=== PATIENT | female | born 1945 | race Caucasian/White ===

== ENCOUNTER → 2017-06-12 | Day surgery (SDC) | payer OTHER, MEDICARE ==
[2017-06-06 11:08] VITALS: Ht 160 cm; Wt 70.5 kg
[~2017-06-12] VITALS: Ht 160 cm; Wt 70.5 kg
[~2017-06-12] MED LIST: AMLO-114 PO; APR25 PO; CARV12.52 PO; CRAN1CAP14 PO; DICY10CA12 PO; HYDR-4079 PO; LIDOCAINE HCL 2% 2 ML VIAL (20MG/ML) ONE; LOSA100T65 PO; MIDAZOLAM HCL 1 MG/ML 2ML VIAL ONE; ONDANSETRON INJ 2 MG/ML 2 ML VIAL ONE; PROPOFOL IV EMULSION 10 MG/ML 20 ML VIAL IV ONE; PRVC/40 PO; RANI150T2 PO; SENNTAB23 PO; SODIUM CHLORIDE 0.9% 500ML 500 ML IV ONE; SPIR25TA PO
[2017-06-12 10:19] VITALS: TEMP 36.2
--- NOTE | 2017-06-12 11:00 | Endo History and Physical ---
History & Physical Date of Service: Jun 12, 2017. Chief Complaint: Chawla's Referring Physician: Dr. León History of Present Illness patient with Chawla's esophagus. Past Medical History Osteoporosis, Arthritis, Gastrointestinal Disorder, Anxiety, Reflux, Heart Disease, Hypertension, Kidney Disease, Depression Past Surgical History Hx Cardiac Surgery: Yes (HEART CATH X 3/NO STENTS) Hx Internal Defibrillator: No Hx Pacemaker: No Hx Abdominal Surgery: Yes (APPY, LORRI, EBONY, BILAT OOPHERECTOMY) Hx Post-Op Nausea and Vomiting: No Hx Cancer Surgery: No Hx Thoracic Surgery: No Hx Orthopedic: Yes (LEFT TKA, LUMBAR FUSION X 2, LEFT/RT CTR) Hx Urinary Tract Surgery: No Family History None Social History Smoking Status: Former Smoker Hx Substance Use: Yes (SEE MED REC) Hx Alcohol Use: No Allergies Coded Allergies: Gabapentin (Verified Adverse Reaction, Unknown, cough, 06/06/17) Ramipril (Verified Adverse Reaction, Unknown, cough, 06/06/17) Current Medications Reported Home Medications Medications Dose Route/Sig Max Daily Dose Days Date Category Apresoline (Hydralazine Hcl) 25 Mg Tab 25 Mg PO BID 06/06/17 Reported Dicyclomine Hcl 10 Mg Cap 1 Cap PO TID PRN 06/06/17 Reported [place] 10MG/325MG (Acetaminophen/Hydrocodone Bitart) Tab 1 Tab PO Q8 PRN 5 04/19/16 Rx Aldactone (Spironolactone) 25 Mg Tab 25 Mg PO QAM 04/18/16 Reported Cozaar (Losartan Potassium) 100 Mg Tab 100 Mg PO QAM 03/20/16 Reported Ranitidine HCl 150 Mg Tab 150 Mg PO BID 01/31/16 Reported Coreg (Carvedilol) 12.5 Mg Tab 12.5 Mg PO BID 03/01/15 Reported Norvasc (Amlodipine Besylate) 10 Mg Tab 10 Mg PO QAM 03/01/15 Reported Cranberry Plus Vitamin C (Cranberry-Vitamin C-Vitamin E) 1 Cap Cap 2 Cap PO QAM 01/28/15 Reported Pravastatin Sodium (Pravastatin Sod) 40 Mg Tab 40 Mg PO QAM 11/24/13 Reported Stool Softener (Sennosides-Docusate Sodium) 1 Tab Tab 2-3 Tablet PO HS 09/02/13 Reported Vital Signs Weight (Kilograms): 70.45 Height (Feet): 5 Height (Inches): 3 Date Time Temp Pulse Resp B/P (MAP) Pulse Ox O2 Delivery O2 Flow Rate FiO2 06/12/17 10:19 36.2 59 20 164/64 (97) 99 Room Air Physical Exam General Appearance: no apparent distress Respiratory/Chest: Auscultation: breath sounds normal Cardiovascular: Heart Auscultation: RRR Abdomen: Inspection & Palpation: soft Liver: non-tender Assessment and Plan stable for EGD
--- NOTE | 2017-06-12 11:29 | Discharge Instructions ---
Endoscopy Patient Instructions Date / Procedure(s) Performed Jun 12, 2017. EGD Allergy Information Coded Allergies: Gabapentin (Verified Adverse Reaction, Unknown, cough, 06/06/17) Ramipril (Verified Adverse Reaction, Unknown, cough, 06/06/17) Discharge Date / Findings Jun 12, 2017. Very short segment of Chawla's-- Biopsied. Provider Instructions Activity Restrictions - No exercising or heavy lifting for 24 hours. - Do not drink alcohol the day of the procedure. - Do not drive a car or operate machinery until the day after the procedure. - Do not make any important decisions or sign important papers in 24 hours after the procedure. Following Day: - Return to full activity which may include returning to work/school. Diet Start your diet with liquids and light foods (jello, soup, juice, toast). Then eat your usual diet if not nauseated. Treatment For Common After Affects For mild abdominal pain, bloating, or excessive gas: - Rest - Eat lightly - Lie on right side Follow-Up Information Follow-up with Dr. León as scheduled Anesthesia Information What You Should Know You have had a procedure that required some medicine to reduce anxiety and discomfort. This treatment is called moderate sedation. After receiving the treatment, you may be sleepy, but you will be able to breathe on your own. The effects of the treatment may last for several hours. Follow these instructions along with Activity/Diet recommendations noted above: * Do NOT do anything where dizziness or clumsiness would be dangerous. * Rest quietly at home today, then you can be up and about tomorrow. * Have a responsible person stay with you the rest of today. * You may have had an I.V. today. If so, you may take the dressing off later today. Recommendations Call your doctor if: * Trouble breathing * Continuous vomiting for more than 24 hours * Temperature above 101 degrees * Severe abdominal pain or bloating * Pain not relieved by pain medicine ordered * There is increased drainage or redness from any incision * A large amount of rectal bleeding greater than 2-3 tablespoons. (If you had a polyp/s removed or have hemorrhoids, a small amount of blood - from the rectum is to be expected.) * You have any unanswered questions or concerns. IN THE EVENT OF A SERIOUS EMERGENCY, GO TO THE NEAREST EMERGENCY ROOM Your discharge instructions were prepared by provider Jesus Angel. Patient Instructions Signature Page Georgina Lexy Patient (or Guardian) Signature/Date: I have read and understand the instructions given to me by my caregivers. Caregiver/RN/Doctor Signature/Date: The above-named patient and/or guardian has received patient instructions on this date. + Original Patient Signature Page (only) stays with chart. Please make copy for patient.
--- NOTE | 2017-06-12 11:40 | GI REPORT ---
Procedure Date: 06/12/2017 10:25 AM Procedure: Upper GI endoscopy Indications: Chawla's esophagus Medicines: See the Anesthesia note for documentation of the administered medications Complications: No immediate complications. Estimated Blood Loss: Estimated blood loss was minimal. Procedure: Pre-Anesthesia Assessment: - Prior to the procedure, a History and Physical was performed, and patient medications, allergies and sensitivities were reviewed. The patient's tolerance of previous anesthesia was reviewed. - The risks and benefits of the procedure and the sedation options and risks were discussed with the patient. All questions were answered and informed consent was obtained. - Patient identification and proposed procedure were verified prior to the procedure by the physician and the nurse. The procedure was verified in the pre-procedure area. - Pre-procedure physical examination revealed no contraindications to sedation. - After reviewing the risks and benefits, the patient was deemed in satisfactory condition to undergo the procedure. After obtaining informed consent, the endoscope was passed under direct vision. Throughout the procedure, the patient's blood pressure, pulse, and oxygen saturations were monitored continuously. The scope was introduced through the mouth, and advanced to the third part of duodenum. The upper GI endoscopy was accomplished without difficulty. The patient tolerated the procedure well. Findings: The Z-line was irregular. Biopsies were taken with a cold forceps for histology. Verification of patient identification for the specimen was done by the physician and nurse using the patient's name and medical record number. Estimated blood loss was minimal. A small hiatus hernia was present. The examined duodenum was normal. The cardia and gastric fundus were normal on retroflexion. Impression: - Z-line irregular c/w very short segment Chawla's. Biopsied. - Small hiatus hernia. - Normal examined duodenum. Recommendation: - Await pathology results. - Continue present medications. - Discharge patient to home. Jesus Angel M.D. Jseus Angel MD 06/12/2017 11:39:28 AM This report has been signed electronically. Note Initiated On: 06/12/2017 10:25 AM I attest to the content of the Intraoperative Record and orders documented therein, exceptions below
[2017-06-12 12:02] VITALS: BP 130/53; PULSE 49; O2SAT 95
--- NOTE | 2017-06-12 12:08 | Anesthesiology Progress Note ---
Anesthesia Post Op Note Date & Time Jun 12, 2017 at 12:08 Vital Signs Pain Intensity: 0 Vital Signs Past 12 Hours Date Time Temp Pulse Resp B/P (MAP) Pulse Ox O2 Delivery O2 Flow Rate FiO2 06/12/17 12:02 49 18 130/53 (78) 95 Room Air 06/12/17 11:44 48 18 124/49 (74) 95 Room Air 06/12/17 11:28 56 16 106/87 (93) 95 Room Air 06/12/17 10:19 36.2 59 20 164/64 (97) 99 Room Air Notes Mental Status: alert / awake / arousable, participated in evaluation Pt Amnestic to Procedure: Yes Nausea / Vomiting: adequately controlled Pain: adequately controlled Airway Patency, RR, SpO2: stable & adequate BP & HR: stable & adequate Hydration State: stable & adequate Anesthetic Complications: no major complications apparent
== END | disposition home or self-care (01) ==
LOC: C.GI 09:54
PROVIDERS: ATTEND Internal Medicine Gastroenterology
DX: K22.70 Barrett's esophagus without dysplasia (principal); K22.8 Other specified diseases of esophagus; K44.9 Diaphragmatic hernia without obstruction or gangrene; I12.9 Hypertensive chronic kidney disease with stage 1 through stage 4 chronic kidney disease, or unspecified chronic kidney disease; M81.0 Age-related osteoporosis without current pathological fracture; F41.9 Anxiety disorder, unspecified; K21.9 Gastro-esophageal reflux disease without esophagitis; N18.9 Chronic kidney disease, unspecified; F32.9 Major depressive disorder, single episode, unspecified; Z96.652 Presence of left artificial knee joint; Z87.891 Personal history of nicotine dependence; Z98.890 Other specified postprocedural states; Z90.89 Acquired absence of other organs; Z90.722 Acquired absence of ovaries, bilateral; Z90.49 Acquired absence of other specified parts of digestive tract

== ENCOUNTER 2020-09-30 21:21 | Inpatient (IN) ==
[2020-09-30] MEDS ORDERED: ACETAMINOPHEN 1,000 MG/100 ML VIAL IV STA (21:55)
[2020-09-30 22:44] LABS: Basophils # (auto) 0.03 K/uL (0-0.2); Basophils % (auto) 0.3 %; Eosinophils # (auto) 0.13 K/uL (0-0.5); Eosinophils % (auto) 1.4 %; Hematocrit (blood only) 33.3 % (37-47); Immature Granulocytes # (auto) 0.03 K/uL (0.00-0.02); Immature Granulocytes % (auto) 0.3 %; Lymphocytes # (auto) 1.34 K/uL (1.2-3.4); Lymphocytes % (auto) 14.2 %; Mean Corpuscular Hemoglobin 29.3 pg (25-34); Mean Corpuscular Volume 88.8 fL (80-100); Mean Platelet Volume 10.5 fL (7.4-10.4); Monocytes # (auto) 1.36 K/uL (0.11-0.59); Monocytes % (auto) 14.4 %; Neutrophils # (auto) 6.55 K/uL (1.4-6.5); Neutrophils % (auto) 69.4 %; Platelet Count 224 K/uL (130-400); RDW Coefficient of Variation 13.9 % (11.5-14.5); RDW Standard Deviation 45.5 fL (36.4-46.3); Red Blood Count 3.75 M/uL (4.2-5.4); White Blood Count 9.44 K/uL (4.8-10.8)
[2020-09-30 22:56] LABS: INR 1.1 (0.9-1.1); Partial Thromboplastin Time 25.9 Seconds (21.0-31.0); Prothrombin Time 10.8 Seconds (9.0-12.0)
[2020-09-30 23:00] LABS: BUN Creatinine Ratio 17.1 (10-20); Calcium 9.3 mg/dl (8.5-10.1); Creatinine Clr Calc Pharmacy 39.5 ml/min; Est GFR (African American) 52.6; Est GFR (Non-African American) 45.4; Magnesium 1.7 mg/dl (1.8-2.4); Potassium 3.4 mmol/L (3.5-5.1)
[2020-09-30 23:05] LABS: Albumin Globulin Ratio 0.7 (0.9-2); Bilirubin,Total 0.8 mg/dl (0.2-1); Globulin 4.1 gm/dl (2.5-4.0); Total Protein 7.1 gm/dl (6.4-8.2); Troponin I 0.034 ng/ml (0-0.045)
[2020-09-30] MEDS ORDERED: MAGNESIUM SULFATE / D5W 1 GM/100 ML BAG IV STA (23:05)
[2020-09-30] MEDS ORDERED: FUROSEMIDE 40 MG/4 ML VIAL IV STA (23:46)
--- NOTE | 2020-09-30 23:46 | Emergency Department Note ---
History of Present Illness General Chief complaint: Swelling/Edema to Extremity Stated complaint: CALF PAIN & EDEMA Time Seen by Provider: 09/30/20 21:47 History of Present Illness Maximum Pain Intensity: 10 This 75-year-old presents to the ER complaining of increasing leg pain and swell ing for the past few days Location: Legs Quality: Painful Severity: Moderate Duration: Past few days Timing: Started a few days ago Context: Pain got worse and patient came in Modifying factors: better with rest; worse with palpation Patient denies history of heart failure. Patient denies chest pain, abdominal pain, fever, chills, flulike illness. She states her temperature normally is 99. 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 Home Medications Medication Instructions Recorded Confirmed Type Cranberry Plus Vitamin C 1 cap PO QPM 07/01/19 09/30/20 History Gaviscon 1 tab PO UD PRN 07/01/19 09/30/20 History Premarin 0.625 mg VAGINAL 2XWK 07/01/19 09/30/20 History amlodipine 10 mg PO QAM 07/01/19 09/30/20 History carvedilol 12.5 mg PO BID 07/01/19 09/30/20 History cyanocobalamin (vitamin B-12) 2,500 mcg PO QPM 07/01/19 09/30/20 History docusate sodium [Stool Softener] 300 mg PO QPM 07/01/19 09/30/20 History hydralazine 25 mg PO TID 07/01/19 09/30/20 History hydrocodone-acetaminophen 1 tab PO BID 07/01/19 09/30/20 History losartan 50 mg PO BID 07/01/19 09/30/20 History nitroglycerin 0.4 mg SUBLINGUAL UD PRN 07/01/19 09/30/20 History omeprazole 20 mg PO QAM 07/01/19 09/30/20 History pravastatin 40 mg PO QAM 07/01/19 09/30/20 History spironolactone 25 mg PO QAM 07/01/19 09/30/20 History aspirin 81 mg chewable tablet 81 mg PO DAILY 09/01/20 09/30/20 History Allergies Allergy/AdvReac Type Severity Reaction Status Date / Time oxycodone Allergy Intermediate "makes me Verified 09/30/20 22:31 go crazy" gabapentin Allergy Mild cough Verified 09/30/20 22:31 ramipril Allergy Mild cough Verified 09/30/20 22:31 Past Med/Surg History Medical History Aortic stenosis "moderately severe by echo September 2013" Chawla's esophagus Cardiac murmur Chronic back pain Chronic sialoadenitis CKD (chronic kidney disease) stage 3, GFR 30-59 ml/min Coronary artery disease "nonocclusive disease by cath [facility] [place]" Esophageal motility disorder "noted on barium swallow 10/2014" GERD (gastroesophageal reflux disease) History of esophageal dilatation Hyperlipidemia Hypertension Leaky heart valve per pt aorta--follows with Dr. Nivia Wang historian Surgical History History of appendectomy History of bilateral tubal ligation History of cardiac cath x3--last 12/2018 no stents History of carpal tunnel release of both wrists History of cholecystectomy History of colonoscopy History of esophagogastroduodenoscopy (EGD) History of hysterectomy History of lumbar spinal fusion History of lumpectomy cant remember which breast---benign fatty tissue History of sinus surgery History of tonsillectomy History of tooth extraction History of total left knee replacement (TKR) History of umbilical hernia repair Family History Other No family history of adverse response to anesthesia No family history of bleeding disorder Social History Smoking Status: Former smoker Second Hand Exposure: Yes (husand smoked); Hx Alcohol Use: No Hx Substance Use: No Preferred Language: Pashto Communication Ability: Effective Mold Clamper Required: No Beliefs That Will Affect Care: None Current Living Situation: Spouse Feels Safe at Home: Yes Assistive Devices: Cane, Glasses and Walker Review of Systems A total of 10 systems reviewed and were otherwise negative Physical Exam Vital Signs Vital Signs - 24 hr 09/30/20 21:28 09/30/20 22:00 09/30/20 22:28 Temperature 37.8 C H Temperature Source Oral Pulse Rate 64 66 65 Pulse Rate from SpO2 Sensor Pulse Rhythm Regular Pulse Strength Normal Respiratory Rate 16 19 20 Respiratory Effort / Characteristics Non-Labored Respiratory Depth Normal Respiratory Pattern Regular Blood Pressure 174/59 H 177/72 H Blood Pressure Mean 97 107 Blood Pressure Position Sitting Pulse Oximetry 94 Oxygen Delivery Method Room Air Sepsis Recent Fever Within 48 Hours No Sepsis New/Unexplained Change in Mental Status N/A Sepsis Action Taken by Nursing No Action Required 09/30/20 22:30 09/30/20 22:40 09/30/20 23:32 Temperature Temperature Source Pulse Rate 64 66 66 Pulse Rate from SpO2 Sensor Pulse Rhythm Pulse Strength Respiratory Rate 16 17 19 Respiratory Effort / Characteristics Respiratory Depth Respiratory Pattern Blood Pressure 183/73 H 146/69 H Blood Pressure Mean 109 94 Blood Pressure Position Pulse Oximetry 96 93 Oxygen Delivery Method Room Air Room Air Sepsis Recent Fever Within 48 Hours Sepsis New/Unexplained Change in Mental Status Sepsis Action Taken by Nursing 09/30/20 23:34 10/01/20 00:00 10/01/20 00:30 Temperature Temperature Source Pulse Rate 65 65 60 Pulse Rate from SpO2 Sensor 65 Pulse Rhythm Pulse Strength Respiratory Rate 20 17 18 Respiratory Effort / Characteristics Respiratory Depth Respiratory Pattern Blood Pressure 147/66 H 147/49 H Blood Pressure Mean 93 81 Blood Pressure Position Pulse Oximetry 92 93 Oxygen Delivery Method Room Air Room Air Sepsis Recent Fever Within 48 Hours Sepsis New/Unexplained Change in Mental Status Sepsis Action Taken by Nursing VITALS: Vitals are noted on the nurse's note and reviewed by myself. Vital sig ns stable. GENERAL: Pleasant female, in no acute distress, nondiaphoretic, well-developed well-nourished. SKIN: Capillary reflex less than 2 seconds. HEENT: Normocephalic. PERRLA. EOMI. Nares patent. Mucous membranes moist. Neck is supple without nuchal rigidity. HEART: Regular rate and rhythm LUNGS: Clear to auscultation bilaterally without wheezes, rales or rhonchi. No retractions or accessory muscle use. ABDOMEN: Positive bowel sounds x 4. Normal tympanic percussion. Soft, nontender, without masses or organomegaly. Claudio sign negative. No guarding or rebound tenderness. MUSCULOSKELETAL: No gross musculoskeletal defects. +1 pitting edema up to the mid tib-fib bilaterally. NEURO: Patient was alert and oriented to person place and time. Normal sensation to light and sharp touch. No focal neurological deficits. Course Administered Medications Discontinued Medications Fentanyl Citrate (Fentanyl Citrate 100 Mcg/2 Ml Vial) 50 mcg IV NOW STA Stop: 09/30/20 23:50 Last Admin: 10/01/20 00:11 Dose: 50 mcg Documented by: [id number] Furosemide (Furosemide 40 Mg/4 Ml Vial) 40 mg IV NOW STA Stop: 09/30/20 23:47 Last Admin: 10/01/20 00:16 Dose: 40 mg Documented by: [id number] Acetaminophen (Ofirmev) 1,000 mg in 100 mls @ 400 mls/hr IV NOW STA Stop: 09/30/20 22:09 Last Infusion: 09/30/20 22:56 Dose: 0 mls/hr Documented by: [id number] Admin: 09/30/20 22:40 Dose: 400 mls/hr Documented by: [id number] Magnesium Sulfate/Dextrose (Magnesium Sulfate / D5w) 1 gm in 100 mls @ 100 mls/hr IV NOW STA Stop: 10/01/20 00:04 Last Infusion: 10/01/20 00:50 Dose: 0 mls/hr Documented by: [id number] Admin: 09/30/20 23:32 Dose: 100 mls/hr Documented by: [id number] Medical Decision Making Medical Records Attestation: I reviewed the patient's medical records. Home Medications Current Medication List: was personally reviewed by me Laboratory Data Attestation: I reviewed the patient's lab results. Result diagrams: 09/30/20 22:32 09/30/20 22:32 Lab Results 09/30/20 09/30/20 09/30/20 Range/Units 22:32 22:32 22:32 WBC 9.44 (4.8-10.8) K/uL RBC 3.75 L (4.2-5.4) M/uL Hgb 11.0 L (12.0-16.0) g/dL Hct 33.3 L (37-47) % MCV 88.8 (80-100) fL MCH 29.3 (25-34) pg MCHC 33.0 (32-36) g/dL RDW Std Deviation 45.5 (36.4-46.3) fL RDW Coeff of Breanne 13.9 (11.5-14.5) % Plt Count 224 (130-400) K/uL MPV 10.5 H (7.4-10.4) fL Immature Gran % (Auto) 0.3 % Neut % (Auto) 69.4 % Lymph % (Auto) 14.2 % [facility] % (Auto) 14.4 % Eos % (Auto) 1.4 % Baso % (Auto) 0.3 % Neut # (Auto) 6.55 H (1.4-6.5) K/uL Lymph # (Auto) 1.34 (1.2-3.4) K/uL [facility] # (Auto) 1.36 H (0.11-0.59) K/uL Eos # (Auto) 0.13 (0-0.5) K/uL Baso # (Auto) 0.03 (0-0.2) K/uL Immature Gran # (Auto) 0.03 H (0.00-0.02) K/uL PT 10.8 (9.0-12.0) Seconds INR 1.1 (0.9-1.1) APTT 25.9 (21.0-31.0) Seconds PTT Ratio 1.0 Sodium 142 (136-145) mmol/L Potassium 3.4 L (3.5-5.1) mmol/L Chloride 109 H (98-107) mmol/L Carbon Dioxide 27 (21-32) mmol/L Anion Gap 6.0 (3-11) BUN 20 H (7-18) mg/dl Creatinine 1.16 (0.6-1.2) mg/dl Est Cr Clr Drug Dosing 39.5 ml/min Est GFR ( Amer) 52.6 Est GFR (Non-Af Amer) 45.4 BUN/Creatinine Ratio 17.1 (10-20) Glucose 110 H (70-99) mg/dl Calcium 9.3 (8.5-10.1) mg/dl Magnesium 1.7 L (1.8-2.4) mg/dl Total Bilirubin 0.8 (0.2-1) mg/dl AST 15 (15-37) U/L ALT 10 L (12-78) U/L Alkaline Phosphatase 87 (45-117) U/L Total Creatine Kinase 67 (26-192) U/L Troponin I 0.034 (0-0.045) ng/ml NT-Pro-B Natriuret Pep 4419 H (0-1800) pg/ml Total Protein 7.1 (6.4-8.2) gm/dl Albumin 3.0 L (3.4-5.0) gm/dl Globulin 4.1 H (2.5-4.0) gm/dl Albumin/Globulin Ratio 0.7 L (0.9-2) 10/01/20 Range/Units 00:42 WBC (4.8-10.8) K/uL RBC (4.2-5.4) M/uL Hgb (12.0-16.0) g/dL Hct (37-47) % MCV (80-100) fL MCH (25-34) pg MCHC (32-36) g/dL RDW Std Deviation (36.4-46.3) fL RDW Coeff of Breanne (11.5-14.5) % Plt Count (130-400) K/uL MPV (7.4-10.4) fL Immature Gran % (Auto) % Neut % (Auto) % Lymph % (Auto) % [facility] % (Auto) % Eos % (Auto) % Baso % (Auto) % Neut # (Auto) (1.4-6.5) K/uL Lymph # (Auto) (1.2-3.4) K/uL [facility] # (Auto) (0.11-0.59) K/uL Eos # (Auto) (0-0.5) K/uL Baso # (Auto) (0-0.2) K/uL Immature Gran # (Auto) (0.00-0.02) K/uL PT (9.0-12.0) Seconds INR (0.9-1.1) APTT (21.0-31.0) Seconds PTT Ratio Sodium (136-145) mmol/L Potassium (3.5-5.1) mmol/L Chloride (98-107) mmol/L Carbon Dioxide (21-32) mmol/L Anion Gap (3-11) BUN (7-18) mg/dl Creatinine (0.6-1.2) mg/dl Est Cr Clr Drug Dosing ml/min Est GFR ( Amer) Est GFR (Non-Af Amer) BUN/Creatinine Ratio (10-20) Glucose (70-99) mg/dl Calcium (8.5-10.1) mg/dl Magnesium (1.8-2.4) mg/dl Total Bilirubin (0.2-1) mg/dl AST (15-37) U/L ALT (12-78) U/L Alkaline Phosphatase (45-117) U/L Total Creatine Kinase (26-192) U/L Troponin I 0.045 (0-0.045) ng/ml NT-Pro-B Natriuret Pep (0-1800) pg/ml Total Protein (6.4-8.2) gm/dl Albumin (3.4-5.0) gm/dl Globulin (2.5-4.0) gm/dl Albumin/Globulin Ratio (0.9-2) Imaging Data Attestation: I personally reviewed and interpreted this imaging study as follows: MDM Narrative Prior records/ancillary studies reviewed and summarized above. Nursing notes reviewed. Additional history obtained from family. The patient's history was concerning for leg pain and swelling. Differential diagnosis: Etiologies such as CHF, DVT, metabolic, infection, hypo/hyperglycemia, electrolyte abnormalities, cardiac sources, intracerebral event, toxicologic, neurologic, as well as others were entertained. Physical examination: As above. ER treatment provided: IV Lock An order was placed for continuous cardiac monitoring. The monitor shows a rate of 60-1 10 with a sinus rhythm. Tylenol, Lasix, fentanyl, magnesium On reassessment the patient felt better. Diagnostics interpretation by me: ECG: Ordered for weakness EKG: Normal sinus, normal intervals, left ventricular hypertrophy, no acute ST-T wave changes. Rate of 63. Impression normal sinus rhythm with left ventricular perjury interpreted by myself I think arrhythmia is unlikely. EKG shows normal sinus rhythm with no interval abnormalities such as QT prolongation or WPW. There are no findings to suggest Brugada syndrome. Cardiac monitoring in the emergency department reveals no tachycardic or bradycardic dysrhythmia. Hypertrophic cardiomyopathy was considered but there are no clear historical elements pointing toward this. EKG is not suggestive. The QRS voltage is not extremely large and there are no suggestive Q waves. The labs revealed elevated BNP Negative troponin x2 Low magnesium Imaging studies: Chest x-ray with no acute consolidation, pneumothorax or free air per my interpretation US VENOUS BILATERAL LOWER EXTREMITIES: No evidence of DVT within the lower extremities. Radiologist: Ej Love MD Consultation: A consultation was placed with the hospitalist, Dr Mauro. The case was discussed and diagnostics were reviewed. The patient was evaluated in the ER for further treatment. Exam and history seem consistent with worsening leg pain who cannot tolerate walking. Patient will be evaluated for possible admission. She was given Lasix for the swelling. No heart failure on x-ray. Patient was given a few rounds of pain meds. She felt uncomfortable walking. She is agreeable to treatment plan of possible admission. By the evaluation outlined above emergent etiologies such as infection, electrolyte abnormalities, intracerebral event, toxologic, neurologic, abnormalities blood glucose, metabolic, as well as others were deemed relatively unlikely. The pt informed about the findings as listed above. All questions were answered and pleased with the treatment. Case reviewed with my attending. The chart was completed utilizing [employer] Speech voice recognition software. Grammatical errors, random word insertions, pronoun errors, and incomplete sentences are an occassional consequence of this system due to software limitations, ambient noise, and hardware issues. Any formal questions or concerns about the content, text, or information contained within the body of this dictation should be directly addressed to the physician phys assistant for clarification. Impression & Plan Bilateral leg pain, Hypomagnesemia Discharge Plan Visit Data Chief Complaint: Swelling/Edema to Extremity Stated Complaint: CALF PAIN & EDEMA ED Provider: P[facility] ED Midlevel Provider: Asiya Galvan Discharge Problem: Bilateral leg pain, Hypomagnesemia Patient Disposition: Being Evaluated by Hospitalist Condition: Good Forms Stand Alone Forms: My [facility] Prescriptions Prescriptions: No Action aspirin 81 mg tablet,chewable 81 mg PO DAILY RF: 0 losartan 50 mg Tablet 50 mg PO BID RF: 0 carvedilol 12.5 mg Tablet 12.5 mg PO BID RF: 0 pravastatin 40 mg Tablet 40 mg PO QAM RF: 0 hydralazine 25 mg Tablet 25 mg PO TID RF: 0 Cranberry Plus Vitamin C 140-100 mg Capsule 1 cap PO QPM RF: 0 hydrocodone-acetaminophen 10-325 mg Tablet 1 tab PO BID RF: 0 spironolactone 25 mg Tablet 25 mg PO QAM RF: 0 amlodipine 10 mg Tablet 10 mg PO QAM RF: 0 Premarin 0.625 mg/gram Cream 0.625 mg VAGINAL 2XWK RF: 0 nitroglycerin 0.4 mg Tablet, Sublingual 0.4 mg sublingual UD PRN (Reason: Angina) RF: 0 omeprazole 20 mg Capsule,Delayed Release(Dr/Ec) 20 mg PO QAM RF: 0 docusate sodium [Stool Softener] 100 mg Tablet 300 mg PO QPM RF: 0 Gaviscon 80-14.2 mg Tablet,Chewable 1 tab PO UD PRN (Reason: Abdominal Discomfort) RF: 0 cyanocobalamin (vitamin B-12) 2,500 mcg Tablet 2,500 mcg PO QPM RF: 0 Referrals Referrals: Jazzy Appiah DO [Primary Care Provider] -
[2020-09-30] MEDS ORDERED: fentaNYL citrate 100 MCG/2 ML VIAL IV STA (23:49)
[2020-10-01] MEDS ORDERED: POTASSIUM CHLORIDE CRTAB 20 MEQ TABCR PO STA ×2 (01:09→04:28)
[2020-10-01 01:13] LABS: Troponin I 0.045 ng/ml (0-0.045)
--- NOTE | 2020-10-01 01:27 | Emergency Department Note ---
ED Visit Note The patient was seen and examined with Crystal Galvan PA-C. I agree with the history, physical and findings. Please see the note for disposition and details. New onset CHF. Patient was diuresed. She also noted moderate pain in her legs. No DVTs were noted. She was having significant difficulty walking. Consultation was made with internal medicine for admission. .
[2020-10-01] MEDS ORDERED: DOXYCYCLINE HYCLATE 100 MG in DEXTROSE 5% 100 ML IV STA (01:42)
--- NOTE | 2020-10-01 01:43 | History & Physical Report ---
Date of Service October 01, 2020 Assessment & Plan (1) CHF (congestive heart failure): ? Right-sided CHF, mild fluid retention symptoms presenting as bilateral leg swelling hx COPD, pulmonary hypertension as per records History dietary indiscretion Uncontrolled hypertension possibly contributory Secondary RLE cellulitis rule out bony foot injury, no overt sepsis for now rheumatic heart disease/VHD (severe , moderate AR, mild MR, mild TR on TTE 2018) PVD, stable carotid artery disease and stable PAD without classic claudication symptoms as per recent outpatient [facility] vascular surgery follow-up visit (08/2020) chronic anemia, hemoglobin at baseline chronic sialoadenitis as per records, periodic antibiotic Rx prescribed by [facility] [place] Hyperglycemia rule out DM Hypokalemia past tobacco abuse PCU Diuretic Rx Strict I/Os, daily weights, CHF education Update TTE, Cardiology consult RE CHF Titrate home BP meds Doxycycline for RLE cellulitis Plain x-rays of right foot Re: Pain rule out bony injury Check hemoglobin A1c Replace electrolytes PT OT eval DVT prophylaxis. Lovenox subcu Full code Text document was generated using [employer] voice recognition software. It may contain grammatical or spelling errors. Kindly contact undersigned for clarification of any documentation item in question. History of Present Illness Chief Complaint: Leg swelling, R foot pain Primary Care Provider: Jazzy Appiah, History obtained from patient, family, and records. Medical history significant for Medical history significant for hypertension, nonocclusive CAD, PVD, rheumatic heart disease as per records, VHD (severe , moderate AR, mild MR, mild TR on TTE 2018), COPD, pulmonary hypertension as per records, chronic anemia (baseline hemoglobin 11), chronic pain as per records, chronic sialoadenitis as per records, past tobacco abuse. Last confinement March 2016 for intractable neck pain secondary to muscle spasm. 2 days ago, patient noted bilateral leg swelling right greater than the left with some abdominal distention without unusual chest pain or S OB symptoms. Everything feels tight as per patient. Admits to salty food intake. Denies OTC NSAID intake. Patient later on noted bilateral leg pain with achy right foot pain worse on attempted ambulation. No unusual back pain, no recollection of recent trauma. Patient does not regularly check weight and BP at home. At the ER, patient given Lasix for possible CHF. Temperature elevation noted at the ER which according to patient is normal for her. MEDICAL HISTORY: As above. 08/11/2020 ABIs : RLE mild arterial occlusive disease, LLE moderate arterial occlusive disease SURGERIES: Carpal tunnel, hernia repair, cholecystectomy, back surgery, knee replacement, appendectomy, hysterectomy. FAMILY HISTORY: Hypertension, dementia, diabetes, heart disease and hypertension. PERSONAL AND SOCIAL HISTORY: Past tobacco abuse. No chronic intake of alcoholic beverages. Retired [employer] employee Allergies Allergy/AdvReac Type Severity Reaction Status Date / Time oxycodone AdvReac Intermediate "makes me Verified 10/01/20 01:44 go crazy" gabapentin AdvReac Mild cough Verified 10/01/20 01:44 ramipril AdvReac Mild cough Verified 10/01/20 01:44 Home Medications Medication Instructions Recorded Confirmed Type Cranberry Plus Vitamin C 1 cap PO QPM 07/01/19 09/30/20 History Gaviscon 1 tab PO UD PRN 07/01/19 09/30/20 History Premarin 0.625 mg VAGINAL 2XWK 07/01/19 09/30/20 History amlodipine 10 mg PO QAM 07/01/19 09/30/20 History carvedilol 12.5 mg PO BID 07/01/19 09/30/20 History cyanocobalamin (vitamin B-12) 2,500 mcg PO QPM 07/01/19 09/30/20 History docusate sodium [Stool Softener] 300 mg PO QPM 07/01/19 09/30/20 History hydralazine 25 mg PO TID 07/01/19 09/30/20 History hydrocodone-acetaminophen 1 tab PO BID 07/01/19 09/30/20 History losartan 50 mg PO BID 07/01/19 09/30/20 History nitroglycerin 0.4 mg SUBLINGUAL UD PRN 07/01/19 09/30/20 History omeprazole 20 mg PO QAM 07/01/19 09/30/20 History pravastatin 40 mg PO QAM 07/01/19 09/30/20 History spironolactone 25 mg PO QAM 07/01/19 09/30/20 History aspirin 81 mg chewable tablet 81 mg PO DAILY 09/01/20 09/30/20 History Past Med/Surg History Medical History Aortic stenosis "moderately severe by echo September 2013" Chawla's esophagus Cardiac murmur Chronic back pain Chronic sialoadenitis CKD (chronic kidney disease) stage 3, GFR 30-59 ml/min Coronary artery disease "nonocclusive disease by cath [facility] September 2013" Esophageal motility disorder "noted on barium swallow 10/2014" GERD (gastroesophageal reflux disease) History of esophageal dilatation Hyperlipidemia Hypertension Leaky heart valve per pt aorta--follows with Dr. Nivia Wang historian Surgical History History of appendectomy History of bilateral tubal ligation History of cardiac cath x3--last 12/2018 no stents History of carpal tunnel release of both wrists History of cholecystectomy History of colonoscopy History of esophagogastroduodenoscopy (EGD) History of hysterectomy History of lumbar spinal fusion History of lumpectomy cant remember which breast---benign fatty tissue History of sinus surgery History of tonsillectomy History of tooth extraction History of total left knee replacement (TKR) History of umbilical hernia repair Family History Other No family history of adverse response to anesthesia No family history of bleeding disorder Social History Smoking Status: Former smoker Second Hand Exposure: Yes (husand smoked); Hx Alcohol Use: No Hx Substance Use: No Preferred Language: Occitan Communication Ability: Effective 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 Beliefs That Will Affect Care: None Current Living Situation: Spouse Other Information That Helps Us Care for You: No Feels Safe at Home: Yes Safety Concerns: Feels Safe At This Time Assistive Devices: Cane, Glasses and Walker Review of Systems Review of Systems: As per HPI, all 10 systems reviewed, all other ROS negative Physical Exam Physical Exam: GENERAL: uncomfortable, anxious, no respiratory distress SKIN: Pallor , warm HEENT: Pale palpebral conjunctivae, no ptosis, dry buccal mucosa NECK : Supple, no tenderness CHEST : Decreased breath sounds, no tenderness HEART : RRR, systolic murmur loudest on the left sternal border, obliterated S1- S2 ABDOMEN: Some distention, nontender EXTREMITIES : Bilateral LE swelling R>L, warm RLE compared to LLE, minimal RLE, right foot tenderness NEUROLOGIC : Coherent, no facial asymmetry, no other gross focality Results & Data Results & Data ([facility]) Vital Signs (Past 12 Hours) Vital Signs Temp Pulse Resp BP Pulse Ox 10/01/20 00:30 60 18 147/49 H 10/01/20 00:00 65 17 147/66 H 93 09/30/20 23:34 65 20 92 09/30/20 23:32 66 19 146/69 H 93 09/30/20 22:40 66 17 183/73 H 96 09/30/20 22:30 64 16 09/30/20 22:28 65 20 09/30/20 22:00 66 19 177/72 H 09/30/20 21:28 37.8 C H 64 16 174/59 H 94 Laboratory Results Laboratory Results WBC 9.44 K/uL (4.8-10.8) 09/30/20 22:32 RBC 3.75 M/uL (4.2-5.4) L 09/30/20 22:32 Hgb 11.0 g/dL (12.0-16.0) L 09/30/20 22:32 Hct 33.3 % (37-47) L 09/30/20 22:32 MCV 88.8 fL (80-100) 09/30/20 22:32 MCH 29.3 pg (25-34) 09/30/20 22:32 MCHC 33.0 g/dL (32-36) 09/30/20 22:32 RDW Std Deviation 45.5 fL (36.4-46.3) 09/30/20 22:32 RDW Coeff of Breanne 13.9 % (11.5-14.5) 09/30/20 22:32 Plt Count 224 K/uL (130-400) 09/30/20 22:32 MPV 10.5 fL (7.4-10.4) H 09/30/20 22:32 Immature Gran % (Auto) 0.3 % 09/30/20 22:32 Neut % (Auto) 69.4 % 09/30/20 22:32 Lymph % (Auto) 14.2 % 09/30/20 22:32 [place] % (Auto) 14.4 % 09/30/20 22:32 Eos % (Auto) 1.4 % 09/30/20 22:32 Baso % (Auto) 0.3 % 09/30/20 22:32 Neut # (Auto) 6.55 K/uL (1.4-6.5) H 09/30/20 22:32 Lymph # (Auto) 1.34 K/uL (1.2-3.4) 09/30/20 22:32 [place] # (Auto) 1.36 K/uL (0.11-0.59) H 09/30/20 22:32 Eos # (Auto) 0.13 K/uL (0-0.5) 09/30/20: Baso # (Auto) 0.03 K/uL (0-0.2) 09/30/20: Immature Gran # (Auto) 0.03 K/uL (0.00-0.02) H 09/30/20 22:32 PT 10.8 Seconds (9.0-12.0) 09/30/20 22:32 INR 1.1 (0.9-1.1) 09/30/20 22:32 APTT 25.9 Seconds (21.0-31.0) 09/30/20: PTT Ratio 1.0 09/30/20 22:32 Sodium 142 mmol/L (136-145) 09/30/20 22:32 Potassium 3.4 mmol/L (3.5-5.1) L 09/30/20 22:32 Chloride 109 mmol/L (98-107) H 09/30/20 22:32 Carbon Dioxide 27 mmol/L (21-32) 09/30/20 22:32 Anion Gap 6.0 (3-11) 09/30/20 22:32 BUN 20 mg/dl (7-18) H 09/30/20 22:32 Creatinine 1.16 mg/dl (0.6-1.2) 09/30/20 22:32 Est Cr Clr Drug Dosing 39.5 ml/min 09/30/20 22:32 Est GFR ( Amer) 52.6 09/30/20 22:32 Est GFR (Non-Af Amer) 45.4 09/30/20 22:32 BUN/Creatinine Ratio 17.1 (10-20) 09/30/20 22:32 Glucose 110 mg/dl (70-99) H 09/30/20 22:32 Calcium 9.3 mg/dl (8.5-10.1) 09/30/20 22:32 Magnesium 1.7 mg/dl (1.8-2.4) L 09/30/20 22:32 Total Bilirubin 0.8 mg/dl (0.2-1) 09/30/20 22:32 AST 15 U/L (15-37) 09/30/20 22:32 ALT 10 U/L (12-78) L 09/30/20 22:32 Alkaline Phosphatase 87 U/L (45-117) 09/30/20 22:32 Total Creatine Kinase 49 U/L (26-192) 10/01/20 00:42 Troponin I 0.045 ng/ml (0-0.045) 10/01/20 00:42 NT-Pro-B Natriuret Pep 4419 pg/ml (0-1800) H 09/30/20 22:32 Total Protein 7.1 gm/dl (6.4-8.2) 09/30/20 22:32 Albumin 3.0 gm/dl (3.4-5.0) L 09/30/20 22:32 Globulin 4.1 gm/dl (2.5-4.0) H 09/30/20 22:32 Albumin/Globulin Ratio 0.7 (0.9-2) L 09/30/20 22:32 Diagnostic Findings Chest x-ray as per my interpretation cardiomegaly Abdominal ultrasound initial read: No ascites LE venous Dopplers initial read: No evidence of DVT within lower extremities. EKG as per my interpretation : Rate 65, NSR, normal axis, ST depression lateral leads, LVH
[2020-10-01 02:15] LABS: Appearance Urine Clear (Clear); Bacteria Urine Automated 4+ (Negative); Bilirubin Urine Negative (Negative); Blood Urine Negative (Negative); Color Urine Yellow; Epithelial Cell Urine Auto >30 /lpf (0-5); Glucose Urine UA Negative (Negative); Ketones Urine Negative (Negative); Leukocyte Esterase Urine Trace (Negative); Nitrite Urine Negative (Negative); Protein Urine 3+ (Negative); Specific Gravity Urine 1.017 (1.000-1.030); Urobilinogen Urine Negative (Negative)
[2020-10-01] MEDS ORDERED: LOSARTAN POTASSIUM 50 MG TAB PO STA (02:25)
[2020-10-01 02:51] LABS: Influenza A virus by PCR Negative (Neg); Influenza B virus by PCR Negative (Neg); RSV by PCR Negative (Neg); SARS CoV2 RNA(COVID-19) InHosp NEGATIVE (Negative)
[2020-10-01] MEDS ORDERED: NITROGLYCERIN SL 0.4 MG/TAB TAB SL PRN (04:28)
[2020-10-01] MEDS ORDERED: ACETAMINOPHEN 325 MG TAB PO PRN (04:28)
[2020-10-01] MEDS ORDERED: PROMETHAZINE HCL 12.5 MG in SODIUM CHLORIDE 0.9% 50 ML IV PRN (04:28)
[2020-10-01] MEDS ORDERED: MoRPHine SULFATE 4 MG/ML 1 ML CARP\\VIAL IV PRN (04:28)
[2020-10-01] MEDS ORDERED: carvediloL 12.5 MG TAB PO SCH ×2 (05:25→09:00)
[2020-10-01 06:32] LABS: Basophils # (auto) 0.03 K/uL (0-0.2); Basophils % (auto) 0.4 %; Eosinophils # (auto) 0.14 K/uL (0-0.5); Eosinophils % (auto) 1.7 %; Hematocrit (blood only) 31.7 % (37-47); Hemoglobin 10.4 g/dL (12.0-16.0); Immature Granulocytes # (auto) 0.01 K/uL (0.00-0.02); Immature Granulocytes % (auto) 0.1 %; Lymphocytes # (auto) 1.67 K/uL (1.2-3.4); Lymphocytes % (auto) 20.8 %; Mean Corpuscular Hemoglobin 29.2 pg (25-34); Mean Corpuscular Hgb Conc 32.8 g/dL (32-36); Mean Platelet Volume 10.5 fL (7.4-10.4); Monocytes # (auto) 1.25 K/uL (0.11-0.59); Monocytes % (auto) 15.5 %; Neutrophils # (auto) 4.94 K/uL (1.4-6.5); Neutrophils % (auto) 61.5 %; Platelet Count 215 K/uL (130-400); RDW Coefficient of Variation 13.7 % (11.5-14.5); RDW Standard Deviation 45.5 fL (36.4-46.3); Red Blood Count 3.56 M/uL (4.2-5.4); White Blood Count 8.04 K/uL (4.8-10.8)
[2020-10-01 07:01] LABS: BUN Creatinine Ratio 15.7 (10-20); Calcium 8.5 mg/dl (8.5-10.1); Creatinine Clr Calc Pharmacy 39.2 ml/min; Est GFR (African American) 52.1; Est GFR (Non-African American) 44.9; Magnesium 1.8 mg/dl (1.8-2.4); Potassium 3.6 mmol/L (3.5-5.1)
--- NOTE | 2020-10-01 07:23 | Ultrasound Report ---
BILATERAL LOWER EXTREMITY VENOUS DOPPLER HISTORY: Bilateral lower extremity swelling COMPARISON STUDY: None. FINDINGS: There is normal compressibility, flow, and augmentation within the bilateral lower extremit y deep venous systems. IMPRESSION: No DVT within the right or left lower extremity. ACT 112: Negative or not required by law. Electronically signed by: Fernando Vargas M.D. 10/01/2020 7:21 AM
--- NOTE | 2020-10-01 07:24 | Ultrasound Report ---
US abdomen ltd ascites CLINICAL HISTORY: Abdominal distention. Assess for ascites. COMPARISON STUDY: None. FINDINGS: Transabdominal scanning of the abdomen was performed with medical service representative images submitted. No fluid identified within the abdomen. IMPRESSION: No ascites. ACT 112: Negative or not required by law. Electronically signed by: Fernando Vargas M.D. 10/01/2020 7:22 AM
--- NOTE | 2020-10-01 07:54 | XRay Report ---
XR chest 1V portable HISTORY: Dyspnea COMPARISON: Chest 03/01/2015. FINDINGS: No pneumothorax. No pleural effusions. The heart remains mildly enlarged. There are dense c alcifications at the mitral annulus. No focal lung consolidations to suggest pneumonia. No evidence f or pulmonary edema. Retrocardiac density favors a small hiatus hernia. IMPRESSION: No significant change compared to the prior study. No acute process. ACT 112: Negative or not required by law. Electronically signed by: Fernando Vargas M.D. 10/01/2020 7:53 AM
[2020-10-01] MEDS ORDERED: FUROSEMIDE 40 MG/4 ML VIAL IV SCH (08:00)
--- NOTE | 2020-10-01 08:27 | XRay Report ---
RIGHT FOOT 3 VIEWS HISTORY: r foot pain COMPARISON: None. FINDINGS: There is no fracture or dislocation. The bones are osteopenic. Diffuse soft tissue swelling . Small plantar heel spur. Mild degenerative changes throughout the right foot. No destructive change s to suggest osteomyelitis. No radiopaque foreign bodies. IMPRESSION: Diffuse soft tissue swelling within the right foot. No fractures or osteomyelitis. ACT 112: Negative or not required by law. Electronically signed by: Fernando Vargas M.D. 10/01/2020 8:26 AM
[2020-10-01] MEDS: amLODIPine BESYLATE 5 MG TAB PO SCH (08:45)
[2020-10-01] MEDS: SPIRONOLACTONE 25 MG TAB PO SCH (08:46)
[2020-10-01] MEDS: ENOXAPARIN INJ 30 MG/0.3 ML SYR SQ SCH (08:46)
[2020-10-01] MEDS: PANTOprazole 40 MG TAB PO SCH (08:46)
[2020-10-01] MEDS: PRAVASTATIN SOD 40 MG TAB PO SCH (08:46)
[2020-10-01] MEDS: ASPIRIN 81 MG ECTAB PO SCH (08:46)
[2020-10-01] MEDS: hydrALAZINE TAB 50 MG TAB PO SCH ×3 (08:51→21:07)
[2020-10-01] MEDS ORDERED: hydrALAZINE HCL 25 MG TAB PO SCH (09:00)
--- NOTE | 2020-10-01 12:39 | Cardiology Consultation ---
Date of Consultation October 01, 2020 Assessment & Plan (1) Right foot pain: Patient's predominant complaint this morning is right foot pain and notes this is her presenting issue. Has had some increase in peripheral edema recently no worsening shortness of breath or specific cardiac complaint. Echocardiogram today on preliminary review reveals no significant change with normal LV systolic function moderate mitral insufficiency and moderate to severe aortic stenosis. Patient has responded to diuretics but still with right foot pain Recommendations: We will reduce carvedilol given resting bradycardia to 6.25 mg twice per day. Check uric acid question gout Agree with titration of hydralazine higher for blood pressure control. Will initiate low-dose diuretic with furosemide 20 mg/day following renal function Given history of peripheral vascular disease, probably left-sided with new right-sided complaints will check arterial duplex We will continue to follow with during hospitalization (2) Edema: (3) Hypertension: (4) Aortic stenosis: History of Present Illness Reason for Consultation: ? Congestive heart failure, edema Requesting Physician: Ander Lama MD Attending Physician: Ander Lama MD History of Present Illness Patient is a 75-year-old female whose ongoing issues include 1. 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 Normal to hyperdynamic LV function with left hypertrophy 3. Mild to moderate nonobstructive coronary artery disease, cardiac catheterization 01/09/2019, 09/26/2013 4. Moderate bilateral carotid artery disease 5. Peripheral vascular disease left leg greater than right 6. Hypertension 7. Dyslipidemia 8. CKD stage IIIa 9. Chronic pain 10. History of Chawla's esophagus Patient presents this admission noting recent gradual increase in both lower extremity edema with combination worsening pain both lower extremities right greater than left with marked tenderness of the right foot. She noted no chest pains, worsening shortness of breath, overt orthopnea. Noted no fevers chills unexplained infections. Notes no cough or shortness of breath. Appetite and weight have been generally stable. No changes in medications recently. Patient has chronic issues with neck and back pain but current lower extremity pain right foot new per patient No bleeding issues melena medication dysuria hematuria. Laboratories notable for elevated BNP however chest x-ray clear Patient since admission treated with IV furosemide 40 mg x 2 doses and begun on oral doxycycline for possible cellulitis. Hydralazine increased for hypertension control Patient currently noting only complaint marked tenderness and pain right foot Allergies Allergy/AdvReac Type Severity Reaction Status Date / Time oxycodone AdvReac Intermediate "makes me Verified 10/01/20 01:44 go crazy" gabapentin AdvReac Mild cough Verified 10/01/20 01:44 ramipril AdvReac Mild cough Verified 10/01/20 01:44 Home Medications Medication Instructions Recorded Confirmed Type Cranberry Plus Vitamin C 1 cap PO QPM 07/01/19 09/30/20 History Gaviscon 1 tab PO UD PRN 07/01/19 09/30/20 History Premarin 0.625 mg VAGINAL 2XWK 07/01/19 09/30/20 History amlodipine 10 mg PO QAM 07/01/19 09/30/20 History carvedilol 12.5 mg PO BID 07/01/19 09/30/20 History cyanocobalamin (vitamin B-12) 2,500 mcg PO QPM 07/01/19 09/30/20 History docusate sodium [Stool Softener] 300 mg PO QPM 07/01/19 09/30/20 History hydralazine 25 mg PO TID 07/01/19 09/30/20 History hydrocodone-acetaminophen 1 tab PO BID 07/01/19 09/30/20 History losartan 50 mg PO BID 07/01/19 09/30/20 History nitroglycerin 0.4 mg SUBLINGUAL UD PRN 07/01/19 09/30/20 History omeprazole 20 mg PO QAM 07/01/19 09/30/20 History pravastatin 40 mg PO QAM 07/01/19 09/30/20 History spironolactone 25 mg PO QAM 07/01/19 09/30/20 History aspirin 81 mg chewable tablet 81 mg PO DAILY 09/01/20 09/30/20 History Patient History Medical History Aortic stenosis "moderately severe by echo September 2013" Chawla's esophagus Cardiac murmur Chronic back pain Chronic sialoadenitis CKD (chronic kidney disease) stage 3, GFR 30-59 ml/min Coronary artery disease "nonocclusive disease by cath [facility] [place]" Esophageal motility disorder "noted on barium swallow 10/2014" GERD (gastroesophageal reflux disease) History of esophageal dilatation Hyperlipidemia Hypertension Leaky heart valve per pt aorta--follows with Dr. Nivia Dickson Poor historian Surgical History History of appendectomy History of bilateral tubal ligation History of cardiac cath x3--last 12/2018 no stents History of carpal tunnel release of both wrists History of cholecystectomy History of colonoscopy History of esophagogastroduodenoscopy (EGD) History of hysterectomy History of lumbar spinal fusion History of lumpectomy cant remember which breast---benign fatty tissue History of sinus surgery History of tonsillectomy History of tooth extraction History of total left knee replacement (TKR) History of umbilical hernia repair Family History Other No family history of adverse response to anesthesia No family history of bleeding disorder Social History Smoking Status: Former smoker Second Hand Exposure: Yes (husand smoked); Hx Alcohol Use: No Hx Substance Use: No Preferred Language: Moldovan Communication Ability: Effective 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 Beliefs That Will Affect Care: None Current Living Situation: Spouse Other Information That Helps Us Care for You: No Feels Safe at Home: Yes Safety Concerns: Feels Safe At This Time Assistive Devices: Cane, Glasses and Walker Review of Systems Review of Systems: All systems reviewed & are unremarkable except as noted in HPI & below Physical Exam Constitutional: well developed and well nourished Mildly uncomfortable complaining of right foot pain Eyes: PERRL, conjunctivae normal, anicteric sclerae ENMT: external ear and nose normal, oropharynx normal Neck: trachea midline, no thyromegaly Respiratory: normal respiratory effort, lungs clear to auscultation Cardiovascular: Rate/Rhythm: regular rate, regular rhythm and + bradycardic Heart Sounds: + murmur (Harsh grade 3/6 systolic murmur, no diastolic murmur); + abnormal S2 (S2 diminished) Palpation: normal PMI Vessels: normal per ipheral pulses (Diminished pulses left foot); no JVD Extremities: + edema (12+ edema bilaterally) Gastrointestinal (Abdomen): normal bowel sounds, soft, nontender, no hepatosplenomegaly Musculoskeletal: Head/Neck/Chest: normocephalic and head atraumatic Extremities: + chronic stasis changes Entire right breading machine tender to touch Skin: no erythema Neurologic: PERRL, EOMI, accommodation nl, no face palsy, no dysarthria Results & Data ([facility]) Vital Signs (Past 12 Hours) Vital Signs Temp Pulse Pulse Resp BP BP BP 10/01/20 10:58 37.0 C 56 L 19 147/54 H 10/01/20 08:30 36.8 C 74 18 173/66 H 10/01/20 04:29 37.1 C 63 16 186/65 H 10/01/20 03:30 60 18 173/61 H 10/01/20 03:00 62 20 170/57 H 10/01/20 02:31 62 21 10/01/20 02:30 62 19 175/59 H 10/01/20 02:00 64 17 159/79 H 10/01/20 01:31 63 17 163/44 H 10/01/20 01:01 64 20 129/43 L Pulse Ox 10/01/20 10:58 95 10/01/20 08:30 95 10/01/20 04:29 96 10/01/20 03:30 92 10/01/20 03:00 93 10/01/20 02:31 10/01/20 02:30 10/01/20 02:00 93 10/01/20 01:31 93 10/01/20 01:01 93 Laboratory Results Laboratory Results - last 24 hr 09/30/20 09/30/20 09/30/20 22:32 22:32 22:32 WBC 9.44 RBC 3.75 L Hgb 11.0 L Hct 33.3 L MCV 88.8 MCH 29.3 MCHC 33.0 RDW Std Deviation 45.5 RDW Coeff of Breanne 13.9 Plt Count 224 MPV 10.5 H Immature Gran % (Auto) 0.3 Neut % (Auto) 69.4 Lymph % (Auto) 14.2 [place] % (Auto) 14.4 Eos % (Auto) 1.4 Baso % (Auto) 0.3 Neut # (Auto) 6.55 H Lymph # (Auto) 1.34 [place] # (Auto) 1.36 H Eos # (Auto) 0.13 Baso # (Auto) 0.03 Immature Gran # (Auto) 0.03 H PT 10.8 INR 1.1 APTT 25.9 PTT Ratio 1.0 Sodium 142 Potassium 3.4 L Chloride 109 H Carbon Dioxide 27 Anion Gap 6.0 BUN 20 H Creatinine 1.16 Est Cr Clr Drug Dosing 39.5 Est GFR ( Amer) 52.6 Est GFR (Non-Af Amer) 45.4 BUN/Creatinine Ratio 17.1 Glucose 110 H Lactate Calcium 9.3 Magnesium 1.7 L Total Bilirubin 0.8 AST 15 ALT 10 L Alkaline Phosphatase 87 Total Creatine Kinase 67 Troponin I 0.034 NT-Pro-B Natriuret Pep 4419 H Total Protein 7.1 Albumin 3.0 L Globulin 4.1 H Albumin/Globulin Ratio 0.7 L Procalcitonin Urine Color Urine Appearance Urine pH Ur Specific [place] Urine Protein Urine Glucose (UA) Urine Ketones Urine Blood Urine Nitrite Urine Bilirubin Urine Urobilinogen Ur Leukocyte Esterase Urine WBC (Auto) Urine RBC (Auto) U Hyaline Cast (Auto) U Epithel Cells (Auto) Urine Bacteria (Auto) COVID-19 Eval Order SARS-CoV-2 (PCR) Influenza Type A (PCR) Influenza Type B (PCR) RSV (RT-PCR) 09/30/20 10/01/20 10/01/20 22:32 00:42 01:05 WBC RBC Hgb Hct MCV MCH MCHC RDW Std Deviation RDW Coeff of Breanne Plt Count MPV Immature Gran % (Auto) Neut % (Auto) Lymph % (Auto) [place] % (Auto) Eos % (Auto) Baso % (Auto) Neut # (Auto) Lymph # (Auto) [place] # (Auto) Eos # (Auto) Baso # (Auto) Immature Gran # (Auto) PT INR APTT PTT Ratio Sodium Potassium Chloride Carbon Dioxide Anion Gap BUN Creatinine Est Cr Clr Drug Dosing Est GFR ( Amer) Est GFR (Non-Af Amer) BUN/Creatinine Ratio Glucose Lactate Calcium Magnesium Total Bilirubin AST ALT Alkaline Phosphatase Total Creatine Kinase 49 Troponin I 0.045 NT-Pro-B Natriuret Pep Total Protein Albumin Globulin Albumin/Globulin Ratio Procalcitonin < 0.05 Urine Color Yellow Urine Appearance Clear Urine pH 5.0 Ur Specific [place] 1.017 Urine Protein 3+ H Urine Glucose (UA) Negative Urine Ketones Negative Urine Blood Negative Urine Nitrite Negative Urine Bilirubin Negative Urine Urobilinogen Negative Ur Leukocyte Esterase Trace H Urine WBC (Auto) 10-30 H Urine RBC (Auto) 5-10 H U Hyaline Cast (Auto) 1-5 U Epithel Cells (Auto) >30 H Urine Bacteria (Auto) 4+ H COVID-19 Eval Order SARS-CoV-2 (PCR) Influenza Type A (PCR) Influenza Type B (PCR) RSV (RT-PCR) 10/01/20 10/01/20 10/01/20 01:55 01:55 02:06 WBC RBC Hgb Hct MCV MCH MCHC RDW Std Deviation RDW Coeff of Breanne Plt Count MPV Immature Gran % (Auto) Neut % (Auto) Lymph % (Auto) [place] % (Auto) Eos % (Auto) Baso % (Auto) Neut # (Auto) Lymph # (Auto) [place] # (Auto) Eos # (Auto) Baso # (Auto) Immature Gran # (Auto) PT INR APTT PTT Ratio Sodium Potassium Chloride Carbon Dioxide Anion Gap BUN Creatinine Est Cr Clr Drug Dosing Est GFR ( Amer) Est GFR (Non-Af Amer) BUN/Creatinine Ratio Glucose Lactate 0.7 Calcium Magnesium Total Bilirubin AST ALT Alkaline Phosphatase Total Creatine Kinase Troponin I NT-Pro-B Natriuret Pep Total Protein Albumin Globulin Albumin/Globulin Ratio Procalcitonin Urine Color Urine Appearance Urine pH Ur Specific [place] Urine Protein Urine Glucose (UA) Urine Ketones Urine Blood Urine Nitrite Urine Bilirubin Urine Urobilinogen Ur Leukocyte Esterase Urine WBC (Auto) Urine RBC (Auto) U Hyaline Cast (Auto) U Epithel Cells (Auto) Urine Bacteria (Auto) COVID-19 Eval Order CovFluRsv at [facility] SARS-CoV-2 (PCR) NEGATIVE Influenza Type A (PCR) Negative Influenza Type B (PCR) Negative RSV (RT-PCR) Negative 10/01/20 10/01/20 05:50 05:50 WBC 8.04 RBC 3.56 L Hgb 10.4 L Hct 31.7 L MCV 89.0 MCH 29.2 MCHC 32.8 RDW Std Deviation 45.5 RDW Coeff of Breanne 13.7 Plt Count 215 MPV 10.5 H Immature Gran % (Auto) 0.1 Neut % (Auto) 61.5 Lymph % (Auto) 20.8 [place] % (Auto) 15.5 Eos % (Auto) 1.7 Baso % (Auto) 0.4 Neut # (Auto) 4.94 Lymph # (Auto) 1.67 [place] # (Auto) 1.25 H Eos # (Auto) 0.14 Baso # (Auto) 0.03 Immature Gran # (Auto) 0.01 PT INR APTT PTT Ratio Sodium 142 Potassium 3.6 Chloride 108 H Carbon Dioxide 29 Anion Gap 5.0 BUN 18 Creatinine 1.17 Est Cr Clr Drug Dosing 39.2 Est GFR ( Amer) 52.1 Est GFR (Non-Af Amer) 44.9 BUN/Creatinine Ratio 15.7 Glucose 98 Lactate Calcium 8.5 Magnesium 1.8 Total Bilirubin AST ALT Alkaline Phosphatase Total Creatine Kinase Troponin I NT-Pro-B Natriuret Pep Total Protein Albumin Globulin Albumin/Globulin Ratio Procalcitonin Urine Color Urine Appearance Urine pH Ur Specific [place] Urine Protein Urine Glucose (UA) Urine Ketones Urine Blood Urine Nitrite Urine Bilirubin Urine Urobilinogen Ur Leukocyte Esterase Urine WBC (Auto) Urine RBC (Auto) U Hyaline Cast (Auto) U Epithel Cells (Auto) Urine Bacteria (Auto) COVID-19 Eval Order SARS-CoV-2 (PCR) Influenza Type A (PCR) Influenza Type B (PCR) RSV (RT-PCR)
--- NOTE | 2020-10-01 14:10 | Electrocardiogram Report ---
Test Reason : Blood Pressure : / mmHG Vent. Rate : 063 BPM Atrial Rate : 063 BPM P-R Int : 176 ms QRS Dur : 100 ms QT Int : 416 ms P-R-T Axes : 090 -16 048 degrees QTc Int : 425 ms Normal sinus rhythm Left ventricular hypertrophy with repolarization abnormality Cannot rule out Septal infarct , age undetermined Abnormal ECG When compared with ECG of 03-FEB-2016 21:47, Minimal criteria for Septal infarct are now Present Confirmed by Domingo Sam ([id number]) on 10/01/2020 2:10:07 PM Referred By: REFERRED SELF Confirmed By:Domingo Sam
--- NOTE | 2020-10-01 15:10 | Ultrasound Report ---
US arterial duplex LE BI CLINICAL HISTORY: Left foot pain. Peripheral vascular disease. COMPARISON STUDY: 2014 FINDINGS: Brachial arm systolic arterial pressures measured 178 On the right, there was biphasic flow throughout the lower extremity arteries without evidence of a m mHg on the right, and 186 mmHg on the left. Dorsalis pedis systolic pressures measured 133 mmHg in the right, and 66 mmHg on the left. Posterior tibial systolic arterial pressures measured 143 mmHg on the right, 92 mmHg on the left. Ankle brachial indices are 0.77 of the right and 0.49 of the left On the right there was biphasic flow within the common femoral superficial femoral popliteal anterior tibial posterior tibial and peroneal arteries. There is mild elevation velocity of the proximal righ t superficial femoral artery with a peak systolic velocity of 254 cm/s. This is felt to represent a m ild to moderate stenosis. There is moderate plaque. On the left, there is monophasic flow throughout the left lower extremity without evidence of a high velocity jet. The monophasic flow raises the possibility of a more proximal iliac artery stenosis. IMPRESSION: 1. Persistent diminished ankle-brachial indices currently measuring 0.77 of the right and 0.49 the le ft 2. Monophasic flow throughout the left lower extremity. The findings are highly suggestive of a more proximal iliac artery stenosis. CT angiography of the abdomen and pelvis could be obtained in follow- up as deemed clinically appropriate. 3. Mildly elevated velocity within the proximal right superficial femoral artery suggesting a mild to moderate stenosis. ACT 112: Negative or not required by law. Electronically signed by: Dean Huff M.D. 10/01/2020 3:09 PM
--- NOTE | 2020-10-01 15:30 | Hospitalist Progress Note ---
Date of Service October 01, 2020 Assessment & Plan (1) CHF (congestive heart failure): ? Right-sided CHF, mild fluid retention symptoms presenting as bilateral leg swelling -- Lasix 20mg po daily started Echo noted Right Foot Pain -- possible Cellulitis vs Gout -- foot xray: diffuse soft tissue edema -- procalcitonin negative uric acid: normal -- on Doxycycline PO trial of Prednisone 40mg po -- monitor closely hx COPD, pulmonary hypertension as per records -- not in exacerbation Uncontrolled hypertension possibly contributory rheumatic heart disease/VHD (severe , moderate AR, mild MR, mild TR on TTE 2018) PVD, stable carotid artery disease and stable PAD without classic claudication symptoms as per recent outpatient [facility] [place] follow-up visit (08/2020) chronic anemia, hemoglobin at baseline chronic sialoadenitis as per records, periodic antibiotic Rx [place] [facility] [facility] [place] Hyperglycemia rule out DM check a1c PT OT eval DVT prophylaxis. Lovenox subcu Full code Admission and Anticipated Discharge Date Admission Date: October 01, 2020 Subjective ff up for CHF, r foot pain seen resting in bed, not in distress reports severe right foot pain, worse with movement no fever/chills no chest pain, dyspnea, palpitations, abdominal pain, nausea/vomiting, no urinary or BM problems no other symptoms Review of Systems Review of Systems: All systems reviewed & are unremarkable except as noted in Subjective Physical Exam Physical Exam: General- oriented x 3, not in distress, speaks in sentences with no effort or accessory muscle use Head- atraumatic Eyes- PERRL, EOMI, anicteric ENT- oropharynx clear Neck- supple, no JVD, no adenopathy, no thyromegaly; carotids +2/2, no bruits appreciated Lungs- clear to auscultation bilaterally, no rales/wheezes Heart- normal rate, regular rhythm; no murmur, no gallop, no rub appreciated Abdomen- normal bowel sounds, nondistended, soft, nontender, no masses or hepatosplenomegaly Extremities- (+) mild lower leg edema R> L, right foot: significant tenderness, moderate warmth, no erythema no calf tenderness; peripheral pulses intact Neuro- alert, oriented x 3; CN 2-12 grossly intact; motor 5/5 bilaterally;sensation 100% on all extremities; no other gross focal neurologic deficits Skin- warm & dry Results & Data Results & Data ([facility]) Vital Signs (Past 12 Hours) Vital Signs Temp Pulse Resp BP BP Pulse Ox 10/01/20 10:58 37.0 C 56 L 19 147/54 H 95 10/01/20 08:30 36.8 C 74 18 173/66 H 95 10/01/20 04:29 37.1 C 63 16 186/65 H 96 Laboratory Results Laboratory Results - last 24 hr 09/30/20 09/30/20 09/30/20 22:32 22:32 22:32 WBC 9.44 RBC 3.75 L Hgb 11.0 L Hct 33.3 L MCV 88.8 MCH 29.3 MCHC 33.0 RDW Std Deviation 45.5 RDW Coeff of Breanne 13.9 Plt Count 224 MPV 10.5 H Immature Gran % (Auto) 0.3 Neut % (Auto) 69.4 Lymph % (Auto) 14.2 [place] % (Auto) 14.4 Eos % (Auto) 1.4 Baso % (Auto) 0.3 Neut # (Auto) 6.55 H Lymph # (Auto) 1.34 [place] # (Auto) 1.36 H Eos # (Auto) 0.13 Baso # (Auto) 0.03 Immature Gran # (Auto) 0.03 H PT 10.8 INR 1.1 APTT 25.9 PTT Ratio 1.0 Sodium 142 Potassium 3.4 L Chloride 109 H Carbon Dioxide 27 Anion Gap 6.0 BUN 20 H Creatinine 1.16 Est Cr Clr Drug Dosing 39.5 Est GFR ( Amer) 52.6 Est GFR (Non-Af Amer) 45.4 BUN/Creatinine Ratio 17.1 Glucose 110 H Lactate Uric Acid Calcium 9.3 Magnesium 1.7 L Total Bilirubin 0.8 AST 15 ALT 10 L Alkaline Phosphatase 87 Total Creatine Kinase 67 Troponin I 0.034 NT-Pro-B Natriuret Pep 4419 H Total Protein 7.1 Albumin 3.0 L Globulin 4.1 H Albumin/Globulin Ratio 0.7 L Procalcitonin Urine Color Urine Appearance Urine pH Ur Specific [place] Urine Protein Urine Glucose (UA) Urine Ketones Urine Blood Urine Nitrite Urine Bilirubin Urine Urobilinogen Ur Leukocyte Esterase Urine WBC (Auto) Urine RBC (Auto) U Hyaline Cast (Auto) U Epithel Cells (Auto) Urine Bacteria (Auto) COVID-19 Eval Order SARS-CoV-2 (PCR) Influenza Type A (PCR) Influenza Type B (PCR) RSV (RT-PCR) 09/30/20 10/01/20 10/01/20 22:32 00:42 01:05 WBC RBC Hgb Hct MCV MCH MCHC RDW Std Deviation RDW Coeff of Breanne Plt Count MPV Immature Gran % (Auto) Neut % (Auto) Lymph % (Auto) [place] % (Auto) Eos % (Auto) Baso % (Auto) Neut # (Auto) Lymph # (Auto) [place] # (Auto) Eos # (Auto) Baso # (Auto) Immature Gran # (Auto) PT INR APTT PTT Ratio Sodium Potassium Chloride Carbon Dioxide Anion Gap BUN Creatinine Est Cr Clr Drug Dosing Est GFR ( Amer) Est GFR (Non-Af Amer) BUN/Creatinine Ratio Glucose Lactate Uric Acid Calcium Magnesium Total Bilirubin AST ALT Alkaline Phosphatase Total Creatine Kinase 49 Troponin I 0.045 NT-Pro-B Natriuret Pep Total Protein Albumin Globulin Albumin/Globulin Ratio Procalcitonin < 0.05 Urine Color Yellow Urine Appearance Clear Urine pH 5.0 Ur Specific [place] 1.017 Urine Protein 3+ H Urine Glucose (UA) Negative Urine Ketones Negative Urine Blood Negative Urine Nitrite Negative Urine Bilirubin Negative Urine Urobilinogen Negative Ur Leukocyte Esterase Trace H Urine WBC (Auto) 10-30 H Urine RBC (Auto) 5-10 H U Hyaline Cast (Auto) 1-5 U Epithel Cells (Auto) >30 H Urine Bacteria (Auto) 4+ H COVID-19 Eval Order SARS-CoV-2 (PCR) Influenza Type A (PCR) Influenza Type B (PCR) RSV (RT-PCR) 10/01/20 10/01/20 10/01/20 01:55 01:55 02:06 WBC RBC Hgb Hct MCV MCH MCHC RDW Std Deviation RDW Coeff of Breanne Plt Count MPV Immature Gran % (Auto) Neut % (Auto) Lymph % (Auto) [place] % (Auto) Eos % (Auto) Baso % (Auto) Neut # (Auto) Lymph # (Auto) [place] # (Auto) Eos # (Auto) Baso # (Auto) Immature Gran # (Auto) PT INR APTT PTT Ratio Sodium Potassium Chloride Carbon Dioxide Anion Gap BUN Creatinine Est Cr Clr Drug Dosing Est GFR ( Amer) Est GFR (Non-Af Amer) BUN/Creatinine Ratio Glucose Lactate 0.7 Uric Acid Calcium Magnesium Total Bilirubin AST ALT Alkaline Phosphatase Total Creatine Kinase Troponin I NT-Pro-B Natriuret Pep Total Protein Albumin Globulin Albumin/Globulin Ratio Procalcitonin Urine Color Urine Appearance Urine pH Ur Specific [place] Urine Protein Urine Glucose (UA) Urine Ketones Urine Blood Urine Nitrite Urine Bilirubin Urine Urobilinogen Ur Leukocyte Esterase Urine WBC (Auto) Urine RBC (Auto) U Hyaline Cast (Auto) U Epithel Cells (Auto) Urine Bacteria (Auto) COVID-19 Eval Order CovFluRsv at [facility] SARS-CoV-2 (PCR) NEGATIVE Influenza Type A (PCR) Negative Influenza Type B (PCR) Negative RSV (RT-PCR) Negative 10/01/20 10/01/20 10/01/20 05:50 05:50 05:50 WBC 8.04 RBC 3.56 L Hgb 10.4 L Hct 31.7 L MCV 89.0 MCH 29.2 MCHC 32.8 RDW Std Deviation 45.5 RDW Coeff of Breanne 13.7 Plt Count 215 MPV 10.5 H Immature Gran % (Auto) 0.1 Neut % (Auto) 61.5 Lymph % (Auto) 20.8 [place] % (Auto) 15.5 Eos % (Auto) 1.7 Baso % (Auto) 0.4 Neut # (Auto) 4.94 Lymph # (Auto) 1.67 [place] # (Auto) 1.25 H Eos # (Auto) 0.14 Baso # (Auto) 0.03 Immature Gran # (Auto) 0.01 PT INR APTT PTT Ratio Sodium 142 Potassium 3.6 Chloride 108 H Carbon Dioxide 29 Anion Gap 5.0 BUN 18 Creatinine 1.17 Est Cr Clr Drug Dosing 39.2 Est GFR ( Amer) 52.1 Est GFR (Non-Af Amer) 44.9 BUN/Creatinine Ratio 15.7 Glucose 98 Lactate Uric Acid 7.0 Calcium 8.5 Magnesium 1.8 Total Bilirubin AST ALT Alkaline Phosphatase Total Creatine Kinase Troponin I NT-Pro-B Natriuret Pep Total Protein Albumin Globulin Albumin/Globulin Ratio Procalcitonin Urine Color Urine Appearance Urine pH Ur Specific [place] Urine Protein Urine Glucose (UA) Urine Ketones Urine Blood Urine Nitrite Urine Bilirubin Urine Urobilinogen Ur Leukocyte Esterase Urine WBC (Auto) Urine RBC (Auto) U Hyaline Cast (Auto) U Epithel Cells (Auto) Urine Bacteria (Auto) COVID-19 Eval Order SARS-CoV-2 (PCR) Influenza Type A (PCR) Influenza Type B (PCR) RSV (RT-PCR)
[2020-10-01] MEDS ORDERED: predniSONE 20 MG TAB PO STA (15:31)
[2020-10-01] MEDS: DOCUSATE SODIUM 100 MG CAP PO SCH (21:06)
[2020-10-01] MEDS: DOXYCYCLINE HYCLATE 100 MG CAP PO SCH (21:06)
[2020-10-01] MEDS: LOSARTAN POTASSIUM 50 MG TAB PO SCH (21:07)
[2020-10-01] MEDS: carvediloL 6.25 MG TAB PO SCH (21:07)
[2020-10-01] MEDS: HYDROcodone/ACETAMINOPHEN 10/325 TAB PO PRN (21:07)
[2020-10-02] MEDS: LOSARTAN POTASSIUM 50 MG TAB PO SCH ×2 (07:43→20:41)
[2020-10-02] MEDS: ASPIRIN 81 MG ECTAB PO SCH (07:44)
[2020-10-02] MEDS: DOXYCYCLINE HYCLATE 100 MG CAP PO SCH ×2 (07:44→20:41)
[2020-10-02] MEDS: carvediloL 6.25 MG TAB PO SCH ×2 (07:44→20:41)
[2020-10-02] MEDS: SPIRONOLACTONE 25 MG TAB PO SCH (07:44)
[2020-10-02] MEDS: PRAVASTATIN SOD 40 MG TAB PO SCH (07:44)
[2020-10-02] MEDS: PANTOprazole 40 MG TAB PO SCH (07:44)
[2020-10-02] MEDS: amLODIPine BESYLATE 5 MG TAB PO SCH (07:44)
[2020-10-02] MEDS: hydrALAZINE TAB 50 MG TAB PO SCH ×3 (07:45→20:41)
[2020-10-02] MEDS: ENOXAPARIN INJ 30 MG/0.3 ML SYR SQ SCH (07:45)
[2020-10-02] MEDS ORDERED: predniSONE 20 MG TAB PO STA (10:58)
--- NOTE | 2020-10-02 11:02 | Cardiology Progress Note ---
Date of Service October 02, 2020 Assessment & Plan (1) Right foot pain: Foot pain substantially improved with prednisone. 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 Continue increased dose of hydralazine, reduced dose carvedilol (2) Edema: (3) Hypertension: (4) Aortic stenosis: Admission and Anticipated Discharge Date Admission Date: October 01, 2020 Subjective Patient seen and examined, chart, medications, telemetry reviewed. Right foot pain improved substantially after single dose of prednisone. No chest pains, shortness of breath, tachypalpitations. Physical Exam Constitutional: well developed and well nourished Eyes: PERRL, conjunctivae normal, anicteric sclerae ENMT: external ear and nose normal, oropharynx normal Neck: trachea midline, no thyromegaly Respiratory: normal respiratory effort, lungs clear to auscultation Cardiovascular: Rate/Rhythm: regular rate, regular rhythm and + bradycardic Heart Sounds: + murmur (Harsh grade 3/6 systolic murmur, no diastolic murmur); + abnormal S2 (S2 diminished) Palpation: normal PMI Vessels: no JVD Extremities: + edema (1+ edema, improved) Gastrointestinal (Abdomen): normal bowel sounds, soft, nontender, no hepatos plenomegaly Musculoskeletal: Head/Neck/Chest: normocephalic and head atraumatic Extremities: + chronic stasis changes Skin: no erythema Neurologic: PERRL, EOMI, accommodation nl, no face palsy, no dysarthria Results & Data ([facility]) Vital Signs (Past 12 Hours) Vital Signs Temp Pulse Pulse Resp BP Pulse Ox 10/02/20 08:16 57 L 10/02/20 07:40 36.6 C 69 18 156/54 H 94 10/02/20 03:40 36.8 C 58 L 18 152/56 H 90 10/01/20 23:50 36.7 C 64 18 157/65 H 91
--- NOTE | 2020-10-02 18:27 | Hospitalist Progress Note ---
Date of Service October 02, 2020 Assessment & Plan (1) CHF (congestive heart failure): ? Right-sided CHF, mild fluid retention symptoms presenting as bilateral leg swelling -- Lasix 20mg po daily started Echo noted -- lower leg edema much better on Lasix 20mg po 3x week Right Foot Pain -- possible Cellulitis vs Gout -- foot xray: diffuse soft tissue edema -- procalcitonin negative uric acid: normal -- improving -- on Doxycycline PO Day 2 Prednisone 40mg po Day 2 then taper x 7 days -- monitor closely -- PT/OT eval hx COPD, pulmonary hypertension as per records -- not in exacerbation Uncontrolled hypertension possibly contributory -- continue Amlodipine, Hydralazine Carvedilol rheumatic heart disease/VHD (severe , moderate AR, mild MR, mild TR on TTE 2018) PVD, stable carotid artery disease and stable PAD without classic claudication symptoms as per recent outpatient [facility] vascular surgery follow-up visit (08/2020) chronic anemia, hemoglobin at baseline chronic sialoadenitis as per records, periodic antibiotic Rx prescribed by [facility] [place] [facility] specialist Hyperglycemia rule out DM check a1c PT OT eval DVT prophylaxis. Lovenox subcu Full code Disposition pending Admission and Anticipated Discharge Date Admission Date: October 01, 2020 Subjective ff up for right foot pain likely gout, chf seen resting in bedside chair, comfortable states she feels better today foot pain better, 5/10 today able to move feet/legs better no dyspnea, chest pain, palpitations no fever/chills no other symptoms Review of Systems Review of Systems: All systems reviewed & are unremarkable except as noted in Subjective Physical Exam Physical Exam: General- oriented x 2, not in distress, speaks in sentences with no effort or accessory muscle use Eyes- anicteric Neck- no JVD Lungs- clear breath sounds bilaterally Heart- normal rate, regular rhythm; no murmurs Abdomen- normal bowel sounds, nondistended, soft, nontender Extremities- no pretibial edema, no calf tenderness right foot: less edema, less tenderness, better ROM, no erythema, less warmth right lower leg: minimal edema LLE: essentially normal Neuro- alert, oriented x 3; no gross focal neurologic deficits Skin- warm & dry Results & Data Results & Data ([facility]) Vital Signs (Past 12 Hours) Vital Signs Temp Pulse Pulse Resp BP BP Pulse Ox 10/02/20 15:15 37.3 C 66 18 159/59 H 94 10/02/20 11:47 36.6 C 58 L 17 136/48 L 97 10/02/20 08:16 57 L 10/02/20 07:40 36.6 C 69 18 156/54 H 94 all noted and reviewed including below
[2020-10-02] MEDS: DOCUSATE SODIUM 100 MG CAP PO SCH (20:41)
[2020-10-03] MEDS: HYDROcodone/ACETAMINOPHEN 10/325 TAB PO PRN (00:59)
[2020-10-03 08:49] LABS: BUN Creatinine Ratio 25.9 (10-20); Creatinine Clr Calc Pharmacy 26.4 ml/min; Est GFR (Non-African American) 27.6; Magnesium 1.7 mg/dl (1.8-2.4); Potassium 3.9 mmol/L (3.5-5.1)
[2020-10-03] MEDS: ASPIRIN 81 MG ECTAB PO SCH (09:29)
[2020-10-03] MEDS: SPIRONOLACTONE 25 MG TAB PO SCH (09:29)
[2020-10-03] MEDS: hydrALAZINE TAB 50 MG TAB PO SCH ×3 (09:29→20:29)
[2020-10-03] MEDS: carvediloL 6.25 MG TAB PO SCH ×2 (09:29→20:29)
[2020-10-03] MEDS: amLODIPine BESYLATE 5 MG TAB PO SCH (09:29)
[2020-10-03] MEDS: PANTOprazole 40 MG TAB PO SCH (09:29)
[2020-10-03] MEDS: PRAVASTATIN SOD 40 MG TAB PO SCH (09:29)
[2020-10-03] MEDS: DOXYCYCLINE HYCLATE 100 MG CAP PO SCH ×2 (09:29→20:29)
[2020-10-03] MEDS: LOSARTAN POTASSIUM 50 MG TAB PO SCH (09:29)
[2020-10-03] MEDS: ENOXAPARIN INJ 30 MG/0.3 ML SYR SQ SCH (09:33)
[2020-10-03] MEDS ORDERED: predniSONE 10 MG TABLET PO STA (10:27)
--- NOTE | 2020-10-03 12:45 | Cardiology Progress Note ---
Date of Service October 03, 2020 Assessment & Plan (1) Right foot pain: Foot pain substantially improved with prednisone. Edema improved findings all suspicious for gout exacerbation Valvular disease and chronic peripheral vascular disease stable Would continue medications changes made this admission including increased hydralazine, decreased carvedilol Patient has scheduled appointment with cardiology routinely on 10/28/2020 (2) Edema: (3) Hypertension: (4) Aortic stenosis: Admission and Anticipated Discharge Date Admission Date: October 01, 2020 Subjective Patient seen and examined, chart, medications, telemetry reviewed. Right foot pain improved substantially, nearly resolved. Edema improved. Patient now able to ambulate No chest pains, shortness of breath, tachypalpitations. Physical Exam Constitutional: well developed and well nourished Eyes: PERRL, conjunctivae normal, anicteric sclerae ENMT: external ear and nose normal, oropharynx normal Neck: trachea midline, no thyromegaly Respiratory: normal respiratory effort, lungs clear to auscultation Cardiovascular: Rate/Rhythm: regular rate, regular rhythm and + bradycardic Heart Sounds: + murmur (Harsh grade 3/6 systolic murmur, no diastolic murmur); + abnormal S2 (S2 diminished) Palpation: normal PMI Vessels: no JVD Extremities: + edema (1+ edema, improved) Gastrointestinal (Abdomen): normal bowel sounds, soft, nontender, no hepatosplenomegaly Musculoskeletal: Head/Neck/Chest: normocephalic and head atraumatic Extremities: + chronic stasis changes Skin: no erythema Neurologic: PERRL, EOMI, accommodation nl, no face palsy, no dysarthria Results & Data ([facility]) Vital Signs (Past 12 Hours) Vital Signs Temp Pulse Pulse Resp BP BP Pulse Ox 10/03/20 12:32 36.7 C 56 L 18 154/57 H 96 10/03/20 10:15 58 L 10/03/20 07:44 36.8 C 65 18 166/58 H 97 10/03/20 03:45 37.1 C 61 16 148/60 H 94
--- NOTE | 2020-10-03 12:50 | Hospitalist Progress Note ---
Date of Service October 03, 2020 Assessment & Plan (1) CHF (congestive heart failure): Right-sided CHF, mild fluid retention symptoms presenting as bilateral leg swelling -- Lasix 20mg po daily started Echo noted -- lower leg edema much better on Lasix 20mg po 3x week Crea increased from 1.1 to 1.7 HOLD Lasix, Losartan monitor volume status, repeat BMP tomorrow Right Foot Pain -- possible Cellulitis vs Gout -- foot xray: diffuse soft tissue edema -- procalcitonin negative uric acid: normal -- improved markedly -- given Doxycycline PO Day 3--> continue for 4 more days Prednisone 40, 40,30mg daily given, continue taper 20, 20, 10, 10, then stop hx COPD, pulmonary hypertension as per records -- not in exacerbation Uncontrolled hypertension possibly contributory -- Hydralazine increased to 50mg TID Carvedilol decreased to 6.25mg BID due to bradycardia continue Amlodipine -- monitor as outpatient Rheumatic heart disease/VHD (severe , moderate AR, mild MR, mild TR on TTE 2018) PVD, stable carotid artery disease and stable PAD without classic claudication symptoms as per recent [place] [facility] [place] (08/2020) chronic anemia, hemoglobin at baseline chronic sialoadenitis as per records, periodic antibiotic Rx prescribed by [facility] ENT specialist Hyperglycemia rule out DM check a1c PT /OT eval: pending DVT prophylaxis. Lovenox subcu Full code Disposition pending anticipate d/c home tomorrow when crea improves Admission and Anticipated Discharge Date Admission Date: October 01, 2020 Subjective ff up for CHF, LE pain/swelling seen resting in chair, comfortable in good spirits states lower ext feels "great" denies chest pain, dyspnea, dizziness no fever/chills LE pain is much better, can ambulate better states she is ready and would like to be discharged today no other symptoms Review of Systems Review of Systems: All systems reviewed & are unremarkable except as noted in Subjective Physical Exam Physical Exam: General- oriented x 2, not in distress, speaks in sentences with no effort or accessory muscle use Eyes- anicteric Neck- no JVD Lungs- clear BS BL no rales/wheezes Heart- normal rate, regular rhythm; no murmurs Abdomen- normal bowel sounds, nondistended, soft, nontender Extremities- no pretibial edema, no calf tenderness R lower leg: no edema foot: minimal edema, warmth, tenderness, good ROM L lower leg: essentially Neuro- alert, oriented x 2; no gross focal neurologic deficits Skin- warm & dry Results & Data Results & Data ([facility]) Vital Signs (Past 12 Hours) Vital Signs Temp Pulse Pulse Resp BP BP Pulse Ox 10/03/20 12:32 36.7 C 56 L 18 154/57 H 96 10/03/20 10:15 58 L 10/03/20 07:44 36.8 C 65 18 166/58 H 97 10/03/20 03:45 37.1 C 61 16 148/60 H 94 all noted and reviewed including below Laboratory Results Laboratory Results - last 24 hr 10/03/20 08:20 Sodium 139 Potassium 3.9 Chloride 106 Carbon Dioxide 26 Anion Gap 7.0 BUN 45 H Creatinine 1.75 H Est Cr Clr Drug Dosing 26.4 Est GFR ( Amer) 32.0 Est GFR (Non-Af Amer) 27.6 BUN/Creatinine Ratio 25.9 H Glucose 133 H Calcium 9.0 Magnesium 1.7 L
[2020-10-03] MEDS: DOCUSATE SODIUM 100 MG CAP PO SCH (20:29)
[2020-10-04] MEDS: HYDROcodone/ACETAMINOPHEN 10/325 TAB PO PRN (02:37)
[2020-10-04] MEDS ORDERED: amLODIPine BESYLATE 5 MG TAB PO SCH (03:15)
[2020-10-04] MEDS: hydrALAZINE HCL 25 MG TAB PO SCH ×3 (03:28→13:58)
[2020-10-04 06:56] LABS: Estimated Average Glucose 108 mg/dl; Hemoglobin A1C 5.4 % (4.5-5.6)
[2020-10-04] MEDS: PRAVASTATIN SOD 40 MG TAB PO SCH (08:49)
[2020-10-04] MEDS: PANTOprazole 40 MG TAB PO SCH (08:49)
[2020-10-04] MEDS: ASPIRIN 81 MG ECTAB PO SCH (08:49)
[2020-10-04] MEDS: carvediloL 6.25 MG TAB PO SCH (08:49)
[2020-10-04] MEDS: DOXYCYCLINE HYCLATE 100 MG CAP PO SCH (08:49)
[2020-10-04] MEDS: ENOXAPARIN INJ 30 MG/0.3 ML SYR SQ SCH (08:50)
[2020-10-04 08:57] LABS: BUN Creatinine Ratio 28.4 (10-20); Calcium 8.7 mg/dl (8.5-10.1); Creatinine Clr Calc Pharmacy 32.3 ml/min; Est GFR (African American) 40.8; Est GFR (Non-African American) 35.2; Potassium 3.7 mmol/L (3.5-5.1)
[2020-10-04] MEDS ORDERED: FUROSEMIDE 20 MG TAB PO SCH (09:00)
[2020-10-04] MEDS ORDERED: predniSONE 20 MG TAB PO SCH (09:00)
[2020-10-04] MEDS ORDERED: LOSARTAN POTASSIUM 50 MG TAB PO SCH ×2 (12:00→21:00)
[2020-10-04] MEDS ORDERED: SPIRONOLACTONE 25 MG TAB PO ONE (15:12)
[2020-10-04] MEDS ORDERED: hydrALAZINE HCL 20 MG/ML VIAL IV STA (15:13)
--- NOTE | 2020-10-04 17:02 | Hospitalist Progress Note ---
Date of Service October 04, 2020 Assessment & Plan (1) CHF (congestive heart failure): Right-sided CHF, mild fluid retention symptoms presenting as bilateral leg swelling -- [facility]. Schwartz consulted -- Lasix 20mg po daily started Echo noted -- lower leg edema much better recommend: Lasix 20mg po 3x week Crea increased from 1.1 to 1.7 HELD Lasix, Losartan crea improved to 1.4 (baseline 1.2-1.3) -- discharge on: usual Spironolactone daily add Lasix 20mg repeat Crea on ff up with PCP 10/06/20, then monitor closely while on lasix + aldactone Right Foot Pain -- possible Cellulitis vs Gout -- foot xray: diffuse soft tissue edema -- procalcitonin negative uric acid: normal -- improved markedly -- given Doxycycline PO Day 4--> continue for 3 more days Prednisone 40, 40,30, 20, mg daily given, pain completely resolved discharge on Prednisone 10mg po one dose then stop hx COPD, pulmonary hypertension as per records -- not in exacerbation Uncontrolled hypertension possibly contributory -- Hydralazine increased to 75mg TID Carvedilol decreased to 6.25mg BID due to bradycardia continue Amlodipine -- monitor as outpatient Rheumatic heart disease/VHD (severe , moderate AR, mild MR, mild TR on TTE 2018) PVD, stable carotid artery disease and stable PAD without classic claudication symptoms as per recent [place] [facility] [place] (08/2020) chronic anemia, hemoglobin at baseline chronic sialoadenitis as per records, periodic antibiotic Rx prescribed by [facility] Disposition d/c home ff up with PCP 10/06 ff up with [facility] as scheduled Admission and Anticipated Discharge Date Admission Date: October 01, 2020 Subjective ff up for CHF, gout seen resting in chair, comfortable not in distress states leg, and foot pain has resolved no chest pain, dyspnea, headache, dizziness, palpitations, abdominal pain, nausea/vomiting BP systolic 180, asymptomatic given Spironolactone, Hydralazine IV BP re-checked around 430 160/53 no symptoms states she is ready and would like to be discharged today Review of Systems Review of Systems: All systems reviewed & are unremarkable except as noted in Subjective Physical Exam Physical Exam: General- oriented x 3, not in distress, speaks in sentences with no effort or accessory muscle use Eyes- anicteric Neck- no JVD Lungs- clear breath sounds bilaterally, no rales/wheezes Heart- normal rate, regular rhythm; no murmurs Abdomen- normal bowel sounds, nondistended, soft, nontender Extremities- minimal lower leg edema, no erythema/warmth/tenderness, full ROM, no calf tenderness Neuro- alert, oriented x 3; no gross focal neurologic deficits Skin- warm & dry Results & Data Results & Data ([facility]) Vital Signs (Past 12 Hours) Vital Signs Temp Pulse Resp BP Pulse Ox 10/04/20 15:33 36.5 C 69 19 181/59 H 97 10/04/20 11:40 36.9 C 86 19 171/65 H 96 10/04/20 07:56 36.8 C 59 L 19 167/69 H 93 all noted and reviewed including below Laboratory Results Laboratory Results - last 24 hr 10/03/20 10/04/20 08:21 07:28 Sodium 138 Potassium 3.7 Chloride 105 Carbon Dioxide 22 Anion Gap 11.0 BUN 41 H Creatinine 1.43 H D Est Cr Clr Drug Dosing 32.3 Est GFR ( Amer) 40.8 Est GFR (Non-Af Amer) 35.2 BUN/Creatinine Ratio 28.4 H Glucose 89 Estimat Average Glucose 108 Hemoglobin A1c 5.4 Calcium 8.7
--- NOTE | 2020-10-04 17:25 | Discharge Summary ---
Date of Service October 04, 2020 Admission HPI Per Admitting Provider History obtained from patient, family, and records. Medical history significant for Medical history significant for hypertension, nonocclusive CAD, PVD, rheumatic heart disease as per records, VHD (severe , moderate AR, mild MR, mild TR on TTE 2018), COPD, pulmonary hypertension as per records, chronic anemia (baseline hemoglobin 11), chronic pain as per records, chronic sialoadenitis as per records, past tobacco abuse. Last confinement March 2016 for intractable neck pain secondary to muscle spasm. 2 days ago, patient noted bilateral leg swelling right greater than the left with some abdominal distention without unusual chest pain or S OB symptoms. Everything feels tight as per patient. Admits to salty food intake. Denies OTC NSAID intake. Patient later on noted bilateral leg pain with achy right foot pain worse on attempted ambulation. No unusual back pain, no recollection of recent trauma. Patient does not regularly check weight and BP at home. At the ER, patient given Lasix for possible CHF. Temperature elevation noted at the ER which according to patient is normal for her. MEDICAL HISTORY: As above. 08/11/2020 ABIs : RLE mild arterial occlusive disease, LLE moderate arterial occlusive disease SURGERIES: Carpal tunnel, hernia repair, cholecystectomy, back surgery, knee replacement, appendectomy, hysterectomy. FAMILY HISTORY: Hypertension, dementia, diabetes, heart disease and hypertension. PERSONAL AND SOCIAL HISTORY: Past tobacco abuse. No chronic intake of alcoholic beverages. Retired [employer] employee Admission Exam Per Admitting Provider GENERAL: uncomfortable, anxious, no respiratory distress SKIN: Pallor , warm HEENT: Pale palpebral conjunctivae, no ptosis, dry buccal mucosa NECK : Supple, no tenderness CHEST : Decreased breath sounds, no tenderness HEART : RRR, systolic murmur loudest on the left sternal border, obliterated S1- S2 ABDOMEN: Some distention, nontender EXTREMITIES : Bilateral LE swelling R>L, warm RLE compared to LLE, minimal RLE, right foot tenderness NEUROLOGIC : Coherent, no facial asymmetry, no other gross focality Principal Diagnosis ACUTE CONGESTIVE HEART FAILURE EXACERBATION GOUT - RIGHT FOOT Discharge Exam General- oriented x 3, not in distress, speaks in sentences with no effort or accessory muscle use Eyes- anicteric Neck- no JVD Lungs- clear breath sounds bilaterally, no rales/wheezes Heart- normal rate, regular rhythm; no murmurs Abdomen- normal bowel sounds, nondistended, soft, nontender Extremities- minimal lower leg edema, no erythema/warmth/tenderness, full ROM, no calf tenderness Neuro- alert, oriented x 3; no gross focal neurologic deficits Skin- warm & dry Discharge Data Allergies Allergy/AdvReac Type Severity Reaction Status Date / Time oxycodone AdvReac Intermediate "makes me Verified 10/01/20 01:44 go crazy" gabapentin AdvReac Mild cough Verified 10/01/20 01:44 ramipril AdvReac Mild cough Verified 10/01/20 01:44 Consultations 10/01/20 01:05 ED Decision to Admit Stat 10/01/20 04:28 Consult Cardiology Routine Consult Case Management - Discharge Planning Routine Ordered Studies 09/30/20 21:55 US venous doppler LE Urgent No DVT within the right or left lower extremity. 10/01/20 02:25 US abdomen ltd ascites Urgent No ascites. 10/01/20 14:00 US arterial duplex LE Routine IMPRESSION: 1. Persistent diminished ankle-brachial indices currently measuring 0.77 of the right and 0.49 the left 2. Monophasic flow throughout the left lower extremity. The findings are highly suggestive of a more proximal iliac artery stenosis. CT angiography of the abdomen and pelvis could be obtained in follow-up as deemed clinically appropriate. 3. Mildly elevated velocity within the proximal right superficial femoral artery suggesting a mild to moderate stenosis. Hospital Course (1) CHF (congestive heart failure): Right-sided CHF, mild fluid retention symptoms presenting as bilateral leg swelling Rheumatic heart disease/VHD (severe , moderate AR, mild MR, mild TR on TTE 2018) -- Clinic Lead Dr. Schwartz consulted -- Lasix 20mg po daily started Echo noted -- lower leg edema much better recommend: Lasix 20mg po 3x week Crea increased from 1.1 to 1.7 HELD Lasix, Losartan crea improved to 1.4 (baseline 1.2-1.3) -- discharge on: usual Spironolactone daily add Lasix 20mg repeat Crea on ff up with PCP 10/06/20, then monitor closely while on lasix + aldactone Right Foot Pain -- possible Cellulitis vs Gout -- foot xray: diffuse soft tissue edema, no fractures -- procalcitonin negative uric acid: normal -- improved markedly with Prednisone -- Prednisone 40, 40,30, 20, mg daily given, pain completely resolved discharge on Prednisone 10mg po one dose then stop -- given Doxycycline PO Day 4 for possible component of cellulitis--> continue for 3 more days Uncontrolled hypertension -- Hydralazine increased to 75mg TID Carvedilol decreased to 6.25mg BID due to bradycardia continue Amlodipine -- monitor as outpatient PVD, stable carotid artery disease and stable PAD without classic claudication symptoms as per recent outpatient [facility] [place] vascular surgery follow-up visit (08/2020) Abnormal Arterial Doppler Studies of Lower extremities -- ordered for leg edema and pain -- 1. Persistent diminished ankle-brachial indices currently measuring 0.77 of the right and 0.49 the left 2. Monophasic flow throughout the left lower extremity. The findings are highly suggestive of a more proximal iliac artery stenosis. CT angiography of the abdomen and pelvis could be obtained in follow-up as deemed clinically appropriate. 3. Mildly elevated velocity within the proximal right superficial femoral artery suggesting a mild to moderate stenosis. Further work up, management, and ff up as outpatient COPD, pulmonary hypertension as per records -- not in exacerbation Chronic anemia, hemoglobin at baseline Chronic sialoadenitis as per records, periodic antibiotic Rx prescribed by [facility] ENT specialist Disposition d/c home ff up with PCP 10/06 ff up with Clinic Lead as scheduled plan of care discussed with patient in detail and at length all questions answered she is understanding, agreeable, comfortable with the plan of care Total Time Total Time Spent Total Time Spent (In Minutes): 60 minutes Discharge Plan Discharge Items Patient Disposition: Home - Self-Care Reason For Visit: CHF Discharge Diagnosis: LOWER LEG AND FEET SWELLING SECONDARY TO ACUTE CONGESTIVE HEART FAILURE, AND ACUTE GOUT- RIGHT FOOT Condition on Discharge: Good Activity: As commented below Activity Comment: INCREASE ACTIVITY GRADUALLY TOLERATED Lifting: Wait until after follow-up appointment Exercise/Sports: Wait until after follow-up appointment Driving/Machine Use: NO DRIVING UNTIL RE-EVALUATED AND ALLOWED BY PRIMARY CARE PHYSICIAN Non-emergency contact: Primary Care Provider Call non-emergency contact if: you have any medication questions, your symptoms worsen, your pain is not controlled, your pain is worsening, your pain is unusual for you, your pain is concerning for you, you have a fever and your rectal temperature is above 100.4 Follow-up/Referrals: Chris Schwartz MD [Physician] - Jazzy Appiah DO [Primary Care Provider] - (Date & Time 10/06/2020 3:00 PM Provider Cosmo Morrow MD Department Internal [facility] ) Diet: Heart Healthy Diet Comment: REFER TO BELOW Addtl Attending Provider Instructions: PLEASE REVIEW YOUR NEW MEDICATION LIST AND FOLLOW INSTRUCTIONS CAREFULLY. YOUR NEW MEDICATIONS ARE: PREDNISONE- steroid for gout DOXYCYCLINE- antibiotic for possible foot infection LASIX- water pill for leg swelling from Congestive Heart Failure increase HYDRALAZINE to 75 mg 3x a day DO NOT USE MEDICATIONS UNDER THE CLASS OF NSAIDS: IBUPROFEN, NAPROXEN, ETC. THESE CAN HARM YOUR KIDNEYS. ALWAYS TALK TO YOUR DOCTOR FIRST PRIOR TO STARTING ANY NEW MEDICATION. CALL YOUR DOCTOR IMMEDIATELY IF YOU ARE HAVING VOMITING, DIARRHEA. FOLLOW UP WITH YOUR PRIMARY CARE PHYSICIAN 2 DAYS FROM NOW OUTLINED ABOVE. FOLLOW UP WITH YOUR SPEED BELT SANDER TENDER SCHEDULED. CALL YOUR PRIMARY CARE PHYSICIAN OR RETURN TO THE ER IMMEDIATELY IF WITH WORSENING OF SYMPTOMS. Call your Primary Care doctor if any of the following symptoms or problems start or get worse: Shortness of breath or difficulty breathing Wake up at night short of breath Chest pain Cough Swelling of your hands, feet, or legs More fatigued or tired with your normal activity Palpitations - sudden fast heart beats WEIGHT Weigh yourself every morning after using the bathroom. Use the same scale. Wear the same amount of clothing. Write your weight down on a chart. Call your Primary Care doctor if you gain more than 2-3 pounds in 1-2 days. MEDICATIONS Use this discharge instruction sheet for medication instructions. Take your medications at the time your doctor ordered. Do not skip a dose of your medicines. If you miss a dose of medicine, take it as soon as possible, but DO NOT DOUBLE A DOSE. Read your medicine information when you get home. Know all of the side effects of your medicine. If in doubt, ask your pharmacist Call your Primary Care doctor's office if you have any side effects. Be sure all of your doctors know what medicine and herbs you take (including cold, flu, and herbal medicine). Take the following with you to your follow-up doctor appointments: Weight Chart Medication List List of questions Do not drink excessive alcohol, beer or wine. Who to Call and When: Call 911 or go to the Emergency Room if: If at any time you feel your situation is an emergency You have tightness or pain in your chest that does not go away with rest or Nitroglycerin You are very short of breath even with rest Diet details The general principles of a gout diet follow typical healthy-diet recommendations: Weight loss. Being overweight increases the risk of developing gout, and losing weight lowers the risk of gout. Research suggests that reducing the number of calories and losing weight even without a purine-restricted diet lower uric acid levels and reduce the number of gout attacks. Losing weight also lessens the overall stress on joints. Complex carbs. Eat more fruits, vegetables and whole grains, which provide complex carbohydrates. Avoid foods and beverages with high-fructose corn syrup, and limit consumption of naturally sweet fruit juices. Water. Stay well-hydrated by drinking water. Fats. Cut back on saturated fats from red meat, fatty poultry and high-fat dairy products. Proteins. Focus on lean meat and poultry, low-fat dairy and lentils as sources of protein. Recommendations for specific foods or supplements include: Organ and glandular meats. Avoid meats such as liver, kidney and sweetbreads, which have high purine levels and contribute to high blood levels of uric acid. Red meat. Limit serving sizes of beef, corona and pork. Seafood. Some types of seafood such as anchovies, shellfish, sardines and tuna are higher in purines than are other types. But the overall health benefits of eating fish may outweigh the risks for people with gout. Moderate portions of fish can be part of a gout diet. High-purine vegetables. Studies have shown that vegetables high in purines, such as asparagus and spinach, don't increase the risk of gout or recurring gout attacks. Alcohol. Beer and distilled liquors are associated with an increased risk of gout and recurring attacks. Moderate consumption of wine doesn't appear to increase the risk of gout attacks. Avoid alcohol during gout attacks, and limit alcohol, especially beer, between attacks. Sugary foods and beverages. Limit or avoid sugar-sweetened foods such as sweetened cereals, bakery goods and candies. Limit consumption of naturally sweet fruit juices. Vitamin C. Vitamin C may help lower uric acid levels. Talk to your doctor about whether a 500-milligram vitamin C supplement fits into your diet and medication plan. Coffee. Some research suggests that drinking coffee in moderation, especially regular caffeinated coffee, may be associated with a reduced risk of gout. Drinking coffee may not be appropriate if you have other medical conditions. Talk to your doctor about how much coffee is right for you. Cherries. There is some evidence that eating cherries is associated with a re duced risk of gout attacks. Pending Studies at Discharge: Yes Studies:: REPEAT BASIC METABOLIC PROFILE ON FOLLOW UP VISIT WITH YOUR DOCTOR ON Sunday10/06/20 Stand-Alone Forms: [facility], Sm[facility] Cess[facility] Medications and DC Order Prescriptions: New doxycycline hyclate 100 mg Capsule 100 mg PO BID Qty: 6 RF: 0 carvedilol 6.25 mg Tablet 6.25 mg PO BID Qty: 60 RF: 2 hydralazine 25 mg Tablet 75 mg PO TID Qty: 270 RF: 1 prednisone 10 mg tablet 10 mg PO DAILY Qty: 1 RF: 0 Continued aspirin 81 mg tablet,chewable 81 mg PO DAILY RF: 0 losartan 50 mg Tablet 50 mg PO BID RF: 0 pravastatin 40 mg Tablet 40 mg PO QAM RF: 0 Cranberry Plus Vitamin C 140-100 mg Capsule 1 cap PO QPM RF: 0 hydrocodone-acetaminophen 10-325 mg Tablet 1 tab PO BID RF: 0 spironolactone 25 mg Tablet 25 mg PO QAM RF: 0 amlodipine 10 mg Tablet 10 mg PO QAM RF: 0 Premarin 0.625 mg/gram Cream 0.625 mg VAGINAL 2XWK RF: 0 nitroglycerin 0.4 mg Tablet, Sublingual 0.4 mg sublingual UD PRN (Reason: Angina) RF: 0 omeprazole 20 mg Capsule,Delayed Release(Dr/Ec) 20 mg PO QAM RF: 0 docusate sodium [Stool Softener] 100 mg Tablet 300 mg PO QPM RF: 0 Gaviscon 80-14.2 mg Tablet,Chewable 1 tab PO UD PRN (Reason: Abdominal Discomfort) RF: 0 cyanocobalamin (vitamin B-12) 2,500 mcg Tablet 2,500 mcg PO QPM RF: 0 Discontinued carvedilol 12.5 mg Tablet 12.5 mg PO BID RF: 0 hydralazine 25 mg Tablet 25 mg PO TID RF: 0 Discharge Orders: Discharge Order (Routine); Ordered 10/04/20 Ordered By: Ander Lama Admission Data Admit Date/Time: 10/01/20 03:02 Attending Provider: Ander Lama Admit Provider: Gilmar Mauro Primary Care Provider: Jazzy Appiah Other Providers: Gilmar Mauro ; Gilmar Hathaway ; Cameron Sanabria ; Chris Schwartz ; Steven Morales ; NiviaOlu aquino ; Francesco Kirkpatrick ; Donna Silverio ; Gaby Gifford ; Aleks Bowers
== END 2020-10-04 17:40 | disposition home or self-care (01) | DRG 292 ==
LOC: ED 21:21 → 2S 10-01 03:02

== ENCOUNTER 2022-03-22 16:59 | Inpatient (IN) ==
[2022-03-22] MEDS ORDERED: ACETAMINOPHEN 1,000 MG/100 ML VIAL IV STA (18:10)
--- NOTE | 2022-03-22 18:14 | Emergency Department Note ---
History of Present Illness General Chief complaint: Headache Stated complaint: MUSCLE ACHES, TROUBLE SWALLOWING, HEADACHE Time Seen by Provider: 03/22/22 18:02 Source: patient Mode of arrival: wheelchair Limitations: no limitations History of Present Illness Provider complaint: Ache, body aches, chest pain Onset (ago): hour(s) Maximum Pain Intensity: 10 This is a 77-year-old female presents emergency department with multiple complaints. Patient states middle the night she woke with a headache and generalized body aches. She states she took cough and cold medication. Did not try Tylenol or NSAIDs. She denies any trauma or recent change in activity. Son at bedside states he was recently ill last week with similar symptoms. She states she developed a sore throat and rhinorrhea and took Coricidin OTC cold medication additionally. She states she has chest pain but no cough or shortness of breath. She denies any leg swelling. She states she does get li ghtheaded with standing up. She has had decreased oral intake today. She denies any change in vision or hearing, no photophobia. Patient complains of chills at this time. Pt seen during a time of high acuity and national emergency pandemic while wearing PPE. Home Medications Medication Instructions Recorded Confirmed Type Al hyd-Mg tr-alg ac-sod bicarb 80 1 tab PO UD PRN Abdominal 07/01/19 03/23/22 History mg-14.2 mg chewable tablet Discomfort (Gaviscon) amlodipine 10 mg tablet 10 mg PO QAM 07/01/19 03/23/22 History cranberry concentrate-ascorbic 1 cap PO QPM 07/01/19 03/23/22 History acid 140 mg-100 mg capsule (Cranberry Plus Vitamin C) cyanocobalamin (vitamin B-12) 2,500 mcg PO QPM 07/01/19 03/23/22 History 2,500 mcg tablet docusate sodium 100 mg tablet 300 mg PO QPM 07/01/19 03/23/22 History (Stool Softener) hydrocodone 10 mg-acetaminophen 1 tab PO BID 07/01/19 03/23/22 History 325 mg tablet losartan 50 mg tablet 50 mg PO BID 07/01/19 03/23/22 History nitroglycerin 0.4 mg sublingual 0.4 mg sublingual UD PRN Angina 07/01/19 03/23/22 History tablet omeprazole 20 mg capsule,delayed 20 mg PO QAM 07/01/19 03/23/22 History release pravastatin 40 mg tablet 40 mg PO QAM 07/01/19 03/23/22 History aspirin 81 mg chewable tablet 81 mg PO DAILY 09/01/20 03/23/22 History carvedilol 6.25 mg tablet 6.25 mg PO BID #60 tabs 10/04/20 03/23/22 Rx hydralazine 25 mg tablet 75 mg PO TID #270 tabs 10/04/20 03/23/22 Rx torsemide 10 mg tablet 10 mg PO DAILY 03/23/22 03/23/22 History Allergies Allergy/AdvReac Type Severity Reaction Status Date / Time oxycodone AdvReac Intermediate "makes me Verified 10/01/20 01:44 go crazy" gabapentin AdvReac Mild cough Verified 10/01/20 01:44 ramipril AdvReac Mild cough Verified 10/01/20 01:44 Past Med/Surg History Medical History Aortic stenosis "moderately severe by echo September 2013" Chawla's esophagus Cardiac murmur Chronic back pain Chronic sialoadenitis CKD (chronic kidney disease) stage 3, GFR 30-59 ml/min Coronary artery disease "nonocclusive disease by cath [facility] [place] September 2013" Esophageal motility disorder "noted on barium swallow 10/2014" GERD (gastroesophageal reflux disease) History of esophageal dilatation Hyperlipidemia Hypertension Leaky heart valve per pt aorta--follows with Dr. Gonzáles Osteoarthritis Poor historian Surgical History History of appendectomy History of bilateral tubal ligation History of cardiac cath x3--last 12/2018 no stents History of carpal tunnel release of both wrists History of cholecystectomy History of colonoscopy History of esophagogastroduodenoscopy (EGD) History of hysterectomy History of lumbar spinal fusion History of lumpectomy cant remember which breast---benign fatty tissue History of sinus surgery History of tonsillectomy History of tooth extraction History of total left knee replacement (TKR) History of umbilical hernia repair Family History Other No family history of adverse response to anesthesia No family history of bleeding disorder Social History Smoking Status: Former smoker Second Hand Exposure: No; Do You Dip or Chew Tobacco: No; Tobacco Cessation Education Requested by Patient: No Hx Alcohol Use: No Hx Substance Use: No Preferred Language: Burmese Communication Ability: Effective Cocktail Server Required: No Beliefs That Will Affect Care: Hoahaoism Hoahaoism Beliefs: Patient is adventism marital status: / Current Living Situation: Alone Current Living Situation Comment: Son lives across street Other Information That Helps Us Care for You: No Feels Safe at Home: No Is there a partner from a previous relationship who is making you feel unsafe now?: No Safety Concerns: Feels Safe At This Time Assistive Devices: Glasses, Walker and Wheelchair Review of Systems A total of 10 systems reviewed and were otherwise negative All systems reviewed & are unremarkable except as noted in HPI & below Physical Exam Vital Signs Vital Signs - 24 hr 03/23/22 04:01 03/23/22 04:30 03/23/22 05:00 Pulse Rate 78 64 66 Pulse Rate from SpO2 Sensor Respiratory Rate 22 22 22 Blood Pressure 182/81 H 165/65 H 176/74 H Blood Pressure Mean 114 98 108 Pulse Oximetry 95 95 96 Oxygen Flow Rate 3 3 3 03/23/22 05:30 03/23/22 06:00 03/23/22 06:30 Pulse Rate 65 67 Pulse Rate from SpO2 Sensor Respiratory Rate 22 22 Blood Pressure 182/74 H 172/56 H 170/78 H Blood Pressure Mean 110 94 108 Pulse Oximetry 96 97 Oxygen Flow Rate 3 3 03/23/22 06:30 03/23/22 06:45 03/23/22 06:50 Pulse Rate 68 75 71 Pulse Rate from SpO2 Sensor 68 76 73 Respiratory Rate 21 14 24 Blood Pressure Blood Pressure Mean Pulse Oximetry 97 95 96 Oxygen Flow Rate GENERAL: alert, unwell appearing, well nourished, no distress, non-toxic EYE EXAM: normal conjunctiva, PERRL and EOM's grossly intact OROPHARYNX: no exudate, no erythema, lips, buccal mucosa, and tongue normal and mucous membranes are dry NECK: supple, no nuchal rigidity, no adenopathy, non-tender LUNGS: Clear to auscultation. Normal chest wall mechanics, no w/r/r HEART: no murmurs, S1 normal and S2 normal ABDOMEN: abdomen soft, non-tender, normo-active bowel sounds, no masses, no rebound or guarding. BACK: Back is symmetrical on inspection and there is no deformity, no midline tenderness, no CVA tenderness. SKIN: no rashes and no bruising UPPER EXTREMITIES: upper extremities are grossly normal. FROM, nml pulses b/l. LOWER EXTREMITIES: No pitting edema. FROM, nml pulses b/l. NEURO EXAM: Normal sensorium, cranial nerves II-XII grossly intact, normal speech, no gross weakness of arms, no gross weakness of legs. Gross sensation intact. Course Course 2039: Pt updated on results. States she still having headache despite addition of Tylenol and IV fluids. She is concerned about how she feels that she lives alone does not feel she is safe to go home. Administered Medications Acetaminophen (Acetaminophen 325 Mg Tab) 650 mg PO Q4H PRN PRN Reason: Pain or Fever Stop: 04/22/22 02:10 Last Admin: 03/23/22 15:23 Dose: 650 mg Documented By: RENAY Amlodipine Besylate (Amlodipine Besylate 5 Mg Tab) 10 mg PO QAM [facility] Stop: 04/22/22 02:59 Last Admin: 03/23/22 08:26 Dose: 10 mg Documented By: Admin: 03/23/22 03:24 Dose: 10 mg Documented By: KAT Aspirin (Aspirin 81 Mg Chew) 81 mg PO DAILY [facility] Stop: 04/22/22 08:59 Last Admin: 03/23/22 08:26 Dose: 81 mg Documented By: JULIA Benzonatate (Benzonatate 100 Mg Capsule) 100 mg PO Q8 PRN PRN Reason: Cough Stop: 04/23/22 01:30 Last Admin: 03/24/22 02:01 Dose: 100 mg Documented By: TSERING Carvedilol (Carvedilol 6.25 Mg Tab) 6.25 mg PO BID [facility] Stop: 04/22/22 06:04 Last Admin: 03/23/22 20:53 Dose: 6.25 mg Documented By: Admin: 03/23/22 08:26 Dose: 6.25 mg Documented By: JULIA Docusate Sodium (Docusate Sodium 100 Mg Cap) 100 mg PO QPM [facility] Stop: 04/22/22 20:59 Last Admin: 03/23/22 20:54 Dose: Not Given Documented By: BS Guaifenesin (Guaifenesin 600 Mg Tabcr) 600 mg PO Q12 [facility] Stop: 04/22/22 08:59 Last Admin: 03/23/22 20:54 Dose: 600 mg Documented By: Admin: 03/23/22 08:30 Dose: 600 mg Documented By: NH Heparin Sodium (Porcine) (Heparin Sod 5,000 Unit/0.5 Ml Vial) 5,000 units SQ Q8 MELLISA Stop: 04/22/22 05:59 Last Admin: 03/23/22 20:56 Dose: 5,000 units Documented By: Admin: 03/23/22 18:04 Dose: Not Given Documented By: Admin: 03/23/22 06:27 Dose: 5,000 units Documented By: KAT Hydralazine HCl (Hydralazine Hcl 25 Mg Tab) 75 mg PO TID MELLISA Stop: 04/22/22 08:59 Last Admin: 03/23/22 20:54 Dose: 75 mg Documented By: Admin: 03/23/22 18:04 Dose: Not Given Documented By: Admin: 03/23/22 08:25 Dose: 75 mg Documented By: NH Losartan Potassium (Losartan Potassium 50 Mg Tab) 50 mg PO BID ME[facility] Stop: 04/22/22 08:59 Last Admin: 03/23/22 20:55 Dose: 50 mg Documented By: Admin: 03/23/22 08:25 Dose: 50 mg Documented By: NH Melatonin (Melatonin 3 Mg Tab) 3 mg PO HS PRN PRN Reason: Sleep Stop: 04/22/22 21:04 Last Admin: 03/23/22 22:39 Dose: 3 mg Documented By: BS Pantoprazole Sodium (Pantoprazole 40 Mg Tab) 40 mg PO QAM MELLISA Stop: 04/22/22 08:59 Last Admin: 03/23/22 08:24 Dose: 40 mg Documented By: NH Pravastatin Sodium (Pravastatin Sod 40 Mg Tab) 40 mg PO QAM [facility] Stop: 04/22/22 08:59 Last Admin: 03/23/22 08:27 Dose: 40 mg Documented By: NH Discontinued Medications Albuterol (Albut/Ipratrop 3mg/0.5mg Neb 3 Ml Vial) 3 ml NEB NOW STA; Protocol Stop: 03/23/22 02:25 Last Admin: 03/23/22 03:06 Dose: 3 ml Documented By: ALS Carvedilol (Carvedilol 6.25 Mg Tab) 6.25 mg PO NOW STA Stop: 03/22/22 23:02 Last Admin: 03/23/22 00:16 Dose: 6.25 mg Documented By: KAT Furosemide (Furosemide 40 Mg/4 Ml Vial) 60 mg IV NOW STA Stop: 03/23/22 03:01 Last Admin: 03/23/22 03:17 Dose: 60 mg Documented By: KAT Furosemide (Furosemide Inj 20 Mg/2 Ml Vial) 20 mg IV 1443 MELLISA Stop: 03/23/22 18:30 Last Admin: 03/23/22 18:21 Dose: 20 mg Documented By: CAITLIN Guaifenesin (Guaifenesin 600 Mg Tabcr) 600 mg PO NOW STA Stop: 03/22/22 23:04 Last Admin: 03/23/22 00:16 Dose: 600 mg Documented By: KAT Hydralazine HCl (Hydralazine Hcl 25 Mg Tab) 75 mg PO NOW STA Stop: 03/22/22 21:19 Last Admin: 03/22/22 21:53 Dose: 75 mg Documented By: IBRAHIMA Hydralazine HCl (Hydralazine Hcl 20 Mg/Ml Vial) 10 mg IV NOW STA Stop: 03/23/22 01:57 Last Admin: 03/23/22 02:08 Dose: 10 mg Documented By: KAT Hydromorphone HCl (Hydromorphone Inj 0.5 Mg/0.5 Ml Syr) 0.25 mg IV NOW STA Stop: 03/22/22 22:58 Last Admin: 03/22/22 23:17 Dose: 0.25 mg Documented By: KAT Sodium Chloride (Nss 1000ml) 1,000 mls @ 125 mls/hr IV .Q8H MELLISA Stop: 04/21/22 18:14 Last Infusion: 03/22/22 23:00 Dose: 0 mls/hr Documented By: Admin: 03/22/22 18:58 Dose: 125 mls/hr Documented By: IBRAHIMA Acetaminophen (Ofirmev) 1,000 mg in 100 mls @ 400 mls/hr IV NOW STA Stop: 03/22/22 18:24 Last Infusion: 03/22/22 19:19 Dose: 0 mls/hr Documented By: Admin: 03/22/22 18:58 Dose: 400 mls/hr Documented By: IBRAHIMA Sodium Chloride (Nss 1000ml) 1,000 mls @ 50 mls/hr IV .Q20H ONE Stop: 03/23/22 17:15 Last Infusion: 03/23/22 02:08 Dose: 0 mls/hr Documented By: Infusion: 03/23/22 02:08 Dose: 0 mls/hr Documented By: Admin: 03/22/22 23:19 Dose: 50 mls/hr Documented By: ALS Magnesium Sulfate/Dextrose (Magnesium Sulfate / D5w) 1 gm in 100 mls @ 50 mls/hr IV ONE ONE Stop: 03/23/22 05:00 Last Infusion: 03/23/22 05:22 Dose: 0 mls/hr Documented By: Admin: 03/23/22 03:22 Dose: 50 mls/hr Documented By: ALS Nitroglycerin (Nitroglycerin Sl 0.4 Mg/Tab Tab) 0.4 mg SL NOW STA Stop: 03/23/22 01:56 Last Admin: 03/23/22 02:07 Dose: 0.4 mg Documented By: KAT Torsemide (Torsemide 10 Mg Tab) 10 mg PO QAM MELL[facility] Stop: 04/22/22 08:59 Last Admin: 03/23/22 08:27 Dose: 10 mg Documented By: OK Medical Decision Making Differential Diagnosis Differential Diagnosis includes but is not limited to headache, tension headache, cluster headache, migraine, subarachnoid hemorrhage, meningitis, mass, central venous thrombus, concussion, trauma and epidural/subdural hemorrhage. Medical Records Attestation: I reviewed the patient's medical records. Home Medications Current Medication List: was personally reviewed by me Laboratory Data Attestation: I reviewed the patient's lab results. Result diagrams: 03/23/22 05:40 03/23/22 05:40 Lab Results 03/22/22 03/22/22 03/22/22 Range/Units 18:35 18:35 18:35 WBC 3.57 L (4.8-10.8) K/ul RBC 3.78 L (3.93-5.22) M/uL Hgb 10.7 L (12.0-16.0) g/dl Hct 33.4 L (34.1-44.9) % MCV 88.4 (80.0-100.0) fL MCH 28.3 (25.0-34.0) pg MCHC 32.0 (32.0-36.0) g/dL RDW Std Deviation 40.8 (36.4-46.3) fL RDW Coeff of Breanne 12.7 (11.5-14.5) % Plt Count 235 (130-400) K/uL MPV 10.4 (9.4-12.3) fL Immature Gran % (Auto) 0.3 % Neut % (Auto) 64.9 % Lymph % (Auto) 10.4 % Brooke % (Auto) 21.0 % Eos % (Auto) 2.0 % Baso % (Auto) 1.4 % Neut # (Auto) 2.32 (1.4-6.5) K/uL Lymph # (Auto) 0.37 L (1.2-3.4) K/uL Brooke # (Auto) 0.75 (0.24-0.82) K/uL Eos # (Auto) 0.07 (0-0.50) K/uL Baso # (Auto) 0.05 (0-0.2) K/uL Immature Gran # (Auto) 0.01 (0.00-0.02) K/uL APTT (21.0-31.0) Seconds PTT Ratio Sodium 139 (136-145) mmol/L Potassium 4.7 (3.5-5.1) mmol/L Chloride 102 (98-107) mmol/L Carbon Dioxide 27 (21-32) mmol/L Anion Gap 10 (3-11) BUN 41 H (6-23) mg/dl Creatinine 1.30 H (0.6-1.2) mg/dl Est Cr Clr Drug Dosing Not Reportable Est GFR ( Amer) 45.2 ml/min Est GFR (Non-Af Amer) 39.0 ml/min BUN/Creatinine Ratio 31.5 H (10-20) Glucose 110 H (70-99(Fasting)) mg/dl Calcium 9.7 (8.5-10.1) mg/dl Magnesium 1.9 (1.7-2.4) mg/dl Total Bilirubin 0.5 (0.2-1.0) mg/dl AST 23 (13-39) U/L ALT 8 (7-52) U/L Alkaline Phosphatase 70 (34-104) U/L Troponin I High Sens 68.2 H* (0-14) pg/ml Total Protein 7.9 (6.0-8.3) gm/dl Albumin 4.1 (3.4-5.0) gm/dl Globulin 3.8 (2.5-4.0) gm/dl Albumin/Globulin Ratio 1.1 (0.9-2) Lipase 27 (11-82) U/L TSH 0.976 (0.300-4.500) uIu/ml Urine Color Urine Appearance (Clear) Urine pH (4.5-7.5) Ur Specific [place] (1.000-1.030) Urine Protein (Negative) Urine Glucose (UA) (Negative) Urine Ketones (Negative) Urine Blood (Negative) Urine Nitrite (Negative) Urine Bilirubin (Negative) Urine Urobilinogen (Negative) Ur Leukocyte Esterase (Negative) Urine WBC (Auto) (0-5) /hpf Urine RBC (Auto) (0-4) /hpf U Hyaline Cast (Auto) (0-5) /lpf U Epithel Cells (Auto) (0-5) /lpf Urine Bacteria (Auto) (Negative) Lyme Disease IgG Ab (Negative) Lyme Disease IgM Ab (Negative) SARS-CoV-2 (PCR) (Negative) Influenza Type A (PCR) (Neg) Influenza Type B (PCR) (Neg) RSV (RT-PCR) (Neg) 03/22/22 03/22/22 03/22/22 Range/Units 18:35 19:33 21:43 WBC (4.8-10.8) K/ul RBC (3.93-5.22) M/uL Hgb (12.0-16.0) g/dl Hct (34.1-44.9) % MCV (80.0-100.0) fL MCH (25.0-34.0) pg MCHC (32.0-36.0) g/dL RDW Std Deviation (36.4-46.3) fL RDW Coeff of Breanne (11.5-14.5) % Plt Count (130-400) K/uL MPV (9.4-12.3) fL Immature Gran % (Auto) % Neut % (Auto) % Lymph % (Auto) % Brooke % (Auto) % Eos % (Auto) % Baso % (Auto) % Neut # (Auto) (1.4-6.5) K/uL Lymph # (Auto) (1.2-3.4) K/uL Brooke # (Auto) (0.24-0.82) K/uL Eos # (Auto) (0-0.50) K/uL Baso # (Auto) (0-0.2) K/uL Immature Gran # (Auto) (0.00-0.02) K/uL APTT 29.3 (21.0-31.0) Seconds PTT Ratio 1.1 Sodium (136-145) mmol/L Potassium (3.5-5.1) mmol/L Chloride (98-107) mmol/L Carbon Dioxide (21-32) mmol/L Anion Gap (3-11) BUN (6-23) mg/dl Creatinine (0.6-1.2) mg/dl Est Cr Clr Drug Dosing Est GFR ( Amer) ml/min Est GFR (Non-Af Amer) ml/min BUN/Creatinine Ratio (10-20) Glucose (70-99(Fasting)) mg/dl Calcium (8.5-10.1) mg/dl Magnesium (1.7-2.4) mg/dl Total Bilirubin (0.2-1.0) mg/dl AST (13-39) U/L ALT (7-52) U/L Alkaline Phosphatase (34-104) U/L Troponin I High Sens (0-14) pg/ml Total Protein (6.0-8.3) gm/dl Albumin (3.4-5.0) gm/dl Globulin (2.5-4.0) gm/dl Albumin/Globulin Ratio (0.9-2) Lipase (11-82) U/L TSH (0.300-4.500) uIu/ml Urine Color Urine Appearance (Clear) Urine pH (4.5-7.5) Ur Specific [place] (1.000-1.030) Urine Protein (Negative) Urine Glucose (UA) (Negative) Urine Ketones (Negative) Urine Blood (Negative) Urine Nitrite (Negative) Urine Bilirubin (Negative) Urine Urobilinogen (Negative) Ur Leukocyte Esterase (Negative) Urine WBC (Auto) (0-5) /hpf Urine RBC (Auto) (0-4) /hpf U Hyaline Cast (Auto) (0-5) /lpf U Epithel Cells (Auto) (0-5) /lpf Urine Bacteria (Auto) (Negative) Lyme Disease IgG Ab Negative (Negative) Lyme Disease IgM Ab Negative (Negative) SARS-CoV-2 (PCR) POSITIVE A* (Negative) Influenza Type A (PCR) Negative (Neg) Influenza Type B (PCR) Negative (Neg) RSV (RT-PCR) Negative (Neg) 03/22/22 03/22/22 03/23/22 Range/Units 21:43 23:25 01:39 WBC (4.8-10.8) K/ul RBC (3.93-5.22) M/uL Hgb (12.0-16.0) g/dl Hct (34.1-44.9) % MCV (80.0-100.0) fL MCH (25.0-34.0) pg MCHC (32.0-36.0) g/dL RDW Std Deviation (36.4-46.3) fL RDW Coeff of Breanne (11.5-14.5) % Plt Count (130-400) K/uL MPV (9.4-12.3) fL Immature Gran % (Auto) % Neut % (Auto) % Lymph % (Auto) % Brooke % (Auto) % Eos % (Auto) % Baso % (Auto) % Neut # (Auto) (1.4-6.5) K/uL Lymph # (Auto) (1.2-3.4) K/uL Brooke # (Auto) (0.24-0.82) K/uL Eos # (Auto) (0-0.50) K/uL Baso # (Auto) (0-0.2) K/uL Immature Gran # (Auto) (0.00-0.02) K/uL APTT (21.0-31.0) Seconds PTT Ratio Sodium (136-145) mmol/L Potassium (3.5-5.1) mmol/L Chloride (98-107) mmol/L Carbon Dioxide (21-32) mmol/L Anion Gap (3-11) BUN (6-23) mg/dl Creatinine (0.6-1.2) mg/dl Est Cr Clr Drug Dosing Est GFR ( Amer) ml/min Est GFR (Non-Af Amer) ml/min BUN/Creatinine Ratio (10-20) Glucose (70-99(Fasting)) mg/dl Calcium (8.5-10.1) mg/dl Magnesium (1.7-2.4) mg/dl Total Bilirubin (0.2-1.0) mg/dl AST (13-39) U/L ALT (7-52) U/L Alkaline Phosphatase (34-104) U/L Troponin I High Sens 93.5 H* D 114.2 H* D (0-14) pg/ml Total Protein (6.0-8.3) gm/dl Albumin (3.4-5.0) gm/dl Globulin (2.5-4.0) gm/dl Albumin/Globulin Ratio (0.9-2) Lipase (11-82) U/L TSH (0.300-4.500) uIu/ml Urine Color Yellow Urine Appearance Cloudy A (Clear) Urine pH 5.5 (4.5-7.5) Ur Specific [place] 1.016 (1.000-1.030) Urine Protein 3+ H (Negative) Urine Glucose (UA) Negative (Negative) Urine Ketones Negative (Negative) Urine Blood Trace H (Negative) Urine Nitrite Negative (Negative) Urine Bilirubin Negative (Negative) Urine Urobilinogen Negative (Negative) Ur Leukocyte Esterase 2+ H (Negative) Urine WBC (Auto) >30 H (0-5) /hpf Urine RBC (Auto) 0-4 (0-4) /hpf U Hyaline Cast (Auto) 1-5 (0-5) /lpf U Epithel Cells (Auto) 0-5 (0-5) /lpf Urine Bacteria (Auto) 4+ H (Negative) Lyme Disease IgG Ab (Negative) Lyme Disease IgM Ab (Negative) SARS-CoV-2 (PCR) (Negative) Influenza Type A (PCR) (Neg) Influenza Type B (PCR) (Neg) RSV (RT-PCR) (Neg) 03/23/22 03/23/22 03/23/22 Range/Units 05:40 05:40 05:40 WBC 3.69 L (4.8-10.8) K/ul RBC 3.65 L (3.93-5.22) M/uL Hgb 10.5 L (12.0-16.0) g/dl Hct 32.6 L (34.1-44.9) % MCV 89.3 (80.0-100.0) fL MCH 28.8 (25.0-34.0) pg MCHC 32.2 (32.0-36.0) g/dL RDW Std Deviation 41.5 (36.4-46.3) fL RDW Coeff of Breanne 12.7 (11.5-14.5) % Plt Count 191 (130-400) K/uL MPV 10.7 (9.4-12.3) fL Immature Gran % (Auto) 0.5 % Neut % (Auto) 66.2 % Lymph % (Auto) 15.4 % Brooke % (Auto) 17.3 % Eos % (Auto) 0.3 % Baso % (Auto) 0.3 % Neut # (Auto) 2.44 (1.4-6.5) K/uL Lymph # (Auto) 0.57 L (1.2-3.4) K/uL Brooke # (Auto) 0.64 (0.24-0.82) K/uL Eos # (Auto) 0.01 (0-0.50) K/uL Baso # (Auto) 0.01 (0-0.2) K/uL Immature Gran # (Auto) 0.02 (0.00-0.02) K/uL APTT (21.0-31.0) Seconds PTT Ratio Sodium 139 (136-145) mmol/L Potassium 3.8 (3.5-5.1) mmol/L Chloride 106 (98-107) mmol/L Carbon Dioxide 23 (21-32) mmol/L Anion Gap 10 (3-11) BUN 40 H (6-23) mg/dl Creatinine 1.21 H (0.6-1.2) mg/dl Est Cr Clr Drug Dosing 37.3 Est GFR ( Amer) 49.3 ml/min Est GFR (Non-Af Amer) 42.5 ml/min BUN/Creatinine Ratio 33.1 H (10-20) Glucose 99 (70-99(Fasting)) mg/dl Calcium 8.6 (8.5-10.1) mg/dl Magnesium (1.7-2.4) mg/dl Total Bilirubin (0.2-1.0) mg/dl AST (13-39) U/L ALT (7-52) U/L Alkaline Phosphatase (34-104) U/L Troponin I High Sens 139.5 H* D (0-14) pg/ml Total Protein (6.0-8.3) gm/dl Albumin (3.4-5.0) gm/dl Globulin (2.5-4.0) gm/dl Albumin/Globulin Ratio (0.9-2) Lipase (11-82) U/L TSH (0.300-4.500) uIu/ml Urine Color Urine Appearance (Clear) Urine pH (4.5-7.5) Ur Specific [place] (1.000-1.030) Urine Protein (Negative) Urine Glucose (UA) (Negative) Urine Ketones (Negative) Urine Blood (Negative) Urine Nitrite (Negative) Urine Bilirubin (Negative) Urine Urobilinogen (Negative) Ur Leukocyte Esterase (Negative) Urine WBC (Auto) (0-5) /hpf Urine RBC (Auto) (0-4) /hpf U Hyaline Cast (Auto) (0-5) /lpf U Epithel Cells (Auto) (0-5) /lpf Urine Bacteria (Auto) (Negative) Lyme Disease IgG Ab (Negative) Lyme Disease IgM Ab (Negative) SARS-CoV-2 (PCR) (Negative) Influenza Type A (PCR) (Neg) Influenza Type B (PCR) (Neg) RSV (RT-PCR) (Neg) Imaging Data Radiologist's Impression: Chest X-Ray 03/22/22 18:10 XR chest 1V portable CLINICAL HISTORY: Atypical chest pain. COMPARISON STUDY: Chest radiograph September 30, 2020. FINDINGS: No pneumothorax or pleural effusion is present. There is no consolidation. Moderate cardiomegaly is noted with extensive mitral annular calcification. No evidence for pulmonary edema. IMPRESSION: No acute cardiopulmonary findings. Cardiomegaly. ACT 112: Negative or not required by law. Electronically signed by: Roberto Herrera M.D. 03/22/2022 7:[address] 03/22/22 18:10 CT OF THE HEAD WITHOUT CONTRAST CLINICAL HISTORY: headache COMPARISON STUDY: Head CT February 04, 2016. CT DOSE: 537.48 mGy.cm TECHNIQUE: Helical axial images of the head were obtained without IV contrast. Automated exposure control was utilized for the study. A dose lowering technique was utilized adhering to the principles of ALARA. FINDINGS: No acute intracranial hemorrhage, midline shift or mass effect is present. White matter hypodensity suggests small vessel disease. The ventricular system is unremarkable. The basal cisterns are patent. No extra-axial collections are present. There are no findings to suggest acute dural sinus thrombosis or acute territorial infarct. No significant calvarial abnormalities are present. Visualized portions of the sinuses and mastoid air cells are clear. IMPRESSION: No acute intracranial findings. ACT 112: Negative or not required by law. Electronically signed by: Roberto Herrera M.D. 03/22/2022 8:13 PM ECG Data Attestation: I personally reviewed and interpreted this ECG as follows: Indication: + weakness Rate (beats per minute): 75 Rhythm: + normal sinus ECG Intervals/blocks: + Normal QRS and + Normal QT ECG [place]: + Normal ECG ST segments: + Nonspecific ST abnormalities MDM Narrative An order was placed for continuous cardiac monitoring. The monitor shows a rate of _78__ with _normal sinus__ rhythm. This is an ill-appearing 77-year-old female presents emergency department with complaints of weakness, headache, body aches, cough. Patient did have recent sick contact. Patient initially seen in a waiting room area as she presented on day of high volume and acuity. Patient's vital signs were stable. She was ultimately moved to a patient room. Labs were drawn and sent from the waiting room area and chest x-ray performed. Patient started on IV fluids and given Tylenol for her body aches and headache. Patient found to be COVID-positive. She did have anemia which appears likely chronic. Leukopenia likely secondary to acute viral process. Patient was found to have an elevated troponin. Given her advanced age and past cardiac history, this was more concerning patient moderate risk for cardiac decompensation. No acute EKG changes and patient denied any focal chest pain. Patient's chest x-ray without other acutely concerning findings. CT of the head also reassuring. She was given cautious and careful IV fluids due to her cardiac status. Case discussed with hospitalist for additional evaluation and management. Urine pending at that time. Impression & Plan Generalized weakness, Hypomagnesemia, COVID-19, Anemia, Myalgia Discharge Plan Visit Data Chief Complaint: Headache Stated Complaint: MUSCLE ACHES, TROUBLE SWALLOWING, HEADACHE ED Provider: Anel Danielle Discharge Problem: Generalized weakness, Hypomagnesemia, COVID-19, Anemia, Myalgia Patient Disposition: Admitted As Inpatient Discharge Instructions Interventions: ED Discharge Assessment Last Done: 03/23/22 15:19
[2022-03-22] MEDS ORDERED: SODIUM CHLORIDE 0.9% 1000ML 1,000 ML IV SCH (18:15)
[2022-03-22 18:47] LABS: Basophils # (auto) 0.05 K/uL (0-0.2); Basophils % (auto) 1.4 %; Eosinophils # (auto) 0.07 K/uL (0-0.50); Hematocrit (blood only) 33.4 % (34.1-44.9); Hemoglobin 10.7 g/dl (12.0-16.0); Immature Granulocytes # (auto) 0.01 K/uL (0.00-0.02); Immature Granulocytes % (auto) 0.3 %; Lymphocytes # (auto) 0.37 K/uL (1.2-3.4); Lymphocytes % (auto) 10.4 %; Mean Corpuscular Hemoglobin 28.3 pg (25.0-34.0); Mean Corpuscular Volume 88.4 fL (80.0-100.0); Mean Platelet Volume 10.4 fL (9.4-12.3); Monocytes # (auto) 0.75 K/uL (0.24-0.82); Neutrophils # (auto) 2.32 K/uL (1.4-6.5); Neutrophils % (auto) 64.9 %; Platelet Count 235 K/uL (130-400); RDW Coefficient of Variation 12.7 % (11.5-14.5); RDW Standard Deviation 40.8 fL (36.4-46.3); Red Blood Count 3.78 M/uL (3.93-5.22); White Blood Count 3.57 K/ul (4.8-10.8)
[2022-03-22 19:14] LABS: Alanine Aminotransferase 8 U/L (7-52); Albumin Globulin Ratio 1.1 (0.9-2); Albumin Level 4.1 gm/dl (3.4-5.0); Alkaline Phosphatase 70 U/L (34-104); Anion Gap 10 (3-11); Aspartate Aminotransferase 23 U/L (13-39); BUN Creatinine Ratio 31.5 (10-20); Bilirubin,Total 0.5 mg/dl (0.2-1.0); Blood Urea Nitrogen 41 mg/dl (6-23); Calcium 9.7 mg/dl (8.5-10.1); Carbon Dioxide 27 mmol/L (21-32); Chloride 102 mmol/L (98-107); Est GFR (African American) 45.2 ml/min; Globulin 3.8 gm/dl (2.5-4.0); Glucose 110 mg/dl (70-99(Fasting)); Lipase 27 U/L (11-82); Magnesium 1.9 mg/dl (1.7-2.4); Potassium 4.7 mmol/L (3.5-5.1); Sodium 139 mmol/L (136-145); Total Protein 7.9 gm/dl (6.0-8.3)
[2022-03-22 19:16] LABS: Troponin I High Sensitivity 68.2 pg/ml (0-14)
[2022-03-22 19:31] LABS: Lyme Ab IgG w/WB Rflx Negative (Negative); Lyme Ab IgM w/WB Rflx Negative (Negative)
--- NOTE | 2022-03-22 19:45 | XRay Report ---
XR chest 1V portable CLINICAL HISTORY: Atypical chest pain. COMPARISON STUDY: Chest radiograph September 30, 2020. FINDINGS: No pneumothorax or pleural effusion is present. There is no consolidation. Moderate cardiom egaly is noted with extensive mitral annular calcification. No evidence for pulmonary edema. IMPRESSION: No acute cardiopulmonary findings. Cardiomegaly. ACT 112: Negative or not required by law. Electronically signed by: Roberto Herrera M.D. 03/22/2022 7:44 PM
--- NOTE | 2022-03-22 20:15 | CT Scan Report ---
CT OF THE HEAD WITHOUT CONTRAST CLINICAL HISTORY: headache COMPARISON STUDY: Head CT February 04, 2016. CT DOSE: 537.48 mGy.cm TECHNIQUE: Helical axial images of the head were obtained without IV contrast. Automated exposure con trol was utilized for the study. A dose lowering technique was utilized adhering to the principles o f ALARA. FINDINGS: No acute intracranial hemorrhage, midline shift or mass effect is present. White matter hyp odensity suggests small vessel disease. The ventricular system is unremarkable. The basal cisterns ar e patent. No extra-axial collections are present. There are no findings to suggest acute dural sinus thrombosis or acute territorial infarct. No significant calvarial abnormalities are present. Visualiz ed portions of the sinuses and mastoid air cells are clear. IMPRESSION: No acute intracranial findings. ACT 112: Negative or not required by law. Electronically signed by: Roberto Herrera M.D. 03/22/2022 8:13 PM
[2022-03-22 20:21] LABS: Influenza A virus by PCR Negative (Neg); Influenza B virus by PCR Negative (Neg); RSV by PCR Negative (Neg)
[2022-03-22 20:40] LABS: SARS CoV2 RNA(COVID-19) InHosp POSITIVE (Negative)
[2022-03-22] MEDS ORDERED: SODIUM CHLORIDE 0.9% 1000ML 1,000 ML IV ONE (21:16)
[2022-03-22] MEDS ORDERED: hydrALAZINE HCL 25 MG TAB PO STA (21:18)
[2022-03-22 22:08] LABS: Partial Thromboplastin Ratio 1.1; Partial Thromboplastin Time 29.3 Seconds (21.0-31.0)
[2022-03-22] MEDS ORDERED: HYDROmorphone INJ 0.5 MG/0.5 ML SYR IV STA (22:57)
[2022-03-22] MEDS ORDERED: PROMETHAZINE HCL 6.25 MG in SODIUM CHLORIDE 0.9% 50 ML IV PRN (22:58)
--- NOTE | 2022-03-22 22:58 | History & Physical Report ---
Date of Service March 22, 2022 Assessment & Plan (1) Hypertensive crisis: Plan: Presenting as chest pain and headache symptoms in the setting of COVID-19 illness Patient nontoxic. 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 COPD, pulmonary hypertension as per records, patient currently oxygenating well CRI, creatinine better than recent outpatient baseline chronic anemia, hemoglobin at baseline chronic pain past tobacco abuse OBS Medical telemetry Analgesia Facilitate home BP meds and titrate as needed Follow troponin Supportive management for COVID-19 illness No indication for antibiotics or antiviral Rx for now PT OT eval DVT prophylaxis. Heparin subcu DNR Patient requesting son to be updated of progress. Mr. Olu Pugh, contact #[phone]. Text document was generated using [employer] voice recognition software. It may contain grammatical or spelling errors. Kindly contact undersigned for clarification of any documentation item in question. History of Present Illness Chief Complaint: Chest pain, headache, shortness of breath Primary Care Provider: Jazzy Appiah, History obtained from patient and records. Medical history significant for chronic diastolic heart failure (EF 60 to 65%, TTE 2021), hypertension, nonocclusive CAD, PVD, rheumatic heart disease as per records, VHD (severe , mild AR/TR), COPD, pulmonary hypertension as per records, CRI (baseline creatinine 1.9-2), chronic anemia (baseline hemoglobin 10-11), chronic pain as per records, past tobacco abuse. Last confinement September 2020 for decompensated heart failure. Patient not feeling well the last few days. Achy headache, body aches, chest pain with dry cough and shortness of breath symptoms. No unusual fluid retention. Poor appetite. Denies abdominal pain. Sick COVID-19 contacts. Patient completed COVID-19 vaccination. SBP 180s upon arrival at the ER. Patient compliant with home medications. MEDICAL HISTORY: As above. SURGERIES: Carpal tunnel, hernia repair, cholecystectomy, back surgery, knee replacement, appendectomy, hysterectomy. FAMILY HISTORY: Hypertension, dementia, diabetes, heart disease and hypertension. PERSONAL AND SOCIAL HISTORY: Past tobacco abuse. No chronic intake of alcoholic beverages. Retired [employer] employee Allergies Allergy/AdvReac Type Severity Reaction Status Date / Time oxycodone AdvReac Intermediate "makes me Verified 10/01/20 01:44 go crazy" gabapentin AdvReac Mild cough Verified 10/01/20 01:44 ramipril AdvReac Mild cough Verified 10/01/20 01:44 Home Medications Medication Instructions Recorded Confirmed Type Al hyd-Mg tr-alg ac-sod bicarb 80 1 tab PO UD PRN Abdominal 07/01/19 03/23/22 History mg-14.2 mg chewable tablet Discomfort (Gaviscon) amlodipine 10 mg tablet 10 mg PO QAM 07/01/19 03/23/22 History cranberry concentrate-ascorbic 1 cap PO QPM 07/01/19 03/23/22 History acid 140 mg-100 mg capsule (Cranberry Plus Vitamin C) cyanocobalamin (vitamin B-12) 2,500 mcg PO QPM 07/01/19 03/23/22 History 2,500 mcg tablet docusate sodium 100 mg tablet 300 mg PO QPM 07/01/19 03/23/22 History (Stool Softener) hydrocodone 10 mg-acetaminophen 1 tab PO BID 07/01/19 03/23/22 History 325 mg tablet losartan 50 mg tablet 50 mg PO BID 07/01/19 03/23/22 History nitroglycerin 0.4 mg sublingual 0.4 mg sublingual UD PRN Angina 07/01/19 03/23/22 History tablet omeprazole 20 mg capsule,delayed 20 mg PO QAM 07/01/19 03/23/22 History release pravastatin 40 mg tablet 40 mg PO QAM 07/01/19 03/23/22 History aspirin 81 mg chewable tablet 81 mg PO DAILY 09/01/20 03/23/22 History carvedilol 6.25 mg tablet 6.25 mg PO BID #60 tabs 10/04/20 03/23/22 Rx hydralazine 25 mg tablet 75 mg PO TID #270 tabs 10/04/20 03/23/22 Rx torsemide 10 mg tablet 10 mg PO DAILY 03/23/22 03/23/22 History Past Med/Surg History Medical History Aortic stenosis "moderately severe by echo September 2013" Chawla's esophagus Cardiac murmur Chronic back pain Chronic sialoadenitis CKD (chronic kidney disease) stage 3, GFR 30-59 ml/min Coronary artery disease "nonocclusive disease by cath [facility] [place] September 2013" Esophageal motility disorder "noted on barium swallow 10/2014" GERD (gastroesophageal reflux disease) History of esophageal dilatation Hyperlipidemia Hypertension Leaky heart valve per pt aorta--follows with Dr. Nivia Dickson Poor historian Surgical History History of appendectomy History of bilateral tubal ligation History of cardiac cath x3--last 12/2018 no stents History of carpal tunnel release of both wrists History of cholecystectomy History of colonoscopy History of esophagogastroduodenoscopy (EGD) History of hysterectomy History of lumbar spinal fusion History of lumpectomy cant remember which breast---benign fatty tissue History of sinus surgery History of tonsillectomy History of tooth extraction History of total left knee replacement (TKR) History of umbilical hernia repair Family History Other No family history of adverse response to anesthesia No family history of bleeding disorder Social History Smoking Status: Never smoker Second Hand Exposure: Yes (husand smoked); Hx Alcohol Use: No Hx Substance Use: No Preferred Language: Frisian Communication Ability: Effective Rn Neurology Required: No Beliefs That Will Affect Care: None Current Living Situation: Spouse Feels Safe at Home: Yes Assistive Devices: Cane and Glasses Review of Systems Review of Systems: As per HPI, all other systems reviewed and negative Physical Exam Physical Exam: GENERAL: uncomfortable, anxious, no respiratory distress SKIN: Pallor, warm HEENT: Pale palpebral conjunctivae, no ptosis, dry buccal mucosa NECK : Supple, no tenderness CHEST : Decreased breath sounds, no tenderness HEART : RRR, systolic murmur loudest on the left sternal border, obliterated S1- S2 ABDOMEN: Some distention, nontender EXTREMITIES : Minimal LE swelling, no LE tenderness NEUROLOGIC : Coherent, no facial asymmetry, no other gross focality Results & Data Results & Data ([facility]) Vital Signs (Past 12 Hours) Vital Signs Temp Pulse Resp BP Pulse Ox O2 Del Method 03/22/22 17:21 36.5 C 81 18 188/67 H 94 Room Air Laboratory Results Laboratory Results WBC 3.57 K/ul (4.8-10.8) L 03/22/22 18:35 RBC 3.78 M/uL (3.93-5.22) L 03/22/22 18:35 Hgb 10.7 g/dl (12.0-16.0) L 03/22/22 18:35 Hct 33.4 % (34.1-44.9) L 03/22/22 18:35 MCV 88.4 fL (80.0-100.0) 03/22/22 18:35 MCH 28.3 pg (25.0-34.0) 03/22/22 18:35 MCHC 32.0 g/dL (32.0-36.0) 03/22/22 18:35 RDW Std Deviation 40.8 fL (36.4-46.3) 03/22/22 18:35 RDW Coeff of Breanne 12.7 % (11.5-14.5) 03/22/22 18:35 Plt Count 235 K/uL (130-400) 03/22/22 18:35 MPV 10.4 fL (9.4-12.3) 03/22/22 18:35 Immature Gran % (Auto) 0.3 % 03/22/22 18:35 Neut % (Auto) 64.9 % 03/22/22 18:35 Lymph % (Auto) 10.4 % 03/22/22 18:35 Bell % (Auto) 21.0 % 03/22/22 18:35 Eos % (Auto) 2.0 % 03/22/22 18:35 Baso % (Auto) 1.4 % 03/22/22 18:35 Neut # (Auto) 2.32 K/uL (1.4-6.5) 03/22/22 18:35 Lymph # (Auto) 0.37 K/uL (1.2-3.4) L 03/22/22 18:35 Bell # (Auto) 0.75 K/uL (0.24-0.82) 03/22/22 18:35 Eos # (Auto) 0.07 K/uL (0-0.50) 03/22/22 18:35 Baso # (Auto) 0.05 K/uL (0-0.2) 03/22/22 18:35 Immature Gran # (Auto) 0.01 K/uL (0.00-0.02) 03/22/22 18:35 APTT 29.3 Seconds (21.0-31.0) 03/22/22 21:43 PTT Ratio 1.1 03/22/22 21:43 Sodium 139 mmol/L (136-145) 03/22/22 18:35 Potassium 4.7 mmol/L (3.5-5.1) 03/22/22 18:35 Chloride 102 mmol/L (98-107) 03/22/22 18:35 Carbon Dioxide 27 mmol/L (21-32) 03/22/22 18:35 Anion Gap 10 (3-11) 03/22/22 18:35 BUN 41 mg/dl (6-23) H 03/22/22 18:35 Creatinine 1.30 mg/dl (0.6-1.2) H 03/22/22 18:35 Est Cr Clr Drug Dosing Not Reportable 03/22/22 18:35 Est GFR ( Amer) 45.2 ml/min 03/22/22 18:35 Est GFR (Non-Af Amer) 39.0 ml/min 03/22/22 18:35 BUN/Creatinine Ratio 31.5 (10-20) H 03/22/22 18:35 Glucose 110 mg/dl (70-99(Fasting)) H 03/22/22 18:35 Calcium 9.7 mg/dl (8.5-10.1) 03/22/22 18:35 Magnesium 1.9 mg/dl (1.7-2.4) 03/22/22 18:35 Total Bilirubin 0.5 mg/dl (0.2-1.0) 03/22/22 18:35 AST 23 U/L (13-39) 03/22/22 18:35 ALT 8 U/L (7-52) 03/22/22 18:35 Alkaline Phosphatase 70 U/L (34-104) 03/22/22 18:35 Troponin I High Sens 93.5 pg/ml (0-14) H* D 03/22/22 21:43 Total Protein 7.9 gm/dl (6.0-8.3) 03/22/22 18:35 Albumin 4.1 gm/dl (3.4-5.0) 03/22/22 18:35 Globulin 3.8 gm/dl (2.5-4.0) 03/22/22 18:35 Albumin/Globulin Ratio 1.1 (0.9-2) 03/22/22 18:35 Lipase 27 U/L (11-82) 03/22/22 18:35 TSH 0.976 uIu/ml (0.300-4.500) 03/22/22 18:35 Lyme Disease IgG Ab Negative (Negative) 03/22/22 18:35 Lyme Disease IgM Ab Negative (Negative) 03/22/22 18:35 SARS-CoV-2 (PCR) POSITIVE (Negative) A* 03/22/22 19:33 Influenza Type A (PCR) Negative (Neg) 03/22/22 19:33 Influenza Type B (PCR) Negative (Neg) 03/22/22 19:33 RSV (RT-PCR) Negative (Neg) 03/22/22 19:33 Impressions Chest X-Ray 03/22/22 18:10 XR chest 1V portable CLINICAL HISTORY: Atypical chest pain. COMPARISON STUDY: Chest radiograph September 30, 2020. FINDINGS: No pneumothorax or pleural effusion is present. There is no consolidation. Moderate cardiomegaly is noted with extensive mitral annular calcification. No evidence for pulmonary edema. IMPRESSION: No acute cardiopulmonary findings. Cardiomegaly. ACT 112: Negative or not required by law. Electronically signed by: Roberto Herrera M.D. 03/22/2022 7:[address] 03/22/22 18:10 CT OF THE HEAD WITHOUT CONTRAST CLINICAL HISTORY: headache COMPARISON STUDY: Head CT February 04, 2016. CT DOSE: 537.48 mGy.cm TECHNIQUE: Helical axial images of the head were obtained without IV contrast. Automated exposure control was utilized for the study. A dose lowering technique was utilized adhering to the principles of ALARA. FINDINGS: No acute intracranial hemorrhage, midline shift or mass effect is present. White matter hypodensity suggests small vessel disease. The ventricular system is unremarkable. The basal cisterns are patent. No extra-axial collections are present. There are no findings to suggest acute dural sinus thrombosis or acute territorial infarct. No significant calvarial abnormalities are present. Visualized portions of the sinuses and mastoid air cells are clear. IMPRESSION: No acute intracranial findings. ACT 112: Negative or not required by law. Electronically signed by: Roberto Herrera M.D. 03/22/2022 8:13 PM Diagnostic Findings EKG as per my interpretation : Rate 75, NSR, LAD, LAFB, RBBB, LVH ischemia
[2022-03-22] MEDS ORDERED: carvediloL 6.25 MG TAB PO STA (23:01)
[2022-03-22] MEDS ORDERED: guaiFENesin 600 MG TABCR PO STA (23:03)
[2022-03-22] MEDS ORDERED: HYDROCODONE/ACETAMOPHEN 5/325MG TAB PO PRN (23:03)
[2022-03-22] MEDS ORDERED: HYDROmorphone INJ 0.5 MG/0.5 ML SYR IV PRN (23:03)
[2022-03-22 23:42] LABS: Appearance Urine Cloudy (Clear); Bacteria Urine Automated 4+ (Negative); Bilirubin Urine Negative (Negative); Blood Urine Trace (Negative); Color Urine Yellow; Epithelial Cell Urine Auto 0-5 /lpf (0-5); Glucose Urine UA Negative (Negative); Ketones Urine Negative (Negative); Leukocyte Esterase Urine 2+ (Negative); Nitrite Urine Negative (Negative); Protein Urine 3+ (Negative); RBC Urine Automated 0-4 /hpf (0-4); Specific Gravity Urine 1.016 (1.000-1.030); Urobilinogen Urine Negative (Negative); WBC Urine Automated >30 /hpf (0-5); pH Urine 5.5 (4.5-7.5)
[2022-03-23] MEDS ORDERED: NITROGLYCERIN SL 0.4 MG/TAB TAB SL STA (01:55)
[2022-03-23] MEDS ORDERED: hydrALAZINE HCL 20 MG/ML VIAL IV STA (01:56)
[2022-03-23] MEDS ORDERED: NITROGLYCERIN SL 0.4 MG/TAB TAB SL PRN (02:11)
[2022-03-23] MEDS ORDERED: ALBUT/IPRATROP 3MG/0.5MG NEB 3 ML VIAL NEB STA (02:24)
[2022-03-23] MEDS ORDERED: FUROSEMIDE 40 MG/4 ML VIAL IV STA (03:00)
[2022-03-23] MEDS ORDERED: MAGNESIUM SULFATE / D5W 1 GM/100 ML BAG IV ONE (03:01)
[2022-03-23] MEDS: amLODIPine BESYLATE 5 MG TAB PO SCH ×2 (03:24→08:26)
[2022-03-23] MEDS: HEPARIN SOD 5,000 UNIT/0.5 ML VIAL SQ SCH ×3 (06:27→20:56)
[2022-03-23 06:44] LABS: Hematocrit (blood only) 32.6 % (34.1-44.9); Hemoglobin 10.5 g/dl (12.0-16.0); Mean Corpuscular Hemoglobin 28.8 pg (25.0-34.0); Mean Corpuscular Hgb Conc 32.2 g/dL (32.0-36.0); Mean Corpuscular Volume 89.3 fL (80.0-100.0); Mean Platelet Volume 10.7 fL (9.4-12.3); Platelet Count 191 K/uL (130-400); RDW Coefficient of Variation 12.7 % (11.5-14.5); RDW Standard Deviation 41.5 fL (36.4-46.3); Red Blood Count 3.65 M/uL (3.93-5.22); White Blood Count 3.69 K/ul (4.8-10.8)
[2022-03-23 06:46] LABS: BUN Creatinine Ratio 33.1 (10-20); Calcium 8.6 mg/dl (8.5-10.1); Creatinine Clr Calc Pharmacy 37.3 ml/min; Est GFR (African American) 49.3 ml/min; Est GFR (Non-African American) 42.5 ml/min; Potassium 3.8 mmol/L (3.5-5.1)
[2022-03-23 06:49] LABS: Basophils # (auto) 0.01 K/uL (0-0.2); Basophils % (auto) 0.3 %; Eosinophils # (auto) 0.01 K/uL (0-0.50); Eosinophils % (auto) 0.3 %; Immature Granulocytes # (auto) 0.02 K/uL (0.00-0.02); Immature Granulocytes % (auto) 0.5 %; Lymphocytes # (auto) 0.57 K/uL (1.2-3.4); Lymphocytes % (auto) 15.4 %; Monocytes # (auto) 0.64 K/uL (0.24-0.82); Monocytes % (auto) 17.3 %; Neutrophils # (auto) 2.44 K/uL (1.4-6.5); Neutrophils % (auto) 66.2 %
[2022-03-23] MEDS: PANTOprazole 40 MG TAB PO SCH (08:24)
[2022-03-23] MEDS: LOSARTAN POTASSIUM 50 MG TAB PO SCH ×2 (08:25→20:55)
[2022-03-23] MEDS: hydrALAZINE HCL 25 MG TAB PO SCH ×3 (08:25→20:54)
[2022-03-23] MEDS: ASPIRIN 81 MG CHEW PO SCH (08:26)
[2022-03-23] MEDS: carvediloL 6.25 MG TAB PO SCH ×2 (08:26→20:53)
[2022-03-23] MEDS: PRAVASTATIN SOD 40 MG TAB PO SCH (08:27)
[2022-03-23] MEDS: guaiFENesin 600 MG TABCR PO SCH ×2 (08:30→20:54)
[2022-03-23] MEDS ORDERED: TORSEMIDE 10 MG TAB PO SCH (09:00)
[2022-03-23] MEDS ORDERED: carvediloL 6.25 MG TAB PO SCH (09:00)
[2022-03-23] MEDS ORDERED: amLODIPine BESYLATE 5 MG TAB PO SCH (09:00)
--- NOTE | 2022-03-23 09:01 | XRay Report ---
SINGLE VIEW CHEST CLINICAL HISTORY: Dyspnea. Atypical chest pain. FINDINGS: An AP, portable, upright chest radiograph is compared to study dated 03/22/2022. The heart i s enlarged noting atherosclerotic calcification of the thoracic aorta. There is pulmonary vascular co ngestion. Bilateral airspace opacities likely represent pulmonary edema. There are small pleural effu sions dependent consolidation. There is bilateral hilar enlargement. No pneumothorax is seen. The ske letal structures are osteopenic. The bony thorax is grossly intact. IMPRESSION: 1. Cardiomegaly with evidence of congestive failure. 2. Bilateral airspace opacities likely represent pulmonary edema. Correlate clinically for evidence o f a superimposed infectious/inflammatory pneumonitis. 3. Small pleural effusions with dependent consolidation. 4. Bilateral hilar enlargement may represent pulmonary hypertension and/or lymphadenopathy. This is s imilar to prior studies. ACT 112: Negative or not required by law. Electronically signed by: Bernabe Pressley M.D. 03/23/2022 9:00 AM
--- NOTE | 2022-03-23 10:13 | Cardiology Consultation ---
Date of Consultation March 23, 2022 Assessment & Plan (1) CHF (congestive heart failure): (2) Aortic stenosis: (3) COVID: Plan I think the patient's COVID infection and valvular heart disease have tipped her over into some heart failure. I believe her hypertension may be related to some anxiety but also to heart failure as well. I would treat her supportively for her COVID and utilize IV diuretics as needed. She is on multiple antihypertensive medications at home and I would work to bring her blood pressure down to a moderate level. I would not be too aggressive with lowering her blood pressure due to her aortic stenosis. We will follow along with you during her hospital stay. History of Present Illness Attending Physician: Marek Shen MD History of Present Illness The patient is a 77-year-old female well-known to me as I cared for her through my clinic for many years. Georgina has severe degenerative joint disease and severe kyphoscoliosis which have limited her mobility and she mostly travels in a wheelchair. She also has chronic pain syndrome including chronic atypical chest pain and previously she has had multiple heart catheterizations which have showed widely patent coronary anatomy. Over time, she has developed aortic stenosis and several years ago she planned to have an extensive back surgery to correct her scoliosis and after proceeding through her cardiac catheterization decided not to have the surgery done. At that time, the cardiac catheterization indicated the aortic valve to have moderate stenosis and her coronaries were widely patent. Once again, over the years she is slowly developed severe aortic stenosis which has not been symptomatic but she is not very mobile. Recently her had metastatic prostate cancer and she was reluctant to be evaluated for a KATRINA during his illness. He about 4 months ago and during her last clinic visit I arranged for her to be seen through the valve clinic as a possible KATRINA candidate. That appointment has not occurred yet. She presented to the emergency department not feeling well and was found to have COVID. Last evening after admission she did have an episode of shortness of breath with hypoxia. She was treated with oxygen and appropriately with IV Lasix. She seems to be comfortable today. She has no cardiac complaints currently. Allergies Allergy/AdvReac Type Severity Reaction Status Date / Time oxycodone AdvReac Intermediate "makes me Verified 10/01/20 01:44 go crazy" gabapentin AdvReac Mild cough Verified 10/01/20 01:44 ramipril AdvReac Mild cough Verified 10/01/20 01:44 Home Medications Medication Instructions Recorded Confirmed Type Al hyd-Mg tr-alg ac-sod bicarb 80 1 tab PO UD PRN Abdominal 07/01/19 03/23/22 History mg-14.2 mg chewable tablet Discomfort (Gaviscon) amlodipine 10 mg tablet 10 mg PO QAM 07/01/19 03/23/22 History cranberry concentrate-ascorbic 1 cap PO QPM 07/01/19 03/23/22 History acid 140 mg-100 mg capsule (Cranberry Plus Vitamin C) cyanocobalamin (vitamin B-12) 2,500 mcg PO QPM 07/01/19 03/23/22 History 2,500 mcg tablet docusate sodium 100 mg tablet 300 mg PO QPM 07/01/19 03/23/22 History (Stool Softener) hydrocodone 10 mg-acetaminophen 1 tab PO BID 07/01/19 03/23/22 History 325 mg tablet losartan 50 mg tablet 50 mg PO BID 07/01/19 03/23/22 History nitroglycerin 0.4 mg sublingual 0.4 mg sublingual UD PRN Angina 07/01/19 03/23/22 History tablet omeprazole 20 mg capsule,delayed 20 mg PO QAM 07/01/19 03/23/22 History release pravastatin 40 mg tablet 40 mg PO QAM 07/01/19 03/23/22 History aspirin 81 mg chewable tablet 81 mg PO DAILY 09/01/20 03/23/22 History carvedilol 6.25 mg tablet 6.25 mg PO BID #60 tabs 10/04/20 03/23/22 Rx hydralazine 25 mg tablet 75 mg PO TID #270 tabs 10/04/20 03/23/22 Rx torsemide 10 mg tablet 10 mg PO DAILY 03/23/22 03/23/22 History Patient History Medical History Aortic stenosis "moderately severe by echo September 2013" Chawla's esophagus Cardiac murmur Chronic back pain Chronic sialoadenitis CKD (chronic kidney disease) stage 3, GFR 30-59 ml/min Coronary artery disease "nonocclusive disease by cath [facility] [place] September 2013" Esophageal motility disorder "noted on barium swallow 10/2014" GERD (gastroesophageal reflux disease) History of esophageal dilatation Hyperlipidemia Hypertension Leaky heart valve per pt aorta--follows with Dr. Gonzáles Osteoarthritis Poor historian Surgical History History of appendectomy History of bilateral tubal ligation History of cardiac cath x3--last 12/2018 no stents History of carpal tunnel release of both wrists History of cholecystectomy History of colonoscopy History of esophagogastroduodenoscopy (EGD) History of hysterectomy History of lumbar spinal fusion History of lumpectomy cant remember which breast---benign fatty tissue History of sinus surgery History of tonsillectomy History of tooth extraction History of total left knee replacement (TKR) History of umbilical hernia repair Family History Other No family history of adverse response to anesthesia No family history of bleeding disorder Social History Smoking Status: Former smoker Second Hand Exposure: No; Do You Dip or Chew Tobacco: No; Tobacco Cessation Education Requested by Patient: No Hx Alcohol Use: No Hx Substance Use: No Preferred Language: Cambodian Communication Ability: Effective Associate 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 All other 10 point review of systems are negative. Physical Exam Physical Exam: General: no acute distress and stated age Head: normocephalic, no masses, lesions, tenderness or abnormalities Eyes: conjunctiva are pink and non-injected, sclera clear Neck: supple, no adenopathy, no bruits, normal jugular venous pulse, no hepatojugular reflux Chest: normal shape and normal respiratory effort Lungs: clear to auscultation and percussion Cardiac Exam: - regular rate & rhythm, systolic murmur- normal S1, normal S2 Pulses: 2(+) throughout Abdomen: abdomen soft, non-tender, no abnormal masses and no hepatosplenomegaly Musculoskeletal: no gait disturbance, no joint inflammation, no deforming arthritis Extremities: no edema and no cyanosis Neuro: grossly normal exam Results & Data ([facility]) Vital Signs (Past 12 Hours) Vital Signs Temp Pulse Pulse Resp BP BP Pulse Ox 03/23/22 09:00 58 L 23 151/54 H 97 03/23/22 08:30 61 22 167/67 H 97 03/23/22 08:20 62 23 177/71 H 97 03/23/22 08:37 03/23/22 08:20 36.8 C 64 19 177/71 H 98 03/23/22 07:00 65 24 97 03/23/22 06:50 71 24 96 03/23/22 06:45 75 14 95 03/23/22 06:30 68 21 97 03/23/22 06:30 67 22 170/78 H 97 03/23/22 06:00 65 22 172/56 H 96 03/23/22 05:30 182/74 H 03/23/22 05:00 66 22 176/74 H 96 03/23/22 04:30 64 22 165/65 H 95 03/23/22 04:01 78 22 182/81 H 95 03/23/22 03:30 70 16 96 03/23/22 03:30 187/58 H 03/23/22 03:25 197/71 H 03/23/22 03:25 70 27 H 93 03/23/22 03:20 70 28 H 94 03/23/22 03:20 197/70 H 03/23/22 03:16 193/50 H 03/23/22 03:16 76 21 99 03/23/22 03:10 67 27 H 99 03/23/22 03:10 195/70 H 03/23/22 03:05 72 24 199/74 H 95 03/23/22 03:00 72 24 200/83 H 94 03/23/22 02:55 83 22 202/67 H 93 03/23/22 03:29 37.1 C 70 18 187/58 H 96 03/23/22 02:51 79 24 200/60 H 93 03/23/22 02:47 76 24 196/72 H 93 03/23/22 02:45 76 24 214/92 H 95 03/23/22 02:40 70 25 H 216/95 H 96 03/23/22 02:35 73 25 H 211/76 H 96 03/23/22 02:30 66 25 H 216/71 H 95 03/23/22 02:25 64 23 209/63 H 94 03/23/22 02:20 65 26 H 164/61 H 90 03/23/22 02:11 64 25 H 142/67 H 87 L 03/23/22 02:14 142/67 H 03/23/22 02:10 73 28 H 174/66 H 88 L 03/23/22 02:06 75 26 H 208/96 H 90 03/23/22 02:00 72 26 H 208/79 H 92 03/23/22 01:30 75 24 213/79 H 92 03/23/22 01:00 77 22 207/81 H 91 03/23/22 00:57 81 24 205/98 H 92 03/23/22 00:30 72 24 214/71 H 95 03/23/22 00:00 72 25 H 196/79 H 92 03/23/22 00:37 88 L 03/22/22 23:30 69 18 192/70 H 93 03/22/22 23:00 75 18 180/86 H 92 O2 Del Method O2 Flow Rate 03/23/22 09:00 Nasal Cannula 2 03/23/22 08:30 Nasal Cannula 2 03/23/22 08:20 Nasal Cannula 2 03/23/22 08:37 Nasal Cannula 2 03/23/22 08:20 Room Air 03/23/22 07:00 03/23/22 06:50 03/23/22 06:45 03/23/22 06:30 03/23/22 06:30 3 03/23/22 06:00 3 03/23/22 05:30 03/23/22 05:00 3 03/23/22 04:30 3 03/23/22 04:01 3 03/23/22 03:30 03/23/22 03:30 03/23/22 03:25 03/23/22 03:25 03/23/22 03:20 03/23/22 03:20 03/23/22 03:16 03/23/22 03:16 03/23/22 03:10 03/23/22 03:10 03/23/22 03:05 Nebulizer 03/23/22 03:00 3 03/23/22 02:55 3 03/23/22 03:29 Nasal Cannula 3 03/23/22 02:51 3 03/23/22 02:47 3 03/23/22 02:45 3 03/23/22 02:40 3 03/23/22 02:35 3 03/23/22 02:30 3 03/23/22 02:25 4 03/23/22 02:20 4 03/23/22 02:11 Nasal Cannula 4 03/23/22 02:14 03/23/22 02:10 4 03/23/22 02:06 4 03/23/22 02:00 3 03/23/22 01:30 3 03/23/22 01:00 2 03/23/22 00:57 2 03/23/22 00:30 2 03/23/22 00:00 2 03/23/22 00:37 Room Air, Nasal Cannula 0 03/22/22 23:30 03/22/22 23:00 Laboratory Results Laboratory Results - last 24 hr 03/22/22 03/22/22 03/22/22 18:35 18:35 18:35 WBC 3.57 L RBC 3.78 L Hgb 10.7 L Hct 33.4 L MCV 88.4 MCH 28.3 MCHC 32.0 RDW Std Deviation 40.8 RDW Coeff of Breanne 12.7 Plt Count 235 MPV 10.4 Immature Gran % (Auto) 0.3 Neut % (Auto) 64.9 Lymph % (Auto) 10.4 [place] % (Auto) 21.0 Eos % (Auto) 2.0 Baso % (Auto) 1.4 Neut # (Auto) 2.32 Lymph # (Auto) 0.37 L [place] # (Auto) 0.75 Eos # (Auto) 0.07 Baso # (Auto) 0.05 Immature Gran # (Auto) 0.01 APTT PTT Ratio Sodium 139 Potassium 4.7 Chloride 102 Carbon Dioxide 27 Anion Gap 10 BUN 41 H Creatinine 1.30 H Est Cr Clr Drug Dosing Not Reportable Est GFR ( Amer) 45.2 Est GFR (Non-Af Amer) 39.0 BUN/Creatinine Ratio 31.5 H Glucose 110 H Calcium 9.7 Magnesium 1.9 Total Bilirubin 0.5 AST 23 ALT 8 Alkaline Phosphatase 70 Troponin I High Sens 68.2 H* Total Protein 7.9 Albumin 4.1 Globulin 3.8 Albumin/Globulin Ratio 1.1 Lipase 27 TSH 0.976 Urine Color Urine Appearance Urine pH Ur Specific [place] Urine Protein Urine Glucose (UA) Urine Ketones Urine Blood Urine Nitrite Urine Bilirubin Urine Urobilinogen Ur Leukocyte Esterase Urine WBC (Auto) Urine RBC (Auto) U Hyaline Cast (Auto) U Epithel Cells (Auto) Urine Bacteria (Auto) Lyme Disease IgG Ab Lyme Disease IgM Ab SARS-CoV-2 (PCR) Influenza Type A (PCR) Influenza Type B (PCR) RSV (RT-PCR) 03/22/22 03/22/22 03/22/22 18:35 19:33 21:43 WBC RBC Hgb Hct MCV MCH MCHC RDW Std Deviation RDW Coeff of Breanne Plt Count MPV Immature Gran % (Auto) Neut % (Auto) Lymph % (Auto) [place] % (Auto) Eos % (Auto) Baso % (Auto) Neut # (Auto) Lymph # (Auto) [place] # (Auto) Eos # (Auto) Baso # (Auto) Immature Gran # (Auto) APTT 29.3 PTT Ratio 1.1 Sodium Potassium Chloride Carbon Dioxide Anion Gap BUN Creatinine Est Cr Clr Drug Dosing Est GFR ( Amer) Est GFR (Non-Af Amer) BUN/Creatinine Ratio Glucose Calcium Magnesium Total Bilirubin AST ALT Alkaline Phosphatase Troponin I High Sens Total Protein Albumin Globulin Albumin/Globulin Ratio Lipase TSH Urine Color Urine Appearance Urine pH Ur Specific [place] Urine Protein Urine Glucose (UA) Urine Ketones Urine Blood Urine Nitrite Urine Bilirubin Urine Urobilinogen Ur Leukocyte Esterase Urine WBC (Auto) Urine RBC (Auto) U Hyaline Cast (Auto) U Epithel Cells (Auto) Urine Bacteria (Auto) Lyme Disease IgG Ab Negative Lyme Disease IgM Ab Negative SARS-CoV-2 (PCR) POSITIVE A* Influenza Type A (PCR) Negative Influenza Type B (PCR) Negative RSV (RT-PCR) Negative 03/22/22 03/22/22 03/23/22 21:43 23:25 01:39 WBC RBC Hgb Hct MCV MCH MCHC RDW Std Deviation RDW Coeff of Breanne Plt Count MPV Immature Gran % (Auto) Neut % (Auto) Lymph % (Auto) [place] % (Auto) Eos % (Auto) Baso % (Auto) Neut # (Auto) Lymph # (Auto) [place] # (Auto) Eos # (Auto) Baso # (Auto) Immature Gran # (Auto) APTT PTT Ratio Sodium Potassium Chloride Carbon Dioxide Anion Gap BUN Creatinine Est Cr Clr Drug Dosing Est GFR ( Amer) Est GFR (Non-Af Amer) BUN/Creatinine Ratio Glucose Calcium Magnesium Total Bilirubin AST ALT Alkaline Phosphatase Troponin I High Sens 93.5 H* D 114.2 H* D Total Protein Albumin Globulin Albumin/Globulin Ratio Lipase TSH Urine Color Yellow Urine Appearance Cloudy A Urine pH 5.5 Ur Specific [place] 1.016 Urine Protein 3+ H Urine Glucose (UA) Negative Urine Ketones Negative Urine Blood Trace H Urine Nitrite Negative Urine Bilirubin Negative Urine Urobilinogen Negative Ur Leukocyte Esterase 2+ H Urine WBC (Auto) >30 H Urine RBC (Auto) 0-4 U Hyaline Cast (Auto) 1-5 U Epithel Cells (Auto) 0-5 Urine Bacteria (Auto) 4+ H Lyme Disease IgG Ab Lyme Disease IgM Ab SARS-CoV-2 (PCR) Influenza Type A (PCR) Influenza Type B (PCR) RSV (RT-PCR) 03/23/22 03/23/22 03/23/22 05:40 05:40 05:40 WBC 3.69 L RBC 3.65 L Hgb 10.5 L Hct 32.6 L MCV 89.3 MCH 28.8 MCHC 32.2 RDW Std Deviation 41.5 RDW Coeff of Breanne 12.7 Plt Count 191 MPV 10.7 Immature Gran % (Auto) 0.5 Neut % (Auto) 66.2 Lymph % (Auto) 15.4 [place] % (Auto) 17.3 Eos % (Auto) 0.3 Baso % (Auto) 0.3 Neut # (Auto) 2.44 Lymph # (Auto) 0.57 L [place] # (Auto) 0.64 Eos # (Auto) 0.01 Baso # (Auto) 0.01 Immature Gran # (Auto) 0.02 APTT PTT Ratio Sodium 139 Potassium 3.8 Chloride 106 Carbon Dioxide 23 Anion Gap 10 BUN 40 H Creatinine 1.21 H Est Cr Clr Drug Dosing 37.3 Est GFR ( Amer) 49.3 Est GFR (Non-Af Amer) 42.5 BUN/Creatinine Ratio 33.1 H Glucose 99 Calcium 8.6 Magnesium Total Bilirubin AST ALT Alkaline Phosphatase Troponin I High Sens 139.5 H* D Total Protein Albumin Globulin Albumin/Globulin Ratio Lipase TSH Urine Color Urine Appearance Urine pH Ur Specific [place] Urine Protein Urine Glucose (UA) Urine Ketones Urine Blood Urine Nitrite Urine Bilirubin Urine Urobilinogen Ur Leukocyte Esterase Urine WBC (Auto) Urine RBC (Auto) U Hyaline Cast (Auto) U Epithel Cells (Auto) Urine Bacteria (Auto) Lyme Disease IgG Ab Lyme Disease IgM Ab SARS-CoV-2 (PCR) Influenza Type A (PCR) Influenza Type B (PCR) RSV (RT-PCR) Medications Administered Current Inpatient Medications Acetaminophen (Acetaminophen 325 Mg Tab) 650 mg PO Q4H PRN PRN Reason: Pain or Fever Stop: 04/22/22 02:10 Hydrocodone Bitart/Acetaminophen (Hydrocodone/Acetamophen 5/325mg Tab) 1 tab PO QID PRN PRN Reason: Pain Stop: 04/05/22 23:02 Amlodipine Besylate (Amlodipine Besylate 5 Mg Tab) 10 mg PO QAM MELLISA Stop: 04/22/22 02:59 Last Admin: 03/23/22 08:26 Dose: 10 mg Aspirin (Aspirin 81 Mg Chew) 81 mg PO DAILY MELLISA Stop: 04/22/22 08:59 Last Admin: 03/23/22 08:26 Dose: 81 mg Carvedilol (Carvedilol 6.25 Mg Tab) 6.25 mg PO BID MELLISA Stop: 04/22/22 06:04 Last Admin: 03/23/22 08:26 Dose: 6.25 mg Docusate Sodium (Docusate Sodium 100 Mg Cap) 100 mg PO QPM MELLISA Stop: 04/22/22 20:59 Guaifenesin (Guaifenesin 600 Mg Tabcr) 600 mg PO Q12 MELLISA Stop: 04/22/22 08:59 Last Admin: 03/23/22 08:30 Dose: 600 mg Heparin Sodium (Porcine) (Heparin Sod 5,000 Unit/0.5 Ml Vial) 5,000 units SQ Q8 MELLISA Stop: 04/22/22 05:59 Last Admin: 03/23/22 06:27 Dose: 5,000 units Hydralazine HCl (Hydralazine Hcl 25 Mg Tab) 75 mg PO TID MELLISA Stop: 04/22/22 08:59 Last Admin: 03/23/22 08:25 Dose: 75 mg Hydromorphone HCl (Hydromorphone Inj 0.5 Mg/0.5 Ml Syr) 0.25 mg IV Q6H PRN PRN Reason: Pain Stop: 04/05/22 23:02 Promethazine HCl 6.25 mg/ (Sodium Chloride) 50.25 mls @ 201 mls/hr IV Q6H PRN PRN Reason: Nausea And Vomiting Stop: 04/21/22 22:57 Losartan Potassium (Losartan Potassium 50 Mg Tab) 50 mg PO BID [facility] Stop: 04/22/22 08:59 Last Admin: 03/23/22 08:25 Dose: 50 mg Nitroglycerin (Nitroglycerin Sl 0.4 Mg/Tab Tab) 0.4 mg SL UD PRN PRN Reason: Chest Pain Stop: 04/22/22 02:10 Pantoprazole Sodium (Pantoprazole 40 Mg Tab) 40 mg PO [facility] Stop: 04/22/22 08:59 Last Admin: 03/23/22 08:24 Dose: 40 mg Pravastatin Sodium (Pravastatin Sod 40 Mg Tab) 40 mg PO [facility] Stop: 04/22/22 08:59 Last Admin: 03/23/22 08:27 Dose: 40 mg Torsemide ([facility]semide 10 Mg Tab) [facility] [place] Stop: 04/22/22 08:59 Last Admin: 03/23/22 08:27 Dose: 10 mg
[2022-03-23] MEDS ORDERED: FUROSEMIDE INJ 20 MG/2 ML VIAL IV ONE (14:43)
[2022-03-23] MEDS ORDERED: FUROSEMIDE INJ 20 MG/2 ML VIAL IV SCH (14:43)
--- NOTE | 2022-03-23 14:59 | Hospitalist Progress Note ---
Date of Service March 23, 2022 Assessment & Plan (1) Hypertensive crisis: (2) COVID: (3) Aortic stenosis: (4) Acute exacerbation of congestive heart failure: Plan Patient is a 77-year-old female with past medical history of diastolic heart failure, severe , chronic pain, SHEA presented to the ED with complaints of chest pain, headache and shortness of breath. Patient was found to be in hypertensive crisis; admitted to telemetry for further care. She was also found to have pulmonary edema. She was also found to have COVID-19 infection. Her last echo showed EF of 60 to 65% with diastolic dysfunction. Hypertensive urgency Acute exacerbation of diastolic heart failure Severe COVID-19 infection Blood pressure improved compared to presentation on her home regimen. Troponin uptrending to 170. Chest x-ray consistent for pulmonary edema EKGnormal sinus rhythm LVH present Plan; Continue on current antihypertensive(amlodipine, Coreg, losartan and hydralazine). We will continue diuresis for now with Lasix 20 mg once daily.Strict JUMA's and daily weights --Continue telemetry monitoring -Patient currently asymptomatic from COVID-19 infection; will continue to monitor for increasing oxygen requirement -PT OT DVTHeparin CODE STATUSDNR/DNI Admission and Anticipated Discharge Date Admission Date: March 23, 2022 Subjective Patient seen and examined at bedside. Patient feels that her breathing is overall better compared to the presentation. She still has some chest pain but it has decreased in intensity compared to her presentation. Review of Systems Review of Systems: All systems reviewed & are unremarkable except as noted in Subjective Physical Exam Physical Exam: Constitutional: Alert, oriented x3 Respiratory: Bilateral crackles present; left greater than right Cardiovascular: RRR, no murmur, no edema Vessels: no JVD or carotid bruit Chest: normal inspection of chest Abdomen: normal bowel sounds, soft, nontender, no hepatosplenomegaly Musculoskeletal: no cyanosis or clubbing, extremities motor strength 5/5 Skin: 1+ pitting edema present Neurologic: PERRL, EOMI, accommodation nl, no face palsy, no dysarthria CN's II- XI intact bilaterally and moves all extremities Psychiatric: A+Ox3, euthymic affect Lymphatic: no cervical or axillary lymphadenopathy : deferred Results & Data Results & Data ([facility]) Vital Signs (Past 12 Hours) Vital Signs Temp Pulse Pulse Resp BP BP Pulse Ox 03/23/22 14:00 98 03/23/22 14:00 140/108 H 03/23/22 13:50 98 03/23/22 13:47 60 16 98 03/23/22 13:47 145/67 H 03/23/22 13:40 66 17 99 03/23/22 13:31 167/84 H 03/23/22 13:31 60 23 100 03/23/22 13:30 60 18 98 03/23/22 13:20 60 23 97 03/23/22 13:10 59 L 22 98 03/23/22 13:01 53 L 25 H 99 03/23/22 13:01 149/52 H 03/23/22 13:00 52 L 22 98 03/23/22 12:50 53 L 20 98 03/23/22 12:40 53 L 22 98 03/23/22 12:30 52 L 21 98 03/23/22 12:30 128/51 L 03/23/22 12:20 53 L 22 98 03/23/22 12:10 53 L 24 98 03/23/22 12:00 53 L 23 98 03/23/22 12:00 152/55 H 03/23/22 11:50 53 L 21 98 03/23/22 11:40 53 L 18 97 03/23/22 11:30 52 L 23 97 03/23/22 11:30 129/45 L 03/23/22 11:20 53 L 22 97 03/23/22 11:10 54 L 23 97 03/23/22 11:00 56 L 21 97 03/23/22 11:00 152/46 H 03/23/22 10:50 54 L 23 97 03/23/22 10:40 55 L 23 97 03/23/22 10:30 56 L 21 96 03/23/22 10:30 149/51 H 03/23/22 10:20 60 21 97 03/23/22 10:10 56 L 23 97 03/23/22 13:53 03/23/22 10:00 58 L 22 154/60 H 97 03/23/22 09:30 61 21 180/62 H 97 03/23/22 09:00 58 L 23 151/54 H 97 03/23/22 08:30 61 22 167/67 H 97 03/23/22 08:20 62 23 177/71 H 97 03/23/22 08:37 03/23/22 08:20 36.8 C 64 19 177/71 H 98 03/23/22 07:00 65 24 97 03/23/22 06:50 71 24 96 03/23/22 06:45 75 14 95 03/23/22 06:30 68 21 97 03/23/22 06:30 67 22 170/78 H 97 03/23/22 06:00 65 22 172/56 H 96 03/23/22 05:30 182/74 H 03/23/22 05:00 66 22 176/74 H 96 03/23/22 04:30 64 22 165/65 H 95 03/23/22 04:01 78 22 182/81 H 95 03/23/22 03:30 70 16 96 03/23/22 03:30 187/58 H 03/23/22 03:25 197/71 H 03/23/22 03:25 70 27 H 93 03/23/22 03:20 70 28 H 94 03/23/22 03:20 197/70 H 03/23/22 03:16 193/50 H 03/23/22 03:16 76 21 99 03/23/22 03:10 67 27 H 99 03/23/22 03:10 195/70 H 03/23/22 03:05 72 24 199/74 H 95 03/23/22 03:00 72 24 200/83 H 94 03/23/22 02:55 83 22 202/67 H 93 03/23/22 03:29 37.1 C 70 18 187/58 H 96 03/23/22 02:51 79 24 200/60 H 93 Pulse Ox Pulse Ox Pulse Ox O2 Del Method O2 Flow Rate O2 Flow Rate O2 Flow Rate 03/23/22 14:00 03/23/22 14:00 03/23/22 13:50 03/23/22 13:47 03/23/22 13:47 03/23/22 13:40 03/23/22 13:31 03/23/22 13:31 03/23/22 13:30 03/23/22 13:20 03/23/22 13:10 03/23/22 13:01 03/23/22 13:01 03/23/22 13:00 03/23/22 12:50 03/23/22 12:40 03/23/22 12:30 03/23/22 12:30 03/23/22 12:20 03/23/22 12:10 03/23/22 12:00 03/23/22 12:00 03/23/22 11:50 03/23/22 11:40 03/23/22 11:30 03/23/22 11:30 03/23/22 11:20 03/23/22 11:10 03/23/22 11:00 03/23/22 11:00 03/23/22 10:50 03/23/22 10:40 03/23/22 10:30 03/23/22 10:30 03/23/22 10:20 03/23/22 10:10 03/23/22 13:53 93 98 95 2 2 03/23/22 10:00 Room Air 03/23/22 09:30 Room Air 03/23/22 09:00 Nasal Cannula 2 03/23/22 08:30 Nasal Cannula 2 03/23/22 08:20 Nasal Cannula 2 03/23/22 08:37 Nasal Cannula 2 03/23/22 08:20 Room Air 03/23/22 07:00 03/23/22 06:50 03/23/22 06:45 03/23/22 06:30 03/23/22 06:30 3 03/23/22 06:00 3 03/23/22 05:30 03/23/22 05:00 3 03/23/22 04:30 3 03/23/22 04:01 3 03/23/22 03:30 03/23/22 03:30 03/23/22 03:25 03/23/22 03:25 03/23/22 03:20 03/23/22 03:20 03/23/22 03:16 03/23/22 03:16 03/23/22 03:10 03/23/22 03:10 03/23/22 03:05 Nebulizer 03/23/22 03:00 3 03/23/22 02:55 3 03/23/22 03:29 Nasal Cannula 3 03/23/22 02:51 3 O2 Flow Rate 03/23/22 14:00 03/23/22 14:00 03/23/22 13:50 03/23/22 13:47 03/23/22 13:47 03/23/22 13:40 03/23/22 13:31 03/23/22 13:31 03/23/22 13:30 03/23/22 13:20 03/23/22 13:10 03/23/22 13:01 03/23/22 13:01 03/23/22 13:00 03/23/22 12:50 03/23/22 12:40 03/23/22 12:30 03/23/22 12:30 03/23/22 12:20 03/23/22 12:10 03/23/22 12:00 03/23/22 12:00 03/23/22 11:50 03/23/22 11:40 03/23/22 11:30 03/23/22 11:30 03/23/22 11:20 03/23/22 11:10 03/23/22 11:00 03/23/22 11:00 03/23/22 10:50 03/23/22 10:40 03/23/22 10:30 03/23/22 10:30 03/23/22 10:20 03/23/22 10:10 03/23/22 13:53 0 03/23/22 10:00 03/23/22 09:30 03/23/22 09:00 03/23/22 08:30 03/23/22 08:20 03/23/22 08:37 03/23/22 08:20 03/23/22 07:00 03/23/22 06:50 03/23/22 06:45 03/23/22 06:30 03/23/22 06:30 03/23/22 06:00 03/23/22 05:30 03/23/22 05:00 03/23/22 04:30 03/23/22 04:01 03/23/22 03:30 03/23/22 03:30 03/23/22 03:25 03/23/22 03:25 03/23/22 03:20 03/23/22 03:20 03/23/22 03:16 03/23/22 03:16 03/23/22 03:10 03/23/22 03:10 03/23/22 03:05 03/23/22 03:00 03/23/22 02:55 03/23/22 03:29 03/23/22 02:51
[2022-03-23] MEDS: ACETAMINOPHEN 325 MG TAB PO PRN (15:23)
--- NOTE | 2022-03-23 17:52 | Electrocardiogram Report ---
Test Reason : Blood Pressure : / mmHG Vent. Rate : 075 BPM Atrial Rate : 075 BPM P-R Int : 200 ms QRS Dur : 106 ms QT Int : 408 ms P-R-T Axes : 081 -12 085 degrees QTc Int : 455 ms Poor data quality, interpretation may be adversely affected Normal sinus rhythm Abnormal ECG When compared with ECG of 22-MAR-2022 19:27, (unconfirmed) (RBBB and left anterior fascicular block) is no longer Present Confirmed by Philipp Shannon ([id number] on 03/23/2022 5:51:29 PM Referred By: REFERRED SELF Confirmed By:Wander Shannon
--- NOTE | 2022-03-23 17:55 | Electrocardiogram Report ---
Test Reason : Blood Pressure : / mmHG Vent. Rate : 077 BPM Atrial Rate : 077 BPM P-R Int : 154 ms QRS Dur : 148 ms QT Int : 412 ms P-R-T Axes : -15 -47 040 degrees QTc Int : 466 ms Poor data quality, interpretation may be adversely affected Normal sinus rhythm Right bundle branch block Left anterior fascicular block Bifascicular block Minimal voltage criteria for LVH, may be normal variant Anteroseptal infarct (cited on or before 30-SEP-2020) Abnormal ECG When compared with ECG of 30-SEP-2020 22:22, (RBBB and left anterior fascicular block) is now Present Confirmed by Philipp Shannon ([id number]) on 03/23/2022 5:55:18 PM Referred By: REFERRED SELF Confirmed By:Wander Shannon
[2022-03-23] MEDS ORDERED: PNEUMOCOCCAL POLYSACCHARIDES 25 MCG/0.5 ML VIAL/SYR IM ONE (19:03)
[2022-03-23] MEDS: DOCUSATE SODIUM 100 MG CAP PO SCH (20:54)
[2022-03-23] MEDS: MELATONIN 3 MG TAB PO PRN (22:39)
[2022-03-24] MEDS: BENZONATATE 100 MG CAPSULE PO PRN ×3 (02:01→20:50)
[2022-03-24] MEDS: HEPARIN SOD 5,000 UNIT/0.5 ML VIAL SQ SCH ×3 (05:00→20:46)
[2022-03-24 07:34] LABS: Albumin Globulin Ratio 1.2 (0.9-2); Albumin Level 3.2 gm/dl (3.4-5.0); Bilirubin,Total 0.3 mg/dl (0.2-1.0); Calcium 8.3 mg/dl (8.5-10.1); Creatinine Clr Calc Pharmacy 29.5 ml/min; Est GFR (Non-African American) 32.8 ml/min; Globulin 2.7 gm/dl (2.5-4.0); Potassium 3.7 mmol/L (3.5-5.1); Total Protein 5.9 gm/dl (6.0-8.3)
[2022-03-24] MEDS ORDERED: COUGH DROP (SUGAR FREE) LOZ 24 LOZ/1 BOX BUCCAL PRN (08:59)
[2022-03-24] MEDS: LOSARTAN POTASSIUM 50 MG TAB PO SCH ×2 (09:09→20:45)
[2022-03-24] MEDS: PRAVASTATIN SOD 40 MG TAB PO SCH (09:09)
[2022-03-24] MEDS: PANTOprazole 40 MG TAB PO SCH (09:09)
[2022-03-24] MEDS: hydrALAZINE HCL 25 MG TAB PO SCH ×3 (09:09→20:45)
[2022-03-24] MEDS: ACETAMINOPHEN 325 MG TAB PO PRN ×2 (09:10→20:50)
[2022-03-24] MEDS: ASPIRIN 81 MG CHEW PO SCH (09:13)
[2022-03-24] MEDS: carvediloL 6.25 MG TAB PO SCH ×2 (09:13→20:45)
--- NOTE | 2022-03-24 10:45 | Cardiology Progress Note ---
Date of Service March 24, 2022 Assessment & Plan (1) CHF (congestive heart failure): (2) Aortic stenosis: (3) COVID: Plan The patient appears comfortable. I believe that her high-sensitivity troponin elevation was due to strain. The currently she is out of congestive heart janette lure. I think be reasonable to start discharge planning but consider that she may be living by herself and may need a little extra help. If she is discharged I will arrange follow-up with our practice. Admission and Anticipated Discharge Date Admission Date: March 23, 2022 Subjective The patient had some coughing through the night but overall her night was uneventful. Review of Systems Review of Systems: Review of Systems: See HPI for pertinent positives. All other 10 point review of systems are negative. Physical Exam 2 Physical Exam: General: no acute distress and stated age Head: normocephalic, no masses, lesions, tenderness or abnormalities Eyes: conjunctiva are pink and non-injected, sclera clear Neck: supple, no adenopathy, no bruits, normal jugular venous pulse, no hepatojugular reflux Chest: normal shape and normal respiratory effort Lungs: clear to auscultation and percussion Cardiac Exam: - regular rate & rhythm, systolic murmur- normal S1, normal S2 Pulses: 2(+) throughout Abdomen: abdomen soft, non-tender, no abnormal masses and no hepatosplenomegaly Musculoskeletal: no gait disturbance, no joint inflammation, no deforming arthritis Extremities: no edema and no cyanosis Neuro: grossly normal exam Results & Data ([facility]) Vital Signs (Past 12 Hours) Vital Signs Temp Pulse Pulse Resp BP BP Pulse Ox 03/24/22 08:00 56 L 03/24/22 08:08 36.4 C L 53 L 16 145/59 H 96 03/24/22 08:04 03/24/22 07:00 37 C 51 L 20 173/60 H 97 03/24/22 04:00 37.2 C 55 L 20 151/68 H 97 O2 Del Method O2 Flow Rate 03/24/22 08:00 03/24/22 08:08 Nasal Cannula 1 03/24/22 08:04 Room Air 03/24/22 07:00 Nasal Cannula 2 03/24/22 04:00 Nasal Cannula 215 Laboratory Results Laboratory Results - last 24 hr 03/23/22 03/23/22 03/23/22 10:13 15:16 15:16 Sodium Potassium Chloride Carbon Dioxide Anion Gap BUN Creatinine Est Cr Clr Drug Dosing Est GFR ( Amer) Est GFR (Non-Af Amer) BUN/Creatinine Ratio Glucose Calcium Total Bilirubin AST ALT Alkaline Phosphatase Troponin I High Sens 170.0 H* D 173.7 H* B-Natriuretic Peptide 1536 H Total Protein Albumin Globulin Albumin/Globulin Ratio 03/23/22 03/24/22 21:07 06:18 Sodium 134 L Potassium 3.7 Chloride 101 Carbon Dioxide 25 Anion Gap 8 BUN 45 H Creatinine 1.50 H Est Cr Clr Drug Dosing 29.5 Est GFR ( Amer) 38.0 Est GFR (Non-Af Amer) 32.8 BUN/Creatinine Ratio 30.0 H Glucose 85 Calcium 8.3 L Total Bilirubin 0.3 AST 21 ALT 8 Alkaline Phosphatase 56 Troponin I High Sens 147.4 H* B-Natriuretic Peptide Total Protein 5.9 L D Albumin 3.2 L Globulin 2.7 Albumin/Globulin Ratio 1.2 Medications Administered Current Inpatient Medications Acetaminophen (Acetaminophen 325 Mg Tab) 650 mg PO Q4H PRN PRN Reason: Pain or Fever Stop: 04/22/22 02:10 Last Admin: 03/24/22 09:10 Dose: 650 mg Hydrocodone Bitart/Acetaminophen (Hydrocodone/Acetamophen 5/325mg Tab) 1 tab PO QID PRN PRN Reason: Pain Stop: 04/05/22 23:02 Amlodipine Besylate (Amlodipine Besylate 5 Mg Tab) 10 mg PO QAM [facility] Stop: 04/22/22 02:59 Last Admin: 03/23/22 08:26 Dose: 10 mg Aspirin (Aspirin 81 Mg Chew) 81 mg PO DAILY MELLISA Stop: 04/22/22 08:59 Last Admin: 03/24/22 09:13 Dose: 81 mg Benzonatate (Benzonatate 100 Mg Capsule) 100 mg PO Q8 PRN PRN Reason: Cough Stop: 04/23/22 01:30 Last Admin: 03/24/22 09:10 Dose: 100 mg Carvedilol (Carvedilol 6.25 Mg Tab) 6.25 mg PO BID [facility] Stop: 04/22/22 06:04 Last Admin: 03/24/22 09:13 Dose: Not Given Docusate Sodium (Docusate Sodium 100 Mg Cap) 100 mg PO QPM MELLISA Stop: 04/22/22 20:59 Last Admin: 03/23/22 20:54 Dose: Not Given Guaifenesin (Guaifenesin 600 Mg Tabcr) 600 mg PO Q12 MELLISA Stop: 04/22/22 08:59 Last Admin: 03/23/22 20:54 Dose: 600 mg Heparin Sodium (Porcine) (Heparin Sod 5,000 Unit/0.5 Ml Vial) 5,000 units SQ Q8 MELLISA Stop: 04/22/22 05:59 Last Admin: 03/24/22 05:00 Dose: Not Given Hydralazine HCl (Hydralazine Hcl 25 Mg Tab) 75 mg PO TID [facility] Stop: 04/22/22 08:59 Last Admin: 03/24/22 09:09 Dose: 75 mg Hydromorphone HCl (Hydromorphone Inj 0.5 Mg/0.5 Ml Syr) 0.25 mg IV Q6H PRN PRN Reason: Pain Stop: 04/05/22 23:02 Promethazine HCl 6.25 mg/ (Sodium Chloride) 50.25 mls @ 201 mls/hr IV Q6H PRN PRN Reason: Nausea And Vomiting Stop: 04/21/22 22:57 Losartan Potassium (Losartan Potassium 50 Mg Tab) 50 mg PO BID [facility] Stop: 04/22/22 08:59 Last Admin: 03/24/22 09:09 Dose: 50 mg Melatonin (Melatonin 3 Mg Tab) 3 mg PO HS PRN PRN Reason: Sleep Stop: 04/22/22 21:04 Last Admin: 03/23/22 22:39 Dose: 3 mg Menthol (Cough Drop (Sugar Free) Janett 24 Janett/1 Box) 1 janett BUCCAL PRN PRN PRN Reason: Sore Throat Stop: 04/23/22 08:58 Nitroglycerin (Nitroglycerin Sl 0.4 Mg/Tab Tab) 0.4 mg SL UD PRN PRN Reason: Chest Pain Stop: 04/22/22 02:10 Pantoprazole Sodium (Pantoprazole 40 Mg Tab) 40 mg PO QAM [facility] Stop: 04/22/22 08:59 Last Admin: 03/24/22 09:09 Dose: 40 mg Pravastatin Sodium (Pravastatin Sod 40 Mg Tab) 40 mg PO QAM [facility] Stop: 04/22/22 08:59 Last Admin: 03/24/22 09:09 Dose: 40 mg
[2022-03-24] MEDS: guaiFENesin 600 MG TABCR PO SCH ×2 (11:06→20:45)
[2022-03-24] MEDS ORDERED: FUROSEMIDE INJ 20 MG/2 ML VIAL IV ONE (14:10)
--- NOTE | 2022-03-24 14:14 | Hospitalist Progress Note ---
Date of Service March 24, 2022 Assessment & Plan (1) Hypertensive crisis: (2) COVID: (3) Aortic stenosis: (4) Acute exacerbation of congestive heart failure: Plan Patient is a 77-year-old female with past medical history of diastolic heart failure, severe , chronic pain, SHEA presented to the ED with complaints of chest pain, headache and shortness of breath. Patient was found to be in hypertensive crisis; admitted to telemetry for further care. She was also found to have pulmonary edema. She was also found to have COVID-19 infection. Her last echo showed EF of 60 to 65% with diastolic dysfunction. Hypertensive urgency Acute exacerbation of diastolic heart failure Severe COVID-19 infection Demand ischemia Blood pressure improved compared to presentation on her home regimen. Troponin up trended to 117 down trended. Chest x-ray consistent for pulmonary edema EKGnormal sinus rhythm LVH present BNP elevated to 1500 Plan; Continue on current antihypertensive(amlodipine, Coreg, losartan and hydralazine). We will continue diuresis for now with Lasix 20 mg once daily. Strict JUMA's and daily weights --Continue telemetry monitoring -Patient currently asymptomatic from COVID-19 infection; will continue to monitor for increasing oxygen requirement -PT OT DVTHeparin CODE STATUSDNR/DNI Dispopatient lives alone; her son Olu lives across the street and regularly checks up on her. She wants to go back home. Discussed with her son Olu at bedside. Admission and Anticipated Discharge Date Admission Date: March 23, 2022 Subjective Patient seen and examined at bedside. She is on room air currently; feels that her breathing is much better compared to presentation. Telemetry shows sinus bradycardia; no pauses. Review of Systems Review of Systems: All systems reviewed & are unremarkable except as noted in Subjective Physical Exam Physical Exam: Constitutional: Alert, oriented x3 Respiratory: Bilateral crackles present; left greater than right Cardiovascular: RRR, no murmur, no edema Vessels: no JVD or carotid bruit Chest: normal inspection of chest. Abdomen: normal bowel sounds, soft, nontender, no hepatosplenomegaly Musculoskeletal: no cyanosis or clubbing, extremities motor strength 5/5 Skin: 1+ pitting edema present Neurologic: PERRL, EOMI, accommodation nl, no face palsy, no dysarthria CN's II- XI intact bilaterally and moves all extremities Psychiatric: A+Ox3, euthymic affect Lymphatic: no cervical or axillary lymphadenopathy : deferred Results & Data Results & Data ([facility]) Vital Signs (Past 12 Hours) Vital Signs Temp Pulse Pulse Resp BP BP Pulse Ox 03/24/22 13:35 142/45 H 03/24/22 11:05 36.8 C 49 L 16 129/40 L 95 03/24/22 08:00 56 L 03/24/22 08:08 36.4 C L 53 L 16 145/59 H 96 03/24/22 08:04 03/24/22 07:00 37 C 51 L 20 173/60 H 97 03/24/22 04:00 37.2 C 55 L 20 151/68 H 97 O2 Del Method O2 Flow Rate 03/24/22 13:35 03/24/22 11:05 Nasal Cannula 1 03/24/22 08:00 03/24/22 08:08 Nasal Cannula 1 03/24/22 08:04 Room Air 03/24/22 07:00 Nasal Cannula 2 03/24/22 04:00 Nasal Cannula 215 Laboratory Results Laboratory Results WBC 3.69 K/ul (4.8-10.8) L 03/23/22 05:40 RBC 3.65 M/uL (3.93-5.22) L 03/23/22 05:40 Hgb 10.5 g/dl (12.0-16.0) L 03/23/22 05:40 Hct 32.6 % (34.1-44.9) L 03/23/22 05:40 MCV 89.3 fL (80.0-100.0) 03/23/22 05:40 MCH 28.8 pg (25.0-34.0) 03/23/22 05:40 MCHC 32.2 g/dL (32.0-36.0) 03/23/22 05:40 RDW Std Deviation 41.5 fL (36.4-46.3) 03/23/22 05:40 RDW Coeff of Breanne 12.7 % (11.5-14.5) 03/23/22 05:40 Plt Count 191 K/uL (130-400) 03/23/22 05:40 MPV 10.7 fL (9.4-12.3) 03/23/22 05:40 Immature Gran % (Auto) 0.5 % 03/23/22 05:40 Neut % (Auto) 66.2 % 03/23/22 05:40 Lymph % (Auto) 15.4 % 03/23/22 05:40 [place] % (Auto) 17.3 % 03/23/22 05:40 Eos % (Auto) 0.3 % 03/23/22 05:40 Baso % (Auto) 0.3 % 03/23/22 05:40 Neut # (Auto) 2.44 K/uL (1.4-6.5) 03/23/22 05:40 Lymph # (Auto) 0.57 K/uL (1.2-3.4) L 03/23/22 05:40 [place] # (Auto) 0.64 K/uL (0.24-0.82) 03/23/22 05:40 Eos # (Auto) 0.01 K/uL (0-0.50) 03/23/22 05:40 Baso # (Auto) 0.01 K/uL (0-0.2) 03/23/22 05:40 Immature Gran # (Auto) 0.02 K/uL (0.00-0.02) 03/23/22 05:40 APTT 29.3 Seconds (21.0-31.0) 03/22/22 21:43 PTT Ratio 1.1 03/22/22 21:43 Sodium 134 mmol/L (136-145) L 03/24/22 06:18 Potassium 3.7 mmol/L (3.5-5.1) 03/24/22 06:18 Chloride 101 mmol/L (98-107) 03/24/22 06:18 Carbon Dioxide 25 mmol/L (21-32) 03/24/22 06:18 Anion Gap 8 (3-11) 03/24/22 06:18 BUN 45 mg/dl (6-23) H 03/24/22 06:18 Creatinine 1.50 mg/dl (0.6-1.2) H 03/24/22 06:18 Est Cr Clr Drug Dosing 29.5 ml/min 03/24/22 06:18 Est GFR ( Amer) 38.0 ml/min 03/24/22 06:18 Est GFR (Non-Af Amer) 32.8 ml/min 03/24/22 06:18 BUN/Creatinine Ratio 30.0 (10-20) H 03/24/22 06:18 Glucose 85 mg/dl (70-99(Fasting)) 03/24/22 06:18 Calcium 8.3 mg/dl (8.5-10.1) L 03/24/22 06:18 Magnesium 1.9 mg/dl (1.7-2.4) 03/22/22 18:35 Total Bilirubin 0.3 mg/dl (0.2-1.0) 03/24/22 06:18 AST 21 U/L (13-39) 03/24/22 06:18 ALT 8 U/L (7-52) 03/24/22 06:18 Alkaline Phosphatase 56 U/L (34-104) 03/24/22 06:18 Troponin I High Sens 147.4 pg/ml (0-14) H* 03/23/22 21:07 B-Natriuretic Peptide 1536 pg/ml (0-100) H 03/23/22 15:16 Total Protein 5.9 gm/dl (6.0-8.3) L D 03/24/22 06:18 Albumin 3.2 gm/dl (3.4-5.0) L 03/24/22 06:18 Globulin 2.7 gm/dl (2.5-4.0) 03/24/22 06:18 Albumin/Globulin Ratio 1.2 (0.9-2) 03/24/22 06:18 Lipase 27 U/L (11-82) 03/22/22 18:35 TSH 0.976 uIu/ml (0.300-4.500) 03/22/22 18:35 Urine Color Yellow 03/22/22 23:25 Urine Appearance Cloudy (Clear) A 03/22/22 23:25 Urine pH 5.5 (4.5-7.5) 03/22/22 23:25 Ur Specific [place] 1.016 (1.000-1.030) 03/22/22 23:25 Urine Protein 3+ (Negative) H 03/22/22 23:25 Urine Glucose (UA) Negative (Negative) 03/22/22 23:25 Urine Ketones Negative (Negative) 03/22/22 23:25 Urine Blood Trace (Negative) H 03/22/22 23:25 Urine Nitrite Negative (Negative) 03/22/22 23:25 Urine Bilirubin Negative (Negative) 03/22/22 23:25 Urine Urobilinogen Negative (Negative) 03/22/22 23:25 Ur Leukocyte Esterase 2+ (Negative) H 03/22/22 23:25 Urine WBC (Auto) >30 /hpf (0-5) H 03/22/22 23:25 Urine RBC (Auto) 0-4 /hpf (0-4) 03/22/22 23:25 U Hyaline Cast (Auto) 1-5 /lpf (0-5) 03/22/22 23:25 U Epithel Cells (Auto) 0-5 /lpf (0-5) 03/22/22 23:25 Urine Bacteria (Auto) 4+ (Negative) H 03/22/22 23:25 Lyme Disease IgG Ab Negative (Negative) 03/22/22 18:35 Lyme Disease IgM Ab Negative (Negative) 03/22/22 18:35 SARS-CoV-2 (PCR) POSITIVE (Negative) A* 03/22/22 19:33 Influenza Type A (PCR) Negative (Neg) 03/22/22 19:33 Influenza Type B (PCR) Negative (Neg) 03/22/22 19:33 RSV (RT-PCR) Negative (Neg) 03/22/22 19:[address] 03/22/22 18:10 CT OF THE HEAD WITHOUT CONTRAST CLINICAL HISTORY: headache COMPARISON STUDY: Head CT February 04, 2016. CT DOSE: 537.48 mGy.cm TECHNIQUE: Helical axial images of the head were obtained without IV contrast. Automated exposure control was utilized for the study. A dose lowering technique was utilized adhering to the principles of ALARA. FINDINGS: No acute intracranial hemorrhage, midline shift or mass effect is present. White matter hypodensity suggests small vessel disease. The ventricular system is unremarkable. The basal cisterns are patent. No extra-axial collections are present. There are no findings to suggest acute dural sinus thrombosis or acute territorial infarct. No significant calvarial abnormalities are present. Visualized portions of the sinuses and mastoid air cells are clear. IMPRESSION: No acute intracranial findings. ACT 112: Negative or not required by law. Electronically signed by: Roberto Herrera M.D. 03/22/2022 8:13 PM Chest X-Ray 03/23/22 01:55 SINGLE VIEW CHEST CLINICAL HISTORY: Dyspnea. Atypical chest pain. FINDINGS: An AP, portable, upright chest radiograph is compared to study dated 03/22/2022. The heart is enlarged noting atherosclerotic calcification of the thoracic aorta. There is pulmonary vascular congestion. Bilateral airspace opacities likely represent pulmonary edema. There are small pleural effusions dependent consolidation. There is bilateral hilar enlargement. No pneumothorax is seen. The skeletal structures are osteopenic. The bony thorax is grossly intact. IMPRESSION: 1. Cardiomegaly with evidence of congestive failure. 2. Bilateral airspace opacities likely represent pulmonary edema. Correlate clinically for evidence of a superimposed infectious/inflammatory pneumonitis. 3. Small pleural effusions with dependent consolidation. 4. Bilateral hilar enlargement may represent pulmonary hypertension and/or lymphadenopathy. This is similar to prior studies. ACT 112: Negative or not required by law. Electronically signed by: Bernabe Pressley M.D. 03/23/2022 9:00 AM
[2022-03-24] MEDS: DOCUSATE SODIUM 100 MG CAP PO SCH (20:45)
[2022-03-24] MEDS: MELATONIN 3 MG TAB PO PRN (20:50)
[2022-03-25] MEDS: BENZONATATE 100 MG CAPSULE PO PRN ×2 (05:06→08:49)
[2022-03-25] MEDS: HEPARIN SOD 5,000 UNIT/0.5 ML VIAL SQ SCH (05:59)
[2022-03-25 06:45] LABS: Albumin Globulin Ratio 1.1 (0.9-2); Albumin Level 3.2 gm/dl (3.4-5.0); BUN Creatinine Ratio 30.2 (10-20); Bilirubin,Total 0.4 mg/dl (0.2-1.0); Calcium 8.4 mg/dl (8.5-10.1); Creatinine Clr Calc Pharmacy 27.9 ml/min; Est GFR (African American) 35.4 ml/min; Est GFR (Non-African American) 30.6 ml/min; Globulin 2.8 gm/dl (2.5-4.0); Potassium 3.8 mmol/L (3.5-5.1)
[2022-03-25] MEDS: guaiFENesin 600 MG TABCR PO SCH (08:50)
[2022-03-25] MEDS: ACETAMINOPHEN 325 MG TAB PO PRN (08:50)
[2022-03-25] MEDS: LOSARTAN POTASSIUM 50 MG TAB PO SCH (08:51)
[2022-03-25] MEDS: amLODIPine BESYLATE 5 MG TAB PO SCH (08:51)
[2022-03-25] MEDS: hydrALAZINE HCL 25 MG TAB PO SCH (08:51)
[2022-03-25] MEDS: PRAVASTATIN SOD 40 MG TAB PO SCH (08:52)
[2022-03-25] MEDS: PANTOprazole 40 MG TAB PO SCH (08:52)
[2022-03-25] MEDS: carvediloL 6.25 MG TAB PO SCH (08:52)
[2022-03-25] MEDS: ASPIRIN 81 MG CHEW PO SCH (09:57)
--- NOTE | 2022-03-25 14:59 | Discharge Summary ---
Date of Service March 25, 2022 Admission HPI Per Admitting Provider History obtained from patient and records. Medical history significant for chronic diastolic heart failure (EF 60 to 65%, TTE 2021), hypertension, nonocclusive CAD, PVD, rheumatic heart disease as per records, VHD (severe , mild AR/TR), COPD, pulmonary hypertension as per records, CRI (baseline creatinine 1.9-2), chronic anemia (baseline hemoglobin 10-11), chronic pain as per records, past tobacco abuse. Last confinement September 2020 for decompensated heart failure. Patient not feeling well the last few days. Achy headache, body aches, chest pain with dry cough and shortness of breath symptoms. No unusual fluid retention. Poor appetite. Denies abdominal pain. Sick COVID-19 contacts. Patient completed COVID-19 vaccination. SBP 180s upon arrival at the ER. Patient compliant with home medications. Admission Exam Per Admitting Provider GENERAL: uncomfortable, anxious, no respiratory distress SKIN: Pallor, warm HEENT: Pale palpebral conjunctivae, no ptosis, dry buccal mucosa NECK : Supple, no tenderness CHEST : Decreased breath sounds, no tenderness HEART : RRR, systolic murmur loudest on the left sternal border, obliterated S1- S2 ABDOMEN: Some distention, nontender EXTREMITIES : Minimal LE swelling, no LE tenderness NEUROLOGIC : Coherent, no facial asymmetry, no other gross focality Principal Diagnosis Hypertensive urgency Acute exacerbation of diastolic heart failure Severe COVID-19 infection Demand ischemia Discharge Exam Constitutional: Alert, oriented x3 Respiratory: Crackles at bases; decreased from previous day Cardiovascular: RRR, no murmur, no edema Vessels: no JVD or carotid bruit Chest: normal inspection of chest. Abdomen: normal bowel sounds, soft, nontender, no hepatosplenomegaly Musculoskeletal: no cyanosis or clubbing, extremities motor strength 5/5 Skin: 1+ pitting edema present Neurologic: PERRL, EOMI, accommodation nl, no face palsy, no dysarthria CN's II- XI intact bilaterally and moves all extremities Psychiatric: A+Ox3, euthymic affect Lymphatic: no cervical or axillary lymphadenopathy : deferred Discharge Data Allergies Allergy/AdvReac Type Severity Reaction Status Date / Time oxycodone AdvReac Intermediate "makes me Verified 10/01/20 01:44 go crazy" gabapentin AdvReac Mild cough Verified 10/01/20 01:44 ramipril AdvReac Mild cough Verified 10/01/20 01:44 Consultations 03/22/22 21:16 ED Decision to Admit Stat 03/23/22 07:48 Consult Cardiology Routine Ordered Studies 03/22/22 18:10 CT head/brain wo con Stat Hospital Course (1) Hypertensive crisis: (2) COVID: (3) Aortic stenosis: (4) Acute exacerbation of congestive heart failure: Plan Patient is a 77-year-old female with past medical history of diastolic heart failure, severe , chronic pain, SHEA presented to the ED with complaints of chest pain, headache and shortness of breath. In the ED, patient was found to be hypertensive and was requiring oxygen by nasal cannula. Chest x-ray was remarkable for pulm edema. She was also found to have COVID-19 infection by rapid antigen test. Patient was admitted to telemetry floor and cardiology was consulted. Patient was treated with IV diuretics. Patient's home antihypertensives were continued. Patient was given symptomatic treatment for her cough. Patient's oxygen requirement down trended over the course of treatment and she did not require any oxygen on the day of the discharge. She was able to ambulate without any difficulty breathing. Patient was discharged home with her son with instructions to follow-up with PCP. She was also instructed to take extra dose of torsemide for weight increases by 3 to 4 pounds. Total Time Total Time Spent Total Time Spent (In Minutes): 35 Total Time Includes: Examination of the Patient, Discharge Planning, Medication Reconciliation, Communication With Other Providers and Other Discharge Plan Discharge Items Patient Disposition: Home - Home Health Services Reason For Visit: CP,TROP ELEV,COVID Discharge Diagnosis: Hypertensive urgency Acute exacerbation of diastolic heart failure Severe COVID-19 infection Demand ischemia Activity: Resume your previous activity Non-emergency contact: Primary Care Provider Call non-emergency contact if: you have any medication questions and your symptoms worsen Follow-up/Referrals: Jazzy Appiah DO [Primary Care Provider] - (Date & Time 03/29/2022 11:10 AM Provider Jazzy Appiah DO Department Family [facility] ) Diet: Regular Addtl Attending Provider Instructions: You were admitted here with acute exacerbation of heart failure and COVID-19 infection. Please continue to take your medication as prescribed. Please weigh yourself daily. Please take extra dose of torasemid if you weight has gone up by 3- 4 pounds and call you primary care doctor. You have been prescribed cough lozenges to be taken as needed. Please car pick up driver the medication from [facility]. Please follow-up with your primary care doctor. Pending Studies at Discharge: No Stand-Alone Forms: [facility], Smoking Cessation Medications and DC Order Prescriptions: New dextromethorphan-benzocaine 5-7.5 mg lozenge 1 janett PO .q8prn PRN (Reason: sore throat) Qty: 16 0RF Continued aspirin 81 mg tablet,chewable 81 mg PO DAILY losartan 50 mg Tablet 50 mg PO BID pravastatin 40 mg Tablet 40 mg PO QAM Cranberry Plus Vitamin C 140-100 mg Capsule 1 cap PO QPM hydrocodone-acetaminophen 10-325 mg Tablet 1 tab PO BID Rx Instructions: takes @ 0400 & 2000 amlodipine 10 mg Tablet 10 mg PO QAM nitroglycerin 0.4 mg Tablet, Sublingual 0.4 mg sublingual UD PRN (Reason: Angina) omeprazole 20 mg Capsule,Delayed Release(Dr/Ec) 20 mg PO QAM docusate sodium [Stool Softener] 100 mg Tablet 300 mg PO QPM Gaviscon 80-14.2 mg Tablet,Chewable 1 tab PO UD PRN (Reason: Abdominal Discomfort) cyanocobalamin (vitamin B-12) 2,500 mcg Tablet 2,500 mcg PO QPM carvedilol 6.25 mg Tablet 6.25 mg PO BID Qty: 60 2RF hydralazine 25 mg Tablet 75 mg PO TID Qty: 270 1RF torsemide 10 mg tablet 10 mg PO DAILY Discharge Orders: Discharge Order (Routine); Ordered 03/25/22 Ordered By: Marek Shepherd/Other Patient Handouts: COVID-19 Home Care, Coping with Heart Failure, Heart Failure Dc Admission Data Admit Date/Time: 03/23/22 07:00 Attending Provider: Marek Shen Admit Provider: Gilmar Mauro Primary Care Provider: Jazzy Appiah Other Providers: Gilmar Mauro ; Olu Gonzáles ; [facility] Other Interventions: Discharge Summary Assessment (RN) Last Done: 03/25/22 11:09
== END 2022-03-25 11:45 | disposition home health service (06) | DRG 177 ==
LOC: EDINP 16:59 → ED 16:59 → 2W 03-23 14:58

== ENCOUNTER 2022-06-15 14:42 | Inpatient (IN) ==
--- NOTE | 2022-06-15 14:59 | Emergency Department Note ---
Impression & Plan SBO (small bowel obstruction), Hiatal hernia, Abdominal pain, Nausea & vomiting ED Provider Note NAME: ANTON JAVED AGE: 77 SEX: F : 1945 ARRIVES VIA: Ambulance INFORMANT: Patient, ED PROVIDER(S): Jermain Penn MD Chief Complaint: Abdominal pain HPI: Patient presents due to concern for epigastric and left upper quadrant pain that began approximately 3 hours ago. The patient did present via EMS and did receive antiemetics and IV morphine which did help improve her symptoms. Patient states that her pain is returning. Patient describes it as sharp. Patient denies any chest pains or shortness of breath. The patient has had associated nausea and vomiting. Patient denies any dysuria hematuria. The patient states that she had a bowel movement yesterday. Patient denies any falls or trauma. Patient denies that this is secondary to her eating. The patient does not know if she still has a gallbladder. No fevers or chills or upper respiratory symptoms. Patient denies any alcohol or tobacco use. No additional exacerbating remitting factors. ROS: See HPI for pertinent positives and negatives. A total of 10 systems were reviewed and otherwise negative. Past medical history: See below Surgical history: See below Social history: See below Physical Exam: GENERAL: NAD, non-toxic. Wearing glasses. EYE EXAM: Normal conjunctiva. PERRL, no anisocoria and EOM's grossly intact w/o pain. NECK: Supple, no nuchal rigidity, no adenopathy, non-tender. No signs of meningismus. FROM of the neck with good chin to chest and neck extension. No stridor. LUNGS: Clear to auscultation. Normal chest wall mechanics. HEART: NSR, systolic ejection murmur noted. ABDOMEN: Abdomen soft, reproducible epigastric and left upper quadrant pain, no right upper quadrant or lower abdominal pain, normo-active bowel sounds, no masses, no rebound or guarding. BACK: No CVA TTP. SKIN: No rashes and no bruising. UPPER EXTREMITIES: Upper extremities are grossly normal. LOWER EXTREMITIES: Grossly normal, mild pedal edema. Good DP pulses bilaterally NEURO EXAM: A&O x3, cranial nerves II-XII grossly intact, normal speech, moves all 4 extremities. Differential diagnoses: Appendicitis, ovarian cyst, ovarian torsion, ectopic , TOA, PID, infections, diverticulitis, UTI, obstruction, mesenteric ischemia, aortic pathology, inflammatory bowel disease, renal colic, PUD, pancreatitis, biliary pathology, hernia, volvulus, constipation, as well as other pathologies. Course: Patient was seen and evaluated the bedside. Full history physical exam was performed. Imaging Studies: See Below Cardiac monitoring: An order was placed for continuous cardiac monitoring. The monitor shows a rate of 65 with sinus rhythm. MDM: Blood work was obtained along with an EKG troponin CT abdomen pelvis. Patient was ordered IV pain and nausea medication. The patient's blood work showed a normal white count with anemia of 9. The patient has had hemoglobins in the tens in September and March. The patient denies any red blood per rectum or dark tarry patient does have an elevated BUN to creatinine ratio patient has had an elevated BUN to creatinine ratio is in the past. The patient does have a positive troponin at 31. This is lower than she has had in the past. Patient denies any current chest pains or shortness of breath. COVID-negative. Patient CT does show concern for small bowel obstruction. The patient has had no further vomiting upon arrival here. Do not believe she requires any GI at this time. I did inform the on-call general surgeon Dr. Bryan that I would be admitting the patient to the medicine service. I did speak with the on-call hospitalist Dr. Abrams and the patient was admitted to medicine service. Patient CT also does show a pericardial effusion and pleural effusions with cardiomegaly. The patient does not appear in respiratory distress. Patient is not hypotensive. Additional medications deferred inpatient team at this time. Past Med/Surg History Medical History Acute exacerbation of congestive heart failure Aortic stenosis "moderately severe by echo September 2013" Chawla's esophagus Cardiac murmur Chronic back pain Chronic sialoadenitis CKD (chronic kidney disease) stage 3, GFR 30-59 ml/min Coronary artery disease "nonocclusive disease [place] [facility] [place] COVID Esophageal motility disorder "noted on barium swallow 10/2014" Generalized weakness GERD (gastroesophageal reflux disease) History of esophageal dilatation Hyperlipidemia Hypertension Hypertensive crisis Leaky heart valve per pt aorta--follows with Dr. Gonzáles Myalgia Osteoarthritis Poor historian Surgical History History of appendectomy History of bilateral tubal ligation History of cardiac cath x3--last 12/2018 no stents History of carpal tunnel release of both wrists History of cholecystectomy History of colonoscopy History of esophagogastroduodenoscopy (EGD) History of hysterectomy History of lumbar spinal fusion History of lumpectomy cant remember which breast---benign fatty tissue History of sinus surgery History of tonsillectomy History of tooth extraction History of total left knee replacement (TKR) History of umbilical hernia repair Family History Other No family history of adverse response to anesthesia No family history of bleeding disorder Social History Smoking Status: Never smoker Second Hand Exposure: No; Hx Alcohol Use: No Hx Substance Use: No Preferred Language: Nepali Communication Ability: Effective Assistant Manager Of Operations Required: No Beliefs That Will Affect Care: Lutheran Lutheran Beliefs: Patient is mu-ism marital status: / Current Living Situation: Alone Current Living Situation Comment: Son lives across street Feels Safe at Home: Yes Assistive Devices: Glasses, Walker and Wheelchair Allergies Allergies Allergy/AdvReac Type Severity Reaction Status Date / Time gabapentin AdvReac Intermediate cough Verified 06/15/22 16:08 oxycodone AdvReac Intermediate "makes me Verified 06/15/22 16:08 go crazy" ramipril AdvReac Intermediate cough Verified 06/15/22 16:08 Home Meds Home Medications Medication Instructions Recorded Confirmed amlodipine 10 mg tablet 10 mg PO QAM 07/01/19 06/15/22 cranberry concentrate-ascorbic 4 cap PO DAILY 07/01/19 06/15/22 acid 140 mg-100 mg capsule (Cranberry Plus Vitamin C) cyanocobalamin (vitamin B-12) 2,500 mcg PO QPM 07/01/19 06/15/22 2,500 mcg tablet docusate sodium 100 mg tablet 100 - 200 mg PO QPM 07/01/19 06/15/22 (Stool Softener) hydrocodone 10 mg-acetaminophen 1 tab PO BID 07/01/19 06/15/22 325 mg tablet losartan 50 mg tablet 50 mg PO DAILY 07/01/19 06/15/22 nitroglycerin 0.4 mg sublingual 0.4 mg sublingual UD PRN Angina 07/01/19 06/15/22 tablet omeprazole 20 mg capsule,delayed 20 mg PO QAM 07/01/19 06/15/22 release pravastatin 40 mg tablet 40 mg PO QAM 07/01/19 06/15/22 aspirin 81 mg chewable tablet 81 mg PO DAILY 09/01/20 06/15/22 torsemide 10 mg tablet 10 mg PO DAILY 03/23/22 06/15/22 acetaminophen 650 mg 650 mg PO Q8H PRN Pain 06/15/22 06/15/22 tablet,extended release ascorbic acid (vitamin C) 500 mg 500 mg PO DAILY 06/15/22 06/15/22 tablet (Vitamin C) cholecalciferol (vitamin D3) 25 25 mcg PO DAILY 06/15/22 06/15/22 mcg (1,000 unit) capsule (Vitamin D3) hydralazine 50 mg tablet 50 mg PO TID 06/15/22 06/15/22 pyridoxine (vitamin B6) 50 mg 50 mg PO DAILY 06/15/22 06/15/22 tablet (Vitamin B-6) turmeric root extract 500 mg tablet 500 mg PO DAILY 06/15/22 06/15/22 vitamin E 670 mg (1,000 unit) 670 mg PO DAILY 06/15/22 06/15/22 capsule Previous Rx's Medication Instructions Recorded carvedilol 6.25 mg tablet 6.25 mg PO BID #60 tabs 10/04/20 Results & Data (ED) Vital Signs Vital Signs - 24 hr 06/15/22 14:58 06/15/22 15:23 06/15/22 15:23 Temperature 36.5 C Temperature Source Oral Pulse Rate 56 L Pulse Rate [Apical] 59 L Pulse Rhythm Regular Pulse Rhythm [Apical] Regular Pulse Strength Normal Pulse Strength [Apical] Normal Respiratory Rate 14 18 Respiratory Effort / Characteristics Non-Labored Non-Labored Respiratory Depth Normal Normal Respiratory Pattern Regular Regular Blood Pressure 144/56 H Blood Pressure [Right Arm] 143/43 H Blood Pressure Mean 85 Blood Pressure Mean [Right Arm] 76 Pulse Oximetry 94 97 98 Oxygen Delivery Method Room Air Room Air Room Air Sepsis Recent Fever Within 48 Hours No Sepsis New/Unexplained Change in Mental Status No Sepsis Action Taken by Nursing No Action Required 06/15/22 17:00 Temperature Temperature Source Pulse Rate Pulse Rate [Apical] 62 Pulse Rhythm Pulse Rhythm [Apical] Regular Pulse Strength Pulse Strength [Apical] Normal Respiratory Rate 18 Respiratory Effort / Characteristics Non-Labored Respiratory Depth Normal Respiratory Pattern Regular Blood Pressure Blood Pressure [Right Arm] 141/60 H Blood Pressure Mean Blood Pressure Mean [Right Arm] 87 Pulse Oximetry 93 Oxygen Delivery Method Room Air Sepsis Recent Fever Within 48 Hours Sepsis New/Unexplained Change in Mental Status Sepsis Action Taken by [facility] Medications Current Medication List: was personally reviewed by me Laboratory Data Attestation: I reviewed the patient's lab results. Result diagrams: 06/15/22 15:22 06/15/22 15: Lab Results 06/15/22 06/15/22 06/15/22 Range/Units 15: 15: 15: WBC 9.58 (4.8-10.8) K/ul RBC 3.16 L (3.93-5.22) M/uL Hgb 9.0 L (12.0-16.0) g/dl Hct 27.8 L (34.1-44.9) % MCV 88.0 (80.0-100.0) fL MCH 28.5 (25.0-34.0) pg MCHC 32.4 (32.0-36.0) g/dL RDW Std Deviation 48.9 H (36.4-46.3) fL RDW Coeff of Breanne 15.0 H (11.5-14.5) % Plt Count 245 (130-400) K/uL MPV 10.7 (9.4-12.3) fL Immature Gran % (Auto) 0.4 % Neut % (Auto) 85.2 % Lymph % (Auto) 7.0 % [place] % (Auto) 4.1 % Eos % (Auto) 2.5 % Baso % (Auto) 0.8 % Neut # (Auto) 8.16 H (1.4-6.5) K/uL Lymph # (Auto) 0.67 L (1.2-3.4) K/uL [place] # (Auto) 0.39 (0.24-0.82) K/uL Eos # (Auto) 0.24 (0-0.50) K/uL Baso # (Auto) 0.08 (0-0.2) K/uL Immature Gran # (Auto) 0.04 H (0.00-0.02) K/uL PT 11.5 (9.0-12.0) Seconds INR 1.1 (0.9-1.1) Sodium 136 (136-145) mmol/L Potassium 4.2 (3.5-5.1) mmol/L Chloride 103 (98-107) mmol/L Carbon Dioxide 23 (21-32) mmol/L Anion Gap 10 (3-11) BUN 55 H (6-23) mg/dl Creatinine 1.49 H (0.6-1.2) mg/dl Est Cr Clr Drug Dosing 29.2 ml/min Est GFR ( Amer) 38.3 ml/min Est GFR (Non-Af Amer) 33.1 ml/min BUN/Creatinine Ratio 36.9 H (10-20) Glucose 152 H (70-99(Fasting)) mg/dl Calcium 9.1 (8.5-10.1) mg/dl Total Bilirubin 0.5 (0.2-1.0) mg/dl AST 20 (13-39) U/L ALT 9 (7-52) U/L Alkaline Phosphatase 59 (34-104) U/L Troponin I High Sens 31.0 H D (0-14) pg/ml Total Protein 7.3 (6.0-8.3) gm/dl Albumin 3.7 (3.4-5.0) gm/dl Globulin 3.6 (2.5-4.0) gm/dl Albumin/Globulin Ratio 1.0 (0.9-2) Lipase 25 (11-82) U/L Urine Color Urine Appearance (Clear) Urine pH (4.5-7.5) Ur Specific Ber[place] (1.000-1.030) Urine Protein (Negative) Urine Glucose (UA) (Negative) Urine Ketones (Negative) Urine Blood (Negative) Urine Nitrite (Negative) Urine Bilirubin (Negative) Urine Urobilinogen (Negative) Ur Leukocyte Esterase (Negative) Urine WBC (Auto) (0-5) /hpf Urine RBC (Auto) (0-4) /hpf U Hyaline Cast (Auto) (0-5) /lpf U Epithel Cells (Auto) (0-5) /lpf Urine Bacteria (Auto) (Negative) SARS-CoV-2, RNA, NAAT (NEGATIVE) 06/15/22 06/15/22 Range/Units 18:30 18:30 WBC (4.8-10.8) K/ul RBC (3.93-5.22) M/uL Hgb (12.0-16.0) g/dl Hct (34.1-44.9) % MCV (80.0-100.0) fL MCH (25.0-34.0) pg MCHC (32.0-36.0) g/dL RDW Std Deviation (36.4-46.3) fL RDW Coeff of Breanne (11.5-14.5) % Plt Count (130-400) K/uL MPV (9.4-12.3) fL Immature Gran % (Auto) % Neut % (Auto) % Lymph % (Auto) % [place] % (Auto) % Eos % (Auto) % Baso % (Auto) % Neut # (Auto) (1.4-6.5) K/uL Lymph # (Auto) (1.2-3.4) K/uL [place] # (Auto) (0.24-0.82) K/uL Eos # (Auto) (0-0.50) K/uL Baso # (Auto) (0-0.2) K/uL Immature Gran # (Auto) (0.00-0.02) K/uL PT (9.0-12.0) Seconds INR (0.9-1.1) Sodium (136-145) mmol/L Potassium (3.5-5.1) mmol/L Chloride (98-107) mmol/L Carbon Dioxide (21-32) mmol/L Anion Gap (3-11) BUN (6-23) mg/dl Creatinine (0.6-1.2) mg/dl Est Cr Clr Drug Dosing ml/min Est GFR ( Amer) ml/min Est GFR (Non-Af Amer) ml/min BUN/Creatinine Ratio (10-20) Glucose (70-99(Fasting)) mg/dl Calcium (8.5-10.1) mg/dl Total Bilirubin (0.2-1.0) mg/dl AST (13-39) U/L ALT (7-52) U/L Alkaline Phosphatase (34-104) U/L Troponin I High Sens (0-14) pg/ml Total Protein (6.0-8.3) gm/dl Albumin (3.4-5.0) gm/dl Globulin (2.5-4.0) gm/dl Albumin/Globulin Ratio (0.9-2) Lipase (11-82) U/L Urine Color Yellow Urine Appearance Clear (Clear) Urine pH 5.0 (4.5-7.5) Ur Specific [place] 1.024 (1.000-1.030) Urine Protein 2+ H (Negative) Urine Glucose (UA) Negative (Negative) Urine Ketones Negative (Negative) Urine Blood Negative (Negative) Urine Nitrite Negative (Negative) Urine Bilirubin Negative (Negative) Urine Urobilinogen Negative (Negative) Ur Leukocyte Esterase Negative (Negative) Urine WBC (Auto) 1-5 (0-5) /hpf Urine RBC (Auto) 0-4 (0-4) /hpf U Hyaline Cast (Auto) 1-5 (0-5) /lpf U Epithel Cells (Auto) 20-30 H (0-5) /lpf Urine Bacteria (Auto) Negative (Negative) SARS-CoV-2, RNA, NAAT NEGATIVE (NEGATIVE) Administered Medications Discontinued Medications Fentanyl Citrate (Fentanyl Citrate 100 Mcg/2 Ml Vial) 25 mcg IV NOW ONE Stop: 06/15/22 16:00 Last Admin: 06/15/22 16:04 Dose: 25 mcg Documented By: ROYL Fentanyl Citrate (Fentanyl Citrate 100 Mcg/2 Ml Vial) 25 mcg IV NOW STA Stop: 06/15/22 18:24 Last Admin: 06/15/22 18:32 Dose: 25 mcg Documented By: ROLY Acetaminophen (Ofirmev) 1,000 mg in 100 mls @ 400 mls/hr IV NOW STA Stop: 06/15/22 19:23 Last Infusion: 06/15/22 19:57 Dose: 0 mls/hr Documented By: Admin: 06/15/22 19:41 Dose: 400 mls/hr Documented By: JIM Ioversol (Optiray 350 100ml) 83 ml IV ONCE ONE Stop: 06/15/22 17:25 Last Admin: 06/15/22 17:28 Dose: 83 ml Documented By: CAROLANN Morphine Sulfate (Morphine Sulfate 4 Mg/Ml 1 Ml Carp\\Vial) 4 mg IV NOW STA Stop: 06/15/22 15:10 Last Admin: 06/15/22 15:20 Dose: 4 mg Documented By: ROLY Ondansetron HCl (Ondansetron Inj 2 Mg/Ml 2 Ml Vial) 4 mg IV NOW STA Stop: 06/15/22 15:10 Last Admin: 06/15/22 15:20 Dose: 4 mg Documented By: ROLY Imaging Data Radiologist's Impression: Abdomen/Pelvis CT 06/15/22 15:09 CT SCAN OF THE ABDOMEN AND PELVIS WITH IV CONTRAST CLINICAL HISTORY: Epigastric and left lower quadrant abdominal pain. Nausea and vomiting. COMPARISON STUDY: Abdominal CT dated 03/01/2015. TECHNIQUE: Following the IV administration of 83 cc of Optiray 350, CT scan of the abdomen and pelvis is performed from the lung bases to the proximal femora. Images are reviewed in the axial, sagittal, and coronal planes. IV contrast was administered without complication. A dose lowering technique was utilized adhering to the principles of ALARA. The examination is degraded by streak artifact from metallic spinal hardware. CT DOSE: 374.02 mGy.cm FINDINGS: Lung bases: The heart is enlarged noting a moderate pericardial effusion. The coronary arteries and mitral annulus are densely calcified. There are trace pleural effusions with dependent atelectasis. Interlobular septal thickening in the lower lobes suggest congestive failure. There is a moderate to large hiatal hernia. Liver: The contrast-enhanced liver is normal in size, contour, and attenuation. There is mild to moderate intrahepatic biliary ductal dilatation. The hepatic veins and portal veins are patent. Gallbladder: Surgically absent noting clips in the gallbladder fossa. Spleen: Normal in size and attenuation. Pancreas: Moderately atrophic and grossly unremarkable. Adrenal glands: Unremarkable. Kidneys: The contrast enhanced kidneys demonstrate cortical atrophy and are without hydronephrosis. The kidneys enhance symmetrically. Abdominal vasculature: The abdominal aorta is normal in course and caliber noting advanced atherosclerotic calcification. There is high-grade stenosis of the left iliac artery seen on image #211. Bowel: The proximal small bowel loops are dilated and fluid-filled, measuring up to 2.7 cm diameter. A transition point is identified in the central pelvis on image #285. The distal small bowel and colon are decompressed comment appearance is consistent with a small bowel obstruction. There is trace interloop fluid. No focal or thick walled bowel loops are identified and there is no pneumatosis intestinalis or portal venous gas. There is significant rectosigmoid fecal retention. The appendix is not identified and reported surgically absent. Peritoneum: There is trace perihepatic ascites, as well as trace free fluid in the pelvis. No intraperitoneal free air is identified. Lymphadenopathy: None. Pelvic viscera: The bladder is normal as visualized. The uterus is surgically absent. No adnexal lesion is seen. Skeletal structures: The skeletal structures are osteopenic. There is advanced lumbosacral spondylosis with evidence of multilevel lumbar spinal fusion. There is also scoliosis. No lytic or blastic lesions are seen. Arthritic change is seen in the hips. IMPRESSION: 1. Small bowel obstruction. A transition point is identified in the central pelvis, and this is likely on the basis of adhesions. 2. There is trace interloop fluid. No focally thick-walled bowel are identified. There is no intraperitoneal free air, pneumatosis intestinalis, or portal venous gas. 3. Cardiomegaly with evidence of congestive failure. 4. Trace pleural effusions. 5. A pericardial effusion is new from 2015. 6. Moderate to large hiatal hernia. 7. Additional findings as above. ACT 112: Negative or not required by law. Electronically signed by: Bernabe Pressley M.D. 06/15/2022 5:53 PM Discharge Plan Visit Data Chief Complaint: Abdominal Pain Stated Complaint: BACK & AB PAIN ED Provider: Jermain Penn Discharge Problem: SBO (small bowel obstruction), Hiatal hernia, Abdominal pain, Nausea & vomiting Patient Disposition: Admitted As Inpatient Discharge Instructions Interventions: ED Discharge Assessment Last Done: 06/15/22 20:08
[2022-06-15] MEDS ORDERED: ONDANSETRON INJ 2 MG/ML 2 ML VIAL IV STA (15:09)
[2022-06-15] MEDS ORDERED: MoRPHine SULFATE 4 MG/ML 1 ML CARP\\VIAL IV STA (15:09)
[2022-06-15] MEDS ORDERED: fentaNYL citrate 100 MCG/2 ML VIAL IV ONE (15:59)
[2022-06-15 16:06] LABS: Basophils # (auto) 0.08 K/uL (0-0.2); Basophils % (auto) 0.8 %; Eosinophils # (auto) 0.24 K/uL (0-0.50); Eosinophils % (auto) 2.5 %; Hematocrit (blood only) 27.8 % (34.1-44.9); Immature Granulocytes # (auto) 0.04 K/uL (0.00-0.02); Immature Granulocytes % (auto) 0.4 %; Lymphocytes # (auto) 0.67 K/uL (1.2-3.4); Mean Corpuscular Hemoglobin 28.5 pg (25.0-34.0); Mean Corpuscular Hgb Conc 32.4 g/dL (32.0-36.0); Mean Platelet Volume 10.7 fL (9.4-12.3); Monocytes # (auto) 0.39 K/uL (0.24-0.82); Monocytes % (auto) 4.1 %; Neutrophils # (auto) 8.16 K/uL (1.4-6.5); Neutrophils % (auto) 85.2 %; Platelet Count 245 K/uL (130-400); RDW Standard Deviation 48.9 fL (36.4-46.3); Red Blood Count 3.16 M/uL (3.93-5.22); White Blood Count 9.58 K/ul (4.8-10.8)
[2022-06-15 16:17] LABS: INR 1.1 (0.9-1.1); Prothrombin Time 11.5 Seconds (9.0-12.0)
[2022-06-15 16:28] LABS: Albumin Level 3.7 gm/dl (3.4-5.0); BUN Creatinine Ratio 36.9 (10-20); Bilirubin,Total 0.5 mg/dl (0.2-1.0); Calcium 9.1 mg/dl (8.5-10.1); Creatinine Clr Calc Pharmacy 29.2 ml/min; Est GFR (African American) 38.3 ml/min; Est GFR (Non-African American) 33.1 ml/min; Globulin 3.6 gm/dl (2.5-4.0); Potassium 4.2 mmol/L (3.5-5.1); Total Protein 7.3 gm/dl (6.0-8.3)
[2022-06-15] MEDS ORDERED: OPTIRAY 350 100ml IV ONE (17:24)
--- NOTE | 2022-06-15 17:55 | CT Scan Report ---
CT SCAN OF THE ABDOMEN AND PELVIS WITH IV CONTRAST CLINICAL HISTORY: Epigastric and left lower quadrant abdominal pain. Nausea and vomiting. COMPARISON STUDY: Abdominal CT dated 03/01/2015. TECHNIQUE: Following the IV administration of 83 cc of Optiray 350, CT scan of the abdomen and pelvi s is performed from the lung bases to the proximal femora. Images are reviewed in the axial, sagittal , and coronal planes. IV contrast was administered without complication. A dose lowering technique wa s utilized adhering to the principles of ALARA. The examination is degraded by streak artifact from m etallic spinal hardware. CT DOSE: 374.02 mGy.cm FINDINGS: Lung bases: The heart is enlarged noting a moderate pericardial effusion. The coronary arteries and m itral annulus are densely calcified. There are trace pleural effusions with dependent atelectasis. In terlobular septal thickening in the lower lobes suggest congestive failure. There is a moderate to la rge hiatal hernia. Liver: The contrast-enhanced liver is normal in size, contour, and attenuation. There is mild to mode rate intrahepatic biliary ductal dilatation. The hepatic veins and portal veins are patent. Gallbladder: Surgically absent noting clips in the gallbladder fossa. Spleen: Normal in size and attenuation. Pancreas: Moderately atrophic and grossly unremarkable. Adrenal glands: Unremarkable. Kidneys: The contrast enhanced kidneys demonstrate cortical atrophy and are without hydronephrosis. T he kidneys enhance symmetrically. Abdominal vasculature: The abdominal aorta is normal in course and caliber noting advanced atheroscle rotic calcification. There is high-grade stenosis of the left iliac artery seen on image #211. Bowel: The proximal small bowel loops are dilated and fluid-filled, measuring up to 2.7 cm diameter. A transition point is identified in the central pelvis on image #285. The distal small bowel and colo n are decompressed comment appearance is consistent with a small bowel obstruction. There is trace in terloop fluid. No focal or thick walled bowel loops are identified and there is no pneumatosis intest inalis or portal venous gas. There is significant rectosigmoid fecal retention. The appendix is not identified and reported surgically absent. Peritoneum: There is trace perihepatic ascites, as well as trace free fluid in the pelvis. No intrape ritoneal free air is identified. Lymphadenopathy: None. Pelvic viscera: The bladder is normal as visualized. The uterus is surgically absent. No adnexal lesi on is seen. Skeletal structures: The skeletal structures are osteopenic. There is advanced lumbosacral spondylosi s with evidence of multilevel lumbar spinal fusion. There is also scoliosis. No lytic or blastic lesi ons are seen. Arthritic change is seen in the hips. IMPRESSION: 1. Small bowel obstruction. A transition point is identified in the central pelvis, and this is likel y on the basis of adhesions. 2. There is trace interloop fluid. No focally thick-walled bowel are identified. There is no intraper itoneal free air, pneumatosis intestinalis, or portal venous gas. 3. Cardiomegaly with evidence of congestive failure. 4. Trace pleural effusions. 5. A pericardial effusion is new from 2015. 6. Moderate to large hiatal hernia. 7. Additional findings as above. ACT 112: Negative or not required by law. Electronically signed by: Bernabe Pressley M.D. 06/15/2022 5:53 PM
[2022-06-15] MEDS ORDERED: fentaNYL citrate 100 MCG/2 ML VIAL IV STA (18:23)
--- NOTE | 2022-06-15 18:39 | History & Physical Report ---
Date of Service June 15, 2022 Assessment & Plan (1) Small bowel obstruction: Plan: Acute SBO possibly related to scar tissue given multiple abdominal surgeries in the past vs ileus from chronic narcotic use. Keep NPO. She is not actively vomiting and no nausea so no need for NG tube at this time. Maintenance IVF, monitor closely for volume overload given known aortic stenosis. Cont supportive care measures. Consult general surgery. (2) Coronary artery disease: Plan: Worsened cardiac disease seen during cath on 05/31/22. Plan for high risk PCI at [facility] on 07/06. Ongoing anginal symptoms and dyspnea on exertion. Consult cardiology for help with monitoring and caring for these symptoms. (3) Pericardial effusion: Plan: Known small pericardial effusion historically. Will consult cardiology with ongoing cardiac symptoms and would defer any repeat echo to them if needed. (4) Aortic stenosis: Plan: moderate. There was consideration for TAVR, however, she is considered higher risk with poor chance for good recovery. Deferred at this time. (5) Anemia: Plan: chronic and around her baseline. Likely related to chronic disease. No overt bleeding. Cont to monitor. (6) CKD (chronic kidney disease) stage 3, GFR 30-59 ml/min: Plan: Chronic, around baseline. Cont to monitor. (7) DVT prophylaxis: Plan: heparin Full Code Dispo-to [employer]. Marilyn Abrams DO [facility] Hospitalist History of Present Illness Chief Complaint: abdominal pain x several hours Primary Care Provider: Jazzy Appiah DO 77-year-old female presented with epigastric and left upper quadrant pain that began approximately 3 hours prior to arrival. She did present via EMS and did receive antiemetics and IV morphine which improved her symptoms. The pain is sharp and she has had some associated nausea and vomiting. She denies a history of small bowel obstruction in the past. Work-up revealed a small bowel obstruction on CT scan. Last BM was this morning and again around 1pm No abnormal stools or blood per rectum No recent changes in medications Multiple abdominal surgeries including appendectomy, cholecystectomy, hysterectomy, bilateral tubal ligation, history of umbilical hernia repair. She is on chronic oxycodone at a dose of 10 mg twice daily consistently for the past 10 years to help with arthritis pain. She was recently evaluated by CT surgery at [facility], referred to the TAVR clinic. She underwent a cardiac cath on 05/31/2022 that showed left main CAD of 60% stenosis. This is in the setting of progressive shortness of breath with most activities over the last couple of months impairing her activities of daily living. They weighed the question of whether to do a CABG versus high risk PCR than TAVR. Her symptoms are attributed to both her coronary disease and at least moderate aortic stenosis. It was felt that surgery to replace her aortic valve and cardiac bypass would be an elevated risk due to her frail state and limited mobility. Dr. Son is planning high risk PCI on July 06 at [facility]. Further interventions on her aortic valve have been deferred. Today she denies the left anterior tightness that she has been feeling over the last couple of months. Her pain is described more in the epigastric region and radiating over to the left upper abdomen and into the left anterior chest but it is sharp and severe and constant. Recent chest tightness on the left anterior chest that is provoked by exertion. She denies fevers, chills. +vomiting on the way to the ER but currently denies nausea. States pain is still severe despite morphine and fentanyl. Allergies Allergy/AdvReac Type Severity Reaction Status Date / Time gabapentin AdvReac Intermediate cough Verified 06/15/22 16:08 oxycodone AdvReac Intermediate "makes me Verified 06/15/22 16:08 go crazy" ramipril AdvReac Intermediate cough Verified 06/15/22 16:08 Home Medications Medication Instructions Recorded Confirmed Type amlodipine 10 mg tablet 10 mg PO QAM 07/01/19 06/15/22 History cranberry concentrate-ascorbic 4 cap PO DAILY 07/01/19 06/15/22 History acid 140 mg-100 mg capsule (Cranberry Plus Vitamin C) cyanocobalamin (vitamin B-12) 2,500 mcg PO QPM 07/01/19 06/15/22 History 2,500 mcg tablet docusate sodium 100 mg tablet 100 - 200 mg PO QPM 07/01/19 06/15/22 History (Stool Softener) hydrocodone 10 mg-acetaminophen 1 tab PO BID 07/01/19 06/15/22 History 325 mg tablet losartan 50 mg tablet 50 mg PO DAILY 07/01/19 06/15/22 History nitroglycerin 0.4 mg sublingual 0.4 mg sublingual UD PRN Angina 07/01/19 06/15/22 History tablet omeprazole 20 mg capsule,delayed 20 mg PO QAM 07/01/19 06/15/22 History release pravastatin 40 mg tablet 40 mg PO QAM 07/01/19 06/15/22 History aspirin 81 mg chewable tablet 81 mg PO DAILY 09/01/20 06/15/22 History carvedilol 6.25 mg tablet 6.25 mg PO BID #60 tabs 10/04/20 06/15/22 Rx torsemide 10 mg tablet 10 mg PO DAILY 03/23/22 06/15/22 History acetaminophen 650 mg 650 mg PO Q8H PRN Pain 06/15/22 06/15/22 History tablet,extended release ascorbic acid (vitamin C) 500 mg 500 mg PO DAILY 06/15/22 06/15/22 History tablet (Vitamin C) cholecalciferol (vitamin D3) 25 25 mcg PO DAILY 06/15/22 06/15/22 History mcg (1,000 unit) capsule (Vitamin D3) hydralazine 50 mg tablet 50 mg PO TID 06/15/22 06/15/22 History pyridoxine (vitamin B6) 50 mg 50 mg PO DAILY 06/15/22 06/15/22 History tablet (Vitamin B-6) turmeric root extract 500 mg tablet 500 mg PO DAILY 06/15/22 06/15/22 History vitamin E 670 mg (1,000 unit) 670 mg PO DAILY 06/15/22 06/15/22 History capsule Past Med/Surg History Medical History Acute exacerbation of congestive heart failure Aortic stenosis "moderately severe by echo September 2013" Chawla's esophagus Cardiac murmur Chronic back pain Chronic sialoadenitis CKD (chronic kidney disease) stage 3, GFR 30-59 ml/min Coronary artery disease "nonocclusive disease [place] [facility] [place]" COVID Esophageal motility disorder "noted on barium swallow 10/2014" Generalized weakness GERD (gastroesophageal reflux disease) History of esophageal dilatation Hyperlipidemia Hypertension Hypertensive crisis Leaky heart valve per pt aorta--follows with Dr. Gonzáles Mycoy Osteoarthritis Poor historian Surgical History History of appendectomy History of bilateral tubal ligation History of cardiac cath x3--last 12/2018 no stents History of carpal tunnel release of both wrists History of cholecystectomy History of colonoscopy History of esophagogastroduodenoscopy (EGD) History of hysterectomy History of lumbar spinal fusion History of lumpectomy cant remember which breast---benign fatty tissue History of sinus surgery History of tonsillectomy History of tooth extraction History of total left knee replacement (TKR) History of umbilical hernia repair Family History Other No family history of adverse response to anesthesia No family history of bleeding disorder Social History Smoking Status: Never smoker Second Hand Exposure: No; Hx Alcohol Use: No Hx Substance Use: No Preferred Language: Latvian Communication Ability: Effective 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 Physical Exam Physical Exam: CONSTITUTIONAL: frail, elderly vitals as above, moderate distress from abdominal pain EYES: PERRL, normal conjunctivae, no scleral icterus ENT: external ear and nose normal, MMM NECK: trachea midline, RESPIRATORY: clear to auscultation bilaterally, no crackles, rales or wheezes, normal respiratory effort CARDIOVASCULAR: regular rate and rhythm, S1 and 2 heard without murmurs, gallops or rubs, no JVD, no peripheral edema, CHEST: inspection of chest was normal GASTROINTESTINAL: soft, generalized tenderness and guarding, nondistended MUSCULOSKELETAL: strength 5/5 throughout, head is normocephalic and atraumatic SKIN: warm and dry NEUROLOGIC: CN 2-12 grossly intact, no sensory deficit, normal cognition, normal speech, no tremor PSYCHIATRIC: alert cooperative and oriented to person, place and time. Euthymic mood, makes good eye contact, language grossly intact, recent and remote memory grossly intact. Results & Data Results & Data ([facility]) Vital Signs (Past 12 Hours) Vital Signs Temp Pulse Pulse Resp BP BP Pulse Ox 06/15/22 17:00 62 18 141/60 H 93 06/15/22 15:23 98 06/15/22 15:23 59 L 18 143/43 H 97 06/15/22 14:58 36.5 C 56 L 14 144/56 H 94 O2 Del Method 06/15/22 17:00 Room Air 06/15/22 15:23 Room Air 06/15/22 15:23 Room Air 06/15/22 14:58 Room Air Laboratory Results Short CBC 06/15/22 Range/Units 15:22 WBC 9.58 (4.8-10.8) K/ul Hgb 9.0 L (12.0-16.0) g/dl Hct 27.8 L (34.1-44.9) % Plt Count 245 (130-400) K/uL BMP 06/15/22 15:22 Sodium 136 Potassium 4.2 Chloride 103 Carbon Dioxide 23 BUN 55 H Creatinine 1.49 H Glucose 152 H Calcium 9.1 Liver Function 06/15/22 Range/Units 15:22 Total Bilirubin 0.5 (0.2-1.0) mg/dl AST 20 (13-39) U/L ALT 9 (7-52) U/L Alkaline Phosphatase 59 (34-104) U/L Albumin 3.7 (3.4-5.0) gm/dl Diagnostic Findings Abdomen/Pelvis CT 06/15/22 15:09 CT SCAN OF THE ABDOMEN AND PELVIS WITH IV CONTRAST CLINICAL HISTORY: Epigastric and left lower quadrant abdominal pain. Nausea and vomiting. COMPARISON STUDY: Abdominal CT dated 03/01/2015. TECHNIQUE: Following the IV administration of 83 cc of Optiray 350, CT scan of the abdomen and pelvis is performed from the lung bases to the proximal femora. Images are reviewed in the axial, sagittal, and coronal planes. IV contrast was administered without complication. A dose lowering technique was utilized adhering to the principles of ALARA. The examination is degraded by streak artifact from metallic spinal hardware. CT DOSE: 374.02 mGy.cm FINDINGS: Lung bases: The heart is enlarged noting a moderate pericardial effusion. The coronary arteries and mitral annulus are densely calcified. There are trace pleural effusions with dependent atelectasis. Interlobular septal thickening in the lower lobes suggest congestive failure. There is a moderate to large hiatal hernia. Liver: The contrast-enhanced liver is normal in size, contour, and attenuation. There is mild to moderate intrahepatic biliary ductal dilatation. The hepatic veins and portal veins are patent. Gallbladder: Surgically absent noting clips in the gallbladder fossa. Spleen: Normal in size and attenuation. Pancreas: Moderately atrophic and grossly unremarkable. Adrenal glands: Unremarkable. Kidneys: The contrast enhanced kidneys demonstrate cortical atrophy and are with out hydronephrosis. The kidneys enhance symmetrically. Abdominal vasculature: The abdominal aorta is normal in course and caliber noting advanced atherosclerotic calcification. There is high-grade stenosis of the left iliac artery seen on image #211. Bowel: The proximal small bowel loops are dilated and fluid-filled, measuring up to 2.7 cm diameter. A transition point is identified in the central pelvis on image #285. The distal small bowel and colon are decompressed comment appearance is consistent with a small bowel obstruction. There is trace interloop fluid. No focal or thick walled bowel loops are identified and there is no pneumatosis intestinalis or portal venous gas. There is significant rectosigmoid fecal retention. The appendix is not identified and reported surgically absent. Peritoneum: There is trace perihepatic ascites, as well as trace free fluid in the pelvis. No intraperitoneal free air is identified. Lymphadenopathy: None. Pelvic viscera: The bladder is normal as visualized. The uterus is surgically absent. No adnexal lesion is seen. Skeletal structures: The skeletal structures are osteopenic. There is advanced lumbosacral spondylosis with evidence of multilevel lumbar spinal fusion. There is also scoliosis. No lytic or blastic lesions are seen. Arthritic change is seen in the hips. IMPRESSION: 1. Small bowel obstruction. A transition point is identified in the central pelvis, and this is likely on the basis of adhesions. 2. There is trace interloop fluid. No focally thick-walled bowel are identified. There is no intraperitoneal free air, pneumatosis intestinalis, or portal venous gas. 3. Cardiomegaly with evidence of congestive failure. 4. Trace pleural effusions. 5. A pericardial effusion is new from 2015. 6. Moderate to large hiatal hernia. 7. Additional findings as above. ACT 112: Negative or not required by law. Electronically signed by: Bernabe Pressley M.D. 06/15/2022 5:53 PM Code Status & VTE Plan VTE Prophylaxis Plan VTE Prophylaxis will be ordered: Yes
[2022-06-15 18:47] LABS: Appearance Urine Clear (Clear); Bacteria Urine Automated Negative (Negative); Bilirubin Urine Negative (Negative); Blood Urine Negative (Negative); Color Urine Yellow; Epithelial Cell Urine Auto 20-30 /lpf (0-5); Glucose Urine UA Negative (Negative); Ketones Urine Negative (Negative); Leukocyte Esterase Urine Negative (Negative); Nitrite Urine Negative (Negative); Protein Urine 2+ (Negative); RBC Urine Automated 0-4 /hpf (0-4); Specific Gravity Urine 1.024 (1.000-1.030); Urobilinogen Urine Negative (Negative)
[2022-06-15] MEDS ORDERED: ACETAMINOPHEN 1,000 MG/100 ML VIAL IV STA (19:09)
[2022-06-15] MEDS ORDERED: NITROGLYCERIN SL 0.4 MG/TAB TAB SL PRN (20:36)
[2022-06-15] MEDS: hydrALAZINE TAB 50 MG TAB PO SCH (22:39)
[2022-06-15] MEDS: carvediloL 6.25 MG TAB PO SCH (22:39)
[2022-06-15] MEDS: SODIUM CHLORIDE 0.9% 1000ML 1,000 ML IV SCH (22:40)
[2022-06-16] MEDS: ACETAMINOPHEN 1,000 MG/100 ML VIAL IV SCH ×3 (02:25→21:45)
[2022-06-16 02:34] LABS: Hematocrit (blood only) 25.3 % (34.1-44.9); Hemoglobin 8.2 g/dl (12.0-16.0); Mean Corpuscular Hemoglobin 28.8 pg (25.0-34.0); Mean Corpuscular Hgb Conc 32.4 g/dL (32.0-36.0); Mean Corpuscular Volume 88.8 fL (80.0-100.0); Mean Platelet Volume 10.3 fL (9.4-12.3); Platelet Count 233 K/uL (130-400); RDW Coefficient of Variation 15.3 % (11.5-14.5); RDW Standard Deviation 49.7 fL (36.4-46.3); Red Blood Count 2.85 M/uL (3.93-5.22); White Blood Count 10.12 K/ul (4.8-10.8)
[2022-06-16 02:56] LABS: BUN Creatinine Ratio 41.6 (10-20); Calcium 8.7 mg/dl (8.5-10.1); Creatinine Clr Calc Pharmacy 33.8 ml/min; Est GFR (African American) 47.4 ml/min; Est GFR (Non-African American) 40.9 ml/min; Potassium 4.7 mmol/L (3.5-5.1)
--- NOTE | 2022-06-16 07:19 | Surgery Consultation ---
Date of Consultation June 16, 2022 Assessment & Plan (1) SBO (small bowel obstruction): (2) Nausea & vomiting: (3) Acute exacerbation of congestive heart failure: Plan 77-year-old frail woman with multiple medical problems including significant unstable coronary disease presents with small bowel obstruction. She has a history of multiple operations in the past. On exam, she does not exhibit peritonitis signs. White blood cell count is 10. She seems to be improving. We will treat her conservatively for now with bowel rest and IV fluid hydration. We will await return of bowel function. She is incredibly high risk for surgery due to her unstable coronary disease, and if surgical intervention were required, she may need to be transferred to a tertiary care center. We will continue to follow her while she is here. History of Present Illness Reason for Consultation: Small bowel obstruction Requesting Physician: Marilyn Abrams DO Attending Physician: Marilyn Abrams DO History of Present Illness 77-year-old female presented to the emergency department with epigastric and left upper quadrant pain that began approximately 3 hours prior to arrival. The pain was sharp and she had some associated nausea and vomiting. She denies a history of small bowel obstruction in the past. She has a significant surgical history including appendectomy, cholecystectomy, hysterectomy, BTL, umbilical hernia repair. She is on chronic opioids for arthritis. On seeing her today, she states that she feels significant improvement. Her pain is dull and diffuse in the abdomen. She denies nausea or vomiting at this time. She denies fevers or chills. She was recently evaluated by CT surgery at [facility], referred to the TAVR clinic. She underwent a cardiac cath on 05/31/2022 that showed left main CAD of 60% stenosis. This is in the setting of progressive shortness of breath with most activities over the last couple of months impairing her activities of daily living. They weighed the question of whether to do a CABG versus high risk PCR than TAVR. Her symptoms are attributed to both her coronary disease and at least moderate aortic stenosis. It was felt that surgery to replace her aortic valve and cardiac bypass would be an elevated risk due to her frail state and limited mobility. Dr. Son is planning high risk PCI on July 06 at [facility]. Further interventions on her aortic valve have been deferred. Of note, she does have an elevated troponin. Allergies Allergy/AdvReac Type Severity Reaction Status Date / Time gabapentin AdvReac Intermediate cough Verified 06/15/22 16:08 oxycodone AdvReac Intermediate "makes me Verified 06/15/22 16:08 go crazy" ramipril AdvReac Intermediate cough Verified 06/15/22 16:08 Home Medications Medication Instructions Recorded Confirmed Type amlodipine 10 mg tablet 10 mg PO QAM 07/01/19 06/15/22 History cranberry concentrate-ascorbic 4 cap PO DAILY 07/01/19 06/15/22 History acid 140 mg-100 mg capsule (Cranberry Plus Vitamin C) cyanocobalamin (vitamin B-12) 2,500 mcg PO QPM 07/01/19 06/15/22 History 2,500 mcg tablet docusate sodium 100 mg tablet 100 - 200 mg PO QPM 07/01/19 06/15/22 History (Stool Softener) hydrocodone 10 mg-acetaminophen 1 tab PO BID 07/01/19 06/15/22 History 325 mg tablet losartan 50 mg tablet 50 mg PO DAILY 07/01/19 06/15/22 History nitroglycerin 0.4 mg sublingual 0.4 mg sublingual UD PRN Angina 07/01/19 06/15/22 History tablet omeprazole 20 mg capsule,delayed 20 mg PO QAM 07/01/19 06/15/22 History release pravastatin 40 mg tablet 40 mg PO QAM 07/01/19 06/15/22 History aspirin 81 mg chewable tablet 81 mg PO DAILY 09/01/20 06/15/22 History carvedilol 6.25 mg tablet 6.25 mg PO BID #60 tabs 10/04/20 06/15/22 Rx torsemide 10 mg tablet 10 mg PO DAILY 03/23/22 06/15/22 History acetaminophen 650 mg 650 mg PO Q8H PRN Pain 06/15/22 06/15/22 History tablet,extended release ascorbic acid (vitamin C) 500 mg 500 mg PO DAILY 06/15/22 06/15/22 History tablet (Vitamin C) cholecalciferol (vitamin D3) 25 25 mcg PO DAILY 06/15/22 06/15/22 History mcg (1,000 unit) capsule (Vitamin D3) hydralazine 50 mg tablet 50 mg PO TID 06/15/22 06/15/22 History pyridoxine (vitamin B6) 50 mg 50 mg PO DAILY 06/15/22 06/15/22 History tablet (Vitamin B-6) turmeric root extract 500 mg tablet 500 mg PO DAILY 06/15/22 06/15/22 History vitamin E 670 mg (1,000 unit) 670 mg PO DAILY 06/15/22 06/15/22 History capsule Patient History Medical History Acute exacerbation of congestive heart failure Aortic stenosis "moderately severe by echo September 2013" Chawla's esophagus Cardiac murmur Chronic back pain Chronic sialoadenitis CKD (chronic kidney disease) stage 3, GFR 30-59 ml/min Coronary artery disease "nonocclusive disease by cath [facility] [place] September 2013" COVID Esophageal motility disorder "noted on barium swallow 10/2014" Generalized weakness GERD (gastroesophageal reflux disease) History of esophageal dilatation Hyperlipidemia Hypertension Hypertensive crisis Leaky heart valve per pt aorta--follows with Dr. Gonzáles Myalgia Osteoarthritis Poor historian Surgical History History of appendectomy History of bilateral tubal ligation History of cardiac cath x3--last 12/2018 no stents History of carpal tunnel release of both wrists History of cholecystectomy History of colonoscopy History of esophagogastroduodenoscopy (EGD) History of hysterectomy History of lumbar spinal fusion History of lumpectomy cant remember which breast---benign fatty tissue History of sinus surgery History of tonsillectomy History of tooth extraction History of total left knee replacement (TKR) History of umbilical hernia repair Family History Other No family history of adverse response to anesthesia No family history of bleeding disorder Social History Smoking Status: Never smoker Second Hand Exposure: No; Do You Dip or Chew Tobacco: No; Hx Alcohol Use: No Hx Substance Use: No Preferred Language: Polish Communication Ability: Effective Lease Purchase Driver Required: No Beliefs That Will Affect Care: Jain Jain Beliefs: Would like to see hospital clerk marital status: / Current Living Situation: Alone Current Living Situation Comment: From home. Sons help daily. Other Information That Helps Us Care for You: No Feels Safe at Home: Yes Safety Concerns: Feels Safe At This Time Assistive Devices: Walker Review of Systems Review of Systems: All systems reviewed & are unremarkable except as noted in HPI & below Physical Exam Constitutional: + ill appearing, + thin and + frail appearing Neck: trachea midline, no thyromegaly Respiratory: normal respiratory effort; no respiratory distress Cardiovascular: Rate/Rhythm: regular rate and regular rhythm Gastrointestinal (Abdomen): Inspection/Auscultation: abdomen normal to inspection; abdomen not distended Percussion/Palpation: + abdomen tender (Mild diffuse tenderness mostly in the upper abdomen) and abdomen soft; no guarding and abdomen not rigid Skin: no rashes, warm and dry Psychiatric: A+Ox3, euthymic affect Results & Data ([facility]) Vital Signs (Past 12 Hours) Vital Signs Temp Pulse Pulse Resp BP Pulse Ox O2 Del Method 06/16/22 04:00 37 C 57 L 18 121/64 90 Room Air 06/15/22 22:00 37.2 C 60 18 129/50 L 93 Room Air 06/15/22 20:36 Room Air 06/15/22 22:15 62 06/15/22 20:45 63 06/15/22 21:00 36.9 C 62 16 169/55 H 93 Room Air Diagnostic Findings 06/16/22 06/16/22 06/16/22 Range/Units 02:26 02:26 02:26 WBC 10.12 (4.8-10.8) K/ul RBC 2.85 L (3.93-5.22) M/uL Hgb 8.2 L (12.0-16.0) g/dl Hct 25.3 L (34.1-44.9) % MCV 88.8 (80.0-100.0) fL MCH 28.8 (25.0-34.0) pg MCHC 32.4 (32.0-36.0) g/dL RDW Std Deviation 49.7 H (36.4-46.3) fL RDW Coeff of Breanne 15.3 H (11.5-14.5) % Plt Count 233 (130-400) K/uL MPV 10.3 (9.4-12.3) fL Immature Gran % (Auto) % Neut % (Auto) % Lymph % (Auto) % Weakley % (Auto) % Eos % (Auto) % Baso % (Auto) % Neut # (Auto) (1.4-6.5) K/uL Lymph # (Auto) (1.2-3.4) K/uL Weakley # (Auto) (0.24-0.82) K/uL Eos # (Auto) (0-0.50) K/uL Baso # (Auto) (0-0.2) K/uL Immature Gran # (Auto) (0.00-0.02) K/uL PT (9.0-12.0) Seconds INR (0.9-1.1) Sodium 137 (136-145) mmol/L Potassium 4.7 (3.5-5.1) mmol/L Chloride 106 (98-107) mmol/L Carbon Dioxide 24 (21-32) mmol/L Anion Gap 7 (3-11) BUN 52 H (6-23) mg/dl Creatinine 1.25 H (0.6-1.2) mg/dl Est Cr Clr Drug Dosing 33.8 ml/min Est GFR ( Amer) 47.4 ml/min Est GFR (Non-Af Amer) 40.9 ml/min BUN/Creatinine Ratio 41.6 H (10-20) Glucose 102 H (70-99(Fasting)) mg/dl Calcium 8.7 (8.5-10.1) mg/dl Total Bilirubin (0.2-1.0) mg/dl AST (13-39) U/L ALT (7-52) U/L Alkaline Phosphatase (34-104) U/L Troponin I High Sens 44.1 H (0-14) pg/ml B-Natriuretic Peptide (0-100) pg/ml Total Protein (6.0-8.3) gm/dl Albumin (3.4-5.0) gm/dl Globulin (2.5-4.0) gm/dl Albumin/Globulin Ratio (0.9-2) Lipase (11-82) U/L Urine Color Urine Appearance (Clear) Urine pH (4.5-7.5) Ur Specific Valencia (1.000-1.030) Urine Protein (Negative) Urine Glucose (UA) (Negative) Urine Ketones (Negative) Urine Blood (Negative) Urine Nitrite (Negative) Urine Bilirubin (Negative) Urine Urobilinogen (Negative) Ur Leukocyte Esterase (Negative) Urine WBC (Auto) (0-5) /hpf Urine RBC (Auto) (0-4) /hpf U Hyaline Cast (Auto) (0-5) /lpf U Epithel Cells (Auto) (0-5) /lpf Urine Bacteria (Auto) (Negative) SARS-CoV-2, RNA, NAAT (NEGATIVE) 06/15/22 06/15/22 06/15/22 Range/Units 20:41 20:40 18:30 WBC (4.8-10.8) K/ul RBC (3.93-5.22) M/uL Hgb (12.0-16.0) g/dl Hct (34.1-44.9) % MCV (80.0-100.0) fL MCH (25.0-34.0) pg MCHC (32.0-36.0) g/dL RDW Std Deviation (36.4-46.3) fL RDW Coeff of Breanne (11.5-14.5) % Plt Count (130-400) K/uL MPV (9.4-12.3) fL Immature Gran % (Auto) % Neut % (Auto) % Lymph % (Auto) % Weakley % (Auto) % Eos % (Auto) % Baso % (Auto) % Neut # (Auto) (1.4-6.5) K/uL Lymph # (Auto) (1.2-3.4) K/uL Weakley # (Auto) (0.24-0.82) K/uL Eos # (Auto) (0-0.50) K/uL Baso # (Auto) (0-0.2) K/uL Immature Gran # (Auto) (0.00-0.02) K/uL PT (9.0-12.0) Seconds INR (0.9-1.1) Sodium (136-145) mmol/L Potassium (3.5-5.1) mmol/L Chloride (98-107) mmol/L Carbon Dioxide (21-32) mmol/L Anion Gap (3-11) BUN (6-23) mg/dl Creatinine (0.6-1.2) mg/dl Est Cr Clr Drug Dosing ml/min Est GFR ( Amer) ml/min Est GFR (Non-Af Amer) ml/min BUN/Creatinine Ratio (10-20) Glucose (70-99(Fasting)) mg/dl Calcium (8.5-10.1) mg/dl Total Bilirubin (0.2-1.0) mg/dl AST (13-39) U/L ALT (7-52) U/L Alkaline Phosphatase (34-104) U/L Troponin I High Sens 39.6 H (0-14) pg/ml B-Natriuretic Peptide 815 H (0-100) pg/ml Total Protein (6.0-8.3) gm/dl Albumin (3.4-5.0) gm/dl Globulin (2.5-4.0) gm/dl Albumin/Globulin Ratio (0.9-2) Lipase (11-82) U/L Urine Color Urine Appearance (Clear) Urine pH (4.5-7.5) Ur Specific Valencia (1.000-1.030) Urine Protein (Negative) Urine Glucose (UA) (Negative) Urine Ketones (Negative) Urine Blood (Negative) Urine Nitrite (Negative) Urine Bilirubin (Negative) Urine Urobilinogen (Negative) Ur Leukocyte Esterase (Negative) Urine WBC (Auto) (0-5) /hpf Urine RBC (Auto) (0-4) /hpf U Hyaline Cast (Auto) (0-5) /lpf U Epithel Cells (Auto) (0-5) /lpf Urine Bacteria (Auto) (Negative) SARS-CoV-2, RNA, NAAT NEGATIVE (NEGATIVE) 06/15/22 06/15/22 06/15/22 Range/Units 18:30 15:22 15:22 WBC (4.8-10.8) K/ul RBC (3.93-5.22) M/uL Hgb (12.0-16.0) g/dl Hct (34.1-44.9) % MCV (80.0-100.0) fL MCH (25.0-34.0) pg MCHC (32.0-36.0) g/dL RDW Std Deviation (36.4-46.3) fL RDW Coeff of Breanne (11.5-14.5) % Plt Count (130-400) K/uL MPV (9.4-12.3) fL Immature Gran % (Auto) % Neut % (Auto) % Lymph % (Auto) % Weakley % (Auto) % Eos % (Auto) % Baso % (Auto) % Neut # (Auto) (1.4-6.5) K/uL Lymph # (Auto) (1.2-3.4) K/uL Weakley # (Auto) (0.24-0.82) K/uL Eos # (Auto) (0-0.50) K/uL Baso # (Auto) (0-0.2) K/uL Immature Gran # (Auto) (0.00-0.02) K/uL PT 11.5 (9.0-12.0) Seconds INR 1.1 (0.9-1.1) Sodium 136 (136-145) mmol/L Potassium 4.2 (3.5-5.1) mmol/L Chloride 103 (98-107) mmol/L Carbon Dioxide 23 (21-32) mmol/L Anion Gap 10 (3-11) BUN 55 H (6-23) mg/dl Creatinine 1.49 H (0.6-1.2) mg/dl Est Cr Clr Drug Dosing 29.2 ml/min Est GFR ( Amer) 38.3 ml/min Est GFR (Non-Af Amer) 33.1 ml/min BUN/Creatinine Ratio 36.9 H (10-20) Glucose 152 H (70-99(Fasting)) mg/dl Calcium 9.1 (8.5-10.1) mg/dl Total Bilirubin 0.5 (0.2-1.0) mg/dl AST 20 (13-39) U/L ALT 9 (7-52) U/L Alkaline Phosphatase 59 (34-104) U/L Troponin I High Sens 31.0 H D (0-14) pg/ml B-Natriuretic Peptide (0-100) pg/ml Total Protein 7.3 (6.0-8.3) gm/dl Albumin 3.7 (3.4-5.0) gm/dl Globulin 3.6 (2.5-4.0) gm/dl Albumin/Globulin Ratio 1.0 (0.9-2) Lipase 25 (11-82) U/L Urine Color Yellow Urine Appearance Clear (Clear) Urine pH 5.0 (4.5-7.5) Ur Specific Valencia 1.024 (1.000-1.030) Urine Protein 2+ H (Negative) Urine Glucose (UA) Negative (Negative) Urine Ketones Negative (Negative) Urine Blood Negative (Negative) Urine Nitrite Negative (Negative) Urine Bilirubin Negative (Negative) Urine Urobilinogen Negative (Negative) Ur Leukocyte Esterase Negative (Negative) Urine WBC (Auto) 1-5 (0-5) /hpf Urine RBC (Auto) 0-4 (0-4) /hpf U Hyaline Cast (Auto) 1-5 (0-5) /lpf U Epithel Cells (Auto) 20-30 H (0-5) /lpf Urine Bacteria (Auto) Negative (Negative) SARS-CoV-2, RNA, NAAT (NEGATIVE) 06/15/22 Range/Units 15:22 WBC 9.58 (4.8-10.8) K/ul RBC 3.16 L (3.93-5.22) M/uL Hgb 9.0 L (12.0-16.0) g/dl Hct 27.8 L (34.1-44.9) % MCV 88.0 (80.0-100.0) fL MCH 28.5 (25.0-34.0) pg MCHC 32.4 (32.0-36.0) g/dL RDW Std Deviation 48.9 H (36.4-46.3) fL RDW Coeff of Breanne 15.0 H (11.5-14.5) % Plt Count 245 (130-400) K/uL MPV 10.7 (9.4-12.3) fL Immature Gran % (Auto) 0.4 % Neut % (Auto) 85.2 % Lymph % (Auto) 7.0 % Weakley % (Auto) 4.1 % Eos % (Auto) 2.5 % Baso % (Auto) 0.8 % Neut # (Auto) 8.16 H (1.4-6.5) K/uL Lymph # (Auto) 0.67 L (1.2-3.4) K/uL Weakley # (Auto) 0.39 (0.24-0.82) K/uL Eos # (Auto) 0.24 (0-0.50) K/uL Baso # (Auto) 0.08 (0-0.2) K/uL Immature Gran # (Auto) 0.04 H (0.00-0.02) K/uL PT (9.0-12.0) Seconds INR (0.9-1.1) Sodium (136-145) mmol/L Potassium (3.5-5.1) mmol/L Chloride (98-107) mmol/L Carbon Dioxide (21-32) mmol/L Anion Gap (3-11) BUN (6-23) mg/dl Creatinine (0.6-1.2) mg/dl Est Cr Clr Drug Dosing ml/min Est GFR ( Amer) ml/min Est GFR (Non-Af Amer) ml/min BUN/Creatinine Ratio (10-20) Glucose (70-99(Fasting)) mg/dl Calcium (8.5-10.1) mg/dl Total Bilirubin (0.2-1.0) mg/dl AST (13-39) U/L ALT (7-52) U/L Alkaline Phosphatase (34-104) U/L Troponin I High Sens (0-14) pg/ml B-Natriuretic Peptide (0-100) pg/ml Total Protein (6.0-8.3) gm/dl Albumin (3.4-5.0) gm/dl Globulin (2.5-4.0) gm/dl Albumin/Globulin Ratio (0.9-2) Lipase (11-82) U/L Urine Color Urine Appearance (Clear) Urine pH (4.5-7.5) Ur Specific Valencia (1.000-1.030) Urine Protein (Negative) Urine Glucose (UA) (Negative) Urine Ketones (Negative) Urine Blood (Negative) Urine Nitrite (Negative) Urine Bilirubin (Negative) Urine Urobilinogen (Negative) Ur Leukocyte Esterase (Negative) Urine WBC (Auto) (0-5) /hpf Urine RBC (Auto) (0-4) /hpf U Hyaline Cast (Auto) (0-5) /lpf U Epithel Cells (Auto) (0-5) /lpf Urine Bacteria (Auto) (Negative) SARS-CoV-2, RNA, NAAT (NEGATIVE) (1) Nausea & vomiting Vomiting type: unspecified Qualified Code(s): R11.2 - Nausea with vomiting, unspecified
[2022-06-16] MEDS: MoRPHine SULFATE 4 MG/ML 1 ML CARP\\VIAL IV PRN (08:58)
--- NOTE | 2022-06-16 10:55 | Cardiology Consultation ---
Date of Consultation June 16, 2022 Assessment & Plan (1) SBO (small bowel obstruction): (2) Aortic stenosis: (3) CHF (congestive heart failure): (4) ASCVD (arteriosclerotic cardiovascular disease): Plan Small bowel obstruction. Patient has been evaluated by the hospitalist team and general surgery with recommendation for conservative management with bowel rest and cautious IV fluid hydration. Agree with recommendation for transfer to tertiary care center ([facility]) if patient fails conservative management. ASCVD. Patient with stable angina symptoms. Continue medical management as prescribed, as long as the patient is able to take oral medications. Patient is scheduled for high risk percutaneous coronary intervention of the left main coronary artery stenosis at [facility] on July 06, 2022 Pericardial effusion. Check EKG. Refer for resting echocardiography Valvular heart disease. Continue medication management for now. Supervising Physician Co-Signing Physician Notes Supervising Physician Attestation: I have personally performed a history and physical examination on the patient. I agree with the physician data control assistant's findings and plan as documented with the following additions. Subjective: Ongoing abdominal discomfort noted Exam: Cardiovascular regular rhythm, II/ systolic murmur noted at right sternal border, no edema Abdominal: Mild diffuse abdominal pain noted on palpation Data: Echocardiogram performed today and reviewed independently: The study is technically adequate for the evaluation of the referral indication. Compared to the report of the outpatient study dated 02/16/2022, the degree of aortic stenosis, and the small circumferential pericardial effusion are unchanged. Severe pulmonary hypertension noted on the current study, however pulmonary hypertension also noted at the time of recent cardiac catheterization performed 05/31/2022, pulmonary artery pressure measured to be 61/13 mmHg with mean pulmonary artery pressure of 37 mm Hg at that time. There is moderate concentric left ventricular hypertrophy. The left ventricular wall motion is normal. The LV Ejection Fraction = 60-65%. The left atrium is severely dilated. The aortic valve has three leaflets. The aortic valve is severely calcified. Severe aortic stenosis suggested by 2D imaging, with borderline severe present by Doppler assessment. There is mild mitral regurgitation. There is mild tricuspid regurgitation. A small circumferential pericardial effusion is present. Tamponade is absent. EKG performed 06/15/2022: Sinus bradycardia 59 bpm with incomplete right bundle branch block, age-indeterminate septal infarction pattern, unchanged compared to 03/23/2022. Repeat tracing today at 955 relatively unchanged, R wave progression improved. CTA, negative for pulmonary embolism. Assessment and Plan: As noted above. Patient with small bowel obstruction. -Mild, flat elevation in troponin noted. Stable EKG findings. Stable echo findings. I do not think her presentation is suggestive of an acute coronary syndrome. Patient with known 60% left main disease. Previously seen by CT surgery for evaluation of CABG and AVR given 60% left main disease and concomitant moderate aortic stenosis. Patient felt to be a poor surgical candidate, and high risk of main intervention tentatively planned as outpatient as noted. With regards to the pericardial effusion. This appears small by echo criteria, and is unchanged compared to the previous outpatient echo dating back to January. Continue cautious fluids, bowel rest. Agree that if general surgery intervention becomes necessary, would recommend transfer to tertiary center. Cameron Sanabria DO History of Present Illness Reason for Consultation: "Angina, pericard eff, severe CAD, planned PCI, PERDUE" Requesting Physician: Marilyn Abrams DO Attending Physician: Marilyn Abrams DO History of Present Illness Georgina Pugh is a complex 77-year-old female who presented to [facility] via ambulance in the afternoon of June 15, 2022 with significant sharp epigastric/abdominal pain that radiates into the chest, beginning approximately 3 hours prior to calling for help, with associated nausea and vomiting. Last episode of emesis was in the ambulance. Antiemetics and IV morphine did aided symptoms transiently with patient noting improvement in symptoms overnight, return of symptoms earlier this morning. CT scan of the abdomen and pelvis on June 15, 2022 revealed a small bowel obstruction with transition point identified in the central pelvis, likely on the basis of adhesions, without intraperitoneal free air, pneumatosis intestinalis, or portal venous gas. Imaging also revealed evidence of congestive heart failure, trace pleural effusions, moderate pericardial effusion, moderate to large hiatal hernia, and high grade stenosis of the left iliac artery Cardiology consulted due to "Angina, pericardial effusion, severe CAD, planned PCI, PERDUE" Patient describes stable angina symptoms, left sided chest tightness with activity with associated shortness of breath. High-sensitivity troponin mildly elevated at 39.6 and 44.1 pg/mL. Continuous telemetry monitoring personally reviewed, revealing sinus bradycardia/sinus rhythm without significant arrhythmias. Chart review reveals a small (less than 5 mm) circumferential pericardial effusion dating back to the time of transesophageal echocardiography at [facility] on May 16, 2022. She does not have classic symptoms to suggest pericarditis. Again, no EKGs are available for review this admission. Patient hospitalized at [facility] in March 2022 with acute decompensated heart failure, COVID-19, hypertensive urgency Work Adjustment Instructor is Dr. Gonzáles with last outpatient evaluation on March 10, 2022. Patient is following with the [facility], Dr. Son. Diagnostic cardiac catheterization on May 31, 2022 revealed an eccentric calcified 60% ostial LM stenosis, mild mild LAD disease, 30% mid LCX stenosis, and mild to moderate diffuse RCA disease (dominant with rPDA and rPL). Fertilizer Applicator bilateral femoral artery disease noted along with a possibly occluded left iliac artery. The mean gradient was 14 mmHg. The Valve area was 1.38 cm2 Right Heart Catheterization Measurements: RA = 5 mmHg. RV = 70/8 mmHg. PA = 61/13 mmHg. Mean PA pressure = 37 mmHg. PCWP = 22 mmHg. PVR= 2.5 [address] Unit. Cardiac Output = 6.08 L/min, Cardiac Index = 3.56 L/min/m2 by Clarissa. Cardiac Output = 6.20 L/min, Cardiac Index = 3.63 L/min/m2 by Thermodilution Patient evaluated by cardiothoracic surgery on June 02, 2022, Dr. Adorno. CT surgical intervention was felt to be an extremely elevated risk. Patient scheduled for high risk left main intervention at [facility] on July 06, 2020 with aortic valve intervention to be considered down the road. Past Medical and Surgical History: ASCVD. Diagnostic cardiac catheterization last on May 31, 2022 demonstrated an eccentric calcified 60% ostial LM stenosis, mild mild LAD disease, 30% mid LCX stenosis, and mild to moderate diffuse RCA disease (dominant with rPDA and rPL). Fertilizer Applicator bilateral femoral artery disease noted along with a possibly occluded left iliac artery. The mean gradient was 14 mmHg. The Valve area was 1.38 cm2 Valvular heart disease with a history of rheumatic fever as a child, mixed aortic valve disease, moderate mitral valve disease Chronic diastolic heart failure Pulmonary hypertension Chronic kidney disease Hypertension Dyslipidemia COPD Carotid artery stenosis GERD Chawla's esophagus Hiatal hernia Dysphagia Esophageal stricture Anemia, iron deficiency Degenerative joint disease Cervical spinal stenosis Appendectomy Cholecystectomy, lysis of adhesions, incisional hernia repair with Atrium mesh, May 2012 Oophorectomy Hysterectomy Bilateral tubal ligation Umbilical hernia repair Carpal tunnel syndrome Lumbar spine fusion Lumpectomy Sinus surgery Tonsillectomy Left knee replacement Family History: Father at the age of 70 due to bone cancer and esophageal cancer. Mother in her 70s with complications from Alzheimers. Social History: Prior smoker, 3 ppd x 30 years. No significant alcohol. No illegal drug use. ([place]). Three children. Previously worked for the [employer]. Allergies Allergy/AdvReac Type Severity Reaction Status Date / Time gabapentin AdvReac Intermediate cough Verified 06/15/22 16:08 oxycodone AdvReac Intermediate "makes me Verified 06/15/22 16:08 go crazy" ramipril AdvReac Intermediate cough Verified 06/15/22 16:08 Home Medications Medication Instructions Recorded Confirmed Type amlodipine 10 mg tablet 10 mg PO QAM 07/01/19 06/15/22 History cranberry concentrate-ascorbic 4 cap PO DAILY 07/01/19 06/15/22 History acid 140 mg-100 mg capsule (Cranberry Plus Vitamin C) cyanocobalamin (vitamin B-12) 2,500 mcg PO QPM 07/01/19 06/15/22 History 2,500 mcg tablet docusate sodium 100 mg tablet 100 - 200 mg PO QPM 07/01/19 06/15/22 History (Stool Softener) hydrocodone 10 mg-acetaminophen 1 tab PO BID 07/01/19 06/15/22 History 325 mg tablet losartan 50 mg tablet 50 mg PO DAILY 07/01/19 06/15/22 History nitroglycerin 0.4 mg sublingual 0.4 mg sublingual UD PRN Angina 07/01/19 06/15/22 History tablet omeprazole 20 mg capsule,delayed 20 mg PO QAM 07/01/19 06/15/22 History release pravastatin 40 mg tablet 40 mg PO QAM 07/01/19 06/15/22 History aspirin 81 mg chewable tablet 81 mg PO DAILY 09/01/20 06/15/22 History carvedilol 6.25 mg tablet 6.25 mg PO BID #60 tabs 10/04/20 06/15/22 Rx torsemide 10 mg tablet 10 mg PO DAILY 03/23/22 06/15/22 History acetaminophen 650 mg 650 mg PO Q8H PRN Pain 06/15/22 06/15/22 History tablet,extended release ascorbic acid (vitamin C) 500 mg 500 mg PO DAILY 06/15/22 06/15/22 History tablet (Vitamin C) cholecalciferol (vitamin D3) 25 25 mcg PO DAILY 06/15/22 06/15/22 History mcg (1,000 unit) capsule (Vitamin D3) hydralazine 50 mg tablet 50 mg PO TID 06/15/22 06/15/22 History pyridoxine (vitamin B6) 50 mg 50 mg PO DAILY 06/15/22 06/15/22 History tablet (Vitamin B-6) turmeric root extract 500 mg tablet 500 mg PO DAILY 06/15/22 06/15/22 History vitamin E 670 mg (1,000 unit) 670 mg PO DAILY 06/15/22 06/15/22 History capsule Patient History Medical History Acute exacerbation of congestive heart failure Aortic stenosis "moderately severe by echo September 2013" Chawla's esophagus Cardiac murmur Chronic back pain Chronic sialoadenitis CKD (chronic kidney disease) stage 3, GFR 30-59 ml/min Coronary artery disease "nonocclusive disease by cath [facility] September 2013" COVID Esophageal motility disorder "noted on barium swallow 10/2014" Generalized weakness GERD (gastroesophageal reflux disease) History of esophageal dilatation Hyperlipidemia Hypertension Hypertensive crisis Leaky heart valve per pt aorta--follows with Dr. Gonzáles Myalgia Osteoarthritis Poor historian Surgical History History of appendectomy History of bilateral tubal ligation History of cardiac cath x3--last 12/2018 no stents History of carpal tunnel release of both wrists History of cholecystectomy History of colonoscopy History of esophagogastroduodenoscopy (EGD) History of hysterectomy History of lumbar spinal fusion History of lumpectomy cant remember which breast---benign fatty tissue History of sinus surgery History of tonsillectomy History of tooth extraction History of total left knee replacement (TKR) History of umbilical hernia repair Family History Other No family history of adverse response to anesthesia No family history of bleeding disorder Social History Smoking Status: Never smoker Second Hand Exposure: No; Do You Dip or Chew Tobacco: No; Hx Alcohol Use: No Hx Substance Use: No Preferred Language: Surinamese Communication Ability: Effective Mathematical Sciences Professor Required: No Beliefs That Will Affect Care: Gnosticism Gnosticism Beliefs: Would like to see cardiac monitor technician marital status: / Current Living Situation: Alone Current Living Situation Comment: From home. Sons help daily. Other Information That Helps Us Care for You: No Feels Safe at Home: Yes Safety Concerns: Feels Safe At This Time Assistive Devices: Glasses and Walker Review of Systems Review of Systems: Complete Review of Systems is as stated above, negative, or noncontributory Physical Exam Physical Exam: General: A&Ox3. Ill appearing. Frail. Normal respiratory rate, without respiratory distress HENT: Normocephalic. Atraumatic. Eyes: PER. Conjunctiva pink, sclera pale. Neck: Bilateral carotid bruits. No JVD. Heart: Regular at 70 bpm. Grade III/ systolic murmur. No diastolic murmur appreciated. No rub. Lungs: Diminished. Decreased. Right basilar rales. Abdomen: Hypoactive bowel sounds. Diffuse tenderness in the upper abdomen. Extremities: No clubbing, cyanosis, or significant edema. Legs are tender to mild palpation Limited neurological examination is without focal deficits. Pulses: radial=2/4, posterior tibial=0/4. Results & Data ([facility]) Vital Signs (Past 12 Hours) Vital Signs Temp Pulse Pulse Resp BP Pulse Ox O2 Del Method 06/16/22 07:39 58 L 06/16/22 07:37 37.2 C 58 L 18 135/52 L 94 Room Air 06/16/22 04:00 37 C 57 L 18 121/64 90 Room Air Laboratory Results Cardiac Enzymes 06/15/22 06/15/22 06/15/22 Range/Units 15:22 20:40 20:41 AST 20 (13-39) U/L Troponin I High Sens 31.0 H D 39.6 H (0-14) pg/ml B-Natriuretic Peptide 815 H (0-100) pg/ml 06/16/22 Range/Units 02:26 AST (13-39) U/L Troponin I High Sens 44.1 H (0-14) pg/ml B-Natriuretic Peptide (0-100) pg/ml Coagulation 06/15/22 06/15/22 Range/Units 15:22 20:40 PT 11.5 (9.0-12.0) Seconds B-Natriuretic Peptide 815 H (0-100) pg/ml CBC 06/15/22 06/16/22 Range/Units 15:22 02:26 WBC 9.58 10.12 (4.8-10.8) K/ul RBC 3.16 L 2.85 L (3.93-5.22) M/uL Hgb 9.0 L 8.2 L (12.0-16.0) g/dl Hct 27.8 L 25.3 L (34.1-44.9) % Plt Count 245 233 (130-400) K/uL Neut # (Auto) 8.16 H (1.4-6.5) K/uL Lymph # (Auto) 0.67 L (1.2-3.4) K/uL Lane # (Auto) 0.39 (0.24-0.82) K/uL Eos # (Auto) 0.24 (0-0.50) K/uL Baso # (Auto) 0.08 (0-0.2) K/uL Comprehensive Metabolic Panel 06/15/22 06/16/22 Range/Units 15:22 02:26 Sodium 136 137 (136-145) mmol/L Potassium 4.2 4.7 (3.5-5.1) mmol/L Chloride 103 106 (98-107) mmol/L Carbon Dioxide 23 24 (21-32) mmol/L BUN 55 H 52 H (6-23) mg/dl Creatinine 1.49 H 1.25 H (0.6-1.2) mg/dl Glucose 152 H 102 H (70-99(Fasting)) mg/dl Calcium 9.1 8.7 (8.5-10.1) mg/dl AST 20 (13-39) U/L ALT 9 (7-52) U/L Alkaline Phosphatase 59 (34-104) U/L Total Protein 7.3 (6.0-8.3) gm/dl Albumin 3.7 (3.4-5.0) gm/dl Intake and Output 11/24/22 11/25/22 11/25/22 22:59 06:59 14:59 Intake Total 100 / 200 100 / 200 Output Total Balance 99 / 199 100 / 199 Intake: IV 100 / 200 100 / 200 Acetaminophen 1,000 mg In 100 100 / 200 100 / 200 ml @ 400 mls/hr IV Q8H MELLISA Rx#: [id number] Output: # Bowel Movements Other: Other Intake Source Npo npo, sips # Unmeasured Voids 1 2 Weight 68.039 kg Weight Measurement Method Standing Scale Diagnostic Findings May 16, 2022 [place] Interpretation Summary ([facility], Dr. Augustine Paige): The qualitative LV ejection fraction is 65-69% (normal). No LV segmental wall motion abnormalities. Moderate aortic valve stenosis is present. Moderate aortic valve regurgitation is present. There is severe mitral annular calcification. Mild mitral stenosis is present. Moderate mitral regurgitation is present. A small (<5 mm) circumferential pericardial effusion is noted.
[2022-06-16] MEDS: SODIUM CHLORIDE 0.9% 1000ML 1,000 ML IV SCH ×2 (13:10→20:28)
[2022-06-16] MEDS ORDERED: oxyCODONE HCL IR 5 MG TAB (IMMEDIATE RELEASE) PO STA (13:55)
--- NOTE | 2022-06-16 14:00 | Hospitalist Progress Note ---
Date of Service June 16, 2022 Assessment & Plan (1) Small bowel obstruction: Plan: Acute SBO possibly related to scar tissue given multiple abdominal surgeries in the past vs ileus from chronic narcotic use. Keep NPO. She is not actively vomiting and no nausea so no need for NG tube at this time. Maintenance IVF, monitor closely for volume overload given known aortic stenosis. Currently no crackles or evidence of overload. Cont supportive care measures including adding dilaudid INDUSTRIAL TECHNOLOGIST. Given the intensity of the abdominal pain into the second day here, will order lactate to rule out mesenteric ischemia and KUB to exclude any evidence of perforation or free air. Other etiologies consider but not limited to aortic dissection which was ruled out on CT chest today and pancreatitis, however, had normal lipase yesterday. Appreciate general surgery evaluation and recs. (2) Coronary artery disease: Plan: Worsened cardiac disease seen during cath on 05/31/22. Plan for high risk [place] [facility] [place]. Ongoing anginal symptoms and dyspnea on exertion. Consult cardiology for help with monitoring and caring for these symptoms. She doesn't seem to be having any active ACS at this time. Cont medical management of ACS. (3) Pericardial effusion: Plan: Known small pericardial effusion historically. Repeat echo performed today with results pending. (4) Aortic stenosis: Plan: moderate. There was consideration for TAVR, however, she is considered higher risk with poor chance for good recovery. Deferred at this time. (5) Anemia: Plan: chronic and around her baseline. Likely related to chronic disease. No overt bleeding. Cont to monitor. (6) CKD (chronic kidney disease) stage 3, GFR 30-59 ml/min: Plan: Chronic, around baseline. Cont to monitor. (7) DVT prophylaxis: Plan: heparin Full Code Dispo-continue to monitor on telemetry. Pain is still very uncontrolled. INDUSTRIAL TECHNOLOGIST added. Encouraged ice chips for comfort and no significant water intake. Marilyn Abrams DO [facility] Hospitalist Admission and Anticipated Discharge Date Admission Date: June 15, 2022 Subjective 77 yo F presents with severe abdominal pain and SBO Today she is still not having any relief Denies flatues Reporting persistent severe epigastric to LUQ pain that is radiating to her back This is different than her cardiac angina pain which she had previously reported. DEnies nausea Remains NPO and although it was documented that patient did not receive meds today because she was NPO, she actually just continued to refuse them Tried oxycodone with no relief Both sons were at bedside during the two times I saw her Issues and plan were explained to both of them CT angio to rule out dissection was negative today and results were explained at bedside Discussed plan with primary rigging engineer of Systems Review of Systems: All systems reviewed negative except as indicated above. Physical Exam Physical Exam: CONSTITUTIONAL: frail, elderly vitals as above, moderate distress from abdominal pain EYES: normal conjunctivae, no scleral icterus ENT: external ear and nose normal, MMM NECK: trachea midline, RESPIRATORY: clear to auscultation bilaterally, no crackles, rales or wheezes, normal respiratory effort CARDIOVASCULAR: regular rate and rhythm, 3/6 murmur head throughout precordium and murmur heard in iliac arteries, also. No gallops or rubs, no JVD, no peripheral edema, CHEST: inspection of chest was normal GASTROINTESTINAL: soft, no bowel sounds were audible on auscultation, generalized tenderness and guarding in all quadrants, nondistended MUSCULOSKELETAL: strength 5/5 throughout, head is normocephalic and atraumatic SKIN: warm and dry NEUROLOGIC: CN 2-12 grossly intact, no sensory deficit, normal cognition, n ormal speech, no tremor PSYCHIATRIC: alert cooperative and oriented to person, place and time. Euthymic mood, makes good eye contact, language grossly intact, recent and remote memory grossly intact. Results & Data Results & Data ([facility]) Vital Signs (Past 12 Hours) Vital Signs Temp Pulse Pulse Resp BP Pulse Ox O2 Del Method 06/16/22 08:00 Room Air 06/16/22 11:07 37.2 C 59 L 18 134/57 L 94 Room Air 06/16/22 07:39 58 L 06/16/22 07:37 37.2 C 58 L 18 135/52 L 94 Room Air 06/16/22 04:00 37 C 57 L 18 121/64 90 Room Air Laboratory Results Short CBC 06/15/22 06/16/22 Range/Units 15:22 02:26 WBC 9.58 10.12 (4.8-10.8) K/ul Hgb 9.0 L 8.2 L (12.0-16.0) g/dl Hct 27.8 L 25.3 L (34.1-44.9) % Plt Count 245 233 (130-400) K/uL BMP 06/15/22 06/16/22 15:22 02:26 Sodium 136 137 Potassium 4.2 4.7 Chloride 103 106 Carbon Dioxide 23 24 BUN 55 H 52 H Creatinine 1.49 H 1.25 H Glucose 152 H 102 H Calcium 9.1 8.7 Liver Function 06/15/22 Range/Units 15:22 Total Bilirubin 0.5 (0.2-1.0) mg/dl AST 20 (13-39) U/L ALT 9 (7-52) U/L Alkaline Phosphatase 59 (34-104) U/L Albumin 3.7 (3.4-5.0) gm/dl Urine 06/15/22 Range/Units 18:30 Urine Color Yellow Urine Appearance Clear (Clear) Urine pH 5.0 (4.5-7.5) Ur Specific [place] 1.024 (1.000-1.030) Urine Protein 2+ H (Negative) Urine Glucose (UA) Negative (Negative) Medications Administered Current Inpatient Medications Amlodipine Besylate (Amlodipine Besylate 5 Mg Tab) 10 mg PO QAM MELLISA Stop: 07/16/22 08:59 Aspirin (Aspirin 81 Mg Chew) 81 mg PO DAILY MELLISA Stop: 07/16/22 08:59 Carvedilol (Carvedilol 6.25 Mg Tab) 6.25 mg PO BID MELLISA Stop: 07/15/22 20:59 Last Admin: 06/15/22 22:39 Dose: 6.25 mg Hydralazine HCl (Hydralazine Tab 50 Mg Tab) 50 mg PO TID MELLISA Stop: 07/15/22 20:59 Last Admin: 06/15/22 22:39 Dose: 50 mg Acetaminophen (Ofirmev) 1,000 mg in 100 mls @ 400 mls/hr IV Q8H MELLISA Stop: 06/19/22 02:59 Last Infusion: 06/16/22 03:33 Dose: Infused Sodium Chloride (Nss 1000ml) 1,000 mls @ 75 mls/hr IV .[id number] MELLISA Stop: 07/15/22 20:35 Last Infusion: 06/16/22 12:00 Dose: Infused Losartan Potassium (Losartan Potassium 50 Mg Tab) 50 mg PO DAILY MELLISA Stop: 07/16/22 08:59 Morphine Sulfate (Morphine Sulfate 4 Mg/Ml 1 Ml Carp\Vial) 4 mg IV Q4H PRN PRN Reason: severe pain Stop: 06/29/22 20:35 Last Admin: 06/16/22 08:58 Dose: 4 mg Nitroglycerin (Nitroglycerin Sl 0.4 Mg/Tab Tab) 0.4 mg SL UD PRN PRN Reason: Angina Stop: 07/15/22 20:35 Ondansetron HCl (Ondansetron Inj 2 Mg/Ml 2 Ml Vial) 4 mg IV Q6H PRN PRN Reason: Nausea Stop: 07/15/22 20:35 Pantoprazole Sodium (Pantoprazole 40 Mg Tab) 40 mg PO [facility] Stop: 07/16/22 08:59 Pravastatin Sodium (Pravastatin Sod 40 Mg Tab) 40 mg PO [facility] Stop: 07/16/22 08:59
[2022-06-16] MEDS: hydrALAZINE TAB 50 MG TAB PO SCH ×3 (14:21→21:47)
[2022-06-16] MEDS ORDERED: OPTIRAY 320 500ml IV ONE (15:05)
--- NOTE | 2022-06-16 15:25 | Electrocardiogram Report ---
Test Reason : Blood Pressure : / mmHG Vent. Rate : 058 BPM Atrial Rate : 058 BPM P-R Int : 194 ms QRS Dur : 098 ms QT Int : 426 ms P-R-T Axes : 096 004 072 degrees QTc Int : 418 ms Poor data quality, interpretation may be adversely affected Sinus bradycardia Minimal voltage criteria for LVH, may be normal variant Minor Nonspecific ST abnormality Lateral leads Abnormal ECG When compared with ECG of 15-JUN-2022 14:51, Minimal criteria for Septal infarct are no longer Present Nonspecific T wave abnormality no longer evident in Inferior leads Confirmed by Trenton Lares ([id number]) on 06/16/2022 3:25:29 PM Referred By: REFERRED SELF Confirmed By:Trenton Lares
--- NOTE | 2022-06-16 15:27 | Electrocardiogram Report ---
Test Reason : Blood Pressure : / mmHG Vent. Rate : 059 BPM Atrial Rate : 059 BPM P-R Int : 190 ms QRS Dur : 102 ms QT Int : 466 ms P-R-T Axes : 117 -17 020 degrees QTc Int : 461 ms Poor data quality, interpretation may be adversely affected Sinus bradycardia Incomplete right bundle branch block Moderate voltage criteria for LVH, may be normal variant Possible Old Septal infarct (cited on or before 15-JUN-2022) Diffuse Minor Nonspecific ST abnormality Abnormal ECG When compared with ECG of 23-MAR-2022 01:49, No significant change Confirmed by Trenton Lares ([id number]) on 06/16/2022 3:27:02 PM Referred By: REFERRED SELF Confirmed By:Trenton Lares
--- NOTE | 2022-06-16 15:28 | Electrocardiogram Report ---
Test Reason : Blood Pressure : / mmHG Vent. Rate : 059 BPM Atrial Rate : 059 BPM P-R Int : 194 ms QRS Dur : 100 ms QT Int : 422 ms P-R-T Axes : 103 000 056 degrees QTc Int : 417 ms Sinus bradycardia Minor Nonspecific ST abnormality Lateral leads Abnormal ECG When compared with ECG of 16-JUN-2022 09:55, No significant change was found Confirmed by Trenton Lares ([id number]) on 06/16/2022 3:28:14 PM Referred By: REFERRED SELF Confirmed By:Trenton Lares
--- NOTE | 2022-06-16 15:40 | CT Scan Report ---
CT angio chest dissec wo/w con CLINICAL HISTORY: severe chest pain radiating to back TECHNIQUE: Multidetector row helical CT of the chest was performed before and after injection of IV c ontrast. Coronal and sagittal reformations were obtained. Automated dose lowering techniques and/or a djustment according to patient size were utilized for this exam. CT DOSE: 1049.11 mGy.cm Comparison: Comparison is made to CT abdomen pelvis 08/15/2021 FINDINGS: Lungs and pleura: Trace bilateral pleural effusions are seen. There is associated atelectasis. Bronch ial wall thickening is noted. No suspicious pulmonary nodules are seen. Heart and pericardium: Mitral annular calcifications are seen. Aortic valvular calcifications are see n. Biatrial enlargement is seen. Vessels: No aortic dissection or intramural hematoma is seen. Pulmonary hypertension is noted. Mediastinum and margaret: Prominent mediastinal lymph nodes measure up to 11 mm. Chest wall and lower neck: Small thyroid nodules are noted which do not require follow-up by ACR vickie lamar. Abdomen: A moderate to large hiatal hernia is seen. Bones: Degenerative changes in the thoracic spine. IMPRESSION: 1. No acute abnormality and in particular no evidence of acute aortic injury. Pulmonary hypertension is seen. 2. Trace bilateral pleural effusions and associated atelectasis are seen. ACT 112: Negative or not required by law. Electronically signed by: Hieu Bucio M.D. 06/16/2022 3:38 PM
[2022-06-16] MEDS ORDERED: HYDROmorphone Bolus from PCA IV PRN (17:19)
[2022-06-16] MEDS ORDERED: HYDROmorphone PCA 30 MG/30 ML IV PRN (17:19)
[2022-06-16] MEDS ORDERED: NALOXONE HCL 0.4 MG/1 ML VIAL/CARP IV PRN (17:19)
[2022-06-16] MEDS: amLODIPine BESYLATE 5 MG TAB PO SCH ×2 (17:20→17:36)
[2022-06-16] MEDS: ASPIRIN 81 MG CHEW PO SCH ×2 (17:21→17:36)
[2022-06-16] MEDS: LOSARTAN POTASSIUM 50 MG TAB PO SCH ×2 (17:21→17:37)
[2022-06-16] MEDS: PRAVASTATIN SOD 40 MG TAB PO SCH (17:21)
[2022-06-16] MEDS: carvediloL 6.25 MG TAB PO SCH ×3 (17:21→21:46)
[2022-06-16] MEDS: PANTOprazole 40 MG TAB PO SCH ×2 (17:21→17:36)
[2022-06-16] MEDS ORDERED: HYDROmorphone INJ 1 MG/ML SYRINGE IV STA (17:24)
--- NOTE | 2022-06-16 17:56 | XRay Report ---
KUB HISTORY: Acute generalized abdominal pain severe uncontrolled abdominal pain COMPARISON: CT abdomen and pelvis 06/15/2022 FINDINGS: Cardiomegaly with mitral annular calcifications. Persistent small bowel obstruction with de creased small bowel distention compared to yesterday's exam. Small bowel loops measure up to 3.2 cm. Cholecystectomy. No renal calculi. No ureteral calculi. Contrast noted within the urinary bladder jae men. No pneumoperitoneum or pneumatosis. . Lumbar levoscoliosis with fusion hardware. No fracture. IMPRESSION: Persistent small bowel obstruction with mildly decreased small bowel distention compared to yesterday 's study. ACT 112: Negative or not required by law. The above report was generated using voice recognition software. It may contain grammatical, syntax o r spelling errors. Electronically signed by: Dave Lagunas M.D. 06/16/2022 5:54 PM
[2022-06-17] MEDS: ACETAMINOPHEN 1,000 MG/100 ML VIAL IV SCH ×3 (02:29→18:28)
[2022-06-17] MEDS: MoRPHine SULFATE 4 MG/ML 1 ML CARP\\VIAL IV PRN ×3 (03:57→23:19)
[2022-06-17] MEDS ORDERED: HYDROmorphone INJ 0.5 MG/0.5 ML SYR IV STA (03:59)
[2022-06-17] MEDS: ONDANSETRON INJ 2 MG/ML 2 ML VIAL IV PRN ×2 (04:10→23:19)
[2022-06-17] MEDS: SODIUM CHLORIDE 0.9% 1000ML 1,000 ML IV SCH ×4 (05:29→20:13)
[2022-06-17] MEDS ORDERED: CHLORASEPTIC 1.4% SOLN 180 ML BTL MT PRN (08:02)
--- NOTE | 2022-06-17 08:09 | Hospitalist Progress Note ---
Date of Service June 17, 2022 Assessment & Plan (1) Small bowel obstruction: Plan: Acute SBO possibly related to scar tissue given multiple abdominal surgeries in the past vs ileus from chronic narcotic use. Keep NPO. No flatus and Day 3 of abdominal pain, now vomiting bilious green emesis. Maintenance IVF, monitor closely for volume overload given known aortic stenosis. Currently no crackles or evidence of overload. Cont supportive care measures including adding dilaudid TURF FARMER overnight without much relief although she is not pushing it often. CTA chest ruled out aortic dissection and lactate was normal last night making mesenteric ischemia less likely to be present. KUB also with no free air. I notified gen surg about the NG tube placement for this am. Appreciate general surgery evaluation and recs. (2) Coronary artery disease: Plan: Worsened cardiac disease seen during cath on 05/31/22. Plan for high risk PCI at [facility] on 07/06. Ongoing anginal symptoms and dyspnea on exertion. Consult cardiology for help with monitoring and caring for these symptoms. She doesn't seem to be having any active ACS at this time. Cont medical management of ACS. (3) Pericardial effusion: Plan: Known small pericardial effusion historically. Repeat echo performed today with results pending. (4) Aortic stenosis: Plan: moderate. There was consideration for TAVR, however, she is considered higher risk with poor chance for good recovery. Deferred at this time. (5) Anemia: Plan: chronic and around her baseline. Likely related to chronic disease. No overt bleeding. Cont to monitor. (6) CKD (chronic kidney disease) stage 3, GFR 30-59 ml/min: Plan: Chronic, around baseline. Cont to monitor. (7) DVT prophylaxis: Plan: heparin Full Code Dispo-continue to monitor on telemetry. Pain is still very uncontrolled. Adding NG tube and will reassess her in a few hours. Marilyn Abrams DO [facility]ist Admission and Anticipated Discharge Date Admission Date: June 15, 2022 Subjective 77 yo F presents with severe abdominal pain and SBO still no relief today with bilious vomiting starting this morning abdominal pain is the same burping but no flatus present Dilaudid TURF FARMER was placed last night but she only pushed it twice on interrogation states the PRN pushes of dilaudid work better for her Review of Systems Review of Systems: All systems reviewed negative except as indicated above. Physical Exam Physical Exam: CONSTITUTIONAL: frail, elderly vitals as above, moderate distress from abdominal pain EYES: normal conjunctivae, no scleral icterus ENT: external ear and nose normal, MMM NECK: trachea midline, RESPIRATORY: clear to auscultation bilaterally, no crackles, rales or wheezes, normal respiratory effort CARDIOVASCULAR: regular rate and rhythm, 3/6 murmur head throughout precordium and murmur heard in iliac arteries, also. No gallops or rubs, no JVD, no peripheral edema, CHEST: inspection of chest was normal GASTROINTESTINAL: soft, no bowel sounds were audible on auscultation, generalized tenderness and guarding in all quadrants, nondistended MUSCULOSKELETAL: strength 5/5 throughout, head is normocephalic and atraumatic SKIN: warm and dry NEUROLOGIC: CN 2-12 grossly intact, no sensory deficit, normal cognition, normal speech, no tremor PSYCHIATRIC: alert cooperative and oriented to person, place and time. Euthymic mood, makes good eye contact, language grossly intact, recent and remote memory grossly intact. Results & Data Results & Data ([facility] [place]) Vital Signs (Past 12 Hours) Vital Signs Temp Pulse Pulse Resp BP Pulse Ox O2 Del Method 06/17/22 04:00 36.7 C 59 L 18 129/60 93 Nasal Cannula 06/16/22 22:15 60 06/16/22 23:46 36.8 C 57 L 18 128/73 92 Room Air 06/16/22 20:52 37.1 C 61 18 117/61 93 Room Air O2 Flow Rate 06/17/22 04:00 1 06/16/22 22:15 06/16/22 23:46 2 06/16/22 20:52 Medications Administered Current Inpatient Medications Amlodipine Besylate (Amlodipine Besylate 5 Mg Tab) 10 mg PO QAM MELLISA Stop: 07/16/22 08:59 Last Admin: 06/16/22 17:36 Dose: 10 mg Aspirin (Aspirin 81 Mg Chew) 81 mg PO DAILY MELLISA Stop: 07/16/22 08:59 Last Admin: 06/16/22 17:36 Dose: 81 mg Carvedilol (Carvedilol 6.25 Mg Tab) 6.25 mg PO BID MELLISA Stop: 07/15/22 20:59 Last Admin: 06/16/22 21:46 Dose: 6.25 mg Hydralazine HCl (Hydralazine Tab 50 Mg Tab) 50 mg PO TID [facility] Stop: 07/15/22 20:59 Last Admin: 06/16/22 21:47 Dose: 50 mg Hydromorphone HCl (Hydromorphone Projection Technician 30 Mg/30 Ml) 30 mg IV PRN PRN; Protocol PRN Reason: TURF FARMER Pain Titration Stop: 06/30/22 17:18 Last Admin: 06/16/22 19:17 Dose: 30 mg Hydromorphone HCl (Hydromorphone Bolus From Projection Technician) 0.5 mg IV Q2H PRN PRN Reason: TURF FARMER pain relief for activity Stop: 06/30/22 17:18 Acetaminophen (Ofirmev) 1,000 mg in 100 mls @ 400 mls/hr IV Q8H [facility] Stop: 06/19/22 02:59 Last Infusion: 06/17/22 02:47 Dose: Infused Sodium Chloride (Nss 1000ml) 1,000 mls @ 75 mls/hr IV .[id number] [facility] Stop: 07/15/22 20:35 Last Admin: 06/17/22 05:29 Dose: 75 mls/hr Sodium Chloride (Nss 1000ml) 1,000 mls @ 15 mls/hr IV .Q24H [facility] Stop: 06/30/22 17:19 Last Admin: 06/16/22 20:28 Dose: Not Given Losartan Potassium (Losartan Potassium 50 Mg Tab) 50 mg PO DAILY [facility] Stop: 07/16/22 08:59 Last Admin: 06/16/22 17:37 Dose: 50 mg Miscellaneous (Lock-Out Projection Technician Titration ) 1 each N/A ONCE PRN PRN Reason: TURF FARMER Lock-Out Titration x 1 Stop: 06/30/22 17:18 Miscellaneous (Incremental Projection Technician Titration ) 1 each N/A ONCE PRN PRN Reason: TURF FARMER Dose Titration x 1 Stop: 07/16/22 17:18 Morphine Sulfate (Morphine Sulfate 4 Mg/Ml 1 Ml Carp\Vial) 4 mg IV Q4H PRN PRN Reason: severe pain Stop: 06/29/22 20:35 Last Admin: 06/17/22 03:57 Dose: 4 mg Naloxone HCl (Naloxone Hcl 0.4 Mg/1 Ml Vial/Carp) 0.1 mg IV Q5M PRN; Protocol PRN Reason: Oversedation/Resp Depression Stop: 06/30/22 17:18 Nitroglycerin (Nitroglycerin Sl 0.4 Mg/Tab Tab) 0.4 mg SL UD PRN PRN Reason: Angina Stop: 07/15/22 20:35 Ondansetron HCl (Ondansetron Inj 2 Mg/Ml 2 Ml Vial) 4 mg IV Q6H PRN PRN Reason: Nausea Stop: 07/15/22 20:35 Last Admin: 06/17/22 04:10 Dose: 4 mg Pantoprazole Sodium (Pantoprazole 40 Mg Tab) 40 mg PO [facility] Stop: 07/16/22 08:59 Last Admin: 06/16/22 17:36 Dose: 40 mg Phenol (Chloraseptic 1.4% Soln 180 Ml Btl) 2 sprays MT Q4H PRN PRN Reason: sore throat Stop: 07/17/22 08:01 Pravastatin Sodium (Pravastatin Sod 40 Mg Tab) 40 mg PO [facility] Stop: 07/16/22 08:59 Last Admin: 06/16/22 17:21 Dose: Not Given
[2022-06-17 08:20] LABS: Hematocrit (blood only) 28.2 % (34.1-44.9); Hemoglobin 8.9 g/dl (12.0-16.0); Mean Corpuscular Hemoglobin 28.9 pg (25.0-34.0); Mean Corpuscular Hgb Conc 31.6 g/dL (32.0-36.0); Mean Corpuscular Volume 91.6 fL (80.0-100.0); Mean Platelet Volume 9.9 fL (9.4-12.3); Platelet Count 229 K/uL (130-400); RDW Coefficient of Variation 15.7 % (11.5-14.5); RDW Standard Deviation 52.2 fL (36.4-46.3); Red Blood Count 3.08 M/uL (3.93-5.22); White Blood Count 9.63 K/ul (4.8-10.8)
[2022-06-17 08:43] LABS: BUN Creatinine Ratio 28.4 (10-20); Calcium 8.9 mg/dl (8.5-10.1); Creatinine Clr Calc Pharmacy 18.5 ml/min; Est GFR (African American) 22.4 ml/min; Est GFR (Non-African American) 19.4 ml/min; Magnesium 2.1 mg/dl (1.7-2.4); Phosphorus 6.8 mg/dl (2.5-4.9); Potassium 5.3 mmol/L (3.5-5.1)
--- NOTE | 2022-06-17 09:43 | XRay Report ---
KUB CLINICAL HISTORY: Follow-up small bowel obstruction. FINDINGS: 2 AP, portable, supine abdominal radiographs are compared to study dated 06/16/2022 correla tion is made to abdominal CT dated 06/15/2022. An enteric tube projects over the stomach. An electron ic device obscures the upper pelvis on the initial image. There is persistent gaseous distention of t he small bowel loops which measure up to 3.4 cm in diameter. This indicates persistent obstruction. N o evidence of intraperitoneal free air is seen on these supine images. Cholecystectomy clips are seen in the right upper quadrant. There is advanced atherosclerotic calcification of the abdominal aorta. Excreted IV contrast fills the bladder. The skeletal structures are osteopenic and appear intact. Th ere is lumbosacral spondylosis and scoliosis with previous multilevel lumbar spinal fusion. Cardiomeg janel with calcification of the mitral annulus is seen in the lower chest. IMPRESSION: Persistent small bowel obstruction. Electronically signed by: Bernabe Pressley M.D. 06/17/2022 9:41 AM
[2022-06-17] MEDS: amLODIPine BESYLATE 5 MG TAB PO SCH (09:47)
[2022-06-17] MEDS: carvediloL 6.25 MG TAB PO SCH ×2 (09:48→20:15)
[2022-06-17] MEDS: hydrALAZINE TAB 50 MG TAB PO SCH ×3 (09:48→20:15)
[2022-06-17] MEDS: ASPIRIN 81 MG CHEW PO SCH (09:48)
[2022-06-17] MEDS: LOSARTAN POTASSIUM 50 MG TAB PO SCH (09:48)
[2022-06-17] MEDS: PANTOprazole 40 MG TAB PO SCH (09:49)
[2022-06-17] MEDS: PRAVASTATIN SOD 40 MG TAB PO SCH (09:49)
--- NOTE | 2022-06-17 10:28 | Electrocardiogram Report ---
Test Reason : Blood Pressure : / mmHG Vent. Rate : 058 BPM Atrial Rate : 058 BPM P-R Int : 184 ms QRS Dur : 106 ms QT Int : 440 ms P-R-T Axes : 118 -06 001 degrees QTc Int : 431 ms Sinus bradycardia Minimal voltage criteria for LVH, may be normal variant Abnormal ECG When compared with ECG of 16-JUN-2022 09:56, No significant change was found Confirmed by Philipp Shannon ([id number]) on 06/17/2022 10:28:04 AM Referred By: REFERRED SELF Confirmed By:Wander Shannon
[2022-06-17] MEDS ORDERED: carvediloL 6.25 MG TAB PO ONE (10:51)
--- NOTE | 2022-06-17 10:51 | Cardiology Progress Note ---
Date of Service June 17, 2022 Assessment & Plan (1) SBO (small bowel obstruction): (2) Aortic stenosis: (3) CHF (congestive heart failure): (4) ASCVD (arteriosclerotic cardiovascular disease): Plan Small bowel obstruction. Patient has been evaluated by the hospitalist team and general surgery with recommendation for conservative management with bowel rest and cautious IV fluid hydration. Agree with recommendation for transfer to tertiary care center ([facility]) if patient fails conservative management. ASCVD. Patient with stable angina symptoms. Continue medical management as prescribed, as long as the patient is able to take oral medications. Patient is scheduled for high risk percutaneous coronary intervention of the left main coronary artery stenosis at [facility] on July 06, 2022. She did not receive a.m. dose of carvedilol. Recommend administering 6.25 mg x 1 now. Currently n.p.o. except for ice chips and medications. Echocardiogram demonstrating stable, borderline severe aortic valve stenosis, preserved LV systolic function and a small circumferential pericardial effusion. No evidence of tamponade. Admission and Anticipated Discharge Date Admission Date: June 15, 2022 Subjective Patient seen examined the bedside. Notes continued abdominal discomfort. NG tube in place currently on suction. Attempting to consume ice chips. No chest pain or unusual shortness of breath. Review of Systems Review of Systems: All systems reviewed & are unremarkable except as noted in Subjective Physical Exam Constitutional: + ill appearing; no acute distress Respiratory: normal respiratory effort; no respiratory distress and no labored breathing Auscultation: no crackles, no rales, no rhonchi and no wheezes Cardiovascular: Rate/Rhythm: regular rate and regular rhythm Heart Sounds: normal S1, normal S2 and + murmur (2/6 systolic ejection murmur heard at the right second intercostal) Gastrointestinal (Abdomen): Inspection/Auscultation: + abdomen distended; + abnormal bowel sounds Percussion/Palpation: + abdomen tender; no guarding and abdomen not rigid Neurologic: CN's II-XI intact bilaterally and moves all extremities Motor/Sensory: no tremor Results & Data ([facility]) Vital Signs (Past 12 Hours) Vital Signs Temp Pulse Resp BP Pulse Ox O2 Del Method O2 Flow Rate 06/17/22 08:12 36.8 C 54 L 18 131/51 L 93 Nasal Cannula 2 06/17/22 04:00 36.7 C 59 L 18 129/60 93 Nasal Cannula 1 06/16/22 23:46 36.8 C 57 L 18 128/73 92 Room Air 2
--- NOTE | 2022-06-17 12:41 | Surgery Progress Note ---
Date of Service June 17, 2022 Assessment & Plan (1) SBO (small bowel obstruction): Plan: ngt in place feels a little better stable if doesn't respond in next few days will need transfer fro exploration Admission and Anticipated Discharge Date Admission Date: June 15, 2022 Subjective pain better no flatus ngt bilious XR c/w SBO Review of Systems Constitutional: no fever and no chills Respiratory: no cough and no dyspnea Cardiovascular: no chest pain Gastrointestinal: + abdominal pain; no nausea and no vomiting Genitourinary: no dysuria Musculoskeletal: no back pain, no neck pain and no joint pain Integumentary: no lesions Neurologic: no localized weakness and no generalized weakness Psychiatric: no behavioral changes Endocrine: no fatigue Physical Exam Constitutional: WD/WN, vitals as above + thin Eyes: PERRL, conjunctivae normal, anicteric sclerae ENMT: external ear and nose normal, oropharynx normal Neck: trachea midline Respiratory: normal respiratory effort, lungs clear to auscultation Cardiovascular: RRR, no murmur, no edema Gastrointestinal (Abdomen): Inspection/Auscultation: abdomen normal to inspection, + abdomen distended and normal bowel sounds Percussion/Palpation: + abdomen tender and abdomen soft; no guarding and abdomen not rigid Musculoskeletal: Head/Neck/Chest: normocephalic and head atraumatic Skin: no rashes, warm and dry Results & Data ([facility]) Vital Signs (Past 12 Hours) Vital Signs Temp Pulse Resp BP Pulse Ox O2 Del Method O2 Flow Rate 06/17/22 12:09 36.5 C 61 18 134/62 95 Nasal Cannula 2 06/17/22 08:00 Nasal Cannula 1 06/17/22 08:12 36.8 C 54 L 18 131/51 L 93 Nasal Cannula 2 06/17/22 04:00 36.7 C 59 L 18 129/60 93 Nasal Cannula 1 Diagnostic Findings KUB CLINICAL HISTORY: Follow-up small bowel obstruction. FINDINGS: 2 AP, portable, supine abdominal radiographs are compared to study dated 06/16/2022 correlation is made to abdominal CT dated 06/15/2022. An enteric tube projects over the stomach. An electronic device obscures the upper pelvis on the initial image. There is persistent gaseous distention of the small bowel loops which measure up to 3.4 cm in diameter. This indicates persistent obstruction. No evidence of intraperitoneal free air is seen on these supine images. Cholecystectomy clips are seen in the right upper quadrant. There is advanced atherosclerotic calcification of the abdominal aorta. Excreted IV contrast fills the bladder. The skeletal structures are osteopenic and appear intact. There is lumbosacral spondylosis and scoliosis with previous multilevel lumbar spinal fusion. Cardiomegaly with calcification of the mitral annulus is seen in the lower chest. IMPRESSION: Persistent small bowel obstruction.
[2022-06-18] MEDS: ACETAMINOPHEN 1,000 MG/100 ML VIAL IV SCH ×3 (02:23→21:28)
[2022-06-18 06:01] LABS: Hemoglobin 8.2 g/dl (12.0-16.0); Mean Corpuscular Hemoglobin 28.9 pg (25.0-34.0); Mean Corpuscular Hgb Conc 31.5 g/dL (32.0-36.0); Mean Corpuscular Volume 91.5 fL (80.0-100.0); Mean Platelet Volume 10.6 fL (9.4-12.3); Platelet Count 215 K/uL (130-400); RDW Coefficient of Variation 15.8 % (11.5-14.5); RDW Standard Deviation 53.2 fL (36.4-46.3); Red Blood Count 2.84 M/uL (3.93-5.22)
[2022-06-18 06:24] LABS: BUN Creatinine Ratio 24.3 (10-20); Calcium 8.2 mg/dl (8.5-10.1); Creatinine Clr Calc Pharmacy 13.1 ml/min; Est GFR (African American) 14.7 ml/min; Est GFR (Non-African American) 12.7 ml/min; Potassium 5.4 mmol/L (3.5-5.1)
[2022-06-18 06:41] LABS: Creatinine Urine Random 109.1 mg/dl
[2022-06-18] MEDS: hydrALAZINE TAB 50 MG TAB PO SCH ×3 (07:54→21:41)
[2022-06-18] MEDS: PRAVASTATIN SOD 40 MG TAB PO SCH (07:54)
[2022-06-18] MEDS: PANTOprazole 40 MG TAB PO SCH (07:55)
[2022-06-18] MEDS: ASPIRIN 81 MG CHEW PO SCH (07:57)
[2022-06-18] MEDS: carvediloL 6.25 MG TAB PO SCH (07:57)
[2022-06-18] MEDS: amLODIPine BESYLATE 5 MG TAB PO SCH (07:58)
[2022-06-18] MEDS ORDERED: MoRPHine SULFATE 2 MG/ML CARP IV STA (09:15)
--- NOTE | 2022-06-18 10:54 | Ultrasound Report ---
BILATERAL LOWER EXTREMITY VENOUS DOPPLER HISTORY: Acute pain and swelling of the lower legs acute bilat leg pain COMPARISON STUDY: Doppler study 09/30/2020 FINDINGS: There is normal compressibility, flow, and augmentation within the bilateral lower extremit y deep venous systems. Mild subcutaneous edema. IMPRESSION: No DVT within the right or left lower extremity. ACT 112: Negative or not required by law. Electronically signed by: Dave Lagunas M.D. 06/18/2022 10:34 AM
[2022-06-18] MEDS ORDERED: STAT IV STA (11:22)
--- NOTE | 2022-06-18 11:22 | Nephrology Consultation ---
Date of Consultation June 18, 2022 Assessment & Plan (1) SHEA (acute kidney injury): Patient with acute kidney injury likely due to contrast-induced nephropathy. She has baseline CKD with creatinine of 1.3. Admission creatinine was at baseline but increased to 2.3 the next day and up to 3.3 at around 06/18/2022. The timing of rising creatinine likely correlates with the contrast administration. Patient has multiple medical problems including severe aortic stenosis and coronary artery disease. There is a high likelihood that she will need dialysis. When I discussed possibility of needing dialysis during this admission, patient stated that she did not want to do dialysis and just wants NG tube removed. -We will continue IV fluids and monitor renal function with daily BMP. -We will stop normal saline and change to bicarb drip at 75 mill per hour. -We will avoid further contrast. (2) Small bowel obstruction: Patient is a NG tube for bowel rest per surgery. She is continuing IV fluids. Will monitor and replace electrolytes as needed. History of Present Illness Reason for Consultation: Acute kidney injury Requesting Physician: Marilyn Abrams DO Attending Physician: Marilyn Abrams DO History of Present Illness This is 77-year-old female with history of hypertension, hyperlipidemia, severe aortic stenosis and coronary disease who was admitted with abdominal pain found to have small bowel obstruction. She underwent a cardiac cath on 05/31/2022 that showed left main CAD of 60% stenosis. She was being planned for high risk PCI on 07/06/2022 at [facility] [place]. On admission she had a creatinine of 1.3 which is her baseline. Patient received IV contrast for CTA to evaluate abdominal pain. Her creatinine increased to 2.3 the next day and is up to 3.3 today. She is not making much urine. She has an NG tube for bowel rest and get decompression. Patient is very frustrated with the NG tube and wants it removed as soon as possible. She denies shortness of breath. Her legs are painful and slightly swollen. Urinalysis showed no RBCs or WBCs but 2+ protein. She denies abdominal pain today. Son Francisco was at the bedside. Allergies Allergy/AdvReac Type Severity Reaction Status Date / Time gabapentin AdvReac Intermediate cough Verified 06/15/22 16:08 oxycodone AdvReac Intermediate "makes me Verified 06/15/22 16:08 go crazy" ramipril AdvReac Intermediate cough Verified 06/15/22 16:08 Home Medications Medication Instructions Recorded Confirmed Type amlodipine 10 mg tablet 10 mg PO QAM 07/01/19 06/15/22 History cranberry concentrate-ascorbic 4 cap PO DAILY 07/01/19 06/15/22 History acid 140 mg-100 mg capsule (Cranberry Plus Vitamin C) cyanocobalamin (vitamin B-12) 2,500 mcg PO QPM 07/01/19 06/15/22 History 2,500 mcg tablet docusate sodium 100 mg tablet 100 - 200 mg PO QPM 07/01/19 06/15/22 History (Stool Softener) hydrocodone 10 mg-acetaminophen 1 tab PO BID 07/01/19 06/15/22 History 325 mg tablet losartan 50 mg tablet 50 mg PO DAILY 07/01/19 06/15/22 History nitroglycerin 0.4 mg sublingual 0.4 mg sublingual UD PRN Angina 07/01/1906/15 History tablet omeprazole 20 mg capsule,delayed 20 mg PO QAM 07/01/19 06/15/22 History release pravastatin 40 mg tablet 40 mg PO QAM 07/01/19 06/15/22 History aspirin 81 mg chewable tablet 81 mg PO DAILY 09/01/20 06/15/22 History carvedilol 6.25 mg tablet 6.25 mg PO BID #60 tabs 10/04/20 06/15/22 Rx torsemide 10 mg tablet 10 mg PO DAILY 03/23/22 06/15/22 History acetaminophen 650 mg 650 mg PO Q8H PRN Pain 06/15/22 06/15/22 History tablet,extended release ascorbic acid (vitamin C) 500 mg 500 mg PO DAILY 06/15/22 06/15/22 History tablet (Vitamin C) cholecalciferol (vitamin D3) 25 25 mcg PO DAILY 06/15/22 06/15/22 History mcg (1,000 unit) capsule (Vitamin D3) hydralazine 50 mg tablet 50 mg PO TID 06/15/22 06/15/22 History pyridoxine (vitamin B6) 50 mg 50 mg PO DAILY 06/15/22 06/15/22 History tablet (Vitamin B-6) turmeric root extract 500 mg tablet 500 mg PO DAILY 06/15/22 06/15/22 History vitamin E 670 mg (1,000 unit) 670 mg PO DAILY 06/15/22 06/15/22 History capsule Patient History Medical History Acute exacerbation of congestive heart failure Aortic stenosis "moderately severe by echo September 2013" Chawla's esophagus Cardiac murmur Chronic back pain Chronic sialoadenitis CKD (chronic kidney disease) stage 3, GFR 30-59 ml/min Coronary artery disease "nonocclusive disease by cath [facility] [place] September 2013" COVID Esophageal motility disorder "noted on barium swallow 10/2014" Generalized weakness GERD (gastroesophageal reflux disease) History of esophageal dilatation Hyperlipidemia Hypertension Hypertensive crisis Leaky heart valve per pt aorta--follows with Dr. Gonzáles Myalgia Osteoarthritis Poor historian Surgical History History of appendectomy History of bilateral tubal ligation History of cardiac cath x3--last 12/2018 no stents History of carpal tunnel release of both wrists History of cholecystectomy History of colonoscopy History of esophagogastroduodenoscopy (EGD) History of hysterectomy History of lumbar spinal fusion History of lumpectomy cant remember which breast---benign fatty tissue History of sinus surgery History of tonsillectomy History of tooth extraction History of total left knee replacement (TKR) History of umbilical hernia repair Family History Other No family history of adverse response to anesthesia No family history of bleeding disorder Social History Smoking Status: Never smoker Second Hand Exposure: No; Do You Dip or Chew Tobacco: No; Hx Alcohol Use: No Hx Substance Use: No Preferred Language: Kuwaiti Communication Ability: Effective Director [facility] Required: No Beliefs That Will Affect Care: Mandaeism Mandaeism Beliefs: Would like to see security trainer marital status: / Current Living Situation: Alone Current Living Situation Comment: From home. Sons help daily. Other Information That Helps Us Care for You: No Feels Safe at Home: Yes Safety Concerns: Feels Safe At This Time Assistive Devices: Glasses and Walker Review of Systems Review of Systems: All other systems were reviewed and negative except as noted in HPI Physical Exam Physical Exam: General exam: Appears comfortable, no acute distress. NG tube to suction HEENT: Pupils are equal and reactive to light Neck: No JVD, neck is supple trachea is midline Respiratory system: Clear breath sounds bilaterally. Gastrointestinal: Abdomen is soft, non distended, slightly tender, bowel sounds are present CVS: Regular rate and rhythm. No murmurs, rubs or gallops Musculoskeletal: No joint or muscle tenderness Extremities: Non tender, 1+ edema, peripheral pulses are present Neuro: Oriented, no tremors, no focal neurological deficits Skin: No rashes Results & Data ([facility]) Vital Signs (Past 12 Hours) Vital Signs Temp Pulse Pulse Resp BP Pulse Ox O2 Del Method 06/18/22 07:46 37.0 C 57 L 18 110/51 L 97 Nasal Cannula 06/18/22 07:32 62 06/18/22 02:46 36.8 C 63 18 135/64 95 Nasal Cannula O2 Flow Rate 06/18/22 07:46 1 06/18/22 07:32 06/18/22 02:46 2 Laboratory Results 06/18/22 05:37 06/18/22 05:37 WBC 10.00 RBC 2.84 L MCV 91.5 MCH 28.9 MCHC 31.5 L RDW Std Deviation 53.2 H RDW Coeff of Breanne 15.8 H Plt Count 215 MPV 10.6
--- NOTE | 2022-06-18 11:24 | Surgery Progress Note ---
Date of Service June 18, 2022 Assessment & Plan (1) SBO (small bowel obstruction): Plan: not significant progress if not passing flatus would transfer for possible ex lap KUB in AM Admission and Anticipated Discharge Date Admission Date: June 15, 2022 Subjective complains of throat hurting hungry no flatus 1000 cc ngt drainage, eating alot of ice chips Review of Systems Constitutional: no fever and no chills Respiratory: no cough, no chest congestion and no dyspnea Cardiovascular: no chest pain Gastrointestinal: + change in bowel habits; no abdominal pain, no nausea and no vomiting Genitourinary: no dysuria Musculoskeletal: no back pain Integumentary: no lesions Neurologic: no localized weakness and no generalized weakness Psychiatric: no behavioral changes Physical Exam Constitutional: + thin Eyes: PERRL, conjunctivae normal, anicteric sclerae ENMT: external ear and nose normal, oropharynx normal Neck: trachea midline Respiratory: no respiratory distress Cardiovascular: Rate/Rhythm: regular rate Gastrointestinal (Abdomen): Inspection/Auscultation: abdomen normal to inspection and normal bowel sounds; abdomen not distended Percussion/Palpation: abdomen soft; abdomen nontender, no guarding and abdomen not rigid Musculoskeletal: Head/Neck/Chest: + abnormal head shape and + evidence of head trauma Skin: no rashes, warm and dry Results & Data ([facility]) Vital Signs (Past 12 Hours) Vital Signs Temp Pulse Pulse Resp BP Pulse Ox O2 Del Method 06/18/22 07:46 37.0 C 57 L 18 110/51 L 97 Nasal Cannula 06/18/22 07:32 62 06/18/22 02:46 36.8 C 63 18 135/64 95 Nasal Cannula O2 Flow Rate 06/18/22 07:46 1 06/18/22 07:32 06/18/22 02:46 2
--- NOTE | 2022-06-18 11:35 | Cardiology Progress Note ---
Date of Service June 18, 2022 Assessment & Plan (1) SBO (small bowel obstruction): (2) Aortic stenosis: (3) CHF (congestive heart failure): (4) ASCVD (arteriosclerotic cardiovascular disease): Plan Small bowel obstruction. Patient has been evaluated by the hospitalist team and general surgery with recommendation for conservative management with bowel rest and cautious IV fluid hydration. Agree with recommendation for transfer to tertiary care center ([facility] [place]) if patient fails conservative management. ASCVD. Patient with stable angina symptoms. Continue medical management as prescribed, as long as the patient is able to take oral medications. Patient is scheduled for high risk percutaneous coronary intervention of the left main coronary artery stenosis at [facility] on July 06, 2022.Carvedilol has been held since June 16. I will adjust hold parameters and reduced dose of carvedilol to 3.125 mg twice daily due to borderline hypotension and bradycardia. Losartan will remain on hold. Echocardiogram demonstrating stable, borderline severe aortic valve stenosis, preserved LV systolic function and a small circumferential pericardial effusion. No evidence of tamponade. Admission and Anticipated Discharge Date Admission Date: June 15, 2022 Subjective Patient seen examined the bedside. No changes overnight. Continues to complain of abdominal discomfort and bilateral lower extremity discomfort. She was sent for a venous duplex which is negative for DVT. States "I want to get this tube out today". Tolerating sips of water and ice chips. No chest pain or heaviness. Review of Systems Review of Systems: All systems reviewed & are unremarkable except as noted in Subjective Physical Exam Constitutional: + ill appearing; no acute distress Respiratory: normal respiratory effort; no respiratory distress and no labored breathing Auscultation: no crackles, no rales, no rhonchi and no wheezes Cardiovascular: Rate/Rhythm: regular rate and regular rhythm Heart Sounds: normal S1, normal S2 and + murmur (2/6 systolic ejection murmur heard at the right second intercostal) Gastrointestinal (Abdomen): Inspection/Auscultation: + abdomen abnormal to inspection, abdomen not distended and + abnormal bowel sounds Percussion/Palpation: + abdomen tender; no guarding and abdomen not rigid Neurologic: CN's II-XI intact bilaterally and moves all extremities Motor/Sensory: no tremor Results & Data ([facility]) Vital Signs (Past 12 Hours) Vital Signs Temp Pulse Pulse Resp BP Pulse Ox O2 Del Method 06/18/22 11:27 37.0 C 58 L 18 111/58 L 94 Room Air 06/18/22 07:46 37.0 C 57 L 18 110/51 L 97 Nasal Cannula 06/18/22 07:32 62 06/18/22 02:46 36.8 C 63 18 135/64 95 Nasal Cannula O2 Flow Rate 06/18/22 11:27 06/18/22 07:46 1 06/18/22 07:32 06/18/22 02:46 2
[2022-06-18] MEDS: SODIUM BICARBONATE 8.4% 150 MEQ in DEXTROSE 5% 1,000 ML IV SCH (13:45)
[2022-06-18] MEDS: carvediloL 3.125 MG TAB PO SCH ×2 (13:45→21:43)
--- NOTE | 2022-06-18 17:55 | Hospitalist Progress Note ---
Date of Service June 18, 2022 Assessment & Plan (1) Small bowel obstruction: Plan: Acute SBO possibly related to scar tissue given multiple abdominal surgeries in the past vs ileus from chronic narcotic use. Keep NPO. Improved after NG tube placement yesterday. IVF changed to bicarb. PRN pain meds including scheduled Tylenol. CTA chest ruled out aortic dissection and lactate was normal last night making mesenteric ischemia less likely to be present. KUB also with no free air. Gen surg is following. (2) SHEA (acute kidney injury): Plan: worsening of renal function wtih poor PO intake and contrast administration. Nephrology consulted and following. Changed fluid to bicarb drip with slight acidosis seen on today's labs. Cont to monitor daily BMP. (3) Coronary artery disease: Plan: Worsened cardiac disease seen during cath on 05/31/22. Plan [place] [facility] [place] Ongoing anginal symptoms and dyspnea on exertion. Consult cardiology for help with monitoring and caring for these symptoms. She doesn't seem to be having any active ACS at this time. Cont medical management of ACS. (4) Bilateral leg pain: Plan: Possible chronic neuropathy but cannot get clarity on this from the patient. Cont tylenol q8h which she says has helped her in the past. (5) Pericardial effusion: Plan: Known small pericardial effusion historically. Repeat echo performed today with results pending. (6) Aortic stenosis: Plan: moderate. There was consideration for TAVR, however, she is considered higher r isk with poor chance for good recovery. Deferred at this time. (7) Anemia: Plan: chronic and around her baseline. Likely related to chronic disease. No overt bleeding. Cont to monitor. (8) DVT prophylaxis: Plan: heparin Full Code Dispo-continue to monitor on telemetry. Pain is still very uncontrolled. Adding NG tube and will reassess her in a few hours. Marilyn Abrams DO [facility] Hospitalist Admission and Anticipated Discharge Date Admission Date: June 15, 2022 Subjective 77 yo F presents with severe abdominal pain and SBO no abdominal pain reported no nausea reports severe throat pain despite throat spray and ice chips reports severe leg pain US bilat of legs without evidence of DVT Review of Systems Review of Systems: All systems reviewed negative except as indicated above. Physical Exam Physical Exam: CONSTITUTIONAL: frail, elderly vitals as above, ill-appearing, NAD EYES: normal conjunctivae, no scleral icterus ENT: external ear and nose normal, MMM NECK: trachea midline, RESPIRATORY: clear to auscultation bilaterally, no crackles, rales or wheezes, normal respiratory effort CARDIOVASCULAR: regular rate and rhythm, 3/6 murmur head throughout precordium and murmur heard in iliac arteries, also. No gallops or rubs, no JVD, no peripheral edema, CHEST: inspection of chest was normal GASTROINTESTINAL: soft, no bowel sounds were audible on auscultation, generalized tenderness and guarding in all quadrants, nondistended MUSCULOSKELETAL: strength 5/5 throughout, head is normocephalic and atraumatic SKIN: warm and dry, lower legs are TTP bilaterally NEUROLOGIC: CN 2-12 grossly intact, no sensory deficit, normal cognition, normal speech, no tremor PSYCHIATRIC: alert cooperative and oriented to person, place and time. Euthymic mood, makes good eye contact, language grossly intact, recent and remote memory grossly intact. Results & Data Results & Data ([facility]) Vital Signs (Past 12 Hours) Vital Signs Temp Pulse Pulse Resp BP Pulse Ox O2 Del Method 06/18/22 16:28 37.1 C 61 16 141/49 H 90 Room Air 06/18/22 11: 37.0 C 58 L 18 111/58 L 94 Room Air 06/18/22 07:46 37.0 C 57 L 18 110/51 L 97 Nasal Cannula 06/18/22 07:32 62 O2 Flow Rate 06/18/22 16:28 06/18/22 11:27 06/18/22 07:46 1 06/18/22 07:32 Laboratory Results Short CBC 06/18/22 Range/Units 05:37 WBC 10.00 (4.8-10.8) K/ul Hgb 8.2 L (12.0-16.0) g/dl Hct 26.0 L (34.1-44.9) % Plt Count 215 (130-400) K/uL BMP 06/18/22 05:37 Sodium 136 Potassium 5.4 H Chloride 105 Carbon Dioxide 19 L BUN 80 H Creatinine 3.29 H D Glucose 61 L Calcium 8.2 L Diagnostic Findings Venous Doppler Study 06/18/22 09:15 BILATERAL LOWER EXTREMITY VENOUS DOPPLER HISTORY: Acute pain and swelling of the lower legs acute bilat leg pain COMPARISON STUDY: Doppler study 09/30/2020 FINDINGS: There is normal compressibility, flow, and augmentation within the bilateral lower extremity deep venous systems. Mild subcutaneous edema. IMPRESSION: No DVT within the right or left lower extremity. ACT 112: Negative or not required by law. Electronically signed by: Dave Lagunas M.D. 06/18/2022 10:34 AM Medications Administered Current Inpatient Medications Amlodipine Besylate (Amlodipine Besylate 5 Mg Tab) 10 mg PO QAM MELLISA Stop: 07/16/22 08:59 Last Admin: 06/18/22 07:58 Dose: 10 mg Aspirin (Aspirin 81 Mg Chew) 81 mg PO DAILY MELLISA Stop: 07/16/22 08:59 Last Admin: 06/18/22 07:57 Dose: 81 mg Carvedilol (Carvedilol 3.125 Mg Tab) 3.125 mg PO BID [facility] Stop: 07/18/22 11:44 Last Admin: 06/18/22 13:45 Dose: 3.125 mg Hydralazine HCl (Hydralazine Tab 50 Mg Tab) 50 mg PO TID MELLISA Stop: 07/15/22 20:59 Last Admin: 06/18/22 13:46 Dose: 50 mg Acetaminophen (Ofirmev) 1,000 mg in 100 mls @ 400 mls/hr IV Q8H MELLISA Stop: 06/19/22 02:59 Last Infusion: 06/18/22 14:16 Dose: Infused Sodium Bicarbonate 150 meq/ (Dextrose) 1,150 mls @ 75 mls/hr IV .[id number] [facility] Stop: 06/19/22 11:29 Last Admin: 06/18/22 13:45 Dose: 75 mls/hr Losartan Potassium (Losartan Potassium 50 Mg Tab) 50 mg PO DAILY MELLISA Stop: 07/16/22 08:59 Last Admin: 06/17/22 09:48 Dose: Not Given Morphine Sulfate (Morphine Sulfate 4 Mg/Ml 1 Ml Carp\Vial) 4 mg IV Q4H PRN PRN Reason: severe pain Stop: 06/29/22 20:35 Last Admin: 06/17/22 23:19 Dose: 4 mg Naloxone HCl (Naloxone Hcl 0.4 Mg/1 Ml Vial/Carp) 0.1 mg IV Q5M PRN; Protocol PRN Reason: Oversedation/Resp Depression Stop: 06/30/22 17:18 Nitroglycerin (Nitroglycerin Sl 0.4 Mg/Tab Tab) 0.4 mg SL UD PRN PRN Reason: Angina Stop: 07/15/22 20:35 Ondansetron HCl (Ondansetron Inj 2 Mg/Ml 2 Ml Vial) 4 mg IV Q6H PRN PRN Reason: Nausea Stop: 07/15/22 20:35 Last Admin: 06/17/22 23:19 Dose: 4 mg Pantoprazole Sodium (Pantoprazole 40 Mg Tab) 40 mg PO [facility] Stop: 07/16/22 08:59 Last Admin: 06/18/22 07:55 Dose: 40 mg Phenol (Chloraseptic 1.4% Soln 180 Ml Btl) 2 sprays MT Q4H PRN PRN Reason: sore throat Stop: 07/17/22 08:01 Pravastatin Sodium (Pravastatin Sod 40 Mg Tab) 40 mg PO [facility] Stop: 07/16/22 08:59 Last Admin: 06/18/22 07:54 Dose: 40 mg
[2022-06-19] MEDS: SODIUM BICARBONATE 8.4% 150 MEQ in DEXTROSE 5% 1,000 ML IV SCH (03:45)
[2022-06-19] MEDS: hydrALAZINE TAB 50 MG TAB PO SCH ×3 (09:09→20:21)
--- NOTE | 2022-06-19 10:03 | XRay Report ---
KUB HISTORY: Follow up study in a patient with small bowel obstruction SBO COMPARISON: KUB 06/17/2022 FINDINGS: Cholecystectomy.. Hiatal hernia. The distal tip of enteric tube projects over the abdominal right upper quadrant, likely within the duodenum. There is decreased small bowel distention compared to the prior study. Contrast noted within the urinary bladder lumen. No renal calculi. No ureteral calculi. No pneumoperitoneum or pneumatosis. Degenerative changes of the spine, pelvis and hips. Lumb ar levoscoliosis with posterior interbody carole and screw fusion hardware. No fracture. IMPRESSION: Decreased small bowel distention from the prior study suggestive of resolving small bowel obstruction . ACT 112: Negative or not required by law. The above report was generated using voice recognition software. It may contain grammatical, syntax o r spelling errors. Electronically signed by: Dave Lagunas M.D. 06/19/2022 10:01 AM
[2022-06-19] MEDS: amLODIPine BESYLATE 5 MG TAB PO SCH (10:16)
[2022-06-19] MEDS: PRAVASTATIN SOD 40 MG TAB PO SCH (10:16)
[2022-06-19] MEDS: ASPIRIN 81 MG CHEW PO SCH (10:16)
[2022-06-19] MEDS: carvediloL 3.125 MG TAB PO SCH (10:17)
[2022-06-19] MEDS: PANTOprazole 40 MG TAB PO SCH (10:17)
[2022-06-19 10:18] LABS: Hematocrit (blood only) 27.7 % (34.1-44.9); Hemoglobin 9.1 g/dl (12.0-16.0); Mean Corpuscular Hemoglobin 28.7 pg (25.0-34.0); Mean Corpuscular Hgb Conc 32.9 g/dL (32.0-36.0); Mean Corpuscular Volume 87.4 fL (80.0-100.0); Mean Platelet Volume 10.8 fL (9.4-12.3); Platelet Count 248 K/uL (130-400); RDW Coefficient of Variation 15.6 % (11.5-14.5); Red Blood Count 3.17 M/uL (3.93-5.22); White Blood Count 10.45 K/ul (4.8-10.8)
[2022-06-19 10:36] LABS: BUN Creatinine Ratio 22.2 (10-20); Calcium 8.1 mg/dl (8.5-10.1); Creatinine Clr Calc Pharmacy 11.2 ml/min; Est GFR (African American) 12.2 ml/min; Est GFR (Non-African American) 10.6 ml/min; Potassium 4.4 mmol/L (3.5-5.1)
--- NOTE | 2022-06-19 11:12 | Cardiology Progress Note ---
Date of Service June 19, 2022 Assessment & Plan (1) SBO (small bowel obstruction): (2) Aortic stenosis: (3) CHF (congestive heart failure): (4) ASCVD (arteriosclerotic cardiovascular disease): Plan Patient improving today with less abdominal discomfort and audible bowel sounds. NG tube management as per surgery and internal medicine. Blood pressure trending upward. Carvedilol reduced to 3.125 mg twice daily secondary to borderline hypotension and bradycardia. Recommend titration back to 6.25 mg twice daily (outpatient dose). ASCVD. Patient with stable angina symptoms. Continue medical management as prescribed, as long as the patient is able to take oral medications. Patient is scheduled for high risk percutaneous coronary intervention of the left main coronary artery stenosis at [facility] on July 06, 2022. Echocardiogram demonstrating stable, borderline severe aortic valve stenosis, preserved LV systolic function and a small circumferential pericardial effusion. No evidence of tamponade. Admission and Anticipated Discharge Date Admission Date: June 15, 2022 Subjective Patient feeling better today. Abdominal pain and lower extremity discomfort improved. +Flatulence. Denies chest pain or shortness of breath. No palpitations or lightheadedness. Telemetry revealing sinus bradycardia in the 50s. Review of Systems Review of Systems: All systems reviewed & are unremarkable except as noted in Subjective Physical Exam Constitutional: + ill appearing; no acute distress Respiratory: normal respiratory effort; no respiratory distress and no labored breathing Auscultation: no crackles, no rales, no rhonchi and no wheezes Cardiovascular: Rate/Rhythm: regular rate and regular rhythm Heart Sounds: normal S1, normal S2 and + murmur (2/6 systolic ejection murmur heard at the right second intercostal) Gastrointestinal (Abdomen): Inspection/Auscultation: abdomen normal to inspection and normal bowel sounds; abdomen not distended Percussi on/Palpation: abdomen nontender, no guarding and abdomen not rigid Neurologic: CN's II-XI intact bilaterally and moves all extremities Motor/Sensory: no tremor Results & Data ([facility]) Vital Signs (Past 12 Hours) Vital Signs Temp Pulse Pulse Resp BP Pulse Ox O2 Del Method 06/19/22 07:00 65 06/19/22 07:46 36.9 C 61 18 157/54 H 99 Nasal Cannula 06/19/22 07:00 Room Air 06/19/22 02:50 36.8 C 59 L 16 142/51 H 98 Nasal Cannula 06/19/22 01:04 66 O2 Flow Rate 06/19/22 07:00 06/19/22 07:46 2 06/19/22 07:00 06/19/22 02:50 2 06/19/22 01:04
--- NOTE | 2022-06-19 11:27 | Nephrology Progress Note ---
Date of Service June 19, 2022 Assessment & Plan (1) SHEA (acute kidney injury): Plan: worsening nonoliguric Stage 2 acute kidney injury from contrast-induced nephro brian. She has baseline CKD with creatinine of 1.3. Admission creatinine was at baseline but increased to 2.3 the next day and up to 3.8 today The timing of rising creatinine likely correlates with the contrast administration ( she had IV con on 06/15 and on 06/16); also had OP losartan on day of IV con Patient has multiple medical problems including severe aortic stenosis and coronary artery disease. pt refused to discuss/declined HD when broached 06/18. not discussed today as no urgent need and labs not back when I saw her. Chemistries improved, particularly K. -cannot rule out need for HD this admission but will cont to monitor; no urgent need today -We will continue IV fluids and monitor renal function with daily BMP. -continue bicarb drip at 75 mill per hour for one more day -daily bmp -avoid further IV contrast -do not resume losartan until nephrology OKs Care coordinated w/ Dr Abrams (2) Small bowel obstruction: Plan: Patient is a NG tube for bowel rest per surgery. She is continuing IV fluids. Will monitor and replace electrolytes as needed. Admission and Anticipated Discharge Date Admission Date: June 15, 2022 Subjective passing gas; for possible NGT removal today; some L foot pain and LLE w/ ambulation and palpation; remains on track for C cath mid June [facility]; to go back up to regular OP dose coreg. Review of Systems Review of Systems: All systems reviewed & are unremarkable except as noted in Subjective Physical Exam Constitutional: well developed and well nourished up in chair; looks tired Eyes: EOM intact bilaterally ENMT: Ears: no external ear abnormality Nose: no external nose abnormality Mouth: + dry oral mucous membranes Neck: no nuchal rigidity Respiratory: normal respiratory effort Auscultation: + diminished lung sounds Cardiovascular: Rate/Rhythm: regular rate and regular rhythm Heart Sounds: + murmur Extremities: + edema (trace) Gastrointestinal (Abdomen): Inspection/Auscultation: normal bowel sounds Percussion/Palpation: abdomen soft; abdomen nontender Musculoskeletal: Extremities: strength 5/5 throughout Skin: no rashes, warm and dry Neurologic: chao, fluent speech, no tremor Psychiatric: Orientation: oriented x 3 Results & Data ([facility]) Vital Signs (Past 12 Hours) Vital Signs Temp Pulse Pulse Resp BP Pulse Ox O2 Del Method 06/19/22 07:00 65 06/19/22 07:46 36.9 C 61 18 157/54 H 99 Nasal Cannula 06/19/22 07:00 Room Air 06/19/22 02:50 36.8 C 59 L 16 142/51 H 98 Nasal Cannula 06/19/22 01:04 66 O2 Flow Rate 06/19/22 07:00 06/19/22 07:46 2 06/19/22 07:00 06/19/22 02:50 2 06/19/22 01:04 Laboratory Results 06/19/22 09:58 06/19/22 09:58
--- NOTE | 2022-06-19 13:18 | Hospitalist Progress Note ---
Date of Service June 19, 2022 Assessment & Plan (1) Small bowel obstruction: Plan: Acute SBO possibly related to scar tissue given multiple abdominal surgeries in the past vs ileus from chronic narcotic use. Keep NPO. Improved with NG tube placement and now passing gas overnight. Tube was clamped for 3 hours and no worsening of symptoms. We will DC NG tube at this time. (2) SHEA (acute kidney injury): Plan: worsening of renal function wtih poor PO intake and contrast administration. Nephrology consulted and following. Continue bicarb drip at this time. Continue holding losartan until creatinine is back to baseline. BP may be up in setting of ongoing pain and discomfort. Monitor BMP daily. (3) Coronary artery disease: Plan: Worsened cardiac disease seen during cath on 05/31/22. Plan for high [place] [facility] [place]. Ongoing anginal symptoms and dyspnea on exertion. Consult cardiology for help with monitoring and caring for these symptoms. She doesn't seem to be having any active ACS at this time. Cont medical management of ACS. (4) Bilateral leg pain: Plan: Possible chronic neuropathy but cannot get clarity on this from the patient. Cont tylenol q8h scheduled for the time being. Leg pain seems to be improved today. (5) Pericardial effusion: Plan: Known small pericardial effusion historically. Repeat echo performed with small circumferential pericardial effusion and no evidence of tamponade. No further workup or treatment at this time. (6) Aortic stenosis: Plan: moderate. There was consideration for TAVR, however, she is considered higher risk with poor chance for good recovery. Deferred at this time. (7) Anemia: Plan: chronic and around her baseline. Likely related to chronic disease. No overt bleeding. Cont to monitor. (8) DVT prophylaxis: Plan: heparin Full Code Dispo-continue to monitor on telemetry. Marilyn Abrams DO [facility] Hospitalist Admission and Anticipated Discharge Date Admission Date: June 15, 2022 Subjective 77 yo F presents with severe abdominal pain and SBO no abdominal pain reported no nausea throat pain still present leg pain is manageable today "as long as no one touches it" she did pass gas at least 6 times overnight . Review of Systems Review of Systems: All systems reviewed negative except as indicated above. Physical Exam Physical Exam: CONSTITUTIONAL: frail, elderly vitals as above, ill-appearing, NAD EYES: normal conjunctivae, no scleral icterus ENT: external ear and nose normal, MMM NECK: trachea midline, RESPIRATORY: clear to auscultation bilaterally, no crackles, rales or wheezes, normal respiratory effort CARDIOVASCULAR: regular rate and rhythm, 3/6 murmur head throughout precordium and murmur heard in iliac arteries, also. No gallops or rubs, no JVD, no peripheral edema, CHEST: inspection of chest was normal GASTROINTESTINAL: soft, no bowel sounds were audible on auscultation, generalized tenderness and guarding in all quadrants, nondistended MUSCULOSKELETAL: strength 5/5 throughout, head is normocephalic and atraumatic SKIN: warm and dry, lower legs are TTP bilaterally NEUROLOGIC: CN 2-12 grossly intact, no sensory deficit, normal cognition, normal speech, no tremor PSYCHIATRIC: alert cooperative and oriented to person, place and time. Euthymic mood, makes good eye contact, language grossly intact, recent and remote memory grossly intact. Results & Data Results & Data ([facility]) Vital Signs (Past 12 Hours) Vital Signs Temp Pulse Pulse Resp BP Pulse Ox O2 Del Method 06/19/22 11:54 37.0 C 65 18 156/59 H 93 Room Air 06/19/22 07:00 65 06/19/22 07:46 36.9 C 61 18 157/54 H 99 Nasal Cannula 06/19/22 07:00 Room Air 06/19/22 02:50 36.8 C 59 L 16 142/51 H 98 Nasal Cannula O2 Flow Rate 06/19/22 11:54 06/19/22 07:00 06/19/22 07:46 2 06/19/22 07:00 06/19/22 02:50 2 Laboratory Results Short CBC 06/19/22 Range/Units 09:58 WBC 10.45 (4.8-10.8) K/ul Hgb 9.1 L (12.0-16.0) g/dl Hct 27.7 L (34.1-44.9) % Plt Count 248 (130-400) K/uL BMP 06/19/22 09:58 Sodium 138 Potassium 4.4 Chloride 100 Carbon Dioxide 26 BUN 85 H Creatinine 3.83 H D Glucose 116 H Calcium 8.1 L Diagnostic Findings KUB X-Ray 06/19/22 07:00 KUB HISTORY: Follow up study in a patient with small bowel obstruction SBO COMPARISON: KUB 06/17/2022 FINDINGS: Cholecystectomy.. Hiatal hernia. The distal tip of enteric tube projects over the abdominal right upper quadrant, likely within the duodenum. There is decreased small bowel distention compared to the prior study. Contrast noted within the urinary bladder lumen. No renal calculi. No ureteral calculi. No pneumoperitoneum or pneumatosis. Degenerative changes of the spine, pelvis and hips. Lumbar levoscoliosis with posterior interbody carole and screw fusion hardware. No fracture. IMPRESSION: Decreased small bowel distention from the prior study suggestive of resolving small bowel obstruction. ACT 112: Negative or not required by law. The above report was generated using voice recognition software. It may contain grammatical, syntax or spelling errors. Electronically signed by: Dave Lagunas M.D. 06/19/2022 10:01 AM Medications Administered Current Inpatient Medications Amlodipine Besylate (Amlodipine Besylate 5 Mg Tab) 10 mg PO QAM [facility] Stop: 07/16/22 08:59 Last Admin: 06/19/22 10:16 Dose: 10 mg Aspirin (Aspirin 81 Mg Chew) 81 mg PO DAILY MELLISA Stop: 07/16/22 08:59 Last Admin: 06/19/22 10:16 Dose: 81 mg Carvedilol (Carvedilol 6.25 Mg Tab) 6.25 mg PO BID [facility] Stop: 07/19/22 20:59 Hydralazine HCl (Hydralazine Tab 50 Mg Tab) 50 mg PO TID MELLISA Stop: 07/15/22 20:59 Last Admin: 06/19/22 09:09 Dose: 50 mg Losartan Potassium (Losartan Potassium 50 Mg Tab) 50 mg PO DAILY MELLISA Stop: 07/16/22 08:59 Last Admin: 06/17/22 09:48 Dose: Not Given Morphine Sulfate (Morphine Sulfate 4 Mg/Ml 1 Ml Carp\\Vial) 4 mg IV Q4H PRN PRN Reason: severe pain Stop: 06/29/22 20:35 Last Admin: 06/17/22 23:19 Dose: 4 mg Naloxone HCl (Naloxone Hcl 0.4 Mg/1 Ml Vial/Carp) 0.1 mg IV Q5M PRN; Protocol PRN Reason: Oversedation/Resp Depression Stop: 06/30/22 17:18 Nitroglycerin (Nitroglycerin Sl 0.4 Mg/Tab Tab) 0.4 mg SL UD PRN PRN Reason: Angina Stop: 07/15/22 20:35 Ondansetron HCl (Ondansetron Inj 2 Mg/Ml 2 Ml Vial) 4 mg IV Q6H PRN PRN Reason: Nausea Stop: 07/15/22 20:35 Last Admin: 06/17/22 23:19 Dose: 4 mg Pantoprazole Sodium (Pantoprazole 40 Mg Tab) 40 mg PO [facility] Stop: 07/16/22 08:59 Last Admin: 06/19/22 10:17 Dose: 40 mg Phenol (Chloraseptic 1.4% Soln 180 Ml Btl) 2 sprays MT Q4H PRN PRN Reason: sore throat Stop: 07/17/22 08:01 Pravastatin Sodium (Pravastatin Sod 40 Mg Tab) 40 mg PO [facility] Stop: 07/16/22 08:59 Last Admin: 06/19/22 10:16 Dose: 40 mg
--- NOTE | 2022-06-19 15:59 | Surgery Progress Note ---
Date of Service June 19, 2022 Patient seen earlier today around 11:30 am. Assessment & Plan (1) SBO (small bowel obstruction): Plan: passing gas kub with resolving sbo NGT current clamped encourage OOB to chair and ambulation Dr. Berry as seen and examined pt, agrees with above. Admission and Anticipated Discharge Date Admission Date: June 15, 2022 Supervising Physician Co-Signing Physician Notes Receiving examined the patient personally and agree with the above assessment plan. She is passing gas. Her NG tube was clamped. If she does well, we will remove the NG tube later today. She may begin clears at that time if she tolerates well. We will continue to monitor. Subjective feeling better today passing some flatus, no bowel movement no n,v no pain with NGT currently clamped Physical Exam Constitutional: + frail appearing, cooperative and comfortable; no acute distress and not ill appearing Neck: normal visual inspection and trachea midline Respiratory: normal respiratory effort; no respiratory distress Gastrointestinal (Abdomen): Inspection/Auscultation: abdomen normal to inspection; abdomen not distended Percussion/Palpation: abdomen soft; abdomen nontender, no guarding and abdomen not rigid NGT present currently clamped. Skin: no rashes, warm and dry Psychiatric: Orientation: alert and oriented x 3 Results & Data ([facility]) Vital Signs (Past 12 Hours) Vital Signs Temp Pulse Pulse Resp BP Pulse Ox O2 Del Method 06/19/22 15:17 36.9 C 67 18 154/59 H 90 Room Air 06/19/22 11:54 37.0 C 65 18 156/59 H 93 Room Air 06/19/22 07:00 65 06/19/22 07:46 36.9 C 61 18 157/54 H 99 Nasal Cannula 06/19/22 07:00 Room Air O2 Flow Rate 06/19/22 15:17 06/19/22 11:54 06/19/22 07:00 06/19/22 07:46 2 06/19/22 07:00 Laboratory Results 06/19/22 06/19/22 Range/Units 09:58 09:58 WBC 10.45 (4.8-10.8) K/ul RBC 3.17 L (3.93-5.22) M/uL Hgb 9.1 L (12.0-16.0) g/dl Hct 27.7 L (34.1-44.9) % MCV 87.4 (80.0-100.0) fL MCH 28.7 (25.0-34.0) pg MCHC 32.9 (32.0-36.0) g/dL RDW Std Deviation 50.0 H (36.4-46.3) fL RDW Coeff of Breanne 15.6 H (11.5-14.5) % Plt Count 248 (130-400) K/uL MPV 10.8 (9.4-12.3) fL Sodium 138 (136-145) mmol/L Potassium 4.4 (3.5-5.1) mmol/L Chloride 100 (98-107) mmol/L Carbon Dioxide 26 (21-32) mmol/L Anion Gap 12 H (3-11) BUN 85 H (6-23) mg/dl Creatinine 3.83 H D (0.6-1.2) mg/dl Est Cr Clr Drug Dosing 11.2 ml/min Est GFR ( Amer) 12.2 ml/min Est GFR (Non-Af Amer) 10.6 ml/min BUN/Creatinine Ratio 22.2 H (10-20) Glucose 116 H (70-99(Fasting)) mg/dl Calcium 8.1 L (8.5-10.1) mg/dl Diagnostic Findings KUB HISTORY: Follow up study in a patient with small bowel obstruction SBO COMPARISON: KUB 06/17/2022 FINDINGS: Cholecystectomy.. Hiatal hernia. The distal tip of enteric tube projects over the abdominal right upper quadrant, likely within the duodenum. There is decreased small bowel distention compared to the prior study. Contrast noted within the urinary bladder lumen. No renal calculi. No ureteral calculi. No pneumoperitoneum or pneumatosis. Degenerative changes of the spine, pelvis and hips. Lumbar levoscoliosis with posterior interbody carole and screw fusion h ardware. No fracture. IMPRESSION: Decreased small bowel distention from the prior study suggestive of resolving small bowel obstruction.
[2022-06-19] MEDS: carvediloL 6.25 MG TAB PO SCH (20:21)
[2022-06-20] MEDS: ACETAMINOPHEN 325 MG TAB PO PRN ×2 (01:25→11:32)
[2022-06-20] MEDS: PRAVASTATIN SOD 40 MG TAB PO SCH (08:28)
[2022-06-20] MEDS: ASPIRIN 81 MG CHEW PO SCH (08:28)
[2022-06-20] MEDS: amLODIPine BESYLATE 5 MG TAB PO SCH (08:29)
[2022-06-20] MEDS: PANTOprazole 40 MG TAB PO SCH (08:29)
[2022-06-20] MEDS: hydrALAZINE TAB 50 MG TAB PO SCH ×3 (08:29→21:44)
[2022-06-20] MEDS: carvediloL 6.25 MG TAB PO SCH ×2 (08:30→21:44)
[2022-06-20 09:46] LABS: BUN Creatinine Ratio 25.3 (10-20); Calcium 7.9 mg/dl (8.5-10.1); Creatinine Clr Calc Pharmacy 13.4 ml/min; Est GFR (African American) 15.2 ml/min; Est GFR (Non-African American) 13.1 ml/min; Potassium 3.7 mmol/L (3.5-5.1)
--- NOTE | 2022-06-20 11:11 | Surgery Progress Note ---
Date of Service June 20, 2022 Assessment & Plan (1) SBO (small bowel obstruction): Plan: passing gas, BM NGT out advance diet to clears encourage OOB to chair and ambulation Admission and Anticipated Discharge Date Admission Date: June 15, 2022 Subjective feeling better today passing some flatus, small bowel movement no n,v no pain, NGT out Physical Exam Constitutional: + frail appearing; no acute distress and not ill appearing Gastrointestinal (Abdomen): Percussion/Palpation: abdomen soft; abdomen nontender, no guarding and abdomen not rigid Results & Data ([facility]) Vital Signs (Past 12 Hours) Vital Signs Temp Pulse Pulse Resp BP Pulse Ox O2 Del Method 06/20/22 11:05 37.0 C 58 L 18 138/57 L 92 Room Air 06/20/22 07:00 Room Air 06/20/22 07:42 37.3 C 63 18 162/63 H 91 Room Air 06/20/22 07:00 60 06/20/22 03:32 37.3 C 61 18 150/61 H 96 Nasal Cannula 06/19/22 23:30 37.2 C 66 18 149/50 H 90 Nasal Cannula 06/20/22 00:13 70 O2 Flow Rate 06/20/22 11:05 06/20/22 07:00 06/20/22 07:42 06/20/22 07:00 06/20/22 03:32 1 06/19/22 23:30 1 06/20/22 00:13
--- NOTE | 2022-06-20 11:33 | Nephrology Progress Note ---
Date of Service June 20, 2022 Assessment & Plan (1) SHEA (acute kidney injury): Plan: now improving nonoliguric Stage 2 (came as close as she could to Stage 3 w/o h itting it) acute kidney injury from contrast-induced nephropathy. She has baseline CKD with creatinine of 1.3. Admission creatinine was at baseline but increased to 2.3 the next day and peaked at 3.8 06/19, down to 3.2 today. The timing of rising creatinine likely correlates with the contrast administration (she had IV con on 06/15 and on 06/16); also had OP losartan on day of IV con Patient has multiple medical problems including severe aortic stenosis and coronary artery disease. pt refused to discuss/declined HD when broached 06/18. not discussed today as no urgent need. Chemistries improved, particularly K. -cannot rule out need for HD this admission but will cont to monitor; no urgent need today -no further IVF indicated -daily bmp -avoid further IV contrast -do not resume losartan until nephrology OKs (2) Small bowel obstruction: Plan: tolerating clears for now Admission and Anticipated Discharge Date Admission Date: June 15, 2022 Subjective no interval events. up in chair. getting up to bathroom frequently to void w/o issues. minimal BM. no abd pain. no dyspnea exertion or at rest. tolerating clears. Review of Systems Review of Systems: All systems reviewed & are unremarkable except as noted in Subjective Physical Exam Constitutional: well developed and well nourished Eyes: EOM intact bilaterally ENMT: Ears: no external ear abnormality Nose: no external nose abnormality Mouth: + dry oral mucous membranes Neck: no nuchal rigidity Respiratory: normal respiratory effort Auscultation: + diminished lung sounds, + crackles (bibasilar ) and + rhonchi Cardiovascular: Rate/Rhythm: regular rate and regular rhythm Heart Sounds: + murmur Extremities: + edema (trace) Gastrointestinal (Abdomen): Inspection/Auscultation: normal bowel sounds Percussion/Palpation: + abdomen firm; abdomen nontender and abdomen not rigid Musculoskeletal: Extremities: strength 5/5 throughout Skin: no rashes, warm and dry Neurologic: chao, fluent speech, no tremor Psychiatric: Orientation: oriented x 3 Results & Data ([facility]) Vital Signs (Past 12 Hours) Vital Signs Temp Pulse Pulse Resp BP Pulse Ox O2 Del Method 06/20/22 11:05 37.0 C 58 L 18 138/57 L 92 Room Air 06/20/22 07:00 Room Air 06/20/22 07:42 37.3 C 63 18 162/63 H 91 Room Air 06/20/22 07:00 60 06/20/22 03:32 37.3 C 61 18 150/61 H 96 Nasal Cannula 06/19/22 23:30 37.2 C 66 18 149/50 H 90 Nasal Cannula 06/20/22 00:13 70 O2 Flow Rate 06/20/22 11:05 06/20/22 07:00 06/20/22 07:42 06/20/22 07:00 06/20/22 03:32 1 06/19/22 23:30 1 06/20/22 00:13 Laboratory Results 06/19/22 09:58 06/20/22 08:51
--- NOTE | 2022-06-20 13:52 | Hospitalist Progress Note ---
Date of Service June 20, 2022 Assessment & Plan (1) Small bowel obstruction: Plan: Acute SBO possibly related to scar tissue given multiple abdominal surgeries in the past vs ileus from chronic narcotic use. NG tube removed and she is tolerating diet. Cont to advance diet as tolerated. Still on slight amount of oxygen. Would ensure resolution of hypoxia prior to and discharge. (2) SHEA (acute kidney injury): Plan: worsening of renal function with poor PO intake and contrast administration. Creat improved today to 3.2. Nephrology consulted and following. Held bicarb drip, no more fluids required at this time. Continue holding losartan until creatinine is back to baseline. Monitor BMP daily. (3) Coronary artery disease: Plan: Worsened cardiac disease seen during cath on 05/31/22. Plan for high risk PCI at [facility] [place] on 07/06. Ongoing chronic anginal symptoms and dyspnea on exertion. Consulted cardiology for help with monitoring and caring for these symptoms--currently no ACS. Cont medical management of chronic CAD. (4) Bilateral leg pain: Plan: appears most consistent with osteoarthritis today, and is ressponding to diclofenac topical gel. Would recommend she be discharged with this. (5) Pericardial effusion: Plan: Known small pericardial effusion historically. Repeat echo performed with small circumferential pericardial effusion and no evidence of tamponade. No further workup or treatment at this time. (6) Aortic stenosis: Plan: moderate. There was consideration for TAVR, however, she is considered higher risk with poor chance for good recovery. Deferred at this time. (7) Anemia: Plan: chronic and around her baseline. Likely related to chronic disease. No overt bleeding. Cont to monitor. (8) DVT prophylaxis: Plan: heparin Full Code Dispo-continue to monitor on telemetry. Marilyn Abrams DO [facility] Hospitalist Admission and Anticipated Discharge Date Admission Date: June 15, 2022 Subjective 77 yo F presents with severe abdominal pain and SBO no abdominal pain reported no nausea she is doing well on clears and interested in progressing her diet son at bedside knee pain has improved with just one dose of topical diclofenac Review of Systems 2 Review of Systems: All systems reviewed negative except as indicated above. Physical Exam Physical Exam: CONSTITUTIONAL: frail, elderly vitals as above, NAD EYES: normal conjunctivae, no scleral icterus ENT: external ear and nose normal, MMM NECK: trachea midline, RESPIRATORY: clear to auscultation bilaterally, no crackles, rales or wheezes, normal respiratory effort CARDIOVASCULAR: regular rate and rhythm, 3/6 murmur head throughout precordium and murmur heard in iliac arteries, also. No gallops or rubs, no JVD, no peripheral edema, CHEST: inspection of chest was normal GASTROINTESTINAL: soft, no bowel sounds were audible on auscultation, general ized tenderness and guarding in all quadrants, nondistended MUSCULOSKELETAL: strength 5/5 throughout, head is normocephalic and atraumatic SKIN: warm and dry, lower legs are TTP bilaterally NEUROLOGIC: CN 2-12 grossly intact, no sensory deficit, normal cognition, normal speech, no tremor PSYCHIATRIC: alert cooperative and oriented to person, place and time. Euthymic mood, makes good eye contact, language grossly intact, recent and remote memory grossly intact. Results & Data Results & Data ([facility]) Vital Signs (Past 12 Hours) Vital Signs Temp Pulse Pulse Resp BP Pulse Ox O2 Del Method 06/20/22 11:05 37.0 C 58 L 18 138/57 L 92 Room Air 06/20/22 07:00 Room Air 06/20/22 07:42 37.3 C 63 18 162/63 H 91 Room Air 06/20/22 07:00 60 06/20/22 03:32 37.3 C 61 18 150/61 H 96 Nasal Cannula O2 Flow Rate 06/20/22 11:05 06/20/22 07:00 06/20/22 07:42 06/20/22 07:00 06/20/22 03:32 1 Laboratory Results [facility] 06/20/22 08:51 Sodium 139 Potassium 3.7 Chloride 100 Carbon Dioxide 30 BUN 81 H Creatinine 3.20 H D Glucose 141 H Calcium 7.9 L Medications Administered Current Inpatient Medications Acetaminophen (Acetaminophen 325 Mg Tab) 650 mg PO Q4H PRN PRN Reason: Pain Stop: 07/20/22 01:05 Last Admin: 06/20/22 11:32 Dose: 650 mg Amlodipine Besylate (Amlodipine Besylate 5 Mg Tab) 10 mg PO QAM [facility] Stop: 07/16/22 08:59 Last Admin: 06/20/22 08:29 Dose: 10 mg Aspirin (Aspirin 81 Mg Chew) 81 mg PO DAILY MELLISA Stop: 07/16/22 08:59 Last Admin: 06/20/22 08:28 Dose: 81 mg Carvedilol (Carvedilol 6.25 Mg Tab) 6.25 mg PO BID [facility] Stop: 07/19/22 20:59 Last Admin: 06/20/22 08:30 Dose: 6.25 mg Diclofenac Sodium (Diclofenac Sod 1% Gel 100 Gm Tube) 4 gm EXT TID [facility]; Protocol Stop: 07/20/22 13:59 Hydralazine HCl (Hydralazine Tab 50 Mg Tab) 50 mg PO TID [facility] Stop: 07/15/22 20:59 Last Admin: 06/20/22 13:18 Dose: 50 mg Morphine Sulfate (Morphine Sulfate 4 Mg/Ml 1 Ml Carp\Vial) 4 mg IV Q4H PRN PRN Reason: severe pain Stop: 06/29/22 20:35 Last Admin: 06/17/22 23:19 Dose: 4 mg Naloxone HCl (Naloxone Hcl 0.4 Mg/1 Ml Vial/Carp) 0.1 mg IV Q5M PRN; Protocol PRN Reason: Oversedation/Resp Depression Stop: 06/30/22 17:18 Nitroglycerin (Nitroglycerin Sl 0.4 Mg/Tab Tab) 0.4 mg SL UD PRN PRN Reason: Angina Stop: 07/15/22 20:35 Ondansetron HCl (Ondansetron Inj 2 Mg/Ml 2 Ml Vial) 4 mg IV Q6H PRN PRN Reason: Nausea Stop: 07/15/22 20:35 Last Admin: 06/17/22 23:19 Dose: 4 mg Pantoprazole Sodium (Pantoprazole 40 Mg Tab) [address] [facility] Stop: 07/16/22 08:59 Last Admin: 06/20/22 08:29 Dose: 40 mg Phenol (Chloraseptic 1.4% Soln 180 Ml Btl) 2 sprays MT Q4H PRN PRN Reason: sore throat Stop: 07/17/22 08:01 Pravastatin Sodium (Pravastatin Sod 40 Mg Tab) [facility] Stop: 07/16/22 08:59 Last Admin: 06/20/22 08:28 Dose: 40 mg
[2022-06-20] MEDS: DICLOFENAC SOD 1% GEL 100 GM TUBE EXT SCH ×2 (14:49→21:43)
--- NOTE | 2022-06-20 14:54 | Cardiology Progress Note ---
Date of Service June 20, 2022 Assessment & Plan (1) SBO (small bowel obstruction): (2) Aortic stenosis: (3) CHF (congestive heart failure): (4) ASCVD (arteriosclerotic cardiovascular disease): (5) SHEA (acute kidney injury): Plan Patient improving today with less abdominal discomfort and audible bowel sounds. NG tube removed. Adequate blood pressure control at this time. Continue carvedilol 6.25 mg twice daily and amlodipine. Losartan will remain on hold due to acute kidney injury. Nephrology input appreciated. Patient was sign/symptoms of mild volume overload associated with acute renal insufficiency and IV fluids. Will likely require diuretic therapy, however, will await repeat lab studies in the a.m. 06/21/2022. If respiratory symptoms worsen, IV Lasix can be considered prior to repeat lab testing. ASCVD. Patient with stable angina symptoms. Continue medical management as prescribed, as long as the patient is able to take oral medications. Patient is scheduled for high risk percutaneous coronary intervention of the left main coronary artery stenosis at [facility] on July 06, 2022, although this may be delayed or rescheduled pending renal recovery during current admission. Echocardiogram demonstrating stable, borderline severe aortic valve stenosis, preserved LV systolic function and a small circumferential pericardial effusion. No evidence of tamponade. Admission and Anticipated Discharge Date Admission Date: June 15, 2022 Subjective Patient seen examined the bedside. Complains of dyspnea and edema. Fluid balance +2 L. Losartan on hold due to acute kidney injury, contrast-induced nephropathy. NG tube removed. No chest pain. Review of Systems Review of Systems: All systems reviewed & are unremarkable except as noted in Subjective Physical Exam Constitutional: + ill appearing; no acute distress Respiratory: normal respiratory effort; no respiratory distress and no labored breathing Auscultation: + crackles (Right base); no rhonchi and no wheezes Cardiovascular: Rate/Rhythm: regular rate and regular rhythm Heart Sounds: normal S1, normal S2 and + murmur (2/6 systolic ejection murmur heard at the right second intercostal) Extremities: + edema (Mild bilateral pedal edema.) Gastrointestinal (Abdomen): Inspection/Auscultation: abdomen normal to inspection and normal bowel sounds; abdomen not distended Percussion/Palpation: abdomen nontender, no guarding and abdomen not rigid Neurologic: CN's II-XI intact bilaterally and moves all extremities Motor/Sensory: no tremor Results & Data ([facility]) Vital Signs (Past 12 Hours) Vital Signs Temp Pulse Pulse Resp BP Pulse Ox O2 Del Method 06/20/22 11:05 37.0 C 58 L 18 138/57 L 92 Room Air 06/20/22 07:00 Room Air 06/20/22 07:42 37.3 C 63 18 162/63 H 91 Room Air 06/20/22 07:00 60 06/20/22 03:32 37.3 C 61 18 150/61 H 96 Nasal Cannula O2 Flow Rate 06/20/22 11:05 06/20/22 07:00 06/20/22 07:42 06/20/22 07:00 06/20/22 03:32 1
[2022-06-21 06:55] LABS: Hematocrit (blood only) 24.4 % (34.1-44.9); Hemoglobin 7.9 g/dl (12.0-16.0); Mean Corpuscular Hemoglobin 28.4 pg (25.0-34.0); Mean Corpuscular Hgb Conc 32.4 g/dL (32.0-36.0); Mean Corpuscular Volume 87.8 fL (80.0-100.0); Mean Platelet Volume 10.6 fL (9.4-12.3); Platelet Count 222 K/uL (130-400); RDW Coefficient of Variation 15.1 % (11.5-14.5); Red Blood Count 2.78 M/uL (3.93-5.22); White Blood Count 6.63 K/ul (4.8-10.8)
[2022-06-21 07:31] LABS: BUN Creatinine Ratio 32.1 (10-20); Calcium 8.2 mg/dl (8.5-10.1); Creatinine Clr Calc Pharmacy 19.9 ml/min; Est GFR (African American) 24.6 ml/min; Est GFR (Non-African American) 21.2 ml/min; Potassium 3.6 mmol/L (3.5-5.1); Uric Acid 9.1 mg/dl (2.6-7.2)
[2022-06-21] MEDS: DICLOFENAC SOD 1% GEL 100 GM TUBE EXT SCH ×4 (08:18→21:51)
[2022-06-21] MEDS: hydrALAZINE TAB 50 MG TAB PO SCH ×3 (08:18→21:48)
[2022-06-21] MEDS: PRAVASTATIN SOD 40 MG TAB PO SCH (08:19)
[2022-06-21] MEDS: ASPIRIN 81 MG CHEW PO SCH (08:19)
[2022-06-21] MEDS: PANTOprazole 40 MG TAB PO SCH (08:19)
[2022-06-21] MEDS: carvediloL 6.25 MG TAB PO SCH ×2 (08:19→21:49)
[2022-06-21] MEDS: amLODIPine BESYLATE 5 MG TAB PO SCH (08:19)
--- NOTE | 2022-06-21 10:07 | Surgery Progress Note ---
Date of Service June 21, 2022 Assessment & Plan (1) SBO (small bowel obstruction): Plan: passing gas; BMs Advance diet as tolerated encourage OOB to chair and ambulation will sign off for now. Please call with questions or concerns Admission and Anticipated Discharge Date Admission Date: June 15, 2022 Subjective Continuing to pass gas and have bowel movements. Tolerating diet. Physical Exam Constitutional: + thin and + frail appearing; no acute distress and not ill appearing Neck: trachea midline, no thyromegaly Respiratory: normal respiratory effort; no respiratory distress Cardiovascular: Rate/Rhythm: regular rate and regular rhythm Gastrointestinal (Abdomen): Inspection/Auscultation: abdomen normal to inspection; abdomen not distended Percussion/Palpation: abdomen soft; abdomen nontender, no guarding and abdomen not rigid Skin: no rashes, warm and dry Psychiatric: A+Ox3, euthymic affect Results & Data ([facility]) Vital Signs (Past 12 Hours) Vital Signs Temp Pulse Pulse Resp BP BP Pulse Ox 06/21/22 08:30 37.1 C 62 16 181/56 H 94 06/21/22 07:03 59 L 06/21/22 03:01 37.2 C 63 18 170/64 H 97 06/20/22 23:38 06/20/22 23:36 68 06/20/22 22:52 37.3 C 68 18 161/59 H 96 O2 Del Method O2 Flow Rate 06/21/22 08:30 Room Air 06/21/22 07:03 06/21/22 03:01 Room Air 1 06/20/22 23:38 Nasal Cannula 1 06/20/22 23:36 06/20/22 22:52 Nasal Cannula 2
[2022-06-21] MEDS ORDERED: hydrOXYzine HCl 25 MG TAB PO STA (11:08)
--- NOTE | 2022-06-21 11:49 | Hospitalist Progress Note ---
Date of Service June 21, 2022 Assessment & Plan (1) Small bowel obstruction: Plan: per Dr. Abrams's notes with addendum: Acute SBO possibly related to scar tissue given multiple abdominal surgeries in the past vs ileus from chronic narcotic use. off NG tube (+) flatus no abdominal pain, distention advance diet to soft observe (2) SHEA (acute kidney injury): Plan: worsening of renal function with poor PO intake and contrast administration. crea at baseline 1.5 increased to 3.8 improving, now 2.1 off HCO3 drip Losartan held Nephro on board (3) Coronary artery disease: Plan: Worsened cardiac disease seen during cath on 05/31/22. Plan for high risk PCI at [facility] on 07/06. Ongoing chronic anginal symptoms and dyspnea on exertion. Cont medical management of chronic CAD. (4) Bilateral leg pain: Plan: improving continue Diclofenac gel (5) Pericardial effusion: Plan: Known small pericardial effusion historically. Repeat echo performed with small circumferential pericardial effusion and no evidence of tamponade. No further workup or treatment at this time. (6) Aortic stenosis: Plan: moderate. There was consideration for TAVR, however, she is considered higher risk with poor chance for good recovery. Deferred at this time. (7) Anemia: Plan: chronic and around her baseline. Likely related to chronic disease. No overt bleeding. Cont to monitor. Hg 9/1--> 7.9 no signs of bleeding monitor (8) DVT prophylaxis: Plan: heparin Full Code Dispo - pending - PT/OT evaluation: possible home vs Rehab Admission and Anticipated Discharge Date Admission Date: June 15, 2022 Subjective ff up for SBO, etc seen resting in bed, sitting up not in distress, comfortable patient somewhat upset - has not slept in 2-3 days also would like her diet to be advanced no chest pain, dyspnea, palpitations, dizziness voiding with no problems no other symptoms Review of Systems Review of Systems: all noted and negative except for above Physical Exam Physical Exam: General- oriented x 3, not in distress, speaks in sentences with no effort or accessory muscle use Eyes- anicteric Neck- no JVD Lungs- clear breath sounds bilaterally, no rales/wheezes Heart- normal rate, regular rhythm; Grade 3/6 holosystolic murmur Abdomen- normal bowel sounds, nondistended, soft, nontender Extremities- grade 1 lower leg edema, no calf tenderness Neuro- alert, oriented x 3; no gross focal neurologic deficits Skin- warm & dry Results & Data Results & Data ([facility]) Vital Signs (Past 12 Hours) Vital Signs Temp Pulse Pulse Resp BP Pulse Ox O2 Del Method 06/21/22 10:08 Nasal Cannula 06/21/22 08:30 37.1 C 62 16 181/56 H 94 Room Air 06/21/22 07:03 59 L 06/21/22 03:01 37.2 C 63 18 170/64 H 97 Room Air O2 Flow Rate 06/21/22 10:08 2 06/21/22 08:30 06/21/22 07:03 06/21/22 03:01 1 all noted and reviewed including below
--- NOTE | 2022-06-21 12:11 | Cardiology Progress Note ---
Date of Service June 21, 2022 Assessment & Plan (1) SBO (small bowel obstruction): (2) Aortic stenosis: (3) CHF (congestive heart failure): (4) ASCVD (arteriosclerotic cardiovascular disease): (5) SHEA (acute kidney injury): Plan Patient improving today with less abdominal discomfort and audible bowel sounds. Advance diet as per primary service and surgery. Continue carvedilol 6.25 mg twice daily and amlodipine. ARB currently on hold. Restart pending approval by nephrology when serum creatinine has returned to baseline. Respiratory status improved today. Continue to monitor. Consideration for diuretic therapy as renal function improves. ASCVD. Patient with stable angina symptoms. Continue medical management as prescribed, as long as the patient is able to take oral medications. Patient is scheduled for high risk percutaneous coronary intervention of the left main coronary artery stenosis at [facility] on July 06, 2022, although this may be delayed or rescheduled pending renal recovery during current admission. Echocardiogram demonstrating stable, borderline severe aortic valve stenosis, preserved LV systolic function and a small circumferential pericardial effusion. No evidence of tamponade. Admission and Anticipated Discharge Date Admission Date: June 15, 2022 Subjective Patient seen examined at the bedside. Shortness of breath improved today. Denies abdominal discomfort. No chest pain or shortness of breath. Telemetry reveals sinus bradycardia in the 50s. Blood pressure elevated. Complains of insomnia. Requesting sleep aid. Losartan remains on hold due to renal insufficiency. Creatinine trending downward to 2.15. Review of Systems Review of Systems: All systems reviewed & are unremarkable except as noted in Subjective Physical Exam Constitutional: + ill appearing; no acute distress Respiratory: normal respiratory effort; no respiratory distress and no labored breathing Auscultation: + crackles (Right base); no rales, no rhonchi and no wheezes Cardiovascular: Rate/Rhythm: regular rate and regular rhythm Heart Sounds: normal S1, normal S2 and + murmur (2/6 systolic ejection murmur heard at the right second intercostal) Extremities: + edema (Mild bilateral pedal edema.) Gastrointestinal (Abdomen): Inspection/Auscultation: abdomen normal to inspection and normal bowel sounds; abdomen not distended Percussion/Palpation: abdomen nontender, no guarding and abdomen not rigid Neurologic: CN's II-XI intact bilaterally and moves all extremities Motor/Sensory: no tremor Results & Data ([facility]) Vital Signs (Past 12 Hours) Vital Signs Temp Pulse Pulse Resp BP Pulse Ox O2 Del Method 06/21/22 11:55 36.8 C 60 16 161/61 H 90 Room Air 06/21/22 10:08 Nasal Cannula 06/21/22 08:30 37.1 C 62 16 181/56 H 94 Room Air 06/21/22 07:03 59 L 06/21/22 03:01 37.2 C 63 18 170/64 H 97 Room Air O2 Flow Rate 06/21/22 11:55 06/21/22 10:08 2 06/21/22 08:30 06/21/22 07:03 06/21/22 03:01 1
--- NOTE | 2022-06-21 14:53 | Nephrology Progress Note ---
Date of Service June 21, 2022 Assessment & Plan (1) SHEA (acute kidney injury): Plan: further improving nonoliguric Stage 2 (came as close as she could to Stage 3 w/o hitting it) acute kidney injury from contrast-induced nephropathy. She has baseline CKD with creatinine of 1.3. Admission creatinine was at baseline but increased to 2.3 the next day and peaked at 3.8 06/19, down to 3.2 today. The timing of rising creatinine correlates with IV contrast administration (she had IV con on 06/15 and on 06/16); also had OP losartan on day of IV con Patient has multiple medical problems including severe aortic stenosis and coronary artery disease. pt refused to discuss/declined HD when broached 06/18. not discussed further as no urgent need. Chemistries improved, particularly K. -no further IVF indicated -daily bmp -continue to hold torsemide, K supplements, losartan > may be able to resume diuretic tomorrow depending on status -encourage po intake -avoid further IV contrast (2) Small bowel obstruction: Plan: on a low fiber diet but ? minimal po intake; per primary service Admission and Anticipated Discharge Date Admission Date: June 15, 2022 Subjective minimal po; tells me she hurts all over and has chills both of which she attributes to weather. no worse sob. ongoing/unchanged edema. no n/v. denies voiding challenges. small BM today Review of Systems Review of Systems: All systems reviewed & are unremarkable except as noted in Subjective Physical Exam Constitutional: well developed and well nourished (sitting in bed on RA) Eyes: EOM intact bilaterally ENMT: Ears: no external ear abnormality Nose: no external nose abnormality Mouth: + dry oral mucous membranes Neck: no nuchal rigidity Respiratory: normal respiratory effort Auscultation: + diminished lung s ounds and + crackles (bibasilar ) Cardiovascular: Rate/Rhythm: regular rate and regular rhythm Heart Sounds: + murmur Extremities: + edema (trace-1+) Gastrointestinal (Abdomen): Inspection/Auscultation: normal bowel sounds Percussion/Palpation: abdomen soft and + abdomen firm; abdomen nontender and abdomen not rigid Musculoskeletal: Extremities: strength 5/5 throughout Skin: no rashes, warm and dry Neurologic: chao, fluent speech, no tremor Psychiatric: Orientation: oriented x 3 Results & Data ([facility]) Vital Signs (Past 12 Hours) Vital Signs Temp Pulse Pulse Resp BP Pulse Ox O2 Del Method 06/21/22 11:55 36.8 C 60 16 161/61 H 90 Room Air 06/21/22 10:08 Nasal Cannula 06/21/22 08:30 37.1 C 62 16 181/56 H 94 Room Air 06/21/22 07:03 59 L 06/21/22 03:01 37.2 C 63 18 170/64 H 97 Room Air O2 Flow Rate 06/21/22 11:55 06/21/22 10:08 2 06/21/22 08:30 06/21/22 07:03 06/21/22 03:01 1 Laboratory Results 06/21/22 06:15 06/21/22 06:15
[2022-06-21] MEDS: hydrOXYzine HCl 25 MG TAB PO PRN (21:48)
[2022-06-22] MEDS ORDERED: CALCIUM CARBONATE 500 MG CHEWABLE TAB PO STA (01:20)
[2022-06-22] MEDS: amLODIPine BESYLATE 5 MG TAB PO SCH ×2 (06:31→07:29)
[2022-06-22 06:36] LABS: Basophils # (auto) 0.05 K/uL (0-0.2); Basophils % (auto) 0.8 %; Eosinophils # (auto) 0.28 K/uL (0-0.50); Eosinophils % (auto) 4.7 %; Hematocrit (blood only) 25.2 % (34.1-44.9); Hemoglobin 8.2 g/dl (12.0-16.0); Immature Granulocytes # (auto) 0.03 K/uL (0.00-0.02); Immature Granulocytes % (auto) 0.5 %; Lymphocytes # (auto) 1.15 K/uL (1.2-3.4); Lymphocytes % (auto) 19.1 %; Mean Corpuscular Hgb Conc 32.5 g/dL (32.0-36.0); Mean Platelet Volume 10.2 fL (9.4-12.3); Monocytes # (auto) 0.72 K/uL (0.24-0.82); Neutrophils # (auto) 3.79 K/uL (1.4-6.5); Neutrophils % (auto) 62.9 %; Platelet Count 207 K/uL (130-400); RDW Coefficient of Variation 14.9 % (11.5-14.5); RDW Standard Deviation 48.3 fL (36.4-46.3); Red Blood Count 2.83 M/uL (3.93-5.22); White Blood Count 6.02 K/ul (4.8-10.8)
[2022-06-22 07:03] LABS: BUN Creatinine Ratio 32.1 (10-20); Calcium 8.5 mg/dl (8.5-10.1); Creatinine Clr Calc Pharmacy 26.5 ml/min; Est GFR (African American) 33.9 ml/min; Est GFR (Non-African American) 29.2 ml/min
[2022-06-22] MEDS: carvediloL 6.25 MG TAB PO SCH ×2 (07:28→21:07)
[2022-06-22] MEDS: ASPIRIN 81 MG CHEW PO SCH (07:29)
[2022-06-22] MEDS: PANTOprazole 40 MG TAB PO SCH (07:29)
[2022-06-22] MEDS: hydrALAZINE TAB 50 MG TAB PO SCH ×3 (07:29→21:09)
[2022-06-22] MEDS: PRAVASTATIN SOD 40 MG TAB PO SCH (07:29)
[2022-06-22] MEDS: DICLOFENAC SOD 1% GEL 100 GM TUBE EXT SCH ×3 (07:30→21:10)
--- NOTE | 2022-06-22 08:33 | Nephrology Progress Note ---
Date of Service June 22, 2022 Assessment & Plan (1) SHEA (acute kidney injury): Plan: further improving nonoliguric Stage 2 (came as close as she could to Stage 3 w/o hitting it) acute kidney injury from contrast-induced nephropathy. She has baseline CKD with creatinine of 1.3. Admission creatinine was at baseline but increased to 2.3 the next day and peaked at 3.8 06/19, down to 3.2 today. The timing of rising creatinine correlates with IV contrast administration (she had IV con on 06/15 and on 06/16); also had OP losartan on day of IV con Patient has multiple medical problems including severe aortic stenosis and coronary artery disease. pt refused to discuss/declined HD when broached 06/18. not discussed further as no urgent need. Chemistries improved, particularly K. -no further IVF indicated -daily bmp -resumed OP torsemide, losartan today > also started K 10 mEq daily -encourage po intake -avoid further IV contrast (2) Small bowel obstruction: Plan: on a low fiber diet but ? minimal po intake; per primary service Admission and Anticipated Discharge Date Admission Date: June 15, 2022 Subjective still cold; but less aching pain; edema down some Review of Systems Review of Systems: All systems reviewed & are unremarkable except as noted in Subjective Physical Exam Constitutional: well developed and well nourished (sitting in bed on RA) Eyes: EOM intact bilaterally ENMT: Ears: no external ear abnormality Nose: no external nose abnormality Mouth: + dry oral mucous membranes Neck: no nuchal rigidity Respiratory: normal respiratory effort Auscultation: + diminished lung sounds and + crackles (bibasilar ) Cardiovascular: Rate/Rhythm: regular rate and regular rhythm Heart Sounds: + murmur Extremities: + edema (trace-1+) Gastrointestinal (Abdomen): Inspection/Auscultation: normal bowel sounds Percussion/Palpation: abdomen soft and + abdomen firm; abdomen nontender and abdomen not rigid Musculoskeletal: Extremities: strength 5/5 throughout Skin: no rashes, warm and dry Neurologic: chao, fluent speech, no tremor Psychiatric: Orientation: oriented x 3 Results & Data ([facility]) Vital Signs (Past 12 Hours) Vital Signs Temp Pulse Pulse Resp BP BP Pulse Ox 06/22/22 07:07 58 L 06/22/22 06:00 37.2 C 62 18 180/67 H 98 12/01/22 03:00 37.2 C 56 L 18 159/81 H 100 06/21/22 23:27 59 L 06/21/22 22:55 37.2 C 59 L 20 162/64 H 98 06/21/22 21:52 O2 Del Method O2 Flow Rate 06/22/22 07:07 06/22/22 06:00 Nasal Cannula 3 06/22/22 03:00 Nasal Cannula 3 06/21/22 23:27 06/21/22 22:55 Nasal Cannula 3 06/21/22 21:52 Nasal Cannula 3 Laboratory Results 06/22/22 06:24 06/22/22 06:24
[2022-06-22] MEDS: LOSARTAN POTASSIUM 50 MG TAB PO SCH (09:26)
[2022-06-22] MEDS: POTASSIUM CHLORIDE 10 MEQ TABCR PO SCH (09:26)
[2022-06-22] MEDS: TORSEMIDE 10 MG TAB PO SCH (09:26)
--- NOTE | 2022-06-22 13:38 | Cardiology Progress Note ---
Date of Service June 22, 2022 Assessment & Plan (1) SBO (small bowel obstruction): (2) Aortic stenosis: (3) CHF (congestive heart failure): (4) ASCVD (arteriosclerotic cardiovascular disease): (5) SHEA (acute kidney injury): Plan Losartan and low-dose torsemide restarted by nephrology. Continue to monitor GFR and electrolytes daily. Continue carvedilol 6.25 mg twice daily and amlodipine. ASCVD. Patient with stable angina symptoms. Continue medical management as prescribed, as long as the patient is able to take oral medications. Patient is scheduled for high risk percutaneous coronary intervention of the left main coronary artery stenosis at [facility] on July 06, 2022. Echocardiogram demonstrating stable, borderline severe aortic valve stenosis, preserved LV systolic function and a small circumferential pericardial effusion. No evidence of tamponade. Admission and Anticipated Discharge Date Admission Date: June 15, 2022 Subjective Patient seen examined the bedside. Continues to improve. Diet advanced. Losartan and torsemide restarted by nephrology. Denies chest pain or shortness of breath. Telemetry reveals sinus bradycardia in the 50s. Review of Systems Review of Systems: All systems reviewed & are unremarkable except as noted in Subjective Physical Exam Constitutional: + ill appearing; no acute distress Respiratory: normal respiratory effort; no respiratory distress and no labored breathing Auscultation: + crackles (Right base); no rales, no rhonchi and no wheezes Cardiovascular: Rate/Rhythm: regular rate and regular rhythm Heart Sounds: normal S1, normal S2 and + murmur (2/6 systolic ejection murmur heard at the right second intercostal) Extremities: + edema (Mild bilateral pedal edema.) Gastrointestinal (Abdomen): Inspection/Auscultation: abdomen normal to inspection and normal bowel sounds; abdomen not distended Percussion/Palpation: abdomen nontender, no guarding and abdomen not rigid Neurologic: CN's II-XI intact bilaterally and moves all extremities Motor/Sensory: no tremor Results & Data ([facility]) Vital Signs (Past 12 Hours) Vital Signs Temp Pulse Pulse Resp BP Pulse Ox O2 Del Method 06/22/22 12:21 36.8 C 56 L 16 143/54 H 98 Nasal Cannula 06/22/22 11:18 37.0 C 56 L 16 145/51 H 99 Room Air 06/22/22 07:07 58 L 06/22/22 06:00 37.2 C 62 18 180/67 H 98 Nasal Cannula 06/22/22 03:00 37.2 C 56 L 18 159/81 H 100 Nasal Cannula O2 Flow Rate 06/22/22 12:21 2 06/22/22 11:18 06/22/22 07:07 06/22/22 06:00 3 06/22/22 03:00 3
--- NOTE | 2022-06-22 16:37 | Hospitalist Progress Note ---
Date of Service June 22, 2022 Assessment & Plan (1) Small bowel obstruction: Plan: per Dr. Abrams's notes with addendum: Acute SBO possibly related to scar tissue given multiple abdominal surgeries in the past vs ileus from chronic narcotic use. off NG tube (+) flatus no abdominal pain, distention Tolerating diet well so far +2 BMs since yesterday Continue to monitor (2) SHEA (acute kidney injury): Plan: worsening of renal function with poor PO intake and contrast administration. crea at baseline 1.5 increased to 3.8 improving, now 2.1--> 1.65 off HCO3 drip Losartan held Nephro on board Torsemide resumed (3) Coronary artery disease: Plan: Worsened cardiac disease seen during cath on 05/31/22. Plan for high risk PCI at [facility] on 07/06. Ongoing chronic anginal symptoms and dyspnea on exertion. Cont medical management of chronic CAD. (4) Bilateral leg pain: Plan: improving continue Diclofenac gel (5) Pericardial effusion: Plan: Known small pericardial effusion historically. Repeat echo performed with small circumferential pericardial effusion and no evidence of tamponade. No further workup or treatment at this time. (6) Aortic stenosis: Plan: moderate. There was consideration for TAVR, however, she is considered higher risk with poor chance for good recovery. Deferred at this time. (7) Anemia: Plan: chronic and around her baseline. Likely related to chronic disease. No overt bleeding. Cont to monitor. Hg 9/1--> 8.2 no signs of bleeding monitor (8) DVT prophylaxis: Plan: heparin Full Code Dispo - pending - PT/OT evaluation: possible home vs Rehab Admission and Anticipated Discharge Date Admission Date: June 15, 2022 Subjective Follow-up for small bowel obstruction, acute renal failure, etc. Seen resting in bed, sitting up, not in distress States that she feels better today compared to yesterday Tolerating food well Has some mild leg discomfort no chest pain, dyspnea, palpitations, dizziness No other symptoms Review of Systems Review of Systems: all noted and negative except for above Physical Exam Physical Exam: General- oriented x 3, not in distress, speaks in sentences with no effort or accessory muscle use Eyes- anicteric Neck- no JVD Lungs- clear breath sounds bilaterally, no rales/wheezes Heart- normal rate, regular rhythm; no murmurs Abdomen- normal bowel sounds, nondistended, soft, nontender Extremities-grade 1 lower extremity edema, no erythema/warmth/tenderness, no calf tenderness Neuro- alert, oriented x 3; no gross focal neurologic deficits Skin- warm & dry Results & Data Results & Data ([facility]) Vital Signs (Past 12 Hours) Vital Signs Temp Pulse Pulse Resp BP Pulse Ox O2 Del Method 06/22/22 16:17 36.7 C 60 18 158/65 H 97 Nasal Cannula 06/22/22 15:31 59 L 06/22/22 12:21 36.8 C 56 L 16 143/54 H 98 Nasal Cannula 06/22/22 11:18 37.0 C 56 L 16 145/51 H 99 Room Air 06/22/22 07:07 58 L 06/22/22 06:00 37.2 C 62 18 180/67 H 98 Nasal Cannula O2 Flow Rate 06/22/22 16:17 2 06/22/22 15:31 06/22/22 12:21 2 06/22/22 11:18 06/22/22 07:07 06/22/22 06:00 3 all noted and reviewed including below
[2022-06-22] MEDS: ACETAMINOPHEN 325 MG TAB PO PRN (21:09)
[2022-06-22] MEDS: hydrOXYzine HCl 25 MG TAB PO PRN (21:10)
[2022-06-23] MEDS: PANTOprazole 40 MG TAB PO SCH ×2 (02:06→07:12)
[2022-06-23] MEDS: amLODIPine BESYLATE 5 MG TAB PO SCH ×2 (03:49→07:12)
[2022-06-23] MEDS: hydrALAZINE TAB 50 MG TAB PO SCH ×2 (07:10→11:20)
[2022-06-23] MEDS: ASPIRIN 81 MG CHEW PO SCH (07:11)
[2022-06-23] MEDS: PRAVASTATIN SOD 40 MG TAB PO SCH (07:11)
[2022-06-23] MEDS: carvediloL 6.25 MG TAB PO SCH (07:11)
[2022-06-23] MEDS: LOSARTAN POTASSIUM 50 MG TAB PO SCH (07:11)
[2022-06-23] MEDS: POTASSIUM CHLORIDE 10 MEQ TABCR PO SCH (07:12)
[2022-06-23] MEDS: TORSEMIDE 10 MG TAB PO SCH (07:12)
[2022-06-23] MEDS: DICLOFENAC SOD 1% GEL 100 GM TUBE EXT SCH ×2 (07:12→11:21)
--- NOTE | 2022-06-23 08:25 | Nephrology Progress Note ---
Date of Service June 23, 2022 Assessment & Plan (1) SHEA (acute kidney injury): Plan: stable/ slightly improved nonoliguric Stage 2 (came as close as she could to St age 1 w/o hitting it) acute kidney injury from contrast-induced nephropathy. She has baseline CKD with creatinine of 1.3. Admission creatinine was at baseline but increased to 2.3 the next day and peaked at 3.8 06/19, down to 3.2 today. The timing of rising creatinine correlates with IV contrast administration (she had IV con on 06/15 and on 06/16); also had OP losartan on day of IV con Patient has multiple medical problems including severe aortic stenosis and coronary artery disease. pt refused to discuss/declined HD when broached 06/18. not discussed further as no urgent need. Chemistries improved, particularly K. -daily bmp > ordered for today>> based on these labs no changes to meds -resumed OP torsemide, losartan 06/22 > also started K 10 mEq daily -encourage po intake -avoid further IV contrast Will sign off Neph d/c recs -diuretic, ARB, K as above -weekly bmp x 3 by nephro RN at d/c -hospital d/c appt w/ Dr Irving in 2-4 wks (2) Small bowel obstruction: Plan: on a low fiber diet but ? minimal po intake; per primary service Admission and Anticipated Discharge Date Admission Date: June 15, 2022 Subjective feels better; up in chair; chills/ OA pain ok; hopeing for d/c home. Review of Systems Review of Systems: All systems reviewed & are unremarkable except as noted in Subjective Physical Exam Constitutional: well developed and well nourished (sitting in chair on 02nc) Eyes: EOM intact bilaterally ENMT: Ears: no external ear abnormality Nose: no external nose abnormality Mouth: + dry oral mucous membranes Neck: no nuchal rigidity Respiratory: normal respiratory effort Auscultation: lungs clear to auscultation bilaterally, + diminished lung sounds and + rhonchi Cardiovascular: Rate/Rhythm: regular rate and regular rhythm Heart Sounds: + murmur Extremities: + edema (trace-1+) Gastrointestinal (Abdomen): Inspection/Auscultation: normal bowel sounds Percussion/Palpation: abdomen soft and + abdomen firm; abdomen nontender and abdomen not rigid Musculoskeletal: Extremities: strength 5/5 throughout Skin: no rashes, warm and dry Psychiatric: Orientation: oriented x 3 Results & Data ([facility]) Vital Signs (Past 12 Hours) Vital Signs Temp Pulse Pulse Resp BP Pulse Ox O2 Del Method 06/23/22 06:53 51 L 06/23/22 02:54 36.9 C 62 18 173/91 H 97 Nasal Cannula 06/22/22 23:48 65 06/22/22 22:17 37.0 C 62 18 163/61 H 98 Nasal Cannula 06/22/22 21:35 Nasal Cannula O2 Flow Rate 06/23/22 06:53 06/23/22 02:54 2 06/22/22 23:48 06/22/22 22:17 2 06/22/22 21:35 2 Laboratory Results 06/22/22 06:24 06/23/22 11:49
[2022-06-23] MEDS ORDERED: COUGH DROP (SUGAR FREE) LOZ 24 LOZ/1 BOX BUCCAL PRN (11:45)
--- NOTE | 2022-06-23 12:04 | Cardiology Progress Note ---
Date of Service June 23, 2022 Assessment & Plan (1) SBO (small bowel obstruction): (2) Aortic stenosis: (3) CHF (congestive heart failure): (4) ASCVD (arteriosclerotic cardiovascular disease): (5) SHEA (acute kidney injury): Plan Continue current cardiovascular medications including carvedilol, amlodipine, losartan, and torsemide. A.m. labs pending. Patient is scheduled for high risk percutaneous coronary intervention of the left main coronary artery stenosis at [facility] on July 06, 2022. Echocardiogram demonstrating stable, borderline severe aortic valve stenosis, preserved LV systolic function and a small circumferential pericardial effusion. No evidence of tamponade. Admission and Anticipated Discharge Date Admission Date: June 15, 2022 Subjective Patient seen examined the bedside. Remains fatigued, however, feeling better today. No chest pain or shortness of breath. Telemetry reveals sinus bradycardia in the 50s. Losartan and diuretic therapy restarted. A.m. labs pending. Review of Systems Review of Systems: All systems reviewed & are unremarkable except as noted in Subjective Physical Exam Constitutional: + ill appearing; no acute distress Respiratory: normal respiratory effort; no respiratory distress and no labored breathing Auscultation: no crackles (Right base), no rales, no rhonchi and no wheezes Cardiovascular: Rate/Rhythm: regular rate and regular rhythm Heart Sounds: normal S1, normal S2 and + murmur (2/6 systolic ejection murmur heard at the right second intercostal) Extremities: + edema (Mild bilateral pedal edema.) Gastrointestinal (Abdomen): Inspection/Auscultation: abdomen normal to inspection and normal bowel sounds; abdomen not distended Percussion/Palpation: abdomen nontender, no guarding and abdomen not rigid Neurologic: CN's II-XI intact bilaterally and moves all extremities Motor/Sensory: no tremor Results & Data ([facility]) Vital Signs (Past 12 Hours) Vital Signs Temp Pulse Pulse Pulse Resp BP BP 06/23/22 11:33 36.9 C 53 L 18 140/60 06/23/22 08:28 36.7 C 57 L 17 140/65 06/23/22 06:53 51 L 06/23/22 02:54 36.9 C 62 18 173/91 H Pulse Ox O2 Del Method O2 Flow Rate 06/23/22 11:33 98 Nasal Cannula 2 06/23/22 08:28 97 Nasal Cannula 2 06/23/22 06:53 06/23/22 02:54 97 Nasal Cannula 2
[2022-06-23 12:27] LABS: BUN Creatinine Ratio 26.1 (10-20); Creatinine Clr Calc Pharmacy 27.2 ml/min; Est GFR (African American) 34.9 ml/min; Est GFR (Non-African American) 30.1 ml/min; Potassium 4.2 mmol/L (3.5-5.1)
--- NOTE | 2022-06-23 16:41 | Hospitalist Progress Note ---
Date of Service June 23, 2022 delayed entry date of service noted above Assessment & Plan (1) Small bowel obstruction: Plan: per Dr. Abrams's notes with addendum: Acute SBO possibly related to scar tissue given multiple abdominal surgeries in the past vs ileus from chronic narcotic use. Patient placed on NG tube, subsequently removed General surgery consulted, conservative management recommended Patient improve gradually (+) BMs no abdominal pain, distention (2) SHEA (acute kidney injury): Plan: worsening of renal function with poor PO intake and contrast administration. crea at baseline 1.5 increased to 3.8 Improved gradually, 1.65 Usability Specialist consulted off HCO3 drip, Losartan held Usual torsemide resumed Repeat BMP on follow-up with primary care physician in 1 week (3) Coronary artery disease: Plan: Worsened cardiac disease seen during cath on 05/31/22. Plan for high risk PCI at [facility] on 07/06. Ongoing chronic anginal symptoms and dyspnea on exertion. Cardiology service consulted Continue medical management of chronic CAD (4) Bilateral leg pain: Plan: Resolved (5) Pericardial effusion: Plan: Known small pericardial effusion historically. Repeat echo performed with small circumferential pericardial effusion and no evidence of tamponade. No further workup or treatment at this time. (6) Aortic stenosis: Plan: moderate. There was consideration for TAVR, however, she is considered higher risk with poor chance for good recovery. Deferred at this time. (7) Anemia: Plan: chronic and around her baseline. Likely related to chronic disease. No overt bleeding. Cont to monitor. Hg 9/1--> 8.2 no signs of bleeding Monitor closely as an outpatient (8) DVT prophylaxis: Plan: heparin SC given Full Code Disposition PT OT recommending rehab Patient prefers to be discharged to home with home health services Explained risks involved in going home directly instead of rehab including falls, injuries Patient verbalized understanding and agreement Follow-up with PCP in 1 week Follow-up with cardiology service scheduled Admission and Anticipated Discharge Date Admission Date: June 15, 2022 Subjective Patient seen sitting up in bedside chair, comfortable, not in distress States she feels much better overall Denies abdominal pain, nausea vomiting, tolerating food well, positive BMs Denies shortness of breath, chest pain, palpitations, dizziness States she is ready and ready be discharged to home today Review of Systems Review of Systems: all noted and negative except for above Physical Exam Physical Exam: General- oriented x 3, not in distress, speaks in sentences with no effort or accessory muscle use Eyes- anicteric Neck- no JVD Lungs- clear breath sounds bilaterally, crackles, no wheezing bilaterally Heart- normal rate, regular rhythm; no murmurs Abdomen- normal bowel sounds, nondistended, soft, no tenderness Extremities- no pretibial edema, no calf tenderness Neuro- alert, oriented x 3; no gross focal neurologic deficits Skin- warm & dry Results & Data Results & Data ([facility]) Vital Signs (Past 12 Hours) Vital Signs Temp Pulse Pulse Pulse Pulse Pulse Pulse 06/23/22 16:12 36.6 C 53 L 56 L 63 06/23/22 16:06 73 68 06/23/22 15:36 60 06/23/22 15:02 36.6 C 56 L 06/23/22 11:33 36.9 C 53 L 06/23/22 08:28 36.7 C 57 L 06/23/22 06:53 51 L Pulse Resp Resp Resp Resp BP BP 06/23/22 16:12 20 129/71 140/60 06/23/22 16:06 63 16 16 16 06/23/22 15:36 06/23/22 15:02 20 129/71 06/23/22 11:33 18 140/60 06/23/22 08:28 17 140/65 06/23/22 06:53 Pulse Ox Pulse Ox Pulse Ox Pulse Ox O2 Del Method O2 Flow Rate 06/23/22 16:12 99 06/23/22 16:06 97 96 96 06/23/22 15:36 06/23/22 15:02 99 Room Air 06/23/22 11:33 98 Nasal Cannula 2 06/23/22 08:28 97 Nasal Cannula 2 06/23/22 06:53 all noted and reviewed including below
--- NOTE | 2022-06-25 18:07 | Discharge Summary ---
Discharge Summary Date of Service June 25, 2022 Notes For Next Care Provider Repeat CBC and BMP on follow-up with PCP 1 week post hospital discharge Medication Changes From Visit Potassium 10 mill equivalents p.o. daily Admission HPI Per Admitting Provider 77-year-old female presented with epigastric and left upper quadrant pain that began approximately 3 hours prior to arrival. She did present via EMS and did receive antiemetics and IV morphine which improved her symptoms. The pain is sharp and she has had some associated nausea and vomiting. She denies a history of small bowel obstruction in the past. Work-up revealed a small bowel obstruction on CT scan. Last BM was this morning and again around 1pm No abnormal stools or blood per rectum No recent changes in medications Multiple abdominal surgeries including appendectomy, cholecystectomy, hysterectomy, bilateral tubal ligation, history of umbilical hernia repair. She is on chronic oxycodone at a dose of 10 mg twice daily consistently for the past 10 years to help with arthritis pain. [place] [facility] [place]. She underwent a cardiac cath on 05/31/2022 that showed left main CAD of 60% stenosis. This is in the setting of progressive shortness of breath with most activities over the last couple of months impairing her activities of daily living. They weighed the question of whether to do a CABG versus high risk PCR than TAVR. Her symptoms are attributed to both her coronary disease and at least moderate aortic stenosis. It was felt that surgery to replace her aortic valve and cardiac bypass would be an elevated risk due to her frail state and limited mobility. Dr. Son is planning high [place] on [place] 06 [place] [facility] [place] Further interventions on her aortic valve have been deferred. Today she denies the left anterior tightness that she has been feeling over the last couple of months. Her pain is described more in the epigastric region and radiating over to the left upper abdomen and into the left anterior chest but it is sharp and severe and constant. Recent chest tightness on the left anterior chest that is provoked by exertion. She denies fevers, chills. +vomiting on the way to the ER but currently denies nausea. States pain is still severe despite morphine and fentanyl. Admission Exam Per Admitting Provider CONSTITUTIONAL: frail, elderly vitals as above, moderate distress from abdominal pain EYES: PERRL, normal conjunctivae, no scleral icterus ENT: external ear and nose normal, MMM NECK: trachea midline, RESPIRATORY: clear to auscultation bilaterally, no crackles, rales or wheezes, normal respiratory effort CARDIOVASCULAR: regular rate and rhythm, S1 and 2 heard without murmurs, gallops or rubs, no JVD, no peripheral edema, CHEST: inspection of chest was normal GASTROINTESTINAL: soft, generalized tenderness and guarding, nondistended MUSCULOSKELETAL: strength 5/5 throughout, head is normocephalic and atraumatic SKIN: warm and dry NEUROLOGIC: CN 2-12 grossly intact, no sensory deficit, normal cognition, normal speech, no tremor PSYCHIATRIC: alert cooperative and oriented to person, place and time. Euthymic mood, makes good eye contact, language grossly intact, recent and remote memory grossly intact. Principal Dx & Hospital Course #1 = Principal Diagnosis (1) Small bowel obstruction: per Dr. Abrams's notes with addendum: Acute SBO possibly related to scar tissue given multiple abdominal surgeries in the past vs ileus from chronic narcotic use. Resolved Patient placed on NG tube, subsequently removed General surgery consulted, conservative management recommended Patient improve gradually (+) BMs no abdominal pain, distention (2) SHEA (acute kidney injury): worsening of renal function with poor PO intake and contrast administration. crea at baseline 1.5 increased to 3.8 Improved gradually, 1.65 President And Chief Operating Officer consulted off HCO3 drip, Losartan held Usual torsemide resumed Repeat BMP on follow-up with primary care physician in 1 week (3) Coronary artery disease: Worsened cardiac disease seen during cath on 05/31/22. Plan [place] [facility] [place] Ongoing chronic anginal symptoms and dyspnea on exertion. Cardiology service consulted Continue medical management of chronic CAD (4) Bilateral leg pain: Resolved (5) Pericardial effusion: Known small pericardial effusion historically. Repeat echo performed with small circumferential pericardial effusion and no evidence of tamponade. No further workup or treatment at this time. (6) Aortic stenosis: moderate. There was consideration for TAVR, however, she is considered higher risk with poor chance for good recovery. Deferred at this time. (7) Anemia: chronic and around her baseline. Likely related to chronic disease. No overt bleeding. Cont to monitor. Hg 9/1--> 8.2 no signs of bleeding Monitor closely as an outpatient (8) DVT prophylaxis: heparin SC given Full Code Disposition PT OT recommending rehab Patient prefers to be discharged to home with home health services Explained risks involved in going home directly instead of rehab including falls, injuries Patient verbalized understanding and agreement Follow-up with PCP in 1 week Follow-up with cardiology service scheduled Discharge Exam General- oriented x 3, not in distress, speaks in sentences with no effort or accessory muscle use Eyes- anicteric Neck- no JVD Lungs- clear breath sounds bilaterally, crackles, no wheezing bilaterally Heart- normal rate, regular rhythm; no murmurs Abdomen- normal bowel sounds, nondistended, soft, no tenderness Extremities- no pretibial edema, no calf tenderness Neuro- alert, oriented x 3; no gross focal neurologic deficits Skin- warm & dry Updated Medication List Medication Instructions Recorded Confirmed Type amlodipine 10 mg tablet 10 mg PO QAM 07/01/19 06/15/22 History cranberry concentrate-ascorbic 4 cap PO DAILY 07/01/19 06/15/22 History acid 140 mg-100 mg capsule (Cranberry Plus Vitamin C) cyanocobalamin (vitamin B-12) 2,500 mcg PO QPM 07/01/19 06/15/22 History 2,500 mcg tablet docusate sodium 100 mg tablet 100 - 200 mg PO QPM 07/01/19 06/15/22 History (Stool Softener) hydrocodone 10 mg-acetaminophen 1 tab PO BID 07/01/19 06/15/22 History 325 mg tablet losartan 50 mg tablet 50 mg PO DAILY 07/01/19 06/15/22 History nitroglycerin 0.4 mg sublingual 0.4 mg sublingual UD PRN Angina 07/01/19 06/15/22 History tablet omeprazole 20 mg capsule,delayed 20 mg PO QAM 07/01/19 06/15/22 History release pravastatin 40 mg tablet 40 mg PO QAM 07/01/19 06/15/22 History aspirin 81 mg chewable tablet 81 mg PO DAILY 09/01/20 06/15/22 History carvedilol 6.25 mg tablet 6.25 mg PO BID #60 tabs 10/04/20 06/15/22 Rx torsemide 10 mg tablet 10 mg PO DAILY 03/23/22 06/15/22 History acetaminophen 650 mg 650 mg PO Q8H PRN Pain 06/15/22 06/15/22 History tablet,extended release ascorbic acid (vitamin C) 500 mg 500 mg PO DAILY 06/15/22 06/15/22 History tablet (Vitamin C) cholecalciferol (vitamin D3) 25 25 mcg PO DAILY 06/15/22 06/15/22 History mcg (1,000 unit) capsule (Vitamin D3) hydralazine 50 mg tablet 50 mg PO TID 06/15/22 06/15/22 History pyridoxine (vitamin B6) 50 mg 50 mg PO DAILY 06/15/22 06/15/22 History tablet (Vitamin B-6) turmeric root extract 500 mg tablet 500 mg PO DAILY 06/15/22 06/15/22 History vitamin E 670 mg (1,000 unit) 670 mg PO DAILY 06/15/22 06/15/22 History capsule potassium chloride 10 mEq 10 meq PO DAILY 30 days #30 tabs 06/23/22 Rx tablet,extended release(part/cryst) Hospital Stay Data Consultations 06/15/22 18:24 ED Decision to Admit Stat 06/15/22 20:10 Consult Cardiology Routine 06/15/22 20:36 Consult General Surgery Routine 06/18/22 07:29 Consult Nephrology Routine Diagnostic Imagining Performed Abdomen/Pelvis CT 06/15/22 15:09 CT SCAN OF THE ABDOMEN AND PELVIS WITH IV CONTRAST CLINICAL HISTORY: Epigastric and left lower quadrant abdominal pain. Nausea and vomiting. COMPARISON STUDY: Abdominal CT dated 03/01/2015. TECHNIQUE: Following the IV administration of 83 cc of Optiray 350, CT scan of the abdomen and pelvis is performed from the lung bases to the proximal femora. Images are reviewed in the axial, sagittal, and coronal planes. IV contrast was administered without complication. A dose lowering technique was utilized adhering to the principles of ALARA. The examination is degraded by streak artifact from metallic spinal hardware. CT DOSE: 374.02 mGy.cm FINDINGS: Lung bases: The heart is enlarged noting a moderate pericardial effusion. The coronary arteries and mitral annulus are densely calcified. There are trace pleural effusions with dependent atelectasis. Interlobular septal thickening in the lower lobes suggest congestive failure. There is a moderate to large hiatal hernia. Liver: The contrast-enhanced liver is normal in size, contour, and attenuation. There is mild to moderate intrahepatic biliary ductal dilatation. The hepatic veins and portal veins are patent. Gallbladder: Surgically absent noting clips in the gallbladder fossa. Spleen: Normal in size and attenuation. Pancreas: Moderately atrophic and grossly unremarkable. Adrenal glands: Unremarkable. Kidneys: The contrast enhanced kidneys demonstrate cortical atrophy and are without hydronephrosis. The kidneys enhance symmetrically. Abdominal vasculature: The abdominal aorta is normal in course and caliber noting advanced atherosclerotic calcification. There is high-grade stenosis of the left iliac artery seen on image #211. Bowel: The proximal small bowel loops are dilated and fluid-filled, measuring up to 2.7 cm diameter. A transition point is identified in the central pelvis on image #285. The distal small bowel and colon are decompressed comment appearance is consistent with a small bowel obstruction. There is trace interloop fluid. No focal or thick walled bowel loops are identified and there is no pneumatosis intestinalis or portal venous gas. There is significant rectosigmoid fecal retention. The appendix is not identified and reported surgically absent. Peritoneum: There is trace perihepatic ascites, as well as trace free fluid in the pelvis. No intraperitoneal free air is identified. Lymphadenopathy: None. Pelvic viscera: The bladder is normal as visualized. The uterus is surgically absent. No adnexal lesion is seen. Skeletal structures: The skeletal structures are osteopenic. There is advanced lumbosacral spondylosis with evidence of multilevel lumbar spinal fusion. There is also scoliosis. No lytic or blastic lesions are seen. Arthritic change is seen in the hips. IMPRESSION: 1. Small bowel obstruction. A transition point is identified in the central pelvis, and this is likely on the basis of adhesions. 2. There is trace interloop fluid. No focally thick-walled bowel are identified. There is no intraperitoneal free air, pneumatosis intestinalis, or portal venous gas. 3. Cardiomegaly with evidence of congestive failure. 4. Trace pleural effusions. 5. A pericardial effusion is new from 2015. 6. Moderate to large hiatal hernia. 7. Additional findings as above. ACT 112: Negative or not required by law. Electronically signed by: Bernabe Pressley M.D. 06/15/2022 5:53 PM Chest CTA 06/16/22 13:55 CT angio chest dissec wo/w con CLINICAL HISTORY: severe chest pain radiating to back TECHNIQUE: Multidetector row helical CT of the chest was performed before and after injection of IV contrast. Coronal and sagittal reformations were obtained. Automated dose lowering techniques and/or adjustment according to patient size were utilized for this exam. CT DOSE: 1049.11 mGy.cm Comparison: Comparison is made to CT abdomen pelvis 08/15/2021 FINDINGS: Lungs and pleura: Trace bilateral pleural effusions are seen. There is ass ociated atelectasis. Bronchial wall thickening is noted. No suspicious pulmonary nodules are seen. Heart and pericardium: Mitral annular calcifications are seen. Aortic valvular calcifications are seen. Biatrial enlargement is seen. Vessels: No aortic dissection or intramural hematoma is seen. Pulmonary hypertension is noted. Mediastinum and margaret: Prominent mediastinal lymph nodes measure up to 11 mm. Chest wall and lower neck: Small thyroid nodules are noted which do not require follow-up by ACR criteria. Abdomen: A moderate to large hiatal hernia is seen. Bones: Degenerative changes in the thoracic spine. IMPRESSION: 1. No acute abnormality and in particular no evidence of acute aortic injury. Pulmonary hypertension is seen. 2. Trace bilateral pleural effusions and associated atelectasis are seen. ACT 112: Negative or not required by law. Electronically signed by: Hieu Bucio M.D. 06/16/2022 3:38 PM Venous Doppler Study 06/18/22 09:15 BILATERAL LOWER EXTREMITY VENOUS DOPPLER HISTORY: Acute pain and swelling of the lower legs acute bilat leg pain COMPARISON STUDY: Doppler study 09/30/2020 FINDINGS: There is normal compressibility, flow, and augmentation within the bilateral lower extremity deep venous systems. Mild subcutaneous edema. IMPRESSION: No DVT within the right or left lower extremity. ACT 112: Negative or not required by law. Electronically signed by: Dave Lagunas M.D. 06/18/2022 10:34 AM KUB X-Ray 06/19/22 07:00 KUB HISTORY: Follow up study in a patient with small bowel obstruction SBO COMPARISON: KUB 06/17/2022 FINDINGS: Cholecystectomy.. Hiatal hernia. The distal tip of enteric tube projects over the abdominal right upper quadrant, likely within the duodenum. There is decreased small bowel distention compared to the prior study. Contrast noted within the urinary bladder lumen. No renal calculi. No ureteral calculi. No pneumoperitoneum or pneumatosis. Degenerative changes of the spine, pelvis and hips. Lumbar levoscoliosis with posterior interbody carole and screw fusion hardware. No fracture. IMPRESSION: Decreased small bowel distention from the prior study suggestive of resolving small bowel obstruction. ACT 112: Negative or not required by law. The above report was generated using voice recognition software. It may contain grammatical, syntax or spelling errors. Electronically signed by: Dave Lagunas M.D. 06/19/2022 10:01 AM Pending Results Patient Have Any Pending Studies at Discharge: No Discharge Instructions Given to Patient (Per Discharging Provider) PLEASE REFER TO YOUR NEW MEDICATION LIST AND FOLLOW INSTRUCTIONS CAREFULLY. YOUR NEW MEDICATIONS INCLUDE: POTASSIUM SUPPLEMENT LOW FIBER, EASY TO CHEW DIET FOR 2-3 DAYS, THEN ADVANCE DIET SLOWLY TOLERATED. PLEASE CALL YOUR PRIMARY CARE PHYSICIAN OR RETURN TO THE ER IF WITH WORSENING OF SYMPTOMS, INCLUDING abdominal pain , nausea/vomiting, weakness, chest pain, shortness of breath, palpitations, diziness, etc FOLLOW UP WITH PRIMARY CARE PHYSICIAN DR. CAMARA OUTLINED ABOVE. FOLLOW UP WITH KIDNEY SPECIALIST DR. JOHNSON OUTLINED ABOVE. FOLLOW UP WITH BLOCK TRADER SCHEDULED. Call your Primary Care doctor if any of the following symptoms or problems start or get worse: Shortness of breath or difficulty breathing Wake up at night short of breath Chest pain Cough Swelling of your hands, feet, or legs More fatigued or tired with your normal activity Palpitations - sudden fast heart beats WEIGHT Weigh yourself every morning after using the bathroom. Use the same scale. Wear the same amount of clothing. Write your weight down on a chart. Call your Primary Care doctor if you gain more than 2-3 pounds in 1-2 days. MEDICATIONS Use this discharge instruction sheet for medication instructions. Take your medications at the time your doctor ordered. Do not skip a dose of your medicines. If you miss a dose of medicine, take it as soon as possible, but DO NOT DOUBLE A DOSE. Read your medicine information when you get home. Know all of the side effects of your medicine. If in doubt, ask your pharmacist Call your Primary Care doctor's office if you have any side effects. Be sure all of your doctors know what medicine and herbs you take (including cold, flu, and herbal medicine). Take the following with you to your follow-up doctor appointments: Weight Chart Medication List List of questions Do not drink excessive alcohol, beer or wine. Who to Call and When: Call 911 or go to the Emergency Room if: If at any time you feel your situation is an emergency You have tightness or pain in your chest that does not go away with rest or Nitroglycerin You are very short of breath even with rest Total Time Total Time Spent Total Time Spent (In Minutes): >30 minutes
== END 2022-06-23 16:52 | disposition home health service (06) | DRG 388 ==
LOC: ED 14:42 → SUATTDRO 18:34 → 2N 18:34

== ENCOUNTER 2023-10-07 14:25 | Inpatient (IN) ==
--- OUTSIDE RECORDS SUMMARY | 2023-10-07 14:32 | External Medical Summary | Summary of Care ---
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 ENGINEER DEVELOPER USE ONLY) [facility] [place] [place], Cardiac Recovery Suite, [facility] [address] [place] [address] Mindi Dent, RN Allergies Active Allergy Reactions Criticality Noted Date Comments Ramipril Unknown Low 01/08/2014 Gabapentin Edema Other Medium 03/30/2011 Attempted x 3 with resultant fatigue and peripheral edema Oxycodone 06/09/2019 Makes me go crazy documented as of this encounter (statuses as of 10/04/2023) Medications Medication Sig Dispensed Refills Start Date End Date Status STOOL SOFTENER 100 MG PO TABS 1-2 tabs twice daily for constipation 0 07/11/2013 Active CRANBERRY PLUS VITAMIN C 140-100-3 MG-MG-UNIT PO CAPS four tablets by mouth daily 0 Active Cyanocobalamin (B-12) 1000 MCG CapsuleIndications:B 12 deficiency Take 1 Capsule by mouth in the morning. 0 11/13/2018 Active Ascorbic Acid (VITAMIN C) 1000 MG Tablet Take 0.5 Tablets by mouth in the morning. 0 Active Aspirin 81 MG Tablet Take 1 Tablet by mouth in the morning. 0 Active Nitroglycerin 0.3 MG Sublingual Tablet Sublingual (NITROSTAT) Place 1 Tablet under the tongue every 5 minutes as needed for Pain, Chest. up to 3 doses in 15 minutes. 100 Tab 11 04/14/2020 Active Vitamin B6 50 MG Oral Tablet Take by mouth . Unsure dosage 0 Active Acetaminophen ER 650 MG Oral Tablet Extended Release Take 1 Tablet by mouth every 8 hours as needed. 0 Active Vitamin E 450 MG Oral Capsule Take by mouth 1 Capsule daily . 675 ug 0 Active Vitamin D 25 MCG (1000 UT) Oral Tablet Take 1 Tablet by mouth in the morning. 0 Active Losartan Potassium 50 MG Oral Tablet (Cozaar)Indications: Chronic kidney disease, stage 3b (HCC) Take 1 Tablet (50 mg) by mouth in the morning. 180 Tablet 1 06/30/2022 Active Torsemide 10 MG Oral Tablet (Demadex)Indications :Essential hypertension with goal blood pressure less than 140/90 TAKE 1 TABLET BY MOUTH ONCE DAILY IN THE MORNING MAY TAKE 1 EXTRA TORSEMIDE IF WEIGHT GAIN OF 3-4 LBS OVERNIGHT 120 Tablet 3 11/20/2022 Active Additional Information Patient taking differently: 20 mg MWF, 10 mg all other days, Reported on 09/14/2023 amLODIPine Besylate 5 MG Oral Tablet (Norvasc)Indications :Essential hypertension with goal blood pressure less than 140/90 Take 1 Tablet by mouth in the morning. 90 Tablet 1 03/06/2023 Active Atorvastatin Calcium 20 MG Oral Tablet (Lipitor)Indications :Hyperlipidemia with target LDL less than 70 Take 1 Tablet by mouth in the morning. 90 Tablet 1 03/06/2023 Active Omeprazole 20 MG Oral Capsule Delayed Release (PriLOSEC) Take 1 Capsule by mouth in the morning. 90 Capsule 0 08/02/2023 Active Carvedilol 6.25 MG Oral Tablet (Coreg) Take 1 Tablet by mouth in the morning and 1 Tablet before bedtime. 180 Tablet 3 08/08/2023 Active Spironolactone 25 MG Oral Tablet (Aldactone) Take 0.5 Tablets by mouth in the morning. 30 Tablet 5 09/18/2023 Active HYDROcodone-Acetamin ophen 10-325 MG Oral TabletIndications:Ge neralized osteoarthritis,Degen eration of lumbosacral intervertebral disc Take 1 Tablet by mouth 2 times a day as needed for Pain, Severe. 60 Tablet 0 09/27/2023 Active hydrALAZINE HCl 50 MG Oral Tablet (Apresoline)Indicati ons:Essential hypertension with goal blood pressure less than 140/90 Take 1 Tablet by mouth in the morning and 1 Tablet at noon and 1 Tablet before bedtime. 270 Tablet 3 09/26/2023 Active Isosorbide Mononitrate ER 30 MG Oral Tablet Extended Release 24 Hour (Imdur)Indications:A ortic valve stenosis, etiology of cardiac valve disease unspecified,Mitral valve disease,Coronary artery disease involving [place] coronary artery of [place] heart without angina pectoris,S/P primary angioplasty with coronary stent,Chronic heart failure with preserved ejection fraction (HCC),HTN, goal below 140/90,Dyslipidemia, goal LDL below 70 Take 1 Tablet by mouth in the morning. 90 Tablet 3 09/28/2023 Active documented as of this encounter (statuses as of 10/04/2023) Active Problems Problem Noted Date Diagnosed Date S/P primary angioplasty with coronary stent 11/2022 Encounter for long-term (current) use of medicat ions 05/23/2022 Chronic diastolic heart failure 04/10/2022 Chronic kidney disease, stage 3b 11/30/2020 Overview: Per CKD protocol Thyroid nodule 10/08/2020 Chronic sialoadenitis 09/09/2020 Overview: Follows with Dr. Reyes. Treated periodically with antibiotics. Hypertensive kidney disease with stage 3b chronic kidney disease 05/31/2020 Overview: Per CKD protocol Dysphagia 01/29/2020 COPD with emphysema 05/23/2019 B12 deficiency 11/13/2018 Other proteinuria 11/12/2018 History of colon polyps 11/04/2018 Overview: Tubular adenoma Kyphosis 10/25/2018 Vaginal atrophy 04/22/2018 COPD, mild 03/22/2018 Carotid stenosis, non-symptomatic, bilateral MEDICATION USE AGREEMENT 06/27/2017 Drug-induced constipation 11/27/2016 Essential hypertension with goal blood pressure less than 140/90 04/17/2016 Cervical spinal stenosis 04/17/2016 Lumbar degenerative disc disease 06/29/2015 Lumbar spinal stenosis 06/29/2015 Gastroesophageal reflux disease without esophagi tis 06/29/2015 Iron deficiency anemia 03/15/2015 PAD (peripheral artery disease) 03/03/2015 Degenerative disc disease, cervical 02/02/2015 Severe aortic stenosis by prior echocardiogram 0 10/01/2013 Coronary artery disease invo lving [place] coronary artery of [place] heart without angina pectoris 05/20/2013 Hyperlipidemia with target LDL less than 70 08/23 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 02/28/2012 GENERAL OSTEOARTHROSIS Hiatal hernia documented as of this encounter (statuses as of 10/04/2023) Resolved Problems Problem Noted Date Diagnosed Date Resolved Date Hypertensive kidney disease with chronic kidney disease stage III 11/04/2018 06/03/2020 Overview: Per CKD protocol Carpal tunnel syndrome of left wrist 11/11/2015 09/18/2017 Tubular adenoma of colon 04/14/2015 Benign esophageal stricture 03/15/2015 09/18/2017 MEDICATION USE AGREEMENT 08/21/2014 Overview: Signed 08/21/2014 Nazanin Mayfield MD [facility] as backup Anemia 10/01/2013 04/08/2015 COPD, mild 03/31/2013 02/25/2015 Kidney disease, chronic, sta ge III (GFR 30-59 ml/min) 03/31/2013 12/04/2018 Inflammation of sacroiliac joint 09/15/2011 01/14/2015 Sacroiliac joint disease 09/15/2011 Vitamin D deficiency 05/24/2011 018 LUMBOSACRAL NEURITIS NOS 03/08/2011 MYALGIA AND MYOSITIS NOS 01/05/201112/2014 OCCIPITAL NEURALGIA 01/05/2011 02/26/20 15 Lumbago 11/21/2010 01/14/2015 Osteoporosis 05/13/2010 10/18/2012 Cervicalgia 05/12/2010 01/14/2015 HTN, goal below 140/90 04/18/201004/17 Kidney disease, chronic, sta ge III (GFR 30-59 ml/min) 02/10/2010 12/07/2011 Overview: Per CKD Protocol, #1 HTN, goal to be determined 12/17/2009 1 Benign neoplasm of colon 06/08/200802/2018 Overview: hyperplastic polyp--repeat 10 years COPD, severity to be determined 02/24/2008 03/31/2013 ADVANCE DIRECTIVE INFORMATION 05/22/2005 09/18/2017 Overview: No, Advance Directive brochure given to patient at prior appointment. NONALLERGIC RHINITIS 04/29/2004 018 Dyspnea and respiratory abnormality 04/29/2004 02/25/2015 Overview: ICD-10 update of inactive term Arthritis, rheumatoid 04/12/20042004 AORTIC VALVE SCLEROSIS 02/19/200410/07 Reflux esophagitis 08/21/2003 9 Overview: Resolved per Duplicate Protocol #2. Dermatophytosis of nail 12/02/200212/2014 Reflux esophagitis 5 Irritable bowel syndrome Precordial pain 01/14/2015 Carpal tunnel syndrome 02/25 Other chronic sinusitis 12/2014 LUMB-LUMBOSAC DISC DEGEN RHEUMATIC HEART DIS NOS 08/24 Tension headache 02/25/2015 Cervical spondylosis 015 Other chest pain 01/14/2015 Overview: non cardiac Mitral valve prolapse 2013 Pulmonary hypertension 09/18 Pulmonary hypertension 11/17 Overview: artery Edema 02/25/2015 Overview: chronic BLE edema Rheumatic fever 01/14/2015 Overview: as a child Diaphragmatic hernia 015 Umbilical hernia 02/25/2015 Diverticulosis 01/14/2015 Periumbilical hernia 015 documented as of this encounter (statuses as of 10/04/2023) Immunizations Name Administration Dates Next Due COVID-19 mRNA, LNP-s, No Pre serve, 2-Dose Series (Simphatic) 11/20/2020,10/26/2020 Pneumococcal Conjugate Vacc, 13 Valent (Prevnar) 01/16/2017 Pneumococcal Polysaccharide PPV23 (Pneumovax) 04/01/2008 Season Influenza, Quad, PF, Adjuvanted, 65+ Yrs, IM (FLUAD) 05/18/2020 Seasonal Influenza, PF, 6 M & above, IM , (FluLaval or Fluzone) 05/24/2018,05/28/2017 Seasonal Influenza, Quadriva lent Hd (Fluzone Hd) 04/16/2023,05/23/2022,05/13/2021 Seasonal Influenza, Quadriva lent, No Preserve, IM 04/10/2016,05/13/2015 Seasonal Influenza, Split, I IV3, With Preserve, Inj 03/31/2014,04/08/2013,04/04/2012,05/24,04/29/2010,05/17/2009,06/02/2006 Seasonal Influenza, Trivalen t, Adjuvanted, 65+ yrs 05/23/2019 TD - Tetanus/Diptheria (ADULT) 07/23/1986 TD, Preservative Free 03/05/2009 TDAP (age 10 and older)(Boostrix) 11/15/2018 documented as of this encounter Social History Tobacco Use Types Packs/Day Years Used Date Smoking Tobacco: Former Cigarettes 3 30 0 10/24/1946 - 10/24/1976 Smokeless Tobacco: Never Comments:quit 1988 Alcohol Use Standard Drinks/Week Comments No 0 (1 standard drink = 0.6 oz pur e alcohol) rarely PHQ-2 Answer Date Recorded PHQ Adult Total Score 2 01/20/2021 Hunger Vital Sign Answer Date Recorded Worried About Running Out of Food in the Last Ye ar Never true 10/29/2019 Ran Out of Food in the Last Year Never true 10/29/2019 Sex and Gender Information Value Date Recorded Sex Assigned at Female 01/20/2021 12:43 PM EDT Gender Identity Female 01/20/2021 12:43 PM EDT Sexual Orientation Straight 01/20/2021 12 :43 PM EDT Job Start Date Occupation Industry Not on file Not on file Not on file documented as of this encounter Functional Status Functional Status Response Date of Assess ment Are you deaf or do you have serious difficulty h earing? No 07/27/2022 Are you blind or do you have serious difficulty seeing, even when wearing glasses? No 07/27/2022 Do you have serious difficul ty walking or climbing stairs? (5 years old or older) Yes 07/27/2022 Do you have difficulty dress ing or bathing? (5 years old or older) No 07/27/2022 Because of a physical, menta l, or emotional condition, do you have difficulty doing errands alone such as visiting a doctor s office or shopping? (15 years old or older) No 07/27/19 23 Cognitive Status Response Date of Assessm ent Because of a physical, menta l, or emotional condition, do you have serious difficulty concentrating, remembering, or making decisions? (5 years old or older) No 07/27/2022 documented as of this encounter Progress Notes * Alee Sierra DNP - 10/04/2023 6:32 PM EDT Does patient need to be seen?: Yes Modality: Office visit Urgency: Within 10 days (routine) Discussed care plan with patient or proxy?: Yes per valve team Communicated with patient on Date (mm/dd/yyyy): 10/01/2023 at Time ([facility]): [address] Alee Sierra D[place] [address] [facility] * Mindi Dent RN - 10/01/2023 2:33 PM EDT New Patient Triage What is the diagnosis/reason for referral?: Aortic Stenosis Enter order ID here: [id number] Specialty specific documentation: Cardiology Structural Heart Please see multidisciplinary follow up note [facility] Interventional Valve Nurse Navigator documented in this encounter Plan of Treatment Upcoming Encounters Date Type Department Care Team (Late st Contact Info) Description 10/19/2023 10:30 AM EDT Office Visit Cardiology, [facility] [address] [place] [address] Pricilla Morse CRNP [address] [facility] [place] [address] 12/13/2023 2:30 PM EDT Cardiac Studies [facility] [place] [address] 12/19/2023 1:30 PM EDT Office Visit Cardiology, [facility] [address] [facility] [place] [address] Shyam Son MD [address] [place] [facility] [place] [address] 04/23/2024 3:10 PM EDT Office Visit Family Medicine [address] [place] [phone] [place] [address] Scheduled Orders Name Type Priority Associated Diagnoses Orde r Schedule EKG EKG Routine Aortic stenosis Expected: 01/01/2024 (Approximate), Expi res: 09/30/2024 Health Maintenance Due Date Last Done Comments Alpha-1 Antitrypsin 1961 Zoster Vaccines (1 of 2) 1993 DXA Scan 12/04/2020 12/04/2017, 07/24, 07/21/2010, Additional history exists Depression Screening 01/20/2022 01/20/2021 COVID-19 Vaccine ( season) 2023 11/20/2020, 10/26/2020 Chawla's Esophagus Surveilance 04/09/2023 04/09/2020, 07/07/2019, 04/10/2012, Additional history exists *NEPHROLOGY REFERRAL DUE TO RESISTANT HTN 09/16/2023 CKD PHOS USE SMARTSET 27901 11/23/2023 05/0 09/2022, 11/18/2021, 11/02/2020, Additional history exists Albumin/Creatinine Ratio 03/06/2024 023, 05/23/2022, 08/15/2021, Additional history exists GFR 03/23/2024 09/21/2023, 02/09/2023, 04/13/2023, Additional history exists CKD HGB USE SMARTSET 58777 09/14/202409/14, 03/06/2023, 03/06/2023, Additional history exists O2 ASSESSMENT COMPLETED IN PAST YEAR FOR COPD 09/14/2024 09/14/2023 DTaP,Tdap,and Td Vaccines (2 - Td or Tdap) 11/15/2028 11/15/2018, 03/05/2009, 07/23/1986 Pneumococcal Vaccine: 65+ Years Completed 01/16/2017, 04/01/2008 Influenza Vaccine (FLU shot) Completed , 05/23/2022, 05/13/2021, Additional history exists GARDASIL-HPV IMMUNIZATION SERIES Aged Out No longer eligible based on patient's age to complete this topic Hepatitis B Aged Out No longer eligi ble based on patient's age to complete this topic MENINGOCOCCAL (MENACTRA/MENVEO) Aged Out No longer eligible based on patient's age to complete this topic documented as of this encounter Medical Devices Implanted Type Area Electrical Journeyman Device Identifier Shelf Expiration Date Model / Serial / Lot Cath Thermodilution 6fr - [id number] Implanted:Qty: 1 on 05/31/2022 by Yoli Rocha MD at [facility] [place] [place] [employer] [id number] 01/30/2024 [id number] / / [id number] Stent Synergy Xd Mr [id number] - [id number] Implanted:Qty: 1 on 07/27/2022 by Yoli Rocha MD at [facility] [place] [place] [employer] 11/08/2023 [id number] / / [id number] documented as of this encounter Visit Diagnoses Diagnosis Aortic stenosis- Primary Aortic valve disorders documented in this encounter Advance Directives Latest Code Status on File Code Status Date Activated Date Inactivated Comments Full Code 07/27/2022 12:56 PM 07/28/2022 1:52 PM This o rder reflects the patients wishes and were consensually agreed upon. Question Answer Comments Discussion of Advance Directives occurred with: Not Discussed due to patient's condition Care Teams Qa Software Tester Relationship Specialty Start Date End Date Jazzy Appiah DO [address] [place] [address] [place] [id number] PCP - General Internal Medicine 03/12/17 documented as of this encounter
--- OUTSIDE RECORDS SUMMARY | 2023-10-07 14:33 | External Medical Summary | Summary of Care ---
Author Name Unknown Organization [facility] Address [address] [place] [address] Phone [phone] Care Team Providers Care Aligning Inspector Name Role Phone Jazzy Appiah DO Primary Care Provider + [phone] Reason for Referral * Medication Prior Authorization - Closed Specialty Diagnoses / Procedures Referred By Viv apodaca Referred To Contact Diagnoses Generalized osteoarthritis Degeneration of lumbosacral intervertebral disc Carmita Gregory MD [address] [place] [address] [place] [id number] Referral ID Status Reason Start Date Expiration Date Visits Re quested Visits Authorized [id number] Closed 999 999 Reason for Visit * Reason Onset Date Comments Medication Refill 09/26/2023 Encounter Details Date Type Department Care Team (Late st Contact Info) Description 09/26/2023 Refill Family Medicine [address] [place] [id number] Jazzy Appiah DO [address] [place] [address] [place] [phone] GENERAL OSTEOARTHROSIS; LUMB-LUMBOSAC DISC DEGEN; Essential hypertension with goal blood pressure less than 140/90 Allergies Active Allergy Reactions Criticality Noted Date Comments Ramipril Unknown Low 01/08/2014 Gabapentin Edema Other Medium 03/30/2011 Attempted x 3 with resultant fatigue and peripheral edema Oxycodone 06/09/2019 Makes me go crazy documented as of this encounter (statuses as of 09/27/2023) Medications Medication Sig Dispensed Refills Start Date End Date Status STOOL SOFTENER 100 MG PO TABS 1-2 tabs twice daily for constipation 0 07/11/2013 Active CRANBERRY PLUS VITAMIN C 140-100-3 MG-MG-UNIT PO CAPS four tablets by mouth daily 0 Active Cyanocobalamin (B-12) 1000 MCG CapsuleIndications: B12 deficiency Take 1 Capsule by mouth in [...] Active Losartan Potassium 50 MG Oral Tablet (Cozaar)Indications :Chronic kidney disease, stage 3b (HCC) Take 1 Tablet (50 mg) by mouth in the morning. 180 Tablet 1 06/30/2022 Active Torsemide 10 MG Oral Tablet (Demadex)Indication s:Essential hypertension with goal blood pressure less than 140/90 TAKE 1 TABLET BY MOUTH ONCE DAILY IN THE MORNING MAY TAKE 1 EXTRA TORSEMIDE IF WEIGHT GAIN OF 3-4 LBS OVERNIGHT 120 Tablet 3 11/20/2022 Active Additional Information Patient taking differently: 20 mg MWF, 10 mg all other days, Reported on 09/14/2023 amLODIPine Besylate 5 MG Oral Tablet (Norvasc)Indication s:Essential hypertension with goal blood pressure less than 140/90 Take 1 Tablet by mouth in the morning. 90 Tablet 1 03/06/2023 Active Atorvastatin Calcium 20 MG Oral Tablet (Lipitor)Indication s:Hyperlipidemia with target LDL less than 70 Take [...] the morning. 30 Tablet 5 09/18/2023 Active HYDROcodone-Acetami nophen 10-325 MG Oral TabletIndications:G eneralized osteoarthritis,Dege neration of lumbosacral intervertebral disc Take 1 Tablet by mouth 2 times a day as needed for Pain, Severe. 60 Tablet 0 09/27/2023 Active hydrALAZINE HCl 50 MG Oral Tablet (Apresoline)Indicat ions:Essential hypertension with goal blood pressure less than 140/90 Take 1 Tablet by mouth in the morning and 1 Tablet at noon and 1 Tablet before bedtime. 270 Tablet 3 09/26/2023 Active HYDROcodone-Acetami nophen 10-325 MG Oral TabletIndications:G eneralized osteoarthritis,Dege neration of lumbosacral intervertebral disc Take 1 Tablet by mouth 2 times a day as needed for Pain, Severe. 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 05/20/2013 Hyperlipidemia with target LDL less than 70 08/23 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 02/28/2012 GENERAL OSTEOARTHROSIS Hiatal hernia documented as of this encounter (statuses as of 09/27/2023) Resolved Problems Problem Noted Date Diagnosed Date Resolved Date Hypertensive kidney disease with chronic kidney disease stage III 11/04/2018 06/03/2020 Overview: Per CKD protocol Carpal tunnel syndrome of left wrist 11/11/2015 09/18/2017 Tubular adenoma of colon 04/14/2015 Benign esophageal stricture 03/15/2015 09/18/2017 MEDICATION USE AGREEMENT 08/21/2014 Overview: Signed 08/21/2014 Nazanin Mayfield MD [facility] as backup Anemia 10/01/2013 04/08/2015 COPD, mild [...] as of this encounter (statuses as of 09/27/2023) Immunizations Name Administration Dates Next Due COVID-19 mRNA, LNP-s, No Pre serve, 2-Dose Series (Pfizer) 11/20/2020,10/26/2020 Pneumococcal Conjugate Vacc, 13 Valent (Prevnar) [...] Influenza, Trivalen t, Adjuvanted, 65+ yrs 05/23/2019 TD, Preservative Free 03/05/2009 TDAP (age 10 [...] (15 years old or older) No 07/27/19 Cognitive Status Response Date of Assessm ent Because of a physical, menta l, or emotional condition, do you have serious difficulty concentrating, remembering, or making decisions? (5 years old or older) No 07/27/2022 documented as of this encounter Miscellaneous Notes * Telephone Encounter - Carmita Gregory MD - 09/27/2023 2:39 PM EST Signed Prescriptions: Disp Refills HYDROcodone-Acetaminophen 10-325 MG Oral T*60 Tab*0 Sig: Take 1 Tablet by mouth 2 times a day as needed for Pain, Severe. Authorizing Provider: CARMITA GREGORY * Telephone Encounter - Trenton Contreras [facility] - 09/27/2023 12:57 PM EST Pending Prescriptions: Disp Refills HYDROcodone-Acetaminophen 10-325 MG Oral T*60 Tab*0 Sig: Take 1 Tablet by mouth 2 times a day as needed for Pain, Severe. * Telephone Encounter - Trenton Contreras [facility] - 09/27/2023 12:56 PM EST I have reviewed the patients controlled substance dispensing history in the Prescription Drug Monitoring Program in compliance with the [facility] regulations before prescribing a controlled substance. PDMP checked on 09/27/2023. Pending Prescriptions: Disp Refills HYDROcodone-Acetaminophen 10-325 MG Oral *60 Tab*0 Sig: Take 1 Tablet by mouth 2 times a day as needed for Pain, Severe. Last Visit: 09/14/2023 (in office), Visit date not found (telemedicine) Next Visit: 04/23/2024 Date medication was last filled: 08/27 Date medication is due for refill: 09/24 Pharmacy: [facility], [address] [place] Is this request for a controlled substance? Yes and Urine Drug Screen was completed Toxicology results: Results for orders placed or performed in visit on 11/22/22 PAIN MANAGEMENT DRUG PANEL, URINE W/ INTERPRETATION Result Value Compliance Interpretation Based on the medication information provided: The presence of hydrocodone, dihydrocodeine and hydromorphone is CONSISTENT with hydrocodone use. Amphetamines Screen, U Negative Benzodiazepines Screen, U Negative Cannabinoids Screen, U Negative Cocaine Metabolite Screen, U Negative Fentanyl Screen, U Negative Hydrocodone Screen, U Refer to confirmation results (A) Methadone Metabolite Screen, U Negative Morphine/Codeine Screen, U Refer to confirmation results (A) Oxycodone Screen, U Refer to confirmation results (A) Valid Interpretation Normal Creatinine, U 38 Narrative Cutoff Concentrations: Drug Level Amphetamines 500 ng/mL Benzodiazepines 100 ng/mL Cannabinoids 50 ng/mL Cocaine Metabolite 150 ng/mL Fentanyl 1 ng/mL Hydrocodone / Hydromorphone 300 ng/mL Methadone Metabolite 100 ng/mL Morphine / Codeine 300 ng/mL Oxycodone / Oxymorphone 100 ng/mL Screening results are presumptive and can only be used for medical purposes. Confirmatory testing is available upon request. *Note: Due to a large number of results and/or encounters for the requested time period, some results have not been displayed. A complete set of results can be found in Results Review. Please approve if appropriate. Thanks, Trenton Contreras PharmD Clinical Pharmacist [facility](formerly telepharmacy) [phone] 09/27/2023, 12:56 PM * Telephone Encounter - Paulina Sherwood PHARM Tech - 09/26/2023 11:22 AM EST Did you pend patient's preferred pharmacy and medication before forwarding?yes Pharmacy: [facility], [address] [place] Pending Prescriptions: Disp Refills HYDROcodone-Acetaminophen 10-325 MG Oral *60 Tab*0 Sig: Take 1 Tablet by mouth 2 times a day as needed for Pain, Severe. Last Visit: 09/14/2023 (in office), Visit date not found (telemedicine) Next Visit: 04/23/2024 If no future appointments scheduled, and last appointment is greater than a year ago, please schedule patient for a follow-up appointment Last date the medication was ordered: 08/27/23 Is this request for a controlled substance?Yes, What was the last refill date 08/27/23 w/ quantity 60and dosage 10-325 mg and Urine Drug Screen was completed Urine Drug Screen: Results for orders placed or performed in visit on 11/22/22 PAIN MANAGEMENT DRUG PANEL, URINE W/ INTERPRETATION Result Value Compliance Interpretation Based on the medication information provided: The presence of hydrocodone, dihydrocodeine and hydromorphone is CONSISTENT with hydrocodone use. Amphetamines Screen, U Negative Benzodiazepines Screen, U Negative Cannabinoids Screen, U Negative Cocaine Metabolite Screen, U Negative Fentanyl Screen, U Negative Hydrocodone Screen, U Refer to confirmation results (A) Methadone Metabolite Screen, U Negative Morphine/Codeine Screen, U Refer to confirmation results (A) Oxycodone Screen, U Refer to confirmation results (A) Valid Interpretation Normal Creatinine, U 38 Narrative Cutoff Concentrations: Drug Level Amphetamines 500 ng/mL Benzodiazepines 100 ng/mL Cannabinoids 50 ng/mL Cocaine Metabolite 150 ng/mL Fentanyl 1 ng/mL Hydrocodone / Hydromorphone 300 ng/mL Methadone Metabolite 100 ng/mL Morphine / Codeine 300 ng/mL Oxycodone / Oxymorphone 100 ng/mL Screening results are presumptive and can only be used for medical purposes. Confirmatory testing is available upon request. *Note: Due to a large number of results and/or encounters for the requested time period, some results have not been displayed. A complete set of results can be found in Results Review. Patient Phone Numbers Labs: Lab Results Component Value Date/Time CREAT 2.0 (H) 09/21/2023 12:52 PM CREAT 1.2 (H) 05/18/2020 11:22 AM POTASSIUM 4.8 09/21/2023 12:52 PM POTASSIUM 4.5 05/31/2022 11:17 AM POTASSIUM 4.5 05/18/2020 11:22 AM TSH 1.98 09/14/2023 11:22 AM TSH 2.19 03/19/2015 09:40 AM LDLCALC 64 09/14/2023 11:22 AM LDLCALC 80 01/29/2020 10:47 AM LDLDIRECT NOT APPLICABLE 01/29/2020 10:47 AM LDLDIRECT 98 02/08/2009 08:34 AM ALT 14 09/14/2023 11:22 AM ALT 13 01/29/2020 10:47 AM HGBA1C 5.4 07/27/2022 10:55 AM HGBA1C 5.5 02/08/2009 08:34 AM documented in this encounter Plan of Treatment Upcoming Encounters Date Type Department Care Team (Late st Contact Info) Description 09/28/2023 3:30 PM EST Office Visit Cardiology, [facility] [address] [place] [phone] Pricilla Morse CRNP [address] [place] [id number] 04/23/2024 3:10 PM EDT Office Visit Family Medicine [address] [place] [phone] [address] [place] [phone] Health Maintenance Due Date Last Done Comments Alpha-1 Antitrypsin 1961 Zoster Vaccines (1 of 2) 1993 DXA Scan 12/04/2020 12/04/2017, 07/24, 07/21/2010, Additional history exists Depression Screening 01/20/2022 01/20/2021 COVID-19 Vaccine ( season) 2023 11/20/2020, 10/26/2020 Chawla's Esophagus Surveilance 04/09/2023 04/09/2020, 07/07/2019, 04/10/2012, Additional history exists *NEPHROLOGY REFERRAL DUE TO RESISTANT HTN 09/16/2023 CKD PHOS USE SMARTSET 54187 11/23/2023 05/0 09/2022, 11/18/2021, 11/02/2020, Additional history exists Albumin/Creatinine Ratio 03/06/2024 023, 05/23/2022, 08/15/2021, Additional history exists GFR 03/23/2024 09/21/2023, 08/24, 04/13/2023, Additional history exists CKD HGB USE SMARTSET 38187 09/14/202409/14, 03/06/2023, 03/06/2023, Additional history exists O2 [...] this encounter Medical Devices Implanted Type Area Automotive Project Engineer Device Identifier Shelf Expiration Date Model / Serial / Lot Cath Thermodilution 6fr - [id number] Implanted:Qty: 1 on 05/31/2022 by Yoli Rocha [place] [facility] [place] [employer] [id number] 01/30/2024 [id number] / / [id number] Stent Synergy Xd Mr [id number] - [id number] Implanted:Qty: 1 on 07/27/2022 by Yoli Rocha MD at [facility] [place] [employer] 11/08/2023 [id number] / / [id number] documented as of this encounter Visit Diagnoses Diagnosis GENERAL OSTEOARTHROSIS Generalized osteoarthrosis, unspecified site LUMB-LUMBOSAC DISC DEGEN Degeneration of lumbar or lumbosacral intervertebral disc Essential hypertension with goal blood pressure less than 140/90 documented in this encounter Advance Directives Latest Code Status on File Code Status Date Activated Date Inactivated Comments Full Code 07/27/2022 12:56 PM 07/28/2022 1:52 PM This o rder reflects the patients wishes and were consensually agreed upon. Question Answer Comments Discussion of Advance Directives occurred with: Not Discussed due to patient's condition Care Teams Aligning Inspector Relationship Specialty Start Date End Date Jazzy Appiah DO [address] [place] [address] [place] [phone] PCP - General Internal Medicine 03/12/17 documented as of this encounter
--- OUTSIDE RECORDS SUMMARY | 2023-10-07 14:33 | External Medical Summary | Summary of Care ---
Author Name Unknown Organization [facility] Address [address] [place] [address] Phone [phone] Care Team Providers Care Carbide Grinder Name Role Phone Jazzy Appiah DO Primary Care Provider + [phone] Reason for Referral * Precert (Within 10 days (routine)) - Authorized Specialty Diagnoses / Procedures Referred By Viv apodaca Referred To Contact Cardiac Studies Diagnoses Aortic valve stenosis, etiology of cardiac valve disease unspecified Mitral valve disease Coronary artery disease involving kotzebue coronary artery of kotzebue heart without angina pectoris S/P primary angioplasty with coronary stent Chronic heart failure with preserved ejection fraction (HCC) HTN, goal below 140/90 Dyslipidemia, goal LDL below 70 Procedures ECHO, TTE, LIMITED Pricilla Morse CRNP [address] [place] [address] Referral ID Status Reason Start Date Expiration Date V isits Requested Visits Authorized [id number] Authorized Precert 09/28/2023 999 999 * Evaluate & Treat - Unlimited Visits (Within 10 days (routine)) - Authorized Specialty Diagnoses / Procedures Referred By Viv apodaca Referred To Contact Cardiovascular Medicine Diagnoses Aortic valve stenosis, etiology of cardiac valve disease unspecified Mitral valve disease Coronary artery disease involving kotzebue coronary artery of kotzebue heart without angina pectoris S/P primary angioplasty with coronary stent Chronic heart failure with preserved ejection fraction (HCC) HTN, goal below 140/90 Dyslipidemia, goal LDL below 70 Pricilla Morse CRNP [address] [place] [address] Referral ID Status Reason Start Date Expiration Date Visits Requested Visits Authorized [id number] Authorized Specialty Services Required 09/28/2023 999 999 Question Answer Referral Priority Within 10 days (routine) Where should this appointment be scheduled? [facility] Comments --discordant data on imaging. Patient having chest pain and shortness of breath. Recent left main stent. Also noting mitral stenosis or regurgitation with elevated pulmonary pressures Reason for Visit * Reason Comments Follow Up Encounter Details Date Type Department Care Team (Late st Contact Info) Description 09/28/2023 3:30 PM EST Office Visit Cardiology, [facility] [address] [place] [id number] Pricilla Morse CRNP [address] [place] [id number] Aortic valve stenosis, etiology of cardiac valve disease unspecified*; Mitral valve disease; Coronary artery disease involving kotzebue coronary artery of kotzebue heart without angina pectoris; S/P primary angioplasty with coronary stent; Chronic heart failure with preserved ejection fraction (HCC); HTN, goal below 140/90; Dyslipidemia, goal LDL below 70 Allergies Active Allergy Reactions Criticality Noted Date Comments Ramipril Unknown Low 01/08/2014 Gabapentin Edema Other Medium 03/30/2011 Attempted x 3 with resultant fatigue and peripheral edema Oxycodone 06/09/2019 Makes me go crazy documented as of this encounter (statuses as of 09/28/2023) Medications Medication Sig Dispensed Refills Start Date [...] disease unspecified,Mitral valve disease,Coronary artery disease involving kotzebue coronary artery of kotzebue heart without angina pectoris,S/P primary angioplasty with coronary stent,Chronic heart failure with preserved ejection fraction (HCC),HTN, goal below 140/90,Dyslipidemia, goal LDL below 70 Take 1 Tablet by mouth in the morning. 90 Tablet 3 09/28/2023 Active documented as of this encounter (statuses as of 09/28/2023) Active Problems Problem Noted Date Diagnosed Date [...] 0 10/01/2013 Coronary artery disease invo lving kotzebue coronary artery of kotzebue heart without angina pectoris 05/20/2013 Hyperlipidemia with target LDL less than 70 08/23 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 02/28/2012 GENERAL OSTEOARTHROSIS Hiatal hernia documented as of this encounter (statuses as of 09/28/2023) Resolved Problems Problem Noted Date Diagnosed Date Resolved Date Hypertensive kidney disease with chronic kidney disease stage III 11/04/2018 06/03/2020 Overview: Per CKD protocol Carpal tunnel syndrome of left wrist 11/11/2015 09/18/2017 Tubular adenoma of colon 04/14/2015 Benign esophageal stricture 03/15/2015 09/18/2017 MEDICATION USE AGREEMENT 08/21/2014 Overview: Signed 08/21/2014 Nazanin Mayfield MD [facility] as backup Anemia 10/01/2013 04/08/2015 COPD, mild [...] determined 12/17/2009 1 Benign neoplasm of colon 06/08/2008 01/ 02/2018 Overview: hyperplastic polyp--repeat 10 years COPD, severity [...] as of this encounter (statuses as of 09/28/2023) Immunizations Name Administration Dates Next Due COVID-19 mRNA, LNP-s, No Pre serve, 2-Dose Series ([employer]) 11/20/2020,10/26/2020 Pneumococcal Conjugate Vacc, 13 Valent (Prevnar) [...] 0 10/24/1948 - 10/24/1976 Smokeless Tobacco: Never Tobacco Cessation:Counseling Given: Not Answered Comments:quit 1988 Alcohol Use Standard Drinks/Week Comments [...] on file documented as of this encounter Last Filed Vital Signs Vital Sign Reading Time Taken Comments Blood Pressure 178/68 09/28/2023 3:37 PM EST Pulse 52 09/28/2023 3:37 PM EST Temperature - - Respiratory Rate - - Oxygen Saturation - - Inhaled Oxygen Concentration - - Weight - - Height - - Body Mass Index - - documented in this encounter Functional Status Functional Status Response [...] No 07/27/2022 documented as of this encounter Patient Instructions * Patient Instructions* Pricilla Morse CRNP - 09/28/2023 3:48 PM EST STOP Aldactone/Spironolactone -- LET ME KNOW SAMIRA if your swelling worsens. Repeat Blood work in 7-10 days (next Wednesday 10/04) START Imdur 30 mg daily Start to monitor blood pressures at home, especially if you are not feeling well. If you develop chest pain-- stop and take your blood pressure. If the top number is greater than 140 OKAY to take a sublingual nitro. However, I want you to call me so I can adjust your Imdur dose. [facility] Cardiology number: (ask to be connected to [facility] cardiology) DENIA MCCLELLAN-- ask for my nurse documented in this encounter Progress Notes * Pricilla Morse CRNP - 09/28/2023 3:30 PM EST Images from the original note were not included. 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 Patient carries a history of aortic stenosis. Assessment of aortic stenosis has been discoordinate on serial imaging however cardiac catheterization dated 04/2022 did not fact reveal moderate aortic stenosis. Recent echo obtained on 09/25/2023 showed a preserved LVEF of 55-59% without wall motion abnormalities. Aortic valve appeared severely calcified with Doppler assessment consistent with moderate aortic stenosis however 2D was relation was more suggestive of severe. She also had mild aortic regurgitation. In addition to her aortic disease the mitral valve appeared severely calcified with mild MS and mild MR. Pulmonary pressures were elevated and there was question of worsening stenosis/regurgitation. Patient carries a history of esophageal strictures and has had dilations in the past. But a LANEY was able to be performed in [place] in April of 2022. Patient was most recently evaluated by Adela Lopez PA-C approximately 2 weeks ago. At si time she had concerns regarding a nagging chest discomfort that comes and goes with some shortness of breath and palpitations. There was also concerns for fluid retention-- patient was encouraged increase torsemide but declined due to concerns regarding her kidneys. Spironolactone was added instead. Today the patient presents with her son. Notes that she is feeling poorly Over the last 2 weeks. Earlier this morning she developed a tightness in her chest and became very nauseated. She did not vomit. Notes that she was just sitting in her chair when this happened. She took a sublingual nitroglycerin in about 2 hours later symptoms finally let up. She has some mild dyspnea but this improved with the addition of spironolactone. Notes that she is down 11 lb. Billing is back to baseline. She denies palpitations. No lightheadedness or Dizziness. No fever, chills, cough, hematochezia, melena, orhemoptysis. Lives a rather sedentary life. She is able to ambulate with a cane but did come into the office today with a wheelchair. Hesitant having difficulty with swallowing. Notes that they are hesitant to do any further esophageal dilations because of this. Patient is compliant with all medications, and offers no side effects. Occasionally monitors blood pressures at home. Systolics are always greater than 150 per the patient. Current Outpatient Medications Medication Sig Dispense Refill STOOL SOFTENER 100 MG PO TABS 1-2 tabs twice daily for constipation CRANBERRY PLUS VITAMIN C 140-100-3 MG-MG-UNIT PO CAPS four tablets by mouth daily Cyanocobalamin (B-12) 1000 MCG Capsule Take 1 Capsule by mouth in the morning. Aspirin 81 MG Tablet Take 1 Tablet by mouth in the morning. Nitroglycerin 0.3 MG Sublingual Tablet Sublingual (NITROSTAT) Place 1 Tablet under the tongue every5 minutes as needed for Pain, Chest. up to 3 doses in 15 minutes. 100 Tab 11 Vitamin B6 50 MG Oral Tablet Take by mouth . Unsure dosage Vitamin E 450 MG Oral Capsule Take by mouth 1 Capsule daily . 675 ug Vitamin D 25 MCG (1000 UT) Oral Tablet Take 1 Tablet by mouth in the morning. Losartan Potassium 50 MG Oral Tablet (Cozaar) Take 1 Tablet (50 mg) by mouth in the morning. 180 Tablet 1 Torsemide 10 MG Oral Tablet (Demadex) TAKE 1 TABLET BY MOUTH ONCE DAILY IN THE MORNING MAY TAKE 1 EXTRA TORSEMIDE IF WEIGHT GAIN OF 3-4 LBS OVERNIGHT (Patient taking differently: 20 mg MWF, 10 mg allother days) 120 Tablet 3 amLODIPine Besylate 5 MG Oral Tablet (Norvasc) Take 1 Tablet by mouth in the morning. 90 Tablet 1 Atorvastatin Calcium 20 MG Oral Tablet (Lipitor) Take 1 Tablet by mouth in the morning. 90 Tablet 1 Omeprazole 20 MG Oral Capsule Delayed Release (PriLOSEC) Take 1 Capsule by mouth in the morning. 90Capsule 0 Carvedilol 6.25 MG Oral Tablet (Coreg) Take 1 Tablet by mouth in the morning and 1 Tablet before bedtime. 180 Tablet 3 Spironolactone 25 MG Oral Tablet (Aldactone) Take 0.5 Tablets by mouth in the morning. 30 Tablet 5 HYDROcodone-Acetaminophen 10-325 MG Oral Tablet Take 1 Tablet by mouth 2 times a day as needed for Pain, Severe. 60 Tablet 0 hydrALAZINE HCl 50 MG Oral Tablet (Apresoline) Take 1 Tablet by mouth in the morning and 1 Tablet at noon and 1 Tablet before bedtime. 270 Tablet 3 Isosorbide Mononitrate ER 30 MG Oral Tablet Extended Release 24 Hour (Imdur) Take 1 Tablet by mouthin the morning. 90 Tablet 3 Ascorbic Acid (VITAMIN C) 1000 MG Tablet Take 0.5 Tablets by mouth in the morning. Acetaminophen ER 650 MG Oral Tablet Extended Release Take 1 Tablet by mouth every 8 hours as needed. No current facility-administered medications for this visit. Past Medical History: Diagnosis Date Anemia 10/01/2013 Aortic valve stenosis, moderate 10/01/2013 Chawla's esophagus 05/06/10 repeat EGD in 2 years Benign esophageal stricture 03/15/2015 Benign neoplasm of colon 06/08/08 hyperplastic polyp--repeat 10 years Carotid artery stenosis Carpal tunnel syndrome bilateral Carpal tunnel syndrome of left wrist 11/11/2015 Cervical spinal stenosis 04/17/2016 Cervical spondylosis Cervicalgia 05/12/2010 Cholecystitis 06/03 Chronic coronary artery disease 05/20/2013 COPD, mild ([facility]) 03/31/2013 Degeneration of lumbosacral intervertebral disc 2000 had MRI Degenerative disc disease, cervical 02/02/2015 Dermatophytosis of nail 12/02/2002 Diaphragmatic hernia Diverticulosis Drug-induced constipation 11/27/2016 Dyslipidemia, goal LDL below 100 09/02/2012 Edema chronic BLE edema Essential hypertension with goal blood pressure less than 140/90 04/17/2016 Gastroesophageal reflux disease without esophagitis 06/29/2015 Generalized osteoarthritis left shoulder in particular Hiatal hernia HTN, goal below 140/90 04/18/2010 Inflammation of sacroiliac joint ([facility]) 09/15/2011 Iron deficiency anemia 03/15/2015 Irritable bowel syndrome Kidney disease, chronic, stage III (GFR 30-59 ml/min) ([facility]) 03/31/2013 Knee joint replacement status 5-12-03 left knee Lumbago 11/21/2010 Lumbar degenerative disc disease 06/29/2015 Lumbar spinal stenosis 06/29/2015 LUMBOSACRAL NEURITIS NOS 03/08/2011 Mitral valve prolapse MYALGIA AND MYOSITIS NOS 01/05/2011 NONALLERGIC RHINITIS 04/29/2004 OCCIPITAL NEURALGIA 01/05/2011 Osteoporosis 05/13/2010 Other chest pain non cardiac Other chronic sinusitis recurrent sinusitis PAD (peripheral artery disease) ([facility]) 03/03/2015 Periumbilical hernia Popliteal synovial cyst R leg Precordial pain noncardiac. Normal cardiac cath 1991 Pulmonary hypertension ([facility]) artery PVD (peripheral vascular disease) ([facility]) Reflux esophagitis RESPIRATORY ABNORM NEC 04/29/2004 Rheumatic fever as a child Rheumatic heart disease h/o systolic heart murmur Sacroiliac joint disease 09/15/2011 Senile osteoporosis based on FRAX, major risk of 22% Spinal stenosis of lumbar region without neurogenic claudication 1999 seen on MRI Tension headache Tietze's disease costochondritis Tubular adenoma of colon 04/14/15 Umbilical hernia VITAMIN D DEFICIENCY NOS 05/24/2011 Past Surgical History: Procedure Laterality Date ABD/PELVIS CT W/ + W/O IV AND W/PO CONTRAST 10/07/08 constipation, small EHH, periumbiical hernia ANESTHESIA FOR CAT OR MRI SCAN N/A 09/26/2018 ANESTHESIA FOR NON-INVASIVE IMAGING (MRI OR CT) performed by [facility] at OR [facility] ARTHROPLASTY KNEE TOTAL 5-5-14 dr rodriguez left knee CARDIAC ANGIOPLASTY, PERCUTANEOUS, 1 ARTERY Left 07/27/2022 PTCA, CARDIAC ANGIOPLASTY, PERCUTANEOUS, 1 ARTERY performed by Yoli Rocha MD at CARDIAC LABS [facility] CARPAL TUNNEL SURGERY 08/05/08 right CATHETERIZE LEFT HEART THRU SKIN 1991 Cardiac Catheterization, Left Heart, was normal [facility] COLONOSCOPY W/ BIOPSY (RECTUM) 06/08/2008 hyperplastic polyp--repeat 10 years COLONOSCOPY, DIAGNOSTIC (RECTUM) 04/14/2015 adenomatous polyp, melanosis, repeat 5 yrs/[facility] CORONARY ANGIOGRAPHY W/RIGHT+LEFT CATH N/A 01/08/2019 CORONARY ANGIOGRAPHY W/RIGHT+LEFT CATH performed by Shyam Son MD at CARDIAC LABS [facility] CORONARY ANGIOGRAPHY W/RIGHT+LEFT CATH Right 05/31/2022 CORONARY ANGIOGRAPHY W/RIGHT+LEFT CATH performed by Yoli Rocha MD at CARDIAC LABS [facility] CV STRESS TREADMILL 04/20/06 abnormal myocardial images with evidence for anterolateral ischemia, nl LV wall motion and thickening, nl LV EF of 61% ECHO,TTE W/O SPECTRAL + COLOR-FLOW DOPPLER 04/20/06 Dr Anne, nl LV function and EF 55%, LVH, mild to mod MR, possible left to right shunt at superior portion of basilar septum ECHO,TTE W/O SPECTRAL + COLOR-FLOW DOPPLER 06/05/07 LVEF 55%, LVH mild AI, possible tiny basilar ventricular septal defect EGD, FLEXIBLE, DIAGNOSTIC 02/05/2012 UPPER GI ENDOSCOPY DIAGNOSTIC performed by Ricky Rogers MD at [facility] EGD, FLEXIBLE, DIAGNOSTIC 03/08/2015 Barretts, HH/inpt [facility] EGD, FLEXIBLE, DIAGNOSTIC 06/12/2017 Barretts, hiatal hernia, repeat 2 yrs/[facility] EGD, FLEXIBLE, DIAGNOSTIC 07/07/2019 normal / [facility] EGD, FLEXIBLE, TRANSENDOSCOPIC DILATION <30MM 02/19/09 done mild esophagitis, possible short segment barretts, small hiatal hernia,few polyps in stomach path pending EGD, FLEXIBLE, W/BIOPSY 08/31/[address] EGD, FLEXIBLE, W/BIOPSY 02/19/09 done acid reflux EGD, FLEXIBLE, W/BIOPSY 05/06/10 biopsies--Barretts esophagitis--repeat 2 years EGD, W/ENDOSCOPIC US 04/10/2012 UPPER GI ENDOSCOPY ENDOSCOPIC ULTRASOUND performed by Gilmar Soler MD at OR [facility] FLUORO BARIUM ENEMA W AIR normal PAH LAPAROSCOPY, CHOLECYSTECTOMY WITH CHOLANGIOGRAPHY 06/12/12 Lap radha, with cholangiogram, lysis of abdominal adhesions, incisional hernia repair with atrium mesh 06/12/12 Dr. Metcalf at [facility] LYSIS OF LABIAL LESIONS N/A 12/23/2015 LYSIS OF LABIAL ADHESIONS performed by Jordan Rodriguez MD at OR [facility] MAMMOGRAM SCREENING-BILATERAL 01/26/06 stable microcalcifications on left, category 2 benign MOBILE DXA 12/03/2017 Femur T -2.4, fx risk 15%/4.2%, high risk, treatment recommended REMOVAL OF APPENDIX 1947 Appendectomy REMOVAL OF OVARY(S) 1986 Oophrectomy,Uni/Bilat REPAIR UMBILICAL HERNIA, UNDER 5 YR Hernia,Umbilical SACROILIAC JOINT INJECT W/GUIDANCE 06/09/2019 INJECTION SACROILIAC JOINT performed by He Simons, at [facility] SIGMOIDOSCOPY, DIAGNOSTIC negative Dr. Bowen VAGINAL HYSTERECTOMY 1986 Hysterectomy, Vaginal VASC DUPLEX CAROTID BILAT 06/29/08 16-49% LICA and TAE XR TMJ BILATERAL 10/20/09 Advanced range degenerative narrowing in the medial compartment Social History Tobacco Use Smoking status: Former Current packs/day: 0.00 Average packs/day: 3.0 packs/day for 30.0 years (90.0 ttl pk-yrs) Types: Cigarettes Start date: 10/24/1948 Quit date: 10/24/1976 Years since quittin.9 Smokeless tobacco: Never Tobacco comments: quit 1988 Vaping Use Vaping Use: Never used Substance Use Topics Alcohol use: No Comment: rarely Drug use: No Review of patient's allergies indicates: Allergen Reactions Neurontin [Gabapentin] Edema Other Attempted x 3 with resultant fatigue and peripheral edema Oxycodone Makes me go crazy Altace [Ramipril] Unknown Review of Systems: See HPI for pertinent positives. All others negative, other than those noted in HPI. Physical Exam: BP 178/68 | Pulse 52 General: No acute distress. A+Ox3. HEENT: Normocephalic. Atraumatic. Conjunctiva and sclera clear. NECK: No JVD. Carotid upstrokes are brisk. Heart: RRR. +S1, diminished S2., +harsh 4/6 systolic murmur. + diastolic murmur Lungs: Clear to auscultation. No wheezes, rhonchi, rales. Abdomen: Normal bowel sounds. Soft. Nontender. No masses or organomegaly. No abdominal bruits. Extremities: Trace BLLE edema. No clubbing or cyanosis. Pulses: radial=2/4, posterior tibial=2/4, dorsalis pedis = 2/4. NEURO: No focal deficits. PSYCH: Normal. Lab data/imaging study review: Echocardiogram 09/25/2023 The examination is adequate to evaluate the referral indication. The LV wall thickness is mildly increased (concentric). The left ventricular wall motion is normal. The qualitative LV ejection fraction is 55-59% (normal). The left atrium is severely enlarged. The aortic valve is severely calcified. The Doppler assessment is consistent with moderate aortic stenosis however on 2D visualization, severe aortic stenosis is suggested. Mild aortic valve regurgitation is present. At least mild mitral stenosis is suggested however the Doppler assessment is incomplete. Mild mitral regurgitation is present. Moderate tricuspid regurgitation is present. Severe pulmonary hypertension is present. The estimated pulmonary artery systolic pressure is 68 mm Hg. Compared to the report of the previous study dated 05/16/2022, the peak Doppler velocities across the aortic valve are relatively unchanged. Severe pulmonary hypertension is now present. Cardiac catheterization in/stage PCI 07/27/2022 Cardiac catheterization 05/31/2022 at [facility] Impression/Plan: This is a 78 year old female who is being evaluated in the cardiology office for ongoing care/risk management for the below diagnoses. 1. Aortic valve stenosis -Severe aortic stenosis, discordant date on echo -Moderate per cath, 04/2022 1. Progressive dyspnea, having chest pain. Recommend referral back to the valve clinic to discuss /TAVR. Degree of stenosis discoordinate on recent echoes as assessed also in the past. LANEY vs repeat cath at [facility] may be helpful-- hesitant for LANEY due to esophageal strictures. 2. Mitral valve disease -Mitral regurgitation and stenosis, pulmonary pressures on recent echo suggestive of worsening pulmonary pressures. -volume status improved. NYHA class 3 1. Recommend limited echo to further assist degree of mitral stenosis. Future considerations of proceeding with a repeat LANEY however as stated above, patient have issues with swallowing and dilationsin the past. 2. Elevated pulmonary pressures may need consider repeat right/hemodynamic catheterization. 3. Coronary artery disease involving kotzebue coronary artery of kotzebue heart without angina pectoris 4. S/P primary angioplasty with coronary stent -Coronary artery disease, status post PCI to the , 07/27/2022 -Had chest discomfort this am, reportly took SL nitro with improvement in symptoms after two hours.BP elevated today and has been elevated at home. 1. Continue aspirin 81 mg daily 2. Start Imdur 30 mg daily. 5. Chronic heart failure with preserved ejection fraction (HCC) -NYHA class 3 -VL status improved with the addition of aldactone 1. Patient is taking torsemide 10 mg daily with an additional 10 mg on Sunday-- may need to increase to 20 mg daily. 2. Patient does not wish to remain on spironolactone due to concerns regarding kidney disease. Okayto discontinue. We will need to closely monitor volume status. 6. HTN, goal below 140/90 -Blood pressures are elevated. +CP and dyspnea. 1. Continue multi-drug regimen of amlodipine, carvedilol, hydralazine, losartan, and torsemide as ordered. 2. Start Imdur 30 mg daily. 7. Dyslipidemia, goal LDL below 70 Continue atorvastatin 20 mg daily Patient Instructions STOP Aldactone/Spironolactone -- LET ME KNOW SAMIRA if your swelling worsens. Repeat Blood work in 7-10 days (next Wednesday 10/04) START Imdur 30 mg daily Start to monitor blood pressures at home, especially if you are not feeling well. If you develop chest pain-- stop and take your blood pressure. If the top number is greater than 140 OKAY to take a sublingual nitro. However, I want you to call me so I can adjust your Imdur dose. [facility] Cardiology number: (ask to be connected to [facility] cardiology) DENIA MCCLELLAN-- ask for my nurse The patient agrees to the above plan and will call with additional questions or concerns. ER with all emergencies advised. Follow-up: Return in about 3 weeks (around 10/19/2023). | Check-out note: Schedule limited echo at . Valve clinic referral. I spent a total of 40 minutes on the date of service in preparation, delivery, and documentation ofthe care provided to Georgina Pugh excluding any time spent in the performance of separately billed services. DENIA Nichols fransisco, Department of Cardiology This chart was completed in part utilizing [employer] Voice Recognition Software. Grammatical errors, random word insertions, prounoun errors, and incomplete sentences are an occasional consequence of this system due to software limitations, ambient noise, and hardware issues. Any formal questions or concerns about the content, text, or information contained within the body of this dictation should be directly addressed to the provider for clarification. documented in this encounter Nursing Notes * Ilana Schulte CMA - 09/28/2023 3:28 PM EST Examination Room: 7 Name: Georgina Pugh Date of : (1945) Reason for Visit: 2 week Interim Hospitalization(s): none Problems/Concerns: denied Chest Pain/SOB: had bad chest pain and tightness today. Took nitro today, better after 2 hours. My [facility] is a way you can talk to your provider online through e-mail. Would you like to sign up? I can activate it for you? ALREADY ACTIVE Patient was instructed to not get up on the exam table until directed and assisted by their provider; patient is to remain seated in the chair/ wheelchair/ exam table for fall prevention and safety reasons. Patient is aware to have assistance to step down off exam table with personnel. Patient voiced full comprehension of instructions. documented in this encounter Plan of Treatment Upcoming Encounters Date Type Department Care Team (Late st Contact Info) Description 10/19/2023 10:30 AM EDT Office Visit Cardiology, [facility] 132 [facility] [place] [address] Pricilla Morse CRNP [address] [place] [address] 12/13/2023 2:30 PM EDT Cardiac Studies Cardiac Studies, [facility] 132 [facility] [place] [address] 04/23/2024 3:10 PM EDT Office Visit Family Medicine [address] [place] [phone] [place] [address] Scheduled Orders Name Type Priority Associated Diagnoses Orde r Schedule EKG EKG Routine Aortic valve stenosis, etiology of cardiac valve disease unspecified Mitral valve disease Coronary artery disease involving [place] coronary artery of [place] heart without angina pectoris S/P primary angioplasty with coronary stent Chronic heart failure with preserved ejection fraction (HCC) HTN, goal below 140/90 Dyslipidemia, goal LDL below 70 Ordered: 09/28/2023 ECHO, TTE, LIMITED Echocardiology Routine Aortic valve stenosis, etiology of cardiac valve disease unspecified Mitral valve disease Coronary artery disease involving [place] coronary artery of [place] heart without angina pectoris S/P primary angioplasty with coronary stent Chronic heart failure with preserved ejection fraction (HCC) HTN, goal below 140/90 Dyslipidemia, goal LDL below 70 Expected: 09/28/2023, Expires: 09/27/2024 BASIC METABOLIC PANEL Lab Routine Aortic valve stenosis, etiology of cardiac valve disease unspecified Mitral valve disease Coronary artery disease involving [place] coronary artery of [place] heart without angina pectoris S/P primary angioplasty with coronary stent Chronic heart failure with preserved ejection fraction (HCC) HTN, goal below 140/90 Dyslipidemia, goal LDL below 70 Expected: 10/05/2023, Expires: 09/27/2024 Scheduled Referrals Name Type Priority Associated Diagnoses Orde r Schedule VALVE CLINIC REFERRAL OP Referral Within 10 days (routine) Aortic valve stenosis, etiology of cardiac valve disease unspecified Mitral valve disease Coronary artery disease involving [place] coronary artery of [place] heart without angina pectoris S/P primary angioplasty with coronary stent Chronic heart failure with preserved ejection fraction (HCC) HTN, goal below 140/90 Dyslipidemia, goal LDL below 70 Ordered: 09/28/2023 Health Maintenance Due Date Last Done Comments Alpha-1 Antitrypsin 1961 Zoster Vaccines (1 of 2) 1993 DXA Scan 12/04/2020 12/04/2017, 07/24, 07/21/2010, Additional history exists Depression Screening 01/20/2022 01/20/2021 COVID-19 Vaccine ( season) 2023 11/20/2020, 10/26/2020 Chawla's Esophagus Surveilance 04/09/2023 04/09/2020, 07/07/2019, 04/10/2012, Additional history exists *NEPHROLOGY REFERRAL DUE TO RESISTANT HTN 09/16/2023 CKD PHOS USE SMARTSET 23558 11/23/2023 05/0 09/2022, 11/18/2021, 11/02/2020, Additional history exists Albumin/Creatinine Ratio 03/06/2024 023, 05/23/2022, 08/15/2021, Additional history exists GFR 03/23/2024 09/21/2023, 08/24, 04/13/2023, Additional history exists CKD HGB USE SMARTSET 16141 09/14/202409/14, 03/06/2023, 03/06/2023, Additional history exists O2 [...] this encounter Medical Devices Implanted Type Area Licensing Officer Device Identifier Shelf Expiration Date Model / Serial / Lot Cath Thermodilution 6fr - [id number] Implanted:Qty: 1 on 05/31/2022 by Yoli Rocha MD [place] [facility] [place] [employer] [id number] 01/30/2024 [id number] / / [id number] Stent Synergy Xd Mr [id number] - [id number] Implanted:Qty: 1 on 07/27/2022 by Yoli Rocha MD at [facility] [place] [employer] 11/08/2023 [id number] / / [id number] documented as of this encounter Visit Diagnoses Diagnosis Aortic valve stenosis, etiology of cardiac valve disease unspecified- Primary Mitral valve disease Other and unspecified mitral valve diseases Coronary artery disease involving [place] coronary artery of [place] heart without angina pectoris S/P primary angioplasty with coronary stent Postsurgical percutaneous transluminal coronary angioplasty status Chronic heart failure with preserved ejection fraction (HCC) HTN, goal below 140/90 Unspecified essential hypertension Dyslipidemia, goal LDL below 70 Other and unspecified hyperlipidemia documented in this encounter Advance Directives Latest Code Status on File Code Status Date Activated Date Inactivated Comments Full Code 07/27/2022 12:56 PM 07/28/2022 1:52 PM This o rder reflects the patients wishes and were consensually agreed upon. Question Answer Comments Discussion of Advance Directives occurred with: Not Discussed due to patient's condition Care Teams Carbide Grinder Relationship Specialty Start Date End Date Jazzy Appiah DO [address] [place] [address] HOME [place] [phone] PCP - General Internal Medicine 03/12/17 documented as of this encounter"
--- OUTSIDE RECORDS SUMMARY | 2023-10-07 14:33 | External Medical Summary | Summary of Care ---
Author Name Unknown Organization [facility] Address 100 [facility] [place] [address] Phone [phone] Care Team Providers Care Pipeline Operator Name Role Phone Jazzy Appiah DO Primary Care Provider + [phone] Reason for Visit * Reason Onset Date Comments Test Results 09/17/2023 Encounter Details Date Type Department Care Team (Late st Contact Info) Description 09/17/2023 Telephone Family [address] [place] [phone] Jazzy Appiah DO [address] [place] [address] [place] [address] Test Results Allergies Active Allergy Reactions Criticality Noted Date Comments Ramipril Unknown Low 01/08/2014 Gabapentin Edema Other Medium 03/30/2011 Attempted x 3 with resultant fatigue and peripheral edema Oxycodone 06/09/2019 Makes me go crazy documented as of this encounter (statuses as of 09/18/2023) Medications Medication Sig Dispensed Refills Start Date [...] the morning. 180 Tablet 1 06/30/2022 Active hydrALAZINE HCl 50 MG Oral Tablet (Apresoline)Indicati ons:Essential hypertension with goal blood pressure less than 140/90 Take 1 Tablet by mouth in the morning and 1 Tablet at noon and 1 Tablet before bedtime. 270 Tablet 3 10/06/2022 Active Torsemide 10 MG Oral Tablet (Demadex)Indications [...] before bedtime. 180 Tablet 3 08/08/2023 Active HYDROcodone-Acetamin ophen 10-325 MG Oral TabletIndications:Ge neralized osteoarthritis,Degen eration of lumbosacral intervertebral disc Take 1 Tablet by mouth 2 times a day as needed for Pain, Severe. 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 02/28/2012 GENERAL OSTEOARTHROSIS Hiatal hernia documented as of this encounter (statuses as of 09/18/2023) Resolved Problems Problem Noted Date Diagnosed Date Resolved Date Hypertensive kidney disease with chronic kidney disease stage III 11/04/2018 06/03/2020 Overview: Per CKD protocol Carpal tunnel syndrome of left wrist 11/11/2015 09/18/2017 Tubular adenoma of colon 04/14/2015 Benign esophageal stricture 03/15/2015 09/18/2017 MEDICATION USE AGREEMENT 08/21/2014 Overview: Signed 08/21/2014 Nazanin Mayfield MD [facility] as backup Anemia 10/01/2013 04/08/2015 COPD, [...] as of this encounter (statuses as of 09/18/2023) Immunizations Name Administration Dates Next Due COVID-19 mRNA, LNP-s, No Pre serve, 2-Dose Series ([place]) 11/20/2020,10/26/2020 Pneumococcal Conjugate Vacc, 13 Valent (Prevnar) [...] encounter Miscellaneous Notes * Telephone Encounter - Rosa Reyes RN - 09/18/2023 4:12 PM EST Letter was sent * Telephone Encounter - Sylvia Trinidad OSA - 09/17/2023 10:40 AM EST Who is Requesting Test Results: Pt request Primary Care Provider : Jazzy Appiah, DO Tests Results Requested : Labs Date of Test : Location of Test: [place] Ordering Provider: Dr. Appiah Patient has been made aware that the turnaround time for test results are typically as follows: Laboratory results = within 2-3 days ([facility]), 3-5 days (Non[facility], ie. [facility]) Urine Cultures = within 2-3 days depending on growth within the culture Pathology results (biopsy results/PAP) = 1-2 weeks Radiology results = about 1 week Cologuard results = within 2 weeks from the shipment date COVID testing = about 24 hours documented in this encounter Plan of Treatment Upcoming Encounters Date Type Department Care Team (Late st Contact Info) Description 09/19/2023 10:30 AM EST Office Visit Vascular Surgery, [facility] 132 [facility] [place] [address] Michael Hernandez [facility] [address] 09/25/2023 2:30 PM EST Cardiac Studies Cardiac Studies [address] [place] [address] 09/28/2023 3:30 PM EST Office Visit Cardiology, [facility] 132 [facility] [place] [address] Pricilla Morse CRNP 132 [facility] [place] [address] 04/23/2024 3:10 PM EDT Office Visit Family Medicine [address] [place] [phone] [place] [address] Health Maintenance Due Date Last Done Comments Alpha-1 Antitrypsin 1961 Zoster Vaccines (1 of 2) 1993 DXA Scan 12/04/2020 12/04/2017, 07/24, 07/21/2010, Additional history exists Depression Screening 01/20/2022 01/20/2021 COVID-19 Vaccine ( season) 2023 11/20/2020, 10/26/2020 Chawla's Esophagus Surveilance 04/09/2023 04/09/2020, 07/07/2019, 04/10/2012, Additional history exists *NEPHROLOGY REFERRAL DUE TO RESISTANT HTN 09/16/2023 CKD PHOS USE SMARTSET 46176 11/23/2023 05/0 09/2022, 11/18/2021, 11/02/2020, Additional history exists Albumin/Creatinine Ratio 03/06/2024 023, 05/23/2022, 08/15/2021, Additional history exists GFR 03/14/2024 09/14/2023, 03/24, 03/14/2023, Additional history exists CKD HGB USE SMARTSET 65648 09/14/202409/14, 03/06/2023, 03/06/2023, Additional history exists O2 [...] this encounter Medical Devices Implanted Type Area Plastic Cnc Machine Operator Device Identifier Shelf Expiration Date Model / Serial / Lot Cath Thermodilution 6fr - [id number] Implanted:Qty: 1 on 05/31/2022 by Yoli Rocha MD [place] [facility] [place] [employer] [id number] 01/30/2024 [id number] / / [id number] Stent Synergy Xd Mr [id number] - [id number] Implanted:Qty: 1 on 07/27/2022 by Yoli Rocha MD at [facility] [place] [email or web address] 11/08/2023 [id number] / / [id number] documented as of this encounter Advance Directives Latest Code Status on File Code Status Date Activated Date Inactivated Comments Full Code 07/27/2022 12:56 PM 07/28/2022 1:52 PM This o rder reflects the patients wishes and were consensually agreed upon. Question Answer Comments Discussion of Advance Directives occurred with: Not Discussed due to patient's condition Care Teams Pipeline Operator Relationship Specialty Start Date End Date Jazzy Appiah DO [address] [place] [address] HOME [place] [phone] PCP - General Internal Medicine 03/12/17 documented as of this encounter
--- OUTSIDE RECORDS SUMMARY | 2023-10-07 14:33 | External Medical Summary | Summary of Care ---
Author Name Unknown Organization [facility] Address [address] [facility] [place] [address] Phone [phone] Care Team Providers Care Telephone Station Installer Name Role Phone Jazzy Appiah DO Primary Care Provider [phone] Encounter Details Date Type Department Care Team (Late st Contact Info) Description 09/19/2023 Orders Only PATIENT PORTAL DO NOT DELETE THIS DEPT USED BY HOME [place] [id number] Allergies Active Allergy Reactions Criticality Noted Date Comments Ramipril Unknown Low 01/08/2014 Gabapentin Edema Other Medium 03/30/2011 Attempted x 3 with resultant fatigue and peripheral edema Oxycodone 06/09/2019 Makes me go crazy documented as of this encounter (statuses as of 09/19/2023) Medications Medication Sig Dispensed Refills Start Date [...] Pain, Severe. 60 Tablet 0 08/27/2023 Active Spironolactone 25 MG Oral Tablet (Aldactone) Take 0.5 Tablets by mouth in the morning. 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 02/28/2012 GENERAL OSTEOARTHROSIS Hiatal hernia documented as of this encounter (statuses as of 09/19/2023) Resolved Problems Problem Noted Date Diagnosed Date Resolved Date Hypertensive kidney disease with chronic kidney disease stage III 11/04/2018 06/03/2020 Overview: Per CKD protocol Carpal tunnel syndrome of left wrist 11/11/2015 09/18/2017 Tubular adenoma of colon 04/14/2015 Benign esophageal stricture 03/15/2015 09/18/2017 MEDICATION USE AGREEMENT 08/21/2014 Overview: Signed 08/21/2014 Nazanin Mayfield MD [facility] as backup Anemia 10/01/2013 04/08/2015 COPD, mild [...] as of this encounter (statuses as of 09/19/2023) Immunizations Name Administration Dates Next Due COVID-19 [...] No 07/27/2022 documented as of this encounter Plan of Treatment Upcoming Encounters Date Type Department Care Team (Late st Contact Info) Description 09/19/2023 10:30 AM EST Office Visit Vascular Surgery, [facility] 132 [facility] [place] [address] Michael Hernandez MD [address] [facility] [place] [address] 09/25/2023 2:30 PM EST Cardiac Studies Cardiac Studies [address] [place] [address] 09/28/2023 3:30 PM EST Office Visit Cardiology, [facility] 132 [facility] [place] [address] Pricilla Morse CRNP 132 [facility] [place] [address] 04/23/2024 3:10 PM EDT Office Visit Family Medicine [address] [place] [phone] [address] [place] [address] Health Maintenance Due Date Last Done Comments Alpha-1 Antitrypsin 1961 Zoster Vaccines (1 of 2) 1993 DXA Scan 12/04/2020 12/04/2017, 07/24, 07/21/2010, Additional history exists Depression Screening 01/20/2022 01/20/2021 COVID-19 Vaccine ( season) 2023 11/20/2020, 10/26/2020 Chawla's Esophagus Surveilance 04/09/2023 04/09/2020, 07/07/2019, 04/10/2012, Additional history exists *NEPHROLOGY REFERRAL DUE TO RESISTANT HTN 09/16/2023 CKD PHOS USE SMARTSET 77967 11/23/2023 05/0 09/2022, 11/18/2021, 11/02/2020, Additional history exists Albumin/Creatinine Ratio 03/06/2024 023, 05/23/2022, 08/15/2021, Additional history exists GFR 03/14/2024 09/14/2023, 03/24, 03/14/2023, Additional history exists CKD HGB USE SMARTSET 29368 09/14/202409/14, 03/06/2023, 03/06/2023, Additional history exists O2 [...] this encounter Medical Devices Implanted Type Area Hazardous Waste Management Specialist Device Identifier Shelf Expiration Date Model / Serial / Lot Cath Thermodilution 6fr - [id number] Implanted:Qty: 1 on 05/31/2022 by Yoli Rocha [place] [facility] [place] [employer] [id number] 01/30/2024 [id number] / / [id number] Stent Synergy Xd Mr 4.13v83cd - [id number] Implanted:Qty: 1 on 07/27/2022 by Yoli Rocha MD [place] [facility] [place] [employer] 11/08/2023 [id number] / / [id number] documented as of this encounter Advance Directives Latest Code Status on File Code Status Date Activated Date Inactivated Comments Full Code 07/27/2022 12:56 PM 07/28/2022 1:52 PM This o rder reflects the patients wishes and were consensually agreed upon. Question Answer Comments Discussion of Advance Directives occurred with: Not Discussed due to patient's condition Care Teams Telephone Station Installer Relationship Specialty Start Date End Date Jazzy Appiah DO [address] [place] [address] HOME [place] [phone] PCP - General Internal Medicine 03/12/17 documented as of this encounter
--- OUTSIDE RECORDS SUMMARY | 2023-10-07 14:33 | External Medical Summary | Summary of Care ---
Author Name Unknown Organization [facility] Address [address] [facility] [place] [address] Phone [phone] Care Team Providers Care Director Of Preclinical Research Name Role Phone Jazzy Appiah DO Primary Care Provider [phone] Reason for Visit * Reason Onset Date Comments Medication Refill 09/26/2023 Encounter Details Date Type Department Care Team (Late st Contact Info) Description 09/26/2023 Refill Family [address] [place] [address] Jazzy Appiah DO [address] [place] [address] [place] [address] Essential hypertension with goal blood pressure less than 140/90 Allergies Active Allergy Reactions Criticality Noted Date Comments Ramipril Unknown Low 01/08/2014 Gabapentin Edema Other Medium 03/30/2011 Attempted x 3 with resultant fatigue and peripheral edema Oxycodone 06/09/2019 Makes me go crazy documented as of this encounter (statuses as of 09/26/2023) Medications Medication Sig Dispensed Refills Start Date [...] before bedtime. 180 Tablet 3 08/08/2023 Active HYDROcodone-Acetami nophen 10-325 MG Oral TabletIndications:G eneralized osteoarthritis,Dege neration of lumbosacral intervertebral disc Take 1 Tablet by mouth 2 times a day as needed for Pain, Severe. 60 Tablet 0 08/27/2023 Active Spironolactone 25 MG Oral Tablet (Aldactone) Take 0.5 Tablets by mouth in the morning. 30 Tablet 5 09/18/2023 Active hydrALAZINE HCl 50 MG Oral Tablet (Apresoline)Indicat ions:Essential hypertension with goal blood pressure less than 140/90 Take 1 Tablet by mouth in the morning and 1 Tablet at noon and 1 Tablet before bedtime. 270 Tablet 3 09/26/2023 Active hydrALAZINE HCl 50 MG Oral Tablet (Apresoline)Indicat ions:Essential hypertension with goal blood pressure less than 140/90 Take 1 Tablet by mouth in the morning and 1 Tablet at noon and 1 Tablet before bedtime. 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 as backup Anemia 10/01/2013 04/08/2015 COPD, [...] as of this encounter (statuses as of 09/26/2023) Immunizations Name Administration Dates Next Due COVID-19 [...] encounter Miscellaneous Notes * Telephone Encounter - Adela Sevilla PA-C - 09/26/2023 11:51 AM EST Signed Prescriptions: Disp Refills hydrALAZINE HCl 50 MG Oral Tablet (Apresol*270 Ta*3 Sig: Take 1Tablet by mouth in the morning and 1 Tablet at noon and 1 Tablet before bedtime.Authorizing Provider: ADELA SEVILLA * Telephone Encounter - iVka Carrillo COT - 09/26/2023 11:45 AM ESTPending Prescriptions: Disp Refills hydrALAZINE HCl 50 MG Oral Tablet (Apresol*270 Ta*3 Sig: Take 1 Tablet by mouth in the morning and 1 Tablet at noon and 1 Tablet before bedtime. * Telephone Encounter - Penny Drummond, flooring professional - 09/26/2023 11:31 AM EST Patient is up to date for office visits. Pending Prescriptions: Disp Refills hydrALAZINE HCl 50 MG Oral Tablet (Apreso*270 Ta*3 Sig: Take 1 Tablet by mouth in the morning and 1 Tablet at noon and 1 Tablet before bedtime. Last Visit: 09/14/2023 (in office), Visit date not found (telemedicine) Next Visit: 04/23/2024 If no future appointments scheduled, and last appointment is greater than a year ago, please schedule patient for a follow-up appointment Last date the medication was ordered: Pharmacy: [facility] [address] [place] [address] Is this request for a controlled substance?NO Results for orders placed or performed in [...] 09/28/2023 3:30 PM EST Office Visit Cardiology, [facility] [address] [place] [address] Pricilla Morse CRNP [address] [place] [address] 04/23/2024 3:10 PM EDT Office Visit Family Medicine [address] [place] [phone] [place] [address] Health Maintenance Due Date Last Done Comments Alpha-1 Antitrypsin 1961 Zoster Vaccines (1 of 2) 1993 DXA Scan 12/04/2020 12/04/2017, 07/24, 07/21/2010, Additional history exists Depression Screening 01/20/2022 01/20/2021 COVID-19 Vaccine ( season) 2023 11/20/2020, 10/26/2020 Chawla's Esophagus Surveilance 04/09/2023 04/09/2020, 07/07/2019, 04/10/2012, Additional history exists *NEPHROLOGY REFERRAL DUE TO RESISTANT HTN 09/16/2023 CKD PHOS USE SMARTSET 89697 11/23/2023 05/0 09/2022, 11/18/2021, 11/02/2020, Additional history exists Albumin/Creatinine Ratio 03/06/2024 023, 05/23/2022, 08/15/2021, Additional history exists GFR 03/23/2024 09/21/2023, 08/24, 04/13/2023, Additional history exists CKD HGB USE SMARTSET 08447 09/14/202409/14, 03/06/2023, 03/06/2023, Additional history exists O2 [...] this encounter Medical Devices Implanted Type Area Tribal Delegate Device Identifier Shelf Expiration Date Model / Serial / Lot Cath Thermodilution 6fr - [id number] Implanted:Qty: 1 on 05/31/2022 by Yoli Rocha MD at [facility] [place] [employer] [id number] 01/30/2024 [id number] / / [id number] Stent Synergy Xd Mr 4.24n55te - [id number] Implanted:Qty: 1 on 07/27/2022 by Yoli Rocha MD at [facility] [place] [employer] 11/08/2023 [id number] / / [id number] documented as of this encounter Visit Diagnoses Diagnosis Essential hypertension with goal blood pressure less [...] Discussed due to patient's condition Care Teams Director Of Preclinical Research Relationship Specialty Start Date End Date Jazzy Appiah DO [address] [place] [address] [place] [phone] PCP - General Internal Medicine 03/12/17 documented as of this encounter
--- OUTSIDE RECORDS SUMMARY | 2023-10-07 14:33 | External Medical Summary | Summary of Care ---
Author Name Unknown Organization [facility] Address [address] [place] [address] Phone [phone] Care Team Providers Care Manager Educational Name Role Phone Jazzy Appiah DO Primary Care Provider [phone] Reason for Visit * Reason Comments Follow Up Carotid stenosis, Encounter Details Date Type Department Care Team (Late st Contact Info) Description 09/19/2023 10:30 AM EST Office Visit Vascular Surgery, [facility] [address] [facility] [place] [address] Michael Hernandez MD [address] [place] [address] Carotid stenosis, non-symptomatic, bilateral*; PAD (peripheral artery disease) ([facility]) Allergies Active Allergy Reactions Criticality Noted Date [...] 0 10/01/2013 Coronary artery disease invo lving miccosukee coronary artery of miccosukee heart without angina pectoris 05/20/2013 Hyperlipidemia with [...] 08/21/2014 Overview: Signed 08/21/2014 Nazanin Mayfield MD [facility] as backup Anemia 10/01/2013 04/08/2015 COPD, mild [...] mRNA, LNP-s, No Pre serve, 2-Dose Series ([employer]) 11/20/2020,10/26/2020 Pneumococcal Conjugate Vacc, 13 Valent (Prevnar) [...] Sign Reading Time Taken Comments Blood Pressure 158/60 09/19/2023 10:49 AM EST Pulse 64 09/19/2023 10:49 AM EST Temperature 36.9 C (98.4 F) 09/19/2023 1 0:49 AM EST Respiratory Rate - - Oxygen Saturation - - Inhaled Oxygen Concentration - - Weight 59.8 kg (131 lb 14.4 oz) 024 10:49 AM EST Height - - Body Mass Index 23.37 07/27/2022 9:45 AM EST documented in this encounter Functional Status Functional [...] as of this encounter Progress Notes * Olu Kitchen PA-C - 09/19/2023 10:30 AM EST Date of Service: 09/19/2023 10:55 AM Georgina Pugh is a 78 year old female. Referring Physician: Jazzy Appiah DO Chief Complaint: Routine follow up for known carotid stenosis and PAD. HPI: Patient is a reformed smoker with long history of neck pain, back pain, and left leg pain, andleft knee pain. She followed with pain clinic for many years, receiving pain pills and injections, as well as a left TKR, none of which seemed to bring much relief of her symptoms. CAROTID DISEASE: Patient denies recent TIA, recent stroke and recent amaurosis fugax. Carotid duplex exam at [facility] identified the right internal carotid with 50- 69% and the left internal carotid with 50-69%stenosis. PERIPHERAL VASCULAR DISEASE: Denies classic vasculogenic claudication, rest pain or ulceration. She has constant neck pain, back pain, and the back pain travels down the back of her leg to the ankle. This pain is at rest or with ambulation. Left is worse than right Maximum ambulation is limited to 10-15 feet. Current Outpatient Medications Medication Sig Dispense Refill CRANBERRY PLUS VITAMIN C 140-100-3 MG-MG-UNIT PO CAPS four tablets by mouth daily Aspirin 81 MG Tablet Take 1 Tablet by mouth in the morning. Acetaminophen ER 650 MG Oral Tablet Extended Release Take 1 Tablet by mouth every 8 hours as needed. amLODIPine Besylate 5 MG Oral Tablet (Norvasc) Take 1 Tablet by mouth in the morning. 90 Tablet 1 HYDROcodone-Acetaminophen 10-325 MG Oral Tablet Take 1 Tablet by mouth 2 times a day as needed for Pain, Severe. 60 Tablet 0 Spironolactone 25 MG Oral Tablet (Aldactone) Take 0.5 Tablets by mouth in the morning. 30 Tablet 5 STOOL SOFTENER 100 MG PO TABS 1-2 tabs twice daily for constipation Cyanocobalamin (B-12) 1000 MCG Capsule Take 1 Capsule by mouth in the morning. Ascorbic Acid (VITAMIN C) 1000 MG Tablet Take 0.5 Tablets by mouth in the morning. Nitroglycerin 0.3 MG Sublingual Tablet Sublingual (NITROSTAT) Place 1 Tablet under the tongue every5 minutes as needed for Pain, Chest. up to 3 doses in 15 minutes. (Patient not taking: Reported on 09/19/2023) 100 Tab 11 Vitamin B6 50 MG [...] mouth in the morning. 180 Tablet 1 hydrALAZINE HCl 50 MG Oral Tablet (Apresoline) Take 1 Tablet by mouth in the morning and 1 Tablet at noon and 1 Tablet before bedtime. 270 Tablet 3 Torsemide 10 MG Oral Tablet (Demadex) TAKE 1 TABLET BY MOUTH ONCE DAILY IN THE MORNING MAY TAKE 1 EXTRA TORSEMIDE IF WEIGHT GAIN OF 3-4 LBS OVERNIGHT (Patient taking differently: 20 mg MWF, 10 mg all other days) 120 Tablet 3 Atorvastatin Calcium 20 MG Oral Tablet (Lipitor) Take 1 Tablet by mouth in the morning. 90 Tablet 1 Omeprazole 20 MG Oral Capsule Delayed Release (PriLOSEC) Take 1 Capsule by mouth in the morning. 90Capsule 0 Carvedilol 6.25 MG Oral Tablet (Coreg) Take 1 Tablet by mouth in the morning and 1 Tablet before bedtime. 180 Tablet 3 No current facility-administered medications for this visit. Review of patient's allergies indicates: Allergen Reactions Neurontin [Gabapentin] Edema Other Attempted x 3 with resultant fatigue and peripheral edema Oxycodone Makes me go crazy Altace [Ramipril] Unknown Patient Active Problem List Diagnosis Code GENERAL OSTEOARTHROSIS M15.9 Hiatal hernia K44.9 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 K22.70 Hyperlipidemia with target LDL less than 70 E78.5 Coronary artery disease involving miccosukee coronary artery of miccosukee heart without angina pectoris I25.10 Severe aortic stenosis by prior echocardiogram I35.0 Degenerative disc disease, cervical M50.30 PAD (peripheral artery disease) ([facility]) I73.9 Iron deficiency anemia D50.9 Lumbar degenerative disc disease M51.36 Lumbar spinal stenosis M48.061 Gastroesophageal reflux disease without esophagitis K21.9 Essential hypertension with goal blood pressure less than 140/90 I10 Cervical spinal stenosis M48.02 Drug-induced constipation K59.03 MEDICATION USE AGREEMENT [id number] Carotid stenosis, non-symptomatic, bilateral I65.23 COPD, mild ([facility]) J44.9 Vaginal atrophy N95.2 Kyphosis M40.209 History of colon polyps Z86.010 Other proteinuria R80.8 B12 deficiency E53.8 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.9 Dysphagia R13.10 Hypertensive kidney disease with stage 3b chronic kidney disease I12.9, N18.32 Chronic sialoadenitis K11.23 Thyroid nodule E04.1 Chronic kidney disease, stage 3b (HCC) N18.32 Chronic diastolic heart failure (HCC) I50.32 Encounter for long-term (current) use of medications Z79.899 S/P primary angioplasty with coronary stent Z95.5 Past Medical History: Diagnosis Date Anemia 10/01/2013 [...] Chronic coronary artery disease 05/20/2013 COPD, mild (HCC) 03/31/2013 Degeneration of lumbosacral intervertebral disc 2000 [...] below 140/90 04/18/2010 Inflammation of sacroiliac joint ([facility]) 09/15/2011 Iron deficiency anemia 03/15/2015 Irritable bowel syndrome Kidney disease, chronic, stage III (GFR 30-59 ml/min) ([facility]) 03/31/2013 Knee joint replacement status 11-24-13 left knee Lumbago 11/21/2010 Lumbar degenerative disc disease 06/29/2015 Lumbar spinal stenosis 06/29/2015 LUMBOSACRAL NEURITIS NOS 03/08/2011 Mitral valve prolapse MYALGIA AND MYOSITIS NOS 01/05/2011 NONALLERGIC RHINITIS 04/29/2004 OCCIPITAL NEURALGIA 01/05/2011 Osteoporosis 05/13/2010 Other chest pain non cardiac Other chronic sinusitis recurrent sinusitis PAD (peripheral artery disease) ([facility]) 03/03/2015 Periumbilical hernia Popliteal synovial cyst R leg Precordial pain noncardiac. Normal cardiac cath 1991 Pulmonary hypertension ([facility]) artery PVD (peripheral vascular disease) ([facility]) Reflux esophagitis RESPIRATORY ABNORM NEC [...] CT) performed by [facility] ARTHROPLASTY KNEE TOTAL 11-24-13 dr rodriguez left knee CARDIAC ANGIOPLASTY, PERCUTANEOUS, 1 ARTERY Left 07/27/2022 PTCA, CARDIAC ANGIOPLASTY, PERCUTANEOUS, 1 ARTERY performed by Yoli Rocha MD at [facility]S [facility] CARPAL TUNNEL SURGERY 08/05/08 right CATHETERIZE LEFT HEART THRU SKIN 1991 Cardiac Catheterization, Left Heart, was normal [facility] COLONOSCOPY W/ BIOPSY (RECTUM) 06/08/2008 hyperplastic polyp--repeat 10 years COLONOSCOPY, DIAGNOSTIC (RECTUM) 04/14/2015 adenomatous polyp, melanosis, repeat 5 yrs/[facility] CORONARY ANGIOGRAPHY W/RIGHT+LEFT CATH N/A 01/08/2019 CORONARY ANGIOGRAPHY W/RIGHT+LEFT CATH performed by Shyam Son MD at [facility] CORONARY ANGIOGRAPHY W/RIGHT+LEFT CATH Right 05/31/2022 CORONARY ANGIOGRAPHY W/RIGHT+LEFT CATH performed by Yoli Rocha MD at [facility] CV STRESS TREADMILL 04/20/06 abnormal myocardial images [...] DIAGNOSTIC performed by Ricky Rogers MD at [facility] EGD, FLEXIBLE, DIAGNOSTIC 03/08/2015 Barretts, HH/inpt [facility] EGD, FLEXIBLE, DIAGNOSTIC 06/12/2017 Barretts, hiatal hernia, repeat 2 yrs/[facility] EGD, FLEXIBLE, DIAGNOSTIC 07/07/2019 normal / [facility] EGD, FLEXIBLE, TRANSENDOSCOPIC DILATION <30MM 02/19/09 done mild esophagitis, possible short segment barretts, small hiatal hernia,few polyps in stomach path pending EGD, FLEXIBLE, W/BIOPSY 08/31/[address] EGD, FLEXIBLE, W/BIOPSY 02/19/09 done acid reflux EGD, FLEXIBLE, W/BIOPSY 05/06/10 biopsies--Barretts esophagitis--repeat 2 years EGD, W/ENDOSCOPIC US 04/10/2012 UPPER GI ENDOSCOPY ENDOSCOPIC ULTRASOUND performed by Gilmar Soler MD at [facility] FLUORO BARIUM ENEMA W AIR normal PAH LAPAROSCOPY, CHOLECYSTECTOMY WITH CHOLANGIOGRAPHY 06/12/12 Lap radha, with cholangiogram, lysis of abdominal adhesions, incisional hernia repair with atrium mesh 06/12/[address] [facility] LYSIS OF LABIAL LESIONS N/A 12/23/2015 LYSIS OF LABIAL ADHESIONS performed by Jordan Rodriguez MD at OR [facility] MAMMOGRAM SCREENING-BILATERAL 01/26/06 stable microcalcifications on left, category 2 benign MOBILE DXA 12/03/2017 Femur T -2.4, fx risk 15%/4.2%, high risk, treatment recommended REMOVAL OF APPENDIX 1947 Appendectomy REMOVAL OF OVARY(S) 1986 Oophrectomy,Uni/Bilat REPAIR UMBILICAL HERNIA, UNDER 5 YR Hernia,Umbilical SACROILIAC JOINT INJECT W/GUIDANCE 06/09/2019 INJECTION SACROILIAC JOINT performed by He Simons, DO at OR [facility] SIGMOIDOSCOPY, DIAGNOSTIC negative Dr. Bowen VAGINAL HYSTERECTOMY 1986 Hysterectomy, Vaginal VASC DUPLEX CAROTID BILAT 06/29/08 16-49% LICA and TAE XR TMJ BILATERAL 10/20/09 Advanced range degenerative narrowing in the medial compartment Family History Problem Relation Age of Onset Cancer Father unknown type Cancer Grandmother (Paternal) stomach Diabetes Father Heart Disorder Mother CABG age 50'5 Hypertension Father Hypertension Sister Neurological Disorder Mother Alzheimers Arthritis Father crippled with arthritis Arthritis Sister Arthritis Sister Arthritis Brother Social History Socioeconomic History Marital status: Spouse name: Gilmar Number of children: 3 Years of education: Not on file Highest education level: Not on file Occupational History Occupation: [employer] Comment: retired Tobacco Use Smoking status: Former Current packs/day: 0.00 Average packs/day: 3.0 packs/day for 30.0 years (90.0 ttl pk-yrs) Types: Cigarettes Start date: 10/24/1948 Quit date: 10/24/1976 Years since quittin.9 Smokeless tobacco: Never Tobacco comments: quit 1988 Vaping Use Vaping Use: Never used Substance and Sexual Activity Alcohol use: No Comment: rarely Drug use: No Sexual activity: Yes Partners: Male Other Topics Concern Service No Blood Transfusions Yes Caffeine Concern Not Asked Occupational Exposure No Hobby Hazards No Sleep Concern Not Asked Stress Concern Yes Weight Concern Yes Special Diet Yes Back Care Not Asked Exercise Not Asked Bike Helmet Not Asked Seat Belt Yes Self-Exams Not Asked Social History Narrative [employer] INFORMATION ENIVIRONMENTAL HISTORY: House: [place] Type of Heating System: Oil and Forced air Air Conditioning: Yes Central Basement: Unfinished, Dampness and No evidence mold, mildew Home have cockroaches: No Irritants in the home: None Patient's bedroom: FLOOR: first TYPE OF JESSICA: Carpeting Beds: AMOUNT : 1 TYPE OF BEDS: Mattress Pillows: AMOUNT: 1 TYPE OF PILLOWS: Foam Bedroom contains: Stuffed animals and Collectibles (darya nacs) Pets: none Lives on a farm: No 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 Entered By: Ej Rodney MD 04/29/2004 Social Determinants of Health Financial Resource Strain: Not on file Food Insecurity: No Food Insecurity (10/29/2019) Hunger Vital Sign Worried About Running Out of Food in the Last Year: Never true Ran Out of Food in the Last Year: Never true Transportation Needs: Not on file Physical Activity: Not on file Stress: Not on file Social Connections: Not on file Intimate Partner Violence: Not on file Housing Stability: Not on file REVIEW OF SYSTEMS: Constitutional: Denies fever/chills. Eyes: Denies amaurosis fugax. Ear, Nose, Throat and Mouth: Reports trouble swallowing with h/o esophageal dilatation. Cardiovascular: Denies UT, denies CHF, denies palpitations Respiratory: Denies shortness of breath, denies PERDUE. Gastrointestinal: Denies melena, denies bright red blood per rectum. Genitourinary: Denies hematuria. Musculoskeletal: Reports arthritis, reports chronic low back pain. Chronic neck pain Neurological: Denies TIA, denies CVA, denies amaurosis fugax. Endocrine: Denies NIDDM, denies IDDM, denies thyroid disease, reports hyperlipidemia. Hematologic: Denies blood clotting problems, reports anemia. GENERAL MULTI-SYSTEM PHYSICAL EXAM: GENERAL: Normal grooming habits, no acute distress and appears stated age. NECK: No masses. RESPIRATORY: respiratory effort normal and nl BS CARDIOVASCULAR: RRR, IV/ pansystolic murmur, BLE edema, taco of feet GASTROINTESTINAL: no tenderness, obese and abdominal aorta not palpable. LYMPHATIC: cervical lymph nodes normal SKIN: no ulcers, no rash, no induration, capillary refill normal and no dependent rubor. PSYCHIATRIC: orientation to time, place and person normal and recent and remote memory normal. EYES: conjunctivae normal, eye lids normal, and irises normal. NEUROLOGIC: Cranial nerves intact and Motor function intact PULSE SCALE: Carotid Right:----Bruit: Transmitted cardiac murmur Left:----Bruit: Transmitted cardiac murmur Radial Right: 3 Left: 3 Femoral Right: 3 Left: 0 Popliteal Right: 2 Left: 0 Dorsalis Pedis Right: 2 Left: 0 Posterior Tibial Right: 0 Left: 0 PULSE SCALE: 4=Aneurysmal; 3=Normal; 2=Diminished; 1=Barely Palpable; 0=Absent DIAGNOSTIC STUDIES: 09/10/23 VICENTA: MC/MC, strong biphasic waveforms B/L 09/10/23 Carotid Duplex: TAE 160/18, LICA 158/26, R vert UI, RSCA patent, ante L vert, LSCA patent The above diagnostic images were directly visualized and independently interpreted by me on 09/19/2023 with results as above 09/06/2022 VICENTA: 0.94/0.54 08/31/2022 Carotid Duplex: TAE 196/29, LICA 118/15, verts ante 08/10/2020 Carotid Duplex TAE 170/22 and LICA 140/16. 08/10/2020 VICENTA .79/.45. Waveforms suggest mild RLE and mod LLE PAD. 08/20/19: VICENTA: .82/.52 06/10: Carotid duplex: TAE 141/18, LICA 153/15 11/29/17: VICENTA: 0.8/0.45 11/29/17: LLE Duplex: GUME 51, LCFA 86, LDFA 85, LSFA 80, L-pop 55, L-tib/per 51, L-at 36, L-pt 53 11/29/17: Carotid Duplex: TAE 141/18, LICA 153/15 10/05/2017 exercise doppler right .91 at rest/.76 with exercise left .56 at rest/.54 with exercise 03/02/2015 ([facility]) VICENTA .78/.40. 03/02/2015 ([facility]) Venous Duplex No DVT. 03/02/2015 ([facility]) CT Abd/Pel Reports suggest extensive atherosclerosis with aortoiliac narrowing. 01/02/2013 Carotid Duplex TAE 137/23 and LICA 197/45. LABS Results for orders placed or performed in visit on 09/14/23 CBC Result Value Ref Range WBC 5.69 4.00 - 10.80 K/uL RBC 3.32 3.85 - 5.15 M/uL HGB 10.0 (L) 12.0 - 15.3 g/dL HCT 31.7 (L) 36.0 - 45.2 % MCV 95.5 81.5 - 97.5 fL MCH 30.1 27.0 - 34.0 pg MCHC 31.5 32.0 - 36.0 g/dL RDW 14.9 11.5 - 15.5 % PLT 201 140 - 400 K/uL MPV 10.5 6.6 - 11.1 fL TSH WITH FREE T4 IF INDICATED Result Value Ref Range TSH 1.98 0.27 - 4.20 uIU/mL COMPREHENSIVE METABOLIC PANEL Result Value Ref Range BUN 54 (H) 6 - 20 mg/dL Creatinine 1.9 (H) 0.5 - 1.0 mg/dL Estimated Glomerular Filtration Rate 26 (L) >=60 mL/min Sodium 142 135 - 146 mmol/L Potassium 4.7 3.5 - 5.1 mmol/L Chloride 105 98 - 107 mmol/L CO2 23 22 - 32 mmol/L Anion Gap 14 7 - 15 mmol/L Glucose 101 70 - 120 mg/dL Albumin 4.0 3.8 - 5.0 g/dL AST 25 10 - 35 U/L Alkaline Phosphatase 67 35 - 130 U/L Bilirubin, Total 0.5 <=1.2 mg/dL Calcium 9.3 8.4 - 10.2 mg/dL Protein 6.7 6.0 - 8.3 g/dL ALT 14 10 - 35 U/L LIPID PANEL WITH DIRECT LDL IF TG IS HIGH Result Value Ref Range Triglycerides 101 <=174 mg/dL Cholesterol 133 <200 mg/dL HDL Cholesterol 49 (L) >49 mg/dL Non-HDL Cholesterol 84 <=159 mg/dL LDL Cholesterol 64 <=129 mg/dL 25-HYDROXY VITAMIN D Result Value Ref Range 25-Hydroxy Vitamin D 88 >19 ng/mL MAGNESIUM Result Value Ref Range Magnesium 2.0 1.5 - 2.6 mg/dL VITAMIN B12 Result Value Ref Range Vitamin B12 >2,000 (H) 232 - 1,245 pg/mL FERRITIN Result Value Ref Range Ferritin 75 13 - 150 ng/mL IRON SCREEN, INCLUDING TIBC Result Value Ref Range Iron 67 33 - 151 ug/dL Iron Binding Capacity 299 250 - 425 ug/dL Transferrin Saturation Percent 22 15 - 55 % *Note: Due to a large number of results and/or encounters for the requested time period, some results have not been displayed. A complete set of results can be found in Results Review. The above clinical lab tests were reviewed by me on 09/19/2023. IMPRESSIONS: Asymptomatic bilateral internal carotid artery stenosis, less than 50%, stable. PAD without classic vasculogenic claudication, rest pain or ulcerations. Prior imaging and physical exam would suggest aortoiliac disease component. Severe Aortic Valve Stenosis, undergoing W/U with TAVR clinic @ [facility]. She has F/U with Cardiologynext week, on 09/28/23 CAD, s/p left main LU placement Jul 2022 @ [facility] Chronic pain syndrome H/O rheumatic fever as a child. HTN. Dyslipidemia. Reformed smoker. COPD. CKD IIIb Osteoarthritis of the spine and extremities. H/O of hiatal hernia and Chawla's Esophgus. Dysphagia w/ globus sensation. [facility]. Recommended to have EGD w/ possible dilation, delayed pending need to have uninterrupted Plavix for 1 yr, following 07/2022 left main LU IBS. Anemia. PLAN: The patient was counseled regarding the pathophysiology and natural history of carotid disease, as well as the symptoms of CVA/TIA/amaurosis fugax. Asymptomatic carotid stenosis below threshold for intervention. Continue medical management and routine surveillance. The patient was counseled regarding the pathophysiology and natural history of peripheral vascular disease, as well as the interventional and noninterventional therapeutic options. She has multifactorial BLE pain Continue daily ASA 81 mg for arteriosclerosis, stent patency, CAD and PAD Finished 1 yr of post-PCI Plavix last month, Jul 2023 Continue daily Lipitor 40 mg for dyslipidemia F/U in 1 year at [facility], or sooner prn. Will need repeat VIECNTA and carotid duplex completed at [facility] prior to clinic visit. The patient was seen and examined with Michael Hernandez MD. Olu Kitchen PA-C I have reviewed the advanced practitioner's documentation on the date of service referenced in note, and I agree with, and take responsibility for the plan of care. Stable carotid and PAD Due to AI/ with SOB and chest pain she is unable to ambulate to point of claudication. Does have follow up with cardiology to discuss TAVR now that she is a year out from left main PCI Does have BLE edema secondary to her cardiac status - recommended compression Will see her back in one year with repeat studies Michael Hernandez MD Section of Vascular and [place] [address] [phone] documented in this encounter Nursing Notes * Johanna Gruber LPN - 09/19/2023 10:50 AM EST Patient identified by name and date of . Chief Complaint Patient presents with Follow Up Carotid stenosis, documented in this encounter Plan of Treatment Upcoming Encounters Date Type Department Care Team (Late st Contact Info) Description 09/25/2023 2:30 PM EST Cardiac Studies Cardiac Studies [address] [place] [phone] 09/28/2023 3:30 PM EST Office Visit Cardiology, [facility] [address] [place] [address] Pricilla Morse CRNP [address] [place] [phone] 04/23/2024 3:10 PM EDT Office Visit Family Medicine [address] [place] [phone] Jazzy Appiah[address] [place] [address] Scheduled Orders Name Type Priority Associated Diagnoses Orde r Schedule VASC ANKLE BRACHIAL INDICES WITHOUT PPG (PAD) Medical Imaging Routine Carotid stenosis, non-symptomatic, bilateral PAD (peripheral artery disease) (HCC) Ordered: 09/19/2023 VAS DUPLEX CAROTID BILAT Medical Imaging Routine Carotid stenosis, non-symptomatic, bilateral PAD (peripheral artery disease) (HCC) Ordered: 09/19/2023 Health Maintenance Due Date Last Done Comments Alpha-1 Antitrypsin 1961 Zoster Vaccines (1 of 2) 1993 DXA Scan 12/04/2020 12/04/2017, 07/24, 07/21/2010, Additional history exists Depression Screening 01/20/2022 01/20/2021 COVID-19 Vaccine ( season) 2023 11/20/2020, 10/26/2020 Chawla's Esophagus Surveilance 04/09/2023 04/09/2020, 07/07/2019, 04/10/2012, Additional history exists *NEPHROLOGY REFERRAL DUE TO RESISTANT HTN 09/16/2023 CKD PHOS USE SMARTSET 09146 11/23/2023 05/0 09/2022, 11/18/2021, 11/02/2020, Additional history exists Albumin/Creatinine Ratio 03/06/2024 023, 05/23/2022, 08/15/2021, Additional history exists GFR 03/14/2024 09/14/2023, 03/24, 03/14/2023, Additional history exists CKD HGB USE SMARTSET 43369 09/14/202409/14, 03/06/2023, 03/06/2023, Additional history exists O2 [...] this encounter Medical Devices Implanted Type Area Soiled Linen Distributor Device Identifier Shelf Expiration Date Model / Serial / Lot Cath Thermodilution 6fr - [id number] Implanted:Qty: 1 on 05/31/2022 by Yoli Rocha MD at [facility] [employer] SEBASTIAN [id number] 01/30/2024 [id number] / / [id number] Stent Synergy Xd Mr [id number] - [id number] Implanted:Qty: 1 on 07/27/2022 by Yoli Rocha MD at [facility] [employer] 11/08/2023 [id number] / / [id number] documented as of this encounter Visit Diagnoses Diagnosis Carotid stenosis, non-symptomatic, bilateral- Primary PAD (peripheral artery disease) (HCC) Peripheral vascular disease, unspecified documented in this encounter Advance Directives Latest Code Status on File Code Status Date Activated Date Inactivated Comments Full Code 07/27/2022 12:56 PM 07/28/2022 1:52 PM This o rder reflects the patients wishes and were consensually agreed upon. Question Answer Comments Discussion of Advance Directives occurred with: Not Discussed due to patient's condition Care Teams Manager Educational Relationship Specialty Start Date End Date Jazzy Appiah DO [address] [place] [address] HOME [place] [phone] PCP - General Internal Medicine 03/12/17 documented as of this encounter
--- OUTSIDE RECORDS SUMMARY | 2023-10-07 14:33 | External Medical Summary ---
Author Name Unknown Address Unknown Organization K01:[facility] [place] [address] [place] [address] Laboratory Report Ordering Provider Test Date Status DI BELLO 09/21/2023 12:52:41 Final Observation Date Value Abnormality Reference (Units ) Status BUN 09/21/2023 12:52:41 48 Above high normal 6-20 (mg/dL) Final Creatinine 09/21/2023 12:52:41 2.0 Above high normal 0.5-1.0 (mg/dL) Final Glomerular filtration rate/1.73 sq M.predicted [Volume Rate/Area] in Serum, Plasma or Blood by Creatinine-based formula (CKD-EPI) 09/21/2023 12:52:41 25 Below low normal >=60 (mL/min) Final eGFR is calculated based on the CKD-EPI 2020 equation SODIUM 09/21/2023 12:52:41 135 135-146 (m mol/L) Final Potassium 09/21/2023 12:52:41 4.8 3.5-5.1 (m mol/L) Final Cl 09/21/2023 12:52:41 99 98-107 (mm ol/L) Final CO2 09/21/2023 12:52:41 24 22-32 (mmo l/L) Final Anion gap 09/21/2023 12:52:41 12 7-15 (mmol /L) Final Glucose 09/21/2023 12:52:41 100 70-120 (mg /dL) Final Calcium 09/21/2023 12:52:41 9.3 8.4-10.2 ( mg/dL) Final Performing Location [facility] [place] [address] [place] [address]
--- OUTSIDE RECORDS SUMMARY | 2023-10-07 14:33 | External Medical Summary | Summary of Care ---
Author Name Unknown Organization [facility] Address [address] [place] [address] Phone [phone] Care Team Providers Care Director Industrial Name Role Phone Jazzy Appiah DO Primary Care Provider [phone] Encounter Details Date Type Department Care Team (Late st Contact Info) Description 10/01/2023 New Patient Triage (PARKING WORKER USE ONLY) CR[facility], Cardiac Recovery Suite, [facility] [address] [place] [address] Mindi Dent, RN Allergies Active Allergy Reactions Criticality Noted Date Comments Ramipril Unknown Low 01/08/2014 Gabapentin Edema Other Medium 03/30/2011 Attempted x 3 with resultant fatigue and peripheral edema Oxycodone 06/09/2019 Makes me go crazy documented as of this encounter (statuses as of 10/01/2023) Medications Medication Sig Dispensed Refills Start Date [...] disease unspecified,Mitral valve disease,Coronary artery disease involving [place] coronary artery of [place] heart without angina pectoris,S/P primary angioplasty with coronary stent,Chronic heart failure with preserved ejection fraction (HCC),HTN, goal below 140/90,Dyslipidemia, goal LDL below 70 Take 1 Tablet by mouth in the morning. 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 02/28/2012 GENERAL OSTEOARTHROSIS Hiatal hernia documented as of this encounter (statuses as of 10/01/2023) Resolved Problems Problem Noted Date Diagnosed Date Resolved Date Hypertensive kidney disease with chronic kidney disease stage III 11/04/2018 06/03/2020 Overview: Per CKD protocol Carpal tunnel syndrome of left wrist 11/11/2015 09/18/2017 Tubular adenoma of colon 04/14/2015 Benign esophageal stricture 03/15/2015 09/18/2017 MEDICATION USE AGREEMENT 08/21/2014 Overview: Signed 08/21/2014 Nazanin Mayfield MD [facility] backup Anemia 10/01/2013 04/08/2015 COPD, [...] as of this encounter (statuses as of 10/01/2023) Immunizations Name Administration Dates Next Due COVID-19 mRNA, LNP-s, No Pre serve, 2-Dose Series (X5 Group) 11/20/2020,10/26/2020 Pneumococcal Conjugate Vacc, 13 Valent (Prevnar) [...] as of this encounter Progress Notes * Mindi Dent, RN - 10/01/2023 2:33 PM EDT New Patient Triage What is the diagnosis/reason for referral?: Aortic Stenosis Enter order ID here: [id number] Specialty specific documentation: Cardiology Structural Heart Please see multidisciplinary follow up note [facility] [place] Interventional Valve Nurse Navigator documented in this encounter Plan of Treatment Upcoming Encounters Date Type Department Care Team (Late st Contact Info) Description 10/19/2023 10:30 AM EDT Office Visit Cardiology, [facility] [address] [facility] [place] [address] Pricilla Morse CRNP [address] [facility] [place] [address] 12/13/2023 2:30 PM EDT Cardiac Studies Cardiac Studies, [facility] [address] [facility] [place] [address] 04/23/2024 3:10 PM EDT Office Visit Family Medicine [address] [place] [phone] Jazzy Appiah [address] [place] [address] Scheduled Orders Name Type Priority Associated Diagnoses [...] RESISTANT HTN 09/16/2023 CKD PHOS USE SMARTSET 45053 11/23/2023 05/0 09/2022, 11/18/2021, 11/02/2020, Additional history exists Albumin/Creatinine Ratio 03/06/2024 023, 05/23/2022, 08/15/2021, Additional history exists GFR 03/23/2024 09/21/2023, 08/24, 04/13/2023, Additional history exists CKD HGB USE SMARTSET 37717 09/14/202409/14, 03/06/2023, 03/06/2023, Additional history exists O2 [...] this encounter Medical Devices Implanted Type Area Sap Pi Architect Device Identifier Shelf Expiration Date Model / Serial / Lot Cath Thermodilution 6fr - [id number] Implanted:Qty: 1 on 05/31/2022 by Yoli Rocha MD at [facility] [employer] [id number] 01/30/2024 [id number] / / [id number] Stent Synergy Xd Mr [id number] - [id number] Implanted:Qty: 1 on 07/27/2022 by Yoli Rocha MD at [facility] [employer] 11/08/2023 [id number] / / [id number] documented as of this encounter Visit Diagnoses [...] due to patient's condition Care Teams Director Industrial Relationship Specialty Start Date End Date Jazzy Appiah DO [address] [place] [address] [place] [address] PCP - General Internal Medicine 03/12/17 documented as of this encounter
--- OUTSIDE RECORDS SUMMARY | 2023-10-07 14:33 | External Medical Summary | Summary of Care ---
Author Name Unknown Organization [facility] Address [address] [facility] [place] [address] Phone [phone] Care Team Providers Care Forestry Consultant Name Role Phone Jazzy Appiah DO Primary Care Provider [phone] Reason for Visit * Reason Onset Date Comments Test Results 09/24/2023 Encounter Details Date Type Department Care Team (Late st Contact Info) Description 09/24/2023 Telephone Cardiology, [facility] [address] [place] [address] Pricilla Morse CRNP [address] [place] [address] Test Results Allergies Active Allergy Reactions Criticality Noted Date Comments Ramipril Unknown Low 01/08/2014 Gabapentin Edema Other Medium 03/30/2011 Attempted x 3 with resultant fatigue and peripheral edema Oxycodone 06/09/2019 Makes me go crazy documented as of this encounter (statuses as of 09/25/2023) Medications Medication Sig Dispensed Refills Start Date [...] as of this encounter (statuses as of 09/25/2023) Active Problems Problem Noted Date Diagnosed Date [...] 0 10/01/2013 Coronary artery disease invo lving [place] coronary artery of [place] heart without angina pectoris 05/20/2013 Hyperlipidemia with target LDL less than 70 08/23 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 02/28/2012 GENERAL OSTEOARTHROSIS Hiatal hernia documented as of this encounter (statuses as of 09/25/2023) Resolved Problems Problem Noted Date Diagnosed Date Resolved Date Hypertensive kidney disease with chronic kidney disease stage III 11/04/2018 06/03/2020 Overview: Per CKD protocol Carpal tunnel syndrome of left wrist 11/11/2015 09/18/2017 Tubular adenoma of colon 04/14/2015 Benign esophageal stricture 03/15/2015 09/18/2017 MEDICATION USE AGREEMENT 08/21/2014 Overview: Signed 08/21/2014 Nazanin Mayfield MD [facility] as backup Anemia 10/01/2013 04/08/2015 COPD, mild [...] as of this encounter (statuses as of 09/25/2023) Immunizations Name Administration Dates Next Due COVID-19 [...] shopping? (15 years old or older) No 01/05/20 23 Cognitive Status Response Date of Assessm ent Because of a physical, menta l, or emotional condition, do you have serious difficulty concentrating, remembering, or making decisions? (5 years old or older) No 07/27/2022 documented as of this encounter Miscellaneous Notes * Telephone Encounter - Maile Stephens OSA - 09/25/2023 1:44 PM EST Unable to schedule with nephrology. Please call Pt to schedule. * Telephone Encounter - Moose Loza RN - 09/25/2023 1:04 PM EST Called and spoke to the patient and reviewed the message with her from Adela Lopez. The patient wants to know if she should keep taking the extra medications as directed from Adela. She also wants to know when her appointment with Nephrology will be scheduled. * Telephone Encounter - Moose Loza RN - 09/25/2023 1:04 PM EST ----- Message from Adela Loepz PA-C sent at 09/24/2023 3:40 PM EST ----- Mildly worsened kidney function, but overall stable. Nephrology referral already placed. Recommend to continue current medications, can discuss further at upcoming appointment this week. * Telephone Encounter - Donna Leavitt OSA - 09/24/2023 9:11 AM EST Person calling: Georgina Relationship to patient: self Number to return call: [phone] Reason for call: Patient called requesting a call back in regards to lab results from Sunday. Please advise. Pharmacy: N/A Provider Name:Pricilla Morse documented in this encounter Plan of Treatment Upcoming Encounters Date Type Department Care Team (Late st Contact Info) Description 09/25/2023 2:30 PM EST Cardiac Studies Cardiac Studies [address] [place] [address] 09/28/2023 3:30 PM EST Office Visit Cardiology, [facility] [address] [place] [address] Pricilla Morse CRNP [address] [place] [address] 04/23/2024 3:10 PM EDT Office Visit Family Medicine [address] [place] [phone] [place] [address] Health Maintenance Due Date Last Done Comments Alpha-1 Antitrypsin 1961 Zoster Vaccines (1 of 2) 1993 DXA Scan 12/04/2020 12/04/2017, 07/24, 07/21/2010, Additional history exists Depression Screening 01/20/2022 01/20/2021 COVID-19 Vaccine ( season) 2023 11/20/2020, 10/26/2020 Chawla's Esophagus Surveilance 04/09/2023 04/09/2020, 07/07/2019, 04/10/2012, Additional history exists *NEPHROLOGY REFERRAL DUE TO RESISTANT HTN 09/16/2023 CKD PHOS USE SMARTSET 78135 11/23/2023 05/0 09/2022, 11/18/2021, 11/02/2020, Additional history exists Albumin/Creatinine Ratio 03/06/2024 023, 05/23/2022, 08/15/2021, Additional history exists GFR 03/23/2024 09/21/2023, 08/24, 04/13/2023, Additional history exists CKD HGB USE SMARTSET 99668 09/14/202409/14, 03/06/2023, 03/06/2023, Additional history exists O2 [...] this encounter Medical Devices Implanted Type Area Automobile Tester Device Identifier Shelf Expiration Date Model / Serial / Lot Cath Thermodilution 6fr - [id number] Implanted:Qty: 1 on 05/31/2022 by Yoli Rocha MD at [facility] [employer] [id number] 01/30/2024 [id number] / / [id number] Stent Synergy Xd Mr [id number] - [id number] Implanted:Qty: 1 on 07/27/2022 by Yoli Rocha MD at [facility] [employer] 11/08/2023 [id number] / / [id number] documented as of this encounter Advance Directives Latest Code Status on File Code Status Date Activated Date Inactivated Comments Full Code 07/27/2022 12:56 PM 07/28/2022 1:52 PM This o rder reflects the patients wishes and were consensually agreed upon. Question Answer Comments Discussion of [place] Directives occurred with: Not Discussed due to patient's condition Care Teams Forestry Consultant Relationship Specialty Start Date End Date Jazzy Appiah DO [address] [place] [address] [place] [address] PCP - General Internal Medicine 03/12/17 documented as of this encounter
--- OUTSIDE RECORDS SUMMARY | 2023-10-07 14:33 | External Medical Summary | Summary of Care ---
Author Name Unknown Organization [facility] Address [address] [facility] [place] [address] Phone [phone] Care Team Providers Care String Cutter Name Role Phone Jazzy Appiah DO Primary Care Provider [phone] Reason for Referral * Evaluate & Treat - Unlimited Visits (Within 10 days (routine)) - Authorized Specialty Diagnoses / Procedures Referred By Viv apodaca Referred To Contact Nephrology Diagnoses Stage 3b chronic kidney disease (HCC) Adela Lopez PA-C [address] [place] [address] Referral ID Status Reason Start Date Expiration Date Visits Requested Visits Authorized [id number] Authorized Specialty Services Required 09/17/[phone] Question Answer Referral Priority Within 10 days (routine) Where should this appointment be scheduled? [facility] What condition is this patient being seen for? Chronic kidney disease Reason for Visit * Reason Onset Date Comments Test Results 09/17/2023 Encounter Details Date Type Department Care Team (Late st Contact Info) Description 09/17/2023 Telephone Cardiology [facility] [address] [place] [address] Adela Lopez PA-C [address] [place] [address] Test Results Allergies Active Allergy Reactions Criticality [...] 10/06/2022 Active Torsemide 10 MG Oral Tablet (Demadex)Indication [...] the morning. 30 Tablet 5 09/18/2023 Active Spironolactone 25 MG Oral Tablet (Aldactone) Take 0.5 Tablets by mouth in the morning. 30 Tablet 5 09/17/2023 09/18/19 24 Discontinu ed(Refill) documented as of this [...] 0 10/01/2013 Coronary artery disease invo lving [place] coronary artery of [place] heart without angina pectoris 05/20/2013 Hyperlipidemia with [...] 08/21/2014 Overview: Signed 08/21/2014 Nazanin Mayfield MD [facility] as backup Anemia 10/01/2013 04/08/2015 COPD, mild [...] as of this encounter Miscellaneous Notes * Addendum Note - Nadine Bowles RPh - 09/18/2023 4:20 PM ESTAddended by: NADINE BOWLES on: 09/18/2023 04:20 PM Modules accepted: Orders * Addendum Note - Azra Geiger street worker - 09/18/2023 4:14 PM ESTAddended by: AZRA GEIGER on: 09/18/2023 04:14 PM Modules accepted: Orders * Telephone Encounter - Azra Geiger street worker - 09/18/2023 4:13 PM EST Please reroute Rx to [facility] [address] [place] [address]. Pending Prescriptions: Disp Refills Spironolactone 25 MG Oral Tablet (Aldacto*30 Tab*5 Sig: Take 0.5 Tablets by mouth in the morning. Last Visit: Visit date not found (in office), Visit date not found (telemedicine) Visit date not found If no future appointments scheduled, and last appointment is greater than a year ago, please schedule patient for a follow-up appointment Last date the medication was ordered: 09/17/2023 Patient Phone Numbers Labs: Lab Results Component Value Date/Time CREAT 1.9 (H) 09/14/2023 11:22 AM CREAT 1.2 (H) 05/18/2020 11:22 AM POTASSIUM 4.7 09/14/2023 11:22 AM POTASSIUM 4.5 05/31/2022 11:17 AM POTASSIUM 4.5 05/18/2020 11:22 AM TSH 1.98 09/14/2023 11:22 AM TSH 2.19 03/19/2015 09:40 AM LDLCALC 64 09/14/2023 11:22 AM LDLCALC 80 01/29/2020 10:47 AM LDLDIRECT NOT APPLICABLE 01/29/2020 10:47 AM LDLDIRECT 98 02/08/2009 08:34 AM ALT 14 09/14/2023 11:22 AM ALT 13 01/29/2020 10:47 AM HGBA1C 5.4 07/27/2022 10:55 AM HGBA1C 5.5 02/08/2009 08:34 AM * Telephone Encounter - Adela Lopez PA-C - 09/17/2023 4:00 PM EST Labs reviewed with patient over phone. She continues to have edema. She does not want to increase torsemide. Will trial spironolactone 12.5 mg daily, repeat labs in 3-5 days. Will also refer to nephrology as patient states she has not seen them in over a year. Again reinforced low sodium diet. Scheduled for close follow up next week. documented in this encounter Plan of Treatment Upcoming Encounters Date Type Department Care Team (Late st Contact Info) Description 09/19/2023 10:30 AM EST Office Visit Vascular Surgery, [facility] [address] [facility] [place] [address] Michael Hernandez MD [address] [place] [address] 09/25/2023 2:30 PM EST Cardiac Studies Cardiac Studies [address] [place] [address] 09/28/2023 3:30 PM EST Office Visit Cardiology, [facility] [address] [facility] [place] [address] Pricilla Morse CRNP 132 [facility] [place] [address] 04/23/2024 3:10 PM EDT Office Visit Family Medicine [address] [place] [phone] Jazzy Appiah[address] [place] [address] Scheduled Orders Name Type Priority Associated Diagnoses Orde r Schedule BASIC METABOLIC PANEL Lab Routine Chronic heart failure with preserved ejection fraction (HCC) Expected: 09/24/2023, Expires: 09/17/2024 Scheduled Referrals Name Type Priority Associated Diagnoses Orde r Schedule NEPHROLOGY REFERRAL OP Referral Within 10 days (routine) Stage 3b chronic kidney disease (HCC) Ordered: 09/17/2023 Health Maintenance Due Date Last Done Comments Alpha-1 Antitrypsin 1961 Zoster Vaccines (1 of 2) 1993 DXA Scan 12/04/2020 12/04/2017, 07/24, 07/21/2010, Additional history exists Depression Screening 01/20/2022 01/20/2021 COVID-19 Vaccine ( season) 2023 11/20/2020, 10/26/2020 Chawla's Esophagus Surveilance 04/09/2023 04/09/2020, 07/07/2019, 04/10/2012, Additional history exists *NEPHROLOGY REFERRAL DUE TO RESISTANT HTN 09/16/2023 CKD PHOS USE SMARTSET 34399 11/23/2023 05/0 09/2022, 11/18/2021, 11/02/2020, Additional history exists Albumin/Creatinine Ratio 03/06/2024 023, 05/23/2022, 08/15/2021, Additional history exists GFR 03/14/2024 09/14/2023, 03/24, 03/14/2023, Additional history exists CKD HGB USE SMARTSET 96373 09/14/202409/14, 03/06/2023, 03/06/2023, Additional history exists O2 [...] this encounter Medical Devices Implanted Type Area Sweatband Shaper Device Identifier Shelf Expiration Date Model / Serial / Lot Cath Thermodilution 6fr - [id number] Implanted:Qty: 1 on 05/31/2022 by Yoli Rocha MD at [facility] [employer] [id number] 01/30/2024 [id number] / / [id number] Stent Synergy Xd Mr [id number] - [id number] Implanted:Qty: 1 on 07/27/2022 by Yoli Rocha MD at [facility] [employer] 11/08/2023 [id number] / / [id number] documented as of this encounter Visit Diagnoses Diagnosis Stage 3b chronic kidney disease (HCC)- Primary Chronic heart failure with preserved ejection fraction (HCC) documented in this encounter Advance Directives Latest Code Status on File Code Status Date Activated Date Inactivated Comments Full Code 07/27/2022 12:56 PM 07/28/2022 1:52 PM This o rder reflects the patients wishes and were consensually agreed upon. Question Answer Comments Discussion of Advance Directives occurred with: Not Discussed due to patient's condition Care Teams String Cutter Relationship Specialty Start Date End Date Jazzy Appiah DO [address] [place] [address] [place] [address] PCP - General Internal Medicine 03/12/17 documented as of this encounter
--- OUTSIDE RECORDS SUMMARY | 2023-10-07 14:33 | External Medical Summary | Summary of Care ---
Author Name Unknown Organization [facility] Address [address] [facility] [place] [address] Phone [phone] Care Team Providers Care Risk And Insurance Consultant Name Role Phone Jazzy Appiah DO Primary Care Provider [phone] Reason for Visit * Reason Comments Outpatient Testing Encounter Details Date Type Department Care Team (Late st Contact Info) Description 09/21/2023 12:50 PM EST Laboratory Laboratory [address] [place] [phone] [place] [address] Chronic heart failure with preserved ejection fraction (HCC) Allergies Active Allergy Reactions Criticality Noted Date Comments Ramipril Unknown Low 01/08/2014 Gabapentin Edema Other Medium 03/30/2011 Attempted x 3 with resultant fatigue and peripheral edema Oxycodone 06/09/2019 Makes me go crazy documented as of this encounter (statuses as of 09/21/2023) Medications Medication Sig Dispensed Refills Start Date [...] as of this encounter (statuses as of 09/21/2023) Active Problems Problem Noted Date Diagnosed Date [...] 0 10/01/2013 Coronary artery disease invo lving [place] coronary artery of [place] heart without angina pectoris 05/20/2013 Hyperlipidemia with target LDL less than 70 08/23 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 02/28/2012 GENERAL OSTEOARTHROSIS Hiatal hernia documented as of this encounter (statuses as of 09/21/2023) Resolved Problems Problem Noted Date Diagnosed Date Resolved Date Hypertensive kidney disease with chronic kidney disease stage III 11/04/2018 06/03/2020 Overview: Per CKD protocol Carpal tunnel syndrome of left wrist 11/11/2015 09/18/2017 Tubular adenoma of colon 04/14/2015 Benign esophageal stricture 03/15/2015 09/18/2017 MEDICATION USE AGREEMENT 08/21/2014 Overview: Signed 08/21/2014 Nazanin Mayfield MD [facility] as backup Anemia 10/01/2013 04/08/2015 COPD, mild [...] as of this encounter (statuses as of 09/21/2023) Immunizations Name Administration Dates Next Due COVID-19 mRNA, LNP-s, No Pre serve, 2-Dose Series (Surge [employer]) 11/20/2020,10/26/2020 Pneumococcal Conjugate Vacc, 13 Valent (Prevnar) [...] 2:30 PM EST Cardiac Studies Cardiac Studies [address] [place] [address] 09/28/2023 3:30 PM EST Office Visit Cardiology, [facility] [address] [place] [address] Pricilla Morse CRNP [address] [place] [address] 04/23/2024 3:10 PM EDT Office Visit Family Medicine [address] [place] [phone] [address] [place] [address] Pending Results Name Type Priority Associated Diagnoses Date /Time BASIC METABOLIC PANEL Lab Routine Chronic heart failure with preserved ejection fraction (HCC) 09/21/2023 12:52 PM EST Health Maintenance Due Date Last Done Comments Alpha-1 Antitrypsin 1961 Zoster Vaccines (1 of 2) 1993 DXA Scan 12/04/2020 12/04/2017, 07/24, 07/21/2010, Additional history exists Depression Screening 01/20/2022 01/20/2021 COVID-19 Vaccine ( season) 2023 11/20/2020, 10/26/2020 Chawla's Esophagus Surveilance 04/09/2023 04/09/2020, 07/07/2019, 04/10/2012, Additional history exists *NEPHROLOGY REFERRAL DUE TO RESISTANT HTN 09/16/2023 CKD PHOS USE SMARTSET 99600 11/23/2023 05/0 09/2022, 11/18/2021, 11/02/2020, Additional history exists Albumin/Creatinine Ratio 03/06/2024 023, 05/23/2022, 08/15/2021, Additional history exists GFR 03/14/2024 09/14/2023, 03/24, 03/14/2023, Additional history exists CKD HGB USE SMARTSET 98612 09/14/202409/14, 03/06/2023, 03/06/2023, Additional history exists O2 [...] this encounter Medical Devices Implanted Type Area Bet Taker Device Identifier Shelf Expiration Date Model / Serial / Lot Cath Thermodilution 6fr - [id number] Implanted:Qty: 1 on 05/31/2022 by Yoli Rocha [place] [facility] [employer] [id number] 01/30/2024 [id number] / / [id number] Stent Synergy Xd Mr [id number] - [id number] Implanted:Qty: 1 on 07/27/2022 by Yoli Rocha MD at [facility] [employer] 11/08/2023 [id number] / / [id number] documented as of this encounter Visit Diagnoses Diagnosis Chronic heart failure with preserved ejection fraction (HCC) documented in this encounter Advance Directives Latest Code Status on File Code Status Date Activated Date Inactivated Comments Full Code 07/27/2022 12:56 PM 07/28/2022 1:52 PM This o rder reflects the patients wishes and were consensually agreed upon. Question Answer Comments Discussion of Advance Directives occurred with: Not Discussed due to patient's condition Care Teams Risk And Insurance Consultant Relationship Specialty Start Date End Date Jazzy Appiah DO [address] [place] [address] [place] [address] PCP - General Internal Medicine 03/12/17 documented as of this encounter
--- OUTSIDE RECORDS SUMMARY | 2023-10-07 14:34 | External Medical Summary | Summary of Care ---
Author Name Unknown Organization [facility] Address [address] [facility] [place] [address] Phone [phone] Care Team Providers Care Assistant Technician Name Role Phone Durga Camara DO Primary Care Provider [phone] Reason for Visit * Reason Onset Date Comments Medication Refill 08/27/2023 Encounter Details Date Type Department Care Team (Late st Contact Info) Description 08/27/2023 Refill Family Medicine [address] [address] Durga Camara DO [address] [place] [address] [place] [address] GENERAL OSTEOARTHROSIS; LUMB-LUMBOSAC DISC DEGEN Allergies Active Allergy Reactions Criticality Noted Date Comments Ramipril Unknown Low 01/08/2014 Gabapentin Edema Other Medium 03/30/2011 Attempted x 3 with resultant fatigue and peripheral edema Oxycodone 06/09/2019 Makes me go crazy documented as of this encounter (statuses as of 08/27/2023) Medications Medication Sig Dispensed Refills Start Date [...] 15 minutes. 100 Tab 11 04/14/2020 Active Turmeric Curcumin 500 MG Oral Capsule Take by mouth once. 0 Active Vitamin B6 50 MG Oral Tablet [...] the morning. 180 Tablet 1 06/30/2022 Active Potassium Chloride Melissa ER 10 MEQ Oral Tablet Extended Release Take 1 Tablet by mouth in the morning. 30 Tablet 11 08/04/2022 Active Additional Information Patient not taking.Reported on 04/16/2023 hydrALAZINE HCl 50 MG Oral Tablet (Apresoline)Indicat [...] LBS OVERNIGHT 120 Tablet 3 11/20/2022 Active amLODIPine Besylate 5 MG Oral Tablet (Norvasc)Indication s:Essential hypertension with goal blood pressure less than 140/90 Take 1 Tablet by mouth in the morning. 90 Tablet 1 03/06/2023 Active Atorvastatin Calcium 20 MG Oral Tablet (Lipitor)Indication s:Hyperlipidemia with target LDL less than 70 Take 1 Tablet by mouth in the morning. 90 Tablet 1 03/06/2023 Active Clopidogrel Bisulfate 75 MG Oral Tablet (pLAVix) Take 1 Tablet by mouth in the morning. 90 Tablet 1 07/09/2023 Active Omeprazole 20 MG Oral Capsule Delayed [...] Pain, Severe. 60 Tablet 0 08/27/2023 Active HYDROcodone-Acetami nophen 10-325 MG Oral TabletIndications:G eneralized osteoarthritis,Dege neration of lumbosacral intervertebral disc Take 1 Tablet by mouth 2 times a day as needed for Pain, Severe. 60 Tablet 0 07/27/2023 08/27/19 Discontinu ed(Refill) documented as of this encounter (statuses as of 08/27/2023) Active Problems Problem Noted Date Diagnosed Date [...] 0 10/01/2013 Coronary artery disease invo lving [place] coronary artery of [place] heart without angina pectoris 05/20/2013 Hyperlipidemia with target LDL less than 70 08/23 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 02/28/2012 GENERAL OSTEOARTHROSIS Hiatal hernia documented as of this encounter (statuses as of 08/27/2023) Resolved Problems Problem Noted Date Diagnosed Date Resolved Date Hypertensive kidney disease with chronic kidney disease stage III 11/04/2018 06/03/2020 Overview: Per CKD protocol Carpal tunnel syndrome of left wrist 11/11/2015 09/18/2017 Tubular adenoma of colon 04/14/2015 Benign esophageal stricture 03/15/2015 09/18/2017 MEDICATION USE AGREEMENT 08/21/2014 Overview: Signed 08/21/2014 Nazanin Mayfield MD [facility] as backup Anemia 10/01/2013 04/08/2015 COPD, [...] as of this encounter (statuses as of 08/27/2023) Immunizations Name Administration Dates Next Due COVID-19 mRNA, LNP-s, No Pre serve, 2-Dose Series (Alea) 11/20/2020,10/26/2020 Pneumococcal Conjugate Vacc, 13 Valent (Prevnar) [...] Date Smoking Tobacco: Former Cigarettes 3 30 Q uit: 10/24/1976 Smokeless Tobacco: Never Comments:quit 1988 Alcohol [...] encounter Miscellaneous Notes * Telephone Encounter - Durga Camara DO - 08/27/2023 10:18 AM ESTSigned Prescriptions: Disp Refills HYDROcodone-Acetaminophen 10-325 MG Oral T*60 Tab*0 Sig: Take 1 Tablet by mouth 2 times a day as needed for Pain, Severe. Authorizing Provider: DURGA CAMARA * Telephone Encounter - Hanna Roberts [facility] - 08/27/2023 9:07 AM EST Pending Prescriptions: Disp Refills HYDROcodone-Acetaminophen 10-325 MG Oral T*60 Tab*0 Sig: Take 1 Tablet by mouth 2 times a day as needed for Pain, Severe. * Telephone Encounter - Hanna Robertsija, [facility] - 08/27/2023 9:06 AM EST I have reviewed the patients controlled substance dispensing history in the Prescription Drug Monitoring Program in compliance with the [facility] regulations before prescribing a controlled substance. PDMP checked on 08/27/2023. Pending Prescriptions: Disp Refills HYDROcodone-Acetaminophen 10-325 MG Oral *60 Tab*0 Sig: Take 1 Tablet by mouth 2 times a day as needed for Pain, Severe. Last Visit: 03/06/2023 (in office), Visit date not found (telemedicine) Next Visit: 09/14/2023 Date medication was last filled: 07/27 Date medication is due for refill: 08/25 Pharmacy: [facility], [address] [place] Is this request for [...] Results Review. Please approve if appropriate. Thanks, Hanna Roberts, PharmD Clinical Pharmacist [facility] ([facility]PS) (formerly Telepharmacy) [phone] 08/27/2023,9:07 AM * Telephone Encounter - Libia Cabrera CPhT - 08/27/2023 9:04 AM EST Pt requesting HIGH PRIORITY due to out of medication Did you pend patient's preferred pharmacy and medication before forwarding?yes Pharmacy: [facility], [address] [place] Pending Prescriptions: Disp Refills HYDROcodone-Acetaminophen 10-325 MG Oral *60 Tab*0 Sig: Take 1 Tablet by mouth 2 times a day as needed for Pain, Severe. Last Visit: 03/06/2023 (in office), Visit date not found (telemedicine) Next Visit: 09/14/2023 If no future appointments scheduled, and last appointment is greater than a year ago, please schedule patient for a follow-up appointment Last date the medication was ordered: 07/27/23 Is this request for a controlled substance?Yes, What was the last refill date 07/27/23 w/ quantity 60 and dosage 10-325 and Urine Drug Screen was completed Urine [...] Labs: Lab Results Component Value Date/Time CREAT 1.7 (H) 04/13/2023 10:05 AM CREAT 1.2 (H) 05/18/2020 11:22 AM POTASSIUM 5.6 (H) 04/13/2023 10:05 AM POTASSIUM 4.5 05/31/2022 11:17 AM POTASSIUM 4.5 05/18/2020 11:22 AM TSH 1.97 05/23/2022 10:12 AM TSH 2.19 03/19/2015 09:40 AM LDLCALC 67 07/27/2022 10:55 AM LDLCALC 80 01/29/2020 10:47 AM LDLDIRECT NOT APPLICABLE 01/29/2020 10:47 AM LDLDIRECT 98 02/08/2009 08:34 AM ALT 15 11/22/2022 04:03 PM ALT 13 01/29/2020 10:47 AM HGBA1C 5.4 07/27/2022 10:55 AM HGBA1C 5.5 02/08/2009 08:34 AM documented in this encounter Plan of Treatment Upcoming Encounters Date Type Department Care Team (Late st Contact Info) Description 09/10/2023 10:30 AM EST Imaging Vascular Lab, [facility] [address] [place] [address] 09/10/2023 11:30 AM EST Imaging Vascular Lab, [address] [place] [address] 09/14/2023 3:10 PM EST Office Visit Family Medicine [address] [place] [phone] Durga Camara [address] [place] [address] 09/19/2023 10:30 AM EST Office Visit Vascular Surgery, [facility] [address] [place] [address] Michael Hernandez [facility] [address] [facility] [place] [address] Health Maintenance Due Date Last Done Comments Alpha-1 Antitrypsin 1961 Zoster Vaccines (1 of 2) 1993 DXA Scan 12/04/2020 12/04/2017, 07/24, 07/21/2010, Additional history exists Depression Screening 01/20/2022 01/20/2021 COVID-19 Vaccine ( season) 2023 11/20/2020, 10/26/2020 Chawla's Esophagus Surveilance 04/09/2023 04/09/2020, 07/07/2019, 04/10/2012, Additional history exists GFR 10/12/2023 04/13/2023, 02/21, 03/06/2023, Additional history exists CKD PHOS USE SMARTSET 06150 11/23/2023 05/0 09/2022, 11/18/2021, 11/02/2020, Additional history exists Albumin/Creatinine Ratio 03/06/2024 023, 05/23/2022, 08/15/2021, Additional history exists CKD HGB USE SMARTSET 11863 03/06/202403/06, 03/06/2023, 11/22/2022, Additional history exists O2 ASSESSMENT COMPLETED IN PAST YEAR FOR COPD 03/06/2024 03/06/2023 DTaP,Tdap,and Td Vaccines (2 - Td or [...] this encounter Medical Devices Implanted Type Area Yarn Carrier Device Identifier Shelf Expiration Date Model / Serial / Lot Cath Thermodilution 6fr - [id number] Implanted:Qty: 1 on 05/31/2022 by Yoli Rocha MD at [facility] [employer] [id number] 01/30/2024 [id number] / / [id number] Stent Synergy Xd Mr [id number] - [id number] Implanted:Qty: 1 on 07/27/2022 by Yoli Rocha MD at [facility] [employer] 11/08/2023 [id number] / / [id number] documented as of this encounter Visit Diagnoses Diagnosis GENERAL OSTEOARTHROSIS Generalized osteoarthrosis, unspecified site LUMB-LUMBOSAC DISC DEGEN Degeneration of lumbar or lumbosacral intervertebral disc documented in this encounter Advance Directives Latest Code Status on File Code Status Date Activated Date Inactivated Comments Full Code 07/27/2022 12:56 PM 07/28/2022 1:52 PM This o rder reflects the patients wishes and were consensually agreed upon. Question Answer Comments Discussion of Advance Directives occurred with: Not Discussed due to patient's condition Care Teams Assistant Technician Relationship Specialty Start Date End Date Durga Camara DO [address] [place] [address] [place] [address] PCP - General Internal Medicine 03/12/17 documented as of this encounter
--- OUTSIDE RECORDS SUMMARY | 2023-10-07 14:34 | External Medical Summary ---
Author Name Unknown Address Unknown Organization K01:[facility]ORY [facility] - [address] [facility] [place] [address] Laboratory Report Ordering Provider Test Date Status DI BELLO 09/14/2023 11:22:46 Final Observation Date Value Abnormality Reference (Units ) Status BUN 09/14/2023 11:22:46 54 Above high normal 6-20 (mg/dL) Final Creatinine 09/14/2023 11:22:46 1.9 Above high normal 0.5-1.0 (mg/dL) Final Glomerular filtration rate/1.73 sq M.predicted [Volume Rate/Area] in Serum, Plasma or Blood by Creatinine-based formula (CKD-EPI) 09/14/2023 11:22:46 26 Below low normal >=60 (mL/min) Final eGFR is calculated based on the CKD-EPI 2020 equation SODIUM 09/14/2023 11:22:46 142 135-146 (m mol/L) Final Potassium 09/14/2023 11:22:46 4.7 3.5-5.1 (m mol/L) Final Cl 09/14/2023 11:22:46 105 98-107 (mm ol/L) Final CO2 09/14/2023 11:22:46 23 22-32 (mmo l/L) Final Anion gap 09/14/2023 11:22:46 14 7-15 (mmol /L) Final Glucose 09/14/2023 11:22:46 101 70-120 (mg /dL) Final Albumin 09/14/2023 11:22:46 4.0 3.8-5.0 (g /dL) Final AST (Aspartate aminotransferase) 09/14/2023 11:22:46 25 10-35 (U/L) Final Alk Phos 09/14/2023 11:22:46 67 35-130 (U/ L) Final Bilirubin, Total 09/14/2023 11:22:46 0.5 <=1 .2 (mg/dL) Final Calcium 09/14/2023 11:22:46 9.3 8.4-10.2 ( mg/dL) Final Protein 09/14/2023 11:22:46 6.7 6.0-8.3 (g /dL) Final ALT (Alanine aminotransferase) 09/14/2023 11:22:46 14 10-35 (U/L) Final Performing Location [facility]ORY [facility] - [address] [facility] [address]
--- OUTSIDE RECORDS SUMMARY | 2023-10-07 14:34 | External Medical Summary ---
Author Name Unknown Address Unknown Organization K0G:[facility]ATORY [facility] - [address] [place] [address] Laboratory Report Ordering Provider Test Date Status DI BELLO 09/14/2023 11:22:46 Final Observation Date Value Abnormality Reference (Units ) Status WBC, Total 09/14/2023 11:22:46 5.69 4.00-10.8 0 (K/uL) Final RBC 09/14/2023 11:22:46 3.32 3.85-5.15 (M/uL) Final Hemoglobin 09/14/2023 11:22:46 10.0 Below low normal 12 .0-15.3 (g/dL) Final HCT 09/14/2023 11:22:46 31.7 Below low normal 36. 0-45.2 (%) Final MCV 09/14/2023 11:22:46 95.5 81.5-97.5 (fL) Final MCH 09/14/2023 11:22:46 30.1 27.0-34.0 (pg) Final MCHC 09/14/2023 11:22:46 31.5 32.0-36.0 (g/dL) Final RDW 09/14/2023 11:22:46 14.9 11.5-15.5 (%) Final Platelets 09/14/2023 11:22:46 201 140-400 (K /uL) Final MPV 09/14/2023 11:22:46 10.5 6.6-11.1 ( fL) Final Performing Location LAB[facility]ATORY [facility] - [address] [place] [address]
--- OUTSIDE RECORDS SUMMARY | 2023-10-07 14:34 | External Medical Summary ---
Author Name Unknown Address Unknown Organization K01:[facility] [place] [address] [facility] [address] Laboratory Report Ordering Provider Test Date Status HOA CALIXTO 09/14/2023 11:22:46 Final Observation Date Value Abnormality Reference (Units ) Status Ferritin 09/14/2023 11:22:46 75 13-150 (ng /mL) Final Postmenopausal women have hi gher ferritin levels than pre-menopausal women. The above reference interval is based on pre-menopausal women. Performing Location LABORATORY [facility] - [address] [place] [address]
--- OUTSIDE RECORDS SUMMARY | 2023-10-07 14:34 | External Medical Summary ---
Author Name Unknown Address Unknown Organization K01:[facility] - [address] [facility] [address] Laboratory Report Ordering Provider Test Date Status HOA CALIXTO 09/14/2023 11:22:46 Final Observation Date Value Abnormality Reference (Units ) Status Triglyceride 09/14/2023 11:22:46 101 <=174 ( mg/dL) Final Triglyceride Reference Range s (mg/dL):
<150 Acceptable
150-174 Borderline high
175-499 High
>=500 Very high Cholesterol 09/14/2023 11:22:46 133 <200 (mg /dL) Final Total Cholesterol Reference Ranges (mg/dL):
<200 Desirable
200-239 Borderline high
>=240 High HDL 09/14/2023 11:22:46 49 Below low normal >49 (mg/dL) Final HDL Cholesterol Reference Ra nges (mg/dL):
>=60 High (Desirable)
<50 Low (Undesirable) For Females
<40 Low (Undesirable) For Males NON-HDL CHOLESTEROL 09/14/2023 11:22:46 84 <=159 (mg/dL) Final Non-HDL Cholesterol Referenc e Range (mg/dL):
<100 Target level for high risk ASCVD patient
<130 Optimal for general population
130-159 Near optimal for general population
160-189 Borderline High
190-219 High
>=220 Very High LDL, (calculated) 09/14/2023 11:22:46 64 <= 129 (mg/dL) Final LDL Cholesterol Reference Ra nges (mg/dL):
<70 Target level for high risk ASCVD patient
<100 Optimal for general population
100-129 Near optimal for general population
130-159 Borderline high
160-189 High
>=190 Very high Performing Location [facility] - [address] [facility] [address]
--- OUTSIDE RECORDS SUMMARY | 2023-10-07 14:34 | External Medical Summary | Summary of Care ---
Author Name Unknown Organization [facility] Address [address] [facility] [place] [address] Phone [phone] Care Team Providers Care Physics Technician Name Role Phone Jazzy Appiah DO Primary Care Provider [phone] Reason for Referral * Evaluate & Treat - Unlimited Visits (Within 10 days (routine)) - Authorized Specialty Diagnoses / Procedures Referred By Viv apodaca Referred To Contact Nephrology Diagnoses Stage 3b chronic kidney disease (HCC) Adela Lopez PA-C [address] [place] [address] Referral ID Status Reason Start Date Expiration Date Visits Requested Visits Authorized [id number] Authorized Specialty Services Required 09/17/2023 999 999 [...] Telephone Cardiology [facility] [address] [place] [address] Adela Lopez PA-C [address] [place] [place] [address] Test Results Allergies Active Allergy [...] in the morning. 30 Tablet 5 09/17/2023 Active documented as of this encounter (statuses [...] 0 10/01/2013 Coronary artery disease invo lving [place] coronary artery of [place] heart without angina pectoris 05/20/2013 Hyperlipidemia with [...] Overview: Signed 08/21/2014 Nazanin Mayfield MD [facility] as backup Anemia 10/01/2013 04/08/2015 COPD, mild [...] mRNA, LNP-s, No Pre serve, 2-Dose Series (Inspro) 11/20/2020,10/26/2020 Pneumococcal Conjugate Vacc, 13 Valent (Prevnar) [...] encounter Miscellaneous Notes * Addendum Note - Azra Geiger PHARM Tech - 09/18/2023 4:14 PM ESTAddended by: AZRA GEIGER on: 09/18/2023 04:14 PM Modules accepted: Orders * Telephone Encounter - Azra Geiger PHARM Tech - 09/18/2023 4:13 PM EST Please reroute Rx to [facility] [address] [place] [address]. Pending Prescriptions: Disp Refills Spironolactone 25 MG [...] 10:30 AM EST Office Visit Vascular Surgery, [facility] [address] [place] [address] Michael Hernandez MD [address] [facility] [place] [address] 09/25/2023 2:30 PM EST Cardiac Studies Cardiac Studies [address] [place] [address] 09/28/2023 3:30 PM EST Office Visit Cardiology, [facility] [address] [place] [address] Pricilla Morse CRNP [address] [place] [address] 04/23/2024 3:10 PM EDT Office Visit Family Medicine [address] [place] [phone] [address] [place] [address] Scheduled Orders Name Type Priority Associated Diagnoses [...] RESISTANT HTN 09/16/2023 CKD PHOS USE SMARTSET 53773 11/23/2023 05/0 09/2022, 11/18/2021, 11/02/2020, Additional history exists Albumin/Creatinine Ratio 03/06/2024 023, 05/23/2022, 08/15/2021, Additional history exists GFR 03/14/2024 09/14/2023, 09/2 08/2022, 03/14/2023, Additional history exists CKD HGB USE SMARTSET 46476 09/14/202409/14, 03/06/2023, 03/06/2023, Additional history exists O2 [...] this encounter Medical Devices Implanted Type Area Rim Buster Device Identifier Shelf Expiration Date Model / Serial / Lot Cath Thermodilution 6fr - [id number] Implanted:Qty: 1 on 05/31/2022 by Yoli Rocha MD at [facility] [employer] [id number] 01/30/2024 [id number] / / [id number] Stent Synergy Xd Mr [id number] - [id number] Implanted:Qty: 1 on 07/27/2022 by Yoli Rocha MD at [facility] [employer] 11/08/2023 [id number] / / [id number] documented as of this encounter Visit Diagnoses [...] Discussed due to patient's condition Care Teams Physics Technician Relationship Specialty Start Date End Date Jazzy Appiah DO [address] [place] [address] [place] [phone] PCP - General Internal Medicine 03/12/17 documented as of this encounter
--- OUTSIDE RECORDS SUMMARY | 2023-10-07 14:34 | External Medical Summary | Summary of Care ---
Author Name Unknown Organization [facility] Address [address] [facility] [place] [address] Phone [phone] Care Team Providers Care Nitrogen Operator Name Role Phone Jazzy Appiah DO Primary Care Provider [phone] Reason for Referral * Precert (Within 10 days (routine)) - Authorized Specialty Diagnoses / Procedures Referred By Contvale t Referred To Contact Cardiac Studies Diagnoses Aortic valve stenosis, etiology of cardiac valve disease unspecified Chronic heart failure with preserved ejection fraction (HCC) SOB (shortness of breath) Procedures ECHO, COMPLETE (2D), TRANS-THORACIC Adela Lopez PA-C [address] [place] [id number] Referral ID Status Reason Start Date Expiration Date V isits Requested Visits Authorized [id number] Authorized Precert 09/15/2023 999 999 Reason for Visit * Reason Comments Follow Up Encounter Details Date Type Department Care Team (Late st Contact Info) Description 09/14/2023 10:30 AM EST Office Visit Cardiology, [facility] [address] [facility] [place] [address] Adela Lopez PA-C [address] [place] [address] Chronic heart failure with preserved ejection fraction (HCC)*; SOB (shortness of breath); Aortic valve stenosis, etiology of cardiac valve disease unspecified; Coronary artery disease involving venetie coronary artery of venetie heart without angina pectoris; Essential hypertension with goal blood pressure less than 140/90 Allergies Active Allergy Reactions Criticality Noted Date Comments Ramipril Unknown Low 01/08/2014 Gabapentin Edema Other Medium 03/30/2011 Attempted x 3 with resultant fatigue and peripheral edema Oxycodone 06/09/2019 Makes me go crazy documented as of this encounter (statuses as of 09/14/2023) Medications Medication Sig Dispensed Refills Start Date End Date Status STOOL SOFTENER 100 MG PO TABS 1-2 tabs twice daily for constipation 0 07/11/20 13 Active CRANBERRY PLUS VITAMIN C 140-100-3 MG-MG-UNIT PO CAPS four tablets by mouth daily 0 Active Cyanocobalamin (B-12) 1000 MCG CapsuleIndications :B12 deficiency Take 1 Capsule by mouth in the morning. 0 11/14/19 19 Active Ascorbic Acid (VITAMIN C) 1000 MG Tablet Take 0.5 Tablets by mouth in the morning. 0 Active Aspirin 81 MG Tablet Take 1 Tablet by mouth in the morning. 0 Active Nitroglycerin 0.3 MG Sublingual Tablet Sublingual (NITROSTAT) Place 1 Tablet under the tongue every 5 minutes as needed for Pain, Chest. up to 3 doses in 15 minutes. 100 Tab 11 04/14/20 20 Active Vitamin B6 50 MG Oral Tablet [...] Active Losartan Potassium 50 MG Oral Tablet (Cozaar)Indication s:Chronic kidney disease, stage 3b (HCC) Take 1 Tablet (50 mg) by mouth in the morning. 180 Tablet 1 06/30/20 22 Active hydrALAZINE HCl 50 MG Oral Tablet (Apresoline)Indica tions:Essential hypertension with goal blood pressure less than 140/90 Take 1 Tablet by mouth in the morning and 1 Tablet at noon and 1 Tablet before bedtime. 270 Tablet 3 10/07/19 23 Active Torsemide 10 MG Oral Tablet (Demadex)Indicatio ns:Essential hypertension with goal blood pressure less than 140/90 TAKE 1 TABLET BY MOUTH ONCE DAILY IN THE MORNING MAY TAKE 1 EXTRA TORSEMIDE IF WEIGHT GAIN OF 3-4 LBS OVERNIGHT 120 Tablet 3 11/21/19 23 Active Additional Information Patient taking differently: 20 mg MWF, 10 mg all other days, Reported on 09/14/2023 amLODIPine Besylate 5 MG Oral Tablet (Norvasc)Indicatio ns:Essential hypertension with goal blood pressure less than 140/90 Take 1 Tablet by mouth in the morning. 90 Tablet 1 03/06/20 23 Active Atorvastatin Calcium 20 MG Oral Tablet (Lipitor)Indicatio ns:Hyperlipidemia with target LDL less than 70 Take 1 Tablet by mouth in the morning. 90 Tablet 1 03/06/20 23 Active Omeprazole 20 MG Oral Capsule Delayed Release (PriLOSEC) Take 1 Capsule by mouth in the morning. 90 Capsule 0 08/02/19 24 Active Carvedilol 6.25 MG Oral Tablet (Coreg) Take 1 Tablet by mouth in the morning and 1 Tablet before bedtime. 180 Tablet 3 08/08/19 24 Active HYDROcodone-Acetam inophen 10-325 MG Oral TabletIndications: Generalized osteoarthritis,Deg eneration of lumbosacral intervertebral disc Take 1 Tablet by mouth 2 times a day as needed for Pain, Severe. 60 Tablet 0 08/27/19 24 Active Turmeric Curcumin 500 MG Oral Capsule Take by mouth once. 0 024 Discontinued(Pa tient preference/disc ontinuation) Potassium Chloride Melissa ER 10 MEQ Oral Tablet Extended Release Take 1 Tablet by mouth in the morning. 30 Tablet 11 08/04/19 23 024 Discontinued(Pa tient preference/disc ontinuation) Clopidogrel Bisulfate 75 MG Oral Tablet (pLAVix) Take 1 Tablet by mouth in the morning. 90 Tablet 1 07/09/20 23 024 Discontinued documented as of this encounter (statuses as of 09/14/2023) Active Problems Problem Noted Date Diagnosed Date [...] 0 10/01/2013 Coronary artery disease invo lving venetie coronary artery of venetie heart without angina pectoris 05/20/2013 Hyperlipidemia with target LDL less than 70 08/23 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 02/28/2012 GENERAL OSTEOARTHROSIS Hiatal hernia documented as of this encounter (statuses as of 09/14/2023) Resolved Problems Problem Noted Date Diagnosed Date Resolved Date Hypertensive kidney disease with chronic kidney disease stage III 11/04/2018 06/03/2020 Overview: Per CKD protocol Carpal tunnel syndrome of left wrist 11/11/2015 09/18/2017 Tubular adenoma of colon 04/14/2015 Benign esophageal stricture 03/15/2015 09/18/2017 MEDICATION USE AGREEMENT 08/21/2014 Overview: Signed 08/21/2014 Nazanin Mayfield MD [facility] as backup Anemia 10/01/2013 04/08/2015 COPD, [...] as of this encounter (statuses as of 09/14/2023) Immunizations Name Administration Dates Next Due COVID-19 [...] Sign Reading Time Taken Comments Blood Pressure 184/54 09/14/2023 10:33 AM EST Pulse 60 09/14/2023 10:33 AM EST Temperature - - Respiratory Rate 16 09/14/2023 10:33 AM EST Oxygen Saturation - - Inhaled Oxygen Concentration - - Weight 65.8 kg (145 lb) 09/14/2023 10:33 AM EST Height - - Body Mass Index 25.69 07/27/2022 9:45 AM EST documented in this [...] as of this encounter Progress Notes * Adela Lopez PA-C - 09/14/2023 10:20 AM EST 09/14/2023 Cardiology Follow Up Primary Oceanology Teacher: Dr. Gonzáles Past Medical History: CAD s/p stenting to left main coronary artery Severe aortic Stenosis HFpEF HTN Dyslipidemia HPI: Georgina Pugh is a 78 year old female who presents for cardiology follow up. Presents accompanied by . States chest pain comes and goes, occurs while sitting or with exertion. Feels like a jagging pain that lasts for 5-10 minutes. Also has some shortness of breath and palpitations. Notes weight up and edema worsening over past 3 weeks. Drinks about 32 oz of water daily. Eats porkchops, mashed potatoes, fries. Does not add salt to foods. Has stopped taking plavix as it has sharmila year since her stent, since then she feels the swelling has worsened. States she was told she can't increase her diuretic due to her kidney function. Not very active. Uses walker, but sits and pushes with feet, can't stand for very long as feet hurt. REVIEW OF SYSTEMS: See HPI for pertinent positives. All others negative other than those noted in the HPI. CONSTITUTIONAL: + change in weight, No weakness, No fatigue and No fevers, No sweats or chills. PULMONARY: No cough, sputum, or hemoptysis, No wheezing, + shortness of breath and No recent changein breathing. CARDIOVASCULAR: + chest pain, + dyspnea on exertion, + edema, + palpitations and No syncope. GASTROINTESTINAL: No abdominal pain, No change in bowel habits, No significant heartburn, No nausea, No vomiting, No diarrhea, No constipation, No blood in stools or black tarry stools. No dysphagia. HEMATOLOGIC: No abnormal bleeding and No bruising. NEUROLOGICAL: No headaches and No weakness. Review of patient's allergies indicates: Allergen Reactions Neurontin [Gabapentin] Edema Other Attempted x 3 with resultant fatigue and peripheral edema Oxycodone Makes me go crazy Altace [Ramipril] Unknown Current Outpatient Medications Medication Sig Dispense Refill STOOL SOFTENER 100 MG PO TABS 1-2 tabs twice daily for constipation CRANBERRY PLUS VITAMIN C 140-100-3 MG-MG-UNIT PO CAPS four tablets by mouth daily Cyanocobalamin (B-12) 1000 MCG Capsule Take 1 Capsule by mouth in the morning. Ascorbic Acid (VITAMIN C) 1000 MG Tablet Take 0.5 Tablets by mouth in the morning. Aspirin 81 MG Tablet Take 1 Tablet by mouth in the morning. Nitroglycerin 0.3 MG Sublingual Tablet Sublingual (NITROSTAT) Place 1 Tablet under the tongue every5 minutes as needed for Pain, Chest. up to 3 doses in 15 minutes. 100 Tab 11 Vitamin B6 50 MG Oral Tablet Take by mouth . Unsure dosage Acetaminophen ER 650 MG Oral Tablet Extended Release Take 1 Tablet by mouth every 8 hours as needed. Vitamin E 450 MG Oral Capsule Take [...] 1 Tablet before bedtime. 180 Tablet 3 HYDROcodone-Acetaminophen 10-325 MG Oral Tablet Take 1 Tablet by mouth 2 times a day as needed for Pain, Severe. 60 Tablet 0 No current facility-administered medications for this visit. [...] Chronic coronary artery disease 05/20/2013 COPD, mild ([facility]) 03/31/2013 Degeneration of lumbosacral intervertebral disc 2000 [...] below 140/90 04/18/2010 Inflammation of sacroiliac joint ([facility]) 09/15/2011 Iron deficiency anemia 03/15/2015 Irritable bowel syndrome Kidney disease, chronic, stage III (GFR 30-59 ml/min) ([facility]) 03/31/2013 Knee joint replacement status 5-12-03 left knee Lumbago 11/21/2010 Lumbar degenerative disc disease 06/29/2015 Lumbar spinal stenosis 06/29/2015 LUMBOSACRAL NEURITIS NOS 03/08/2011 Mitral valve prolapse MYALGIA AND MYOSITIS NOS 01/05/2011 NONALLERGIC RHINITIS 04/29/2004 OCCIPITAL NEURALGIA 01/05/2011 Osteoporosis 05/13/2010 Other chest pain non cardiac Other chronic sinusitis recurrent sinusitis PAD (peripheral artery disease) ([facility]) 03/03/2015 Periumbilical hernia Popliteal synovial cyst R leg Precordial pain noncardiac. Normal cardiac cath 1992 Pulmonary hypertension ([facility]) artery PVD (peripheral vascular disease) ([facility]) Reflux esophagitis RESPIRATORY ABNORM NEC 04/29/2004 Rheumatic fever as a child Rheumatic heart disease h/o systolic heart murmur Sacroiliac joint disease 09/15/2011 Senile osteoporosis based on FRAX, major risk of 22% Spinal stenosis of lumbar region without neurogenic claudication 2000 seen on MRI Tension headache Tietze's disease costochondritis Tubular adenoma of colon 04/14/15 Umbilical hernia VITAMIN D DEFICIENCY NOS 05/24/2011 Family History Problem Relation Age of Onset Cancer Father unknown type Cancer Grandmother (Paternal) stomach Diabetes Father Heart Disorder Mother CABG age 50'5 Hypertension Father Hypertension Sister Neurological Disorder Mother Alzheimers Arthritis Father crippled with arthritis Arthritis Sister Arthritis Sister Arthritis Brother Social History Socioeconomic History Marital status: Spouse name: Gilmar Number of children: 3 Occupational History Occupation: [employer] Comment: retired Tobacco Use Smoking status: Former [...] Topics Concern Service No Blood Transfusions Yes Occupational Exposure No Hobby Hazards No Stress Concern Yes Weight Concern Yes Special Diet Yes Seat Belt Yes Social History Narrative [employer] INFORMATION [...] Lives on a farm: No Works in [employer]; 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 Entered By: Ej Rodney MD 04/29/2004 Social Determinants of Health Food Insecurity: No Food Insecurity (10/29/2019) Hunger Vital Sign Worried About Running Out of Food in the Last Year: Never true Ran Out of Food in the Last Year: Never true OBJECTIVE/PHYSICAL EXAMINATION: BP 184/54 (BP Site: Left Arm, BP Position: Sitting, BP Cuff Size: Regular) | Pulse 60 | Resp 16 | Wt 65.8 kg (145 lb) | BMI 25.69 kg/m | BSA 1.71 m Wt Readings from Last 3 Encounters: 09/14/23 65.8 kg (145 lb) 04/16/23 63 kg (139 lb) 02/23/23 64.1 kg (141 lb 6.4 oz) BP on my evaluation: 192/60 General: No acute distress. A+Ox3. HEENT: Normocephalic. Atraumatic. PERRL. EOMI. Conjunctiva and sclera clear. NECK: No carotid bruits. No JVD. Carotid upstrokes are brisk. Heart: RRR. S1 and S2 noted. +3/6 systolic murmur. No rubs or gallops. PMI non displaced. Lungs: Clear to auscultation. No wheezes. No rhonchi. No rales. Abdomen: Normal bowel sounds. Soft. Nontender. No masses or organomegaly. No abdominal bruits. Extremities: 2+ bilateral LE edema. No clubbing or cyanosis. Pulses: radial=2/4, posterior tibial=2/4, dorsalis pedis = 2/4. NEURO: No focal deficits. PSYCH: Appropriate affect and insight. DATA Labs & Imaging Reviewed Below: EKG 04/16/23 Sinus bradycardia, 53 bpm, LVH, cannot rule out septal infarct Cardiac Cath 07/27/22 * Ostial to proximal LMCA has 70% stenosis s/p successful IVUS guided PCI with 4.5 x 12 mm Synergy LU which was post dilated with 5.0 NC balloon. Final angiogram showed excellent result with 0% residual stenosis, a good step-up and step-down, CJ III flow and no evidence of dissection or perforation. LANEY 05/16/22 The examination is adequate to evaluate the referral indication. The qualitative LV ejection fraction is 65-69% (normal). No LV segmental wall motion abnormalities. Moderate aortic valve stenosis is present. Moderate aortic valve regurgitation is present. There is severe mitral annular calcification. Mild mitral stenosis is present. Moderate mitral regurgitation is present. A small (<5 mm) circumferential pericardial effusion is noted. Echo 02/16/22 The qualitative LV ejection fraction is 60-64% (normal). The LV wall thickness is moderately increased (concentric). The left atrium is severely enlarged. The aortic valve is severely calcified. Borderline severe aortic valve stenosis. Mild aortic valve regurgitation is present. Mild mitral regurgitation is present. A small (<5 mm) circumferential pericardial effusion is noted. Cardiac tamponade is absent. Compared to last available study changes are noted as follows: Aortic valve systolic gradient has increased, circumferential pericardial effusion now present. ASSESSMENT/PLAN: 78 year old female 1. Chronic heart failure with preserved ejection fraction (HCC) 2. SOB (shortness of breath) - edema present, weight up - symptoms likely related to hypervolemia - last labs with CKD, hyperkalemia, repeat labs today - discussed increasing torsemide for DTP, she is hesitant to, will consider once labs back, for nowcontinue torsemide 20 mg MWF, 10 mg all other days - she is also anemic which may be contributing - discussed low sodium diet, she is currently eating many foods high in sodium 3. Aortic valve stenosis, etiology of cardiac valve disease unspecified - moderate aortic valve stenosis per LANEY 04/2022 - was seen by valve clinic in past - repeat echo to assess aortic valve 4. Coronary artery disease involving venetie coronary artery of venetie heart without angina pectoris - continue aspirin 81 mg daily, atorvastatin 20 mg daily 5. Essential hypertension with goal blood pressure less than 140/90 - significantly elevated, states she is worked up - has appt with PCP later today, asymptomatic, continue to monitor - continue amlodipine 5 mg daily, carvedilol 6.25 mg twice daily, hydralazine 50 mg TID, losartan 50 mg daily DISPOSITION: Follow up 1-2 weeks or sooner if symptoms worsen/fail to improve. All questions were answered to the patients satisfaction. Patient advised to report to ED with any and all emergencies. The patient agrees to the above plan and will call with additional questions or concerns. Adela Lopez PA-C [facility] [address] [facility] [id number] I spent a total of 40 minutes on the date of service in preparation, delivery, and documentation ofthe care provided to Georgina Pugh excluding any time spent in the performance of separately billed services. This chart was completed in part utilizing H2020 Speech Voice Recognition Software. Grammatical errors, random word insertions, pronoun errors, and incomplete sentences are an occasional consequence of this system due to software limitations, ambient noise, and hardware issues. Any formal questions or concerns about the content, text, or information contained within the body of this dictation should be directly addressed to the provider for clarification. documented in this encounter Nursing Notes * Marissa Tay CMA - 09/14/2023 10:43 AM EST Examination Room: 7 Name: Georgina Pugh Date of : (1945). Reason for Visit: 5M f/u Interim Hospitalization(s): none Problems/Concerns: LE edema in feet and legs x 3 weeks. Patient states she d/c'd Plavix about a week prior. Palpitations waking up at night. Chest Pain/SOB: Occasional L-sided chest pressure/tightness. SOB with little exertion. States worsethan prior. [facility] Discussed: Not applicable [facility] a way you can [...] 10:30 AM EST Office Visit Vascular Surgery, [facility] [address] [facility] [place] [address] Michael Hernandez [facility] [address] [facility] [address] 09/25/2023 2:30 PM EST Cardiac Studies Cardiac Studies [address] [place] [address] 09/28/2023 3:30 PM EST Office Visit Cardiology, [facility] [address] [facility] [place] [address] Pricilla Morse CRNP [address] [facility] [place] [address] 04/23/2024 3:10 PM EDT Office Visit Family Medicine [address] [place] [phone] Jazzy Appiah[address] [place] [address] Pending Results Name Type Priority Associated Diagnoses Date /Time TSH WITH FREE T4 IF INDICATED Lab Routine Aortic valve stenosis, etiology of cardiac valve disease unspecified Chronic heart failure with preserved ejection fraction (HCC) SOB (shortness of breath) 09/14/2023 11:22 AM EST COMPREHENSIVE METABOLIC PANEL Lab Routine Aortic valve stenosis, etiology of cardiac valve disease unspecified Chronic heart failure with preserved ejection fraction (HCC) SOB (shortness of breath) 09/14/2023 11:22 AM EST Scheduled Orders Name Type Priority Associated Diagnoses Orde r Schedule TSH WITH FREE T4 IF INDICATED Lab Routine Aortic valve stenosis, etiology of cardiac valve disease unspecified Chronic heart failure with preserved ejection fraction (HCC) SOB (shortness of breath) Expected: 09/14/2023, Expires: 09/14/2024 COMPREHENSIVE METABOLIC PANEL Lab Routine Aortic valve stenosis, etiology of cardiac valve disease unspecified Chronic heart failure with preserved ejection fraction (HCC) SOB (shortness of breath) Expected: 09/14/2023, Expires: 09/14/2024 ECHO, COMPLETE (2D), TRANS-THORACIC Echocardiology Routine Aortic valve stenosis, etiology of cardiac valve disease unspecified Chronic heart failure with preserved ejection fraction (HCC) SOB (shortness of breath) Expected: 09/15/2023, Expires: 10/12/2025 Health Maintenance Due Date Last Done Comments Alpha-1 Antitrypsin 1961 Zoster Vaccines (1 of 2) 1993 DXA Scan 12/04/2020 12/04/2017, 07/24, 07/21/2010, Additional history exists Depression Screening 01/20/2022 01/20/2021 COVID-19 Vaccine ( season) 2023 11/20/2020, 10/26/2020 Chawla's Esophagus Surveilance 04/09/2023 04/09/2020, 07/07/2019, 04/10/2012, Additional history exists GFR 10/12/2023 04/13/2023, 02/21, 03/06/2023, Additional history exists CKD PHOS USE SMARTSET 87799 11/23/2023 05/0 09/2022, 11/18/2021, 11/02/2020, Additional history exists Albumin/Creatinine Ratio 03/06/2024 023, 05/23/2022, 08/15/2021, Additional history exists CKD HGB USE SMARTSET 25316 09/14/202409/14, 03/06/2023, 03/06/2023, Additional history exists O2 [...] this encounter Medical Devices Implanted Type Area Truck Headlight Assembler Device Identifier Shelf Expiration Date Model / Serial / Lot Cath Thermodilution 6fr - [id number] Implanted:Qty: 1 on 05/31/2022 by Yoli Rocha MD at [facility] [place] [employer] SEBASTIAN [id number] 01/30/2024 [id number] / / [id number] Stent Synergy Xd Mr [id number] - [id number] Implanted:Qty: 1 on 07/27/2022 by Yoli Rocha MD at [facility] [employer] 11/08/2023 [id number] / / [id number] documented as of this encounter Results * (ABNORMAL) CBC (09/14/2023 11:22 AM EST) [facility] WBC 5.69 4.00 - 10.80 K/uL 09/14/2023 12:05 PM EST [facility] [place] [facility]10 RBC 3.32 3.85 - 5.15 M/uL 09/14/2023 12:05 PM EST [facility] [place] 57-10 HGB 10.0(L) 12.0 - 15.3 g/dL 09/14/2023 12:05 PM EST [facility] [place] 57-10 HCT 31.7(L) 36.0 - 45.2 % 09/14/2023 12:05 PM EST [facility] [place] 57-10 MCV 95.5 81.5 - 97.5 fL 09/14/2023 12:05 PM EST [facility] [place] 57-10 MCH 30.1 27.0 - 34.0 pg 09/14/2023 12:05 PM EST [facility] [place] 57-10 MCHC 31.5 32.0 - 36.0 g/dL 09/14/2023 12:05 PM EST [facility] [place] 57-10 RDW 14.9 11.5 - 15.5 % 09/14/2023 12:05 PM EST [facility] [place] 57-10 PLT 201 140 - 400 K/uL 09/14/2023 12:05 PM EST [facility] [place] 57-10 MPV 10.5 6.6 - 11.1 fL 09/14/2023 12:05 PM EST [facility] [place] 57-10 Blood Venous blood specimen / Unknown Venipuncture / Unknown 09/14/2023 11:22 AM EST 09/14/2023 11:23 AM EST Adela Lopez PA-C LAB BLOOD ORDER [place] [place] [facility]10 [address] [place] [id number] documented in this encounter Visit Diagnoses Diagnosis Chronic heart failure with preserved ejection fraction (HCC)- Primary SOB (shortness of breath) Shortness of breath Aortic valve stenosis, etiology of cardiac valve disease unspecified Coronary artery disease involving venetie coronary artery of venetie heart without angina pectoris Essential hypertension with goal blood pressure less [...] Discussed due to patient's condition Care Teams Nitrogen Operator Relationship Specialty Start Date End Date Jazzy Appiah DO [address] [place] [address] HOME [place] [phone] PCP - General Internal Medicine 03/12/17 documented as of this encounter"
--- OUTSIDE RECORDS SUMMARY | 2023-10-07 14:34 | External Medical Summary | Summary of Care ---
Author Name Unknown Organization [facility] Address [address] [facility] [place] [address] Phone [phone] Care Team Providers Care Law Office Manager Name Role Phone Jazzy Appiah DO Primary Care Provider + [phone] Reason for Visit * Reason Comments Outpatient Testing Encounter Details Date Type Department Care Team (Late st Contact Info) Description 09/14/2023 11:20 AM EST Laboratory Laboratory, [facility] [address] [facility] [place] [phone] [facility] [address] [facility] [place] [address] Aortic valve stenosis, etiology of cardiac valve disease unspecified; Chronic heart failure with preserved ejection fraction (HCC); SOB (shortness of breath) Allergies Active Allergy Reactions Criticality Noted Date [...] the morning. 90 Tablet 1 07/09/2023 Active Additional Information Patient not taking.Reported on 09/14/2023 Omeprazole 20 MG Oral Capsule Delayed Release [...] 0 10/01/2013 Coronary artery disease invo lving [place] coronary artery of [place] heart without angina pectoris 05/20/2013 Hyperlipidemia with [...] Overview: Signed 08/21/2014 Nazanin Mayfield MD [facility] as backup Anemia 10/01/2013 04/08/2015 COPD, mild [...] mRNA, LNP-s, No Pre serve, 2-Dose Series (GVISP 1) 11/20/2020,10/26/2020 Pneumococcal Conjugate Vacc, 13 Valent (Prevnar) [...] Team (Late st Contact Info) Description 09/14/2023 3:10 PM EST Office Visit Family Medicine [address] [place] [phone] [place] [address] 09/19/2023 10:30 AM EST Office Visit Vascular Surgery, [facility] [address] [facility] [place] [address] Michael Hernandez MD [address] [place] [facility] [place] [address] 09/25/2023 2:30 PM EST Cardiac Studies Cardiac Studies [address] [place] [address] 09/28/2023 3:30 PM EST Office Visit Cardiology, [facility] 132 [facility] [place] [address] Pricilla Morse CRNP [address] [facility] [place] [address] Pending Results Name Type Priority Associated Diagnoses Date /Time CBC Lab Routine Aortic valve stenosis, etiology of cardiac valve disease unspecified Chronic heart failure with preserved ejection fraction (HCC) SOB (shortness of breath) 09/14/2023 11:22 AM EST TSH WITH FREE T4 IF INDICATED Lab Routine Aortic valve stenosis, etiology of cardiac valve disease unspecified Chronic heart failure with preserved ejection fraction (HCC) SOB (shortness of breath) 09/14/2023 11:22 AM EST COMPREHENSIVE METABOLIC PANEL Lab Routine Aortic valve stenosis, etiology of cardiac valve disease unspecified Chronic heart failure with preserved ejection fraction (HCC) SOB (shortness of breath) 09/14/2023 11:22 AM EST Health Maintenance Due Date Last Done Comments Alpha-1 Antitrypsin 1961 Zoster Vaccines (1 of 2) 1993 DXA Scan 12/04/2020 12/04/2017, 07/24, 07/21/2010, Additional history exists Depression Screening 01/20/2022 01/20/2021 COVID-19 Vaccine ( season) 2023 11/20/2020, 10/26/2020 Chawla's Esophagus Surveilance 04/09/2023 04/09/2020, 07/07/2019, 04/10/2012, Additional history exists GFR 10/12/2023 04/13/2023, 02/21, 03/06/2023, Additional history exists CKD PHOS USE SMARTSET 78458 11/23/2023 05/0 09/2022, 11/18/2021, 11/02/2020, Additional history exists Albumin/Creatinine Ratio 03/06/2024 023, 05/23/2022, 08/15/2021, Additional history exists CKD HGB USE SMARTSET 77323 03/06/202403/06, 03/06/2023, 11/22/2022, Additional history exists O2 [...] this encounter Medical Devices Implanted Type Area Sourcing Assistant Device Identifier Shelf Expiration Date Model / Serial / Lot Cath Thermodilution 6fr - [id number] Implanted:Qty: 1 on 05/31/2022 by Yoli Rocha MD at [facility] [employer] [id number] 01/30/2024 [id number] / / [id number] Stent Synergy Xd Mr [id number] - [id number] Implanted:Qty: 1 on 07/27/2022 by Yoli Rocha MD at [facility] [employer] 11/08/2023 [id number] / / [id number] documented as of this encounter Visit Diagnoses Diagnosis Aortic valve stenosis, etiology of cardiac valve disease unspecified Chronic heart failure with preserved ejection fraction (HCC) SOB (shortness of breath) Shortness of breath documented in this encounter Advance Directives Latest Code Status on File Code Status Date Activated Date Inactivated Comments Full Code 07/27/2022 12:56 PM 07/28/2022 1:52 PM This o rder reflects the patients wishes and were consensually agreed upon. Question Answer Comments Discussion of Advance Directives occurred with: Not Discussed due to patient's condition Care Teams Law Office Manager Relationship Specialty Start Date End Date Jazzy Appiah DO [address] [place] [address] HOME [place] [phone] PCP - General Internal Medicine 03/12/17 documented as of this encounter
--- OUTSIDE RECORDS SUMMARY | 2023-10-07 14:34 | External Medical Summary | Summary of Care ---
Author Name Unknown Organization [facility] Address [address] [facility] [place] [address] Phone [phone] Care Team Providers Care Purchasing/Receiving Name Role Phone Jazzy Appiah DO Primary Care Provider [phone] Reason for Visit * Reason Comments Re-Check Pt c/o a lot of pain and swelling in feet/legs (bilateral). Encounter Details Date Type Department Care Team (Late st Contact Info) Description 09/14/2023 3:10 PM EST Office Visit [facility] [address] [place] [address] Jazzy Appiah [address] [place] [address] 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*; Pulmonary emphysema, unspecified emphysema type (HCC); Chronic kidney disease, stage 3b (HCC); Chronic diastolic heart failure (HCC); Hyperlipidemia with target LDL less than 70; Essential hypertension with goal blood pressure less than 140/90; custodial current use of therapeutic drug; Iron deficiency anemia, unspecified iron deficiency anemia type Allergies Active Allergy Reactions Criticality Noted Date [...] 1-2 tabs twice daily for constipation 0 3 Active CRANBERRY PLUS VITAMIN C 140-100-3 MG-MG-UNIT PO CAPS four tablets by mouth daily 0 Active Cyanocobalamin (B-12) 1000 MCG CapsuleIndications :B12 deficiency Take 1 Capsule by mouth in the morning. 0 9 Active Ascorbic Acid (VITAMIN C) 1000 MG Tablet Take 0.5 Tablets by mouth in the morning. 0 Active Aspirin 81 MG Tablet Take 1 Tablet by mouth in the morning. 0 Active Nitroglycerin 0.3 MG Sublingual Tablet Sublingual (NITROSTAT) Place 1 Tablet under the tongue every 5 minutes as needed for Pain, Chest. up to 3 doses in 15 minutes. 100 Tab 11 0 Active Vitamin B6 50 MG Oral [...] mouth in the morning. 180 Tablet 1 2 Active hydrALAZINE HCl 50 MG Oral Tablet (Apresoline)Indica tions:Essential hypertension with goal blood pressure less than 140/90 Take 1 Tablet by mouth in the morning and 1 Tablet at noon and 1 Tablet before bedtime. 270 Tablet 3 3 Active Torsemide 10 MG Oral Tablet (Demadex)Indicatio ns:Essential hypertension with goal blood pressure less than 140/90 TAKE 1 TABLET BY MOUTH ONCE DAILY IN THE MORNING MAY TAKE 1 EXTRA TORSEMIDE IF WEIGHT GAIN OF 3-4 LBS OVERNIGHT 120 Tablet 3 3 Active Additional Information Patient taking differently: 20 mg MWF, 10 mg all other days, Reported on 09/14/2023 amLODIPine Besylate 5 MG Oral Tablet (Norvasc)Indicatio ns:Essential hypertension with goal blood pressure less than 140/90 Take 1 Tablet by mouth in the morning. 90 Tablet 1 3 Active Atorvastatin Calcium 20 MG Oral Tablet (Lipitor)Indicatio ns:Hyperlipidemia with target LDL less than 70 Take 1 Tablet by mouth in the morning. 90 Tablet 1 3 Active Omeprazole 20 MG Oral Capsule Delayed Release (PriLOSEC) Take 1 Capsule by mouth in the morning. 90 Capsule 0 4 Active Carvedilol 6.25 MG Oral Tablet (Coreg) Take 1 Tablet by mouth in the morning and 1 Tablet before bedtime. 180 Tablet 3 4 Active HYDROcodone-Acetam inophen 10-325 MG Oral TabletIndications: Generalized osteoarthritis,Deg eneration of lumbosacral intervertebral disc Take 1 Tablet by mouth 2 times a day as needed for Pain, Severe. 60 Tablet 0 4 Active Clopidogrel Bisulfate 75 MG Oral Tablet (pLAVix) Take 1 Tablet by mouth in the morning. 90 Tablet 1 3 09/14/19 24 Discontinued documented as of this encounter (statuses [...] 0 10/01/2013 Coronary artery disease invo lving [place] coronary artery of [place] heart without angina pectoris 05/20/2013 Hyperlipidemia with [...] Mayfield MD [facility] as backup Anemia 10/01/2013 04/08/2015 COPD, mild [...] mRNA, LNP-s, No Pre serve, 2-Dose Series ([employer]) 11/20/2020,10/26/2020 Pneumococcal Conjugate Vacc, 13 Valent (Prevnar) [...] Sign Reading Time Taken Comments Blood Pressure 142/58 09/14/2023 3:02 PM EST Pulse 62 09/14/2023 3:02 PM EST Temperature 37 C (98.6 F) 09/14/2023 3:02 PM EST Respiratory Rate - - Oxygen Saturation 93% 09/14/2023 3:02 PM EST Inhaled Oxygen Concentration - - Weight - [...] as of this encounter Progress Notes * Jazzy Appiah, - 09/14/2023 3:07 PM EST Subjective: Georgina Pugh is a 78 year old female. Chief Complaint Patient presents with Re-Check Pt c/o a lot of pain and swelling in feet/legs (bilateral). HPI: Georgina Pugh presents today for routine follow up. She was seen by cardiology this morning and was felt to have some fluid in her legs. She is unsure what foods she can eat that are not high in salt - we discussed options today. She does keep her legs elevated. Discussed using LINDEN bandages to help with compression as well. She feels her legs swelled up after she quit taking her Plavix. She had a carotid duplex and ABIs. Moderate occlusive disease LLE, none on the right. No significant CAD. BP is improved here today from what it was in the cardiology office. She believes it was high when she was told that her legs were swollen with 6 pounds of fluid. She continue to use the hydrocodone twice a day with some relief of her back pain. 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 K22.70 Hyperlipidemia with target LDL less than 70 E78.5 Coronary artery disease involving [place] coronary artery of [place] heart without angina pectoris I25.10 Severe aortic stenosis by prior echocardiogram I35.0 Degenerative disc disease, cervical M50.30 PAD (peripheral artery disease) ([facility]) I73.9 Iron deficiency anemia D50.9 Lumbar degenerative disc disease M51.36 Lumbar spinal stenosis M48.061 Gastroesophageal reflux disease without esophagitis K21.9 Essential hypertension with goal blood pressure less than 140/90 I10 Cervical spinal stenosis M48.02 Drug-induced constipation K59.03 MEDICATION USE AGREEMENT [id number] Carotid stenosis, non-symptomatic, bilateral I65.23 COPD, 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[facility]) J44.9 Vaginal atrophy N95.2 Kyphosis M40.209 History of colon polyps Z86.010 Other proteinuria R80.8 B12 deficiency E53.8 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 Dysphagia R13.10 Hypertensive kidney disease with stage 3b chronic kidney disease I12.9, N18.32 Chronic sialoadenitis K11.23 Thyroid nodule E04.1 Chronic kidney disease, stage 3b ([facility]) N18.32 Chronic diastolic heart failure ([facility]) I50.32 Encounter for long-term (current) use of medications Z79.899 S/P primary angioplasty with coronary stent Z95.5 Current Outpatient Medications Medication Sig Dispense Refill [...] Makes me go crazy Altace [Ramipril] Unknown Objective: BP 142/58 | Pulse 62 | Temp 37 C (98.6 F) | SpO2 93% General: alert, healthy, no distress, well nourished, and well developed Neck: supple, no adenopathy, thyroid normal size, non-tender, without nodularity Heart: regular rate & rhythm and no murmur Lungs: chest symmetric with normal AP diameter, no chest deformities noted, no chest wall tenderness, lungs clear to auscultation Abdomen: abdomen soft and non-tender Extremities: no joint deformities, effusion, or inflammation, (+) bilateral LE edema to the level of the mid-calf Neuro Exam: alert & oriented x 3 with fluent speech, no focal motor/sensory deficits, gait normal Skin: skin color, texture, turgor are normal, no rashes or significant lesions ASSESSMENT/PLAN: 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 Has labs and Echo pending. Hyperlipidemia with target LDL less than 70 - continue atorvastatin - LIPID PANEL WITH DIRECT LDL IF TG IS HIGH; Future; Expected date: 09/14/2023 Essential hypertension with goal blood pressure less than 140/90 - improved from previous reading earlier today. custodial current use of therapeutic drug - VITAMIN B12; Future; Expected date: 09/14/2023 - MAGNESIUM; Future; Expected date: 09/14/2023 - 25-HYDROXY VITAMIN D; Future; Expected date: 09/14/2023 Iron deficiency anemia, unspecified iron deficiency anemia type - IRON SCREEN, INCLUDING TIBC; Future; Expected date: 09/14/2023 - FERRITIN; Future; Expected date: 09/14/2023 Follow Up: Return in about 6 months (around 03/14/2024). Jazzy Appiah DO documented in this encounter Plan of Treatment Upcoming Encounters Date Type Department Care Team (Late st Contact Info) Description 09/19/2023 10:30 AM EST Office Visit [facility] [address] Michael Hernandez MD [address] [place] [address] 09/25/2023 2:30 PM EST Cardiac Studies Cardiac Studies [address] [place] [address] 09/28/2023 3:30 PM EST Office Visit Cardiology, [facility] 132 [facility] [place] [address] Pricilla Morse CRNP 132 [facility] [place] [address] 04/23/2024 3:10 PM EDT Office Visit Family Medicine [address] [place] [phone] [place] [address] Scheduled Orders Name Type Priority Associated Diagnoses Orde r Schedule LIPID PANEL WITH DIRECT LDL IF TG IS HIGH Lab Routine Hyperlipidemia with target LDL less than 70 Expected: 09/14/2023, Expires: 09/14/2024 VITAMIN B12 Lab Routine custodial current use of therapeutic drug Expected: 09/14/2023 (Approximate), Expires: 09/13/2024 MAGNESIUM Lab Routine manager terminal current use of therapeutic drug Expected: 09/14/2023 (Approximate), Expires: 09/13/2024 25-HYDROXY VITAMIN D Lab Routine manager terminal current use of therapeutic drug Expected: 09/14/2023 (Approximate), Expires: 09/13/2024 IRON SCREEN, INCLUDING TIBC Lab Routine Iron deficiency anemia, unspecified iron deficiency anemia type Expected: 09/14/2023 (Approximate), Expires: 09/13/2024 FERRITIN Lab Routine Iron deficiency anemia, unspecified iron deficiency anemia type Expected: 09/14/2023 (Approximate), Expires: 09/13/2024 Health Maintenance Due Date Last Done Comments Alpha-1 Antitrypsin 1961 Zoster Vaccines (1 of 2) 1993 DXA Scan 12/04/2020 12/04/2017, 07/24, 07/21/2010, Additional history exists Depression Screening 01/20/2022 01/20/2021 COVID-19 Vaccine ( season) 2023 11/20/2020, 10/26/2020 Chawla's Esophagus Surveilance 04/09/2023 04/09/2020, 07/07/2019, 04/10/2012, Additional history exists GFR 10/12/2023 04/13/2023, 02/21, 03/06/2023, Additional history exists CKD PHOS USE SMARTSET 05261 11/23/2023 05/0 09/2022, 11/18/2021, 11/02/2020, Additional history exists Albumin/Creatinine Ratio 03/06/2024 023, 05/23/2022, 08/15/2021, Additional history exists O2 ASSESSMENT COMPLETED IN PAST YEAR FOR COPD 03/06/2024 03/06/2023 CKD HGB USE SMARTSET 89622 09/14/202409/14, 03/06/2023, 03/06/2023, Additional history exists DTaP,Tdap,and Td Vaccines (2 - Td or [...] this encounter Medical Devices Implanted Type Area Labor Relations Officer Device Identifier Shelf Expiration Date Model / Serial / Lot Cath Thermodilution 6fr - [id number] Implanted:Qty: 1 on 05/31/2022 by Yoli Rocha MD at [facility] [employer] SE[employer]STIAN [id number] 01/30/2024 [id number] / / [id number] Stent Synergy Xd Mr [id number] - [id number] Implanted:Qty: 1 on 07/27/2022 by Yoli Rocha MD at [facility] [employer] 11/08/2023 [id number] / / [id number] documented as of this encounter Visit Diagnoses Diagnosis 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- Primary Chawla's esophagus Pulmonary emphysema, unspecified emphysema type (HCC) Chronic kidney disease, stage 3b (HCC) Chronic diastolic heart failure (HCC) Chronic diastolic heart failure Hyperlipidemia with target LDL less than 70 Other and unspecified hyperlipidemia Essential hypertension with goal blood pressure less than 140/90 custodial current use of therapeutic drug Iron deficiency anemia, unspecified iron deficiency anemia type documented in this encounter Advance Directives Latest Code Status on File Code Status Date Activated Date Inactivated Comments Full Code 07/27/2022 12:56 PM 07/28/2022 1:52 PM This o rder reflects the patients wishes and were consensually agreed upon. Question Answer Comments Discussion of Advance Directives occurred with: Not Discussed due to patient's condition Care Teams Purchasing/Receiving Relationship Specialty Start Date End Date Jazzy Appiah DO [address] [place] [address] [place] [phone] PCP - General Internal Medicine 03/12/17 documented as of this encounter"
--- OUTSIDE RECORDS SUMMARY | 2023-10-07 14:34 | External Medical Summary | Summary of Care ---
Author Name Unknown Organization [facility] Address [address] [facility] [place] [address] Phone [phone] Care Team Providers Care Wide Load Escort Name Role Phone Jazzy Appiah DO Primary Care Provider [phone] Reason for Visit * Reason Onset Date Comments Med Request 08/08/2023 Encounter Details Date Type Department Care Team (Late st Contact Info) Description 08/08/2023 Telephone Cardiology, [facility] [address] [place] [address] Olu Gonzáles DO [address] [place] [address] Med Request (/) Allergies Active Allergy Reactions Criticality Noted Date Comments Ramipril Unknown Low 01/08/2014 Gabapentin Edema Other Medium 03/30/2011 Attempted x 3 with resultant fatigue and peripheral edema Oxycodone 06/09/2019 Makes me go crazy documented as of this encounter (statuses as of 08/08/2023) Medications Medication Sig Dispensed Refills Start Date [...] Additional Information Patient not taking.Reported on 04/16/2023 Carvedilol 6.25 MG Oral Tablet (Coreg) Take 1 Tablet by mouth in the morning and 1 Tablet before bedtime. 60 Tablet 11 08/17/2022 Active hydrALAZINE HCl 50 MG Oral Tablet [...] Active amLODIPine Besylate 5 MG Oral Tablet (Norvasc)Indications [...] the morning. 90 Tablet 1 07/09/2023 Active HYDROcodone-Acetamin ophen 10-325 MG Oral TabletIndications:Ge neralized osteoarthritis,Degen eration of lumbosacral intervertebral disc Take 1 Tablet by mouth 2 times a day as needed for Pain, Severe. 60 Tablet 0 07/27/2023 Active Omeprazole 20 MG Oral Capsule Delayed Release (PriLOSEC) Take 1 Capsule by mouth in the morning. 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 02/28/2012 GENERAL OSTEOARTHROSIS Hiatal hernia documented as of this encounter (statuses as of 08/08/2023) Resolved Problems Problem Noted Date Diagnosed Date Resolved Date Hypertensive kidney disease with chronic kidney disease stage III 11/04/2018 06/03/2020 Overview: Per CKD protocol Carpal tunnel syndrome of left wrist 11/11/2015 09/18/2017 Tubular adenoma of colon 04/14/2015 Benign esophageal stricture 03/15/2015 09/18/2017 MEDICATION USE AGREEMENT 08/21/2014 Overview: Signed 08/21/2014 Nazanin Myafield MD [facility] as backup Anemia 10/01/2013 04/08/2015 [...] as of this encounter (statuses as of 08/08/2023) Immunizations Name Administration Dates Next Due COVID-19 mRNA, LNP-s, No Pre serve, 2-Dose Series ([employer]) 11/20/2020,10/26/2020 Pneumococcal Conjugate Vacc, 13 Valent (Prevnar) [...] encounter Miscellaneous Notes * Telephone Encounter - Josie Garcia CPhT - 08/08/2023 12:05 PM EST Cardio, refill transferred. Thank you, Josie Garcia CPhT Chlorine Cell Tender [facility]pharm[facility]) 08/08/2023,12:05 PM documented in this encounter Plan of Treatment Upcoming Encounters Date Type Department Care Team (Late st Contact Info) Description 09/10/2023 9:30 AM EST Office Visit Cardiology, [address] [place] [address] Olu Gonzáles [address] [place] [address] 09/10/2023 10:30 AM EST Imaging Vascular Lab, [address] [place] [address] 09/10/2023 11:30 AM EST Imaging Vascular Lab, [address] [place] [address] 09/14/2023 3:10 PM EST Office Visit Family Medicine [address] [place] [phone] [address] [place] [address] 09/19/2023 10:30 AM EST Office Visit Vascular Surgery, [facility] [address] [place] [address] Michael Hernandez MD [address] [facility] [place] [address] Health Maintenance Due Date Last Done Comments Alpha-1 Antitrypsin 1961 Zoster Vaccines (1 of 2) 1993 DXA Scan 12/04/2020 12/04/2017, 07/24, 07/21/2010, Additional history exists Depression Screening 01/20/2022 01/20/2021 *NEPHROLOGY REFERRAL DUE TO RESISTANT HTN 11/24/2022 COVID-19 Vaccine ( season) 2023 11/20/2020, 10/26/2020 Chawla's Esophagus Surveilance 04/09/2023 04/09/2020, 07/07/2019, 04/10/2012, Additional history exists GFR 10/12/2023 04/13/2023, 02/21, 03/06/2023, Additional history exists CKD PHOS USE SMARTSET 91509 11/23/2023 05/0 09/2022, 11/18/2021, 11/02/2020, Additional history exists Albumin/Creatinine Ratio 03/06/2024 023, 05/23/2022, 08/15/2021, Additional history exists CKD HGB USE SMARTSET 12842 03/06/202403/06, 03/06/2023, 11/22/2022, Additional history exists O2 [...] this encounter Medical Devices Implanted Type Area Heavy Equipment Service Technician Device Identifier Shelf Expiration Date Model / Serial / Lot Cath Thermodilution 6fr - [id number] Implanted:Qty: 1 on 05/31/2022 by Yoli Rocha MD at [facility] [employer] [id number] 01/30/2024 [id number] / / [id number] Stent Synergy Xd Mr [id number] - [id number] Implanted:Qty: 1 on 07/27/2022 by Yoli Rocha MD at [facility] [employer] 11/08/2023 [id number] / / [id number] documented as of this encounter Advance Directives Latest Code Status on File Code Status Date Activated Date Inactivated Comments Full Code 07/27/2022 12:56 PM 07/28/2022 1:52 PM This o rder reflects the patients wishes and were consensually agreed upon. Question Answer Comments Discussion of Advance Directives occurred with: Not Discussed due to patient's condition Care Teams Wide Load Escort Relationship Specialty Start Date End Date Jazzy Appiah DO [address] [place] [address] HOME [place] [phone] PCP - General Internal Medicine 03/12/17 documented as of this encounter
--- OUTSIDE RECORDS SUMMARY | 2023-10-07 14:34 | External Medical Summary | Summary of Care ---
Author Name Unknown Organization [facility] Address [address] [facility] [place] [address] Phone [phone] Care Team Providers Care Communications Field Technician Name Role Phone Jazzy Appiah DO Primary Care Provider [phone] Reason for Referral * Evaluate & Treat - Unlimited Visits (Within 10 days (routine)) - Authorized Specialty Diagnoses / Procedures Referred By Viv apodaca Referred To Contact Nephrology Diagnoses Stage 3b chronic kidney disease (HCC) Adela Lopez PA-C [address] [address] Referral ID Status Reason Start Date Expiration Date Visits Requested Visits Authorized [id number] Authorized Specialty Services Required 09/17/2023 999 999 [...] Telephone Cardiology [facility] [address] [address] Adela Lopez PA-C [address] [address] Test Results Allergies Active Allergy Reactions Criticality Noted Date Comments Ramipril Unknown Low 01/08/2014 Gabapentin Edema Other Medium 03/30/2011 Attempted x 3 with resultant fatigue and peripheral edema Oxycodone 06/09/2019 Makes me go crazy documented as of this encounter (statuses as of 09/17/2023) Medications Medication Sig Dispensed Refills Start Date [...] as of this encounter (statuses as of 09/17/2023) Active Problems Problem Noted Date Diagnosed Date [...] 0 10/01/2013 Coronary artery disease invo lving [place] coronary artery of [place] heart without angina pectoris 05/20/2013 Hyperlipidemia with target LDL less than 70 08/23 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 as backup Anemia 10/01/2013 04/08/2015 [...] as of this encounter (statuses as of 09/17/2023) Immunizations Name Administration Dates Next Due COVID-19 mRNA, LNP-s, No Pre serve, 2-Dose Series (hipix) 11/20/2020,10/26/2020 Pneumococcal Conjugate Vacc, 13 Valent (Prevnar) [...] Miscellaneous Notes * Telephone Encounter - Adela Lopez PA-C [...] 10:30 AM EST Office Visit Vascular Surgery, [facility] [address] [place] [address] Michael Hernandez MD [address] [facility] [place] [phone] 09/25/2023 2:30 PM EST Cardiac Studies Cardiac Studies [address] [place] [address] 09/28/2023 3:30 PM EST Office Visit Cardiology, [facility] [address] [place] [address] Pricilla Morse CRNP [address] [place] [address] 04/23/2024 3:10 PM EDT Office Visit Family Medicine [address] [place] [phone] [address] [place] [address] Scheduled Orders Name Type Priority Associated Diagnoses [...] RESISTANT HTN 09/16/2023 CKD PHOS USE SMARTSET 14650 11/23/2023 05/0 09/2022, 11/18/2021, 11/02/2020, Additional history exists Albumin/Creatinine Ratio 03/06/2024 023, 05/23/2022, 08/15/2021, Additional history exists GFR 03/14/2024 09/14/2023, 03/24, 03/14/2023, Additional history exists CKD HGB USE SMARTSET 23027 09/14/202409/14, 03/06/2023, 03/06/2023, Additional history exists O2 [...] this encounter Medical Devices Implanted Type Area Drive In Theater Attendant Device Identifier Shelf Expiration Date Model / Serial / Lot Cath Thermodilution 6fr - [id number] Implanted:Qty: 1 on 05/31/2022 by Yoli Rocha MD at [facility] [place] [employer] [id number] 01/30/2024 [id number] / / [id number] Stent Synergy Xd Mr [id number] - [id number] Implanted:Qty: 1 on 07/27/2022 by Yoli Rocha MD at [facility] [employer] 11/08/2023 [id number] / / [id number] documented as of this encounter Visit Diagnoses Diagnosis Stage 3b chronic kidney disease (HCC)- Primary Chronic heart failure with preserved ejection fraction (HCC) documented in this encounter Advance Directives Latest Code Status on File Code Status Date Activated Date Inactivated Comments Full Code 07/27/2022 12:56 PM 07/28/2022 1:52 PM This order reflects the patients wishes and were consensually agreed upon. Question Answer Comments Discussion of Advance Directives occurred with: Not Discussed due to patient's condition Care Teams Communications Field Technician Relationship Specialty Start Date End Date Jazzy Appiah DO [address] [place] [address] [place] [phone] PCP - General Internal Medicine 03/12/17 documented as of this encounter
--- OUTSIDE RECORDS SUMMARY | 2023-10-07 14:34 | External Medical Summary ---
Author Name Unknown Address Unknown Organization [id number]:[place] [place] [address] [place] [address] Laboratory Report Ordering Provider Test Date Status HOA CALIXTO 09/14/2023 11:22:46 Final Deficient: <20 ng/mL
Ins ufficient: 20-29 ng/mL
Recommended/Optimum:30-50 ng/mL

Vitamin D intoxication is rare. If suspicious of Vitamin D toxicity, evaluation of serum Calcium and PTH is recommended. Observation Date Value Abnormality Reference (Units ) Status 25-OH Vitamin D total 09/14/2023 11:22:46 88 >19 (ng/mL) Final Performing Location LABORATORY C - [address] [place] [address]
--- OUTSIDE RECORDS SUMMARY | 2023-10-07 14:34 | External Medical Summary | Summary of Care ---
Author Name Unknown Organization [facility] Address [address] [facility] [place] [address] Phone [phone] Care Team Providers Care Cardiology Associate Name Role Phone Jazzy Appiah DO Primary Care Provider [phone] Reason for Visit * Reason Onset Date Comments Advice 09/06/2023 Encounter Details Date Type Department Care Team (Late st Contact Info) Description 09/06/2023 Telephone Cardiology, [facility] [address] [place] [phone] Olu Gonzáles DO [address] [place] [address] Advice Allergies Active Allergy Reactions Criticality Noted Date Comments Ramipril Unknown Low 01/08/2014 Gabapentin Edema Other Medium 03/30/2011 Attempted x 3 with resultant fatigue and peripheral edema Oxycodone 06/09/2019 Makes me go crazy documented as of this encounter (statuses as of 09/06/2023) Medications Medication Sig Dispensed Refills Start Date [...] 04/16/2023 hydrALAZINE HCl 50 MG Oral Tablet (Apresoline)Indicati [...] as of this encounter (statuses as of 09/06/2023) Active Problems Problem Noted Date Diagnosed Date [...] 0 10/01/2013 Coronary artery disease invo lving [place] coronary artery of [place] heart without angina pectoris 05/20/2013 Hyperlipidemia with target LDL less than 70 08/23 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 02/28/2012 GENERAL OSTEOARTHROSIS Hiatal hernia documented as of this encounter (statuses as of 09/06/2023) Resolved Problems Problem Noted Date Diagnosed Date Resolved Date Hypertensive kidney disease with chronic kidney disease stage III 11/04/2018 06/03/2020 Overview: Per CKD protocol Carpal tunnel syndrome of left wrist 11/11/2015 09/18/2017 Tubular adenoma of colon 04/14/2015 Benign esophageal stricture 03/15/2015 09/18/2017 MEDICATION USE AGREEMENT 08/21/2014 Overview: Signed 08/21/2014 Nazanin Mayfield MD [facility] as [...] as of this encounter (statuses as of 09/06/2023) Immunizations Name Administration Dates Next Due COVID-19 [...] Telephone Encounter - Maile Stephens OSA - 09/06/2023 10:54 AM EST Spoke with Pt, appt scheduled with Aedla Lopez on 09/14. * Telephone Encounter - Ivan Mancera LPN - 09/06/2023 10:18 AM EST Patient calling as appointment on Sunday was cancelled and she is experiencing bilateral edema withpoor circulation and cold feeling in her legs. Patient is currently taking torsemide 10 mg daily with an additional tablet on only. Patient is unable to weight herself to check for weight gain. Patient asking for advice and to be rescheduled. Please advise. * Telephone Encounter - Reddy Goldberg OSA - 09/06/2023 10:10 AM EST Person calling: pt Relationship to patient: self Number to return call: [phone] Reason for call: pt calling because her appt was cancelled and she is experiencing bilateral leg edema and iced legs and poor circulation Pharmacy: [facility] Provider Name:Dr Gonzáles documented in this encounter Plan of Treatment Upcoming Encounters Date Type Department Care Team (Late st Contact Info) Description 09/10/2023 10:30 AM EST Imaging Vascular Lab, [address] [place] [address] 09/10/2023 11:30 AM EST Imaging Vascular Lab, [address] [place] [address] 09/14/2023 10:30 AM EST Office Visit Cardiology, [address] [place] [address] Adela Lopez PA-C [address] [facility] [place] [address] 09/14/2023 3:10 PM EST Office Visit Family Medicine [address] [place] [phone] Jazzy Appiah[address] [place] [address] 09/19/2023 10:30 AM EST Office Visit Vascular Surgery, [address] [place] [address] Michael Hernandez MD [address] [place] [address] Health Maintenance Due Date Last Done Comments Alpha-1 Antitrypsin 1961 Zoster Vaccines (1 of 2) 1993 DXA Scan 12/04/2020 12/04/2017, 07/24, 07/21/2010, Additional history exists Depression Screening 01/20/2022 01/20/2021 COVID-19 Vaccine ( season) 2023 11/20/2020, 10/26/2020 Chawla's Esophagus Surveilance 04/09/2023 04/09/2020, 07/07/2019, 04/10/2012, Additional history exists GFR 10/12/2023 04/13/2023, 02/21, 03/06/2023, Additional history exists CKD PHOS USE SMARTSET 26887 11/23/2023 05/0 09/2022, 11/18/2021, 11/02/2020, Additional history exists Albumin/Creatinine Ratio 03/06/2024 023, 05/23/2022, 08/15/2021, Additional history exists CKD HGB USE SMARTSET 34456 03/06/202403/06, 03/06/2023, 11/22/2022, Additional history exists O2 [...] this encounter Medical Devices Implanted Type Area Windows Technical Specialist Device Identifier Shelf Expiration Date Model / Serial / Lot Cath Thermodilution 6fr - [id number] Implanted:Qty: 1 on 05/31/2022 by Yoli Rocha MD at [facility] [place] [employer] [id number] 01/30/2024 [id number] / / [id number] Stent Synergy Xd Mr [id number] - [id number] Implanted:Qty: 1 on 07/27/2022 by Yoli Rocha MD at [facility] [place] [employer] 11/08/2023 [id number] / / [id number] documented as of this encounter Advance Directives Latest Code Status on File Code Status Date Activated Date Inactivated Comments Full Code 07/27/2022 12:56 PM 07/28/2022 1:52 PM This o rder reflects the patients wishes and were consensually agreed upon. Question Answer Comments Discussion of Advance Directives occurred with: Not Discussed due to patient's condition Care Teams Cardiology Associate Relationship Specialty Start Date End Date Jazzy Appiah DO [address] [place] [address] [place] [address] PCP - General Internal Medicine 03/12/17 documented as of this encounter
--- OUTSIDE RECORDS SUMMARY | 2023-10-07 14:34 | External Medical Summary ---
Author Name Unknown Address Unknown Organization K01:[facility] - [address] [place] [address] Laboratory Report Ordering Provider Test Date Status HOA CALIXTO 09/14/2023 11:22:46 Final Observation Date Value Abnormality Reference (Units ) Status Iron 09/14/2023 11:22:46 67 33-151 (ug /dL) Final Iron-binding capacity 09/14/2023 11:22:46 299 250-425 (ug/dL) Final Transferrin Sat % 09/14/2023 11:22:46 22 15 -55 (%) Final Performing Location LABORATORY [facility] - [address] [place] [address]
--- OUTSIDE RECORDS SUMMARY | 2023-10-07 14:34 | External Medical Summary ---
Author Name Unknown Address Unknown Organization K01[place] [place] [address] [place] [address] Laboratory Report Ordering Provider Test Date Status HOA CALIXTO 09/14/2023 11:22:46 Final Observation Date Value Abnormality Reference (Units ) Status Vitamin B12 09/14/2023 11:22:46 >2000 Above high normal 232-1245 (pg/mL) Final Performing Location LABORATORY C - [address] [place] [address]
--- OUTSIDE RECORDS SUMMARY | 2023-10-07 14:34 | External Medical Summary ---
Author Name Unknown Address Unknown Organization K01:LAB[facility]ATORY [facility] - [address] [place] [address] Laboratory Report Ordering Provider Test Date Status HOA CALIXTO 09/14/2023 11:22:46 Final Observation Date Value Abnormality Reference (Units ) Status Magnesium 09/14/2023 11:22:46 2.0 1.5-2.6 (m g/dL) Final Performing Location [facility] - [address] [place] [address]
--- OUTSIDE RECORDS SUMMARY | 2023-10-07 14:34 | External Medical Summary | Summary of Care ---
Author Name Unknown Organization [facility] Address [address] [facility] [place] [address] Phone [phone] Care Team Providers Care Demurrage Agent Name Role Phone Jazzy Appiah DO Primary Care Provider [phone] Reason for Visit * Reason Onset Date Comments Medication Refill 08/08/2023 Encounter Details Date Type Department Care Team (Late st Contact Info) Description 08/08/2023 Refill Cardiology, [facility] [address] [place] [address] Olu Gonzáles DO [address] [place] [address] Allergies Active Allergy Reactions Criticality Noted Date [...] the morning. 90 Tablet 1 07/09/2023 Active HYDROcodone-Acetami nophen 10-325 MG Oral TabletIndications:G [...] before bedtime. 180 Tablet 3 08/08/2023 Active Carvedilol 6.25 MG Oral Tablet (Coreg) Take 1 Tablet by mouth in the morning and 1 Tablet before bedtime. 60 Tablet 11 08/17/2022 08/08/19 24 Discontinu ed(Refill) documented as of this [...] 0 10/01/2013 Coronary artery disease invo lving [place] coronary artery of [place] heart without angina pectoris 05/20/2013 Hyperlipidemia with [...] 08/21/2014 Overview: Signed 08/21/2014 Nazanin Mayfield MD [facility] as backup Anemia 10/01/2013 04/08/2015 COPD, [...] encounter Miscellaneous Notes * Telephone Encounter - Olu Gonzáles DO - 08/08/2023 12:52 PM EST Signed Prescriptions: Disp Refills Carvedilol 6.25 MG Oral Tablet (Coreg) 180 Ta*3 Sig: Take 1 Tablet by mouth in the morning and 1 Tablet before bedtime. Authorizing Provider: OLU GONZÁLES * Telephone Encounter - Moose Loza RN - 08/08/2023 12:50 PM ESTPending Prescriptions: Disp Refills Carvedilol 6.25 MG Oral Tablet (Coreg) 180 Ta*3 Sig: Take 1 Tablet by mouth in the morning and 1 Tablet before bedtime. * Telephone Encounter - Myra Clancy CPhT - 08/08/2023 12:08 PM EST Did you pend patient's preferred pharmacy and medication before forwarding?yes Pharmacy: [facility] [address] [place] [address] Pending Prescriptions: Disp Refills Carvedilol 6.25 MG Oral Tablet (Coreg) 60 Tab*11 Sig: Take 1 Tablet by mouth in the morning and 1 Tablet before bedtime. Last Visit: 04/16/2023 (in office), Visit date not found (telemedicine) Next Visit: 09/10/2023 If no future appointments scheduled, and last appointment is greater than a year ago, please schedule patient for a follow-up appointment Last date the medication was ordered: 08/17/2022 Is this request for a controlled substance?No Urine Drug Screen: Results for orders placed [...] 09/10/2023 9:30 AM EST Office Visit Cardiology, [address] [place] [address] Olu Gonzáles [address] [place] [address] 09/10/2023 10:30 AM EST Imaging Vascular Lab, [address] [place] [address] 09/10/2023 11:30 AM EST Imaging Vascular Lab, [address] [place] [address] 09/14/2023 3:10 PM EST Office Visit Family Medicine [address] [place] [phone] Jazzy Appiah [address] [place] [address] 09/19/2023 10:30 AM EST Office Visit Vascular Surgery, [address] [place] [address] Michael Hernandez MD [address] [place] [address] Health Maintenance Due Date Last Done Comments [...] Additional history exists CKD PHOS USE SMARTSET 81072 11/23/2023 05/0 09/2022, 11/18/2021, 11/02/2020, Additional history exists Albumin/Creatinine Ratio 03/06/2024 023, 05/23/2022, 08/15/2021, Additional history exists CKD HGB USE SMARTSET 33500 03/06/202403/06, 03/06/2023, 11/22/2022, Additional history exists O2 [...] this encounter Medical Devices Implanted Type Area Shut Off Worker Device Identifier Shelf Expiration Date Model / Serial / Lot Cath Thermodilution 6fr - [id number] Implanted:Qty: 1 on 05/31/2022 by Yoli Rocha MD at [facility] [place] [employer] [id number] 01/30/2024 [id number] / / [id number] Stent Synergy Xd Mr [id number] - [id number] Implanted:Qty: 1 on 07/27/2022 by Yoli Rocha MD at [facility] Between 11/08/2023 [id number] / / [id number] documented as of this encounter Advance Directives Latest Code Status on File Code Status Date Activated Date Inactivated Comments Full Code 07/27/2022 12:56 PM 07/28/2022 1:52 PM This o rder reflects the patients wishes and were consensually agreed upon. Question Answer Comments Discussion of Advance Directives occurred with: Not Discussed due to patient's condition Care Teams Demurrage Agent Relationship Specialty Start Date End Date Jazzy Appiah DO [address] [place] [address] [place] [phone] PCP - General Internal Medicine 03/12/17 documented as of this encounter
--- OUTSIDE RECORDS SUMMARY | 2023-10-07 14:34 | External Medical Summary ---
Author Name Unknown Address Unknown Organization K01:[facility] [place] [address] [place] [address] Laboratory Report Ordering Provider Test Date Status DI BELLO 09/14/2023 11:22:46 Final Observation Date Value Abnormality Reference (Units ) Status TSH 09/14/2023 11:22:46 1.98 0.27-4.20 (uIU/mL) Final Performing Location [facility] - [address] [place] [address]
--- OUTSIDE RECORDS SUMMARY | 2023-10-07 14:35 | External Medical Summary | Summary of Care ---
Author Name Unknown Organization [facility] Address [address] [place] [address] Phone [phone] Care Team Providers Care Cork Tipper Name Role Phone Durga Camara DO Primary Care Provider [phone] Reason for Referral * Medication Prior Authorization - Closed Specialty Diagnoses / Procedures Referred By Viv apodaca Referred To Contact Diagnoses Generalized osteoarthritis Degeneration of lumbosacral intervertebral disc Durga Camara DO [address] [place] [address] [place] [address] Referral ID Status Reason Start Date Expiration Date Visits Re quested Visits Authorized [id number] Closed 999 999 Reason for Visit * Reason Onset Date Comments Medication Refill 04/26/2023 Encounter Details Date Type Department Care Team Description 04/26/2023 Refill Family Medicine [address] [place] [phone] [place] [address] GENERAL OSTEOARTHROSIS; LUMB-LUMBOSAC DISC DEGEN Allergies Active Allergy Reactions Severity Noted Date Comments Ramipril Unknown Low 01/08/2014 Gabapentin Edema Other Medium 03/30/2011 Attempted x 3 with resultant fatigue and peripheral edema Oxycodone 06/09/2019 Makes me go crazy documented as of this encounter (statuses as of 04/27/2023) Medications Medication Sig Dispensed Refills Start Date [...] the morning. 180 Tablet 1 06/30/2022 Active Clopidogrel Bisulfate 75 MG Oral Tablet (pLAVix) Take 1 Tablet by mouth in the morning. Do not start before July 28, 2022. 90 Tablet 3 07/28/2022 Active Potassium Chloride Melissa ER 10 MEQ [...] LBS OVERNIGHT 120 Tablet 3 11/20/2022 Active Omeprazole 20 MG Oral Capsule Delayed Release (PriLOSEC) Take 1 Capsule by mouth in the morning. 0 Active amLODIPine Besylate 5 MG Oral Tablet (Norvasc)Indication s:Essential hypertension with goal blood pressure less than 140/90 Take 1 Tablet by mouth in the morning. 90 Tablet 1 03/06/2023 Active Atorvastatin Calcium 20 MG Oral Tablet (Lipitor)Indication s:Hyperlipidemia with target LDL less than 70 Take 1 Tablet by mouth in the morning. 90 Tablet 1 03/06/2023 Active HYDROcodone-Acetami nophen 10-325 MG Oral TabletIndications:G eneralized osteoarthritis,Dege neration of lumbosacral intervertebral disc Take 1 Tablet by mouth 2 times a day as needed for Pain, Severe. 60 Tablet 0 04/27/2023 Active HYDROcodone-Acetami nophen 10-325 MG Oral TabletIndications:G eneralized osteoarthritis,Dege neration of lumbosacral intervertebral disc Take 1 Tablet by mouth 2 times a day as needed for Pain, Severe. 60 Tablet 0 03/29/2023 04/26/20 23 Discontinu ed(Refill) documented as of this encounter (statuses as of 04/27/2023) Active Problems Problem Noted Date S/P primary angioplasty with coronary st ent 07/27/2022 Encounter for long-term (current) use of medications 05/23/2022 Chronic diastolic heart failure 04/10/20 22 Chronic kidney disease, stage 3b 021 Overview: Per CKD protocol Thyroid nodule 10/08/2020 Chronic sialoadenitis 09/09/2020 Overview: Follows with Dr. Reyes. Treated periodically with antibiotics. Hypertensive kidney disease with stage 3 b chronic kidney disease 05/31/2020 Overview: Per CKD protocol Dysphagia 01/29/2020 COPD with emphysema 05/23/2019 B12 deficiency 11/13/2018 Other proteinuria 11/12/2018 History of colon polyps 11/04/2018 Overview: Tubular adenoma Kyphosis 10/25/2018 Vaginal atrophy 04/22/2018 COPD, mild 03/22/2018 Carotid stenosis, non-symptomatic, bilat eral 12/10/2017 MEDICATION USE AGREEMENT 06/27/2017 Drug-induced constipation 11/27/2016 Essential hypertension with goal blood p ressure less than 140/90 04/17/2016 Cervical spinal stenosis 04/17/2016 Lumbar degenerative disc disease 015 Lumbar spinal stenosis 06/29/2015 Gastroesophageal reflux disease without esophagitis 06/29/2015 Iron deficiency anemia 03/15/2015 PAD (peripheral artery disease) 03/03/20 15 Degenerative disc disease, cervical 01/20 Severe aortic stenosis by prior echocard iogram 10/01/2013 Coronary artery disease invo lving [place] coronary artery of [place] heart without angina pectoris 05/20/2013 Hyperlipidemia with target LDL less than 70 09/02/2012 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 GENERAL OSTEOARTHROSIS Hiatal hernia documented as of this encounter (statuses as of 04/27/2023) Resolved Problems Problem Noted Date Resolved Date Hypertensive kidney disease with chronic kidney disease stage III 11/04/2018 06/03/2020 Overview: Per CKD protocol Carpal tunnel syndrome of left wrist 11/11/2015 09/18/2017 Tubular adenoma of colon 04/14/2015 019 Benign esophageal stricture 03/15/201508/24 MEDICATION USE AGREEMENT 08/21/2014 018 Overview: Signed 08/21/2014 Nazanin Mayfield MD [facility] as backup Anemia 10/01/2013 04/08/2015 COPD, mild 03/31/2013 02/25/2015 Kidney disease, chronic, stage III (GFR 30-59 ml /min) 03/31/2013 12/04/2018 Inflammation of sacroiliac joint 09/15/2011 01/14/2015 Sacroiliac joint disease 09/15/2011 015 Vitamin D deficiency 05/24/2011 09/18/2017 LUMBOSACRAL NEURITIS NOS 03/08/2011 015 MYALGIA AND MYOSITIS NOS 01/05/2011 015 OCCIPITAL NEURALGIA 01/05/2011 02/25/2015 Lumbago 11/21/2010 01/14/2015 Osteoporosis 05/13/2010 10/18/2012 Cervicalgia 05/12/2010 01/14/2015 HTN, goal below 140/90 04/18/2010 6 Kidney disease, chronic, stage III (GFR 30-59 ml /min) 02/10/2010 12/07/2011 Overview: Per CKD Protocol, #1 HTN, goal to be determined 12/17/200904/29 Benign neoplasm of colon 06/08/2008 018 Overview: hyperplastic polyp--repeat 10 years COPD, severity to be determined 02/24/2008 03/31/2013 ADVANCE DIRECTIVE INFORMATION 05/22/2005 Overview: No, Advance Directive brochure given to patient at prior appointment. NONALLERGIC RHINITIS 04/29/2004 09/18/2017 Dyspnea and respiratory abnormality 04/29/2004 02/25/2015 Overview: ICD-10 update of inactive term Arthritis, rheumatoid 04/12/2004 05/30/2005 AORTIC VALVE SCLEROSIS 02/19/2004 4 Reflux esophagitis 08/21/2003 08/20/2008 Overview: Resolved per Duplicate Protocol #2. Dermatophytosis of nail 12/02/2002 02/26/20 15 Reflux esophagitis 01/14/2015 Irritable bowel syndrome 018 Precordial pain 01/14/2015 Carpal tunnel syndrome 5 Other chronic sinusitis 02/26/20 15 LUMB-LUMBOSAC DISC DEGEN 018 RHEUMATIC HEART DIS NOS 09/18/19 18 Tension headache 02/25/2015 Cervical spondylosis 01/14/2015 Other chest pain 01/14/2015 Overview: non cardiac Mitral valve prolapse 10/07/2013 Pulmonary hypertension 8 Pulmonary hypertension 8 Overview: artery Edema 02/25/2015 Overview: chronic BLE edema Rheumatic fever 01/14/2015 Overview: as a child Diaphragmatic hernia 01/14/2015 Umbilical hernia 02/25/2015 Diverticulosis 01/14/2015 Periumbilical hernia 01/14/2015 documented as of this encounter (statuses as of 04/27/2023) Immunizations Name Administration Dates Next Due COVID-19 mRNA, LNP-s, No Pre serve, 2-Dose Series (Pfizer) 11/20/2020,10/26/2020 Pneumococcal Conjugate Vacc, 13 Valent (Prevnar) 01/16/2017 Pneumococcal Polysaccharide PPV23 (Pneumovax) 04/01/2008 SEASONAL INFLUENZA, PF, 6 M & Above, IM , (FLULAVAL or FLUZONE) 05/24/2018,05/28/2017 Season Influenza, Quad, PF, Adjuvanted, 65+ Yrs, IM (FLUAD) 05/18/2020 Seasonal Influenza, Quadriva lent Hd (Fluzone Hd) [...] = 0.6 oz pur e alcohol) rarely Food Insecurity Answer Date Recorded Within the past 12 months, y ou worried that your food would run out before you got money to buy more. Never true 10/29/2019 Within the past 12 months, t he food you bought just didn't last and you didn't have money to get more. Never true 10/29/2019 Sex Assigned at Date Recorded Female 01/20/2021 12:43 PM EDT Job Start Date Occupation Industry [...] or making decisions? (5 years old or older No 07/27/2022 documented as of this encounter Miscellaneous Notes * Telephone Encounter - Durga Camara DO - 04/27/2023 12:46 PM EDTSigned Prescriptions: Disp Refills HYDROcodone-Acetaminophen 10-325 MG Oral T*60 Tab*0 Sig: Take 1 Tablet by mouth 2 times a day as needed for Pain, Severe. Authorizing Provider: DURGA CAMARA * Telephone Encounter - Olu Bishop [facility] - 04/27/2023 9:23 AM EDTPending Prescriptions: Disp Refills HYDROcodone-Acetaminophen 10-325 MG Oral T*60 Tab*0 Sig: Take 1 Tablet by mouth 2 times a day as needed for Pain, Severe. * Telephone Encounter - Olu Bishop [facility] - 04/27/2023 9:22 AM EDT I have reviewed the patients controlled substance dispensing history in the Prescription Drug Monitoring Program in compliance with the [facility] regulations before prescribing a controlled substance. PDMP checked on 04/27/2023. Pending Prescriptions: Disp Refills HYDROcodone-Acetaminophen 10-325 MG Oral *60 Tab*0 Sig: Take 1 Tablet by mouth 2 times a day as needed for Pain, Severe. Last Visit: 03/06/2023 (in office), Visit date not found (telemedicine) Next Visit: 09/14/2023 Date medication was last filled: 03/29/23 Date medication is due for refill: 04/27/23 [facility], [address] [place] Is this request for a controlled substance? Yes and Urine Drug Screen was completed Toxicology results: Results for orders placed or performed in visit on 11/22/22 PAIN MANAGEMENT DRUG PANEL, URINE W/ INTERPRETATION Result Value Compliance Interpretation Based on the medication information provided: The presence of hydrocodone, dihydrocodeine and hydromorphone is CONSISTENT with hydrocodone use. Amphetamine Negative Benzodiazepines Negative Cannabinoids Negative Cocaine Metabolite Negative Fentanyl Negative Hydrocodone / Hydromorphone Refer to confirmation results (A) Methadone Metabolite Negative Morphine / Codeine Refer to confirmation results (A) Oxycodone / Oxymorphone Refer to confirmation results (A) Valid Interpretation Normal Creatinine BOB 38 Narrative Cutoff Concentrations: Drug Level Amphetamines [...] in Results Review. Please approve if appropriate. Thank You, Olu Bellamy [facility] Clinical Pharmacist Centralized Clinical Pharmacy Services (CCPS) (formerly Telepharmacy) 04/27/2023, 9:22 AM * Telephone Encounter - WOODY Waggoner Tech - 04/26/2023 11:23 AM EDT Did you pend patient's preferred pharmacy and medication before forwarding?yes Pharmacy: [facility], [address] [place] Pending Prescriptions: Disp Refills [...] appointment Last date the medication was ordered: 03/29/2023 Is this request for a controlled substance?Yes, What was the last refill date 03/29/2023 w/ quantity 60 and dosage 10-325mg and Urine Drug Screen was completed Urine Drug Screen: Results for orders placed or performed in visit on 11/22/22 PAIN MANAGEMENT DRUG PANEL, URINE W/ INTERPRETATION Result Value Compliance Interpretation Based on the medication information provided: The presence of hydrocodone, dihydrocodeine and hydromorphone is CONSISTENT with hydrocodone use. Amphetamine Negative Benzodiazepines Negative Cannabinoids Negative Cocaine Metabolite Negative Fentanyl Negative Hydrocodone / Hydromorphone Refer to confirmation results (A) Methadone Metabolite Negative Morphine / Codeine Refer to confirmation results (A) Oxycodone / Oxymorphone Refer to confirmation results (A) Valid Interpretation Normal Creatinine BOB 38 Narrative Cutoff Concentrations: Drug Level Amphetamines [...] Plan of Treatment Upcoming Encounters Date Type Specialty Care Team Description 05/25/2023 Office Visit Gastroenterology Kaitlin Zhang CRNP [address] [place] [address] 07/02/2023 Office Visit Cardiology Olu Gonzáles DO [address] [place] [address] 09/14/2023 Office Visit Family Medicine Durga Camara, [address] [place] [address] [place] [phone] Health Maintenance Due Date Last Done Comments Chawla's Esophagus Surveilance 1943 Alpha-1 Antitrypsin 1961 Zoster Vaccines (1 of 2) 1993 DXA Scan 12/04/2020 12/04/2017, 07/24, 07/21/2010, Additional history exists Depression Screening 01/20/2022 01/20/2021 *NEPHROLOGY REFERRAL DUE TO RESISTANT HTN 11/24/2022 COVID-19 Vaccine ( season) 2023 11/20/2020, 10/26/2020 GFR 10/12/2023 04/13/2023, 02/21, 03/06/2023, Additional history exists CKD PHOS USE SMARTSET 94864 11/23/2023 05/0 09/2022, 11/18/2021, 11/02/2020, Additional history exists Albumin/Creatinine Ratio 03/06/2024 023, 05/23/2022, 08/15/2021, Additional history exists CKD HGB USE SMARTSET 51958 03/06/202403/06, 03/06/2023, 11/22/2022, Additional history exists O2 [...] this encounter Medical Devices Implanted Type Area Printed Circuit Designer Device Identifier Shelf Expiration Date Model / Serial / Lot Cath Thermodilution 6fr - [id number] Implanted:Qty: 1 on 05/31/2022 by Yoli Rocha MD at [facility] [employer] [id number] 01/30/2024 [id number] / / [id number] Stent Synergy Xd Mr [id number] - [id number] Implanted:Qty: 1 on 07/27/2022 by Yoli Rocha MD at [facility] [employer] 11/08/2023 [id number] / / [id number] documented as of this encounter Visit Diagnoses [...] Discussed due to patient's condition Care Teams Cork Tipper Relationship Specialty Start Date End Date Durga Camara, [address] [place] [address] PCP - General Internal Medicine 03/12/17 documented as of this encounter
--- OUTSIDE RECORDS SUMMARY | 2023-10-07 14:35 | External Medical Summary | Summary of Care ---
Author Name Unknown Organization [facility] Address [address] [facility] [place] [address] Phone [phone] Care Team Providers Care Hspt Tutor Name Role Phone Durga Camara DO Primary Care Provider + [phone] Reason for Visit * Reason Onset Date Comments Medication Refill 08/01/2023 Encounter Details Date Type Department Care Team (Late st Contact Info) Description 08/01/[address] [place] [address] Durga Camara [address] [place] [address] Allergies Active Allergy Reactions Criticality Noted Date Comments Ramipril Unknown Low 01/08/2014 Gabapentin Edema Other Medium 03/30/2011 Attempted x 3 with resultant fatigue and peripheral edema Oxycodone 06/09/2019 Makes me go crazy documented as of this encounter (statuses as of 08/02/2023) Medications Medication Sig Dispensed Refills Start Date [...] the morning. 90 Capsule 0 08/02/2023 Active Omeprazole 20 MG Oral Capsule Delayed Release (PriLOSEC) Take 1 Capsule by mouth in the morning. 90 Capsule 0 05/03/2023 08/01/19 24 Discontinu ed(Refill) documented as of this encounter (statuses as of 08/02/2023) Active Problems Problem Noted Date Diagnosed Date [...] 0 10/01/2013 Coronary artery disease invo lving [place] coronary artery of [place] heart without angina pectoris 05/20/2013 Hyperlipidemia with target LDL less than 70 08/23 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 02/28/2012 GENERAL OSTEOARTHROSIS Hiatal hernia documented as of this encounter (statuses as of 08/02/2023) Resolved Problems Problem Noted Date Diagnosed Date Resolved Date Hypertensive kidney disease with chronic kidney disease stage III 11/04/2018 06/03/2020 Overview: Per CKD protocol Carpal tunnel syndrome of left wrist 11/11/2015 09/18/2017 Tubular adenoma of colon 04/14/2015 Benign esophageal stricture 03/15/2015 09/18/2017 MEDICATION USE AGREEMENT 08/21/2014 Overview: Signed 08/21/2014 Nazanin Mayfield MD [facility] as backup Anemia 10/01/2013 04/08/2015 [...] as of this encounter (statuses as of 08/02/2023) Immunizations Name Administration Dates Next Due COVID-19 [...] encounter Miscellaneous Notes * Telephone Encounter - Amy Holloway RP - 08/02/2023 11:38 AM ESTSigned Prescriptions: Disp Refills Omeprazole 20 MG Oral Capsule Delayed Rele*90 Cap*0 Sig: Take 1 Capsule by mouth in the morning.Authorizing Provider: DURGA CAMARA User: CARLY HOLLOWAY * Telephone Encounter - Amy Holloway RP - 08/02/2023 11:37 AM EST RX authorized. Zero refills given until upcoming , 09/06. Thanks, Amy Holloway, PharmD Clinical Pharmacist Centralized Clinical Pharmacy Services (CCPS) (formerly Telepharmacy) [phone] 08/02/2023 11:37 AM * Telephone Encounter - Krys Brand CPhT - 08/01/2023 2:38 PM EST Did you pend patient's preferred pharmacy and medication before forwarding?yes Pharmacy: [facility] [address] [place] [address] Pending Prescriptions: Disp Refills Omeprazole 20 MG Oral Capsule Delayed Rel*90 Cap*0 Sig: Take 1 Capsule by mouth in the morning. Last Visit: 03/06/2023 (in office), Visit date not found (telemedicine) Next Visit: 09/14/2023 If no future appointments scheduled, and last appointment is greater than a year ago, please schedule patient for a follow-up appointment Last date the medication was ordered: 05/03/2023 Is this request for a controlled substance?No [...] 09/10/2023 9:30 AM EST Office Visit Cardiology, [address] [place] [address] Olu Gonzáles [address] [place] [address] 09/10/2023 10:30 AM EST Imaging Vascular Lab, [address] [place] [address] 09/10/2023 11:30 AM EST Imaging Vascular Lab, [address] [place] [address] 09/14/2023 3:10 PM EST Office Visit Family [address] [place] [phone] Durga [address] [place] [address] 09/19/2023 10:30 AM EST Office Visit Vascular Surgery, [address] [place] [address] Michael Hernandez MD [address] [place] [address] Health Maintenance Due Date Last Done Comments [...] Additional history exists CKD PHOS USE SMARTSET 29744 11/23/2023 05/0 09/2022, 11/18/2021, 11/02/2020, Additional history exists Albumin/Creatinine Ratio 03/06/2024 023, 05/23/2022, 08/15/2021, Additional history exists CKD HGB USE SMARTSET 85329 03/06/202403/06, 03/06/2023, 11/22/2022, Additional history exists O2 [...] this encounter Medical Devices Implanted Type Area Scale Clerk Device Identifier Shelf Expiration Date Model / Serial / Lot Cath Thermodilution 6fr - [id number] Implanted:Qty: 1 on 05/31/2022 by Yoli Rocha MD at [facility] [place] [employer] [id number] 01/30/2024 [id number] / / [id number] Stent Synergy Xd Mr [id number] - [id number] Implanted:Qty: 1 on 07/27/2022 by Yoli Rocha MD at [facility] [employer] 11/08/2023 [id number] / / [id number] documented as of this encounter Advance Directives Latest Code Status on File Code Status Date Activated Date Inactivated Comments Full Code 07/27/2022 12:56 PM 07/28/2022 1:52 PM This o rder reflects the patients wishes and were consensually agreed upon. Question Answer Comments Discussion of Advance Directives occurred with: Not Discussed due to patient's condition Care Teams Hspt Tutor Relationship Specialty Start Date End Date Durga Camara DO [address] [place] [address] [place] [phone] PCP - General Internal Medicine 03/12/17 documented as of this encounter
--- OUTSIDE RECORDS SUMMARY | 2023-10-07 14:35 | External Medical Summary | Summary of Care ---
Author Name Unknown Organization [facility] Address [address] [facility] [place] [address] Phone [phone] Care Team Providers Care Cafeteria Monitor Name Role Phone Jazzy Appiah DO Primary Care Provider [phone] Reason for Visit * Reason Onset Date Comments Other 04/16/2023 Encounter Details Date Type Department Care Team Description 04/16/2023 Telephone Gastroenterology, [facility] [address] [place] [address] Kaitlin Zhang CRNP [address] [place] [address] Other Allergies Active Allergy Reactions Severity Noted Date Comments Ramipril Unknown Low 01/08/2014 Gabapentin Edema Other Medium 03/30/2011 Attempted x 3 with resultant fatigue and peripheral edema Oxycodone 06/09/2019 Makes me go crazy documented as of this encounter (statuses as of 04/16/2023) Medications Medication Sig Dispensed Refills Start Date [...] the morning. 90 Tablet 1 03/06/2023 Active HYDROcodone-Acetamin ophen 10-325 MG Oral TabletIndications:Ge neralized osteoarthritis,Degen eration of lumbosacral intervertebral disc Take 1 Tablet by mouth 2 times a day as needed for Pain, Severe. 60 Tablet 0 03/29/2023 Active documented as of this encounter (statuses as of 04/16/2023) Active Problems Problem Noted Date S/P primary [...] iogram 10/01/2013 Coronary artery disease invo lving [place] coronary artery of [place] heart without angina pectoris 05/20/2013 Hyperlipidemia with target LDL less than 70 09/02/2012 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 GENERAL OSTEOARTHROSIS Hiatal hernia documented as of this encounter (statuses as of 04/16/2023) Resolved Problems Problem Noted Date Resolved Date Hypertensive kidney disease with chronic kidney disease stage III 11/04/2018 06/03/2020 Overview: Per CKD protocol Carpal tunnel syndrome of left wrist 11/11/2015 09/18/2017 Tubular adenoma of colon 04/14/2015 019 Benign esophageal stricture 03/15/201508/24 MEDICATION USE AGREEMENT 08/21/2014 018 Overview: Signed 08/21/2014 Nazanin Mayfield MD [facility] as backup Anemia [...] as of this encounter (statuses as of 04/16/2023) Immunizations Name Administration Dates Next Due COVID-19 mRNA, LNP-s, No Pre serve, 2-Dose Series (M/A-COM) 11/20/2020,10/26/2020 Pneumococcal Conjugate Vacc, 13 Valent (Prevnar) 01/16/2017 Pneumococcal Polysaccharide PPV23 (Pneumovax) 04/01/2008 Season Influenza, Quad, PF, Adjuvanted, 65+ Yrs, IM (FLUAD) 05/18/2020 Seasonal Influenza, PF, 6 mo ns & Above, IM , (Flulaval) 05/24/2018,05/28/2017 Seasonal Influenza, Quadriva lent Hd (Fluzone [...] encounter Miscellaneous Notes * Telephone Encounter - NEENA Jay - 04/16/2023 2:26 PM EDT Called an LMhome# asking pt to return call. Procedure for 05/17 has been cx'd, has f/u w/ Kaitlin in [place] on 05/25 which she should keep per Kaitlin. * Telephone Encounter - DENIA Castro - 04/16/2023 2:07 PM EDT Noted. Pls cancel EGD. She can f/u still with me on 05/25 to re-evaluate her symptoms DENIA Raza * Telephone Encounter - Mel Patten RN - 04/16/2023 1:55 PM EDT came down and asked that we assist the patient with canceling her upcoming EGD. She would like it canceled after having her appt with him today. See OV notes from today "Plan: The patient had a high-risk coronary intervention and received a drug eluting stent within the leftmain trunk this past July. She is currently on dual antiplatelet therapy and I would not recommend stopping these medications for any procedures. I would also not recommend, unless absolutely necessary any operations or procedures, until at least a minimum of a year after the above stenting procedure. Therefore she will continue her current medications and I plan follow-up again in 3 months." Kaitlin HOBSON; Do you want her to still come in for her F/U OV documented in this encounter Plan of Treatment Upcoming Encounters Date Type Specialty Care Team Description 05/25/2023 Office Visit Gastroenterology Kaitlin Zahng CRNP [address] [place] [address] 07/02/2023 Office Visit Cardiology Olu Gonzáles DO [address] [place] [address] 09/14/2023 Office Visit Family Medicine Jazzy Appiah, DO [address] [place] [address] [place] [address] Health Maintenance Due Date Last Done Comments Alpha-1 Antitrypsin 1961 Zoster Vaccines (1 of 2) 1993 DXA Scan 12/04/2020 12/04/2017, 07/24, 07/21/2010, Additional history exists COVID-19 Vaccine (3 - Pfizer series) 01/15/2021 11/20/2020, 10/26/2020 Depression Screening 01/20/2022 01/20/2021 *NEPHROLOGY REFERRAL DUE TO RESISTANT HTN 11/24/2022 GFR 10/12/2023 04/13/2023, 02/21, 03/06/2023, Additional history exists CKD PHOS USE SMARTSET 96812 11/23/2023 05/09/2022, 11/18/2021, 11/02/2020, Additional history exists Albumin/Creatinine Ratio 03/06/2024 023, 05/23/2022, 08/15/2021, Additional history exists CKD HGB USE SMARTSET 50713 03/06/202403/06, 03/06/2023, 11/22/2022, Additional history exists O2 [...] this encounter Medical Devices Implanted Type Area A Auxiliary Device Identifier Shelf Expiration Date Model / Serial / Lot Cath Thermodilution 6fr - [id number] Implanted:Qty: 1 on 05/31/2022 by Yoli Rocha MD [place] [facility] [place] [employer] [id number] 01/30/2024 [id number] / / [id number] Stent Synergy Xd Mr 4.46o01dr - [id number] Implanted:Qty: 1 on 07/27/2022 by Yoli Rocha MD [place] [facility] [place] [employer] 11/08/2023 [id number] / / [id number] documented as of this encounter Advance Directives Latest Code Status on File Code Status Date Activated Date Inactivated Comments Full Code 07/27/2022 12:56 PM 07/28/2022 1:52 PM This o rder reflects the patients wishes and were consensually agreed upon. Question Answer Comments Discussion of Advance Directives occurred with: Not Discussed due to patient's condition Care Teams Cafeteria Monitor Relationship Specialty Start Date End Date Jazzy Appiah, [address] [place] [address] PCP - General Internal Medicine 03/12/17 documented as of this encounter
--- OUTSIDE RECORDS SUMMARY | 2023-10-07 14:35 | External Medical Summary | Summary of Care ---
Author Name Unknown Organization [facility] Address [address] [facility] [place] [address] Phone [phone] Care Team Providers Care International Trade Compliance Manager Name Role Phone Jazzy Appiah DO Primary Care Provider [phone] Reason for Visit * Reason Onset Date Comments Other 04/16/2023 Encounter Details Date Type Department Care Team Description 04/16/2023 Telephone Gastroenterology, [facility] [address] [place] [address] Kaitlin Zhang CRNP [address] [place] [address] Other Allergies Active Allergy Reactions Severity Noted [...] iogram 10/01/2013 Coronary artery disease invo lving [place] coronary artery of [place] heart without angina pectoris 05/20/2013 Hyperlipidemia with [...] 018 Overview: Signed 08/21/2014 Nazanin Mayfield MD [facility] as backup Anemia 10/01/2013 04/08/2015 COPD, [...] mRNA, LNP-s, No Pre serve, 2-Dose Series ([employer]) 11/20/2020,10/26/2020 Pneumococcal Conjugate Vacc, 13 Valent (Prevnar) [...] encounter Miscellaneous Notes * Telephone Encounter - DENIA Castro - [...] Encounters Date Type Specialty Care Team Description 05/17/2023 Procedure Only Endoscopy Bonita Stock DO [address] [place] [address] 05/25/2023 Office Visit Gastroenterology Kaitlin Zhang CRNP [address] [place] [address] 07/02/2023 Office Visit Cardiology Olu Gonzáles, DO [address] [place] [address] 09/14/2023 Office Visit Family Medicine Jazzy Appiah, DO [facility] [place] [address] Health Maintenance Due Date Last Done Comments Alpha-1 Antitrypsin 1961 Zoster Vaccines (1 of 2) 1993 DXA Scan 12/04/2020 12/04/2017, 07/24, 07/21/2010, Additional history exists COVID-19 Vaccine (3 - Pfizer series) 01/15/2021 11/20/2020, 10/26/2020 Depression Screening 01/20/2022 01/20/2021 *NEPHROLOGY REFERRAL DUE TO RESISTANT HTN 11/24/2022 GFR 10/12/2023 04/13/2023, 02/21, 03/06/2023, Additional history exists CKD PHOS USE SMARTSET 93940 11/23/2023 050 09/2022, 11/18/2021, 11/02/2020, Additional history exists Albumin/Creatinine Ratio 03/06/2024 023, 05/23/2022, 08/15/2021, Additional history exists CKD HGB USE SMARTSET 03201 03/06/202403/06, 03/06/2023, 11/22/2022, Additional history exists O2 [...] encounter Medical Devices Implanted Type Area Plastic Extrusion Operator Device Identifier Shelf Expiration Date Model / Serial / Lot Cath Thermodilution 6fr - [id number] Implanted:Qty: 1 on 05/31/2022 [place]oli Rocha [place] [facility] [place] [employer] [id number] 01/30/2024 [id number] / / [id number] Stent Synergy Xd Mr [id number] - [id number] Implanted:Qty: 1 on 07/27/2022 by Yoli Rocha [place] [facility] [place] [employer] 11/08/2023 [id number] / / [id number] documented as of this encounter Advance Directives Latest Code Status on File Code Status Date Activated Date Inactivated Comments Full Code 07/27/2022 12:56 PM 07/28/2022 1:52 PM This o rder reflects the patients wishes and were consensually agreed upon. Question Answer Comments Discussion of Advance Directives occurred with: Not Discussed due to patient's condition Care Teams International Trade Compliance Manager Relationship Specialty Start Date End Date Jazzy Appiah, [address] [place] [address] PCP - General Internal Medicine 03/12/17 documented as of this encounter
--- OUTSIDE RECORDS SUMMARY | 2023-10-07 14:35 | External Medical Summary | Summary of Care ---
Author Name Unknown Organization [facility] [address] [facility] [address] Phone [phone] Care Team Providers Care Fine Craft Artist Name Role Phone Durga Camara DO Primary Care Provider [phone] Reason for Referral * Medication Prior Authorization - Closed Specialty Diagnoses / Procedures Referred By Viv apodaca Referred To Contact Diagnoses Generalized osteoarthritis Degeneration of lumbosacral intervertebral disc Durga Camara DO [address] [place] [address] [place] [address] Referral ID Status Reason Start Date Expiration Date Visits Re quested Visits Authorized [id number] Closed 999 999 Reason for Visit * Reason Onset Date Comments Medication Refill 06/27/2023 Encounter Details Date Type Department Care Team (Late st Contact Info) Description 06/27/2023 Refill Family Medicine [address] [place] [id number] Durga Camara [address] [place] [address] GENERAL OSTEOARTHROSIS; LUMB-LUMBOSAC DISC DEGEN Allergies Active Allergy Reactions Criticality Noted Date Comments Ramipril Unknown Low 01/08/2014 Gabapentin Edema Other Medium 03/30/2011 Attempted x 3 with resultant fatigue and peripheral edema Oxycodone 06/09/2019 Makes me go crazy documented as of this encounter (statuses as of 06/27/2023) Medications Medication Sig Dispensed Refills Start Date [...] in the morning. 90 Capsule 0 05/03/2023 Active HYDROcodone-Acetami nophen 10-325 MG Oral TabletIndications:G eneralized osteoarthritis,Dege neration of lumbosacral intervertebral disc Take 1 Tablet by mouth 2 times a day as needed for Pain, Severe. 60 Tablet 0 06/27/2023 Active HYDROcodone-Acetami nophen 10-325 MG Oral TabletIndications:G eneralized osteoarthritis,Dege neration of lumbosacral intervertebral disc Take 1 Tablet by mouth 2 times a day as needed for Pain, Severe. 60 Tablet 0 05/29/2023 06/27/20 23 Discontinu ed(Refill) documented as of this encounter (statuses as of 06/27/2023) Active Problems Problem Noted Date Diagnosed Date [...] 0 10/01/2013 Coronary artery disease invo lving [place] coronary artery of [place] heart without angina pectoris 05/20/2013 Hyperlipidemia with target LDL less than 70 08/23 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 02/28/2012 GENERAL OSTEOARTHROSIS Hiatal hernia documented as of this encounter (statuses as of 06/27/2023) Resolved Problems Problem Noted Date Diagnosed Date Resolved Date Hypertensive kidney disease with chronic kidney disease stage III 11/04/2018 06/03/2020 Overview: Per CKD protocol Carpal tunnel syndrome of left wrist 11/11/2015 09/18/2017 Tubular adenoma of colon 04/14/2015 Benign esophageal stricture 03/15/2015 09/18/2017 MEDICATION USE AGREEMENT 08/21/2014 Overview: Signed 08/21/2014 Nazanin Mayfield MD [facility] as backup Anemia 10/01/2013 04/08/2015 [...] as of this encounter (statuses as of 06/27/2023) Immunizations Name Administration Dates Next Due COVID-19 [...] Telephone Encounter - Durga Camara DO - 06/27/2023 3:49 PM ESTSigned Prescriptions: Disp Refills HYDROcodone-Acetaminophen 10-325 MG Oral T*60 Tab*0 Sig: Take 1 Tablet by mouth 2 times a day as needed for Pain, Severe. Authorizing Provider: DURGA CAMARA * Telephone Encounter - Allyssa Clinton RP - 06/27/2023 2:31 PM ESTPending Prescriptions: Disp Refills HYDROcodone-Acetaminophen 10-325 MG Oral T*60 Tab*0 Sig: Take 1 Tablet by mouth 2 times a day as needed for Pain, Severe. * Telephone Encounter - Allyssa Clinton RPh - 06/27/2023 2:31 PM EST I have reviewed the patients controlled substance dispensing history in the Prescription Drug Monitoring Program in compliance with the [facility] regulations before prescribing a controlled substance. PDMP checked on 06/27/2023. Pending Prescriptions: Disp Refills HYDROcodone-Acetaminophen 10-325 MG Oral *60 Tab*0 Sig: Take 1 Tablet by mouth 2 times a day as needed for Pain, Severe. Last Visit: 03/06/2023 (in office), Visit date not found (telemedicine) Next Visit: 09/14/2023 Date medication was last filled: 05/29/23 Date medication is due for refill: 06/27/23 [facility], [address] [place] Is this request for [...] in Results Review. Please approve if appropriate. Allyssa Rizzo PharmD Clinical Pharmacist [facility] ([facility]) [phone] 06/27/2023, 2:31 PM * Telephone Encounter - Cecil Valladares bead wire taper - 06/27/2023 9:15 AM EST Did you pend patient's preferred pharmacy and medication before forwarding?yes Pharmacy: [facility], [address] [place] Pending Prescriptions: Disp Refills [...] appointment Last date the medication was ordered: 05/29/2023 Is this request for a controlled substance?Yes, What was the last refill date 05/29/2023 w/ [id number] and dosage 10-325 and Urine Drug Screen [...] Care Team (Late st Contact Info) Description 08/22/2023 4:00 PM EST [facility] [place] [address] Olu Gonzáles, [address] [place] [address] 09/10/2023 10:30 AM EST Imaging Vascular Lab, [facility] [address] [place] [address] 09/10/2023 11:30 AM EST Imaging Vascular Lab, [address] [place] [address] 09/14/2023 3:10 PM EST Office Visit [address] [place] [phone] [place] [address] 09/19/2023 10:30 AM EST Office Visit Vascular Surgery, [facility] [address] [place] [address] Michael Hernandez MD [address] [place], [place] [id number] Health Maintenance Due Date Last Done Comments Alpha-1 Antitrypsin 1961 Zoster Vaccines (1 of 2) 1993 Chawla's Esophagus Surveilance 02/04/2015 02/05/2012 DXA Scan 12/04/2020 12/04/2017, 07/24, 07/21/2010, Additional history exists Depression Screening 01/20/2022 01/20/2021 *NEPHROLOGY REFERRAL DUE TO RESISTANT HTN 11/24/2022 COVID-19 Vaccine ( season) 2023 11/20/2020, 10/26/2020 GFR 10/12/2023 04/13/2023, 02/21, 03/06/2023, Additional history exists CKD PHOS USE SMARTSET 71732 11/23/2023 05/0 09/2022, 11/18/2021, 11/02/2020, Additional history exists Albumin/Creatinine Ratio 03/06/2024 023, 05/23/2022, 08/15/2021, Additional history exists CKD HGB USE SMARTSET 77416 03/06/202403/06, 03/06/2023, 11/22/2022, Additional history exists O2 [...] this encounter Medical Devices Implanted Type Area Road Maker Device Identifier Shelf Expiration Date Model / Serial / Lot Cath Thermodilution 6fr - [id number] Implanted:Qty: 1 on 05/31/2022 by Yoli Rocha MD at [facility] [place] [employer] [id number] 01/30/2024 [id number] / / [id number] Stent Synergy Xd Mr 4.33g70sw - [id number] Implanted:Qty: 1 on 07/27/2022 by Yoli Rocha MD at [facility] [place] [employer] 11/08/2023 [id number] / / [id number] documented as of this encounter Visit Diagnoses [...] Discussed due to patient's condition Care Teams Fine Craft Artist Relationship Specialty Start Date End Date Durga Camara DO [address] [place] [address] [place] [address] PCP - General Internal Medicine 03/12/17 documented as of this encounter
--- OUTSIDE RECORDS SUMMARY | 2023-10-07 14:35 | External Medical Summary | Summary of Care ---
Author Name Unknown Organization [facility] Address [address] [facility] [place] [address] Phone [phone] Care Team Providers Care Lactation Consultant Name Role Phone Durga Camara DO Primary Care Provider [phone] Reason for Visit * Reason Onset Date Comments Medication Refill 05/28/2023 Encounter Details Date Type Department Care Team (Late st Contact Info) Description 05/28/2023 Refill Family Medicine [address] [place] [address] Durga Camara [address] [place] [address] GENERAL OSTEOARTHROSIS; LUMB-LUMBOSAC DISC DEGEN Allergies Active Allergy Reactions Criticality Noted Date Comments Ramipril Unknown Low 01/08/2014 Gabapentin Edema Other Medium 03/30/2011 Attempted x 3 with resultant fatigue and peripheral edema Oxycodone 06/09/2019 Makes me go crazy documented as of this encounter (statuses as of 05/29/2023) Medications Medication Sig Dispensed Refills Start Date [...] for Pain, Severe. 60 Tablet 0 05/29/2023 Active HYDROcodone-Acetami nophen 10-325 MG Oral TabletIndications:G eneralized osteoarthritis,Dege neration of lumbosacral intervertebral disc Take 1 Tablet by mouth 2 times a day as needed for Pain, Severe. 60 Tablet 0 04/27/2023 05/28/20 23 Discontinu ed(Refill) documented as of this encounter (statuses as of 05/29/2023) Active Problems Problem Noted Date Diagnosed Date [...] 0 10/01/2013 Coronary artery disease invo lving [place] coronary artery of [place] heart without angina pectoris 05/20/2013 Hyperlipidemia with target LDL less than 70 08/23 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 02/28/2012 GENERAL OSTEOARTHROSIS Hiatal hernia documented as of this encounter (statuses as of 05/29/2023) Resolved Problems Problem Noted Date Diagnosed Date Resolved Date Hypertensive kidney disease with chronic kidney disease stage III 11/04/2018 06/03/2020 Overview: Per CKD protocol Carpal tunnel syndrome of left wrist 11/11/2015 09/18/2017 Tubular adenoma of colon 04/14/2015 Benign esophageal stricture 03/15/2015 09/18/2017 MEDICATION USE AGREEMENT 08/21/2014 Overview: Signed 08/21/2014 Nazanin Mayfield MD [facility] as backup Anemia 10/01/2013 04/08/2015 COPD, [...] as of this encounter (statuses as of 05/29/2023) Immunizations Name Administration Dates Next Due COVID-19 [...] Telephone Encounter - Durga Camara DO - 05/29/2023 12:40 PM ESTSigned Prescriptions: Disp Refills HYDROcodone-Acetaminophen 10-325 MG Oral T*60 Tab*0 Sig: Take 1 Tablet by mouth 2 times a day as needed for Pain, Severe. Authorizing Provider: DURGA CAMARA * Telephone Encounter - Trenton Contreras RPh - 05/29/2023 9:42 AM EST Pending Prescriptions: Disp Refills HYDROcodone-Acetaminophen 10-325 MG Oral T*60 Tab*0 Sig: Take 1 Tablet by mouth 2 times a day as needed for Pain, Severe. * Telephone Encounter - Trenton Contreras, [facility] - 05/29/2023 9:41 AM EST I have reviewed the patients controlled substance dispensing history in the Prescription Drug Monitoring Program in compliance with the [facility] regulations before prescribing a controlled substance. PDMP checked on 05/29/2023. Pending Prescriptions: Disp Refills HYDROcodone-Acetaminophen 10-325 MG Oral *60 Tab*0 Sig: Take 1 Tablet by mouth 2 times a day as needed for Pain, Severe. Last Visit: 03/06/2023 (in office), Visit date not found (telemedicine) Next Visit: 09/14/2023 Date medication was last filled: 04/27 Date medication is due for refill: 05/26 Pharmacy: [facility], [address] [place] Is this request for [...] Review. Please approve if appropriate. Thanks, Trenton Contreras, PharmD Clinical Pharmacist Centralized Clinical Pharmacy Services(formerly telepharmacy) [phone] 05/29/2023, 9:41 AM * Telephone Encounter - Shanae Malik PHARM Tech - 05/28/2023 8:57 AM EST Did you pend patient's preferred pharmacy and medication before forwarding?yes Pharmacy: [facility], [address] [place] Pending Prescriptions: Disp Refills [...] appointment Last date the medication was ordered: 04-27-23 Is this request for a controlled substance?Yes, What was the last refill date 04-27-23 w/ quantity 60 and dosage 10-325mg and [...] 08/22/2023 4:00 PM EST Office Visit Cardiology, [facility] [address] [facility] [place] [address] Olu Gonzáles DO [address] [facility] [place] [address] 09/14/2023 3:10 PM EST Office Visit Family Medicine [address] [place] [phone] Durga Camara [address] [place] [address] Health Maintenance Due Date Last Done Comments Alpha-1 Antitrypsin 1961 Zoster Vaccines (1 of 2) 1993 Chawla's Esophagus Surveilance 02/04/2015 02/05/2012 DXA Scan 12/04/2020 12/04/2017, 07/24, 07/21/2010, Additional history exists Depression Screening 01/20/2022 01/20/2021 *NEPHROLOGY REFERRAL DUE TO RESISTANT HTN 11/24/2022 COVID-19 Vaccine ( season) 2023 11/20/2020, 10/26/2020 GFR 10/12/2023 04/13/2023, 02/21, 03/06/2023, Additional history exists CKD PHOS USE SMARTSET 82158 11/23/2023 05/0 09/2022, 11/18/2021, 11/02/2020, Additional history exists Albumin/Creatinine Ratio 03/06/2024 023, 05/23/2022, 08/15/2021, Additional history exists CKD HGB USE SMARTSET 48245 03/06/202403/06, 03/06/2023, 11/22/2022, Additional history exists O2 [...] this encounter Medical Devices Implanted Type Area Maternity Floor Supervisor Device Identifier Shelf Expiration Date Model / Serial / Lot Cath Thermodilution 6fr - [id number] Implanted:Qty: 1 on 05/31/2022 by Yoli Rocha MD at [facility] [place] [employer] [id number] 01/30/2024 [id number] / / [id number] Stent Synergy Xd Mr 4.62s15dh - [id number] Implanted:Qty: 1 on 07/27/2022 by Yoli Rocha MD at [facility] [place] [employer] 11/08/2023 [id number] / / [id number] documented as of this encounter Visit Diagnoses [...] Discussed due to patient's condition Care Teams Lactation Consultant Relationship Specialty Start Date End Date Durga Camara DO [address] [place] [address] [place] [address] PCP - General Internal Medicine 03/12/17 documented as of this encounter
--- OUTSIDE RECORDS SUMMARY | 2023-10-07 14:35 | External Medical Summary | Summary of Care ---
Author Name Unknown Organization [facility] Address [address] [facility] [address] Phone [phone] Care Team Providers Care Employee Relations Administrator Name Role Phone Jazzy Appiah DO Primary Care Provider [phone] Reason for Visit * Reason Onset Date Comments Medication Refill 05/02/2023 Encounter Details Date Type Department Care Team Description 05/02/2023 Refill Family Medicine [address] [place] [phone] Jazzy Appiah [address] [place] [address] Allergies Active Allergy Reactions Severity Noted Date Comments Ramipril Unknown Low 01/08/2014 Gabapentin Edema Other Medium 03/30/2011 Attempted x 3 with resultant fatigue and peripheral edema Oxycodone 06/09/2019 Makes me go crazy documented as of this encounter (statuses as of 05/03/2023) Medications Medication Sig Dispensed Refills Start Date [...] Pain, Severe. 60 Tablet 0 04/27/2023 Active Omeprazole 20 MG Oral Capsule Delayed Release (PriLOSEC) Take 1 Capsule by mouth in the morning. 90 Capsule 0 05/03/2023 Active Omeprazole 20 MG Oral Capsule Delayed Release (PriLOSEC) Take 1 Capsule by mouth in the morning. 0 05/02/20 23 Discontinu ed(Refill) documented as of this encounter (statuses as of 05/03/2023) Active Problems Problem Noted Date S/P primary [...] iogram 10/01/2013 Coronary artery disease invo lving saxman coronary artery of saxman heart without angina pectoris 05/20/2013 Hyperlipidemia with target LDL less than 70 09/02/2012 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 GENERAL OSTEOARTHROSIS Hiatal hernia documented as of this encounter (statuses as of 05/03/2023) Resolved Problems Problem Noted Date Resolved Date Hypertensive kidney disease with chronic kidney disease stage III 11/04/2018 06/03/2020 Overview: Per CKD protocol Carpal tunnel syndrome of left wrist 11/11/2015 09/18/2017 Tubular adenoma of colon 04/14/2015 019 Benign esophageal stricture 03/15/201508/24 MEDICATION USE AGREEMENT 08/21/2014 018 Overview: Signed 08/21/2014 Nazanin Mayfield MD [facility] as backup Anemia 10/01/2013 04/08/2015 [...] as of this encounter (statuses as of 05/03/2023) Immunizations Name Administration Dates Next Due COVID-19 [...] encounter Miscellaneous Notes * Telephone Encounter - Cosmo Angel MD - 05/03/2023 1:26 PM EDTSigned Prescriptions: Disp Refills Omeprazole 20 MG Oral Capsule Delayed Rele*90 Cap*0 Sig: Take 1 Capsule by mouth in the morning. Authorizing Provider: COSMO ANGEL * Telephone Encounter - Mary Roblero [facility] - 05/03/2023 1:23 PM EDTPending Prescriptions: Disp Refills Omeprazole 20 MG Oral Capsule Delayed Rele*90 Cap*0 Sig: Take 1 Capsule by mouth in the morning. * Telephone Encounter - Mary Roblero RP - 05/03/2023 1:23 PM EDT Pharmacists cannot authorize refills for meds listed as "historical" in chart. Please approve if appropriate. Thank you, Mary Roblero PharmD. Clinical Pharmacist Pharmacy Refill Call Center 05/03/2023, 1:23 PM * Telephone Encounter - Ora Paul CPhT - 05/02/2023 2:11 PM EDT Medication(s) is/are listed as "Historical". Pt confirmed the current dosage, directions, and qty that they are normally prescribed, as reflected in the pending order below. This is also indicated from encounter on 03/06/23. Confirmed patient has been seen within the last year.. Please review and approve if appropriate. Pending Prescriptions: Disp Refills Omeprazole 20 MG Oral Capsule Delayed Rel*90 Cap*0 Sig: Take 1 Capsule by mouth in the morning. Last Visit: 03/06/2023 (in office), Visit date not found (telemedicine) Next Visit: 09/14/2023 If no future appointments scheduled, and last appointment is greater than a year ago, please schedule patient for a follow-up appointment Last date the medication was ordered: Historical Patient Phone Numbers Labs: Lab Results Component [...] Zhang CRNP [address] [place] [address] 07/02/2023 Office Visit Cardiology Olu Gonzáles DO [address] [place] [address] 09/14/2023 Office Visit Family Medicine Jazzy Appiah, [address] [place] [address] Health Maintenance Due Date Last Done Comments Alpha-1 Antitrypsin 1961 Zoster Vaccines (1 of 2) 1993 Chawla's Esophagus Surveilance 02/04/2015 02/05/2012 DXA Scan 12/04/2020 12/04/2017, 07/24, 07/21/2010, Additional history exists Depression Screening 01/20/2022 01/20/2021 *NEPHROLOGY REFERRAL DUE TO RESISTANT HTN 11/24/2022 COVID-19 Vaccine ( season) 2023 11/20/2020, 10/26/2020 GFR 10/12/2023 04/13/2023, 02/21, 03/06/2023, Additional history exists CKD PHOS USE SMARTSET 83957 11/23/2023 05/0 09/2022, 11/18/2021, 11/02/2020, Additional history exists Albumin/Creatinine Ratio 03/06/2024 023, 05/23/2022, 08/15/2021, Additional history exists CKD HGB USE SMARTSET 02619 03/06/202403/06, 03/06/2023, 11/22/2022, Additional history exists O2 [...] this encounter Medical Devices Implanted Type Area Medical Auditor Device Identifier Shelf Expiration Date Model / Serial / Lot Cath Thermodilution 6fr - [id number] Implanted:Qty: 1 on 05/31/2022 by Yoli Rocha [place] [facility] [place] [employer] [id number] 01/30/2024 [id number] / / [id number] Stent Synergy Xd Mr 4.22k31dj - [id number] Implanted:Qty: 1 on 07/27/2022 by Yoli Rocha MD at [facility] [place] [employer] 11/08/2023 [id number] / / [id number] documented as of this encounter Advance Directives Latest Code Status on File Code Status Date Activated Date Inactivated Comments Full Code 07/27/2022 12:56 PM 07/28/2022 1:52 PM This o rder reflects the patients wishes and were consensually agreed upon. Question Answer Comments Discussion of Advance Directives occurred with: Not Discussed due to patient's condition Care Teams Employee Relations Administrator Relationship Specialty Start Date End Date Jazzy Appiah, [address] [place] [address] PCP - General Internal Medicine 03/12/17 documented as of this encounter
--- OUTSIDE RECORDS SUMMARY | 2023-10-07 14:35 | External Medical Summary | Summary of Care ---
Author Name Unknown Organization [facility] Address [address] [facility] [place] [address] Phone [phone] Care Team Providers Care Advertising Campaign Manager Name Role Phone Jazzy Appiah DO Primary Care Provider [phone] Reason for Visit * Reason Onset Date Comments Medication Refill 07/09/2023 Encounter Details Date Type Department Care Team (Late st Contact Info) Description 07/09/[address] [place] [address] Jazzy Appiah DO [address] [place] [address] [place] [address] Medication Refill Allergies Active Allergy Reactions Criticality Noted Date Comments Ramipril Unknown Low 01/08/2014 Gabapentin Edema Other Medium 03/30/2011 Attempted x 3 with resultant fatigue and peripheral edema Oxycodone 06/09/2019 Makes me go crazy documented as of this encounter (statuses as of 07/17/2023) Medications Medication Sig Dispensed Refills Start Date [...] Pain, Severe. 60 Tablet 0 06/27/2023 Active Clopidogrel Bisulfate 75 MG Oral Tablet (pLAVix) Take 1 Tablet by mouth in the morning. 90 Tablet 1 07/09/2023 Active Clopidogrel Bisulfate 75 MG Oral Tablet (pLAVix) Take 1 Tablet by mouth in the morning. Do not start before July 28, 2022. 90 Tablet 3 07/28/2022 07/09/20 23 Discontinu ed(Refill) documented as of this encounter (statuses as of 07/17/2023) Active Problems Problem Noted Date Diagnosed Date [...] 0 10/01/2013 Coronary artery disease invo lving ekuk coronary artery of ekuk heart without angina pectoris 05/20/2013 Hyperlipidemia with target LDL less than 70 08/23 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 02/28/2012 GENERAL OSTEOARTHROSIS Hiatal hernia documented as of this encounter (statuses as of 07/17/2023) Resolved Problems Problem Noted Date Diagnosed Date Resolved Date Hypertensive kidney disease with chronic kidney disease stage III 11/04/2018 06/03/2020 Overview: Per CKD protocol Carpal tunnel syndrome of left wrist 11/11/2015 09/18/2017 Tubular adenoma of colon 04/14/2015 Benign esophageal stricture 03/15/2015 09/18/2017 MEDICATION USE AGREEMENT 08/21/2014 Overview: Signed 08/21/2014 Nazanin Mayfield MD [facility] as backup Anemia 10/01/2013 04/08/2015 COPD, [...] as of this encounter (statuses as of 07/17/2023) Immunizations Name Administration Dates Next Due COVID-19 [...] encounter Miscellaneous Notes * Telephone Encounter - Vianca Wood CPhT - 07/17/2023 9:24 AM EST Pt calling to request Clopidogrel Bisulfate 75 MG Oral Tablet (pLAVix) . Informed pt that RX is available at their pharmacy. Pt verbalized understanding and stated they will check with their pharmacyregarding this medication. Thank you, Vianca Wood CPht Car [facility] ([facility]) (formerly Telepharmacy) 07/17/2023, 9:24 AM * Telephone Encounter - Jazzy Appiah DO - 07/09/2023 1:58 PM EST Had stent placed 07/2022. Will continue Plavix. * Telephone Encounter - Belia Jo glue cook - 07/09/2023 10:37 AM EST Patient calling requesting Clopidogrel Bisulfate 75 MG Oral Tablet (pLAVix) . Upon chart review, medication was last prescribed by hospital. Pt did schedule a hospital follow up visit. Please advise if you wish to continue this therapy for the patient. Thank you for your assistance Belia Jo [facility] ([facility]) (Formerly Telepharmacy) 07/09/2023,10:37 AM documented in this encounter Plan of Treatment Upcoming Encounters Date Type Department Care Team (Late st Contact Info) Description 09/10/2023 9:30 AM EST Office Visit Cardiology, [address] [place] [address] Olu Gonzáles, [address] [place] [address] 09/10/2023 10:30 AM EST Imaging Vascular Lab, [facility], [address] [place] [address] 09/10/2023 11:30 AM EST Imaging Vascular Lab, [facility], [address] [place] [address] 09/14/2023 3:10 PM EST Office Visit Family Medicine [address] [phone] [place] [address] 09/19/2023 10:30 AM EST Office Visit Vascular Surgery, [address] [place] [address] Michael [place] [facility] [address] [facility] [address] Health Maintenance Due Date Last Done Comments [...] Additional history exists CKD PHOS USE SMARTSET 96944 11/23/2023 05/0 09/2022, 11/18/2021, 11/02/2020, Additional history exists Albumin/Creatinine Ratio 03/06/2024 023, 05/23/2022, 08/15/2021, Additional history exists CKD HGB USE SMARTSET 51913 03/06/202403/06, 03/06/2023, 11/22/2022, Additional history exists O2 [...] this encounter Medical Devices Implanted Type Area Integration Architect Device Identifier Shelf Expiration Date Model / Serial / Lot Cath Thermodilution 6fr - [id number] Implanted:Qty: 1 on 05/31/2022 by Yoli Rocha [place] [facility] [place] [employer] [id number] 01/30/2024 [id number] / / [id number] Stent Synergy Xd Mr 4.03k09md - [id number] Implanted:Qty: 1 on 07/27/2022 by Yoli Rocha MD [place] [facility] [place] [employer] 11/08/2023 [id number] / / [id number] documented as of this encounter Advance Directives Latest Code Status on File Code Status Date Activated Date Inactivated Comments Full Code 07/27/2022 12:56 PM 07/28/2022 1:52 PM This o rder reflects the patients wishes and were consensually agreed upon. Question Answer Comments Discussion of Advance Directives occurred with: Not Discussed due to patient's condition Care Teams Advertising Campaign Manager Relationship Specialty Start Date End Date Jazzy Appiah DO [address] [place] [address] [place] [address] PCP - General Internal Medicine 03/12/17 documented as of this encounter
--- OUTSIDE RECORDS SUMMARY | 2023-10-07 14:35 | External Medical Summary | Summary of Care ---
Author Name Unknown Organization [facility] Address [address] [facility] [place] [address] Phone [phone] Care Team Providers Care Business Systems Manager Name Role Phone Durga Camara DO Primary Care Provider [phone] Reason for Visit * Reason Onset Date Comments Medication Refill 07/26/2023 Encounter Details Date Type Department Care Team (Late st Contact Info) Description 07/26/2023 Refill Family Medicine [address] [place] [address] Durga Camara DO [address] [place] [address] [place] [address] GENERAL OSTEOARTHROSIS; LUMB-LUMBOSAC DISC DEGEN Allergies Active Allergy Reactions Criticality Noted Date Comments Ramipril Unknown Low 01/08/2014 Gabapentin Edema Other Medium 03/30/2011 Attempted x 3 with resultant fatigue and peripheral edema Oxycodone 06/09/2019 Makes me go crazy documented as of this encounter (statuses as of 07/27/2023) Medications Medication Sig Dispensed Refills Start Date [...] the morning. 90 Capsule 0 05/03/2023 Active Clopidogrel Bisulfate 75 MG Oral Tablet (pLAVix) Take 1 Tablet by mouth in the morning. 90 Tablet 1 07/09/2023 Active HYDROcodone-Acetami nophen 10-325 MG Oral TabletIndications:G eneralized osteoarthritis,Dege neration of lumbosacral intervertebral disc Take 1 Tablet by mouth 2 times a day as needed for Pain, Severe. 60 Tablet 0 07/27/2023 Active HYDROcodone-Acetami nophen 10-325 MG Oral TabletIndications:G eneralized osteoarthritis,Dege neration of lumbosacral intervertebral disc Take 1 Tablet by mouth 2 times a day as needed for Pain, Severe. 60 Tablet 0 06/27/2023 07/26/19 24 Discontinu ed(Refill) documented as of this encounter (statuses as of 07/27/2023) Active Problems Problem Noted Date Diagnosed Date [...] 0 10/01/2013 Coronary artery disease invo lving chemehuevi coronary artery of che[place]vi heart without angina pectoris 05/20/2013 Hyperlipidemia with target LDL less than 70 08/23 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 02/28/2012 GENERAL OSTEOARTHROSIS Hiatal hernia documented as of this encounter (statuses as of 07/27/2023) Resolved Problems Problem Noted Date Diagnosed Date Resolved Date Hypertensive kidney disease with chronic kidney disease stage III 11/04/2018 06/03/2020 Overview: Per CKD protocol Carpal tunnel syndrome of left wrist 11/11/2015 09/18/2017 Tubular adenoma of colon 04/14/2015 Benign esophageal stricture 03/15/2015 09/18/2017 MEDICATION USE AGREEMENT 08/21/2014 Overview: Signed 08/21/2014 Nazanin Mayfield MD [facility] as backup Anemia 10/01/2013 04/08/2015 COPD, [...] as of this encounter (statuses as of 07/27/2023) Immunizations Name Administration Dates Next Due COVID-19 mRNA, LNP-s, No Pre serve, 2-Dose Series ([email or web address]) 11/20/2020,10/26/2020 Pneumococcal Conjugate Vacc, 13 Valent (Prevnar) [...] Telephone Encounter - Durga Camara DO - 07/27/2023 1:14 PM ESTSigned Prescriptions: Disp Refills HYDROcodone-Acetaminophen 10-325 MG Oral T*60 Tab*0 Sig: Take 1 Tablet by mouth 2 times a day as needed for Pain, Severe. Authorizing Provider: DURGA CAMARA * Telephone Encounter - Hanna Roberts [facility] - 07/27/2023 11:33 AM EST Pending Prescriptions: Disp Refills HYDROcodone-Acetaminophen 10-325 MG Oral T*60 Tab*0 Sig: Take 1 Tablet by mouth 2 times a day as needed for Pain, Severe. Electronically signed by Hanna Roberts [facility] at 07/27/2023 11:33 AM EST * Telephone Encounter - Hanna Robertsija, [facility] - 07/27/2023 11:33 AM EST I have reviewed the patients controlled substance dispensing history in the Prescription Drug Monitoring Program in compliance with the [facility] regulations before prescribing a controlled substance. PDMP checked on 07/27/2023. Pending Prescriptions: Disp Refills HYDROcodone-Acetaminophen 10-325 MG Oral *60 Tab*0 Sig: Take 1 Tablet by mouth 2 times a day as needed for Pain, Severe. Last Visit: 03/06/2023 (in office), Visit date not found (telemedicine) Next Visit: 09/14/2023 Date medication was last filled: 06/27 Date medication is due for refill: 07/26 Pharmacy: [facility], [address] [place] Is this request for [...] [facility]acy Services ([facility]) (formerly Telepharmacy) [phone] 07/27/2023,11:33 AM Electronically signed by Hanna Roberts [facility] at 07/27/2023 11:33 AM EST * Telephone Encounter - Rad Mcdonough, king maker - 07/26/2023 12:26 PM EST Did you pend patient's preferred pharmacy and medication before forwarding?yes [facility] [address] [place] Pending Prescriptions: Disp Refills [...] appointment Last date the medication was ordered: 06/27/2023 Is this request for a controlled substance?Yes, What was the last refill date 06/27/2023 w/ quantity 60 and dosage 10-325mg and [...] 09/10/2023 9:30 AM EST Office Visit Cardiology, [address] [place] [address] Olu Gonzáles, [address] [place] [address] 09/10/2023 10:30 AM EST Imaging Vascular Lab, [place] [address] [place] [address] 09/10/2023 11:30 AM EST Imaging Vascular Lab, [address] [place] [address] 09/14/2023 3:10 PM EST Office Visit Family Medicine [address] [place] [phone] [address] [place] [address] 09/19/2023 10:30 AM EST Office Visit Vascular Surgery, [facility] [address] [place] [address] Michael [place] MD [address] [facility] [place] [id number] Health Maintenance Due Date Last Done Comments [...] Additional history exists CKD PHOS USE SMARTSET 68830 11/23/2023 05/0 09/2022, 11/18/2021, 11/02/2020, Additional history exists Albumin/Creatinine Ratio 03/06/2024 023, 05/23/2022, 08/15/2021, Additional history exists CKD HGB USE SMARTSET 07185 03/06/202403/06, 03/06/2023, 11/22/2022, Additional history exists O2 [...] this encounter Medical Devices Implanted Type Area Access Database Developer Device Identifier Shelf Expiration Date Model / Serial / Lot Cath Thermodilution 6fr - [id number] Implanted:Qty: 1 on 05/31/2022 by Yoli Rocha MD at [facility] [place] [employer] [id number] 01/30/2024 [id number] / / [id number] Stent Synergy Xd Mr 4.50d96sm - [id number] Implanted:Qty: 1 on 07/27/2022 by Yoli Rocha MD at [facility] [place] [employer] 11/08/2023 [id number] / / [id number] documented as of this encounter Visit Diagnoses [...] Discussed due to patient's condition Care Teams Business Systems Manager Relationship Specialty Start Date End Date Durga Camara DO [address] [place] [address] [place] [address] PCP - General Internal Medicine 03/12/17 documented as of this encounter
--- OUTSIDE RECORDS SUMMARY | 2023-10-07 14:35 | External Medical Summary | Summary of Care ---
Author Name Unknown Organization [facility] Address [address] [facility] [place] [address] Phone [phone] Care Team Providers Care Test Data Developer Name Role Phone Jazzy Appiah DO Primary Care Provider [phone] Reason for Visit * Reason Onset Date Comments Medication Refill 07/09/2023 Encounter Details Date Type Department Care Team (Late st Contact Info) Description 07/09/[address] [place] [address] Jazzy Appiah DO [address] [place] [address] [place] [address] Medication Refill Allergies Active Allergy Reactions Criticality Noted Date Comments Ramipril Unknown Low 01/08/2014 Gabapentin Edema Other Medium 03/30/2011 Attempted x 3 with resultant fatigue and peripheral edema Oxycodone 06/09/2019 Makes me go crazy documented as of this encounter (statuses as of 07/09/2023) Medications Medication Sig Dispensed Refills Start Date [...] as of this encounter (statuses as of 07/09/2023) Active Problems Problem Noted Date Diagnosed Date [...] 0 10/01/2013 Coronary artery disease invo lving [place] coronary artery of [place] heart without angina pectoris 05/20/2013 Hyperlipidemia with target LDL less than 70 08/23 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 02/28/2012 GENERAL OSTEOARTHROSIS Hiatal hernia documented as of this encounter (statuses as of 07/09/2023) Resolved Problems Problem Noted Date Diagnosed Date Resolved Date Hypertensive kidney disease with chronic kidney disease stage III 11/04/2018 06/03/2020 Overview: Per CKD protocol Carpal tunnel syndrome of left wrist 11/11/2015 09/18/2017 Tubular adenoma of colon 04/14/2015 Benign esophageal stricture 03/15/2015 09/18/2017 MEDICATION USE AGREEMENT 08/21/2014 Overview: Signed 08/21/2014 Nazanin Mayfield MD [facility] as backup Anemia 10/01/2013 04/08/2015 [...] as of this encounter (statuses as of 07/09/2023) Immunizations Name Administration Dates Next Due COVID-19 [...] encounter Miscellaneous Notes * Telephone Encounter - Jazzy Appiah DO - 07/09/2023 1:58 PM EST Had stent placed 07/2022. Will continue Plavix. * Telephone Encounter - Belia Jo riprap placer - 07/09/2023 10:37 AM EST Patient calling requesting Clopidogrel Bisulfate 75 MG Oral Tablet (pLAVix) . Upon chart review, medication was last prescribed by hospital. Pt did schedule a hospital follow up visit. Please advise if you wish to continue this therapy for the patient. Thank you for your assistance Belia Jo Supervisor Liquid Yeast II [facility] ([facility]) (Formerly Telepharmacy) 07/09/2023,10:37 AM documented in this encounter Plan of Treatment Upcoming Encounters Date Type Department Care Team (Late st Contact Info) Description 09/10/2023 9:30 AM EST Office Visit Cardiology, [facility] [address] [place] [address] Olu Gonzáles, DO [address] [place] [address] 09/10/2023 10:30 AM EST Imaging Vascular Lab, [facility] [address] [facility] [place] [address] [place] [address] 09/10/2023 11:30 AM EST Imaging Vascular Lab, [facility] [address] [place] [address] 09/14/2023 3:10 PM EST Office Visit Family [address] [place] [phone] [address] [place] [address] 09/19/2023 10:30 AM EST Office Visit Vascular Surgery, [facility] [address] [place] [address] Michael Hernandez MD [address] [place], [place] [address] Health Maintenance Due Date Last Done Comments Alpha-1 Antitrypsin 1961 Zoster Vaccines (1 of 2) 1993 Chawla's Esophagus Surveilance 02/04/2015 02/05/2012 DXA Scan 12/04/2020 12/04/2017, 07/24, 07/21/2010, Additional history exists Depression Screening 01/20/2022 01/20/2021 *NEPHROLOGY REFERRAL DUE TO RESISTANT HTN 11/24/2022 COVID-19 Vaccine ( season) 2023 11/20/2020, 10/26/2020 GFR 10/12/2023 04/13/2023, 02/21, 03/06/2023, Additional history exists CKD PHOS USE SMARTSET 05319 11/23/2023 05/0 09/2022, 11/18/2021, 11/02/2020, Additional history exists Albumin/Creatinine Ratio 03/06/2024 023, 05/23/2022, 08/15/2021, Additional history exists CKD HGB USE SMARTSET 42131 03/06/202403/06, 03/06/2023, 11/22/2022, Additional history exists O2 [...] this encounter Medical Devices Implanted Type Area Scrap Preparation Supervisor Device Identifier Shelf Expiration Date Model / Serial / Lot Cath Thermodilution 6fr - [id number] Implanted:Qty: 1 on 05/31/2022 by Yoli Rocha MD at [facility] [place] [employer] [id number] 01/30/2024 [id number] / / [id number] Stent Synergy Xd Mr [id number] - [id number] Implanted:Qty: 1 on 07/27/2022 by Yoli Rocha MD at [facility] [place] [employer] 11/08/2023 [id number] / / [id number] documented as of this encounter Advance Directives Latest Code Status on File Code Status Date Activated Date Inactivated Comments Full Code 07/27/2022 12:56 PM 07/28/2022 1:52 PM This o rder reflects the patients wishes and were consensually agreed upon. Question Answer Comments Discussion of Advance Directives occurred with: Not Discussed due to patient's condition Care Teams Test Data Developer Relationship Specialty Start Date End Date Jazzy Appiah DO [address] [place] [address] [place] [address] PCP - General Internal Medicine 03/12/17 documented as of this encounter
--- OUTSIDE RECORDS SUMMARY | 2023-10-07 14:35 | External Medical Summary | Summary of Care ---
Author Name Unknown Organization [facility] Address [address] [place] [address] Phone [phone] Care Team Providers Care Math Specialist Name Role Phone Jazzy Appiah DO Primary Care Provider Reason for Visit * Reason Onset Date Comments case management 05/11/2023 Encounter Details Date Type Department Care Team Description 05/11/2023 Telephone Care Coordination [address] [place] [address] Nessa Edwards, KHARI [address] [place], [place] [id number] case management Allergies Active Allergy Reactions Severity Noted Date Comments Ramipril Unknown Low 01/08/2014 Gabapentin Edema Other Medium 03/30/2011 Attempted x 3 with resultant fatigue and peripheral edema Oxycodone 06/09/2019 Makes me go crazy documented as of this encounter (statuses as of 05/11/2023) Medications Medication Sig Dispensed Refills Start Date [...] the morning. 90 Capsule 0 05/03/2023 Active documented as of this encounter (statuses as of 05/11/2023) Active Problems Problem Noted Date S/P primary [...] iogram 10/01/2013 Coronary artery disease invo lving [place] coronary artery of [place] heart without angina pectoris 05/20/2013 Hyperlipidemia with target LDL less than 70 09/02/2012 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 GENERAL OSTEOARTHROSIS Hiatal hernia documented as of this encounter (statuses as of 05/11/2023) Resolved Problems Problem Noted Date Resolved Date Hypertensive kidney disease with chronic kidney disease stage III 11/04/2018 06/03/2020 Overview: Per CKD protocol Carpal tunnel syndrome of left wrist 11/11/2015 09/18/2017 Tubular adenoma of colon 04/14/2015 019 Benign esophageal stricture 03/15/201508/24 MEDICATION USE AGREEMENT 08/21/2014 018 Overview: Signed 08/21/2014 Nazanin Mayfield MD [facility] as backup Anemia 10/01/2013 04/08/2015 [...] as of this encounter (statuses as of 05/11/2023) Immunizations Name Administration Dates Next Due COVID-19 mRNA, LNP-s, No Pre serve, 2-Dose Series (Vecast) 11/20/2020,10/26/2020 Pneumococcal Conjugate Vacc, 13 Valent (Prevnar) [...] encounter Miscellaneous Notes * Telephone Encounter - Nessa Edwards RN - 05/11/2023 9:32 AM EDT Attempted to contact patient. No answer, Left a message on machine requesting a call back. [facility] Follow-up Routine Attempted Phone Call First Attempt Call Outcome Left Voicemail/Message Plan Will await call back from patient documented in this encounter Plan of Treatment Upcoming Encounters Date Type Specialty Care Team Description 05/25/2023 Office Visit Gastroenterology Kaitlin Zhang CRNP [address] [place] [address] 08/22/2023 Office Visit Cardiology Olu Gonzáles DO [address] [place] [address] 09/14/2023 Office Visit Family Medicine Jazzy Appiah[address] [place] [address] Health Maintenance Due Date Last Done Comments Alpha-1 Antitrypsin 1961 Zoster Vaccines (1 of 2) 1993 Chawla's Esophagus Surveilance 02/04/2015 02/05/2012 DXA Scan 12/04/2020 12/04/2017, 07/24, 07/21/2010, Additional history exists Depression Screening 01/20/2022 01/20/2021 *NEPHROLOGY REFERRAL DUE TO RESISTANT HTN 11/24/2022 COVID-19 Vaccine ( season) 2023 11/20/2020, 10/26/2020 GFR 10/12/2023 04/13/2023, 02/21, 03/06/2023, Additional history exists CKD PHOS USE SMARTSET 19066 11/23/2023 05/0 09/2022, 11/18/2021, 11/02/2020, Additional history exists Albumin/Creatinine Ratio 03/06/2024 023, 05/23/2022, 08/15/2021, Additional history exists CKD HGB USE SMARTSET 78997 03/06/202403/06, 03/06/2023, 11/22/2022, Additional history exists O2 [...] this encounter Medical Devices Implanted Type Area Manufacturing Engineering Professor Device Identifier Shelf Expiration Date Model / Serial / Lot Cath Thermodilution 6fr - [id number] Implanted:Qty: 1 on 05/31/2022 by Yoli Rocha MD at [facility] [place] [employer] [id number] 01/30/2024 [id number] / / [id number] Stent Synergy Xd Mr [id number] - [id number] Implanted:Qty: 1 on 07/27/2022 by Yoli Rocha MD at [facility] [place] [employer] 11/08/2023 [id number] / / [id number] documented as of this encounter Advance Directives Latest Code Status on File Code Status Date Activated Date Inactivated Comments Full Code 07/27/2022 12:56 PM 07/28/2022 1:52 PM This o rder reflects the patients wishes and were consensually agreed upon. Question Answer Comments Discussion of Advance Directives occurred with: Not Discussed due to patient's condition Care Teams Math Specialist Relationship Specialty Start Date End Date Jazzy Appiah[address] [place] [address] PCP - General Internal Medicine 03/12/17 documented as of this encounter
--- OUTSIDE RECORDS SUMMARY | 2023-10-07 14:35 | External Medical Summary | Summary of Care ---
Author Name Unknown Organization [facility] Address [address] [facility] [place] [address] Phone [phone] Care Team Providers Care Paper Pattern Inspector Name Role Phone Jazzy Appiah DO Primary Care Provider [phone] Reason for Visit * Reason Onset Date Comments Other 04/16/2023 Encounter Details Date Type Department Care Team Description 04/16/2023 Telephone Gastroenterology, [facility] [address] [place] [address] Kaitlin Zhang CRNP [address] [place] [address] Other Allergies Active Allergy Reactions Severity Noted [...] iogram 10/01/2013 Coronary artery disease invo lving [place] coronary artery of [place] heart without angina pectoris 05/20/2013 Hyperlipidemia with [...] 018 Overview: Signed 08/21/2014 Nazanin Mayfield MD [facility] as backup Anemia 10/01/2013 04/08/2015 COPD, mild [...] mRNA, LNP-s, No Pre serve, 2-Dose Series (Interview Master) 11/20/2020,10/26/2020 Pneumococcal Conjugate Vacc, 13 Valent (Prevnar) [...] Stock DO [address] [place] [address] 05/25/2023 Office Visit Gastroenterology Kaitlin Zhang CRNP [address] [place] [address] 07/02/2023 Office Visit Cardiology Olu Gonzáles, DO [address] [place] [address] 09/14/2023 Office Visit Family Medicine Jazzy Appiah, DO [facility] [place] [address] Health Maintenance Due Date Last Done Comments Alpha-1 Antitrypsin 1961 Zoster Vaccines (1 of 2) 1993 DXA Scan 12/04/2020 12/04/2017, 07/24, 07/21/2010, Additional history exists COVID-19 Vaccine (3 - Pfizer series) 01/15/2021 11/20/2020, 10/26/2020 Depression Screening 01/20/2022 01/20/2021 *NEPHROLOGY REFERRAL DUE TO RESISTANT HTN 11/24/2022 GFR 10/12/2023 04/13/2023, 02/21, 03/06/2023, Additional history exists CKD PHOS USE SMARTSET 62669 11/23/2023 050 09/2022, 11/18/2021, 11/02/2020, Additional history exists Albumin/Creatinine Ratio 03/06/2024 023, 05/23/2022, 08/15/2021, Additional history exists CKD HGB USE SMARTSET 32905 03/06/202403/06, 03/06/2023, 11/22/2022, Additional history exists O2 [...] this encounter Medical Devices Implanted Type Area English Teacher Device Identifier Shelf Expiration Date Model / Serial / Lot Cath Thermodilution 6fr - [id number] Implanted:Qty: 1 on 05/31/2022 by Yoli Rocha MD at [facility] [place] [employer] [id number] 01/30/2024 [id number] / / [id number] Stent Synergy Xd Mr [id number] - [id number] Implanted:Qty: 1 on 07/27/2022 by Yoli Rocha MD at [facility] [employer] 11/08/2023 [id number] / / [id number] documented as of this encounter Advance Directives Latest Code Status on File Code Status Date Activated Date Inactivated Comments Full Code 07/27/2022 12:56 PM 07/28/2022 1:52 PM This o rder reflects the patients wishes and were consensually agreed upon. Question Answer Comments Discussion of Advance Directives occurred with: Not Discussed due to patient's condition Care Teams Paper Pattern Inspector Relationship Specialty Start Date End Date Jazzy Appiah, [address] [place] [address] PCP - General Internal Medicine 03/12/17 documented as of this encounter
--- OUTSIDE RECORDS SUMMARY | 2023-10-07 14:36 | External Medical Summary | Summary of Care ---
Author Name Unknown Organization [facility] Address [address] [facility] [place] [address] Phone [phone] Care Team Providers Care Halfway House Counselor Name Role Phone Jazzy Appiah Primary Care Provider [phone] Reason for Visit * Reason Comments Outpatient Testing Encounter Details Date Type Department Care Team Description 04/13/2023 Laboratory Laboratory [address] [place] [address] [place] [address] SHEA (acute kidney injury) ([facility]); Hyperkalemia Allergies Active Allergy Reactions Severity Noted Date [...] the morning. 30 Tablet 11 08/04/2022 Active Carvedilol 6.25 MG Oral Tablet (Coreg) [...] iogram 10/01/2013 Coronary artery disease invo lving [place] coronary artery of [place] heart without angina pectoris 05/20/2013 Hyperlipidemia with [...] 018 Overview: Signed 08/21/2014 Nazanin Mayfield MD [facility] as backup Anemia 10/01/2013 04/08/2015 [...] Seasonal Influenza, Quadriva lent Hd (Fluzone Hd) 05/23/2022,05/13/2021 Seasonal Influenza, Quadriva lent, No Preserve, IM [...] Encounters Date Type Specialty Care Team Description 04/16/2023 Office Visit Cardiology Olu Gonzáles, [address] [place] [address] 05/17/2023 Procedure Only Endoscopy Bonita Stock, [address] [place] [address] 05/25/2023 Office Visit Gastroenterology Kaitlin Zhang CRNP [address] [place] [address] 09/14/2023 Office Visit Family Medicine Jazzy Appiah, [address] [place] [address] Health Maintenance Due Date Last Done Comments Alpha-1 Antitrypsin 1961 Zoster Vaccines (1 of 2) 1993 DXA Scan 12/04/2020 12/04/2017, 07/24, 07/21/2010, Additional history exists COVID-19 Vaccine (3 - Pfizer series) 01/15/2021 11/20/2020, 10/26/2020 Depression Screening 01/20/2022 01/20/2021 *NEPHROLOGY REFERRAL DUE TO RESISTANT HTN 11/24/2022 Influenza Vaccine (FLU shot) (#1) 2023 05/23/2022, 05/13/2021, 05/18/2020, Additional history exists GFR 10/12/2023 04/13/2023, 02/21, 03/06/2023, Additional history exists CKD PHOS USE SMARTSET 09893 11/23/2023 05/0 09/2022, 11/18/2021, 11/02/2020, Additional history exists Albumin/Creatinine Ratio 03/06/2024 023, 05/23/2022, 08/15/2021, Additional history exists CKD HGB USE SMARTSET 03281 03/06/202403/06, 03/06/2023, 11/22/2022, Additional history exists O2 ASSESSMENT COMPLETED IN PAST YEAR FOR COPD 03/06/2024 03/06/2023 DTaP,Tdap,and Td Vaccines (2 - Td or Tdap) 11/15/2028 11/15/2018, 03/05/2009, 07/23/1986 Pneumococcal Vaccine: 65+ Years Completed 01/16/2017, 04/01/2008 GARDASIL-HPV IMMUNIZATION SERIES Aged Out No longer eligible based on patient's age to complete this topic Hepatitis B Aged Out No longer eligi ble based on patient's age to complete this topic MENINGOCOCCAL (MENACTRA/MENVEO) Aged Out No longer eligible based on patient's age to complete this topic documented as of this encounter Medical Devices Implanted Type Area Assembler Skylights Device Identifier Shelf Expiration Date Model / Serial / Lot Cath Thermodilution 6fr - [id number] Implanted:Qty: 1 on 05/31/2022 by Yoli Rocha MD at [facility] [place] [employer] [id number] 01/30/2024 [id number] / / [id number] Stent Synergy Xd Mr [id number] - [id number] Implanted:Qty: 1 on 07/27/2022 by Yoli Rocha MD at [facility] [place] [employer] 11/08/2023 [id number] / / [id number] documented as of this encounter Procedures Procedure Name Priority Date/Time Associated Diagnosis Comments BASIC METABOLIC PANEL Routine 04/13/2023 10:05 AM EDT SHEA (acute kidney injury) (HCC) Hyperkalemia documented in this encounter Results * (ABNORMAL) BASIC METABOLIC PANEL (04/13/2023 10:05 AM EDT) BUN 76(H) 6 - 20 mg/dL 04/14/2023 2:03 AM EDT [facility] Creatinine 1.7(H) 0.5 - 1.0 mg/dL 04/14/2023 2:03 AM EDT [facility] Estimated Glomerular Filtration Rate 30(L) >=60 mL/min 04/14/2023 2:03 AM EDT [facility] Comment:eGFR is calculated b ased on the CKD-EPI 2020 equation Sodium 137 135 - 146 mmol/L 04/14/2023 2:03 AM EDT [facility] Potassium 5.6(H) 3.5 - 5.1 mmol/L 04/14/2023 2:03 AM EDT [facility] Chloride 104 98 - 107 mmol/L 04/14/2023 2:03 AM EDT [facility] CO2 22 22 - 32 mmol/L 04/14/2023 2:03 AM EDT [facility] Anion Gap 11 7 - 15 mmol/L 04/14/2023 2:03 AM EDT [facility] Glucose 101 70 - 120 mg/dL 04/14/2023 2:03 AM EDT [facility] Calcium 9.4 8.4 - 10.2 mg/dL 04/14/2023 2:03 AM EDT [facility] Blood Venous blood specimen / Unknown Venipuncture / Unknown 04/13/2023 10:05 AM EDT 04/13/2023 10:05 AM EDT Cosmo Morrow MD LAB BLOOD ORDERABLES [facility] [address] [facility] [place] [address] documented in this encounter Visit Diagnoses Diagnosis SHEA (acute kidney injury) (HCC) Acute kidney failure, unspecified Hyperkalemia Hyperpotassemia documented in this encounter Advance Directives Latest Code Status on File Code Status Date Activated Date Inactivated Comments Full Code 07/27/2022 12:56 PM 07/28/2022 1:52 PM This o rder reflects the patients wishes and were consensually agreed upon. Question Answer Comments Discussion of Advance Directives occurred with: Not Discussed due to patient's condition Care Teams Halfway House Counselor Relationship Specialty Start Date End Date Jazzy Appiah, [address] [place] [address] PCP - General Internal Medicine 03/12/17 documented as of this encounter
--- OUTSIDE RECORDS SUMMARY | 2023-10-07 14:36 | External Medical Summary | Summary of Care ---
Author Name Unknown Organization [facility] Address [address] [facility] [place] [address] Phone [phone] Care Team Providers Care Gear Finisher Name Role Phone Jazzy Appiah DO Primary Care Provider [phone] Reason for Visit * Reason Onset Date Comments Pre-op Clearance Medication Administration 04/16/2023 Flu an d/or Pneumo Inj Encounter Details Date Type Department Care Team Description 04/16/2023 Office Visit Cardiology, [facility] [address] [facility] [address] Olu Gonzáles DO [address] [place] [address] Coronary artery disease involving yakutat coronary artery of yakutat heart without angina pectoris*; Aortic valve stenosis, etiology of cardiac valve disease unspecified; Rheumatic aortic stenosis; S/P primary angioplasty with coronary stent; Need for prophylactic vaccination and inoculation against influenza Allergies Active Allergy Reactions Severity Noted Date [...] iogram 10/01/2013 Coronary artery disease invo lving yakutat coronary artery of yakutat heart without angina pectoris 05/20/2013 Hyperlipidemia with [...] 018 Overview: Signed 08/21/2014 Nazanin Mayfield MD [facility] as backup Anemia 10/01/2013 04/08/2015 COPD, [...] mRNA, LNP-s, No Pre serve, 2-Dose Series ([employer]) 11/20/2020,10/26/2020 Pneumococcal Conjugate Vacc, 13 Valent (Prevnar) [...] Sign Reading Time Taken Comments Blood Pressure 156/64 04/16/2023 1:14 PM EDT Pulse 60 04/16/2023 1:14 PM EDT Temperature - - Respiratory Rate 18 04/16/2023 1:14 PM EDT Oxygen Saturation - - Inhaled Oxygen Concentration - - Weight 63 kg (139 lb) 04/16/2023 1:14 PM EDT Height - - Body Mass Index 24.62 07/27/2022 9:45 AM EST documented in this [...] this encounter Patient Instructions * Patient Instructions* Moose Loza RN - 04/16/2023 1:26 PM EDT ~~PATIENT INSTRUCTIONS FOR FLU SHOT~~ Possible side effects of influenza vaccine, (flu shot), are usually mild and include: 1. Soreness or redness at injection site 2. Low grade fever 3. Body aches You may use Tylenol/Acetaminophen as needed for these symptoms. LET YOUR DOCTOR KNOW IMMEDIATELY IF YOU HAVE DIFFICULTY BREATHING OR SWALLOWING, EXPERIENCE ITCHINGOF FEET OR HANDS, HAVE SWELLING OF EYES, FACE OR INSIDE OF NOSE. 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 HPI: This is an 78-year-old female with a complex cardiac history. 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 She has been followed by the valve clinic and in July underwent a cardiac catheterization that suggested moderate aortic stenosis along with aortic insufficiency. She was also noted to have a high- grade stenosisof the left main trunk and several days later underwent a complex intervention receiving a drug-eluting stent within the left main trunk. She has done well following that procedure. Unfortunately, she does have Barretts esophagus and previous dilatation of the esophagus. Over the past several months she has noted difficulty swallowing her food. She was assessed by the GI service and they recommended an EGD with dilatation if necessary. Past Medical History: Diagnosis Date Anemia 10/01/2013 [...] Chronic coronary artery disease 05/20/2013 COPD, mild ([facility]) 03/31/2013 Degeneration of lumbosacral intervertebral disc [...] below 140/90 04/18/2010 Inflammation of sacroiliac joint ([facility]) 09/15/2011 Iron deficiency anemia 03/15/2015 Irritable bowel syndrome Kidney disease, chronic, stage III (GFR 30-59 ml/min) ([facility]) 03/31/2013 Knee joint replacement status 5-5-14 left knee Lumbago 11/21/2010 Lumbar degenerative disc disease 06/29/2015 Lumbar spinal stenosis 06/29/2015 LUMBOSACRAL NEURITIS NOS 03/08/2011 Mitral valve prolapse MYALGIA AND MYOSITIS NOS 01/05/2011 NONALLERGIC RHINITIS 04/29/2004 OCCIPITAL NEURALGIA 01/05/2011 Osteoporosis 05/13/2010 Other chest pain non cardiac Other chronic sinusitis recurrent sinusitis PAD (peripheral artery disease) ([facility]) 03/03/2015 Periumbilical hernia Popliteal synovial cyst R leg Precordial pain noncardiac. Normal cardiac cath 1991 Pulmonary hypertension ([facility]) artery PVD (peripheral vascular disease) ([facility]) Reflux esophagitis RESPIRATORY ABNORM NEC 04/29/2004 Rheumatic fever as a child Rheumatic heart disease h/o systolic heart murmur Sacroiliac joint disease 09/15/2011 Senile osteoporosis based on FRAX, major risk of 22% Spinal stenosis of lumbar region without neurogenic claudication 2000 seen on MRI Tension headache Tietze's disease costochondritis Tubular adenoma of colon 04/14/15 Umbilical hernia VITAMIN D DEFICIENCY NOS 05/24/2011 Patient Active Problem List Diagnosis Code GENERAL OSTEOARTHROSIS M15.9 Hiatal hernia K44.9 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 K22.70 Hyperlipidemia with target LDL less than 70 E78.5 Coronary artery disease involving yakutat coronary artery of yakutat heart without angina pectoris I25.10 Severe aortic stenosis by prior echocardiogram I35.0 Degenerative disc disease, cervical M50.30 PAD (peripheral artery disease) ([facility]) I73.9 Iron deficiency anemia D50.9 Lumbar degenerative disc disease M51.36 Lumbar spinal stenosis M48.061 Gastroesophageal reflux disease without esophagitis K21.9 Essential hypertension with goal blood pressure less than 140/90 I10 Cervical spinal stenosis M48.02 Drug-induced constipation K59.03 MEDICATION USE AGREEMENT [id number] Carotid stenosis, non-symptomatic, bilateral I65.23 COPD, mild ([facility]) J44.9 Vaginal atrophy N95.2 Kyphosis M40.209 History of colon polyps Z86.010 Other proteinuria R80.8 B12 deficiency E53.8 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.9 Dysphagia R13.10 Hypertensive kidney disease with stage 3b chronic kidney disease I12.9, N18.32 Chronic sialoadenitis K11.23 Thyroid nodule E04.1 Chronic kidney disease, stage 3b ([facility]) N18.32 Chronic diastolic heart failure ([facility]) I50.32 Encounter for long-term (current) use of medications Z79.899 S/P primary angioplasty with coronary stent Z95.5 Past Surgical History: Procedure Laterality Date ABD/PELVIS CT W/ + W/O IV AND W/PO CONTRAST 10/07/08 constipation, small EHH, periumbiical hernia ANESTHESIA FOR CAT OR MRI SCAN N/A 09/26/2018 ANESTHESIA FOR NON-INVASIVE IMAGING (MRI OR CT) performed by [facility] ARTHROPLASTY KNEE TOTAL 5-5-14 dr rodriguez left knee CARDIAC ANGIOPLASTY, PERCUTANEOUS, 1 ARTERY Left 07/27/2022 PTCA, CARDIAC ANGIOPLASTY, PERCUTANEOUS, 1 ARTERY performed by Yoli Rocha MD at [facility] CARPAL TUNNEL SURGERY 08/05/08 right CATHETERIZE LEFT HEART THRU SKIN 1991 Cardiac Catheterization, Left Heart, was normal [facility] COLONOSCOPY W/ BIOPSY (RECTUM) 06/08/2008 hyperplastic polyp--repeat 10 years COLONOSCOPY, DIAGNOSTIC (RECTUM) 04/14/2015 adenomatous polyp, melanosis, repeat 5 yrs/[facility] CORONARY ANGIOGRAPHY W/RIGHT+LEFT CATH N/A 01/08/2019 CORONARY ANGIOGRAPHY W/RIGHT+LEFT CATH performed by Shyam Son MD at [facility] CORONARY ANGIOGRAPHY W/RIGHT+LEFT CATH Right 05/31/2022 CORONARY ANGIOGRAPHY W/RIGHT+LEFT CATH performed by Yoli Rocha MD at [facility] CV STRESS TREADMILL [...] DIAGNOSTIC performed by Ricky Rogers MD at [facility] EGD, FLEXIBLE, DIAGNOSTIC 03/08/2015 Barretts, HH/inpt [facility] EGD, FLEXIBLE, DIAGNOSTIC 06/12/2017 Barretts, hiatal hernia, repeat 2 yrs/[facility] EGD, FLEXIBLE, DIAGNOSTIC 07/07/2019 normal / [facility] EGD, FLEXIBLE, TRANSENDOSCOPIC DILATION <30MM 02/19/09 done mild esophagitis, possible short segment barretts, small hiatal hernia,few polyps in stomach path pending EGD, FLEXIBLE, W/BIOPSY 08/31/[address] EGD, FLEXIBLE, W/BIOPSY 02/19/09 done acid reflux EGD, FLEXIBLE, W/BIOPSY 05/06/10 biopsies--Barretts esophagitis--repeat 2 years EGD, W/ENDOSCOPIC US 04/10/2012 UPPER GI ENDOSCOPY ENDOSCOPIC ULTRASOUND performed by Gilmar Soler MD at OR [facility] FLUORO BARIUM ENEMA W AIR normal PAH LAPAROSCOPY, CHOLECYSTECTOMY WITH CHOLANGIOGRAPHY 06/12/12 Lap radha, with cholangiogram, lysis of abdominal adhesions, incisional hernia repair with atrium mesh 06/12/12 Dr. Metcalf at [facility] LYSIS OF LABIAL LESIONS N/A 12/23/2015 LYSIS OF LABIAL ADHESIONS performed by Jordan Rodriguez MD at OR [facility] MAMMOGRAM SCREENING-BILATERAL 01/26/06 stable microcalcifications on left, category 2 benign MOBILE DXA 12/03/2017 Femur T -2.4, fx risk 15%/4.2%, high risk, treatment recommended REMOVAL OF APPENDIX 1947 Appendectomy REMOVAL OF OVARY(S) 1986 Oophrectomy,Uni/Bilat REPAIR UMBILICAL HERNIA, UNDER 5 YR Hernia,Umbilical SACROILIAC JOINT INJECT W/GUIDANCE 06/09/2019 INJECTION SACROILIAC JOINT performed by He Simons, at OR [facility] SIGMOIDOSCOPY, DIAGNOSTIC negative Dr. Bowen VAGINAL [...] Sister Arthritis Sister Arthritis Brother Social History Tobacco Use Smoking status: Former Packs/day: 3.00 Years: 30.00 Pack years: 90.00 Types: Cigarettes Quit date: 10/24/1976 Years since quittin.5 Smokeless tobacco: Never Tobacco comments: quit 1988 [...] 1 Tablet by mouth in the morning. Vitamin B6 50 MG Oral Tablet Take [...] mouth in the morning. 180 Tablet 1 Clopidogrel Bisulfate 75 MG Oral Tablet (pLAVix) Take 1 Tablet by mouth in the morning. Do not start before July 28, 2022. 90 Tablet 3 Carvedilol 6.25 MG Oral Tablet (Coreg) Take 1 Tablet by mouth in the morning and 1 Tablet before bedtime. 60 Tablet 11 hydrALAZINE HCl 50 MG Oral Tablet (Apresoline) Take 1 Tablet by mouth in the morning and 1 Tablet at noon and 1 Tablet before bedtime. 270 Tablet 3 Torsemide 10 MG Oral Tablet (Demadex) TAKE 1 TABLET BY MOUTH ONCE DAILY IN THE MORNING MAY TAKE 1 EXTRA TORSEMIDE IF WEIGHT GAIN OF 3-4 LBS OVERNIGHT 120 Tablet 3 Omeprazole 20 MG Oral Capsule Delayed Release (PriLOSEC) Take 1 Capsule by mouth in the morning. amLODIPine Besylate 5 MG Oral Tablet (Norvasc) Take 1 Tablet by mouth in the morning. 90 Tablet 1 Atorvastatin Calcium 20 MG Oral Tablet (Lipitor) Take 1 Tablet by mouth in the morning. 90 Tablet 1 HYDROcodone-Acetaminophen 10-325 MG Oral Tablet Take 1 Tablet by mouth 2 times a day as needed for Pain, Severe. 60 Tablet 0 Nitroglycerin 0.3 MG Sublingual Tablet Sublingual (NITROSTAT) Place 1 Tablet under the tongue every5 minutes as needed for Pain, Chest. up to 3 doses in 15 minutes. (Patient not taking: Reported on 04/16/2023) 100 Tab 11 Turmeric Curcumin 500 MG Oral Capsule Take by mouth once. (Patient not taking: Reported on 04/16/2023) Potassium Chloride Melissa ER 10 MEQ Oral Tablet Extended Release Take 1 Tablet by mouth in the morning. (Patient not taking: Reported on 04/16/2023) 30 Tablet 11 No current facility-administered medications for this visit. ROS: Review of Systems: See HPI for pertinent positives. All other review of systems is negative. PHYSICAL EXAMINATION BP 156/64 | Pulse 60 | Resp 18 | Wt 63 kg (139 lb) | BMI 24.62 kg/m | BSA 1.67 m Body mass index is 24.62 kg/m. General: no acute distress and stated age Head: normocephalic, no masses, lesions, tenderness or abnormalities Eyes: conjunctiva are pink and non-injected, sclera clear Neck: supple, no adenopathy, no bruits, normal jugular venous pulse, no hepatojugular reflux Chest: normal shape and normal respiratory effort Lungs: clear to auscultation and percussion Cardiac Exam: - regular rate & rhythm, systolic murmur - normal S1, normal S2 Pulses: 2(+) throughout Abdomen: abdomen soft, non-tender, no abnormal masses and no hepatosplenomegaly Musculoskeletal: no gait disturbance, no joint inflammation, no deforming arthritis Extremities: no edema and no cyanosis Neuro: grossly normal exam Laboratory Data Review: EKG reveals a sinus rhythm with left ventricular hypertrophy and poor R-wave progression across theprecordium Impression: 1. Aortic valve disease likely related to childhood rheumatic fever with a combination of aortic insufficiency and moderate aortic stenosis by cardiac catheterization 2022 2. PCI of the left main trunk with a drug-eluting stent July 2022 3. chronic atypical chest pain and a history of severe spinal kyphosis with chronic pain syndrome and degenerative joint disease. 4. Hypertension dyslipidemia5. Heart failure on the basis of valvular heart disease 6. History of Barretts esophagus with prioresophageal dilatation Plan: The patient had a high-risk coronary intervention [...] and I plan follow-up again in 3 months. This chart was completed in part utilizing [employer] Speech Voice Recognition Software. Grammatical errors, random word insertions, prounoun errors, and incomplete sentences are an occasional consequence of this system due to software limitations, ambient noise, and hardware issues. Any formal questions or concerns about the content, text, or information contained within the body of this dictation should be directly addressed to the provider for clarification. I spent a total of 40-54 minutes (exact time 42 mins) on the date of service in preparation, delivery, and documentation of the care provided to Georgina Pugh excluding any time spent in the performance of separately billed services. Olu Gonzáles DO Cardiology[address] [address] 04/16/2023 * Moose Loza RN - 04/16/2023 1:25 PM EDT PRE - ADMINISTRATION DOCUMENTATION Are you experiencing any cold symptoms or fever? No Have you had Guillain-[place] Syndrome (an illness that causes paralysis) within the last 6 weeks? No Have you had the flu shot in the past? YES Have you ever had a reaction to the flu shot? No Moose Loza RN, 04/16/2023 1:26 PM Immunization Administration Documentation Time Out Procedure Performed: Yes Patient Identified (Ask Name/Date of ): Yes Does the patient have a fever greater than 101 degrees today? No Patient allergic to latex? No VFC Stock: No Injection(s) verified: Yes, Injection Name: flu Verified Side and Site: Yes Verified Shot(s) with Parent(s)/Patient: Yes documented in this encounter Nursing Notes * Moose Loza RN - 04/16/2023 1:13 PM EDT Examination Room: room 17 Name: Georgina Pugh Date of : (1945). Reason for Visit: for pre-op clearance Interim Hospitalization(s): denies Problems/Concerns: denies Chest Pain/SOB: PERDUE with chest discomfort [facility] Discussed: Not applicable [...] Team Description 05/17/2023 Procedure Only Endoscopy Bonita Stock, [address] [place] [address] 05/25/2023 Office Visit Gastroenterology Kaitlin Zhang CRNP [address] [place] [address] 07/02/2023 Office Visit Cardiology Olu Gonzáles DO [address] [place] [address] 09/14/2023 Office Visit Family Medicine Jazzy Appiah, [address] [place] [address] Scheduled Orders Name Type Priority Associated Diagnoses Orde r Schedule EKG COMPLETE (TRACING AND INTERP) EKG Routine Aortic valve stenosis, etiology of cardiac valve disease unspecified Rheumatic aortic stenosis Coronary artery disease involving yakutat coronary artery of yakutat heart without angina pectoris S/P primary angioplasty with coronary stent Ordered: 04/16/2023 Health Maintenance Due Date Last Done Comments Alpha-1 Antitrypsin 1961 Zoster Vaccines (1 of 2) 1993 DXA Scan 12/04/2020 12/04/2017, 07/24, 07/21/2010, Additional history exists COVID-19 Vaccine (3 - Pfizer series) 01/15/2021 11/20/2020, 10/26/2020 Depression Screening 01/20/2022 01/20/2021 *NEPHROLOGY REFERRAL DUE TO RESISTANT HTN 11/24/2022 GFR 10/12/2023 04/13/2023, 02/21, 03/06/2023, Additional history exists CKD PHOS USE SMARTSET 54211 11/23/2023 05/0 09/2022, 11/18/2021, 11/02/2020, Additional history exists Albumin/Creatinine Ratio 03/06/2024 023, 05/23/2022, 08/15/2021, Additional history exists CKD HGB USE SMARTSET 44197 03/06/202403/06, 03/06/2023, 11/22/2022, Additional history exists O2 [...] this encounter Medical Devices Implanted Type Area Java Xml Developer Device Identifier Shelf Expiration Date Model / Serial / Lot Cath Thermodilution 6fr - [id number] Implanted:Qty: 1 on 05/31/2022 by Yoli Rocha MD at [facility] [employer]tyone SEBASTIAN [id number] 01/30/2024 [id number] / / [id number] Stent Synergy Xd Mr [id number] - [id number] Implanted:Qty: 1 on 07/27/2022 by Yoli Rocha MD at [facility] [employer]ver[employer]ix 11/08/2023 [id number] / / [id number] documented as of this encounter Visit Diagnoses Diagnosis Coronary artery disease involving yakutat coronary artery of yakutat heart without angina pectoris- Primary Aortic valve stenosis, etiology of cardiac valve disease unspecified Rheumatic aortic stenosis S/P primary angioplasty with coronary stent Postsurgical percutaneous transluminal coronary angioplasty status Need for prophylactic vaccination and inoculation against influenza documented in this encounter Advance Directives Latest Code Status on File Code Status Date Activated Date Inactivated Comments Full Code 07/27/2022 12:56 PM 07/28/2022 1:52 PM This o rder reflects the patients wishes and were consensually agreed upon. Question Answer Comments Discussion of Advance Directives occurred with: Not Discussed due to patient's condition Care Teams Gear Finisher Relationship Specialty Start Date End Date Jazzy Appiah[address] [place] [address] PCP - General Internal Medicine 03/12/17 documented as of this encounter"
--- OUTSIDE RECORDS SUMMARY | 2023-10-07 14:36 | External Medical Summary | Summary of Care ---
Author Name Unknown Organization [facility] Address [address] [place] [address] Phone [phone] Care Team Providers Care Retail Sales Manager Name Role Phone Jazzy Moya DO Primary Care Provider [phone] Reason for Visit * Reason Onset Date Comments Test Results 03/12/2023 Encounter Details Date Type Department Care Team Description 03/12/2023 Telephone Family Medicine [address] [place] [address] Jazzy Moya DO [address] [place] [address] [place] [id number] Test Results Allergies Active Allergy Reactions Severity Noted Date Comments Ramipril Unknown Low 01/08/2014 Gabapentin Edema Other Medium 03/30/2011 Attempted x 3 with resultant fatigue and peripheral edema Oxycodone 06/09/2019 Makes me go crazy documented as of this encounter (statuses as of 04/12/2023) Medications Medication Sig Dispensed Refills Start Date [...] needed for Pain, Severe. 60 Tablet 0 02/28/2023 03/28/20 23 Discontinu ed(Refill) documented as of this encounter (statuses as of 04/12/2023) Active Problems Problem Noted Date S/P primary [...] iogram 10/01/2013 Coronary artery disease invo lving [place] coronary artery of [place] heart without angina pectoris 05/20/2013 Hyperlipidemia with target LDL less than 70 09/02/2012 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 GENERAL OSTEOARTHROSIS Hiatal hernia documented as of this encounter (statuses as of 04/12/2023) Resolved Problems Problem Noted Date Resolved Date Hypertensive kidney disease with chronic kidney disease stage III 11/04/2018 06/03/2020 Overview: Per CKD protocol Carpal tunnel syndrome of left wrist 11/11/2015 09/18/2017 Tubular adenoma of colon 04/14/2015 019 Benign esophageal stricture 03/15/201508/24 MEDICATION USE AGREEMENT 08/21/2014 018 Overview: Signed 08/21/2014 Nazanin Mayfield MD [facility] as backup Anemia 10/01/2013 04/08/2015 COPD, [...] as of this encounter (statuses as of 04/12/2023) Immunizations Name Administration Dates Next Due COVID-19 mRNA, LNP-s, No Pre serve, 2-Dose Series ([employer]) 11/20/2020,10/26/2020 Pneumococcal Conjugate Vacc, 13 Valent [...] Miscellaneous Notes * Telephone Encounter - Adela Peters CPhT - 04/12/2023 12:49 PM EDT Patient calling to ask if the lab work was ordered., Aware there is 1 lab order not complete. Thank you, Adela Peters Supervisor [facility] ([facility] (Former[facility]) 04/12/2023,12:50 PM * Telephone Encounter - Samira Foley CMA - 03/14/2023 2:30 PM EDT I called and let her know. * Telephone Encounter - Cosmo Morrow MD - 03/14/2023 12:41 PM EDT Certainly. That sounds fine. * Telephone Encounter - Jess Daley LPN - 03/14/2023 12:03 PM EDT Pt wants to go back to taking full pill of Atorvastatin instead of 1/2 tablet? Pain wasn't as bad when she took 1 tablet 1/2 tablet made pain worse. Please advise if she can restart a whole tablet. * Telephone Encounter - Cosmo Morrow MD - 03/14/2023 11:36 AM EDT Does she want to go back to pravastatin? * Telephone Encounter - Samira Foley CMA - 03/14/2023 9:09 AM EDT Provider to address: She doesn't think she is taking potassium. I told her she needs to stop it if she is. She also said that the pain in her legs has been worse since cutting the atorvastatin in half. I told her I would let you know. Reason for Call: Test Results Contact: Telephone Call Contact Type: Test Results Outcome: forwarded to dr moay for advice Total Time including non face to face (minutes): 10 * Telephone Encounter - Bonita Martin LPN - 03/12/2023 2:15 PM EDT Provider to address: left message for pt to return my call. Reason for Call: Test Results Contact: Telephone Call Contact Type: Follow-up Outcome: Total Time including non face to face (minutes): 5 * Telephone Encounter - Jazzy Moya DO - 03/12/2023 8:34 AM EDT Please call patient: She continues to have significant iron deficiency anemia. She should take the flintstones with ironbut if she does not tolerate this she should let me know, as she may need to get IV iron. Her kidney function is worse and her potassium level is high. I would like her to stop her potassium supplement and have repeat blood work this week to check herkidney function. She can come anytime for this. The remainder of her tests were normal. documented in this encounter Plan of Treatment Upcoming Encounters Date Type Specialty Care Team Description 04/16/2023 Office Visit Cardiology Olu Gonzáles, [address] [place] [address] 05/17/2023 Procedure Only Endoscopy Bonita Stock DO [address] [place] [address] 05/25/2023 Office Visit Gastroenterology Kaitlin Zhang CRNP [address] [place] [address] 09/14/2023 Office Visit Family Medicine Jazzy Moya[address] [place] [address] Health Maintenance Due Date Last Done Comments Alpha-1 Antitrypsin 1961 Zoster Vaccines (1 of 2) 1993 DXA Scan 12/04/2020 12/04/2017, 07/24, 07/21/2010, Additional history exists COVID-19 Vaccine (3 - Pfizer series) 01/15/2021 11/20/2020, 10/26/2020 Depression Screening 01/20/2022 01/20/2021 *NEPHROLOGY REFERRAL DUE TO RESISTANT HTN 11/24/2022 Influenza Vaccine (FLU shot) (#1) 2023 05/23/2022, 05/13/2021, 05/18/2020, Additional history exists GFR 09/14/2023 03/14/2023, 02/20, 11/22/2022, Additional history exists CKD PHOS USE SMARTSET 52819 11/23/2023 05/0 09/2022, 11/18/2021, 11/02/2020, Additional history exists Albumin/Creatinine Ratio 03/06/2024 023, 05/23/2022, 08/15/2021, Additional history exists CKD HGB USE SMARTSET 10606 03/06/202403/06, 03/06/2023, 11/22/2022, Additional history exists O2 [...] this encounter Medical Devices Implanted Type Area Heel Shaver Device Identifier Shelf Expiration Date Model / Serial / Lot Cath Thermodilution 6fr - [id number] Implanted:Qty: 1 on 05/31/2022 by Yoli Rocha MD at [facility] [employer] [id number] 01/30/2024 [id number] / / [id number] Stent Synergy Xd Mr [id number] - [id number] Implanted:Qty: 1 on 07/27/2022 by Yoli Rocha MD at [facility] [employer] 11/08/2023 [id number] / / [id number] documented as of this encounter Results * (ABNORMAL) BASIC METABOLIC PANEL (03/14/2023 3:40 PM EDT) BUN 76(H) 6 - 20 mg/dL 03/14/2023 10:13 PM EDT [facility] Creatinine 1.9(H) 0.5 - 1.0 mg/dL 03/14/2023 10:13 PM EDT LABORATORY C Estimated Glomerular Filtration Rate 27(L) >=60 mL/min 03/14/2023 10:13 PM EDT [facility] Comment:eGFR is calculated b ased on the CKD-EPI 2020 equation Sodium 139 135 - 146 mmol/L 03/14/2023 10:13 PM EDT [facility] Potassium 5.6(H) 3.5 - 5.1 mmol/L 03/14/2023 10:13 PM EDT [facility] Chloride 105 98 - 107 mmol/L 03/14/2023 10:13 PM EDT [facility] CO2 20(L) 22 - 32 mmol/L 03/14/2023 10:13 PM EDT [facility] Anion Gap 14 7 - 15 mmol/L 03/14/2023 10:13 PM EDT [facility] Glucose 97 70 - 120 mg/dL 03/14/2023 10:13 PM EDT [facility] Calcium 9.6 8.4 - 10.2 mg/dL 03/14/2023 10:13 PM EDT LABORATORY GM Blood Venous blood specimen / Unknown Venipuncture / Unknown 03/14/2023 3:40 PM EDT 03/14/2023 3:40 PM EDT Jazzy Moya DO LAB BLOOD ORDERABLES [facility] [address] [facility] [place] [address] documented in this encounter Visit Diagnoses Diagnosis SHEA (acute kidney injury) (HCC)- Primary Acute kidney failure, unspecified Hyperkalemia Hyperpotassemia documented in this encounter Advance Directives Latest Code Status on File Code Status Date Activated Date Inactivated Comments Full Code 07/27/2022 12:56 PM 07/28/2022 1:52 PM This o rder reflects the patients wishes and were consensually agreed upon. Question Answer Comments Discussion of Advance Directives occurred with: Not Discussed due to patient's condition Care Teams Retail Sales Manager Relationship Specialty Start Date End Date Jazzy Moya, [address] [place] [address] PCP - General Internal Medicine 03/12/17 documented as of this encounter
--- OUTSIDE RECORDS SUMMARY | 2023-10-07 14:36 | External Medical Summary ---
Author Name Unknown Address Unknown Organization [id number]:[facility]ATORY [facility] - [facility] [address] [facility] [address] Laboratory Report Ordering Provider Test Date Status STANLEY MALDONADO 04/13/2023 10:05:15 Final Observation Date Value Abnormality Reference (Units ) Status BUN 04/13/2023 10:05:15 76 Above high normal 6-20 (mg/dL) Final Creatinine 04/13/2023 10:05:15 1.7 Above high normal 0.5-1.0 (mg/dL) Final Glomerular filtration rate/1.73 sq M.predicted [Volume Rate/Area] in Serum, Plasma or Blood by Creatinine-based formula (CKD-EPI) 04/13/2023 10:05:15 30 Below low normal >=60 (mL/min) Final eGFR is calculated based on the CKD-EPI 2020 equation SODIUM 04/13/2023 10:05:15 137 135-146 (m mol/L) Final Potassium 04/13/2023 10:05:15 5.6 Above high normal 3. 5-5.1 (mmol/L) Final Cl 04/13/2023 10:05:15 104 98-107 (mm ol/L) Final CO2 04/13/2023 10:05:15 22 22-32 (mmo l/L) Final Anion gap 04/13/2023 10:05:15 11 7-15 (mmol /L) Final Glucose 04/13/2023 10:05:15 101 70-120 (mg /dL) Final Calcium 04/13/2023 10:05:15 9.4 8.4-10.2 ( mg/dL) Final Performing Location LABORATORY [facility] - [address] [place] [address]
--- OUTSIDE RECORDS SUMMARY | 2023-10-07 14:36 | External Medical Summary | Summary of Care ---
Author Name Unknown Organization [facility] Address [address] [facility] [place] [address] Phone [phone] Care Team Providers Care Mail Processing Machine Operator Name Role Phone Jazzy [place] Primary Care Provider [phone] Reason for Visit * Reason Comments Outpatient Testing Encounter Details Date Type Department Care Team Description 04/13/2023 Laboratory Laboratory [address] [place] [address] [place] [address] SHEA (acute kidney injury) ([facility]); Hyperkalemia Allergies Active Allergy Reactions Severity Noted Date Comments Ramipril Unknown Low 01/08/2014 Gabapentin Edema Other Medium 03/30/2011 Attempted x 3 with resultant fatigue and peripheral edema Oxycodone 06/09/2019 Makes me go crazy documented as of this encounter (statuses as of 04/13/2023) Medications Medication Sig Dispensed Refills Start Date [...] as of this encounter (statuses as of 04/13/2023) Active Problems Problem Noted Date S/P primary [...] iogram 10/01/2013 Coronary artery disease invo lving [place] coronary artery of [place] heart without angina pectoris 05/20/2013 Hyperlipidemia with target LDL less than 70 09/02/2012 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 GENERAL OSTEOARTHROSIS Hiatal hernia documented as of this encounter (statuses as of 04/13/2023) Resolved Problems Problem Noted Date Resolved Date Hypertensive kidney disease with chronic kidney disease stage III 11/04/2018 06/03/2020 Overview: Per CKD protocol Carpal tunnel syndrome of left wrist 11/11/2015 09/18/2017 Tubular adenoma of colon 04/14/2015 019 Benign esophageal stricture 03/15/201508/24 MEDICATION USE AGREEMENT 08/21/2014 018 Overview: Signed 08/21/2014 Nazanin Mayfield MD [facility] as backup Anemia 10/01/2013 04/08/2015 COPD, [...] as of this encounter (statuses as of 04/13/2023) Immunizations Name Administration Dates Next Due COVID-19 [...] Olu Gonzáles, [address] [place] [address] 05/17/2023 Procedure Only Endoscopy Bonita Stock, [address] [place] [address] 05/25/2023 Office Visit Gastroenterology Kaitlin Zhang CRNP [address] [place] [address] 09/14/2023 Office Visit Family Medicine Jazzy [place], [address] [place] [address] Pending Results Name Type Priority Associated Diagnoses Date /Time BASIC METABOLIC PANEL Lab Routine SHEA (acute kidney injury) (HCC) Hyperkalemia 04/13/2023 10:05 AM EDT Health Maintenance Due Date Last Done Comments [...] Additional history exists CKD PHOS USE SMARTSET 74751 11/23/2023 05/0 09/2022, 11/18/2021, 11/02/2020, Additional history exists Albumin/Creatinine Ratio 03/06/2024 023, 05/23/2022, 08/15/2021, Additional history exists CKD HGB USE SMARTSET 25516 03/06/202403/06, 03/06/2023, 11/22/2022, Additional history exists O2 [...] this encounter Medical Devices Implanted Type Area Business Systems Advisor Device Identifier Shelf Expiration Date Model / Serial / Lot Cath Thermodilution 6fr - [id number] Implanted:Qty: 1 on 05/31/2022 by Yoli Rocha MD [place] [facility] [employer] [id number] 01/30/2024 [id number] / / [id number] Stent Synergy Xd Mr 4.71b58um - [id number] Implanted:Qty: 1 on 07/27/2022 by Yoli Rocha MD at [facility] [employer] 11/08/2023 [id number] / / [id number] documented as of this encounter Visit Diagnoses Diagnosis SHEA (acute [...] Discussed due to patient's condition Care Teams Mail Processing Machine Operator Relationship Specialty Start Date End Date Jazzy [place], [address] [place] [address] PCP - General Internal Medicine 03/12/17 documented as of this encounter
[2023-10-07 15:46] LABS: Basophils # (auto) 0.03 K/uL (0.00-0.20); Basophils % (auto) 0.6 %; Eosinophils # (auto) 0.21 K/uL (0.00-0.50); Eosinophils % (auto) 4.2 %; Hematocrit (blood only) 33.5 % (37.0-47.0); Hemoglobin 11.1 g/dl (12.0-16.0); Immature Granulocytes # (auto) 0.01 K/uL (0.01-0.20); Immature Granulocytes % (auto) 0.2 %; Lymphocytes # (auto) 0.59 K/uL (1.20-3.40); Lymphocytes % (auto) 11.7 %; Mean Corpuscular Hemoglobin 29.2 pg (25.0-34.0); Mean Corpuscular Hgb Conc 33.1 g/dL (32.0-36.0); Mean Corpuscular Volume 88.2 fL (80.0-100.0); Mean Platelet Volume 10.3 fL (9.4-12.4); Monocytes # (auto) 0.36 K/uL (0.11-0.59); Monocytes % (auto) 7.1 %; Neutrophils # (auto) 3.85 K/uL (1.40-6.50); Neutrophils % (auto) 76.2 %; Platelet Count 212 K/uL (130-400); RDW Standard Deviation 41.4 fL (36.4-46.3); White Blood Count 5.05 K/ul (4.8-10.8)
[2023-10-07] MEDS: SODIUM CHLORIDE 0.9% 500 ML IV SCH (15:53)
--- NOTE | 2023-10-07 16:00 | Emergency Department Note ---
Impression & Plan Weakness, SHEA (acute kidney injury), Chest tightness, Acute hyponatremia, Acute UTI ED Provider Note NAME: ANTON JAVED AGE: 78 SEX: F : 1945 ARRIVES VIA: Ambulance INFORMANT: [Patient] ED PROVIDER(S): [Bernabe Xavier MD] CHIEF COMPLAINT: Chest pain HISTORY OF PRESENT ILLNESS: The patient is an 78-year-old female who has had about a week of symptoms. She had a decreased appetite, some leg and back pain, headache, some abdominal pain and some chest tightness as well as chest pain. She had a bout of diarrhea that was nonbloody. Patient feels that she is not taking in enough to eat or drink. She feels weak. Patient saw her doctor's office on the eighth, 9 days ago. The patient was told to start Imdur but to stop her Aldactone/spironolactone. She did stop the medication as instructed but only took Imdur for a few days as she thinks it made her feel worse. Patient states that she was given oxygen on the way to the hospital, this seemed to help her chest discomfort. The chest discomfort is now gone. PMHx/PSHx/Social Hx: See Below PHYSICAL EXAM: GENERAL: Patient is in no acute distress. HEENT: No acute trauma, normocephalic atraumatic, mucous membranes moist, no nasal congestion. NECK: No stridor, no adenopathy, no meningismus, trachea is midline. LUNGS: Few scattered crackles heard, no wheezing, no respiratory distress. HEART: 3/6 to 4/6 systolic murmur, regular rate and rhythm. ABDOMEN: Soft, nontender, no peritonitis. EXTREMITIES: No cyanosis, full range of motion of all the joints without pain or difficulty. Mild bilateral pedal edema. NEUROLOGIC: Oriented x 3, no acute motor or sensory deficits, no focal weakness. SKIN: No jaundice, no diaphoresis. DIFFERENTIAL DIAGNOSIS: CHF, pneumonia, bronchitis, renal or liver failure, electrolyte imbalance, anemia, UTI, viral illness, among others. EMERGENCY DEPARTMENT PROCEDURES: MEDICAL DECISION MAKING: There is no leukocytosis. A very mild anemia was seen. There was a normal platelet count. No coagulopathy. Sodium was quite low at 123. There was findings suggesting acute kidney injury with a creatinine of 2.01. No concerning liver enzyme elevation. Total CK was not elevated making rhabdomyolysis unlikely. The patient appeared to be in a euthyroid state. Cardiac troponin was somewhat elevated, this elevation could be consistent with cardiac injury or potentially just mismatch. Of note, the patient does have a history of a mildly elevated troponin looking back at her previous testing. Her troponin will need trending. Urinalysis does show findings of infection with 4+ bacteria. Respiratory bio fire was completely negative. Chest x-ray shows cardiomegaly, no CHF. On exam, the patient was not toxic or febrile. Patient received IV saline, 500 cc. She was given IV Tylenol and IV ceftriaxone. Given the findings of hyponatremia, acute kidney injury and UTI, I do think the patient requires a hospital stay. The findings noted today certainly could explain her presentation. I spoke with the patient and case management, the on-call hospitalist was consulted. Prior/Outside records/notes reviewed: Today's EMS notes describing her presentation and transport to this hospital. ECG per my interpretation: Indication was chest pain. The ECG shows a sinus bradycardia with a rate of 53. There is an incomplete left bundle branch block. There are peaked T waves noted. No acute ST elevation, no PVCs. LVH is present. The QTc is 424. Continuous Cardiac Monitoring per my interpretation: An order was placed for continuous cardiac monitoring. The monitor shows a rate of 55 with sinus bradycardia. Imaging/x-ray results per my interpretation: Chest x-ray does not show CHF or pneumonia. Cardiomegaly was seen. Chronic Medical/Social conditions affecting care: Advanced age. Care/Management discussed with: Case management, the on-call hospitalist. Level of care consideration(s): After review of the information above and other included data: --I believe the patient requires escalation of care to admission DISPOSITION: Admission Past Med/Surg History Medical History Myalgia Generalized weakness Acute exacerbation of congestive heart failure COVID Hypertensive crisis Chronic sialoadenitis Poor historian Chronic back pain Osteoarthritis History of esophageal dilatation GERD (gastroesophageal reflux disease) Leaky heart valve per pt aorta--follows with Dr. Gonzáles Hypertension Hyperlipidemia Cardiac murmur CKD (chronic kidney disease) stage 3, GFR 30-59 ml/min Esophageal motility disorder "noted on barium swallow 10/2014" Chawla's esophagus Aortic stenosis "moderately severe by echo September 2013" Coronary artery disease "nonocclusive disease by cath [facility] September 2013" Surgical History History of colonoscopy History of umbilical hernia repair History of cardiac cath x3--last 12/2018 no stents History of hysterectomy History of lumpectomy cant remember which breast---benign fatty tissue History of bilateral tubal ligation History of carpal tunnel release of both wrists History of lumbar spinal fusion History of total left knee replacement (TKR) History of appendectomy History of cholecystectomy History of esophagogastroduodenoscopy (EGD) History of tooth extraction History of tonsillectomy History of sinus surgery Family History Other No family history of adverse response to anesthesia No family history of bleeding disorder Social History Smoking Status: Former smoker Tobacco Type: Cigarettes Second Hand Exposure: No; Do You Dip or Chew Tobacco: No; Hx Alcohol Use: No Hx Substance Use: No Preferred Language: Singaporean Communication Ability: Effective 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 Sons help daily. Feels Safe at Home: Yes Assistive Devices: Glasses and Walker Allergies Allergies Allergy/AdvReac Type Severity Reaction Status Date / Time gabapentin AdvReac Intermediate cough Verified 10/07/23 17:13 oxycodone AdvReac Intermediate "makes me Verified 10/07/23 17:13 go crazy" ramipril AdvReac Intermediate cough Verified 10/07/23 17:13 Home Meds Home Medications Medication Instructions Recorded Confirmed cranberry concentrate-ascorbic 4 cap PO DAILY 07/01/19 10/07/23 acid 140 mg-100 mg capsule (Cranberry Plus Vitamin C) docusate sodium 100 mg tablet 100 - 200 mg PO QPM 07/01/19 10/07/23 (Stool Softener) hydrocodone 10 mg-acetaminophen 1 tab PO BID PRN pain,severe 07/01/19 10/07/23 325 mg tablet losartan 50 mg tablet 50 mg PO QAM 07/01/19 10/07/23 nitroglycerin 0.4 mg sublingual 0.4 mg sublingual UD PRN Angina 07/01/19 10/07/23 tablet omeprazole 20 mg capsule,delayed 20 mg PO QAM 07/01/19 10/07/23 release aspirin 81 mg chewable tablet 81 mg PO DAILY 09/01/20 10/07/23 torsemide 10 mg tablet 10 mg PO UD 03/23/22 10/07/23 acetaminophen 650 mg 650 mg PO Q8H PRN Pain 06/15/22 10/07/23 tablet,extended release cholecalciferol (vitamin D3) 25 25 mcg PO QAM 06/15/22 10/07/23 mcg (1,000 unit) capsule (Vitamin D3) hydralazine 50 mg tablet 50 mg PO TID 06/15/22 10/07/23 pyridoxine (vitamin B6) 50 mg 50 mg PO DAILY 06/15/22 10/07/23 tablet (Vitamin B-6) turmeric root extract 500 mg tablet 500 mg PO DAILY 06/15/22 10/07/23 vitamin E 670 mg (1,000 unit) 670 mg PO DAILY 06/15/22 10/07/23 capsule ascorbic acid (vitamin C) 1,000 mg 0.5 g PO QAM 07/30/22 10/07/23 tablet (Vitamin C) amlodipine 5 mg tablet 5 mg PO QAM 10/07/23 10/07/23 atorvastatin 20 mg tablet 20 mg PO QAM 10/07/23 10/07/23 cyanocobalamin (vitamin B-12) 1,000 mcg PO QAM 10/07/23 10/07/23 1,000 mcg tablet (Vitamin B-12) pediatric multivitamin 1 tab PO 2XWK 10/07/23 10/07/23 no.203-ferrous sulfate 18 mg chewable tablet (Flintstones with Iron) torsemide 10 mg tablet 20 mg PO MOWEFR 10/07/23 10/07/23 Previous Rx's Medication Instructions Recorded carvedilol 6.25 mg tablet 6.25 mg PO BID #60 tabs 10/04/20 Results & Data (ED) Vital Signs Vital Signs - 24 hr 10/07/23 14:58 10/07/23 14:58 10/07/23 16:58 Temperature 36.6 C Temperature Source Oral Pulse Rate 55 L 53 L Pulse Rate [Finger] Pulse Rhythm [Finger] Pulse Strength [Finger] Respiratory Rate 20 Respiratory Effort / Characteristics Non-Labored Spontaneous Non-Labored Spontaneous Respiratory Depth Normal Normal Respiratory Pattern Regular Blood Pressure [Left Arm] Blood Pressure Mean [Left Arm] Pulse Oximetry 98 Oxygen Delivery Method Room Air Sepsis Recent Fever Within 48 Hours No Sepsis New/Unexplained Change in Mental Status No Sepsis Action Taken by Nursing No Action Required 10/07/23 17:33 Temperature Temperature Source Pulse Rate Pulse Rate [Finger] 57 L Pulse Rhythm [Finger] Regular Pulse Strength [Finger] Normal Respiratory Rate 16 Respiratory Effort / Characteristics Non-Labored Spontaneous Respiratory Depth Normal Respiratory Pattern Blood Pressure [Left Arm] 161/67 H Blood Pressure Mean [Left Arm] 98 Pulse Oximetry 97 Oxygen Delivery Method Room Air Sepsis Recent Fever Within 48 Hours Sepsis New/Unexplained Change in Mental Status Sepsis Action Taken by [facility] Medications Current Medication List: was personally reviewed by me Laboratory Data Attestation: I reviewed the patient's lab results. 10/07/23 15:13 10/07/23 15:13 Lab Results 10/07/23 10/07/23 10/07/23 Range/Units 15:13 15:58 16:40 WBC 5.05 (4.8-10.8) K/ul RBC 3.80 L (4.20-5.40) M/uL Hgb 11.1 L (12.0-16.0) g/dl Hct 33.5 L (37.0-47.0) % MCV 88.2 (80.0-100.0) fL MCH 29.2 (25.0-34.0) pg MCHC 33.1 (32.0-36.0) g/dL RDW Std Deviation 41.4 (36.4-46.3) fL RDW Coeff of Breanne 13.0 (11.5-14.5) % Plt Count 212 (130-400) K/uL MPV 10.3 (9.4-12.4) fL Immature Gran % (Auto) 0.2 % Neut % (Auto) 76.2 % Lymph % (Auto) 11.7 % [place] % (Auto) 7.1 % Eos % (Auto) 4.2 % Baso % (Auto) 0.6 % Neut # (Auto) 3.85 (1.40-6.50) K/uL Lymph # (Auto) 0.59 L (1.20-3.40) K/uL [place] # (Auto) 0.36 (0.11-0.59) K/uL Eos # (Auto) 0.21 (0.00-0.50) K/uL Baso # (Auto) 0.03 (0.00-0.20) K/uL Immature Gran # (Auto) 0.01 (0.01-0.20) K/uL PT 11.5 (9.0-12.0) Seconds INR 1.1 (0.9-1.1) APTT 29 (21-31) Seconds PTT Ratio 1.0 Sodium 123 L (136-145) mmol/L Potassium 4.9 (3.5-5.1) mmol/L Chloride 90 L (98-107) mmol/L Carbon Dioxide 24 (21-32) mmol/L Anion Gap 9 (3-11) BUN 68 H (6-23) mg/dl Creatinine 2.01 H (0.6-1.2) mg/dl Est Cr Clr Drug Dosing 18.5 ml/min Est GFR ( Amer) 26.5 ml/min Est GFR (Non-Af Amer) 22.9 ml/min BUN/Creatinine Ratio 33.8 H (10-20) Glucose 141 H (70-99(Fasting)) mg/dl Calcium 9.4 (8.6-10.3) mg/dl Magnesium 1.8 (1.7-2.4) mg/dl Total Bilirubin 0.6 (0.2-1.0) mg/dl AST 27 (13-39) U/L ALT 14 (7-52) U/L Alkaline Phosphatase 73 (34-104) U/L Total Creatine Kinase 51 (26-192) U/L Troponin I High Sens 61.1 H* (0-14) pg/ml Total Protein 7.5 (6.0-8.3) gm/dl Albumin 4.2 (3.4-5.0) gm/dl Globulin 3.3 (2.5-4.0) gm/dl Albumin/Globulin Ratio 1.3 (0.9-2) TSH 1.689 (0.300-4.500) uIu/ml Urine Color Yellow Urine Appearance Clear (Clear) Urine pH 5.0 (4.5-7.5) Ur Specific Mathews 1.012 (1.000-1.030) Urine Protein 2+ H (Negative) Urine Glucose (UA) Negative (Negative) Urine Ketones Negative (Negative) Urine Blood Negative (Negative) Urine Nitrite Negative (Negative) Urine Bilirubin Negative (Negative) Urine Urobilinogen Negative (Negative) Ur Leukocyte Esterase Negative (Negative) Urine WBC (Auto) 5-10 H (0-5) /hpf Urine RBC (Auto) 0-4 (0-4) /hpf U Hyaline Cast (Auto) 1-5 (0-5) /lpf U Epithel Cells (Auto) 5-10 H (0-5) /lpf Urine Bacteria (Auto) 4+ H (Negative) Adenovirus (PCR) Not Detected (NotDetected) B. pertussis DNA (PCR) Not Detected (NotDetected) B.parapertussis DNA PCR Not Detected (NotDetected) C. pneumoniae DNA (PCR) Not Detected (NotDetected) Coronavirus OC43 (PCR) Not Detected (NotDetected) Coronavirus HKU1 (PCR) Not Detected (NotDetected) Coronavirus 229E (PCR) Not Detected (NotDetected) SARS-CoV-2 (PCR) Not Detected (NotDetected) Coronavirus NL63 (PCR) Not Detected (NotDetected) Human Metapneumovir PCR Not Detected (NotDetected) Influenza Type A (PCR) Not Detected (NotDetected) Influenza Type B (PCR) Not Detected (NotDetected) M. pneumoniae (PCR) Not Detected (NotDetected) Parainfluenza 1 (PCR) Not Detected (NotDetected) Parainfluenza 2 (PCR) Not Detected (NotDetected) Parainfluenza 3 (PCR) Not Detected (NotDetected) Parainfluenza 4 (PCR) Not Detected (NotDetected) RSV (PCR) Not Detected (NotDetected) Entero/Rhino (PCR) Not Detected (NotDetected) Administered Medications Discontinued Medications Sodium Chloride (Nss) 500 mls @ 999 mls/hr IV .Q31M MELLISA Stop: 10/07/23 16:00 Last Infusion: 10/07/23 16:29 Dose: Infused Documented By: Admin: 10/07/23 15:53 Dose: 999 mls/hr Documented By: MARSHALL Acetaminophen (Ofirmev) 1,000 mg in 100 mls @ 400 mls/hr IV NOW STA Stop: 10/07/23 17:28 Last Admin: 10/07/23 17:55 Dose: 400 mls/hr Documented By: JOSE MARTIN Imaging Data Radiologist's Impression: Chest X-Ray 10/07/23 15:25 XR chest 1V portable HISTORY: weakness COMPARISON: Chest 03/23/2022. FINDINGS: No pneumothorax. No pleural effusions. The heart remains enlarged. There is a large hiatus hernia. Mitral anus calcifications are present. No focal lung consolidations to suggest a pneumonia. Mild interstitial thickening which is likely chronic. No evidence for pulmonary edema. Calcifications within the aortic knob. No acute fractures. IMPRESSION: 1. Stable cardiomegaly. 2. Large hiatus hernia again noted. ACT 112: Negative or not required by law. Electronically signed by: Fernando Vargas M.D. 10/07/2023 4:15 PM Discharge Plan Visit Data Chief Complaint: Chest Pain Stated Complaint: CHEST PAIN, ILLNESS ED Provider: Bernabe Xavier Discharge Problem: Weakness, SHEA (acute kidney injury), Chest tightness, Acute hyponatremia, Acute UTI Patient Disposition: Admitted As Inpatient Condition: Fair Forms Stand Alone Forms: [facility] Prescriptions Prescriptions: No Action aspirin 81 mg tablet,chewable 81 mg PO DAILY losartan 50 mg Tablet 50 mg PO QAM Cranberry Plus Vitamin C 140-100 mg Capsule 4 cap PO DAILY hydrocodone-acetaminophen 10-325 mg Tablet 1 tab PO BID PRN (Reason: pain,severe) nitroglycerin 0.4 mg Tablet, Sublingual 0.4 mg sublingual UD PRN (Reason: Angina) omeprazole 20 mg Capsule,Delayed Release(Dr/Ec) 20 mg PO QAM docusate sodium [Stool Softener] 100 mg Tablet 100 - 200 mg PO QPM carvedilol 6.25 mg Tablet 6.25 mg PO BID Qty: 60 2RF ascorbic acid (vitamin C) [Vitamin C] 1,000 mg Tablet 0.5 g PO QAM Rx Instructions: 1/2 tablet dose torsemide 10 mg tablet 10 mg PO UD Rx Instructions: Sun, Ivet, Thhilda, Sat vitamin E 670 mg (1,000 unit) Capsule 670 mg PO DAILY acetaminophen 650 mg Tablet Extended Release 650 mg PO Q8H PRN (Reason: Pain) pyridoxine (vitamin B6) [Vitamin B-6] 50 mg Tablet 50 mg PO DAILY hydralazine 50 mg tablet 50 mg PO TID cholecalciferol (vitamin D3) [Vitamin D3] 25 mcg (1,000 unit) Capsule 25 mcg PO QAM turmeric root extract 500 mg Tablet 500 mg PO DAILY atorvastatin 20 mg tablet 20 mg PO QAM cyanocobalamin (vitamin B-12) [Vitamin B-12] 1,000 mcg Tablet 1,000 mcg PO QAM amlodipine 5 mg tablet 5 mg PO QAM torsemide 10 mg tablet 20 mg PO MOWEFR Flintstones with Iron 18 mg iron Tablet,Chewable 1 tab PO 2XWK Rx Instructions: SUNDAY & WEDNESDAYS Referrals Referrals: Jazzy Appiah DO [Primary Care Provider] -
[2023-10-07 16:06] LABS: Albumin Globulin Ratio 1.3 (0.9-2); Albumin Level 4.2 gm/dl (3.4-5.0); BUN Creatinine Ratio 33.8 (10-20); Bilirubin,Total 0.6 mg/dl (0.2-1.0); Calcium 9.4 mg/dl (8.6-10.3); Creatinine Clr Calc Pharmacy 18.5 ml/min; Est GFR (African American) 26.5 ml/min; Est GFR (Non-African American) 22.9 ml/min; Globulin 3.3 gm/dl (2.5-4.0); Magnesium 1.8 mg/dl (1.7-2.4); Potassium 4.9 mmol/L (3.5-5.1); Total Protein 7.5 gm/dl (6.0-8.3)
[2023-10-07 16:11] LABS: INR 1.1 (0.9-1.1); Partial Thromboplastin Time 29 Seconds (21-31); Prothrombin Time 11.5 Seconds (9.0-12.0)
[2023-10-07 16:16] LABS: Troponin I High Sensitivity 61.1 pg/ml (0-14)
--- NOTE | 2023-10-07 16:17 | XRay Report ---
XR chest 1V portable HISTORY: weakness COMPARISON: Chest 03/23/2022. FINDINGS: No pneumothorax. No pleural effusions. The heart remains enlarged. There is a large hiatus hernia. Mitral anus calcifications are present. No focal lung consolidations to suggest a pneumonia. Mild interstitial thickening which is likely chronic. No evidence for pulmonary edema. Calcifications within the aortic knob. No acute fractures. IMPRESSION: 1. Stable cardiomegaly. 2. Large hiatus hernia again noted. ACT 112: Negative or not required by law. Electronically signed by: Fernando Vargas M.D. 10/07/2023 4:15 PM
[2023-10-07 16:22] LABS: Thyroid Stimulating Hormone 1.689 uIu/ml (0.300-4.500)
--- NOTE | 2023-10-07 16:51 | History & Physical Report ---
Date of Service October 07, 2023 Assessment & Plan (1) Hyponatremia: Plan: Patient is 78 year old female with PMH HTN, dyslipidemia, CAD s/p stent L main artery, moderate-severe aortic stenosis, chronic HFpEF, chronic anemia, hiatal hernia, esophageal strictures, GERD, chronic back pain, and others listed below presented to ER with c/o chest pain, SOB, myalgias, generalized weakness, anorexia. In ER afebrile, BP: 90/60, P: 55, R: 20, O2: 98% on RA. Repeat BP: 161/67. Na: 123, was 135 on 09/21/23 In ER given 500ml NSS Will repeat BMP Q4H to reassess and determine further management Nephrology consult (2) Chest pain: (3) Elevated troponin: (4) Coronary artery disease: (5) Dyspnea: Plan: History CAD s/p LU LMCA in 07/2022 History of cardiac cath 07/27/2022: Ostial to proximal LMCA 70% stenosis s/p PCI, LU History cardiac cath 05/31/2022: 60% ostial left main stenosis, mild mid LAD disease, 30% mid left circumflex stenosis, mild-moderate diffuse RCA disease (dominant with rPDA and rPL) Ongoing intermittent CP, SOB can occur with rest or exertion. Sometimes relieved with rest or SL nitro This morning episode relieved with oxygen via EMS No recurrent CP or SOB reported during ER course R/O ACS. Has known and h/o CAD. Initial troponin: 61 Monitor Vitals Repeat EKG in am Will trend troponin 09/25/2023 echo: EF: 55-59% without wall motion abnormalities. Left atrium severely enlarged. Aortic valve severely calcified with Doppler assessment consistent with moderate aortic stenosis however on 2D visualization severe aortic stenosis is suggested. mild aortic regurgitation, mitral valve severely calcified with mild MS and mild MR, moderate tricuspid regurgitation, severe pulmonary hypertension Continue aspirin, statin and carvedilol Cardiology consult (6) Abnormal urinalysis: Plan: UA: 5-10 WBC, 5-10 epithelial, 4+bacteria. No leukocytosis. Denies urinary symptoms Urine culture pending In ER given Rocephin Will continue Rocephin for now pending culture (7) CKD (chronic kidney disease) stage 3, GFR 30-59 ml/min: Plan: CKD III-IV BUN: 68. Cr: 2.0. Cr was 2.0 on 09/21/2023, 1.9 in 09/20/2023 and 1.7-1.9 in fall of 2022 In ER given 500ml NSS Monitor renal functions, avoid nephrotoxic agents when possible (8) Chronic heart failure with preserved ejection fraction (HFpEF): (9) Aortic stenosis: Plan: History mod-severe Currently appears on dry side Outpatient trials of diuretics recently for reported symptoms of overload with torsemide dose adjusting and spironolactone. Spironolactone was discontinued. Will currently hold torsemide Monitor I's and O's, daily weight Will need careful fluid balance and monitoring Outpatient cardiology note suggested patient may require further workup with possible LANEY, cardiac cath, referral to valve clinic Cardiology consult (10) Hypertension: Plan: BP 90/60 in ER. Repeat BP 161/67 Hold torsemide as above Continue carvedilol, amlodipine, hydralazine, losartan with holding parameters (11) Hyperlipidemia: Plan: Continue atorvastatin (12) Chronic back pain: Plan: On chronic hydrocodone Will try dose of IV Tylenol now Scheduled Tylenol, lidocaine patch Continue home hydrocodone as needed as BP's allow (13) Hiatal hernia: (14) GERD (gastroesophageal reflux disease): Plan: History esophageal strictures, esophageal dysmotility disorder Continue PPI DVT Prophylaxis Heparin SQ Full Code as per discussion with patient and patient's son Follows with Dr Appiah for routine care Pt was seen and care coordinated with Dr Gunderson. See addendum I spent a total of 77 minutes reviewing notes, outpatient records, labs, medication, coordinating, documenting and providing care for this patient excluding time spent in the performance of separately billed services. History of Present Illness Chief Complaint: Chest pain Primary Care Provider: Jazzy Appiah DO Patient is 78 year old female with PMH HTN, dyslipidemia, CAD s/p stent L main artery, moderate-severe aortic stenosis, chronic HFpEF, chronic anemia, hiatal hernia, esophageal strictures, GERD, chronic back pain, and others listed below presented to ER with c/o chest pain and other multiple medical complaints. History obtained from patient, patient's son, outpatient chart review. Patient reports has been having ongoing intermittent chest tightness and SOB. Sometimes resolves with rest after rest in about 10 minutes and sometimes she will use SL nitro with resolution. Has been following with outpatient cardiology. Seen in cardiology office 09/14/2023 for intermittent chest pain that can occur with sitting or exertion and some shortness of breath and palpitations with reported weight gain. She was instructed to use torsemide 20 mg Sunday and Fridays and 10 mg all other days and spironolactone was also added. Follow up visit with cardiology on 09/28/2023 with reported weight loss and decreased LE edema and spironolactone was discontinued as patient was concerned with underlying CKD. She was started on Imdur 30 mg daily for ongoing intermittent chest discomfort. Was discussion about possible further consideration of LANEY, cardiac cath and possible referral to valve clinic. Patient states felt sick with nausea and feeling "off" after taking Imdur so stopped taking it after a couple of days. She is unsure if her symptoms have improved since stopping it. She feels her BLE had improved but feels worse again. Reports legs feel cold chronically but hasn't noticed skin discoloration. Patient also states has been really restricting her salt intake and with history esophageal strictures feels not much she can eat and admits to decreased appetite and poor oral intake. Patient also reports chronic back pain. She also feels having bilateral arm aching, nausea, poor appetite increased past couple of weeks. Takes hydrocodone BID without much pain relief. Reports ongoing issues with difficulty swallowing but denies overt food bolus. Patient states they have been hesitant to do any further esophageal dilations. States had some rhinorrhea today. Last night sore throat but non currently. Denies cough or fevers. Reports always cold, denies diaphoresis. Also c/o ongoing abdominal pain across upper abdomen and sides, denies any recent worsening of abdominal pain. Taking Miralax and stool softeners. Yesterday several BMs. Today episode of loose stool. Patient presented to ER today as felt her symptoms not improving and felt needed further evaluation. States on way in to ER today had episode of chest tightness and SOB and EMS started oxygen and symptoms resolved. Denies any recurrent CP or SOB while being in ER. She reports has been having intermittent BAUMAN's also. Feels generalized weakness past several weeks. Denies falls. Denies vomiting, melena, syncope, vision changes, neck pain, palpitations, choking, rashes, urinary symptoms. Allergies Allergy/AdvReac Type Severity Reaction Status Date / Time gabapentin AdvReac Intermediate cough Verified 10/07/23 17:13 oxycodone AdvReac Intermediate "makes me Verified 10/07/23 17:13 go crazy" ramipril AdvReac Intermediate cough Verified 10/07/23 17:13 Home Medications Medication Instructions Recorded Confirmed Type cranberry concentrate-ascorbic 4 cap PO DAILY 07/01/19 10/07/23 History acid 140 mg-100 mg capsule (Cranberry Plus Vitamin C) docusate sodium 100 mg tablet 100 - 200 mg PO QPM 07/01/19 10/07/23 History (Stool Softener) hydrocodone 10 mg-acetaminophen 1 tab PO BID PRN pain,severe 07/01/19 10/07/23 History 325 mg tablet losartan 50 mg tablet 50 mg PO QAM 07/01/19 10/07/23 History nitroglycerin 0.4 mg sublingual 0.4 mg sublingual UD PRN Angina 07/01/19 10/07/23 History tablet omeprazole 20 mg capsule,delayed 20 mg PO QAM 07/01/19 10/07/23 History release aspirin 81 mg chewable tablet 81 mg PO DAILY 09/01/20 10/07/23 History carvedilol 6.25 mg tablet 6.25 mg PO BID #60 tabs 10/04/20 10/07/23 Rx torsemide 10 mg tablet 10 mg PO UD 03/23/22 10/07/23 History acetaminophen 650 mg 650 mg PO Q8H PRN Pain 06/15/22 10/07/23 History tablet,extended release cholecalciferol (vitamin D3) 25 25 mcg PO QAM 06/15/22 10/07/23 History mcg (1,000 unit) capsule (Vitamin D3) hydralazine 50 mg tablet 50 mg PO TID 06/15/22 10/07/23 History pyridoxine (vitamin B6) 50 mg 50 mg PO DAILY 06/15/22 10/07/23 History tablet (Vitamin B-6) turmeric root extract 500 mg tablet 500 mg PO DAILY 06/15/22 10/07/23 History vitamin E 670 mg (1,000 unit) 670 mg PO DAILY 06/15/22 10/07/23 History capsule ascorbic acid (vitamin C) 1,000 mg 0.5 g PO QAM 07/30/22 10/07/23 History tablet (Vitamin C) amlodipine 5 mg tablet 5 mg PO QAM 10/07/23 10/07/23 History atorvastatin 20 mg tablet 20 mg PO QAM 10/07/23 10/07/23 History cyanocobalamin (vitamin B-12) 1,000 mcg PO QAM 10/07/23 10/07/23 History 1,000 mcg tablet (Vitamin B-12) pediatric multivitamin 1 tab PO 2XWK 10/07/23 10/07/23 History no.203-ferrous sulfate 18 mg chewable tablet (Flintstones with Iron) torsemide 10 mg tablet 20 mg PO MOWEFR 10/07/23 10/07/23 History Past Med/Surg History Medical History (Updated 10/07/23 @ 18:31 by Estefania Dawson PA-C) Chronic heart failure with preserved ejection fraction (HFpEF) Myalgia Generalized weakness Acute exacerbation of congestive heart failure COVID Hypertensive crisis Chronic sialoadenitis Poor historian Chronic back pain Osteoarthritis History of esophageal dilatation GERD (gastroesophageal reflux disease) Leaky heart valve per pt aorta--follows with Dr. Gonzáles Hypertension Hyperlipidemia Cardiac murmur CKD (chronic kidney disease) stage 3, GFR 30-59 ml/min Esophageal motility disorder "noted on barium swallow 10/2014" Chawla's esophagus Aortic stenosis "moderately severe by echo September 2013" Coronary artery disease "nonocclusive disease by cath [facility] [place] September 2013" Surgical History History of colonoscopy History of umbilical hernia repair History of cardiac cath x3--last 12/2018 no stents History of hysterectomy History of lumpectomy cant remember which breast---benign fatty tissue History of bilateral tubal ligation History of carpal tunnel release of both wrists History of lumbar spinal fusion History of total left knee replacement (TKR) History of appendectomy History of cholecystectomy History of esophagogastroduodenoscopy (EGD) History of tooth extraction History of tonsillectomy History of sinus surgery Family History Other No family history of adverse response to anesthesia No family history of bleeding disorder Social History Smoking Status: Former smoker Tobacco Type: Cigarettes Second Hand Exposure: No; Do You Dip or Chew Tobacco: No; Hx Alcohol Use: No Hx Substance Use: No Preferred Language: Serbian Communication Ability: Effective Hospice Community Liaison Required: No Beliefs That Will Affect Care: Sikh Sikh Beliefs: 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 Sons help daily. Feels Safe at Home: Yes Assistive Devices: Glasses and Walker Review of Systems Review of Systems: All systems reviewed & are unremarkable except as noted in HPI & below Physical Exam Physical Exam: PE per Dr Gunderson Results & Data Results & Data Vital Signs (Past 12 Hours) Vital Signs Temp Pulse Resp Pulse Ox O2 Del Method 10/07/23 14:58 36.6 C 55 L 20 98 Room Air Laboratory Results Short CBC 10/07/23 Range/Units 15:13 WBC 5.05 (4.8-10.8) K/ul Hgb 11.1 L (12.0-16.0) g/dl Hct 33.5 L (37.0-47.0) % Plt Count 212 (130-400) K/uL BMP 10/07/23 15:13 Sodium 123 L Potassium 4.9 Chloride 90 L Carbon Dioxide 24 BUN 68 H Creatinine 2.01 H Glucose 141 H Calcium 9.4 Cardiac Enzymes 10/07/23 Range/Units 15:13 Total Creatine Kinase 51 (26-192) U/L Liver Function 10/07/23 Range/Units 15:13 Total Bilirubin 0.6 (0.2-1.0) mg/dl AST 27 (13-39) U/L ALT 14 (7-52) U/L Alkaline Phosphatase 73 (34-104) U/L Albumin 4.2 (3.4-5.0) gm/dl Urine 10/07/23 Range/Units 16:40 Urine Color Yellow Urine Appearance Clear (Clear) Urine pH 5.0 (4.5-7.5) Ur Specific [place] 1.012 (1.000-1.030) Urine Protein 2+ H (Negative) Urine Glucose (UA) Negative (Negative) Diagnostic Findings Chest X-Ray 10/07/23 15:25 XR chest 1V portable HISTORY: weakness COMPARISON: Chest 03/23/2022. FINDINGS: No pneumothorax. No pleural effusions. The heart remains enlarged. There is a large hiatus hernia. Mitral anus calcifications are present. No focal lung consolidations to suggest a pneumonia. Mild interstitial thickening which is likely chronic. No evidence for pulmonary edema. Calcifications within the aortic knob. No acute fractures. IMPRESSION: 1. Stable cardiomegaly. 2. Large hiatus hernia again noted. ACT 112: Negative or not required by law. Electronically signed by: Fernando Vargas M.D. 10/07/2023 4:15 PM ECG Additional Comments: sinus bradycardia, rate 53, possible LVH Supervising Physician Co-Signing Physician Notes Ms. Pugh is an 78 year old female with pmhx (per chart) including but not limited to CAD s/p stent LMA, mod-severe , HFpEF, HTN, HLP, esophageal strictures s/p dilatation, GERD, CKD III, chronic anemia, and chronic back pain. She presented with multiple complaints. She reports one week of worsening weakness in the setting of what sounds like long standing FTT. En route she developed CP and sob that resolved with O2. Here she was found to have hyponatremia. Renal function was noted to be at baseline with mildly elevated troponin which is also chronic. At the time of our visit patient was most concerned with back pain. Due to CKD she is unable to use NSAIDs so options are somewhat limited. She takes hydroc odone BID with a Tylenol in between with inadequate relief. She has not tried anything topically so we discussed trial of a lidocaine patch. Back pain is chronic. There is nothing acute today in this regard. She does not have any acute focal neurologic deficits. She also reports intermittent sob and CP/tightness that are chronic and attributed to aortic stenosis. Per the patient and her family at bedside valve replacement was considered about 5 years ago, but has not been done as of yet d/t concerns regarding ability to tolerate the procedure. In any case, symptoms generally come on with activity and resolve with rest. At times she needs to take nitroglycerin. The symptoms she experienced en route here were typical for her. They were resolved by the of my exam. Pt and her son also describe progressive weakness in the setting of chronic poor appetite and limited ability to tolerate po d/t esophageal strictures. Ms. Pugh states she needs to have her esophagus dilated again, but has been unable to do so d/t risks of the procedure/anesthesia in the setting of her various chronic comorbid conditions. She has also been having nausea lately, it is difficult to tell if this is new or chronic. She attributed at least some of it to starting Imdur. She took just a few doses and felt she couldn't tolerate it, however it doesn't sound as though she felt much better after stopping it. She further reports ongoing abdominal pain, but it sounds as though its chronic. She had several bowel movements yesterday, and loose stool today. However she takes stool softeners and laxatives at baseline. She did have a bit of a sore throat last night and runny nose today but denies dizziness, lightheadedness, fever, and cough. No other complaints. ED course: VS notable for HR 50s, SBP 160s. Remaining VSS. b/w notable for hgb/hct 11.1/33.5, Na 123, Cl 90, BUN 68, Cr 2.01, eGFR 30, Trop 61 -> 71.5 UA 4+ bacteria, 5-10 epithelial cells CXR read as hiatal hernia unchanged, no acute pathology noted. # hyponatremia/hypochloremia: per son and pt she has severely restricted salt intake recently slightly dry on exam, no congestion on cxr given a small amount of NS in the ED, repeat BMP pending fluid status is complicated d/t HFpEF, , CKD IIIb may need additional IVF vs salt tabs vs less restricted diet # CKD IIIb: At presentation Cr 2.01, eGFR 30, at her recent baseline monitor renal function closely with daily bmp, daily weight avoid nephrotoxins, hypotension, relative hypotension # anemia: h/h increased from prior, possibly d/t some mild dehydration and hemoconcentration in the setting of poor po intake continue to monitor consider transfusion for hgb < 8 in pt with CAD, will have to monitor fluid status very closely # elevated troponin: mild elevation, not far from prior values in the setting of poor renal clearance possibly with a component of strain d/t underlying comorbidities cardiology consulted, appreciate input trend troponin to peak echo per cardiology # Abnormal UA: + epithelial cells suggests possible skin contaminant, however with 4+ bacteria with malaise and weakness there is high suspicion for true infection continue abx, f/u culture result # FTT/weakness/poor appetite: multifactorial, largely chronic but possibly in part d/t UTI (see above) pt does not see much utility in trying an appetite stimulant given her difficulty with po intake PT consult less restrictive diet to encourage intake 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 Discussed at length with pt, son, and granddaughter at bedside pt has conflicting needs for volume for preload in s/o as well as maintaining renal perfusion, however with CHF the heart can not necessarily handle the volume General: NAD, chronically ill and frail appearing Eyes: anicteric sclera, no conjunctival injection Nose: nares patent Mouth: slightly dry Neck: supple, trachea midline CV: RRR, + III/ murmur Pulm: CTA b/l Abd/GI: + BS, soft, NT, ND, no guarding : no selby Ext: b/l LE edema Neuro: no focal deficits Psych: anxious Rest per attested note above.
[2023-10-07 17:04] LABS: Adenovirus PCR Not Detected (NotDetected); Bordetella parapertussis PCR Not Detected (NotDetected); Bordetella pertussis PCR Not Detected (NotDetected); Chlamydia pneumoniae PCR Not Detected (NotDetected); Coronavirus 229E PCR Not Detected (NotDetected); Coronavirus CoV-2 (COVID19)PCR Not Detected (NotDetected); Coronavirus HKU1 PCR Not Detected (NotDetected); Coronavirus NL63 PCR Not Detected (NotDetected); Coronavirus OC43PCR Not Detected (NotDetected); Human Metapneumovirus PCR Not Detected (NotDetected); Influenza A PCR Not Detected (NotDetected); Influenza B PCR Not Detected (NotDetected); Mycoplasma pneumoniae PCR Not Detected (NotDetected); Parainfluenza Virus 1 PCR Not Detected (NotDetected); Parainfluenza Virus 2 PCR Not Detected (NotDetected); Parainfluenza Virus 3 PCR Not Detected (NotDetected); Parainfluenza Virus 4 PCR Not Detected (NotDetected); Respiratory Syncytial VirusPCR Not Detected (NotDetected); Rhinovirus/Enterovirus PCR Not Detected (NotDetected)
[2023-10-07 17:05] LABS: Appearance Urine Clear (Clear); Bacteria Urine Automated 4+ (Negative); Bilirubin Urine Negative (Negative); Blood Urine Negative (Negative); Color Urine Yellow; Glucose Urine UA Negative (Negative); Ketones Urine Negative (Negative); Leukocyte Esterase Urine Negative (Negative); Nitrite Urine Negative (Negative); Protein Urine 2+ (Negative); RBC Urine Automated 0-4 /hpf (0-4); Specific Gravity Urine 1.012 (1.000-1.030); Urobilinogen Urine Negative (Negative)
[2023-10-07] MEDS: ACETAMINOPHEN 1,000 MG/100 ML VIAL IV STA (17:55)
[2023-10-07] MEDS: cefTRIAXone SODIUM 2,000 MG/50 ML BAG IV STA (18:02)
[2023-10-07] MEDS: oxyCODONE HCL IR 5 MG TAB (IMMEDIATE RELEASE) PO STA (20:10)
[2023-10-07 20:35] LABS: BUN Creatinine Ratio 36.5 (10-20); Calcium 9.2 mg/dl (8.6-10.3); Creatinine Clr Calc Pharmacy 20.9 ml/min; Est GFR (African American) 30.7 ml/min; Est GFR (Non-African American) 26.5 ml/min; Potassium 5.1 mmol/L (3.5-5.1)
[2023-10-07] MEDS ORDERED: POLYETHYLENE (MIRALAX) 17 GM PACK PO PRN (21:27)
[2023-10-07] MEDS: carvediloL 6.25 MG TAB PO SCH (22:11)
[2023-10-07] MEDS: LIDOCAINE 5% 1 PATCH TD STA (22:42)
[2023-10-07] MEDS: hydrALAZINE TAB 50 MG TAB PO SCH (22:42)
[2023-10-07] MEDS: HEPARIN SOD 5,000 UNIT/0.5 ML VIAL SQ SCH (22:43)
[2023-10-07 23:47] LABS: Troponin I High Sensitivity 76.9 pg/ml (0-14)
[2023-10-08] MEDS: ACETAMINOPHEN 325 MG TAB PO SCH (00:40)
[2023-10-08 01:01] LABS: BUN Creatinine Ratio 35.1 (10-20); Calcium 8.9 mg/dl (8.6-10.3); Creatinine Clr Calc Pharmacy 20.1 ml/min; Est GFR (African American) 29.3 ml/min; Est GFR (Non-African American) 25.3 ml/min; Potassium 4.7 mmol/L (3.5-5.1)
[2023-10-08] MEDS: NITROGLYCERIN 2% OINTMENT 30GM TUBE EXT SCH (01:51)
[2023-10-08 04:13] LABS: Hematocrit (blood only) 27.3 % (37.0-47.0); Hemoglobin 9.4 g/dl (12.0-16.0); Mean Corpuscular Hemoglobin 29.6 pg (25.0-34.0); Mean Corpuscular Hgb Conc 34.4 g/dL (32.0-36.0); Mean Corpuscular Volume 85.8 fL (80.0-100.0); Mean Platelet Volume 10.7 fL (9.4-12.4); Platelet Count 195 K/uL (130-400); RDW Standard Deviation 40.7 fL (36.4-46.3); Red Blood Count 3.18 M/uL (4.20-5.40); White Blood Count 5.67 K/ul (4.8-10.8)
[2023-10-08] MEDS: HYDROcodone/ACETAMINOPHEN 10/325 TAB PO PRN (04:17)
[2023-10-08 04:33] LABS: BUN Creatinine Ratio 34.8 (10-20); Calcium 8.9 mg/dl (8.6-10.3); Chol HDL Ratio 2.2 (0-5); Creatinine Clr Calc Pharmacy 19.8 ml/min; Est GFR (African American) 28.9 ml/min; Est GFR (Non-African American) 24.9 ml/min; Magnesium 1.8 mg/dl (1.7-2.4); Phosphorus 3.5 mg/dl (2.5-4.9); Potassium 4.6 mmol/L (3.5-5.1)
--- NOTE | 2023-10-08 08:42 | Cardiology Consultation ---
Date of Consultation October 08, 2023 Assessment & Plan (1) Coronary artery disease: (2) Chest pain: (3) Elevated troponin: (4) Chronic heart failure with preserved ejection fraction (HFpEF): (5) Aortic stenosis: (6) Mitral stenosis: (7) CKD (chronic kidney disease) stage 3, GFR 30-59 ml/min: Plan IMPRESSION: Medically complex 78-year-old female with known history of coronary artery disease, chronic diastolic CHF secondary to valvular heart disease with aortic and mitral stenosis. Presents due to symptoms of chest pain and shortness of breath. Elevation in high-sensitivity troponin 61>>71.5>>76.9>>110.1 EKG showed SB 53 bpm--no acute ST segment changes. Coronary artery disease: Status post PCI to the left main, 07/27/2022. Ongoing symptoms of chest discomfort with shortness of breath and nausea 1. Continue ASA 81 mg daily Chronic diastolic CHF: Valvular heart disease with aortic and mitral stenosis -There is concern that the aortic stenosis is now classified as severe which could be the cause of some of her symptoms of chest pain shortness of breath. Imaging has been discoordinate and the past. She is scheduled to see a valve clinic in November 2023. -Hesitant to recommend repeat LANEY given esophageal strictures and difficulty swallowing. Last LANEY was performed at [facility] -Overall patient appears euvolemic/hypovolemic on exam. Renal function appears improved with holding of diuretics and 500 cc NS bolus. Appreciate nephrology recommendations. CKD stage 3b/4 + Hyponatremia: -Na was 123 now 128- Per nephrology "Etiology likely true hypovolemic Hyponatremia sec to Diarrhea and Diuretics". Hypertension: -Continue antihypertensive regimen with carvedilol, losartan, and amlodipine as ordered Case discussed with Dr. Morales. I spent a total of 40 minutes on the date of service in preparation, delivery, and documentation of the care provided to the patient excluding any time spent in the performance of separately billed services. DENIA Pino Department of Cardiology, [facility] This chart was completed in part utilizing Speech Voice Recognition Software. Grammatical errors, random word insertions, pronoun errors, and incomplete sentences are an occasional consequence of this system due to software limitations, ambient noise, and hardware issues. Any formal questions or concerns about the content, text, or information contained within the body of this dictation should be directly addressed to the provider for clarification. Supervising Physician Co-Signing Physician Notes I have reviewed the advance practitioner's documentation, and I agree with, and take responsibility for the plan of care. 78-year-old female present to the emergency department with multiple symptoms including decreased appetite, leg pain, back pain, headache, abdominal discomfort, diarrhea, exertional chest tightness and chest pain. Admits to poor p.o. intake and feeling weak. Chest pain-free at rest. Recent echocardiogram in the outpatient setting with concerns regarding discordant aortic valve data and possible severe aortic valve stenosis. PE. Hypertensive. General: NAD, chronically ill, awake alert and orient x 3. Heart: Regular rhythm, 3/6 late peaking systolic ejection murmur heard best at the right second costal space. Lungs: Clear bilateral, no rales, rhonchi, wheeze. Extremities: Trace to mild bilateral edema. + Tenderness to palpation. No erythema. A/P: 78-year-old female with complex cardiovascular history as detailed above present to the emergency room with multiple symptoms and concerns. Presentation consistent with dehydration in the setting of poor p.o. intake and resultant hypovolemic hyponatremia. Serum sodium improving with IV hydration and increased oral intake of fluids. Agree with holding diuretic therapy at this time. Repeat lab studies in AM. Appreciate nephrology input. In regard to her anginal symptoms. Discussed potential referral to [facility] in [place] for right and left cardiac catheterization with coronary angiography when renal function and electrolytes have stabilized. Patient hesitant to proceed with any invasive procedures at this time. Prefers to discuss further with her son. Will continue to follow closely during hospitalization. Thank you for allow me to participate in the care of your patient. History of Present Illness Reason for Consultation: Chest pain and shortness of breath Requesting Physician: [facility] Attending Physician: Erika Contreras MD History of Present Illness Medically complex 78-year-old female who presented to [facility] emergency department yesterday due to chest tightness and shortness of breath with exertion, symptom improvement with sublingual nitroglycerin and rest. Has also been having intermittent episodes of headaches and nausea with diarrhea. Patient carries a history of aortic stenosis. Assessment of aortic stenosis has been discoordinate on serial imaging however cardiac catheterization dated 04/2022 did reveal moderate aortic stenosis. Recent echo obtained on 09/25/2023 showed a preserved LVEF of 55-59% without wall motion abnormalities. Aortic valve appeared severely calcified with Doppler assessment consistent with moderate aortic stenosis however 2D was relation was more suggestive of severe. She also had mild aortic regurgitation. In addition to her aortic disease the mitral valve appeared severely calcified with mild MS and mild MR. Pulmonary pressures were elevated and there was question of worsening stenosis/regurgitation. Patient carries a history of esophageal strictures and has had dilations in the past. But a LANEY was able to be performed in [place] in April of 2022. Was originally seen in our outpatient cardiology clinic on 09/14/2023. At this time she was having chest discomfort and shortness of breath. Patient was encouraged to increase torsemide but declined and was started on spironolactone instead. At her last outpatient appointment with the undersigned on 09/28/2023 she continued to feel poorly. She was becoming nauseated with her chest discomfort. Noted improvement in her breathing and weight with the addition of spironolactone, notes that she was down about 11 pounds. Has been having difficulty swallowing--has known esophageal strictures and previously underwent dilations, has been hesitant to repeat recently. She was referred back to the valve clinic however in the interim she was started on Imdur 30 mg daily. However she self discontinued this medication on 10/01/2023 as she felt it was causing a sore throat, headache, and nausea/diarrhea. In the emergency department high-sensitivity troponin was elevated at 61>>71.5>>76.9>>110.1 EKG showed SB 53 bpm Urinalysis was suggestive for UTI. Was started on Rocephin. Renal function showed a creatinine of 2.0, blood pressures were hypotensive--patient given a 500 cc normal saline bolus. Torsemide was held. Upon entrance to the room patient resting in bed. Family at bedside. Currently chest pain-free. No shortness of breath. Continues to get nauseated with the pills. Also having diarrhea. Denies any palpitations. No lightheadedness or dizziness. No orthopnea or PND. No increased lower extremity edema however legs are very tender to touch. No fever, chills, cough, hematochezia, melena, or hemoptysis. Has a poor appetite. Has not eaten or drank much this admission. Serum creatinine mildly improved (2.0>>1.79). Primary Clinical Laboratory Director: Dr. Gonzáles Past medical history: 1.Coronary artery disease, status post PCI to the LM, 07/27/2022 2.Severe aortic stenosis, discordant date on echo a.Moderate per cath, 04/2022 3.Mitral regurgitation and stenosis 4.Chronic diastolic CHF 5.Hypertension 6.Hyperlipidemia 7.Carotid artery stenosis, 50-69% bilaterally, follows with vascular 8.Peripheral vascular disease Allergies Allergy/AdvReac Type Severity Reaction Status Date / Time gabapentin AdvReac Intermediate cough Verified 10/07/23 17:13 oxycodone AdvReac Intermediate "makes me Verified 10/07/23 17:13 go crazy" ramipril AdvReac Intermediate cough Verified 10/07/23 17:13 Home Medications Medication Instructions Recorded Confirmed Type cranberry concentrate-ascorbic 4 cap PO DAILY 07/01/19 10/07/23 History acid 140 mg-100 mg capsule (Cranberry Plus Vitamin C) docusate sodium 100 mg tablet 100 - 200 mg PO QPM 07/01/19 10/07/23 History (Stool Softener) hydrocodone 10 mg-acetaminophen 1 tab PO BID PRN pain,severe 07/01/19 10/07/23 History 325 mg tablet losartan 50 mg tablet 50 mg PO QAM 07/01/19 10/07/23 History nitroglycerin 0.4 mg sublingual 0.4 mg sublingual UD PRN Angina 07/01/19 10/07/23 History tablet omeprazole 20 mg capsule,delayed 20 mg PO QAM 07/01/19 10/07/23 History release aspirin 81 mg chewable tablet 81 mg PO DAILY 09/01/20 10/07/23 History carvedilol 6.25 mg tablet 6.25 mg PO BID #60 tabs 10/04/20 10/07/23 Rx torsemide 10 mg tablet 10 mg PO UD 03/23/22 10/07/23 History acetaminophen 650 mg 650 mg PO Q8H PRN Pain 06/15/22 10/07/23 History tablet,extended release cholecalciferol (vitamin D3) 25 25 mcg PO QAM 06/15/22 10/07/23 History mcg (1,000 unit) capsule (Vitamin D3) hydralazine 50 mg tablet 50 mg PO TID 06/15/22 10/07/23 History pyridoxine (vitamin B6) 50 mg 50 mg PO DAILY 06/15/22 10/07/23 History tablet (Vitamin B-6) turmeric root extract 500 mg tablet 500 mg PO DAILY 06/15/22 10/07/23 History vitamin E 670 mg (1,000 unit) 670 mg PO DAILY 06/15/22 10/07/23 History capsule ascorbic acid (vitamin C) 1,000 mg 0.5 g PO QAM 07/30/22 10/07/23 History tablet (Vitamin C) amlodipine 5 mg tablet 5 mg PO QAM 10/07/23 10/07/23 History atorvastatin 20 mg tablet 20 mg PO QAM 10/07/23 10/07/23 History cyanocobalamin (vitamin B-12) 1,000 mcg PO QAM 10/07/23 10/07/23 History 1,000 mcg tablet (Vitamin B-12) pediatric multivitamin 1 tab PO 2XWK 10/07/23 10/07/23 History no.203-ferrous sulfate 18 mg chewable tablet (Flintstones with Iron) torsemide 10 mg tablet 20 mg PO MOWEFR 10/07/23 10/07/23 History Patient History Medical History Chronic heart failure with preserved ejection fraction (HFpEF) Myalgia Generalized weakness Acute exacerbation of congestive heart failure COVID Hypertensive crisis Chronic sialoadenitis Poor historian Chronic back pain Osteoarthritis History of esophageal dilatation GERD (gastroesophageal reflux disease) Leaky heart valve per pt aorta--follows with Dr. Gonzáles Hypertension Hyperlipidemia Cardiac murmur CKD (chronic kidney disease) stage 3, GFR 30-59 ml/min Esophageal motility disorder "noted on barium swallow 10/2014" Chawla's esophagus Aortic stenosis "moderately severe by echo September 2013" Coronary artery disease LM PCI 07/27/2022 Surgical History History of colonoscopy History of umbilical hernia repair History of cardiac cath x3--last 12/2018 no stents History of hysterectomy History of lumpectomy cant remember which breast---benign fatty tissue History of bilateral tubal ligation History of carpal tunnel release of both wrists History of lumbar spinal fusion History of total left knee replacement (TKR) History of appendectomy History of cholecystectomy History of esophagogastroduodenoscopy (EGD) History of tooth extraction History of tonsillectomy History of sinus surgery Family History Other No family history of adverse response to anesthesia No family history of bleeding disorder Social History Smoking Status: Former smoker Tobacco Type: Cigarettes Second Hand Exposure: No; Do You Dip or Chew Tobacco: No; Hx Alcohol Use: No Hx Substance Use: No Preferred Language: Albanian Communication Ability: Effective Customer Servicer Required: No Beliefs That Will Affect Care: None marital status: / Current Living Situation: Alone Current Living Situation Comment: From home. Sons help daily. Other Information That Helps Us Care for You: No Feels Safe at Home: Yes Safety Concerns: Feels Safe At This Time Assistive Devices: Cane, Glasses, Walker and Wheelchair Review of Systems Review of Systems: All systems reviewed & are unremarkable except as noted in HPI & below Physical Exam Constitutional: no acute distress Respiratory: normal respiratory effort, lungs clear to auscultation Cardiovascular: Rate/Rhythm: regular rate and regular rhythm Heart Sounds: normal S1 and + murmur (+3/6 systolic murmur, harsh ); + abnormal S2 (diminished S2) Vessels: no JVD Extremities: no edema Gastrointestinal (Abdomen): normal bowel sounds, soft, nontender, no hepatosplenomegaly Results & Data Vital Signs (Past 12 Hours) Vital Signs Temp Pulse Pulse Resp BP Pulse Ox O2 Del Method 10/08/23 07:52 Room Air 10/08/23 07:07 47 L 10/08/23 07:00 36.8 C 44 L 12 157/54 H 93 Room Air 10/08/23 03:00 36.8 C 51 L 18 144/48 H 96 Room Air 10/08/23 00:28 48 L 151/53 H 94 Room Air 10/08/23 00:13 57 L 10/07/23 23:42 36.6 C 59 L 16 186/54 H 97 Room Air 10/07/23 22:00 60 18 93 Room Air 10/07/23 22:00 60 20 149/59 H 98 Room Air 10/07/23 21:04 62 Laboratory Results Cardiac Enzymes 10/07/23 10/07/23 10/07/23 Range/Units 15:13 17:48 19:52 AST 27 (13-39) U/L Troponin I High Sens 61.1 H* 71.5 H* D 76.9 H* (0-14) pg/ml 10/08/23 Range/Units 03:30 AST (13-39) U/L Troponin I High Sens 110.1 H* D (0-14) pg/ml Coagulation 10/07/23 Range/Units 15:13 PT 11.5 (9.0-12.0) Seconds APTT 29 (21-31) Seconds Lipids 10/08/23 Range/Units 03:30 Triglycerides 86 (0-150) mg/dl Cholesterol 104 (0-200) mg/dl HDL Cholesterol 47 mg/dl Cholesterol/HDL Ratio 2.2 (0-5) CBC 10/07/23 10/08/23 Range/Units 15:13 03:30 WBC 5.05 5.67 (4.8-10.8) K/ul RBC 3.80 L 3.18 L (4.20-5.40) M/uL Hgb 11.1 L 9.4 L (12.0-16.0) g/dl Hct 33.5 L 27.3 L (37.0-47.0) % Plt Count 212 195 (130-400) K/uL Neut # (Auto) 3.85 (1.40-6.50) K/uL Lymph # (Auto) 0.59 L (1.20-3.40) K/uL [place] # (Auto) 0.36 (0.11-0.59) K/uL Eos # (Auto) 0.21 (0.00-0.50) K/uL Baso # (Auto) 0.03 (0.00-0.20) K/uL Comprehensive Metabolic Panel 10/07/23 10/07/23 10/08/23 Range/Units 15:13 19:52 00:15 Sodium 123 L 124 L 126 L (136-145) mmol/L Potassium 4.9 5.1 4.7 (3.5-5.1) mmol/L Chloride 90 L 93 L 95 L (98-107) mmol/L Carbon Dioxide 24 21 25 (21-32) mmol/L BUN 68 H 65 H 65 H (6-23) mg/dl Creatinine 2.01 H 1.78 H 1.85 H (0.6-1.2) mg/dl Glucose 141 H 118 H 147 H (70-99(Fasting)) mg/dl Calcium 9.4 9.2 8.9 (8.6-10.3) mg/dl AST 27 (13-39) U/L ALT 14 (7-52) U/L Alkaline Phosphatase 73 (34-104) U/L Total Protein 7.5 (6.0-8.3) gm/dl Albumin 4.2 (3.4-5.0) gm/dl 10/08/23 10/08/23 Range/Units 03:30 08:09 Sodium 126 L 128 L (136-145) mmol/L Potassium 4.6 4.7 (3.5-5.1) mmol/L Chloride 96 L 97 L (98-107) mmol/L Carbon Dioxide 22 24 (21-32) mmol/L BUN 65 H 61 H (6-23) mg/dl Creatinine 1.87 H 1.79 H (0.6-1.2) mg/dl Glucose 82 84 (70-99(Fasting)) mg/dl Calcium 8.9 9.1 (8.6-10.3) mg/dl AST (13-39) U/L ALT (7-52) U/L Alkaline Phosphatase (34-104) U/L Total Protein (6.0-8.3) gm/dl Albumin (3.4-5.0) gm/dl Intake and Output 10/07/23 10/08/23 10/08/23 22:59 06:59 14:59 Intake Total 650 / 750 100 / 750 50 / 50 Output Total 250 / 250 Balance 650 / 500 -150 / 500 50 / 50 Intake: IV 650 / 650 50 / 50 Acetaminophen 1,000 mg In 100 100 / 100 ml @ 400 mls/hr IV NOW STA Rx#: [id number] Sodium Chloride 0.9% 500 ml @ 500 / 500 999 mls/hr IV .Q[facility]M [facility] Rx#: [id number] cefTRIAXone SODIUM 2,000 mg In 50 / 50 Dextrose 5 % Mini-B 50 ml @ 100 mls/hr IV Q24H [facility] Rx#: [id number] cefTRIAXone SODIUM 2,000 mg In 50 / 50 50 ml @ 100 mls/hr IV NOW STA Rx#:[id number] Oral 100 / 100 Output: Urine 250 / 250 Other: # Unmeasured Voids 1 Weight 61.3 kg 61.4 kg Weight Measurement Method Built in Bedscale Standing Scale (1) Coronary artery disease Associated angina: with unspecified form of angina Coronary Disease- Associated Artery/Lesion type: [place] artery [place] vs. transplanted heart: [place] heart Qualified Code(s): I25.119 - Atherosclerotic heart disease of [place] coronary artery with unspecified angina pectoris (2) Chest pain Chest pain type: unspecified Qualified Code(s): R07.9 - Chest pain, unspecified (5) Aortic stenosis Cardiac valve disease etiology: nonrheumatic Qualified Code(s): I35.0 - Nonrheumatic aortic (valve) stenosis (6) Mitral stenosis Cardiac valve disease etiology: nonrheumatic Qualified Code(s): I34.2 - Nonrheumatic mitral (valve) stenosis (7) CKD (chronic kidney disease) stage 3, GFR 30-59 ml/min Chronic kidney disease stage 3 subtype: unspecified whether 3a or 3b Qualified Code(s): N18.30 - Chronic kidney disease, stage 3 unspecified
--- NOTE | 2023-10-08 08:47 | Electrocardiogram Report ---
Test Reason : Blood Pressure : / mmHG Vent. Rate : 053 BPM Atrial Rate : 053 BPM P-R Int : 194 ms QRS Dur : 124 ms QT Int : 452 ms P-R-T Axes : 026 -31 074 degrees QTc Int : 424 ms Sinus bradycardia Left axis deviation Non-specific intra-ventricular conduction delay Minimal voltage criteria for LVH, may be normal variant Abnormal ECG When compared with ECG of 29-JUL-2022 23:01, No significant change was found Confirmed by Philipp Shannon ([id number]) on 10/08/2023 8:47:18 AM Referred By: REFERRED SELF Confirmed By:Wander Shannon
[2023-10-08] MEDS: cefTRIAXone SODIUM 2,000 MG in DEXTROSE 5 % MINI-B 50 ML IV SCH (08:58)
[2023-10-08 08:59] LABS: BUN Creatinine Ratio 34.1 (10-20); Calcium 9.1 mg/dl (8.6-10.3); Creatinine Clr Calc Pharmacy 20.7 ml/min; Est GFR (African American) 30.5 ml/min; Est GFR (Non-African American) 26.3 ml/min; Potassium 4.7 mmol/L (3.5-5.1)
[2023-10-08] MEDS: PANTOprazole 40 MG TAB PO SCH (08:59)
[2023-10-08] MEDS: LOSARTAN POTASSIUM 50 MG TAB PO SCH (08:59)
[2023-10-08] MEDS: CYANOCOBALAMIN (B-12) 500 MCG TABLET PO SCH (08:59)
[2023-10-08] MEDS: PYRIDOXINE HCL 50 MG TAB PO SCH (08:59)
[2023-10-08] MEDS: amLODIPine BESYLATE 5 MG TAB PO SCH (08:59)
[2023-10-08] MEDS: ATORVASTATIN 20 MG TAB PO SCH (08:59)
[2023-10-08] MEDS: ASPIRIN 81 MG CHEW PO SCH (09:00)
[2023-10-08] MEDS: CHOLECALCIFEROL 25 MCG (1000 UNITS) TAB PO SCH (09:01)
--- NOTE | 2023-10-08 09:04 | Electrocardiogram Report ---
Test Reason : Blood Pressure : / mmHG Vent. Rate : 048 BPM Atrial Rate : 468 BPM P-R Int : 000 ms QRS Dur : 126 ms QT Int : 470 ms P-R-T Axes : 000 -30 084 degrees QTc Int : 419 ms Sinus rhythm with 1st degree AV block Left axis deviation Non-specific intra-ventricular conduction block Abnormal ECG Confirmed by Philipp Shannon ([id number] on 10/08/2023 9:04:08 AM Referred By: REFERRED SELF Confirmed By:Wander Shannon
--- NOTE | 2023-10-08 10:28 | Hospitalist Progress Note ---
Date of Service October 08, 2023 Assessment & Plan (1) Chest pain: (2) Elevated troponin: (3) Coronary artery disease: (4) Dyspnea: (5) Aortic stenosis: (6) Hypertension: (7) Chronic heart failure with preserved ejection fraction (HFpEF): Plan: 78 year old female with PMH HTN, dyslipidemia, CAD s/p stent L main artery, moderate-severe aortic stenosis, chronic HFpEF, chronic anemia, hiatal hernia, esophageal strictures, GERD, chronic back pain, and others listed below presented to ER with c/o chest pain, SOB, myalgias, generalized weakness, anorexia. In ER afebrile, BP: 90/60, P: 55, R: 20, O2: 98% on RA. Repeat BP: 161/67. Na: 123, was 135 on 09/21/23 History mod-severe History CAD s/p LU LMCA in 07/2022 History of cardiac cath 07/27/2022: Ostial to proximal LMCA 70% stenosis s/p PCI, UL History cardiac cath 05/31/2022: 60% ostial left main stenosis, mild mid LAD disease, 30% mid left circumflex stenosis, mild-moderate diffuse RCA disease (dominant with rPDA and rPL) Troponin was 61.1 trended up to 110. I reviewed the EKG and admission similar to the one from July 2022. Chest x-ray noted stable cardiomegaly and large hiatal hernia Recent echo from 09/25/2023 (Per card office note) EF: 55-59% without wall motion abnormalities. Left atrium severely enlarged. Aortic valve severely calcified with Doppler assessment consistent with moderate aortic stenosis however on 2D visualization severe aortic stenosis is suggested. mild aortic regurgitation, mitral valve severely calcified with mild MS and mild MR, moderate tricuspid regurgitation, severe pulmonary hypertension With the patient's cardiac history status post stents, will appreciate cardiology evaluation and recommendation. Outpatient trials of diuretics recently for reported symptoms of overload with torsemide dose adjusting and spironolactone. Spironolactone was discontinued. Torsemide currently on hold. Will follow-up cardiology/nephrology recommendation about this Continue carvedilol, amlodipine, hydralazine, losartan with holding parameters (8) Hyponatremia: (9) CKD (chronic kidney disease) stage 3, GFR 30-59 ml/min: Plan: Per outpatient records, Cr and GFR trend has been CKD 3b to 4 BUN: 68. Cr: 2.0. Cr was 2.0 on 09/21/2023, 1.9 in 09/20/2023 and 1.7-1.9 in fall of 2022 Got 500ml NSS in ER Sodium of 123 on admission. Serum osmolality this morning is 289. Na is 128 this AM Follow-up urine osmolality and urine sodium. Nephrology consulted (10) Hyperlipidemia: Plan: Continue atorvastatin (11) Chronic back pain: Plan: On chronic hydrocodone Scheduled Tylenol, lidocaine patch Continue home hydrocodone as needed as BP's allow (12) Abnormal urinalysis: Plan: UA: 5-10 WBC, 5-10 epithelial, 4+bacteria. No leukocytosis. Denied urinary symptoms Urine culture growing GNR Asymptomatic bacteruria vs UTI Continue ceftriaxone considering other nonspecific complaints (13) Hiatal hernia: (14) GERD (gastroesophageal reflux disease): Plan: History esophageal strictures, esophageal dysmotility disorder Continue PPI DVT Prophylaxis Heparin SQ Full Code Follows with Dr Appiah for routine care I spent a total of 55 minutes coordinating, documenting and providing care for this patient excluding time spent in performance of separately billed services Admission and Anticipated Discharge Date Admission Date: October 07, 2023 Subjective Patient seen and examined. Reports intermittent chest pain, Shortness of breath. Reports occasional chest tightness/pain and shortness of breath with exertion walking up and down the stairs that relieves occasionally with rest or nitro. She also reports that sometimes she has a pain without activity. Denies any cough, nausea, vomiting, abdominal pain, diarrhea Reports some leg swelling. Physical Exam Constitutional: + well hydrated; no acute distress Elderly woman Eyes: PERRL, conjunctivae normal, anicteric sclerae ENMT: external ear and nose normal, oropharynx normal Respiratory: normal respiratory effort; no respiratory distress Auscultation: lungs clear to auscultation bilaterally Cardiovascular: Rate/Rhythm: regular rhythm and + bradycardic Heart Sounds: + murmur Gastrointestinal (Abdomen): normal bowel sounds, soft, nontender, no hepatosplenomegaly Musculoskeletal: Bilateral pedal edema Neurologic: PERRL, EOMI, accommodation nl, no face palsy, no dysarthria Psychiatric: A+Ox3, euthymic affect Results & Data Results & Data Vital Signs (Past 12 Hours) Vital Signs Temp Pulse Pulse Resp BP Pulse Ox O2 Del Method 10/08/23 09:39 36.9 C 56 L 16 166/57 H 96 Room Air 10/08/23 07:52 Room Air 10/08/23 07:07 47 L 10/08/23 07:00 36.8 C 44 L 12 157/54 H 93 Room Air 10/08/23 03:00 36.8 C 51 L 18 144/48 H 96 Room Air 10/08/23 00:28 48 L 151/53 H 94 Room Air 10/08/23 00:13 57 L 10/07/23 23:42 36.6 C 59 L 16 186/54 H 97 Room Air Laboratory Results Abnormal lab results 10/07/23 10/07/23 10/07/23 Range/Units 15:13 16:40 17:48 RBC 3.80 L (4.20-5.40) M/uL Hgb 11.1 L (12.0-16.0) g/dl Hct 33.5 L (37.0-47.0) % Lymph # (Auto) 0.59 L (1.20-3.40) K/uL Sodium 123 L (136-145) mmol/L Chloride 90 L (98-107) mmol/L BUN 68 H (6-23) mg/dl Creatinine 2.01 H (0.6-1.2) mg/dl BUN/Creatinine Ratio 33.8 H (10-20) Glucose 141 H (70-99(Fasting)) mg/dl Troponin I High Sens 61.1 H* 71.5 H* D (0-14) pg/ml Urine Protein 2+ H (Negative) Urine WBC (Auto) 5-10 H (0-5) /hpf U Epithel Cells (Auto) 5-10 H (0-5) /lpf Urine Bacteria (Auto) 4+ H (Negative) 10/07/23 10/08/23 10/08/23 Range/Units 19:52 00:15 03:30 RBC 3.18 L (4.20-5.40) M/uL Hgb 9.4 L (12.0-16.0) g/dl Hct 27.3 L (37.0-47.0) % Lymph # (Auto) (1.20-3.40) K/uL Sodium 124 L 126 L 126 L (136-145) mmol/L Chloride 93 L 95 L 96 L (98-107) mmol/L BUN 65 H 65 H 65 H (6-23) mg/dl Creatinine 1.78 H 1.85 H 1.87 H (0.6-1.2) mg/dl BUN/Creatinine Ratio 36.5 H 35.1 H 34.8 H (10-20) Glucose 118 H 147 H (70-99(Fasting)) mg/dl Troponin I High Sens 76.9 H* 110.1 H* D (0-14) pg/ml Urine Protein (Negative) Urine WBC (Auto) (0-5) /hpf U Epithel Cells (Auto) (0-5) /lpf Urine Bacteria (Auto) (Negative) 10/08/23 Range/Units 08:09 RBC (4.20-5.40) M/uL Hgb (12.0-16.0) g/dl Hct (37.0-47.0) % Lymph # (Auto) (1.20-3.40) K/uL Sodium 128 L (136-145) mmol/L Chloride 97 L (98-107) mmol/L BUN 61 H (6-23) mg/dl Creatinine 1.79 H (0.6-1.2) mg/dl BUN/Creatinine Ratio 34.1 H (10-20) Glucose (70-99(Fasting)) mg/dl Troponin I High Sens (0-14) pg/ml Urine Protein (Negative) Urine WBC (Auto) (0-5) /hpf U Epithel Cells (Auto) (0-5) /lpf Urine Bacteria (Auto) (Negative) (1) Chest pain Chest pain type: unspecified Qualified Code(s): R07.9 - Chest pain, unspecified (3) Coronary artery disease Coronary Disease-Associated Artery/Lesion type: [place] artery [place] vs. transplanted heart: [place] heart Associated angina: with unspecified form of angina Qualified Code(s): I25.119 - Atherosclerotic heart disease of [place] coronary artery with unspecified angina pectoris (9) CKD (chronic kidney disease) stage 3, GFR 30-59 ml/min Chronic kidney disease stage 3 subtype: unspecified whether 3a or 3b Qualified Code(s): N18.30 - Chronic kidney disease, stage 3 unspecified
--- NOTE | 2023-10-08 11:13 | Nephrology Consultation ---
Date of Consultation October 08, 2023 Assessment & Plan (1) SHEA (acute kidney injury): She has baseline CKD 3B/4 with baseline creat in the 1.6--2.0 range. Came in at 2.0 and now / so some improvement after gentle hdyration and holding Diuretcs. cause of SHEA likely hemodynamic. making urine. Hold diuretics for today but no more iv fluid. Daily labs now (2) Hyponatremia: na was 123 and now is 128 after some NS. etiology likely true hypovolemic Hyponatremia sec to Diarrhea and Diuretics. less Diarrhea today and Diuretics on hold so maybe will be better. now can check na once daily with AM labs FFR 1200 ml per day. was drinking lot more at home. (3) CKD (chronic kidney disease) stage 4, GFR 15-29 ml/min: History of Present Illness Reason for Consultation: Hyponatremia and CKD Attending Physician: Erika Contreras MD History of Present Illness 78/F with CKD 3B/4 baseline creat in the 1.6--2.0 range, Severe Aortic stenosis with CHF, HTN, CAD s/p stent L main artery, chronic HFpEF presented to ER with c/o chest pain, Abd pain, Diarrhea and SOB for last few days. . History obtained from patient, patient's son, outpatient chart review. ongoing intermittent chest tightness and SOB. Seen in cardiology office 09/14/2023 . She was instructed to use torsemide 20 mg Sunday and Fridays and 10 mg all other days and spironolactone was also added. Follow up visit with cardiology on 09/28/2023 with reported weight loss and decreased LE edema and spironolactone was discontinued as patient was concerned with underlying CKD. She was started on Imdur 30 mg daily for ongoing intermittent chest discomfort. Was discussion about possible further consideration of LANEY, cardiac cath and possible referral to valve clinic. Patient states felt sick with nausea after taking Imdur so stopped taking it after a couple of days. She feels her BLE had improved a lot after course of torsemide/Aldactone. Patient has been restricting her salt intake and with history esophageal strictures feels not much she can eat and admits to decreased appetite and poor oral intake. But she is drinking about 70 Oz per day. She also feels having bilateral arm aching, nausea, poor appetite increased past couple of weeks. Urinalysis was suggestive for UTI. Was started on Rocephin. Renal function showed a creatinine of 2.0, blood pressures were hypotensive na was low at 123----patient given a 500 cc normal saline bolus. Torsemide was held na and creat better today 128 and 1.79 in AM labs . ROS--As detailed in HPI. Unless state otherwise 12 Systems negative PHYSICAL EXAM: GENERAL: Patient is in no acute distress. awake and alert. Normal accurate Speech HEENT: No acute trauma, normocephalic atraumatic, mucous membranes moist, no nasal congestion. NECK: No stridor, no adenopathy, no meningismus, trachea is midline. LUNGS: Few scattered crackles heard, no wheezing, no respiratory distress. HEART: 3/6 to 4/6 systolic murmur, regular rate and rhythm. ABDOMEN: Soft, nontender, no peritonitis. EXTREMITIES: Trace bilateral pedal edema. NEUROLOGIC: Oriented x 3, no acute motor or sensory deficits, no focal weakness. SKIN: No jaundice, no diaphoresis. Allergies Allergy/AdvReac Type Severity Reaction Status Date / Time gabapentin AdvReac Intermediate cough Verified 10/07/23 17:13 oxycodone AdvReac Intermediate "makes me Verified 10/07/23 17:13 go crazy" ramipril AdvReac Intermediate cough Verified 10/07/23 17:13 Home Medications Medication Instructions Recorded Confirmed Type cranberry concentrate-ascorbic 4 cap PO DAILY 07/01/19 10/07/23 History acid 140 mg-100 mg capsule (Cranberry Plus Vitamin C) docusate sodium 100 mg tablet 100 - 200 mg PO QPM 07/01/19 10/07/23 History (Stool Softener) hydrocodone 10 mg-acetaminophen 1 tab PO BID PRN pain,severe 07/01/19 10/07/23 History 325 mg tablet losartan 50 mg tablet 50 mg PO QAM 07/01/19 10/07/23 History nitroglycerin 0.4 mg sublingual 0.4 mg sublingual UD PRN Angina 07/01/19 10/07/23 History tablet omeprazole 20 mg capsule,delayed 20 mg PO QAM 07/01/19 10/07/23 History release aspirin 81 mg chewable tablet 81 mg PO DAILY 09/01/20 10/07/23 History carvedilol 6.25 mg tablet 6.25 mg PO BID #60 tabs 10/04/20 10/07/23 Rx torsemide 10 mg tablet 10 mg PO UD 03/23/22 10/07/23 History acetaminophen 650 mg 650 mg PO Q8H PRN Pain 06/15/22 10/07/23 History tablet,extended release cholecalciferol (vitamin D3) 25 25 mcg PO QAM 06/15/22 10/07/23 History mcg (1,000 unit) capsule (Vitamin D3) hydralazine 50 mg tablet 50 mg PO TID 06/15/22 10/07/23 History pyridoxine (vitamin B6) 50 mg 50 mg PO DAILY 06/15/22 10/07/23 History tablet (Vitamin B-6) turmeric root extract 500 mg tablet 500 mg PO DAILY 06/15/22 10/07/23 History vitamin E 670 mg (1,000 unit) 670 mg PO DAILY 06/15/22 10/07/23 History capsule ascorbic acid (vitamin C) 1,000 mg 0.5 g PO QAM 07/30/22 10/07/23 History tablet (Vitamin C) amlodipine 5 mg tablet 5 mg PO QAM 10/07/23 10/07/23 History atorvastatin 20 mg tablet 20 mg PO QAM 10/07/23 10/07/23 History cyanocobalamin (vitamin B-12) 1,000 mcg PO QAM 10/07/23 10/07/23 History 1,000 mcg tablet (Vitamin B-12) pediatric multivitamin 1 tab PO 2XWK 10/07/23 10/07/23 History no.203-ferrous sulfate 18 mg chewable tablet (Flintstones with Iron) torsemide 10 mg tablet 20 mg PO MOWEFR 10/07/23 10/07/23 History Patient History Medical History Chronic heart failure with preserved ejection fraction (HFpEF) Myalgia Generalized weakness Acute exacerbation of congestive heart failure COVID Hypertensive crisis Chronic sialoadenitis Poor historian Chronic back pain Osteoarthritis History of esophageal dilatation GERD (gastroesophageal reflux disease) Leaky heart valve per pt aorta--follows with Dr. Gonzáles Hypertension Hyperlipidemia Cardiac murmur CKD (chronic kidney disease) stage 3, GFR 30-59 ml/min Esophageal motility disorder "noted on barium swallow 10/2014" Chawla's esophagus Aortic stenosis "moderately severe by echo September 2013" Coronary artery disease LM PCI 07/27/2022 Surgical History History of colonoscopy History of umbilical hernia repair History of cardiac cath x3--last 12/2018 no stents History of hysterectomy History of lumpectomy cant remember which breast---benign fatty tissue History of bilateral tubal ligation History of carpal tunnel release of both wrists History of lumbar spinal fusion History of total left knee replacement (TKR) History of appendectomy History of cholecystectomy History of esophagogastroduodenoscopy (EGD) History of tooth extraction History of tonsillectomy History of sinus surgery Family History Other No family history of adverse response to anesthesia No family history of bleeding disorder Social History Smoking Status: Former smoker Tobacco Type: Cigarettes Second Hand Exposure: No; Do You Dip or Chew Tobacco: No; Hx Alcohol Use: No Hx Substance Use: No Preferred Language: Pashto Communication Ability: Effective Household Appliance Repairer Required: No Beliefs That Will Affect Care: None marital status: / Current Living Situation: Alone Current Living Situation Comment: From home. Sons help daily. Other Information That Helps Us Care for You: No Feels Safe at Home: Yes Safety Concerns: Feels Safe At This Time Assistive Devices: Cane, Glasses and Walker Results & Data Vital Signs (Past 12 Hours) Vital Signs Temp Pulse Pulse Resp BP Pulse Ox O2 Del Method 10/08/23 09:39 36.9 C 56 L 16 166/57 H 96 Room Air 10/08/23 07:52 Room Air 10/08/23 07:07 47 L 10/08/23 07:00 36.8 C 44 L 12 157/54 H 93 Room Air 10/08/23 03:00 36.8 C 51 L 18 144/48 H 96 Room Air 10/08/23 00:28 48 L 151/53 H 94 Room Air 10/08/23 00:13 57 L 10/07/23 23:42 36.6 C 59 L 16 186/54 H 97 Room Air Laboratory Results reviewed Diagnostic Findings urine C/s---+ ve for UTI. CXR No Pulm edema
[2023-10-08] MEDS: ONDANSETRON INJ 2 MG/ML 2 ML VIAL IV PRN (15:54)
--- NOTE | 2023-10-08 17:26 | Electrocardiogram Report ---
Test Reason : Blood Pressure : / mmHG Vent. Rate : 053 BPM Atrial Rate : 053 BPM P-R Int : 228 ms QRS Dur : 126 ms QT Int : 448 ms P-R-T Axes : 077 -32 070 degrees QTc Int : 420 ms Sinus bradycardia with 1st degree A-V block Left axis deviation Left ventricular hypertrophy with QRS widening Abnormal ECG When compared with ECG of 08-OCT-2023 05:37, Nonspecific T wave abnormality has replaced inverted T waves in Lateral leads Confirmed by Philipp Shannon ([id number]) on 10/08/2023 5:25:48 PM Referred By: REFERRED SELF Confirmed By:Wander Shannon
[2023-10-08] MEDS ORDERED: LIDOCAINE 5% 1 PATCH TD SCH (20:35)
[2023-10-08] MEDS: LIDOCAINE 5% 1 PATCH TD SCH (20:59)
[2023-10-09 06:27] LABS: Hematocrit (blood only) 26.7 % (37.0-47.0); Mean Corpuscular Hemoglobin 29.3 pg (25.0-34.0); Mean Corpuscular Hgb Conc 33.7 g/dL (32.0-36.0); Mean Platelet Volume 10.5 fL (9.4-12.4); Platelet Count 182 K/uL (130-400); RDW Coefficient of Variation 12.9 % (11.5-14.5); Red Blood Count 3.07 M/uL (4.20-5.40); White Blood Count 4.61 K/ul (4.8-10.8)
[2023-10-09 06:36] LABS: Albumin Level 3.5 gm/dl (3.4-5.0); BUN Creatinine Ratio 31.5 (10-20); Calcium 8.7 mg/dl (8.6-10.3); Creatinine Clr Calc Pharmacy 20.2 ml/min; Est GFR (African American) 29.5 ml/min; Est GFR (Non-African American) 25.4 ml/min; Magnesium 1.8 mg/dl (1.7-2.4); Potassium 4.3 mmol/L (3.5-5.1)
--- NOTE | 2023-10-09 06:51 | CT Scan Report ---
CT head/brain wo con CLINICAL HISTORY: throbing headache Technique: Contiguous axial CT images of the head were acquired from the base of the skull to the jose aftab without intravenous contrast administration. Images were viewed in brain, [facility]. Automated dose lowering techniques and/or adjustment according to patient size were utilized for this exam. Comparison: Comparison is made to CT head 03/22/2022 Findings: The ventricles, basal cisterns, and cerebral sulci are normal. There is no acute intracranial hemorrh age or evidence of acute territorial infarction. Neither mass effect, shift of the midline structures , nor abnormal extra-axial fluid collections are shown. Imaged portions of the paranasal sinuses and mastoid air cells are clear. The orbits appear normal. There are no acute fractures of the calvaria or scalp swelling. Impression: No acute intracranial hemorrhage, no evidence of acute territorial infarction or other acute intracra nial disease process. ACT 112: Negative or not required by law. Electronically signed by: Hieu Bucio M.D. 10/09/2023 6:49 AM
[2023-10-09] MEDS: ACETAMINOPHEN 1,000 MG/100 ML VIAL IV STA (06:59)
--- NOTE | 2023-10-09 07:04 | Cardiology Progress Note ---
Date of Service October 09, 2023 Assessment & Plan (1) Coronary artery disease: (2) Chest pain: (3) Elevated troponin: (4) Chronic heart failure with preserved ejection fraction (HFpEF): (5) Aortic stenosis: (6) Mitral stenosis: (7) CKD (chronic kidney disease) stage 3, GFR 30-59 ml/min: Plan IMPRESSION: Medically complex 78-year-old female with known history of coronary artery disease, chronic diastolic CHF secondary to valvular heart disease with aortic and mitral stenosis. Presents due to symptoms of chest pain and shortness of breath. Elevation in high-sensitivity troponin 61>>71.5>>76.9>>110.1 EKG showed SB 53 bpm--no acute ST segment changes. Coronary artery disease: Status post PCI to the left main, 07/27/2022. Ongoing symptoms of chest discomfort with shortness of breath and nausea 1. Continue ASA 81 mg daily Chronic diastolic CHF: Valvular heart disease with aortic and mitral stenosis -There is concern that the aortic stenosis is now classified as severe which could be the cause of some of her symptoms of chest pain shortness of breath. Imaging has been discoordinate and the past. She is scheduled to see a valve clinic in November 2023. -Discussed potential referral to [facility] in [place] for right and left cardiac catheterization with coronary angiography when renal function and electrolytes have stabilized. -Hesitant to recommend repeat LANEY given esophageal strictures and difficulty swallowing. Last LANEY was performed at [facility]. -Overall patient appears euvolemic/hypovolemic on exam. Renal function appears stabilized with holding of diuretics and 500 cc NS bolus. Sodium remains low. Appreciate nephrology recommendations. CKD stage 3b/4 + Hyponatremia: -Na was 123>>128>>124- Per nephrology "Etiology likely true hypovolemic Hyponatremia sec to Diarrhea and Diuretics". Appreciated recommendations. Hypertension: -Continue antihypertensive regimen with carvedilol, losartan, and amlodipine as ordered Case discussed with Dr. Morales. Will follow. I spent a total of 30 minutes on the date of service in preparation, delivery, and documentation of the care provided to the patient excluding any time spent in the performance of separately billed services. DENIA Pino Department of Cardiology, [facility] This chart was completed in part utilizing Speech Voice Recognition Software. Grammatical errors, random word insertions, pronoun errors, and incomplete sentences are an occasional consequence of this system due to software limitations, ambient noise, and hardware issues. Any formal questions or concerns about the content, text, or information contained within the body of this dictation should be directly addressed to the provider for clarification. Admission and Anticipated Discharge Date Admission Date: October 07, 2023 Supervising Physician Co-Signing Physician Notes I have reviewed the advance practitioner's documentation, and I agree with, and take responsibility for the plan of care. 78-year-old female present to the emergency department with multiple symptoms including decreased appetite, leg pain, back pain, headache, abdominal discomfort, diarrhea, exertional chest tightness and chest pain. Recurrent chest discomfort noted overnight. Serum sodium trending downward today. Nephrology concern regarding possible component of SIADH. IV Lasix ordered. PE. Hypertensive. General: NAD, chronically ill, awake alert and orient x 3. Heart: Regular rhythm, 3/6 late peaking systolic ejection murmur heard best at the right second costal space. Lungs: Clear bilateral, no rales, rhonchi, wheeze. Extremities: Trace edema. + Tenderness to palpation. No erythema. A/P: 78-year-old female with unstable anginal symptoms in the setting of coronary disease, prior left main stenting, and probable severe aortic valve stenosis per most recent echocardiogram. Discussed further evaluation of coronary disease and aortic stenosis with cardiac catheterization. Recommend addition of IV heparin infusion. Patient agreeable for transfer to [facility] for further evaluation. Case discussed with inpatient cardiology service at [facility] who accepts patient in transfer. Continue current cardiovascular medications including atorvastatin, aspirin, carvedilol, losartan, hydralazine, and amlodipine. Subjective This is a medically complex 78-year-old female who presented to the emergency department with multiple symptoms including decreased appetite, leg pain, back pain, headache, abdominal discomfort, diarrhea, exertional chest tightness and chest pain. Presentation consistent with dehydration in the setting of poor p.o. intake and resultant hypovolemic hyponatremia. Recent echocardiogram in the outpatient setting with concerns regarding discordant aortic valve data and possible severe aortic valve stenosis. 10/08/2023: Dehydration improving with 500 cc normal saline bolus and holding of diuretics, nephrology following. In regards to anginal symptoms discussed [facility] evaluation for right and left heart catheterization in the setting of coronary artery disease and valvular heart disease (aortic and mitral stenosis) 10/09/2023: Labs: Ongoing hyponatremia 123>>128>>124. Serum creatinine of 1.84. HS Trop 31>>71>>76>>110>>109>> 111.2 Tele: SR 50-60s I&O: +610 mL Weight: 61.3 kg >> 61.1 kg Upon entrance into the room patient resting in bed. SOn at bedside. Had chest pain and headaches over night. Currently chest pain free but mild head ache remains. No shortness of breath, palpitations, dizziness, syncope or near syncope. No orthopnea, PND, or increased lower extremity edema. No fever, chills, cough, hematochezia, melena, or hemoptysis. Review of Systems Review of Systems: All systems reviewed & are unremarkable except as noted in HPI & below Physical Exam Constitutional: + frail appearing; no acute distress Respiratory: normal respiratory effort, lungs clear to auscultation Cardiovascular: Rate/Rhythm: regular rate and regular rhythm Heart Sounds: normal S1 and + murmur (+3/6 systolic murmur, harsh ); + abnormal S2 (diminished S2) Vessels: no JVD Extremities: no edema Gastrointestinal (Abdomen): normal bowel sounds, soft, nontender, no hepatosplenomegaly Results & Data Vital Signs (Past 12 Hours) Vital Signs Temp Pulse Pulse Resp BP Pulse Ox O2 Del Method 10/09/23 03:09 36.6 C 50 L 18 142/51 H 95 Room Air 10/09/23 00:58 50 L 10/08/23 23:48 37.0 C 52 L 18 136/56 L 96 Room Air 10/08/23 20:21 36.7 C 55 L 18 155/55 H 93 Room Air Laboratory Results Cardiac Enzymes 10/08/23 10/09/23 Range/Units 16:09 06:24 Troponin I High Sens 109.0 H* 111.2 H* (0-14) pg/ml CBC 10/09/23 Range/Units 05:52 WBC 4.61 L (4.8-10.8) K/ul RBC 3.07 L (4.20-5.40) M/uL Hgb 9.0 L (12.0-16.0) g/dl Hct 26.7 L (37.0-47.0) % Plt Count 182 (130-400) K/uL Comprehensive Metabolic Panel 10/09/23 Range/Units 05:52 Sodium 124 L (136-145) mmol/L Potassium 4.3 (3.5-5.1) mmol/L Chloride 93 L (98-107) mmol/L Carbon Dioxide 23 (21-32) mmol/L BUN 58 H (6-23) mg/dl Creatinine 1.84 H (0.6-1.2) mg/dl Glucose 96 (70-99(Fasting)) mg/dl Calcium 8.7 (8.6-10.3) mg/dl Albumin 3.5 (3.4-5.0) gm/dl Intake and Output 10/08/23 10/09/23 10/09/23 22:59 06:59 14:59 Intake Total 240 / 410 120 / 410 150 / 150 Output Total 300 / 300 Balance -60 / 110 120 / 110 150 / 150 Intake: IV 150 / 150 Acetaminophen 1,000 mg In 100 100 / 100 ml @ 400 mls/hr IV NOW STA Rx#: [id number] cefTRIAXone SODIUM 2,000 mg In 50 / 50 Dextrose 5 % Mini-B 50 ml @ 100 mls/hr IV Q24H [facility] Rx#: [id number] Oral 240 / 360 120 / 360 Output: Urine 300 / 300 Other: # Unmeasured Voids 1 Weight 61.4 kg 61.1 kg 62.8 kg Weight Measurement Method Built in [facility] Patient Weight 10/10/23 06:59 Weight 62.8 kg (1) Coronary artery disease Associated angina: with unspecified form of angina Coronary Disease- Associated Artery/Lesion type: [place] artery [place] vs. transplanted heart: [place] heart Qualified Code(s): I25.119 - Atherosclerotic heart disease of [place] coronary artery with unspecified angina pectoris (2) Chest pain Chest pain type: unspecified Qualified Code(s): R07.9 - Chest pain, unspecified (5) Aortic stenosis Cardiac valve disease etiology: nonrheumatic Qualified Code(s): I35.0 - Nonrheumatic aortic (valve) stenosis (6) Mitral stenosis Cardiac valve disease etiology: nonrheumatic Qualified Code(s): I34.2 - Nonrheumatic mitral (valve) stenosis (7) CKD (chronic kidney disease) stage 3, GFR 30-59 ml/min Chronic kidney disease stage 3 subtype: unspecified whether 3a or 3b Qualified Code(s): N18.30 - Chronic kidney disease, stage 3 unspecified
--- NOTE | 2023-10-09 10:09 | Nephrology Progress Note ---
Date of Service October 09, 2023 Assessment & Plan Admission and Anticipated Discharge Date Admission Date: October 07, 2023 Subjective Assessment & Plan (1) SHEA (acute kidney injury): She has baseline CKD 3B/4 with baseline creat in the 1.6--2.0 range. Came in at 2.0 and now 1.8. cause of SHEA likely hemodynamic. making urine. (2) Hyponatremia: na was 123 and then 128 after some NS. But now down again. etiology is not pure volume Depletion but combination with Some degree of SIADH also, urea 15 bid. lasix 80 iv x 1 FFR 1200 ml per day. was drinking lot more at home. (3) CKD (chronic kidney disease) stage 4, GFR 15-29 ml/min: S--no new issues. No Active chest pain or SOB. PHYSICAL EXAM: GENERAL: Patient is in no acute distress. awake and alert. Normal accurate Speech HEENT: No acute trauma, normocephalic atraumatic, mucous membranes moist, no nasal congestion. NECK: No stridor, no adenopathy, no meningismus, trachea is midline. LUNGS: Few scattered crackles heard, no wheezing, no respiratory distress. HEART: 3/6 to 4/6 systolic murmur, regular rate and rhythm. ABDOMEN: Soft, nontender, no peritonitis. EXTREMITIES: Trace bilateral pedal edema. NEUROLOGIC: Oriented x 3, no acute motor or sensory deficits, no focal weakness. SKIN: No jaundice, no diaphoresis. Results & Data Vital Signs (Past 12 Hours) Vital Signs Temp Pulse Pulse Resp BP Pulse Ox O2 Del Method 10/09/23 07:48 Room Air 10/09/23 07:40 36.6 C 50 L 16 166/48 H 97 Room Air 10/09/23 06:55 49 L 10/09/23 03:09 36.6 C 50 L 18 142/51 H 95 Room Air 10/09/23 00:58 50 L 10/08/23 23:48 37.0 C 52 L 18 136/56 L 96 Room Air
[2023-10-09] MEDS: FUROSEMIDE 40 MG/4 ML VIAL IV ONE (10:21)
[2023-10-09] MEDS: UREA (UREA-NA) 15 GM PACK PO SCH (11:09)
[2023-10-09] MEDS: HEPARIN SODIUM/DEXTROSE 25,000 UNITS/500 ML BAG IV SCH (11:10)
[2023-10-09 11:13] LABS: Basophils # (auto) 0.03 K/uL (0.00-0.20); Basophils % (auto) 0.6 %; Eosinophils # (auto) 0.27 K/uL (0.00-0.50); Eosinophils % (auto) 5.7 %; Immature Granulocytes # (auto) 0.01 K/uL (0.01-0.20); Immature Granulocytes % (auto) 0.2 %; Lymphocytes # (auto) 1.18 K/uL (1.20-3.40); Monocytes # (auto) 0.62 K/uL (0.11-0.59); Monocytes % (auto) 13.1 %; Neutrophils # (auto) 2.61 K/uL (1.40-6.50); Neutrophils % (auto) 55.4 %
[2023-10-09 11:36] LABS: INR 1.1 (0.9-1.1); Partial Thromboplastin Ratio 1.3; Partial Thromboplastin Time 36 Seconds (21-31); Prothrombin Time 11.5 Seconds (9.0-12.0)
[2023-10-09] MEDS: Heparin IV Adult Wt-Based Low-Dose *NO* INITIAL Bolus Protocol IV STA (12:00)
--- NOTE | 2023-10-09 15:01 | Electrocardiogram Report ---
Test Reason : Blood Pressure : / mmHG Vent. Rate : 049 BPM Atrial Rate : 049 BPM P-R Int : 206 ms QRS Dur : 124 ms QT Int : 458 ms P-R-T Axes : 117 -35 090 degrees QTc Int : 413 ms Poor data quality, interpretation may be adversely affected Sinus bradycardia Left axis deviation Left ventricular hypertrophy with QRS widening and repolarization abnormality Abnormal ECG When compared with ECG of 08-OCT-2023 15:28, No significant change was found Confirmed by Philipp Shannon ([id number]) on 10/09/2023 3:01:09 PM Referred By: REFERRED SELF Confirmed By:Wander Shannon
[2023-10-09] MEDS: NITROGLYCERIN SL 0.4 MG/TAB TAB SL PRN (15:53)
--- NOTE | 2023-10-09 16:06 | Hospitalist Progress Note ---
Date of Service October 09, 2023 Assessment & Plan (1) Chest pain: (2) Elevated troponin: (3) Coronary artery disease: (4) Dyspnea: (5) Aortic stenosis: (6) Hypertension: (7) Chronic heart failure with preserved ejection fraction (HFpEF): Plan: 78 year old female with PMH HTN, dyslipidemia, CAD s/p stent L main artery, moderate-severe aortic stenosis, chronic HFpEF, chronic anemia, hiatal hernia, esophageal strictures, GERD, chronic back pain, and others listed below presented to ER with c/o chest pain, SOB, myalgias, generalized weakness, anorexia. In ER afebrile, BP: 90/60, P: 55, R: 20, O2: 98% on RA. Repeat BP: 161/67. Na: 123, was 135 on 09/21/23 History mod-severe History CAD s/p LU LMCA in 07/2022 History of cardiac cath 07/27/2022: Ostial to proximal LMCA 70% stenosis s/p PCI, LU History cardiac cath 05/31/2022: 60% ostial left main stenosis, mild mid LAD disease, 30% mid left circumflex stenosis, mild-moderate diffuse RCA disease (dominant with rPDA and rPL) Troponin was 61.1 trended up to 110. I reviewed the EKG and admission similar to the one from July 2022. Chest x-ray noted stable cardiomegaly and large hiatal hernia Recent echo from 09/25/2023 (Per card office note) EF: 55-59% without wall motion abnormalities. Left atrium severely enlarged. Aortic valve severely calcified with Doppler assessment consistent with moderate aortic stenosis however on 2D visualization severe aortic stenosis is suggested. mild aortic regurgitation, mitral valve severely calcified with mild MS and mild MR, moderate tricuspid regurgitation, severe pulmonary hypertension With the patient's cardiac history status post stents, patient was evaluated by cardiology Cardiology and recommended transfer to [facility] for left and right heart cath, hemodynamic studies in view of patient's coronary artery disease and valvular disease. Patient was hesitant about transfer yesterday because she wanted to talk to her children. Patient sounds at bedside today and son examined patient and agree with transfer to [facility]. I called transfer center and patient was accepted by Dr. Granado for transfer to [facility] once bed is available Possible NSTEMI based on chest pain and elevated troponin. Started on heparin drip Continue carvedilol, amlodipine, hydralazine, losartan with holding parameters (8) Hyponatremia: (9) CKD (chronic kidney disease) stage 3, GFR 30-59 ml/min: Plan: Per outpatient records, Cr and GFR trend has been CKD 3b to 4 BUN: 68. Cr: 2.0. Cr was 2.0 on 09/21/2023, 1.9 in 09/20/2023 and 1.7-1.9 in fall of 2022 Got 500ml NSS in ER Sodium of 123 on admission. Serum osmolality was 289. Urine osmolality was 291 Sodium trended up to 128 yesterday and down again to 124 this morning. 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 Nephrology urea 15 twice daily, 1 dose of Lasix and fluid restriction of 1200 cc/day Monitor Na (10) Hyperlipidemia: Plan: Continue atorvastatin (11) Chronic back pain: Plan: On chronic hydrocodone Scheduled Tylenol, lidocaine patch Continue home hydrocodone as needed as BP's allow (12) Abnormal urinalysis: Plan: UA: 5-10 WBC, 5-10 epithelial, 4+bacteria. No leukocytosis. Denied urinary symptoms Urine culture growing Klebsiella Asymptomatic bacteruria vs UTI Continue ceftriaxone considering other nonspecific complaints (13) Hiatal hernia: (14) GERD (gastroesophageal reflux disease): Plan: History esophageal strictures, esophageal dysmotility disorder Continue PPI DVT Prophylaxis Heparin drip Full Code Follows with Dr Appiah for routine care I spent a total of 60 minutes coordinating, documenting and providing care for this patient excluding time spent in performance of separately billed services Admission and Anticipated Discharge Date Admission Date: October 07, 2023 Subjective Patient seen and examined. Reported episode of chest pain overnight that has resolved. Reports headache overnight which is still present but improved. CT head done overnight did not show any acute abnormality. Currently denies any nausea, vomiting, abdominal pain, diarrhea. Denies any shortness of breath at rest. Denies fever, chills, dysuria, frequency urgency Physical Exam Constitutional: + well hydrated; no acute distress Eyes: PERRL, conjunctivae normal, anicteric sclerae ENMT: external ear and nose normal, oropharynx normal Respiratory: normal respiratory effort; no respiratory distress Auscultati on: lungs clear to auscultation bilaterally Cardiovascular: Rate/Rhythm: regular rhythm and + bradycardic Heart Sounds: + murmur Gastrointestinal (Abdomen): normal bowel sounds, soft, nontender, no hepatosplenomegaly Musculoskeletal: No pedal edema Neurologic: PERRL, EOMI, accommodation nl, no face palsy, no dysarthria Psychiatric: A+Ox3, euthymic affect Results & Data Results & Data Vital Signs (Past 12 Hours) Vital Signs Temp Pulse Pulse Resp BP Pulse Ox O2 Del Method 10/09/23 15:15 36.7 C 52 L 20 171/50 H 96 Room Air 10/09/23 14:39 51 L 10/09/23 10:31 36.4 C L 52 L 14 174/57 H 95 Room Air 10/09/23 07:48 Room Air 10/09/23 07:40 36.6 C 50 L 16 166/48 H 97 Room Air 10/09/23 06:55 49 L Laboratory Results Abnormal lab results 10/08/23 10/09/23 10/09/23 Range/Units 16:09 05:52 06:24 WBC 4.61 L (4.8-10.8) K/ul RBC 3.07 L (4.20-5.40) M/uL Hgb 9.0 L (12.0-16.0) g/dl Hct 26.7 L (37.0-47.0) % Lymph # (Auto) 1.18 L (1.20-3.40) K/uL [place] # (Auto) 0.62 H (0.11-0.59) K/uL APTT (21-31) Seconds Sodium 124 L (136-145) mmol/L Chloride 93 L (98-107) mmol/L BUN 58 H (6-23) mg/dl Creatinine 1.84 H (0.6-1.2) mg/dl BUN/Creatinine Ratio 31.5 H (10-20) Troponin I High Sens 109.0 H* 111.2 H* (0-14) pg/ml 10/09/23 Range/Units 10:40 WBC (4.8-10.8) K/ul RBC (4.20-5.40) M/uL Hgb (12.0-16.0) g/dl Hct (37.0-47.0) % Lymph # (Auto) (1.20-3.40) K/uL [place] # (Auto) (0.11-0.59) K/uL APTT 36 H (21-31) Seconds Sodium (136-145) mmol/L Chloride (98-107) mmol/L BUN (6-23) mg/dl Creatinine (0.6-1.2) mg/dl BUN/Creatinine Ratio (10-20) Troponin I High Sens (0-14) pg/ml (1) Chest pain Chest pain type: unspecified Qualified Code(s): R07.9 - Chest pain, unspecified (3) Coronary artery disease Coronary Disease-Associated Artery/Lesion type: [place] artery [place] vs. transplanted heart: [place] heart Associated angina: with unspecified form of angina Qualified Code(s): I25.119 - Atherosclerotic heart disease of [place] coronary artery with unspecified angina pectoris (9) CKD (chronic kidney disease) stage 3, GFR 30-59 ml/min Chronic kidney disease stage 3 subtype: unspecified whether 3a or 3b Qualified Code(s): N18.30 - Chronic kidney disease, stage 3 unspecified
[2023-10-09] MEDS: oxyCODONE HCL IR 5 MG TAB (IMMEDIATE RELEASE) PO PRN (16:46)
[2023-10-09 18:27] LABS: ANTI-Xa, UFH(UnfractionatedHep 0.79 IU/ml (0.3-0.7)
[2023-10-09] MEDS: ACETAMINOPHEN 325 MG TAB PO PRN (23:24)
[2023-10-10 02:03] LABS: ANTI-Xa, UFH(UnfractionatedHep 0.84 IU/ml (0.3-0.7)
--- NOTE | 2023-10-10 07:05 | Cardiology Progress Note ---
Date of Service October 10, 2023 Assessment & Plan (1) Coronary artery disease: (2) Chest pain: (3) Elevated troponin: (4) Chronic heart failure with preserved ejection fraction (HFpEF): (5) Aortic stenosis: (6) Mitral stenosis: (7) CKD (chronic kidney disease) stage 3, GFR 30-59 ml/min: Plan IMPRESSION: Medically complex 78-year-old female with known history of coronary artery disease, chronic diastolic CHF secondary to valvular heart disease with aortic and mitral stenosis. Presents due to symptoms of chest pain and shortness of breath. Elevation in high-sensitivity troponin 61>>71.5>>76.9>>110.1 EKG showed SB 53 bpm--no acute ST segment changes. Coronary artery disease: Status post PCI to the left main, 07/27/2022. Ongoing symptoms of chest discomfort with shortness of breath and nausea. Elevated HS troponin. 1. Continue ASA 81 mg daily 2. SL nitro as needed for CP. 3. Continue Heparin gtt. Chronic diastolic CHF: Valvular heart disease with aortic and mitral stenosis -There is concern that the aortic stenosis is now classified as severe which could be the cause of some of her symptoms of chest pain shortness of breath. Imaging has been discoordinate and the past. She is scheduled to see a valve clinic in November 2023. -Discussed potential referral to [facility] in [place] for right and left cardiac catheterization with coronary angiography when renal function and electrolytes have stabilized-- transfer accepted, awaiting bed. -Hesitant to recommend repeat LANEY given esophageal strictures and difficulty swallowing. Last LANEY was performed [place] [facility] [place] -Given 80 mg IV Lasix yesterday by nephrology (10/09/2023)-- slight increase in scr this am. Appreciate nephrology recommendations. 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 Appreciate recs. Hypertension: -Continue antihypertensive regimen with carvedilol, losartan, and amlodipine as ordered Case discussed with Dr. Morales. Will follow. I spent a total of 30 minutes on the date of service in preparation, delivery, and documentation of the care provided to the patient excluding any time spent in the performance of separately billed services. DENIA Pino Department of Cardiology, [facility] This chart was completed in part utilizing Speech Voice Recognition Software. Grammatical errors, random word insertions, pronoun errors, and incomplete sentences are an occasional consequence of this system due to software limitations, ambient noise, and hardware issues. Any formal questions or concerns about the content, text, or information contained within the body of this dictation should be directly addressed to the provider for clarification. Admission and Anticipated Discharge Date Admission Date: October 07, 2023 Supervising Physician Co-Signing Physician Notes I have reviewed the advance practitioner's documentation, and I agree with, and take responsibility for the plan of care. 78-year-old female present to the emergency department with multiple symptoms including decreased appetite, leg pain, back pain, headache, abdominal discomfort, diarrhea, exertional chest tightness and chest pain. Continues to report intermittent chest discomfort somewhat relieved with nitroglycerin. IV heparin infusing. Serum sodium unchanged today after treatment with IV furosemide, however, BUN and creatinine have risen. Nephrology concern regarding possible component of SIADH. PE. Hypertensive. General: NAD, chronically ill, awake alert and orient x 3. Heart: Regular rhythm, 3/6 late peaking systolic ejection murmur heard best at the right second costal space. Lungs: Clear bilateral, no rales, rhonchi, wheeze. Extremities: Trace edema. + Tenderness to palpation. No erythema. A/P: 78-year-old female with unstable anginal symptoms in the setting of coronary disease, prior left main stenting, and probable severe aortic valve stenosis per most recent echocardiogram. Discussed further evaluation of coronary disease and aortic stenosis with cardiac catheterization. Continue IV heparin infusion. Transfer to [facility] for invasive assessment when bed available. Continue current cardiovascular medications including atorvastatin, aspirin, carvedilol, losartan, hydralazine, and amlodipine. Serum sodium unchanged. Possible SIADH. Appreciate nephrology input. Subjective This is a medically complex 78-year-old female who presented to the emergency department with multiple symptoms including decreased appetite, leg pain, back pain, headache, abdominal discomfort, diarrhea, exertional chest tightness and chest pain. Presentation consistent with dehydration in the setting of poor p.o. intake and resultant hypovolemic hyponatremia. Recent echocardiogram in the outpatient setting with concerns regarding discordant aortic valve data and possible severe aortic valve stenosis. 10/08/2023: Dehydration improving with 500 cc normal saline bolus and holding of diuretics, nephrology following. In regards to anginal symptoms discussed [facility] [place] [place] for right and left heart catheterization in the setting of coronary artery disease and valvular heart disease (aortic and mitral stenosis) 10/09/2023: Renal dysfunction stable. Ongoing hyponatremia, felt there is a degree of SIADH involved, per nephrology 80 mg of IV Lasix was given. Having atypical chest pain, administered sublingual nitroglycerin Heparin gtt started. Awaiting transfer to [facility] [place]--patient excepted, awaiting bed 10/10/2023: Labs: Ongoing hyponatremia 123>>128>>124 >> 124. Scr 1.84>>1.94. Tele: SR 50-60s I&O: +1.2L Weight: 61.3 kg >> 61.1 kg >>66.7 kg Upon entrance into the room patient resting in bed. Did not sleep well over night. Notes "aches and pains". Currently chest pain free. No head aches. No shortness of breath, palpitations, dizziness, syncope or near syncope. No orthopnea, PND, or increased lower extremity edema. No fever, chills, cough, hematochezia, melena, or hemoptysis. Review of Systems Review of Systems: All systems reviewed & are unremarkable except as noted in HPI & below Physical Exam Constitutional: + frail appearing; no acute distress Respiratory: normal respiratory effort, lungs clear to auscultation Cardiovascular: Rate/Rhythm: regular rate and regular rhythm Heart Sounds: normal S1 and + murmur (+3/6 systolic murmur, harsh ); + abnormal S2 (diminished S2) Vessels: no JVD Extremities: no edema Gastrointestinal (Abdomen): normal bowel sounds, soft, nontender, no hepatosplenomegaly Results & Data Vital Signs (Past 12 Hours) Vital Signs Temp Pulse Pulse Resp BP Pulse Ox O2 Del Method 10/10/23 03:12 36.8 C 51 L 18 164/57 H 95 Room Air 10/10/23 00:42 51 L 10/09/23 23:03 36.8 C 51 L 18 147/53 H 95 Room Air 10/09/23 20:02 36.6 C 54 L 18 172/54 H 93 Room Air Laboratory Results Coagulation 10/09/23 Range/Units 10:40 PT 11.5 (9.0-12.0) Seconds APTT 36 H (21-31) Seconds CBC 10/09/23 10/10/23 Range/Units 05:52 08:47 WBC 4.61 L 5.45 (4.8-10.8) K/ul RBC 3.07 L 2.98 L (4.20-5.40) M/uL Hgb 9.0 L 8.8 L (12.0-16.0) g/dl Hct 26.7 L 26.1 L (37.0-47.0) % Plt Count 182 172 (130-400) K/uL Neut # (Auto) 2.61 (1.40-6.50) K/uL Lymph # (Auto) 1.18 L (1.20-3.40) K/uL [place] # (Auto) 0.62 H (0.11-0.59) K/uL Eos # (Auto) 0.27 (0.00-0.50) K/uL Baso # (Auto) 0.03 (0.00-0.20) K/uL Comprehensive Metabolic Panel 10/10/23 Range/Units 08:47 Sodium 124 L (136-145) mmol/L Potassium 4.7 (3.5-5.1) mmol/L Chloride 92 L (98-107) mmol/L Carbon Dioxide 27 (21-32) mmol/L BUN 93 H D (6-23) mg/dl Creatinine 1.94 H (0.6-1.2) mg/dl Glucose 95 (70-99(Fasting)) mg/dl Calcium 9.0 (8.6-10.3) mg/dl Albumin 3.4 (3.4-5.0) gm/dl Intake and Output 10/09/23 10/10/23 10/10/23 22:59 06:59 14:59 Intake Total 320.017 / 1465.884 215.867 / 1465.884 38.317 / 38.317 Output Total 300 / 800 Balance 320.017 / 665.884 -84.133 / 665.884 38.317 / 38.317 Intake: IV 100.017 / 385.884 135.867 / 385.884 38.317 / 38.317 Heparin Sodium/Dextrose 25,000 100.017 / 235.884 135.867 / 235.884 38.317 / 38.317 units In 500 ml @ 550 UNITS/HR 11 mls/hr IV .Q24H MELLISA Rx#: [id number] Oral 220 / 1080 80 / 1080 Output: Urine Amount (Catheter) 300 / 300 External 300 / 300 Other: # Unmeasured Voids 1 Weight 66.7 kg Weight Measurement Method Built in [facility] (1) Coronary artery disease Associated angina: with unspecified form of angina Coronary Disease- Associated Artery/Lesion type: [place] artery [place] vs. transplanted heart: saxman heart Qualified Code(s): I25.119 - Atherosclerotic heart disease of sax[place] coronary artery with unspecified angina pectoris (2) Chest pain Chest pain type: unspecified Qualified Code(s): R07.9 - Chest pain, unspecified (5) Aortic stenosis Cardiac valve disease etiology: nonrheumatic Qualified Code(s): I35.0 - Nonrheumatic aortic (valve) stenosis (6) Mitral stenosis Cardiac valve disease etiology: nonrheumatic Qualified Code(s): I34.2 - Nonrheumatic mitral (valve) stenosis (7) CKD (chronic kidney disease) stage 3, GFR 30-59 ml/min Chronic kidney disease stage 3 subtype: unspecified whether 3a or 3b Qualified Code(s): N18.30 - Chronic kidney disease, stage 3 unspecified
[2023-10-10] MEDS: HYDROcodone/ACETAMINOPHEN 10/325 TAB PO PRN (07:56)
[2023-10-10 09:17] LABS: Hematocrit (blood only) 26.1 % (37.0-47.0); Hemoglobin 8.8 g/dl (12.0-16.0); Mean Corpuscular Hemoglobin 29.5 pg (25.0-34.0); Mean Corpuscular Hgb Conc 33.7 g/dL (32.0-36.0); Mean Corpuscular Volume 87.6 fL (80.0-100.0); Mean Platelet Volume 10.3 fL (9.4-12.4); Platelet Count 172 K/uL (130-400); RDW Coefficient of Variation 13.1 % (11.5-14.5); RDW Standard Deviation 41.9 fL (36.4-46.3); Red Blood Count 2.98 M/uL (4.20-5.40); White Blood Count 5.45 K/ul (4.8-10.8)
[2023-10-10 09:43] LABS: Albumin Level 3.4 gm/dl (3.4-5.0); BUN Creatinine Ratio 47.9 (10-20); Creatinine Clr Calc Pharmacy 21.2 ml/min; Est GFR (African American) 27.7 ml/min; Est GFR (Non-African American) 23.9 ml/min; Magnesium 1.7 mg/dl (1.7-2.4); Phosphorus 3.6 mg/dl (2.5-4.9); Potassium 4.7 mmol/L (3.5-5.1)
--- NOTE | 2023-10-10 10:11 | Cardiology Consultation ---
Date of Consultation October 10, 2023 History of Present Illness Reason for Consultation: CAD chest Attending Physician: Erika Contreras MD History of Present Illness dddd Allergies Allergy/AdvReac Type Severity Reaction Status Date / Time gabapentin AdvReac Intermediate cough Verified 10/07/23 17:13 oxycodone AdvReac Intermediate "makes me Verified 10/07/23 17:13 go crazy" ramipril AdvReac Intermediate cough Verified 10/07/23 17:13 Home Medications Medication Instructions Recorded Confirmed Type cranberry concentrate-ascorbic 4 cap PO DAILY 07/01/19 10/07/23 History acid 140 mg-100 mg capsule (Cranberry Plus Vitamin C) docusate sodium 100 mg tablet 100 - 200 mg PO QPM 07/01/19 10/07/23 History (Stool Softener) hydrocodone 10 mg-acetaminophen 1 tab PO BID PRN pain,severe 07/01/19 10/07/23 History 325 mg tablet losartan 50 mg tablet 50 mg PO QAM 07/01/19 10/07/23 History nitroglycerin 0.4 mg sublingual 0.4 mg sublingual UD PRN Angina 07/01/19 10/07/23 History tablet omeprazole 20 mg capsule,delayed 20 mg PO QAM 07/01/19 10/07/23 History release aspirin 81 mg chewable tablet 81 mg PO DAILY 09/01/20 10/07/23 History carvedilol 6.25 mg tablet 6.25 mg PO BID #60 tabs 10/04/20 10/07/23 Rx torsemide 10 mg tablet 10 mg PO UD 03/23/22 10/07/23 History acetaminophen 650 mg 650 mg PO Q8H PRN Pain 06/15/22 10/07/23 History tablet,extended release cholecalciferol (vitamin D3) 25 25 mcg PO QAM 06/15/22 10/07/23 History mcg (1,000 unit) capsule (Vitamin D3) hydralazine 50 mg tablet 50 mg PO TID 06/15/22 10/07/23 History pyridoxine (vitamin B6) 50 mg 50 mg PO DAILY 06/15/22 10/07/23 History tablet (Vitamin B-6) turmeric root extract 500 mg tablet 500 mg PO DAILY 06/15/22 10/07/23 History vitamin E 670 mg (1,000 unit) 670 mg PO DAILY 06/15/22 10/07/23 History capsule ascorbic acid (vitamin C) 1,000 mg 0.5 g PO QAM 07/30/22 10/07/23 History tablet (Vitamin C) amlodipine 5 mg tablet 5 mg PO QAM 10/07/23 10/07/23 History atorvastatin 20 mg tablet 20 mg PO QAM 10/07/23 10/07/23 History cyanocobalamin (vitamin B-12) 1,000 mcg PO QAM 10/07/23 10/07/23 History 1,000 mcg tablet (Vitamin B-12) pediatric multivitamin 1 tab PO 2XWK 10/07/23 10/07/23 History no.203-ferrous sulfate 18 mg chewable tablet (Flintstones with Iron) torsemide 10 mg tablet 20 mg PO MOWEFR 10/07/23 10/07/23 History Patient History Medical History Chronic heart failure with preserved ejection fraction (HFpEF) Myalgia Generalized weakness Acute exacerbation of congestive heart failure COVID Hypertensive crisis Chronic sialoadenitis Poor historian Chronic back pain Osteoarthritis History of esophageal dilatation GERD (gastroesophageal reflux disease) Leaky heart valve per pt aorta--follows with Dr. Gonzáles Hypertension Hyperlipidemia Cardiac murmur CKD (chronic kidney disease) stage 3, GFR 30-59 ml/min Esophageal motility disorder "noted on barium swallow 10/2014" Chawla's esophagus Aortic stenosis "moderately severe by echo September 2013" Coronary artery disease LM PCI 07/27/2022 Surgical History History of colonoscopy History of umbilical hernia repair History of cardiac cath x3--last 12/2018 no stents History of hysterectomy History of lumpectomy cant remember which breast---benign fatty tissue History of bilateral tubal ligation History of carpal tunnel release of both wrists History of lumbar spinal fusion History of total left knee replacement (TKR) History of appendectomy History of cholecystectomy History of esophagogastroduodenoscopy (EGD) History of tooth extraction History of tonsillectomy History of sinus surgery Family History Other No family history of adverse response to anesthesia No family history of bleeding disorder Social History Smoking Status: Former smoker Tobacco Type: Cigarettes Second Hand Exposure: No; Do You Dip or Chew Tobacco: No; Hx Alcohol Use: No Hx Substance Use: No Preferred Language: Frisian Communication Ability: Effective Securities Analyst Required: No Beliefs That Will Affect Care: Tenriism Tenriism 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 Sons help daily. Other Information That Helps Us Care for You: No Feels Safe at Home: Yes Safety Concerns: Feels Safe At This Time Assistive Devices: Cane, Glasses, Walker and Wheelchair Review of Systems Cardiovascular: + dyspnea at rest and + dyspnea on exert ion; no chest pain with activity, no paroxysmal nocturnal dyspnea, no palpitations, no syncope and no claudication Physical Exam Cardiovascular: RRR, no murmur, no edema Heart Sounds: normal S1 and + cardiac rub; no abnormal opening sounds and no click Results & Data Vital Signs (Past 12 Hours) Vital Signs Temp Pulse Pulse Resp BP Pulse Ox O2 Del Method 10/10/23 08:37 Room Air 10/10/23 08:21 52 L 18 162/53 H 94 Room Air 10/10/23 07:56 54 L 10/10/23 07:33 36.8 C 82 16 173/55 H 95 Room Air 10/10/23 07:00 54 L 10/10/23 03:12 36.8 C 51 L 18 164/57 H 95 Room Air 10/10/23 00:42 51 L 10/09/23 23:03 36.8 C 51 L 18 147/53 H 95 Room Air
--- NOTE | 2023-10-10 10:11 | Nephrology Progress Note ---
Date of Service October 10, 2023 Assessment & Plan Admission and Anticipated Discharge Date Admission Date: October 07, 2023 Subjective Assessment & Plan (1) SHEA (acute kidney injury): She has baseline CKD 3B/4 with baseline creat in the 1.6--2.0 range. Came in at 2.0 and now 1.9 cause of SHEA likely hemodynamic. making urine. Creat still rising but slowly. (2) Hyponatremia: na was 123 and then 128 after some NS. But now down again to 124. Did not change with Urea and Iv lasix alone. However BUN went up really fast to 93. etiology is not pure volume Depletion but combination with Some degree of SIADH also, Stop urea 15 will try NS and IV lasix combination---1000 ml at 80 ml/hr and lasix 60 iv bid. Check BMP again in Afternoon if patient still here FFR 1200 ml per day. was drinking lot more at home. (3) CKD (chronic kidney disease) stage 4, GFR 15-29 ml/min: S--no new issues. No Active chest pain or SOB. Not transferred to [facility] [place] yet. PHYSICAL EXAM: GENERAL: Patient is in no acute distress. awake and alert. Normal accurate Speech HEENT: No acute trauma, normocephalic atraumatic, mucous membranes moist, no nasal congestion. NECK: No stridor, no adenopathy, no meningismus, trachea is midline. LUNGS: Few scattered crackles heard, no wheezing, no respiratory distress. HEART: 3/6 to 4/6 systolic murmur, regular rate and rhythm. ABDOMEN: Soft, nontender, no peritonitis. EXTREMITIES: Trace bilateral pedal edema. NEUROLOGIC: Oriented x 3, no acute motor or sensory deficits, no focal weakness. SKIN: No jaundice, no diaphoresis. Results & Data Vital Signs (Past 12 Hours) Vital Signs Temp Pulse Pulse Resp BP Pulse Ox O2 Del Method 10/10/23 08:37 Room Air 10/10/23 08:21 52 L 18 162/53 H 94 Room Air 10/10/23 07:56 54 L 10/10/23 07:33 36.8 C 82 16 173/55 H 95 Room Air 10/10/23 07:00 54 L 10/10/23 03:12 36.8 C 51 L 18 164/57 H 95 Room Air 10/10/23 00:42 51 L 10/09/23 23:03 36.8 C 51 L 18 147/53 H 95 Room Air
[2023-10-10] MEDS: SODIUM CHLORIDE 0.9% 1,000 ML IV SCH (10:37)
[2023-10-10] MEDS: FUROSEMIDE 40 MG/4 ML VIAL IV SCH (10:37)
[2023-10-10] MEDS: CALCIUM CARBONATE 500 MG CHEWABLE TAB PO PRN (12:47)
--- NOTE | 2023-10-10 15:44 | Hospitalist Progress Note ---
Date of Service October 10, 2023 Assessment & Plan (1) Chest pain: (2) Elevated troponin: (3) Coronary artery disease: (4) Dyspnea: (5) Aortic stenosis: (6) Hypertension: (7) Chronic heart failure with preserved ejection fraction (HFpEF): Plan: 78 year old female with PMH HTN, dyslipidemia, CAD s/p stent L main artery, moderate-severe aortic stenosis, chronic HFpEF, chronic anemia, hiatal hernia, esophageal strictures, GERD, chronic back pain, and others listed below presented to ER with c/o chest pain, SOB, myalgias, generalized weakness, anorexia. In ER afebrile, BP: 90/60, P: 55, R: 20, O2: 98% on RA. Repeat BP: 161/67. Na: 123, was 135 on 09/21/23 History mod-severe History CAD s/p LU LMCA in 07/2022 History of cardiac cath 07/27/2022: Ostial to proximal LMCA 70% stenosis s/p PCI, LU History cardiac cath 05/31/2022: 60% ostial left main stenosis, mild mid LAD disease, 30% mid left circumflex stenosis, mild-moderate diffuse RCA disease (dominant with rPDA and rPL) Troponin was 61.1 trended up to 110. I reviewed the EKG and admission similar to the one from July 2022. Chest x-ray noted stable cardiomegaly and large hiatal hernia Recent echo from 09/25/2023 (Per card office note) EF: 55-59% without wall motion abnormalities. Left atrium severely enlarged. Aortic valve severely calcified with Doppler assessment consistent with moderate aortic stenosis however on 2D visualization severe aortic stenosis is suggested. mild aortic regurgitation, mitral valve severely calcified with mild MS and mild MR, moderate tricuspid regurgitation, severe pulmonary hypertension With the patient's cardiac history status post stents, patient was evaluated by cardiology Cardiology and recommended transfer to [facility] for left and right heart cath, hemodynamic studies in view of patient's coronary artery disease and valvular disease. Patient was accepted by Dr. Granado for transfer to [facility] once bed is available Possible NSTEMI based on chest pain and elevated troponin. Started on heparin drip Still awaiting bed availability Continue carvedilol, amlodipine, hydralazine, losartan with holding parameters (8) Hyponatremia: (9) CKD (chronic kidney disease) stage 3, GFR 30-59 ml/min: Plan: Per outpatient records, Cr and GFR trend has been CKD 3b to 4 BUN: 68. Cr: 2.0. Cr was 2.0 on 09/21/2023, 1.9 in 09/20/2023 and 1.7-1.9 in fall of 2022 Got 500ml NSS in ER Sodium of 123 on admission. Serum osmolality was 289. Urine osmolality was 291 Na is 124, Cr 1.94 today Nephrology on board. On NSS, lasix being managed by Nephrology (10) Hyperlipidemia: Plan: Continue atorvastatin (11) Chronic back pain: Plan: On chronic hydrocodone Tylenol, lidocaine patch Continue home hydrocodone as needed as BP's allow (12) Abnormal urinalysis: Plan: UA: 5-10 WBC, 5-10 epithelial, 4+bacteria. No leukocytosis. Denied urinary symptoms Urine culture growing Klebsiella Possible UTI Continue ceftriaxone considering other nonspecific complaints (13) Hiatal hernia: (14) GERD (gastroesophageal reflux disease): Plan: History esophageal strictures, esophageal dysmotility disorder Continue PPI DVT Prophylaxis Heparin drip Full Code Follows with Dr Appiah for routine care I spent a total of 45 minutes coordinating, documenting and providing care for this patient excluding time spent in performance of separately billed services Admission and Anticipated Discharge Date Admission Date: October 07, 2023 Subjective Patient seen and examined Still having intermittent chest pain, occasionally resolved with nitro Denied any other complaints on ROS Physical Exam Constitutional: + well hydrated; no acute distress Eyes: PERRL, conjunctivae normal, anicteric sclerae ENMT: external ear and nose normal, oropharynx normal Respiratory: normal respiratory effort; no respiratory distress Auscultation: lungs clear to auscultation bilaterally Cardiovascular: Rate/Rhythm: regular rhythm and + bradycardic Heart Sounds: + murmur Gastrointestinal (Abdomen): normal bowel sounds, soft, nontender, no hepatosplenomegaly Neurologic: PERRL, EOMI, accommodation nl, no face palsy, no dysarthria Psychiatric: A+Ox3, euthymic affect Results & Data Results & Data Vital Signs (Past 12 Hours) Vital Signs Temp Pulse Pulse Resp BP Pulse Ox O2 Del Method 10/10/23 14:03 50 L 10/10/23 11:31 36.7 C 51 L 18 147/44 H 96 Room Air 10/10/23 08:37 Room Air 10/10/23 08:21 52 L 18 162/53 H 94 Room Air 10/10/23 07:56 54 L 10/10/23 07:33 36.8 C 82 16 173/55 H 95 Room Air 10/10/23 07:00 54 L Laboratory Results Abnormal lab results 10/09/23 10/10/23 10/10/23 Range/Units 17:05 00:35 08:47 RBC 2.98 L (4.20-5.40) M/uL Hgb 8.8 L (12.0-16.0) g/dl Hct 26.1 L (37.0-47.0) % Heparin Anti-Xa, Unfract 0.79 H* 0.84 H* (0.3-0.7) IU/ml Sodium 124 L (136-145) mmol/L Chloride 92 L (98-107) mmol/L BUN 93 H D (6-23) mg/dl Creatinine 1.94 H (0.6-1.2) mg/dl BUN/Creatinine Ratio 47.9 H (10-20) (1) Chest pain Chest pain type: unspecified Qualified Code(s): R07.9 - Chest pain, unspecified (3) Coronary artery disease Coronary Disease-Associated Artery/Lesion type: [place] artery [place] vs. transplanted heart: [place] heart Associated angina: with unspecified form of angina Qualified Code(s): I25.119 - Atherosclerotic heart disease of [place] coronary artery with unspecified angina pectoris (9) CKD (chronic kidney disease) stage 3, GFR 30-59 ml/min Chronic kidney disease stage 3 subtype: unspecified whether 3a or 3b Qualified Code(s): N18.30 - Chronic kidney disease, stage 3 unspecified
--- NOTE | 2023-10-11 00:19 | Discharge Summary ---
Date of Service October 11, 2023 Admission HPI Per Admitting Provider Patient is 78 year old female with PMH HTN, dyslipidemia, CAD s/p stent L main artery, moderate-severe aortic stenosis, chronic HFpEF, chronic anemia, hiatal hernia, esophageal strictures, GERD, chronic back pain, and others listed below presented to ER with c/o chest pain and other multiple medical complaints. History obtained from patient, patient's son, outpatient chart review. Patient reports has been having ongoing intermittent chest tightness and SOB. Sometimes resolves with rest after rest in about 10 minutes and sometimes she will use SL nitro with resolution. Has been following with outpatient cardiology. Seen in cardiology office 09/14/2023 for intermittent chest pain that can occur with sitting or exertion and some shortness of breath and palpitations with reported weight gain. She was instructed to use torsemide 20 mg Sunday and Fridays and 10 mg all other days and spironolactone was also added. Follow up visit with cardiology on 09/28/2023 with reported weight loss and decreased LE edema and spironolactone was discontinued as patient was concerned with underlying CKD. She was started on Imdur 30 mg daily for ongoing intermittent chest discomfort. Was discussion about possible further consideration of LANEY, cardiac cath and possible referral to valve clinic. Patient states felt sick with nausea and feeling "off" after taking Imdur so stopped taking it after a couple of days. She is unsure if her symptoms have improved since stopping it. She feels her BLE had improved but feels worse again. Reports legs feel cold chronically but hasn't noticed skin discoloration. Patient also states has been really restricting her salt intake and with history esophageal strictures feels not much she can eat and admits to decreased appetite and poor oral intake. Patient also reports chronic back pain. She also feels having bilateral arm aching, nausea, poor appetite increased past couple of weeks. Takes hydrocodone BID without much pain relief. Reports ongoing issues with difficulty swallowing but denies overt food bolus. Patient states they have been hesitant to do any further esophageal dilations. States had some rhinorrhea today. Last night sore throat but non currently. Denies cough or fevers. Reports always cold, denies diaphoresis. Also c/o ongoing abdominal pain across upper abdomen and sides, denies any recent worsening of abdominal pain. Taking Miralax and stool softeners. Yesterday several BMs. Today episode of loose stool. Patient presented to ER today as felt her symptoms not improving and felt needed further evaluation. States on way in to ER today had episode of chest tightness and SOB and EMS started oxygen and symptoms resolved. Denies any recurrent CP or SOB while being in ER. She reports has been having intermittent BAUMAN's also. Feels generalized weakness past several weeks. Denies falls. Denies vomiting, melena, syncope, vision changes, neck pain, palpitations, choking, rashes, urinary symptoms. Discharge Data Consultations 10/07/23 16:34 ED Decision to Admit Stat 10/07/23 21:27 Consult Cardiology Routine Consult Nephrology Routine Hospital Course (1) Chest pain: (2) Elevated troponin: (3) Coronary artery disease: (4) Dyspnea: (5) Aortic stenosis: (6) Hypertension: (7) Chronic heart failure with preserved ejection fraction (HFpEF): 78 year old female with PMH HTN, dyslipidemia, CAD s/p stent L main artery, moderate-severe aortic stenosis, chronic HFpEF, chronic anemia, hiatal hernia, esophageal strictures, GERD, chronic back pain, and others listed below presented to ER with c/o chest pain, SOB, myalgias, generalized weakness, anorexia. In ER afebrile, BP: 90/60, P: 55, R: 20, O2: 98% on RA. Repeat BP: 161/67. Na: 123, was 135 on 09/21/23 History mod-severe History CAD s/p LU LMCA in 07/2022 History of cardiac cath 07/27/2022: Ostial to proximal LMCA 70% stenosis s/p PCI, LU History cardiac cath 05/31/2022: 60% ostial left main stenosis, mild mid LAD disease, 30% mid left circumflex stenosis, mild-moderate diffuse RCA disease (dominant with rPDA and rPL) Troponin was 61.1 trended up to 110. I reviewed the EKG and admission similar to the one from July 2022. Chest x-ray noted stable cardiomegaly and large hiatal hernia Recent echo from 09/25/2023 (Per card office note) EF: 55-59% without wall motion abnormalities. Left atrium severely enlarged. Aortic valve severely calcified with Doppler assessment consistent with moderate aortic stenosis however on 2D visualization severe aortic stenosis is suggested. mild aortic regurgitation, mitral valve severely calcified with mild MS and mild MR, moderate tricuspid regurgitation, severe pulmonary hypertension With the patient's cardiac history status post stents, patient was evaluated by cardiology Cardiology and recommended transfer to [facility] for left and right heart cath, hemodynamic studies in view of patient's coronary artery disease and valvular disease. Patient was accepted by Dr. Granado for transfer to [facility] once bed is available Possible NSTEMI based on chest pain and elevated troponin. Started on heparin drip Still awaiting bed availability Continue carvedilol, amlodipine, hydralazine, losartan with holding parameters (8) Hyponatremia: (9) CKD (chronic kidney disease) stage 3, GFR 30-59 ml/min: Per outpatient records, Cr and GFR trend has been CKD 3b to 4 BUN: 68. Cr: 2.0. Cr was 2.0 on 09/21/2023, 1.9 in 09/20/2023 and 1.7-1.9 in fall of 2022 Got 500ml NSS in ER Sodium of 123 on admission. Serum osmolality was 289. Urine osmolality was 291 Na is 124, Cr 1.94 today Nephrology on board. On NSS, lasix being managed by Nephrology (10) Hyperlipidemia: Continue atorvastatin (11) Chronic back pain: On chronic hydrocodone Tylenol, lidocaine patch Continue home hydrocodone as needed as BP's allow (12) Abnormal urinalysis: UA: 5-10 WBC, 5-10 epithelial, 4+bacteria. No leukocytosis. Denied urinary symptoms Urine culture growing Klebsiella Possible UTI Continue ceftriaxone considering other nonspecific complaints (13) Hiatal hernia: (14) GERD (gastroesophageal reflux disease): History esophageal strictures, esophageal dysmotility disorder Continue PPI DVT Prophylaxis Heparin drip Full Code Follows with Dr Appiah for routine care I spent a total of 45 minutes coordinating, documenting and providing care for this patient excluding time spent in performance of separately billed services Plan (Preceding documentation as per admitting provider.) 10/11/2023, 0000 AM Notified by [facility] Transfer Center of [facility] bed and transport availability. Total time to prepare this discharge summary was less than 10 minutes.
--- NOTE | 2023-10-12 12:18 | Electrocardiogram Report ---
Test Reason : Blood Pressure : / mmHG Vent. Rate : 051 BPM Atrial Rate : 041 BPM P-R Int : 000 ms QRS Dur : 120 ms QT Int : 452 ms P-R-T Axes : 000 -33 039 degrees QTc Int : 416 ms Junctional rhythm with AV dissociation Left axis deviation Abnormal ECG Confirmed by Philipp Shannon ([id number]) on 10/12/2023 12:17:51 PM Referred By: REFERRED SELF Confirmed By:Wander Shannon
== END 2023-10-11 02:08 | disposition short-term general hospital (02) | DRG 281 ==
LOC: ED 14:25 → SUATTDRO 17:12 → EDINP 17:12 → 2N 21:27

== ENCOUNTER 2023-10-18 21:05 | Inpatient (IN) ==
[2023-10-18 22:05] LABS: Basophils # (auto) 0.05 K/uL (0.00-0.20); Eosinophils # (auto) 0.23 K/uL (0.00-0.50); Eosinophils % (auto) 4.4 %; Hematocrit (blood only) 27.6 % (37.0-47.0); Hemoglobin 9.1 g/dl (12.0-16.0); Immature Granulocytes # (auto) 0.02 K/uL (0.01-0.20); Immature Granulocytes % (auto) 0.4 %; Lymphocytes # (auto) 0.83 K/uL (1.20-3.40); Lymphocytes % (auto) 15.9 %; Mean Corpuscular Hemoglobin 29.3 pg (25.0-34.0); Mean Corpuscular Volume 88.7 fL (80.0-100.0); Mean Platelet Volume 10.9 fL (9.4-12.4); Monocytes % (auto) 11.5 %; Neutrophils # (auto) 3.49 K/uL (1.40-6.50); Neutrophils % (auto) 66.8 %; Platelet Count 206 K/uL (130-400); RDW Coefficient of Variation 13.3 % (11.5-14.5); RDW Standard Deviation 43.3 fL (36.4-46.3); Red Blood Count 3.11 M/uL (4.20-5.40); White Blood Count 5.22 K/ul (4.8-10.8)
[2023-10-18 22:51] LABS: Bilirubin,Total 0.4 mg/dl (0.2-1.0); Calcium 9.3 mg/dl (8.6-10.3); Potassium 4.9 mmol/L (3.5-5.1)
[2023-10-18 22:57] LABS: Albumin Globulin Ratio 1.3 (0.9-2); BUN Creatinine Ratio 43.5 (10-20); Creatinine Clr Calc Pharmacy 16.1 ml/min; Est GFR (African American) 19.9 ml/min; Est GFR (Non-African American) 17.1 ml/min
--- NOTE | 2023-10-18 23:07 | Emergency Department Note ---
Impression & Plan SHEA (acute kidney injury), Acute hyponatremia, Anemia ED Provider Note NAME: ANTON JAVED AGE: 78 SEX: F : 1945 ARRIVES VIA: Walk-In INFORMANT: Patient ED PROVIDER(S): Darnell Zelaya DO CHIEF COMPLAINT: Weakness, SHEA and hyponatremia HPI: Patient is an 78-year-old female who presents ER with a past medical history of CHF, CKD, mitral stenosis, small bowel obstruction, referred in for acute kidney injury. She was just recently admitted for hyponatremia and CHF. She was placed on Lasix at discharge. Creatinine has trended up and consequently she was referred in. She denies any headache or change in vision. No new shortness of breath or belly pain. No nausea vomiting or diarrhea. She did admit to some mild chest pain earlier but notes this comes and goes intermittently and is nothing new. ADDITIONAL HISTORY OBTAINED: Per HPI Chronic Medical/Social Conditions Affecting Care: Per HPI PAST MEDICAL HISTORY:See Below PAST SURGICAL HISTORY:See Below FAMILY HISTORY:See Below SOCIAL HISTORY:See Below HOME MEDICATIONS:See Below ALLERGIES:See Below VITALS:See Below PHYSICAL EXAMINATION: GENERAL: Sitting up in bed, alert, well appearing, well nourished, no distress, non-toxic EYE EXAM: normal conjunctiva. OROPHARYNX: mucous membranes are dry NECK: supple, no nuchal rigidity, no adenopathy, non-tender LUNGS: Clear to auscultation. Normal chest wall mechanics HEART: +KAMILA, S1 normal and S2 normal ABDOMEN: abdomen soft, non-tender, normo-active bowel sounds, no masses, no rebound or guarding. UPPER EXTREMITIES: upper extremities are grossly normal. LOWER EXTREMITIES: Mild pitting edema bilaterally NEURO EXAM: Normal sensorium, cranial nerves II-XII grossly intact, normal speech, no gross weakness of arms, no gross weakness of legs. MEDICAL DECISION MAKING: Patient is an 78-year-old female with extensive past medical history that presents the ER for above-stated complaint. IV was established blood work was obtained. Labs show no significant leukocytosis. Mild anemia at 9.1 is actually improved from previous which is likely from diuresis. BMP with a hyponatremia at 128. BUN has trended up significantly at 111. Creatinine at 2.55 up from a baseline of 1.7. Glucose at 116. Bilirubin LFTs unremarkable. Lipase is normal. With the patient's tenuous renal state in light of the mild hyponatremia she was discussed with the hospitalist. Troponin was elevated at 95 likely consistent with her previous baseline. EKG was not significantly changed from previous. Patient was discussed with hospitalist Dr. Redding for further evaluation management treatment. Consults/Care Managements Discussions: Per [facility] Triage Nursing notes reviewed. Limited review of prior medical records performed Vital Signs: reviewed and remarkable for no significant abnormalities Differential diagnosis: Infection, dehydration, metabolic abnormality, hypo/hyperglycemia, electrolyte disturbance, anemia, hypoxia, cardiac sources, intracerebral event, toxicologic, neurologic, as well as other pathologies. ER treatment provided: See below Diagnostics interpreted by me include EKG and cardiac monitoring as listed below: -Cardiac Monitoring: An order was placed for continuous cardiac monitoring. The monitor shows a rate of 50 with sinus rhythm. -ECG: Sinus rhythm rate of 48 Left axis Septal Q waves QTc 423 -Laboratory studies:Interpreted by me as stated above in MDM and shown below. Imaging studies: Xrays: As interpreted by me: Portable AP upright 1 view of the chest shows no focal infiltrate CTs show: none Procedures:none Critical Care: None Past Med/Surg History Medical History Chronic heart failure with preserved ejection fraction (HFpEF) Myalgia Generalized weakness Acute exacerbation of congestive heart failure COVID Hypertensive crisis Chronic sialoadenitis Poor historian Chronic back pain Osteoarthritis History of esophageal dilatation GERD (gastroesophageal reflux disease) Leaky heart valve per pt aorta--follows with Dr. Gonzáles Hypertension Hyperlipidemia Cardiac murmur CKD (chronic kidney disease) stage 3, GFR 30-59 ml/min Esophageal motility disorder "noted on barium swallow 10/2014" Chawla's esophagus Aortic stenosis "moderately severe by echo September 2013" Coronary artery disease LM PCI 07/27/2022 Surgical History History of colonoscopy History of umbilical hernia repair History of cardiac cath x3--last 12/2018 no stents History of hysterectomy History of lumpectomy cant remember which breast---benign fatty tissue History of bilateral tubal ligation History of carpal tunnel release of both wrists History of lumbar spinal fusion History of total left knee replacement (TKR) History of appendectomy History of cholecystectomy History of esophagogastroduodenoscopy (EGD) History of tooth extraction History of tonsillectomy History of sinus surgery Family History Other No family history of adverse response to anesthesia No family history of bleeding disorder Social History Smoking Status: Former smoker Tobacco Type: Cigarettes Second Hand Exposure: No; Do You Dip or Chew Tobacco: No; Hx Alcohol Use: No Hx Substance Use: No Preferred Language: Georgian Communication Ability: Effective Bander Operator Required: No Beliefs That Will Affect Care: [facility]aritan Samaritan Beliefs: 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 Sons help daily. Feels Safe at Home: Yes Assistive Devices: Cane, Glasses, Walker and Wheelchair Allergies Allergies Allergy/AdvReac Type Severity Reaction Status Date / Time gabapentin AdvReac Intermediate cough Verified 10/07/23 17:13 oxycodone AdvReac Intermediate "makes me Verified 10/07/23 17:13 go crazy" ramipril AdvReac Intermediate cough Verified 10/07/23 17:13 Home Meds Home Medications Medication Instructions Recorded Confirmed cranberry concentrate-ascorbic 4 cap PO DAILY 07/01/19 10/07/23 acid 140 mg-100 mg capsule (Cranberry Plus Vitamin C) docusate sodium 100 mg tablet 100 - 200 mg PO QPM 07/01/19 10/07/23 (Stool Softener) hydrocodone 10 mg-acetaminophen 1 tab PO BID PRN pain,severe 07/01/19 10/07/23 325 mg tablet losartan 50 mg tablet 50 mg PO QAM 07/01/19 10/07/23 nitroglycerin 0.4 mg sublingual 0.4 mg sublingual UD PRN Angina 07/01/19 10/07/23 tablet omeprazole 20 mg capsule,delayed 20 mg PO QAM 07/01/19 10/07/23 release aspirin 81 mg chewable tablet 81 mg PO DAILY 09/01/20 10/07/23 torsemide 10 mg tablet 10 mg PO UD 03/23/22 10/07/23 acetaminophen 650 mg 650 mg PO Q8H PRN Pain 06/15/22 10/07/23 tablet,extended release cholecalciferol (vitamin D3) 25 25 mcg PO QAM 06/15/22 10/07/23 mcg (1,000 unit) capsule (Vitamin D3) hydralazine 50 mg tablet 50 mg PO TID 06/15/22 10/07/23 pyridoxine (vitamin B6) 50 mg 50 mg PO DAILY 06/15/22 10/07/23 tablet (Vitamin B-6) turmeric root extract 500 mg tablet 500 mg PO DAILY 06/15/22 10/07/23 vitamin E 670 mg (1,000 unit) 670 mg PO DAILY 06/15/22 10/07/23 capsule ascorbic acid (vitamin C) 1,000 mg 0.5 g PO QAM 07/30/22 10/07/23 tablet (Vitamin C) amlodipine 5 mg tablet 5 mg PO QAM 10/07/23 10/07/23 atorvastatin 20 mg tablet 20 mg PO QAM 10/07/23 10/07/23 cyanocobalamin (vitamin B-12) 1,000 mcg PO QAM 10/07/23 10/07/23 1,000 mcg tablet (Vitamin B-12) pediatric multivitamin 1 tab PO 2XWK 10/07/23 10/07/23 no.203-ferrous sulfate 18 mg chewable tablet (Flintstones with Iron) torsemide 10 mg tablet 20 mg PO MOWEFR 10/07/23 10/07/23 Previous Rx's Medication Instructions Recorded carvedilol 6.25 mg tablet 6.25 mg PO BID #60 tabs 10/04/20 Results & Data (ED) Vital Signs Vital Signs - 24 hr 10/18/23 21:06 10/18/23 22:47 10/18/23 22:47 Temperature 36.6 C Temperature Source Temporal Artery Scan Pulse Rate 51 L Pulse Rate [Apical] 48 L Respiratory Rate 17 16 Respiratory Effort / Characteristics Non-Labored Spontaneous Respiratory Depth Normal Respiratory Pattern Regular Blood Pressure 156/62 H Blood Pressure [Right Arm] 149/61 H Blood Pressure Mean 93 Blood Pressure Mean [Right Arm] 90 Pulse Oximetry 96 96 Oxygen Delivery Method Room Air Room Air Sepsis Recent Fever Within 48 Hours No Sepsis New/Unexplained Change in Mental Status No Sepsis Action Taken by Nursing No Action Required 10/18/23 22:49 Temperature Temperature Source Pulse Rate 48 L Pulse Rate [Apical] Respiratory Rate Respiratory Effort / Characteristics Respiratory Depth Respiratory Pattern Blood Pressure Blood Pressure [Right Arm] Blood Pressure Mean Blood Pressure Mean [Right Arm] Pulse Oximetry Oxygen Delivery Method Sepsis Recent Fever Within 48 Hours Sepsis New/Unexplained Change in Mental Status Sepsis Action Taken by Nursing Laboratory Data 10/18/23 21:30 10/18/23 21:30 Lab Results 10/18/23 Range/Units 21:30 WBC 5.22 (4.8-10.8) K/ul RBC 3.11 L (4.20-5.40) M/uL Hgb 9.1 L (12.0-16.0) g/dl Hct 27.6 L (37.0-47.0) % MCV 88.7 (80.0-100.0) fL MCH 29.3 (25.0-34.0) pg MCHC 33.0 (32.0-36.0) g/dL RDW Std Deviation 43.3 (36.4-46.3) fL RDW Coeff of Breanne 13.3 (11.5-14.5) % Plt Count 206 (130-400) K/uL MPV 10.9 (9.4-12.4) fL Immature Gran % (Auto) 0.4 % Neut % (Auto) 66.8 % Lymph % (Auto) 15.9 % Terry % (Auto) 11.5 % Eos % (Auto) 4.4 % Baso % (Auto) 1.0 % Neut # (Auto) 3.49 (1.40-6.50) K/uL Lymph # (Auto) 0.83 L (1.20-3.40) K/uL Terry # (Auto) 0.60 H (0.11-0.59) K/uL Eos # (Auto) 0.23 (0.00-0.50) K/uL Baso # (Auto) 0.05 (0.00-0.20) K/uL Immature Gran # (Auto) 0.02 (0.01-0.20) K/uL Sodium 128 L (136-145) mmol/L Potassium 4.9 (3.5-5.1) mmol/L Chloride 96 L (98-107) mmol/L Carbon Dioxide 23 (21-32) mmol/L Anion Gap 9 (3-11) BUN 111 H (6-23) mg/dl Creatinine 2.55 H (0.6-1.2) mg/dl Est Cr Clr Drug Dosing 16.1 ml/min Est GFR ( Amer) 19.9 ml/min Est GFR (Non-Af Amer) 17.1 ml/min BUN/Creatinine Ratio 43.5 H (10-20) Glucose 116 H (70-99(Fasting)) mg/dl Calcium 9.3 (8.6-10.3) mg/dl Total Bilirubin 0.4 (0.2-1.0) mg/dl AST 40 H (13-39) U/L ALT 38 (7-52) U/L Alkaline Phosphatase 115 H (34-104) U/L Total Protein 7.0 (6.0-8.3) gm/dl Albumin 4.0 (3.4-5.0) gm/dl Globulin 3.0 (2.5-4.0) gm/dl Albumin/Globulin Ratio 1.3 (0.9-2) Lipase 48 (11-82) U/L Discharge Plan Visit Data Chief Complaint: Abnormal Labs/Diagnostic Testing Stated Complaint: Abnormal Labs/Diagnostic Testing ED Provider: Darnell Zelaya Discharge Problem: SHEA (acute kidney injury), Acute hyponatremia, Anemia Forms Stand Alone Forms: [facility] Prescriptions Prescriptions: No Action aspirin 81 mg tablet,chewable 81 mg PO DAILY losartan 50 mg Tablet 50 mg PO QAM Cranberry Plus Vitamin C 140-100 mg Capsule 4 cap PO DAILY hydrocodone-acetaminophen 10-325 mg Tablet 1 tab PO BID PRN (Reason: pain,severe) nitroglycerin 0.4 mg Tablet, Sublingual 0.4 mg sublingual UD PRN (Reason: Angina) omeprazole 20 mg Capsule,Delayed Release(Dr/Ec) 20 mg PO QAM docusate sodium [Stool Softener] 100 mg Tablet 100 - 200 mg PO QPM carvedilol 6.25 mg Tablet 6.25 mg PO BID Qty: 60 2RF ascorbic acid (vitamin C) [Vitamin C] 1,000 mg Tablet 0.5 g PO QAM Rx Instructions: 1/2 tablet dose torsemide 10 mg tablet 10 mg PO UD Rx Instructions: Sun, Tue, Thur, Sat vitamin E 670 mg (1,000 unit) Capsule 670 mg PO DAILY acetaminophen 650 mg Tablet Extended Release 650 mg PO Q8H PRN (Reason: Pain) pyridoxine (vitamin B6) [Vitamin B-6] 50 mg Tablet 50 mg PO DAILY hydralazine 50 mg tablet 50 mg PO TID cholecalciferol (vitamin D3) [Vitamin D3] 25 mcg (1,000 unit) Capsule 25 mcg PO QAM turmeric root extract 500 mg Tablet 500 mg PO DAILY atorvastatin 20 mg tablet 20 mg PO QAM cyanocobalamin (vitamin B-12) [Vitamin B-12] 1,000 mcg Tablet 1,000 mcg PO QAM amlodipine 5 mg tablet 5 mg PO QAM torsemide 10 mg tablet 20 mg PO MOWEFR Flintstones with Iron 18 mg iron Tablet,Chewable 1 tab PO 2XWK Rx Instructions: SUNDAY & WEDNESDAYS Referrals Referrals: Jazzy Appiah DO [Primary Care Provider] - Discharge Problem: Anemia Qualifiers: Anemia type: unspecified type Qualified Code(s): D64.9 - Anemia, unspecified
[2023-10-18] MEDS: SODIUM CHLORIDE 0.9% 500 ML IV ONE (23:10)
--- NOTE | 2023-10-18 23:26 | XRay Report ---
SINGLE VIEW CHEST CLINICAL HISTORY: Atypical chest pain. FINDINGS: An AP, portable, upright chest radiograph is compared to study dated 10/07/2023 and correlat ed with chest CT dated 06/16/2022. A hiatal hernia is noted. The heart Is enlarged noting atheroscler otic calcification of the thoracic aorta. The pulmonary vasculature is noncongested. Chronic intersti tial thickening is similar to previous. There is mild bibasilar scarring/atelectasis. The lungs and p leural spaces are otherwise clear. No pneumothorax is seen. The skeletal structures are osteopenic. T he bony thorax is grossly intact. Degenerative change is noted in the shoulders and spine. IMPRESSION: Cardiomegaly with no active disease in the chest. ACT 112: Negative or not required by law. Electronically signed by: Bernabe Pressley M.D. 10/18/2023 11:25 PM
--- NOTE | 2023-10-18 23:52 | History & Physical Report ---
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 Patient was recently in the hospital with generalized weakness shortness of breath and chest pains and was transferred to [facility] for left and right heart catheterization and she was also started on heparin drip for non-ST elevated AR. During her hospitalization she also seen by nephrology for SHEA and hyponatremia and she received fluids and Lasix and was on fluid restriction 1200 mill per day. At [place] she underwent left and right heart catheterization that showed mild coronary disease, moderate aortic stenosis and severely reba vated right heart pressures indicated of worsening pulmonary hypertension. No intervention was done as pulmonary hypertension was secondary to heart dysfunction and she has been medically optimized for heart failure. Left main coronary stent was patent. Mild to moderate diffuse RCA disease noted ,mild LAD disease and mild proximal left circumflex disease. Patient states since discharge she feeling weak. She is having on and off chest pains. Currently no chest pain. Denies any shortness of breath. No fevers. No cough. She states she is swallowing okay. Had headache earlier but that got resolved. Denies any dizziness. Vision is okay. No sore throat or cough. No nausea. No abdominal pain. Micturating okay. Was constipated yesterday but she took prunes and she moved moved her bowels. Stools are black because she takes iron pills. She states lower extremity edema is somewhat worse. SHEA on CKD stage III- IV Presented with creatinine of 2.5 Baseline creatinine 1.8 Will hold torsemide and losartan Seems received 500 mL of fluids in the ER Will follow repeat labs in a.m. Consult nephrology for further recommendations Hyponatremia Sodium 128 Holding diuretics Got fluids Follow repeat labs in a.m. Nephrology consulted Chronic diastolic CHF Moderate aortic stenosis Pulmonary hypertension Holding diuretics Has lower extremity edema Monitor for volume overload Will consult cardiology for further recommendations Elevated troponin Mostly demand ischemia Will follow serial enzymes Chronic back pain home pain meds Hyperlipidemia On statin CAD s/p stents Continue home medications aspirin, statin adjustment of coreq dose per cardiology as patient having bradycardia. HTN on amlodipine coreq dose adjustment per cardio for bradycardia holding losartan and torsemide will monitor. 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 Patient was recently in the hospital with generalized weakness shortness of breath and chest pains and was transferred to [facility] for left and right heart catheterization and she was also started on heparin drip for non-ST elevated AR. During her hospitalization she also seen by nephrology for SHEA and hyponatremia and she received fluids and Lasix and was on fluid restriction 1200 mill per day. At [place] she underwent left and right heart catheterization that showed mild coronary disease, moderate aortic stenosis and severely elevated right heart pressures indicated of worsening pulmonary hypertension. No intervention was done as pulmonary hypertension was secondary to heart dysfunction and she has been medically optimized for heart failure. Left main coronary stent was patent. Mild to moderate diffuse RCA disease noted ,mild LAD disease and mild proximal left circumflex disease. Patient states since discharge she feeling weak. She is having on and off chest pains. Currently no chest pain. Denies any shortness of breath. No fevers. No cough. She states she is swallowing okay. Had headache earlier but that got resolved. Denies any dizziness. Vision is okay. No sore throat or cough. No nausea. No abdominal pain. Micturating okay. Was constipated yesterday but she took prunes and she moved moved her bowels. Stools are black because she takes iron pills. She states lower extremity edema is somewhat worse. Past medical history. As mentioned above Past surgical history. Left knee arthroplasty. Left and right heart catheterization. Cardiac stent. EGD. EGD with biopsy. EGD with endoscopic ultrasound. Laparoscopic cholecystectomy with cholangiography. Right carpal tunnel surgery. Colonoscopy with biopsy. Appendectomy. Oophorectomy. Repair of umbilical hernia. Sacroiliac joint injection. Diagnostic sigmoidoscopy. Vaginal hysterectomy. Social history. Lives alone. Son lives close by. Quit smoking in 1976. Smoked 3 packs a day for 30 years. Alcohol rarely. No drug use. Family history. Father had arthritis. Cancer. Diabetes. Hypertension. Mother had CABG. Alzheimer's. Sister has hypertension. Arthritis. Allergies Allergy/AdvReac Type Severity Reaction Status Date / Time gabapentin AdvReac Intermediate cough Verified 10/07/23 17:13 oxycodone AdvReac Intermediate "makes me Verified 10/07/23 17:13 go crazy" ramipril AdvReac Intermediate cough Verified 10/07/23 17:13 Home Medications Medication Instructions Recorded Confirmed Type amlodipine 5 mg tablet 7.5 mg PO DAILY 10/19/23 10/19/23 History aspirin 81 mg tablet,delayed 81 mg PO DAILY 10/19/23 10/19/23 History release atorvastatin 20 mg tablet 20 mg PO DAILY 10/19/23 10/19/23 History carvedilol 6.25 mg tablet 12.5 mg PO BID 10/19/23 10/19/23 History hydralazine 50 mg tablet 50 mg PO TID 10/19/23 10/19/23 History hydrocodone 10 mg-acetaminophen 1 tab PO BID PRN Severe Pain 10/19/23 10/19/23 History 325 mg tablet (Scale Score 7-10) losartan 50 mg tablet 50 mg PO DAILY 10/19/23 10/19/23 History omeprazole 20 mg capsule,delayed 20 mg PO DAILY 10/19/23 10/19/23 History release torsemide 10 mg tablet 10 mg PO UD 10/19/23 10/19/23 History Past Med/Surg History Medical History Chronic heart failure with preserved ejection fraction (HFpEF) Myalgia Generalized weakness Acute exacerbation of congestive heart failure COVID Hypertensive crisis Chronic sialoadenitis Poor historian Chronic back pain Osteoarthritis History of esophageal dilatation GERD (gastroesophageal reflux disease) Leaky heart valve per pt aorta--follows with Dr. Gonzáles Hypertension Hyperlipidemia Cardiac murmur CKD (chronic kidney disease) stage 3, GFR 30-59 ml/min Esophageal motility disorder "noted on barium swallow 10/2014" Chawla's esophagus Aortic stenosis "moderately severe by echo September 2013" Coronary artery disease LM PCI 07/27/2022 Surgical History History of colonoscopy History of umbilical hernia repair History of cardiac cath x3--last 12/2018 no stents History of hysterectomy History of lumpectomy cant remember which breast---benign fatty tissue History of bilateral tubal ligation History of carpal tunnel release of both wrists History of lumbar spinal fusion History of total left knee replacement (TKR) History of appendectomy History of cholecystectomy History of esophagogastroduodenoscopy (EGD) History of tooth extraction History of tonsillectomy History of sinus surgery Family History Other No family history of adverse response to anesthesia No family history of bleeding disorder Social History Smoking Status: Never smoker Tobacco Type: Cigarettes Second Hand Exposure: No; Do You Dip or Chew Tobacco: No; Hx Alcohol Use: No Hx Substance Use: No Preferred Language: Canadian Communication Ability: Effective Supervisor Assembly Required: No Beliefs That Will Affect Care: Christianity Christianity Beliefs: Would like to see registered art therapist marital status: / Current Living Situation: Alone Current Living Situation Comment: From home. Sons help daily. Feels Safe at Home: Yes Safety Concerns: Feels Safe At This Time Assistive Devices: Cane and Walker Review of Systems Review of Systems: All systems reviewed & are unremarkable except as noted in HPI & below Physical Exam Physical Exam: General- Not in distress Head- atraumatic Eyes- PERRL. ENT- oropharynx clear, moist Neck- supple, no JVD. Lungs- clear to auscultation no wheezing or crackles. Heart- regular rate and rhythm; ESM murmur aortic area, no gallop. Abdomen- normal bowel sounds, soft, nontender, no distension. Extremities- b/l lower extremity gross edema present, no erythema seen Neuro- alert, oriented ; PERRL, no facial palsy; no dysarthria; moves extremities. Skin- warm & dry Results & Data Results & Data Vital Signs (Past 12 Hours) Vital Signs Temp Pulse Pulse Resp BP BP Pulse Ox 10/18/23 22:49 48 L 10/18/23 22:47 10/18/23 22:47 48 L 16 149/61 H 96 10/18/23 21:06 36.6 C 51 L 17 156/62 H 96 O2 Del Method 10/18/23 22:49 10/18/23 22:47 Room Air 10/18/23 22:47 10/18/23 21:06 Room Air Diagnostic Findings Laboratory Results WBC 5.22 K/ul (4.8-10.8) 10/18/23 21:30 RBC 3.11 M/uL (4.20-5.40) L 10/18/23 21:30 Hgb 9.1 g/dl (12.0-16.0) L 10/18/23 21:30 Hct 27.6 % (37.0-47.0) L 10/18/23 21:30 MCV 88.7 fL (80.0-100.0) 10/18/23 21: MCH 29.3 pg (25.0-34.0) 10/18/23 21:30 MCHC 33.0 g/dL (32.0-36.0) 10/18/23 21:30 RDW Std Deviation 43.3 fL (36.4-46.3) 10/18/23 21:30 RDW Coeff of Breanne 13.3 % (11.5-14.5) 10/18/23 21:30 Plt Count 206 K/uL (130-400) 10/18/23 21: MPV 10.9 fL (9.4-12.4) 10/18/23 21: Immature Gran % (Auto) 0.4 % 10/18/23 21: Neut % (Auto) 66.8 % 10/18/23 21: Lymph % (Auto) 15.9 % 10/18/23: [place] % (Auto) 11.5 % 10/18/23 21:30 Eos % (Auto) 4.4 % 10/18/23 21:30 Baso % (Auto) 1.0 % 10/18/23 21:30 Neut # (Auto) 3.49 K/uL (1.40-6.50) 10/18/23 21:30 Lymph # (Auto) 0.83 K/uL (1.20-3.40) L 10/18/23 21:30 [place] # (Auto) 0.60 K/uL (0.11-0.59) H 10/18/23 21:30 Eos # (Auto) 0.23 K/uL (0.00-0.50) 10/18/23 21:30 Baso # (Auto) 0.05 K/uL (0.00-0.20) 10/18/23 21:30 Immature Gran # (Auto) 0.02 K/uL (0.01-0.20) 10/18/23 21:30 Sodium 128 mmol/L (136-145) L 10/18/23 21:30 Potassium 4.9 mmol/L (3.5-5.1) 10/18/23 21:30 Chloride 96 mmol/L (98-107) L 10/18/23 21:30 Carbon Dioxide 23 mmol/L (21-32) 10/18/23 21:30 Anion Gap 9 (3-11) 10/18/23 21:30 BUN 111 mg/dl (6-23) H 10/18/23 21:30 Creatinine 2.55 mg/dl (0.6-1.2) H 10/18/23 21:30 Est Cr Clr Drug Dosing 16.1 ml/min 10/18/23 21:30 Est GFR ( Amer) 19.9 ml/min 10/18/23 21:30 Est GFR (Non-Af Amer) 17.1 ml/min 10/18/23 21:30 BUN/Creatinine Ratio 43.5 (10-20) H 10/18/23 21:30 Glucose 116 mg/dl (70-99(Fasting)) H 10/18/23 21:30 Calcium 9.3 mg/dl (8.6-10.3) 10/18/23 21:30 Total Bilirubin 0.4 mg/dl (0.2-1.0) 10/18/23 21:30 AST 40 U/L (13-39) H 10/18/23 21:30 ALT 38 U/L (7-52) 10/18/23 21:30 Alkaline Phosphatase 115 U/L (34-104) H 10/18/23 21:30 Troponin I High Sens 95.0 pg/ml (0-14) H* 10/18/23 21:30 Total Protein 7.0 gm/dl (6.0-8.3) 10/18/23 21:30 Albumin 4.0 gm/dl (3.4-5.0) 10/18/23 21:30 Globulin 3.0 gm/dl (2.5-4.0) 10/18/23 21:30 Albumin/Globulin Ratio 1.3 (0.9-2) 10/18/23 21: Lipase 48 U/L (11-82) 10/18/23 21:30 Urine Color Yellow 10/18/23 23:42 Urine Appearance Clear (Clear) 10/18/23 23:42 Urine pH 5.0 (4.5-7.5) 10/18/23 23:42 Ur Specific Braymer 1.011 (1.000-1.030) 10/18/23 23:42 Urine Protein 1+ (Negative) H 10/18/23 23:42 Urine Glucose (UA) Negative (Negative) 10/18/23 23:42 Urine Ketones Negative (Negative) 10/18/23 23:42 Urine Blood Negative (Negative) 10/18/23 23:42 Urine Nitrite Negative (Negative) 10/18/23 23:42 Urine Bilirubin Negative (Negative) 10/18/23 23:42 Urine Urobilinogen Negative (Negative) 10/18/23 23:42 Ur Leukocyte Esterase Negative (Negative) 10/18/23 23:42 Urine WBC (Auto) 1-5 /hpf (0-5) 10/18/23 23:42 Urine RBC (Auto) 0-4 /hpf (0-4) 10/18/23 23:42 U Hyaline Cast (Auto) 0 /lpf (0-5) 10/18/23 23:42 U Epithel Cells (Auto) 5-10 /lpf (0-5) H 10/18/23 23:42 Urine Bacteria (Auto) Negative (Negative) 10/18/23 23:42 Impressions Chest X-Ray 10/18/23 23:07 SINGLE VIEW CHEST CLINICAL HISTORY: Atypical chest pain. FINDINGS: An AP, portable, upright chest radiograph is compared to study dated 10/07/2023 and correlated with chest CT dated 06/16/2022. A hiatal hernia is noted. The heart Is enlarged noting atherosclerotic calcification of the thoracic aorta. The pulmonary vasculature is noncongested. Chronic interstitial thickening is similar to previous. There is mild bibasilar scarring/atelectasis. The lungs and pleural spaces are otherwise clear. No pneumothorax is seen. The skeletal structures are osteopenic. The bony thorax is grossly intact. Degenerative change is noted in the shoulders and spine. IMPRESSION: Cardiomegaly with no active disease in the chest. ACT 112: Negative or not required by law. Electronically signed by: Bernabe Pressley M.D. 10/18/2023 11:25 PM ECG Additional Comments: ECG. Sinus bradycardia with first-degree AV block at a rate of 48. Left axis deviation. Left ventricular hypertrophy Code Status & VTE Plan VTE Prophylaxis Plan VTE Prophylaxis will be ordered: Yes
[2023-10-18 23:54] LABS: Appearance Urine Clear (Clear); Bacteria Urine Automated Negative (Negative); Bilirubin Urine Negative (Negative); Blood Urine Negative (Negative); Cast Urine Automated 0 /lpf (0-5); Color Urine Yellow; Glucose Urine UA Negative (Negative); Ketones Urine Negative (Negative); Leukocyte Esterase Urine Negative (Negative); Nitrite Urine Negative (Negative); Protein Urine 1+ (Negative); RBC Urine Automated 0-4 /hpf (0-4); Specific Gravity Urine 1.011 (1.000-1.030); Urobilinogen Urine Negative (Negative)
[2023-10-19] MEDS ORDERED: NITROGLYCERIN SL 0.4 MG/TAB TAB SL PRN (00:37)
[2023-10-19] MEDS ORDERED: POLYETHYLENE (MIRALAX) 17 GM PACK PO PRN (00:37)
[2023-10-19] MEDS: HYDROcodone/ACETAMINOPHEN 10/325 TAB PO PRN (04:03)
[2023-10-19 05:59] LABS: Basophils # (auto) 0.04 K/uL (0.00-0.20); Basophils % (auto) 0.7 %; Eosinophils # (auto) 0.28 K/uL (0.00-0.50); Eosinophils % (auto) 5.1 %; Hemoglobin 8.6 g/dl (12.0-16.0); Immature Granulocytes # (auto) 0.02 K/uL (0.01-0.20); Immature Granulocytes % (auto) 0.4 %; Lymphocytes # (auto) 0.84 K/uL (1.20-3.40); Lymphocytes % (auto) 15.2 %; Mean Corpuscular Hemoglobin 29.8 pg (25.0-34.0); Mean Corpuscular Hgb Conc 33.1 g/dL (32.0-36.0); Mean Platelet Volume 10.6 fL (9.4-12.4); Monocytes # (auto) 0.64 K/uL (0.11-0.59); Monocytes % (auto) 11.6 %; Neutrophils # (auto) 3.72 K/uL (1.40-6.50); Platelet Count 187 K/uL (130-400); RDW Coefficient of Variation 13.2 % (11.5-14.5); RDW Standard Deviation 43.5 fL (36.4-46.3); Red Blood Count 2.89 M/uL (4.20-5.40); White Blood Count 5.54 K/ul (4.8-10.8)
[2023-10-19 06:10] LABS: BUN Creatinine Ratio 47.6 (10-20); Calcium 9.1 mg/dl (8.6-10.3); Est GFR (African American) 22.6 ml/min; Est GFR (Non-African American) 19.5 ml/min; Magnesium 1.9 mg/dl (1.7-2.4); Potassium 4.9 mmol/L (3.5-5.1)
[2023-10-19 06:22] LABS: Troponin I High Sensitivity 112.8 pg/ml (0-14)
[2023-10-19] MEDS: HYDROmorphone INJ 0.5 MG/0.5 ML SYR IV STA (06:40)
[2023-10-19] MEDS: PANTOprazole 40 MG TAB PO SCH (08:14)
[2023-10-19] MEDS: hydrALAZINE TAB 50 MG TAB PO SCH (08:14)
[2023-10-19] MEDS: HEPARIN SOD 5,000 UNIT/0.5 ML VIAL SQ SCH (08:15)
[2023-10-19] MEDS: amLODIPine BESYLATE 5 MG TAB PO SCH (08:16)
[2023-10-19] MEDS: ASPIRIN 81 MG ECTAB PO SCH (08:18)
[2023-10-19] MEDS: ATORVASTATIN 20 MG TAB PO SCH (08:18)
--- OUTSIDE RECORDS SUMMARY | 2023-10-19 08:46 | External Medical Summary | Summary of Care ---
Author Name Unknown Organization [facility] Address [address] [place] [address] Phone [phone] Care Team Providers Care Community Health Outreach Worker Name Role Phone Jazzy Appiah DO Primary Care Provider [phone] Reason for Visit * Reason Onset Date Comments Advice 10/18/2023 Encounter Details Date Type Department Care Team (Late st Contact Info) Description 10/18/2023 Telephone Family Medicine [address] [phone] Jazzy Appiah DO [address] [place] [address] [place] [address] Advice Allergies Active Allergy Reactions Criticality Noted Date Comments Ramipril Unknown Low 01/08/2014 Gabapentin Edema Other Medium 03/30/2011 Attempted x 3 with resultant fatigue and peripheral edema Oxycodone 06/09/2019 Makes me go crazy documented as of this encounter (statuses as of 10/18/2023) Medications Medication Sig Dispensed Refills Start Date [...] the morning. 180 Tablet 1 06/30/2022 Active Atorvastatin Calcium 20 MG Oral Tablet (Lipitor)Indications :Hyperlipidemia with target LDL less than 70 Take 1 Tablet by mouth in the morning. 90 Tablet 1 03/06/2023 Active Omeprazole 20 MG Oral Capsule Delayed Release (PriLOSEC) Take 1 Capsule by mouth in the morning. 90 Capsule 0 08/02/2023 Active HYDROcodone-Acetamin ophen 10-325 MG Oral TabletIndications:Ge [...] before bedtime. 270 Tablet 3 09/26/2023 Active amLODIPine Besylate 5 MG Oral Tablet (Norvasc)Indications :Essential hypertension with goal blood pressure less than 140/90 Take 1.5 Tablets by mouth in the morning. 135 Tablet 1 10/12/2023 Active Carvedilol 6.25 MG Oral Tablet (Coreg) Take 2 Tablets by mouth in the morning and 2 Tablets before bedtime. 180 Tablet 3 10/12/2023 Active Torsemide 10 MG Oral Tablet (Demadex)Indications :Essential hypertension with goal blood pressure less than 140/90 Take 2 (20 mg) tablets by mouth on Sunday, Sunday, and Sunday. Take 1 tablet (10 mg) all other days. (Sunday, , Sunday & Sunday) 120 Tablet 3 10/12/2023 Active MEDICAL INSTRUCTIONS Use as directed. Home health to administer 1 soap suds enema as needed for constipation. 1 Each 1 10/17/2023 Active documented as of this encounter (statuses as of 10/18/2023) Active Problems Problem Noted Date Diagnosed Date Precordial pain 10/11/2023 S/P primary angioplasty with coronary stent 11/2022 [...] disease) 03/03/2015 Degenerative disc disease, cervical 02/02/2015 Aortic valve stenosis 10/01/2013 Coronary artery disease invo lving [place] coronary artery of [place] heart without angina pectoris 05/20/2013 Hyperlipidemia with target LDL less than 70 08/23 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 02/28/2012 GENERAL OSTEOARTHROSIS Pulmonary hypertension Hiatal hernia documented as of this encounter (statuses as of 10/18/2023) Resolved Problems Problem Noted Date Diagnosed Date Resolved Date Hypertensive kidney disease with chronic kidney disease stage III 11/04/2018 06/03/2020 Overview: Per CKD protocol Carpal tunnel syndrome of left wrist 11/11/2015 09/18/2017 Tubular adenoma of colon 04/14/2015 Benign esophageal stricture 03/15/2015 09/18/2017 MEDICATION USE AGREEMENT 08/21/2014 Overview: Signed 08/21/2014 Nazanin Mayfield MD [facility] as backup Anemia 10/01/2013 04/08/2015 COPD, mild [...] cardiac Mitral valve prolapse 2013 Pulmonary hypertension 11/17 Overview: artery Edema 02/25/2015 Overview: chronic BLE edema Rheumatic fever 01/14/2015 Overview: as a child Diaphragmatic hernia 015 Umbilical hernia 02/25/2015 Diverticulosis 01/14/2015 Periumbilical hernia 015 documented as of this encounter (statuses as of 10/18/2023) Immunizations Name Administration Dates Next Due COVID-19 [...] Answer Date Recorded PHQ Adult Total Score 0 10/17/2023 Hunger Vital Sign Answer Date Recorded Within the past 12 months, y ou worried that your food would run out before you got the money to buy more. Never true 10/17/19 24 Within the past 12 months, t he food you bought just didn't last and you didn't have money to get more. Never true 10/17/2023 Sex and Gender Information Value Date Recorded [...] you have serious difficulty h earing? No 10/11/2023 Are you blind or do you have serious difficulty seeing, even when wearing glasses? No 10/11/2023 Do you have serious difficul ty walking or climbing stairs? (5 years old or older) No 10/11/2023 Do you have difficulty dress ing or bathing? (5 years old or older) Yes 10/11/2023 Because of a physical, menta l, or emotional condition, do you have difficulty doing errands alone such as visiting a doctor s office or shopping? (15 years old or older) Yes 10/11/19 24 Cognitive Status Response Date of Assessm ent Because of a physical, menta l, or emotional condition, do you have serious difficulty concentrating, remembering, or making decisions? (5 years old or older) No 10/11/2023 documented as of this encounter Miscellaneous Notes * Telephone Encounter - Vianca Jennings LPN - 10/18/2023 11:46 AM EDT HH Concerns Mindi NAVARRO, Calling from: [facility] Report/Concerns of: Medication Vitals: T 97.6 P 60 RR 18 BP 140/65 SP O2 98% RA Narrative: Checking if patient is taking Hydralazine 50mg TID. Advised that it is on patient's medication list. No further questions at this time. [facility] Nurses * Telephone Encounter - Maira Soler OSA - 10/18/2023 11:44 AM EDT Reason for patient's call: Mindi with [facility] Caller was transferred to [facility] at the nurse line. documented in this encounter Plan of Treatment Upcoming Encounters Date Type Department Care Team (Late st Contact Info) Description 10/19/2023 10:30 AM EDT Office Visit Cardiology, [facility] [address] [place] [phone] Pricilla Morse CRNP [address] [place] [address] 10/26/2023 11:50 AM EDT Office Visit [address] [phone] Jazzy Appiah, [address] [place] [address] 12/13/2023 2:30 PM EDT Cardiac Studies Cardiac Studies, [facility] [address] [facility] [place] [address] 12/19/2023 1:30 PM EDT Office Visit Cardiology, [address] [place] [address] Shyam Son MD [address] [place], [place] [id number] 04/23/2024 3:10 PM EDT Office Visit Family Medicine [address] [place] [phone] [address] [place] [address] Health Maintenance Due Date Last Done Comments Alpha-1 Antitrypsin 1961 Zoster Vaccines (1 of 2) 1993 DXA Scan 12/04/2020 12/04/2017, 07/24, 07/21/2010, Additional history exists COVID-19 Vaccine ( season) 2023 11/20/2020, 10/26/2020 Chawla's Esophagus Surveilance 04/09/2023 04/09/2020, 07/07/2019, 04/10/2012, Additional history exists *NEPHROLOGY REFERRAL DUE TO RESISTANT HTN 09/16/2023 Albumin/Creatinine Ratio 03/06/2024 023, 05/23/2022, 08/15/2021, Additional history exists GFR 04/13/2024 10/12/2023, 09/21, 09/21/2023, Additional history exists CKD PHOS USE SMARTSET 28200 10/10/202409/21, 11/22/2022, 11/18/2021, Additional history exists CKD HGB USE SMARTSET 38823 10/11/202410/11, 10/11/2023, 09/14/2023, Additional history exists O2 ASSESSMENT COMPLETED IN PAST YEAR FOR COPD 10/11/2024 10/12/2023 Depression Screening 10/16/2024 10/17/2023 DTaP,Tdap,and Td Vaccines (2 - Td or [...] this encounter Medical Devices Implanted Type Area Hand Hardener Device Identifier Shelf Expiration Date Model / Serial / Lot Cath Thermodilution 6fr - [id number] Implanted:Qty: 1 on 05/31/2022 by Yoli Rocha MD at [facility] [employer] [id number] 01/30/2024 [id number] / / [id number] Stent Synergy Xd Mr [id number] - [id number] Implanted:Qty: 1 on 07/27/2022 by Yoli Rocha MD at [facility] [employer] 11/08/2023 [id number] / / [id number] Cath Thermodilution 6fr - [id number] Implanted:Qty: 1 on 10/11/2023 by Shyam Son MD at [facility] [employer] [id number] 12/28/2024 [id number] / / [id number] documented as of this encounter Advance Directives Latest Code Status on File Code Status Date Activated Date Inactivated Comments Full Code 10/11/2023 3:51 AM 10/12/2023 5:14 PM This order reflects the patients wishes and were consensually agreed upon. Question Answer Comments Discussion of Advance Directives occurred with: Not Discussed due to patient's condition Code Status History Code Status Date Activated Date Inactivated Comments Full Code 07/27/2022 12:56 PM 07/28/2022 1:52 PM This o rder reflects the patients wishes and were consensually agreed upon. Question Answer Comments Discussion of Advance Directives occurred with: Not Discussed due to patient's condition Healthcare Agents on File Name Relationship Healthcare Agent Relationshi p Communication [facility] Adult Child Health Care Repr esentative (appointed verbally by patient or by statute hierarchy) [facility] Adult Child Health Care Repr esentative (appointed verbally by patient or by statute hierarchy) Care Teams Community Health Outreach Worker Relationship Specialty Start Date End Date Jazzy Appiah DO [address] [place] [address] [place] [address] PCP - General Internal Medicine 03/12/17 documented as of this encounter
--- OUTSIDE RECORDS SUMMARY | 2023-10-19 08:46 | External Medical Summary | Summary of Care ---
Author Name Unknown Organization [facility] Address [address] [facility] [place] [address] Phone [phone] Care Team Providers Care Termite Treater Helper Name Role Phone AppiahJazzy bonds Primary Care Provider [phone] Reason for Visit * Reason Onset Date Comments Advice 10/12/2023 Encounter Details Date Type Department Care Team (Late st Contact Info) Description 10/12/2023 Telephone Cardiology, [facility] [address] [place] [address] Pricilla Morse CRNP [address] [place] [address] Advice Allergies Active Allergy Reactions Criticality Noted Date Comments Ramipril Unknown Low 01/08/2014 Gabapentin Edema Other Medium 03/30/2011 Attempted x 3 with resultant fatigue and peripheral edema Oxycodone 06/09/2019 Makes me go crazy documented as of this encounter (statuses as of 10/16/2023) Medications Medication Sig Dispensed Refills Start Date [...] & Sunday) 120 Tablet 3 10/12/2023 Active documented as of this encounter (statuses as of 10/16/2023) Active Problems Problem Noted Date Diagnosed Date [...] stenosis 10/01/2013 Coronary artery disease invo lving [place] coronary artery of [place] heart without angina pectoris 05/20/2013 Hyperlipidemia with target LDL less than 70 08/23 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 02/28/2012 GENERAL OSTEOARTHROSIS Pulmonary hypertension Hiatal hernia documented as of this encounter (statuses as of 10/16/2023) Resolved Problems Problem Noted Date Diagnosed Date Resolved Date Hypertensive kidney disease with chronic kidney disease stage III 11/04/2018 06/03/2020 Overview: Per CKD protocol Carpal tunnel syndrome of left wrist 11/11/2015 09/18/2017 Tubular adenoma of colon 04/14/2015 Benign esophageal stricture 03/15/2015 09/18/2017 MEDICATION USE AGREEMENT 08/21/2014 Overview: Signed 08/21/2014 Nazanin May[place] MD [facility] as backup Anemia 10/01/2013 04/08/2015 COPD, [...] as of this encounter (statuses as of 10/16/2023) Immunizations Name Administration Dates Next Due COVID-19 [...] (15 years old or older) Yes 10/11/19 Cognitive Status Response Date of Assessm ent Because of a physical, menta l, or emotional condition, do you have serious difficulty concentrating, remembering, or making decisions? (5 years old or older) No 10/11/2023 documented as of this encounter Miscellaneous Notes * Telephone Encounter - Cyndi Garrido LPN - 10/16/2023 4:05 PM EDT Spoke with son Jasvir. Clarified information regarding medication. * Telephone Encounter - Pricilla Morse CRNP - 10/16/2023 2:31 PM EDT On my review it looks like patient is to be on hydralazine 50 mg TID. DENIA Charlton * Telephone Encounter - Ines Dillon OSA - 10/12/2023 4:16 PM EDT Person calling: Jasvir Relationship to patient: son Number to return call: [phone] Reason for call: pt was discharged from hospital today - [place] papers show to continue the Hydralizineand another states for pt to discontinue - which is correct? Please advise Pharmacy: na Provider Name:Lito documented in this encounter Plan of Treatment Upcoming Encounters Date Type Department Care Team (Late st Contact Info) Description 10/19/2023 10:30 AM EDT Office Visit Cardiology, [facility] [address] [place] [address] Pricilla Morse CRNP [address] [place] [address] 10/26/2023 11:50 AM EDT Office Visit Family Medicine [address] [place] [phone] Jazzy Appiah [address] [place] [address] 12/13/2023 2:30 PM EDT Cardiac Studies Cardiac Studies, [facility] 132 [facility] [place] [address] 12/19/2023 1:30 PM EDT Office Visit Cardiology, [facility] [address] [facility] [place] [address] [facility]yam [facility] [address] [facility] [address] 04/23/2024 3:10 PM EDT Office Visit Family Medicine [address] [place] [phone] Jazzy Appiah[address] [place] [address] Health Maintenance Due Date Last Done Comments [...] Additional history exists CKD PHOS USE SMARTSET 10902 10/10/202409/21, 11/22/2022, 11/18/2021, Additional history exists CKD HGB USE SMARTSET 29357 10/11/202410/11, 10/11/2023, 09/14/2023, Additional history exists O2 ASSESSMENT COMPLETED IN PAST YEAR FOR COPD 10/11/2024 10/12/2023 DTaP,Tdap,and Td Vaccines (2 - Td or [...] this encounter Medical Devices Implanted Type Area Non Linear Editor Device Identifier Shelf Expiration Date Model / Serial / Lot Cath Thermodilution 6fr - [id number] Implanted:Qty: 1 on 05/31/2022 by Yoli Rocha MD at [facility] [employer] [id number] 01/30/2024 [id number] / / [id number] Stent Synergy Xd Mr [id number] - [id number] Implanted:Qty: 1 on 07/27/2022 by Yoli Rocha MD at [facility] [employer] 11/08/2023 [id number] / / [id number] Cath Thermodilution 6fr - [id number] Implanted:Qty: 1 on 10/11/2023 by Shyam Son MD at [facility] [employer] [id number] 12/28/2024 [id number] / / [id number] documented as of this encounter Advance Directives [...] Discussed due to patient's condition Care Teams Termite Treater Helper Relationship Specialty Start Date End Date Jazzy Appiah DO [address] [place] [address] HOME [place] [id number] PCP - General Internal Medicine 03/12/17 documented as of this encounter
--- OUTSIDE RECORDS SUMMARY | 2023-10-19 08:46 | External Medical Summary | Summary of Care ---
Author Name Unknown Organization [facility] Address [address] [place] [address] Phone [phone] Care Team Providers Care Technology Project Manager Name Role Phone Jazzy Appiah Primary Care Provider [phone] Reason for Visit * Reason Onset Date Comments Appointment 10/16/2023 case management 10/16/2023 Encounter Details Date Type Department Care Team (Late st Contact Info) Description 10/16/2023 Telephone Care Coordination and Integration [address] [place] [address] Tisha Perez RN [address], [place] [phone] Appointment; case management Allergies Active Allergy Reactions Criticality Noted Date [...] stenosis 10/01/2013 Coronary artery disease invo lving [place] coronary artery of [place] heart without angina pectoris 05/20/2013 Hyperlipidemia with [...] 08/21/2014 Overview: Signed 08/21/2014 Nazanin May[place] MD [facility] as backup Anemia 10/01/2013 04/08/2015 COPD, mild [...] encounter Miscellaneous Notes * Telephone Encounter - Ora Sainz OSA - 10/16/2023 10:17 AM EDT Pt is scheduled for 10/26/23 w/ Dr. Appiah and she is aware. She was offered an appointment on 10/22/23with Dr. Morrow, and patient refused that appt. * Telephone Encounter - Tisha Perez RN - 10/16/2023 8:05 AM EDT Patient was discharged from [facility] 10/11/23, and transferred to [facility]. Patient was discharged from [facility] 10/12/23. She is to have a PCP hospital follow up appointment within one week. I don't see where one was made. Please call and assist this patient with scheduling. Her son's provide transportation. Thank you. documented in this encounter Plan of Treatment Upcoming Encounters Date Type Department Care Team (Late st Contact Info) Description 10/19/2023 10:30 AM EDT Office Visit Cardiology, [facility] 132 [facility] [place] [address] Pricilla Morse CRNP 132 [facility] [place] [address] 10/26/2023 11:50 AM EDT Office Visit Family Medicine [address] [place] [phone] [place] [address] 12/13/2023 2:30 PM EDT Cardiac Studies Cardiac Studies, [facility] [address] [place] [address] 12/19/2023 1:30 PM EDT Office Visit Cardiology, [facility] [address] [place] [address] Shyam Son MD [address] [place] [address] 04/23/2024 3:10 PM EDT Office Visit Family Medicine [address] [place] [phone] [address] [place] [address] Health Maintenance Due Date Last Done Comments [...] Additional history exists CKD PHOS USE SMARTSET 35670 10/10/202409/21, 11/22/2022, 11/18/2021, Additional history exists CKD HGB USE SMARTSET 00866 10/11/202410/11, 10/11/2023, 09/14/2023, Additional history exists O2 [...] this encounter Medical Devices Implanted Type Area Negative Stripper Device Identifier Shelf Expiration Date Model / Serial / Lot Cath Thermodilution 6fr - [id number] Implanted:Qty: 1 on 05/31/2022 by Yoli Rocha MD at [facility] [employer] [id number] 01/30/2024 [id number] / / [id number] Stent Synergy Xd Mr [id number] - [id number] Implanted:Qty: 1 on 07/27/2022 by Yoli Rocha MD at [facility] [employer] 11/08/2023 [id number] / / [id number] Cath Thermodilution 6fr - [id number] Implanted:Qty: 1 on 10/11/2023 by Shyam Son MD at [facility] [employer] [id number] 12/28/2024 [id number] / / [id number] documented as of this encounter Advance Directives [...] Discussed due to patient's condition Care Teams Technology Project Manager Relationship Specialty Start Date End Date Jazzy Appiah DO [address] [place] [address] HOME [place] [phone] PCP - General Internal Medicine 03/12/17 documented as of this encounter
--- OUTSIDE RECORDS SUMMARY | 2023-10-19 08:46 | External Medical Summary | Summary of Care ---
Author Name Unknown Organization [facility] Address [address] [place] [address] Phone [phone] Care Team Providers Care Kitchen Stewardess Name Role Phone AppiahJazzy bonds Primary Care Provider [phone] Reason for Visit * Auth/Cert Specialty Diagnoses / Procedures Referred By Viv apodaca Referred To Contact Diagnoses chest pain Pedro Luis Acharya MD [address] [place] [address] Admissions [facility] [address] [place] [address] Referral ID Status Reason Start Date Expiration Date Visits Re quested Visits Authorized [id number] Encounter Details Date Type Department Care Team (Latest Contact Info) Description 10/11/2023 7:29 AM EDT - 10/11/2023 11:59 PM EDT Hospital Encounter Cardiac Studies [facility] [address] [place] [address] Discharge Disposition: Home - Self Care Allergies Active Allergy Reactions Criticality Noted Date Comments Ramipril Unknown Low 01/08/2014 Gabapentin Edema Other Medium 03/30/2011 Attempted x 3 with resultant fatigue and peripheral edema Oxycodone 06/09/2019 Makes me go crazy documented as of this encounter (statuses as of 10/12/2023) Medications Medication Sig Dispensed Refills Start Date End Date Status STOOL SOFTENER 100 MG PO TABS 1-2 tabs twice daily for constipation 0 3 Suspended CRANBERRY PLUS VITAMIN C 140-100-3 MG-MG-UNIT PO CAPS four tablets by mouth daily 0 Suspended Cyanocobalamin (B-12) 1000 MCG CapsuleIndications :B12 deficiency Take 1 Capsule by mouth in the morning. 0 9 Suspended Ascorbic Acid (VITAMIN C) 1000 MG Tablet Take 0.5 Tablets by mouth in the morning. 0 Suspended Aspirin 81 MG Tablet Take 1 Tablet by mouth in the morning. 0 Suspended Nitroglycerin 0.3 MG Sublingual Tablet Sublingual (NITROSTAT) Place 1 Tablet under the tongue every 5 minutes as needed for Pain, Chest. up to 3 doses in 15 minutes. 100 Tab 11 0 Suspended Vitamin B6 50 MG Oral Tablet Take by mouth . Unsure dosage 0 Suspended Acetaminophen ER 650 MG Oral Tablet Extended Release Take 1 Tablet by mouth every 8 hours as needed. 0 Suspended Vitamin E 450 MG Oral Capsule Take by mouth 1 Capsule daily . 675 ug 0 Suspended Vitamin D 25 MCG (1000 UT) Oral Tablet Take 1 Tablet by mouth in the morning. 0 Suspended Losartan Potassium 50 MG Oral Tablet (Cozaar)Indication s:Chronic kidney disease, stage 3b (HCC) Take 1 Tablet (50 mg) by mouth in the morning. 180 Tablet 1 2 Suspended Additional Information Torsemide 10 MG Oral Tablet (Demadex)Indicatio ns:Essential hypertension with goal blood pressure less than 140/90 TAKE 1 TABLET BY MOUTH ONCE DAILY IN THE MORNING MAY TAKE 1 EXTRA TORSEMIDE IF WEIGHT GAIN OF 3-4 LBS OVERNIGHT 120 Tablet 3 3 10/12/19 24 Discontinued amLODIPine Besylate 5 MG Oral Tablet (Norvasc)Indicatio ns:Essential hypertension with goal blood pressure less than 140/90 Take 1 Tablet by mouth in the morning. 90 Tablet 1 3 10/12/19 24 Discontinued Atorvastatin Calcium 20 MG Oral Tablet (Lipitor)Indicatio ns:Hyperlipidemia with target LDL less than 70 Take 1 Tablet by mouth in the morning. 90 Tablet 1 3 Suspended Additional Information Omeprazole 20 MG Oral Capsule Delayed Release (PriLOSEC) Take 1 Capsule by mouth in the morning. 90 Capsule 0 4 Suspended Additional Information Carvedilol 6.25 MG Oral Tablet (Coreg) Take 1 Tablet by mouth in the morning and 1 Tablet before bedtime. 180 Tablet 3 4 10/12/19 24 Discontinued Spironolactone 25 MG Oral Tablet (Aldactone) Take 0.5 Tablets by mouth in the morning. 30 Tablet 5 4 10/12/19 24 Discontinued HYDROcodone-Acetam inophen 10-325 MG Oral TabletIndications: Generalized osteoarthritis,Deg eneration of lumbosacral intervertebral disc Take 1 Tablet by mouth 2 times a day as needed for Pain, Severe. 60 Tablet 0 4 Suspended Additional Information hydrALAZINE HCl 50 MG Oral Tablet (Apresoline)Indica tions:Essential hypertension with goal blood pressure less than 140/90 Take 1 Tablet by mouth in the morning and 1 Tablet at noon and 1 Tablet before bedtime. 270 Tablet 3 4 Suspended Additional Information Isosorbide Mononitrate ER 30 MG Oral Tablet Extended Release 24 Hour (Imdur)Indications :Aortic valve stenosis, etiology of cardiac valve disease unspecified,Mitral valve disease,Coronary artery disease involving [place] coronary artery of [place] heart without angina pectoris,S/P primary angioplasty with coronary stent,Chronic heart failure with preserved ejection fraction (HCC),HTN, goal below 140/90,Dyslipidemi a, goal LDL below 70 Take 1 Tablet by mouth in the morning. 90 Tablet 3 4 10/12/19 24 Discontinued documented as of this encounter (statuses as of 10/12/2023) Active Problems Problem Noted Date Diagnosed Date [...] stenosis 10/01/2013 Coronary artery disease invo lving [place] coronary artery of [place] heart without angina pectoris 05/20/2013 Hyperlipidemia with target LDL less than 70 08/23 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 02/28/2012 GENERAL OSTEOARTHROSIS Pulmonary hypertension Hiatal hernia documented as of this encounter (statuses as of 10/12/2023) Resolved Problems Problem Noted Date Diagnosed Date Resolved Date Hypertensive kidney disease with chronic kidney disease stage III 11/04/2018 06/03/2020 Overview: Per CKD protocol Carpal tunnel syndrome of left wrist 11/11/2015 09/18/2017 Tubular adenoma of colon 04/14/2015 Benign esophageal stricture 03/15/2015 09/18/2017 MEDICATION USE AGREEMENT 08/21/2014 Overview: Signed 08/21/2014 Nazanin May[place] MD [facility] as backup Anemia 10/01/2013 04/08/2015 COPD, mild 03/31/2013 02/25/2015 Kidney disease, chronic, sta ge III (GFR 30-59 ml/min) 03/31/2013 12/04/2018 Inflammation of sacroiliac joint 09/15/2011 01/14/2015 Sacroiliac joint disease 09/15/2011 Vitamin D deficiency 05/24/2011 018 LUMBOSACRAL NEURITIS NOS 03/08/2011 MYALGIA AND MYOSITIS NOS 01/05/201112/2014 OCCIPITAL NEURALGIA 01/05/2011 02/26/20 Lumbago 11/21/2010 01/14/2015 Osteoporosis 05/13/2010 10/18/2012 Cervicalgia [...] #2. Dermatophytosis of nail 12/02/200212/2014 Reflux esophagitis 201 5 Irritable bowel syndrome Precordial pain 01/14/2015 [...] as of this encounter (statuses as of 10/12/2023) Immunizations Name Administration Dates Next Due COVID-19 [...] No 10/11/2023 documented as of this encounter Plan of Treatment Upcoming Encounters Date Type Department Care Team (Late st Contact Info) Description 10/19/2023 10:30 AM EDT Office Visit Cardiology, [facility] 132 [facility] [place] [address] Pricilla Morse CRNP 132 [facility] [place] [address] 12/13/2023 2:30 PM EDT Cardiac Studies Cardiac Studies, [facility] 132 [facility] [place] [address] 12/19/2023 1:30 PM EDT Office Visit Cardiology, [facility] [address] [facility] [place] [address] Shyam Son MD [address] [place] [address] 04/23/2024 3:10 PM EDT Office Visit Family Medicine [address] [place] [phone] [place] [address] Health Maintenance Due Date Last Done Comments [...] Additional history exists CKD PHOS USE SMARTSET 51401 10/10/202409/21, 11/22/2022, 11/18/2021, Additional history exists CKD HGB USE SMARTSET 30533 10/11/202410/11, 10/11/2023, 09/14/2023, Additional history exists O2 [...] this encounter Medical Devices Implanted Type Area Ultrasound Specialist Device Identifier Shelf Expiration Date Model / Serial / Lot Cath Thermodilution 6fr - [id number] Implanted:Qty: 1 on 05/31/2022 by Yoli Rocha MD at [facility] [employer] [id number] 01/30/2024 [id number] / / [id number] Stent Synergy Xd Mr [id number] - [id number] Implanted:Qty: 1 on 07/27/2022 by Yoli Rocha MD at [facility] [employer] 11/08/2023 [id number] / / [id number] Cath Thermodilution 6fr - [id number] Implanted:Qty: 1 on 10/11/2023 by Shyam Son MD at [facility] [employer] [id number] 12/28/2024 [id number] / / [id number] documented as of this encounter Procedures Procedure Name Priority Date/Time Associated Diagnosis Comments ECHO, TTE, LIMITED Routine 10/11/2023 3: 58 PM EDT Valvular heart disease documented in this encounter Results * ECHO, TTE, LIMITED (10/11/2023 3:58 PM EDT) LEFT VENTRICULAR EJECTION FRACTION 60 % [facility] CARDIOLOGY 10/11/2023 3:29 PM EDT Eben Damon DO ECHOCARDIOLOGY [facility] CARDIOLOGY documented in this encounter Advance Directives Latest Code Status on File Code Status Date Activated Date Inactivated Comments Full Code 10/11/2023 3:51 AM This order reflects the patients wishes and [...] Discussed due to patient's condition Care Teams Kitchen Stewardess Relationship Specialty Start Date End Date Jazzy Appiah DO [address] [place] [address] [place] [phone] PCP - General Internal Medicine 03/12/17 documented as of this encounter
--- OUTSIDE RECORDS SUMMARY | 2023-10-19 08:46 | External Medical Summary | Summary of Care ---
Author Name Unknown Organization [facility] Address [address] [place] [address] Phone [phone] Care Team Providers Care Parachute Marker Name Role Phone Camara Durga Crook Primary Care Provider [phone] Reason for Visit * Auth/Cert Specialty Diagnoses / Procedures Referred By Viv t Referred To Contact Diagnoses chest pain Pedro Luis Acharya MD [address] [place] [address] Admissions [facility] [address] [place] [address] Referral ID Status Reason Start Date Expiration Date Visits Re quested Visits Authorized [id number] Encounter Details Date Type Department Care Team (Late st Contact Info) Description 10/11/2023 3:46 AM EDT - 10/12/2023 1:14 PM EDT Hospital Encounter [facility] 8, [facility] Advanced Medicine 8th Floor [address] [place] [address] Pedro Luis Acharya MD [address] [place] [address] Gonzalez Cabrera DO [address] [place] [address] Foreign Tong MD [address] [place] [address] Discharge Disposition: Home - Self Care Allergies Active Allergy Reactions Criticality Noted Date Comments Ramipril Unknown Low 01/08/2014 Gabapentin Edema Other Medium 03/30/2011 Attempted x 3 with resultant fatigue and peripheral edema Oxycodone 06/09/2019 Makes me go crazy documented as of this encounter (statuses as of 10/13/2023) Medications Medication Sig Dispensed Refills Start Date [...] the morning. 180 Tablet 1 2 Active Atorvastatin Calcium 20 MG Oral Tablet (Lipitor)Indicatio ns:Hyperlipidemia with target LDL less than 70 Take 1 Tablet by mouth in the morning. 90 Tablet 1 3 Active Omeprazole 20 MG Oral Capsule Delayed Release (PriLOSEC) Take 1 Capsule by mouth in the morning. 90 Capsule 0 4 Active HYDROcodone-Acetam inophen 10-325 MG Oral TabletIndications: Generalized osteoarthritis,Deg eneration of lumbosacral intervertebral disc Take 1 Tablet by mouth 2 times a day as needed for Pain, Severe. 60 Tablet 0 4 Active hydrALAZINE HCl 50 MG Oral Tablet (Apresoline)Indica tions:Essential hypertension with goal blood pressure less than 140/90 Take 1 Tablet by mouth in the morning and 1 Tablet at noon and 1 Tablet before bedtime. 270 Tablet 3 4 Active amLODIPine Besylate 5 MG Oral Tablet (Norvasc)Indicatio ns:Essential hypertension with goal blood pressure less than 140/90 Take 1.5 Tablets by mouth in the morning. 135 Tablet 1 4 Active Carvedilol 6.25 MG Oral Tablet (Coreg) Take 2 Tablets by mouth in the morning and 2 Tablets before bedtime. 180 Tablet 3 4 Active Torsemide 10 MG Oral Tablet (Demadex)Indicatio ns:Essential hypertension with goal blood pressure less than 140/90 Take 2 (20 mg) tablets by mouth on Sunday, Sunday, and Sunday. Take 1 tablet (10 mg) all other days. (Sunday, , Sunday & Sunday) 120 Tablet 3 4 Active Torsemide 10 MG Oral Tablet (Demadex)Indicatio [...] 90 Tablet 1 3 10/12/19 24 Discontinued Carvedilol 6.25 MG Oral Tablet (Coreg) Take 1 Tablet by mouth in the morning and 1 Tablet before bedtime. 180 Tablet 3 4 10/12/19 24 Discontinued Spironolactone 25 MG Oral Tablet (Aldactone) Take 0.5 Tablets by mouth in the morning. 30 Tablet 5 4 10/12/19 24 Discontinued Isosorbide Mononitrate ER 30 MG Oral Tablet Extended Release 24 Hour (Imdur)Indications :Aortic valve stenosis, etiology of cardiac valve disease unspecified,Mitral valve disease,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,S/P primary angioplasty with coronary stent,Chronic heart failure with preserved ejection fraction (HCC),HTN, goal below 140/90,Dyslipidemi a, goal LDL below 70 Take 1 Tablet by mouth in the morning. 90 Tablet 3 4 10/12/19 24 Discontinued documented as of this encounter (statuses as of 10/13/2023) Active Problems Problem Noted Date Diagnosed Date [...] stenosis 10/01/2013 Coronary artery disease invo lving lytton coronary artery of lytton heart without angina pectoris 05/20/2013 Hyperlipidemia with target LDL less than 70 08/23 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 02/28/2012 GENERAL OSTEOARTHROSIS Pulmonary hypertension Hiatal hernia documented as of this encounter (statuses as of 10/13/2023) Resolved Problems Problem Noted Date Diagnosed Date Resolved Date Hypertensive kidney disease with chronic kidney disease stage III 11/04/2018 06/03/2020 Overview: Per CKD protocol Carpal tunnel syndrome of left wrist 11/11/2015 09/18/2017 Tubular adenoma of colon 04/14/2015 Benign esophageal stricture 03/15/2015 09/18/2017 MEDICATION USE AGREEMENT 08/21/2014 Overview: Signed 08/21/2014 Nazanin Mayfield MD [facility] as backup [...] as of this encounter (statuses as of 10/13/2023) Immunizations Name Administration Dates Next Due COVID-19 [...] Sign Reading Time Taken Comments Blood Pressure 169/46 10/12/2023 10:32 AM EDT Pulse 56 10/12/2023 5:11 AM EDT Temperature 36.9 C (98.4 F) 10/12/2023 10:32 AM E DT Respiratory Rate 18 10/12/2023 10:32 AM EDT Oxygen Saturation 94% 10/12/2023 10:32 AM EDT Inhaled Oxygen Concentration - - Weight 62 kg (136 lb 11 oz) 10/12/2023 5:20 AM E DT Height 157.5 cm (5' 2") 10/11/2023 3:54 AM EDT Body Mass Index 25 10/11/2023 3:54 AM EDT documented in this encounter Functional Status Functional [...] No 10/11/2023 documented as of this encounter Discharge Summaries * Foreign Tong MD - 10/12/2023 11:06 AM EDT [address] [address] Admission Date: 10/11/2023 Discharge Date: 10/12/2023 DISCHARGE DIAGNOSES: Active Hospital Problems Diagnosis *Principal Diagnosis - Pulmonary hypertension Precordial pain S/P primary angioplasty with coronary stent Chronic diastolic heart failure (HCC) Chronic kidney disease, stage 3b (HCC) Hypertensive kidney disease with stage 3b chronic kidney disease COPD with emphysema (HCC) Carotid stenosis, non-symptomatic, bilateral Essential hypertension with goal blood pressure less than 140/90 Lumbar degenerative disc disease Gastroesophageal reflux disease without esophagitis Iron deficiency anemia PAD (peripheral artery disease) (HCC) Aortic valve stenosis 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 Hyperlipidemia with target LDL less than 70 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 Resolved Hospital Problems No resolved problems to display. Attending Provider: Foreign Tong MD CONDITION ON DISCHARGE: stable DISPOSITION ON DISCHARGE: home FOLLOW-UP: F/U BMP for hyponatremia Future Appointments Appt Date/Time Provider Department 10/19/2023 10:30 AM Pricilla Morse CRNP Cardiology, [facility] 12/13/2023 2:30 PM STRATEGY INTERN 2 GW Cardiac Studies, [facility] 12/19/2023 1:30 PM Shyam Son MD Cardiology, [facility] 04/23/2024 3:10 PM Durga Camara DO [facility] Medicine [facility] Appointments: follow up with Dr. Camara within one week; Cardiology on 10/19/23 Outpatient testing already scheduled: BMP Outpatient testing that needs to be arranged: none Inpatient test results pending: none MEDICATIONS ON DISCHARGE: MEDICATION UPDATES AT DISCHARGE CHANGE how you take these medications INSTRUCTIONS amLODIPine 5 MG Tablet Commonly known as: Norvasc What changed: how much to take Take 1.5 Tablets by mouth in the morning. Carvedilol 6.25 MG Tablet Commonly known as: Coreg What changed: how much to take Take 2 Tablets by mouth in the morning and 2 Tablets before bedtime. CONTINUE taking these medications INSTRUCTIONS Acetaminophen ER 650 MG Tbcr Commonly known as: Tylenol ER Take 1 Tablet by mouth every 8 hours as needed. Aspirin 81 MG Tablet Take 1 Tablet by mouth in the morning. atorvaSTATin 20 MG Tablet Commonly known as: Lipitor Take 1 Tablet by mouth in the morning. B-12 1000 MCG Capsule Take 1 Capsule by mouth in the morning. Cranberry Plus Vitamin C 140-100-3 MG-MG-UNIT Caps Generic drug: Cranberry-Vitamin C-Vitamin E four tablets by mouth daily hydrALAZINE 50 MG Tablet Commonly known as: Apresoline Take 1 Tablet by mouth in the morning and 1 Tablet at noon and 1 Tablet before bedtime. HYDROcodone-acetaminophen 10-325 mg per tab Take 1 Tablet by mouth 2 times a day as needed for Pain, Severe. losartan 50 MG Tablet Commonly known as: Cozaar Take 1 Tablet (50 mg) by mouth in the morning. Nitroglycerin 0.3 MG SL tablet Commonly known as: Nitrostat Place 1 Tablet under the tongue every 5 minutes as needed for Pain, Chest. up to 3 doses in 15 minutes. omeprazole 20 MG Cpdr Commonly known as: PriLOSEC Take 1 Capsule by mouth in the morning. Stool Softener 100 MG Tablet Generic drug: Docusate Sodium 1-2 tabs twice daily for constipation Torsemide 10 MG Tablet Commonly known as: Demadex 20 mg MWF, 10 mg all other days Vitamin B6 50 MG Tabs Take by mouth . Unsure dosage Vitamin C 1000 MG Tablet Take 0.5 Tablets by mouth in the morning. Vitamin D 25 MCG (1000 UT) Tabs Take 1 Tablet by mouth in the morning. Vitamin E 450 MG Caps Take by mouth 1 Capsule daily . 675 ug STOP taking these medications isosorbide mononitrate SA 30 MG Tb24 Commonly known as: Imdur Spironolactone 25 MG Tablet Commonly known as: Aldactone ALLERGIES: Neurontin [gabapentin], Oxycodone, and Altace [ramipril] INSTRUCTIONS: Activity: no strenuous activity for 5 days Diet: heart healthy diet Code Status: Full Code [facility] patient: no ADMISSION HISTORY & PHYSICAL EXAM (focused): PMHx: HTN DLD CAD s/p stent L main 08/14 Severe Chronic HFpEF (LVEF 55-59% w/o WMA) Severe PAH (68 mmHg) CKD stage 4 Esophageal strictures GERD CBP SUMMARY: Georgina Javed is a 78 year old female presenting as transfer from [facility] where she was evaluated for chest pain, shortness of breath, myalgias, generalized weakness, anorexia. Per chart review: she was seen at outpatient cardiology clinic on 09/14/2023 for chest discomfort and shortness of breath. She was encouraged to increase her torsemide but declined and was started on spironolactone instead. On follow up on 09/28/2023 she continued to feel poorly. She did note improvementin her breathing with the addition of spironolactone. At this time she noted decreased p.o. intake and loss of 11 lb. She attributes the decreased p.o. intake to difficulty swallowing as she has esophageal strictures requiring previous dilations. She was placed on Imdur 30 mg daily for her chest pain however she self discontinued this medication on 10/01/2023 because she thought it was causing a sore throat, headache, nausea, vomiting, diarrhea. Per patient: She has been having intermittent chest pain and sob on exertion for the last 6-7 years, however, the pain can present at rest too. Prior Therapeutic Recreation Assistant have told her that the pain is likely related to her . She puts Terrance's vaper rub on her chest at home which helps to ease the pain. Thepain and sob has not worsened over this time. She denies any recent illness or sick contacts. She has difficulty laying flat because of the bony deformities in her spine causing her pain. She is not allergic to contrast. She has needed femoral access for her previous caths. In the ED at [facility] she was noted to be aren to 53 bpm. EKG at this time showed no acute STsegment changes. Troponin was elevated to 110 but had downtrended to 61. She was also noted to be hyponatremic and hypotensive at this time. They held her diuretics and started her on fluid resuscitation. Sodium was noted to improve. On 10/08 she started having atypical chest pain, heparin gtt was started and she was transferred over to [facility] for further evaluation with cardiac cath? It is unclear what the reason for transfer is at this time. Constitutional: Appearance: Not in distress. Cachectic and frail. Chronically ill-appearing. Neck: Vascular: No JVR. JVD normal. Pulmonary: Effort: Pulmonary effort is normal. Breath sounds: Normal breath sounds. No wheezing. No rhonchi. No rales. Chest: Chest wall: Not tender to palpatation. Cardiovascular: PMI at left midclavicular line. Normal rate. Regular rhythm. Normal S1. Normal S2. Murmurs: There is a harsh midsystolic murmur at the URSB, radiating to the neck. No rub. Pulses: Intact distal pulses. Edema: Peripheral edema absent. Abdominal: General: Bowel sounds are normal. Palpations: Abdomen is soft. Tenderness: There is no abdominal tenderness. Musculoskeletal: General: No tenderness. Cervical back: Decreased range of motion. Thoracic back: Scoliosis present. Skin: General: Skin is warm and dry. Neurological: General: No focal deficit present. Mental Status: Alert and oriented to person, place and time. HOSPITAL COURSE (focused): Georgina Javed was transferred from [facility] due to concern of worsening aortic stenosis and/or ACS as she was experiencing increased dyspnea and intermittent episodes of chest pain. She underwent left and right heart catheterization that showed mild coronary disease, moderate aortic stenosis and severely elevated right heart pressures indicative of worsening pulmonary hypertension. There was no intervention that could be made. As the pulmonary hypertension is secondary to heart dysfunction, she has been medically optimized for heart failure. Georgina was found to be hyponatremic on presentation and was fluid restricted however remained hyponatremic. This will need to be followed up at hernext visit. She has remained hemodynamically stable with well controlled blood pressures and heart rate bradycardic in the 50's but stable. BP 169/46 | Pulse 56 | Temp 36.9 C (98.4 F) (Tympanic) | Resp 18 | Ht 1.575 m (5' 2") | Wt 62 kg (136 lb 11 oz) | SpO2 94% | BMI 25.00 kg/m | BSA 1.65 m General: NAD Head/Neck: Atraumatic and normocephalic. Eyes: Vision grossly intact. EOM grossly intact. ENT: Hearing grossly intact.Oral mucosa moist. Cardio: Regular rate and rhythm. Systolic murmur. No appreciable JVD. No lower extremity edema. Pulmonary: No visible signs of respiratory distress or accessory muscle usage. Lung gonzalez clear toausculation throughout. No appreciable rales, rhonchi, or wheezes. Abdomen: Soft and non-tender to palpation. No rebound, rigidity, or guarding appreciated. Bowel sounds present in all four quadrants. MSK: Scoliosis Skin: Warm, dry, and intact. No obvious rashes or lesions. Neuropsych: Appropriate mood and mentation. Operations & Procedures: cardiac catheterization [place] Interpretation (focused): LMCA stent is patent Mild mid LAD disease Mild proximal LCx disease Mild to moderate diffuse RCA disease Valve study: [id number] Gradient: 24mmHg Mean Gradient: 36mmHg Right Heart Catheterization Measurements (reference measures in parenthesis) RA = 6 mmHg [0-8 mmHg] RV = 81/7 mmHg [20-30/0-8 mmHg] Unable to traverse into the pulmonary artery, could not obtain the remainder of RHC pressures SELECTED RESULTS: Last recorded weight: Weight: 62 kg (136 lb 11 oz) (10/12/23 0520) Laboratory: Na: 127 Complications: none CONSULTS ORDERED: ADULT PHYSICAL THERAPY CONSULT IP ADULT OCCUPATIONAL THERAPY CONSULT IP REFERRING PHYSICIAN: Ref: ERIKA MARTINEZ[[id number]] [address] [place], [place] [address] Services [place] [address] (office) [phone] (fax) PRIMARY CARE PROVIDER: PCP: Durga Camara [address] / [place] [address] (office) [phone] (fax) I saw and evaluated the patient today. I have reviewed the trainee note and agree. Note: To contact a physician responsible for this patients hospital care, please call [email or web address] [phone]. documented in this encounter Discharge Instructions * Discharge Instr - AVS* Sarah Basilio MD - 10/12/2023 8:36 AM EDT Discharge Date: 10/12/2023 The information below provides you with the instructions and the list of medications you need to betaking following discharge from the hospital. If you have any questions, please ask before leaving.Please carry this letter with you when you see your doctor in the clinic. If you have questions, you can reach us at the numbers above. YOUR HOSPITAL PROVIDERS: Discharging Physician: Foreign Tong MD Fellow Physician: Dr. Moose Gutierrez Resident Physician: Channing Graf MD Department: Cardiology IF YOU HAVE QUESTIONS: You may call the Department of Cardiology at [phone] M-X during business hours for any questions or test results. For after-hours emergencies call [phone] and have your doctor paged. Scheduling services is available between the hours of 8:00 am and 9:00 pm by calling . For routine questions, your [facility] Cardiology Team prefers the use of payleven. payleven is an online internet tool to help you meet your health care needs quickly by providing a secure, confidential way to view your health records and communicate with your [facility] Cardiology Team. To sign up for payleven go to [email or web address], "Click" [place] Now on the right side of the screen and complete the user registration information. A BRIEF SUMMARY OF YOUR HOSPITAL STAY: You were transferred to [facility] from [facility] due to concerns of obstruction in your heart andalso worsening of one of your heart valves. A procedure was done where the heart specialists put a catheter to assess if there were any obstructions in the arteries going to your heart and also assess the severity of the tightness of your aortic valve. There was mild obstructions in several arteries and also moderate tightness of your valve however no intervention was indicated. They also found that one of the arteries going from your lung to your heart was severely elevated. This is due to theexisting heart dysfunction that you have and you will be medically managed for it. It is important that you take all of your medications as prescribed. Your main diagnosis at discharge was: Moderate Aortic Stenosis and Pulmonary hypertension Operations & Procedures performed: Left and right heart catheterization Complications: None Inpatient test results that are pending at discharge: None YOUR FOLLOW UP APPOINTMENTS: Primary Care Provider Information: PCP: DURGA CAMARA CROOK [address] [place] [place] [address] [place] [address] An appointment was requested with your PCP for within 1 week of discharge from the hospital. (Please take this form to this visit with your primary care physician.) Cardiology follow-up: 10/19/23 You need the following studies in the future: BMP INSTRUCTIONS: Diet: Heart healthy diet Activity: no strenuous activity for 5 days Driving: N/A Date you may return to work or school: N/A Special Instructions: - Aspirin - You need to take aspirin even though you are on Plavix. The preferred dose of aspirin is 81 mg per day (one baby aspirin). Use the non- coated kind. You should continue to take aspirin forever unless specifically told to stop.. - Statin Drugs (cholesterol pill) slow the growth of heart artery blockages. Your statin drug is Lipitor 20 mg. - Nitroglycerin (nitro): Your should carry nitro at all times. When chest pain occurs take one nitro under tongue and call 911. You may take additional nitro every five minutes as needed for ongoing chest pain up to three pills. Lie down after using nitro. Do not drive after using nitro. Patients with chronic stable chest pain who frequently use nitro may not need to call 911. Ask your physician about this.. - Beta blockers are important for some cardiac patients and after a heart attack. Your beta blockeris Carvedilol - Do not use Motrin/Ibuprofen/Advil and other types of "NSAIDs" (nonsteroidal anti-inflammatory drugs) - "NSAIDs" make aspirin ineffective, can raise blood pressure, and can damage your kidneys. Try Tylenol for pain. Consult your pharmacist for questions about "NSAIDs".. Radial Artery Catheterization Instructions for Post Care Activity: Do not use the arm we used for your procedure today. Do not lift more than 10 lbs for 3 days with arm used for procedure. A responsible adult must be with the patient for 24 hours after your procedure. Rest today but you may resume your usual activity tomorrow. Do not drive, operate any appliances and/or machinery or sign legal documents for 24 hours due to the anesthesia. You may return to work in 24 hours. You may wash the wrist with soap and water and you may shower. Do not soak the wrist in water without a waterproof bandage until the small incision is healed. If you notice bleeding, increased swelling, tingling in the fingers or pain in your forearm that is not relieved by Tylenol, please seek medical attention. If you develop a fever over 101 degrees F you should contact your harmonic analyst. It is normal to have a small amount of discomfort for up to one week following your procedure but this should continue to improve with time, not worsen. If you have any questions or are concerned with how your arm is healing, call the doctor who did your procedure at . Keep the puncture site covered with a dry bandage for 24 hours, then remove the bandage. You shouldreplace it every 24 hours or if it gets wet. This should be done until the puncture site has completely healed. Cardiovascular RISK FACTOR control YOUR RISK FACTOR TREATMENT GOALS: Controlling the factors that cause arteries to form blockages will reduce your chance of having new blockages. Work with your health care providers to control your risk factors. If you have trouble reaching these goals then ask your health care provider to work with you further until they are controlled. Diabetes - In diabetics, hemoglobin A1C is a measure of the average blood sugar over the past 3 months. The goal is less than 7.0. Your result is: 5.5%. Hypertension - Goal is less than 120/80. High cholesterol LDL cholesterol (bad cholesterol) - goal is less than 70 mg/dl. HDL cholesterol (good cholesterol) - goal is greater than 40 mg/dl in men and 50 mg/dl in women. Triglycerides (other blood fats that are especially elevated in diabetics and pre-diabetics) - goalis less than 150 mg/dl. Your Lipid Panel Results are: Results for orders placed or performed during the hospital encounter of 10/11/23 LIPID PANEL WITHOUT DIRECT LDL Result Value Ref Range Triglycerides 64 <=174 mg/dL Cholesterol 125 <200 mg/dL HDL Cholesterol 73 >49 mg/dL Non-HDL Cholesterol 52 <=159 mg/dL LDL Cholesterol 39 <=129 mg/dL Results for orders placed or performed in visit on 09/14/23 LIPID PANEL WITH DIRECT LDL IF TG IS HIGH Result Value Ref Range Triglycerides 101 <=174 mg/dL Cholesterol 133 <200 mg/dL HDL Cholesterol 49 (L) >49 mg/dL Non-HDL Cholesterol 84 <=159 mg/dL LDL Cholesterol 64 <=129 mg/dL Tobacco - Tobacco is poison to your arteries. It will cause blockages. Continuing to smoke tobacco may lead to heart attacks, strokes, or leg amputation. You should avoid tobacco. Your goal is to notsmoke at all. Talk with your primary care provider about counseling and medications to help you stop smoking. Exercise - The [employer] [employer] recommends walking 30 minutes a day most days of the week; if you have to lose weight you should walk 60-90 minutes a day. Remember that if you develop chestpain, you should stop what you are doing. Do not continue to exercise if you have chest pain. See your special activity instructions above. [place] weight - Your BMI (a measure of ideal body weight) is Body mass index is 33.52 kg/m.. Your BMI should be less than 25. Your waist size also predicts risk of heart attack: a woman's waist should be less than 35 inches and a man's waist less than 40. Maintaining your ideal body weight will help your heart, reduce blood pressure, blood sugar, and cholesterol, improve or help prevent diabetes, and improve or help prevent congestive heart failure. MEDICATION CHANGES CHANGED MED: 1. Carvedilol (this is a anti-hypertensive and heart protective medication) - Increased to 12.5 mg twice a day 2. Torsemide (this is a water pill) you took 20 mg EACH DAY when you were here, you should resume your home schedule and follow up with your home Therapeutic Recreation Assistant 3. Amlodipine (this is an anti-hypertensive and anti chest pain medicaiton) -Take 7.5 mg every morning STOP TAKING THE FOLLOWING MEDICINES: 1. Hydralazine (this is an anti-hypertensive) 2. Spirinolactone (this is a diuretic) - It was discontinued because it can decrease your sodium level which is a little low 3. Imdur (this is a chest pain reducing medication) -it was discontinued due to side effects CONTINUE TAKING ALL OTHER MEDICINES PRESCRIBED * Care Mgmt Instr - AVS* Ragini Paul RN - 10/12/2023 1:14 PM EDT No care hat steamer to display If you have Home Care Services, you should have a visit within 48 hours. documented in this encounter Progress Notes * Channing Graf MD - 10/11/2023 6:08 AM EDT Images from the original note were not included. PROGRESS NOTE - Cardiology [facility] [place]-[address] [id number] Name: Georgina Javed Location: CATH/Cath Date: 10/11/2023 Time: 12:11 PM Date of admission: 10/11/2023 Hospital length of stay: 0 days 78 year old female with a PMH significant for CAD s/p stent in LMCA, , HFpEF (55-59%), severe PAHand CKD4 presenting due to chest pain and dyspnea with suspicion of worsening . Subjective Overnight Events: Admitted overnight Subjective: Patient seen and examined at bedside. Patient reports that over the past month she has been experiencing intermittent shortness of breath and chest pain. The chest pain typically lasts around 20 minutes however it is minor and rated as a 2-3/10. The dyspnea occurs on minimal exertion and occasionally occurs at rest as well. On today's exam, she denies shortness of breath, chest pain, abdominal pain, dizziness, lightheadedness or nausea. All systems were reviewed, all pertinent findings were documented above, otherwise negative. Objective CONSTITUTIONAL DATA / OBJECTIVE: Vital Signs (Most Recent): Blood Pressure: 155/59 mmHg Last 12H: Most Recent Systolic BP Av.5 mmHg Min: 155 mmHg Max: 182 mmHg Pulse: 60 Last 12H: Pulse Av Min: 60 Max: 70 Temperature: 36.7 C (98 F) Last 12H: Most Recent Temperature Av.67 C Min: 36.67 C Max: 36.67 C Respiratory Rate: 16 O2 Saturation: 94 % Vital Signs (Last 24 Hours): Pulse Av Min: 60 Max: 70 No data recorded Most Recent Systolic BP Av.5 mmHg Min: 155 mmHg Max: 182 mmHg Most Recent Diastolic BP Av.5 mmHg Min: 50 mmHg Max: 59 mmHg Resp Av Min: 16 Max: 16 Most Recent Temperature Av.67 C Min: 36.67 C Max: 36.67 C SpO2 Av % Min: 92 % Max: 94 % Intake & Output Summary (Last 24 hours): Intake/Output Summary (Last 24 hours) at 10/11/2023 1211 Last data filed at 10/11/2023 0758 Gross per 24 hour Intake 38.15 ml Output 200 ml Net -161.85 ml Net IO Since Admission: -191.85 mL [10/11/23 0608] Height & Weight: Height: 157.5 cm (5' 2") (10/11/23353) Weight: 61.6 kg (135 lb 12.8 oz) (10/11/23353) Weight change: Body mass index is 24.84 kg/m. Telemetry: Reviewed Physical Examination: General: Patient in no apparent distress HEENT: normocephalic, atraumatic Heart: regular rate and rhythm; systolic murmur Pulmonary: Lungs clear to auscultation bilaterally; no wheezes, rhonchi or crackles. Abdomen: Soft, non-tender, non-distended. Normal bowel sounds and no rebound or guarding. MSK: Patient able to ambulate; Gross motor function intact Extremities: No pitting edema present at lower extremity bilaterally Skin: [place], warm, no wounds or lesions present. Neuro: AAOx3. No gross motor or sensory deficits. Psych: Appropriate mood and affect Peripheral Line Left;Lower 18 Gauge (Active) Number of days: 1 Peripheral Line Left;Lower Arm 20 Gauge (Active) Number of days: 1 Laboratory Values: reviewed. -- Brief labs below include the 7 most recent results over the past week. No results in the last 7 days - inpatent use only Lab results within last 7 days (see chart for full results) Units 10/11/23 0411 Sodium mmol/L 127* Potassium mmol/L 4.6 Chloride mmol/L 91* CO2 mmol/L 25 BUN mg/dL 81* Creatinine mg/dL 1.8* Estimated Glomerular Filtration Rate mL/min 29* Glucose mg/dL 106 Calcium mg/dL 9.7 Magnesium mg/dL 1.7 Phosphorus mg/dL 3.5 Anion Gap mmol/L 11 Lab results within last 7 days (see chart for full results) Units 10/11/23 0410 WBC K/uL 5.49 HGB g/dL 10.7* HCT % 32.2* PLT K/uL 201 MCV fL 90.7 No results in the last 7 days - inpatent use only Lab results within last 7 days (see chart for full results) Units 10/11/23 0410 Prothrombin Time seconds 14.0 INR 1.1 aPTT seconds 58* Heparin, Unfractionated IU/mL 0.22* Lab results within last 7 days (see chart for full results) Units 10/11/23 0411 Triglycerides mg/dL 64 No results in the last 7 days - inpatent use only Cultures: reviewed. No results in the last 7 days - inpatent use only Recent Cultures (2 Weeks) 11/22/2022 05/23/2022 03/29/2022 05/13/2021 04/22/2018 03/22/2018 12/27/2017 06/16/2016 4:03 PM 9:42 AM 12:16 PM 11:54 AM 11:34 AM 1:47 PM 3:23 PM 11:54 AM SPECIMEN DESCRIPTION -- -- -- -- CLEAN CATCH URINE CLEAN CATCH URINE CLEAN CATCH URINE CLEAN CATCH URINE CULTURE -- -- -- -- 10,000 TO 100,000 COLONIES/ML ESCHERICHIA COLI 10,000 TO 100,000 COLONIES/ML ESCHERICHIA COLI MULTIPLE FLORENCE SUGGESTS CONTAMINATION OR COLONIZATION >100,000 COLONIES/ML ESCHERICHIA COLI LESS THAN 10,000 COLONIES/ML MIXED NORMAL FLORENCE LESS THAN 10,000 COLONIES/ML MIXED NORMAL FLORENCE 10,000 TO 100,000 COLONIES/ML STREPTOCOCCUS VIRIDANS GROUP LESS THAN 10,000 COLONIES/ML MIXED FLORENCE QUANT URINE CULTURE GROWTH 10,000 to 100,000 colonies/mL Raoultella planticola >100,000 colonies/mL Escherichia coli >100,000 colonies/mL Klebsiella oxytoca No significant growth -- -- -- -- Radiographic Studies: reviewed. No imaging results in the last 72 hours Cardiac Studies: Cardiac cath 07/27/22: Ostial to proximal LMCA has 70% stenosis s/p successful IVUS guided PCI with LU TTE 09/25/23: The LV wall thickness is mildly increased [...] artery systolic pressure is 68 mm Hg. Current Facility-Administered Medications: Acetaminophen (Tylenol) tab 975 mg, 975 mg, Oral, Q6H PRN OR oxyCODONE (Oxy IR) tab 5 mg, 5 mg,Oral, Q6H PRN, Eben Damon DO, 5 mg at 10/11/23 0542 atorvaSTATin (Lipitor) tab 20 mg, 20 mg, Oral, Daily(AM), Eben Damon DO, 20 mg at 10/11/23 0812 Carvedilol (Coreg) tab 12.5 mg, 12.5 mg, Oral, BID (AM/PM meals), Eben Damon DO, 12.5 mg at10/11/23 0811 fentaNYL (PF) inj 25 mcg, 25 mcg, IV Push, PRN, Shyam Son MD, 25 mcg at 10/11/23 1142 hEParin 1000 UNIT/ML inj 1,800 Units, 30 Units/kg, IV Push, PRN, Eben Damon DO hEParin 1000 UNIT/ML inj 900 Units, 15 Units/kg, IV Push, PRN, Eben Damon DO hEParin 25,000 units in 250 mL (Xa-Cardiac) infusion, 0-30 Units/kg/hr, Intravenous, Titrate, Eben Damon DO, Last Rate: 7.18 mL/hr at 10/11/23 0729, 12 Units/kg/hr at 10/11/23 0729 hEParin inj 5,000 Units, 5,000 Units, IV Push, PRN, Shyam Son MD midazolam (Versed) 2 MG/2ML inj 0.5 mg, 0.5 mg, IV Push, PRN, Shyam Son MD, 0.5 mg at 10/11/23 1142 nitroglycerin (100 mcg/mL) inj 100 mcg, 100 mcg, Intracoronary, PRN, Shyam Son MD omeprazole (PriLOSEC) cap 20 mg, 20 mg, Oral, Daily(AM), Eben Damon, , 20 mg at 10/11/23 0812 Assessment & Plan Assessment and Plan: Active Problems: 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 (POA: Yes) Hyperlipidemia with target LDL less than 70 (POA: Yes) 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 (POA: Yes) Aortic valve stenosis (POA: Yes) PAD (peripheral artery disease) (HCC) (POA: Yes) Iron deficiency anemia (POA: Yes) Lumbar degenerative disc disease (POA: Yes) Gastroesophageal reflux disease without esophagitis (POA: Yes) Essential hypertension with goal blood pressure less than 140/90 (POA: Yes) Carotid stenosis, non-symptomatic, bilateral (POA: Yes) COPD with emphysema (HCC) (POA: Yes) Hypertensive kidney disease with stage 3b chronic kidney disease (POA: Yes) Chronic kidney disease, stage 3b (HCC) (POA: Yes) Chronic diastolic heart failure (HCC) (POA: Yes) S/P primary angioplasty with coronary stent (POA: Yes) Precordial pain (POA: Unknown) Resolved Problems: * No resolved hospital problems. * POA = Present On Admission 78 year old female with a PMH significant for CAD s/p stent in LMCA, , HFpEF (55-59%), severe PAHand CKD4 presenting due to chest pain and dyspnea with suspicion of worsening . Symptomatic CAD s/p LU to LMCA Pulmonary hypertension -pt experiencing worsening dyspnea on minimal exertion and occasionally occurring at rest; also experiencing intermittent chest pain with mildly elevated troponin's at [facility] with max of 110 that decreased to 60 that was concerning for ACS in the setting of existing CAD s/p LU to LMCA last year -TTE done on 09/25/23 showing a LVEF of 55-59% with normal RV systolic function and enlarged LA; discordance on doppler making it difficult to assess severity of aortic stenosis -pt not currently on any medications for PAH; most recent PFT's done in 2008 that showed normal spirometry; will likely need PFT's checked again Plan for left and right cardiac catheterization today to further evaluate CTA TAVR gated study to assess for aortic valve calcifications and severity LANEY deferred at this time as patient has esophageal strictures with dysphagia Continue Atorvastatin 20 mg daily Hypertension -BP elevated on initial presentation however decreased on recheck -will continue to hold BOILER COVERER HELPER anti-hypertensives as she may be pressure dependent depending on severity of ; pressures on coronary flow on aortic pressure in LVH, and the need to preserve LV preload to fill the hypertrophied LV and maintain cardiac output BOILER COVERER HELPER Coreg increased to 12.5 BID Holding BOILER COVERER HELPER Losartan 50 mg, Spironolactone 12.5 mg, Amlodipine 5 mg and Torsemide 10 mg until imaging is evaluated Hyponatremia -pt acutely found to be hyponatremic that is likely secondary to SIADH -received fluids while at [facility] Hold off on fluids for now and monitor BMP Chronic Problems: GERD: Continue BOILER COVERER HELPER omeprazole 20 mg Misc: Diet: Heart Healthy Bowel Regimen: None at this time Sleep: No sleep protocol ordered Cuevas: Not indicated at this time PT/OT: Not indicated at this time GI prophylaxis: Not indicated at this time VTE Prophylaxis: heparin Code Status: FULL Anticipated Discharge: LINES / DRAINS / TUBES: LINES ALL Duration Peripheral Line Left;Lower 18 Gauge <1 day Peripheral Line Left;Lower Arm 20 Gauge <1 day List of services consulted/following: ADULT PHYSICAL THERAPY CONSULT IP ADULT OCCUPATIONAL THERAPY CONSULT IP Patient was discussed with attending physician, Gonzalez Cabrera, This chart was completed in part utilizing [employer] Speech Voice Recognition Software. Grammatical errors, random word insertions, pronoun errors, and incomplete sentences are an occasional consequence of this system due to software limitations, ambient noise, and hardware issues. Any formal questions or concerns about the content, text, or information contained within the body of this dictation should be directly addressed to the provider for clarification. Associated attestation - DeborahGonzalez DO Ulises - 10/11/2023 3:52 PM EDT I saw and evaluated the patient today. I have reviewed the trainee note and agree. documented in this encounter H&P Notes * Eben Damon DO - 10/11/2023 3:46 AM EDT Images from the original note were not included. [facility] H856/A PROGRESS NOTE - INTERNAL Medicine [address] [address] Name: Georgina Javed Location: [facility] [place] H856/A Date: 10/11/2023 Time: 5:33 AM PMHx: HTN DLD CAD s/p stent L main 08/14 Severe Chronic HFpEF (LVEF 55-59% w/o WMA) Severe PAH (68 mmHg) CKD stage 4 Esophageal strictures GERD CBP SUMMARY: Georgina Javed is a 78 year old female presenting as transfer from [facility] where she was evaluated for chest pain, shortness of breath, myalgias, generalized weakness, anorexia. Per chart review: she was seen at outpatient cardiology clinic on 09/14/2023 for chest discomfort and shortness of breath. She was encouraged to increase her torsemide but declined and was started on spironolactone instead. On follow up on 09/28/2023 she continued to feel poorly. She did note improvementin her breathing with the addition of spironolactone. At this time she noted decreased p.o. intake and loss of 11 lb. She attributes the decreased p.o. intake to difficulty swallowing as she has esophageal strictures requiring previous dilations. She was placed on Imdur 30 mg daily for her chest pain however she self discontinued this medication on 10/01/2023 because she thought it was causing a sore throat, headache, nausea, vomiting, diarrhea. Per patient: She has been having intermittent chest pain and sob on exertion for the last 6-7 years, however, the pain can present at rest too. Prior Therapeutic Recreation Assistant have told her that the pain is likely related to her . She puts Terrance's vaper rub on her chest at home which helps to ease the pain. Thepain and sob has not worsened over this time. She denies any recent illness or sick contacts. She has difficulty laying flat because of the bony deformities in her spine causing her pain. She is not allergic to contrast. She has needed femoral access for her previous caths. In the ED at [facility] she was noted to be aren to 53 bpm. EKG at this time showed no acute STsegment changes. Troponin was elevated to 110 but had downtrended to 61. She was also noted to be hyponatremic and hypotensive at this time. They held her diuretics and started her on fluid resuscitation. Sodium was noted to improve. On 10/08 she started having atypical chest pain, heparin gtt was started and she was transferred over to [facility] [place] for further evaluation with cardiac cath? It is unclear what the reason for transfer is at this time. Recent Cardiac studies: Cardiac cath 07/27/22: Ostial to proximal LMCA has 70% stenosis s/p successful IVUS guided PCI with LU TTE 09/25/23: The LV wall thickness is mildly increased [...] artery systolic pressure is 68 mm Hg. Objective Physical Exam Most Recent Vital Signs: Blood Pressure: 182/50 mmHg Last 12H: Most Recent Systolic BP Av mmHg Min: 182 mmHg Max: 182 mmHg Pulse: 70 Last 12H: Pulse Av Min: 70 Max: 70 Temperature: 36.7 C (98 F) Last 12H: Most Recent Temperature Av.67 C Min: 36.67 C Max: 36.67 C Respiratory Rate: 16 O2 Saturation: 92 % No intake or output data in the 24 hours ending 10/11/23 0533 Net IO: No IO data has been entered for this period [10/11/23 0346] Wt Readings from Last 3 Encounters: 10/11/23 61.6 kg (135 lb 12.8 oz) 09/19/23 59.8 kg (131 lb 14.4 oz) 09/14/23 65.8 kg (145 lb) PHYSICAL EXAM Constitutional: Appearance: Not in distress. Cachectic and frail. Chronically ill-appearing. Neck: Vascular: No JVR. JVD normal. Pulmonary: Effort: Pulmonary effort is normal. Breath sounds: Normal breath sounds. No wheezing. No rhonchi. No rales. Chest: Chest wall: Not tender to palpatation. Cardiovascular: PMI at left midclavicular line. Normal rate. Regular rhythm. Normal S1. Normal S2. Murmurs: There is a harsh midsystolic murmur at the URSB, radiating to the neck. No rub. Pulses: Intact distal pulses. Edema: Peripheral edema absent. Abdominal: General: Bowel sounds are normal. Palpations: Abdomen is soft. Tenderness: There is no abdominal tenderness. Musculoskeletal: General: No tenderness. Cervical back: Decreased range of motion. Thoracic back: Scoliosis present. Skin: General: Skin is warm and dry. Neurological: General: No focal deficit present. Mental Status: Alert and oriented to person, place and time. LABORATORY VALUES: reviewed. IMAGING: reviewed. Assessment and Plan IMPRESSION : Principal Problem: Severe aortic stenosis by prior echocardiogram Active Problems: Hyperlipidemia with target LDL less than 70 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 PAD (peripheral artery disease) (HCC) Lumbar degenerative disc disease Gastroesophageal reflux disease without esophagitis Essential hypertension with goal blood pressure less than 140/90 Resolved Problems: * No resolved hospital problems. * DIFFERENTIAL AND PLAN: Georgina is an 78-year-old female with a past medical history significant for severe aortic stenosis, pulmonary artery hypertension, CAD s/p LU to [facility] a 08/14, CKD stage IIIB/4 who is presenting as a transfer from [facility] for further evaluation and TAVR workup. Hypertensive on arrival to systolics of 180 but asymptomatic. Severe aortic stenosis CAD s/p LU to LMCA Hypertension Patient was presenting as transfer from [facility] for presumed TAVR evaluation. Patient states she has been dealing with severe aortic stenosis for quite some time in gets intermittent chest pain and shortness of breath due to it. Unclear if there was concern for unstable angina at OSH as patient presented to us with a heparin gtt. Appears to be euvolemic. She denies any symptoms at this time.She states difficulty with lying flat due to bony prominences in her back. Has tolerated IV contrast in the past without any problems. States that prior cardiac catheterizations have required femoralaccess. NPO for R/L cardiac catheterization Limited TTE to assess aortic velocities Increased BOILER COVERER HELPER Coreg to 12.5 twice daily for hypertension Can consider IV hydralazine as needed for better control Continue BOILER COVERER HELPER atorvastatin 20 mg Hold BOILER COVERER HELPER losartan, hydralazine, spironolactone, torsemide, amlodipine Chronic back pain She was chronic back pain for which she takes Percocet (10-325) at home. Acetaminophen q.6 H PRN for mild/moderate pain Oxycodone 5 mg q.6 H PRN for severe pain Hyponatremia at OSH [facility] Nephrology concern for component of SIADH. Sodium has improved with IV fluid resuscitation and IV furosemide. Sodium on admission was 127. Continue to monitor BMPs CHRONIC PROBLEMS: GERD: Continue BOILER COVERER HELPER omeprazole 20 mg Esophageal strictures: Likely has active esophageal strictures given recent decreased p.o. intake. Patient does not know if she wants to undergo further dilation at this time. Keep this in mind in case LANEY is warranted. GLOBAL ISSUES -Diet: NPO -Stress Ulcer ppx: None -Sleep: None -Cuevas: None -Rehab: PT/OT--recs: pending -VTE ppx: Heparin gtt -Code Status: Code Status: Full Code -Disposition: Med-Surg EXPECTED DISCHARGE DATE: 2 days or more Patient was discussed with, and will be seen and evaluated by attending physician - Gonzalez Cabrera, DO Eben Damon, [facility] Internal Medicine, PGY 1 This chart was completed in part utilizing [employer] Speech Voice Recognition Software. Grammatical errors, random word insertions, pronoun errors, and incomplete sentences are an occasional consequence of this system due to software limitations, ambient noise, and hardware issues. Any formal questions or concerns about the content, text, or information contained within the body of this dictation should be directly addressed to the provider for clarification. Associated attestation - Gonzalez Cabrera DO - 10/11/2023 7:45 AM EDT I saw and evaluated the patient today. I have reviewed the trainee note and agree. documented in this encounter Procedure Notes * Dc Santana MD - 10/11/2023 12:17 PM EDT [facility] [place] [address] [address] CARDIAC MILL TENDER WASHING BRIEF PROCEDURE NOTE Name: Georgina Javed Date: 10/11/2023 Time: 12:17 PM Location: CARDIAC LABS [facility] [place] Date of Procedure: 10/11/2023 Pre-op Diagnosis: Valve disease Post-op Diagnosis: Coronary artery disease, Moderate aortic stenosis Procedure: Right and left heart cath and coronary angiography Film Editor: Dr. Son Pipe Line Repairer(s): Dr. Santana Anesthesia: Monitored local anesthesia with sedation Additional Findings: LMCA stent is patent Mild mid LAD disease Mild proximal LCx disease Mild to moderate diffuse RCA disease Valve study: [id number] Gradient: 24mmHg Mean Gradient: 36mmHg Right Heart Catheterization Measurements (reference measures in parenthesis) RA = 6 mmHg [0-8 mmHg] RV = 81/7 mmHg [20-30/0-8 mmHg] Unable to traverse into the pulmonary artery, could not obtain the remainder of RHC pressures. Access: Right femoral vein and artery. Complications: none Condition of patient: Stable Post Sedation Evaluation: Cardiovascular status: acceptable Level of consciousness: awake and alert Airway patency: patent Distress - NAD Hydration status - well hydrated Nausea/vomiting - not present Recommendations: Non obstructive coronary artery disease. Prior LMCA stent is patent. Valve study, consistent with moderate aortic stenosis. Severely elevated RV pressures, unable to obtain remainder of RHC pressures due to technical difficulties. Patient was hypertensive during the procedure and was given 10mg of IV hydralazine. documented in this encounter Consult Notes * Isrrael Cummins, PT - 10/12/2023 10:50 AM EDTAssociated Order(s): ADULT PHYSICAL THERAPY CONSULT IP GENERAL EVALUATION - Physical Therapy [address] [id number] Name: Georgina Javed Location: [facility] [place] H856/A Date: 10/12/2023 Time: 1050 Georgina Javed is a/an 78 year old female. Patient Status: Inpatient Insurance: Payor: MEDICARE Plan: MEDICARE A AND B Product Type: *No Product type* Payor: AARP Plan: AARP Product Type: *No Product type* Patient Seen: at bedside, nursing cleared patient for therapy Patient Identified By: Name, ID Band and Date Diagnosis: chest pain (10/12/23 1050) Status of treatment: Evaluation completed (10/12/23 1050) Orders: PT evaluation and treatment;OOB (10/12/23 1050) Weight Bearing Status: Weight bearing as tolerated (10/12/23 1050) Precautions: Alarms;Falls;Safety (10/12/23 1050) Total Treatment Time--free text: 10 (10/12/23 1050) Past Medical History: Past Medical History: Diagnosis Date Anemia 10/01/2013 [...] below 140/90 04/18/2010 Inflammation of sacroiliac joint ([facility]) 09/15/2011 Iron deficiency anemia 03/15/2015 Irritable bowel syndrome Kidney disease, chronic, stage III (GFR 30-59 ml/min) ([facility]) 03/31/2013 Knee joint replacement status 11-24-13 left knee Lumbago 11/21/2010 Lumbar degenerative disc disease 06/29/2015 Lumbar spinal stenosis 06/29/2015 LUMBOSACRAL NEURITIS NOS 03/08/2011 Mitral valve prolapse MYALGIA AND MYOSITIS NOS 01/05/2011 NONALLERGIC RHINITIS 04/29/2004 OCCIPITAL NEURALGIA 01/05/2011 Osteoporosis 05/13/2010 Other chest pain non cardiac Other chronic sinusitis recurrent sinusitis PAD (peripheral artery disease) ([facility]) 03/03/2015 Periumbilical hernia Popliteal synovial cyst R leg Precordial pain noncardiac. Normal cardiac cath 1991 Pulmonary hypertension ([facility]) artery PVD (peripheral vascular disease) ([facility]) Reflux esophagitis RESPIRATORY ABNORM NEC 04/29/2004 Rheumatic fever as a child Rheumatic heart disease h/o systolic heart murmur Sacroiliac joint disease 09/15/2011 Senile osteoporosis based on FRAX, major risk of 22% Spinal stenosis of lumbar region without neurogenic claudication 1999 seen on MRI Tension headache Tietze's disease costochondritis Tubular adenoma of colon 04/14/15 Umbilical hernia VITAMIN D DEFICIENCY NOS 05/24/2011 Past Surgical History: Past Surgical History: Procedure Laterality Date ABD/PELVIS CT W/ + W/O IV AND W/PO CONTRAST 10/07/08 constipation, small EHH, periumbiical hernia ANESTHESIA FOR CAT OR MRI SCAN N/A 09/26/2018 ANESTHESIA FOR NON-INVASIVE IMAGING (MRI OR CT) performed by [facility] at [place] [facility] [place] ARTHROPLASTY KNEE TOTAL 11-24-13 dr rodriguez left knee CARDIAC ANGIOPLASTY, PERCUTANEOUS, 1 ARTERY Left 07/27/2022 PTCA, CARDIAC ANGIOPLASTY, PERCUTANEOUS, 1 ARTERY performed by Yoli Rocha MD at CARDIAC LABS [facility] [place] CARPAL TUNNEL SURGERY 08/05/08 right CATHETERIZE LEFT HEART THRU SKIN 1992 Cardiac Catheterization, Left Heart, was normal [facility] [place] COLONOSCOPY W/ BIOPSY (RECTUM) 06/08/2008 hyperplastic polyp--repeat 10 years COLONOSCOPY, DIAGNOSTIC (RECTUM) 04/14/2015 adenomatous polyp, melanosis, repeat 5 yrs/[facility] CORONARY ANGIOGRAPHY W/RIGHT+LEFT CATH N/A 01/08/2019 CORONARY ANGIOGRAPHY W/RIGHT+LEFT CATH performed by Shyam Son MD at [facility]S [facility] [place] CORONARY ANGIOGRAPHY W/RIGHT+LEFT CATH Right 05/31/2022 CORONARY ANGIOGRAPHY W/RIGHT+LEFT CATH performed by Yoli Rocha MD at [facility]S [facility] [place] CV STRESS TREADMILL 04/20/06 abnormal myocardial images [...] DIAGNOSTIC performed by Ricky Rogers MD at [facility] EGD, FLEXIBLE, DIAGNOSTIC 03/08/2015 Bar[place], HH/inpt [facility] EGD, FLEXIBLE, DIAGNOSTIC 06/12/2017 Bar[place]ts, hiatal hernia, repeat 2 yrs/[facility] EGD, FLEXIBLE, DIAGNOSTIC 07/07/2019 normal / [facility] EGD, FLEXIBLE, TRANSENDOSCOPIC DILATION <30MM 02/19/09 done mild esophagitis, possible short segment barretts, small hiatal hernia,few polyps in stomach path pending EGD, FLEXIBLE, W/BIOPSY 08/31/06 normal path EGD, FLEXIBLE, W/BIOPSY 02/19/09 done acid reflux EGD, FLEXIBLE, W/BIOPSY 05/06/10 biopsies--Barretts esophagitis--repeat 2 years EGD, W/ENDOSCOPIC US 04/10/2012 UPPER GI ENDOSCOPY ENDOSCOPIC ULTRASOUND performed by Gilmar Soler MD at [facility] FLUORO BARIUM ENEMA W AIR normal PAH LAPAROSCOPY, CHOLECYSTECTOMY WITH CHOLANGIOGRAPHY 06/12/12 Lap radha, with cholangiogram, lysis of abdominal adhesions, incisional hernia repair with atrium mesh 06/12/12 Dr. Metcalf at [facility] LYSIS OF LABIAL LESIONS N/A 12/23/2015 LYSIS OF LABIAL ADHESIONS performed by Jordan Rodriguez MD at [facility] MAMMOGRAM SCREENING-BILATERAL 01/26/06 stable microcalcifications on left, category 2 benign MOBILE DXA 12/03/2017 Femur T -2.4, fx risk 15%/4.2%, high risk, treatment recommended REMOVAL OF APPENDIX 1947 Appendectomy REMOVAL OF OVARY(S) 1986 Oophrectomy,Uni/Bilat REPAIR UMBILICAL HERNIA, UNDER 5 YR Hernia,Umbilical SACROILIAC JOINT INJECT W/GUIDANCE 06/09/2019 INJECTION SACROILIAC JOINT performed by He Simons, at [facility] SIGMOIDOSCOPY, DIAGNOSTIC negative Dr. Bowen VAGINAL HYSTERECTOMY 1986 Hysterectomy, Vaginal VASC DUPLEX CAROTID BILAT 06/29/08 16-49% LICA and TAE XR TMJ BILATERAL 10/20/09 Advanced range degenerative narrowing in the medial compartment Subjective: Pt awake in chair, agreeable to PT. Social History/Disposition Lives with: Alone (10/12/23 1050) Assistance available: Yes (10/12/23 1050) Dwelling type: Single story home (10/12/23 1050) Entry steps: (lift) (10/12/23 1050) Inside steps: None (10/12/23 1050) Bedroom location: 1st floor (10/12/23 1050) Bath location: 1st floor full bath (10/12/23 1050) Prior Level of Function Reported by: Patient (10/12/23 1050) Ambulation: Ambulatory with device (10/12/23 1050) Ambulatory Device: (rollator and cane) (10/12/23 1050) Devices at home: Rollator;Straight cane (10/12/23 1050) Observations Consciousness: Alert (10/12/23 1050) Orientation: Oriented times 4 (10/12/23 1050) Psychosocial: Patient can communicate basic needs;Patient can converse in a social setting (10/12/23 1050) Other Findings: Yes (10/12/23 1050) Findings: Light touch sensation (10/12/23 1050) Light Touch Sensation Results: Intact;LLE;RLE (10/12/231049) Sitting Posture: Forward head;Rounded shoulders;Kyphotic (10/12/231049) Standing Posture: Forward head;Rounded shoulders;Kyphotic (10/12/231049) Pain: Patient has complaints of pain. Pain located in legs, not rated. Range of Motion Range of Motion: WFL (10/12/231049) Strength Assessment Strength Assessment: Deficits noted (10/12/231049) WNL, except: LLE;RLE (10/12/231049) LLE: Hip;Knee;Ankle;3+/5 (10/12/231049) RLE: Hip;Knee;Ankle;3+/5 (10/12/231049) Transfers Sit-Stand: Contact Guard (10/12/231049) Stand-Sit: Contact Guard (10/12/231049) Ambulation: Distance ambulated (feet): 10 Assistive Device: Straight cane Assist: Contact Guard Balance Sit (Static): Fair (10/12/231049) Sit (Dynamic): Fair (10/12/231049) Stand (Static): (Fair -) (10/12/231049) Stand (Dynamic): (Fair -) (10/12/231049) Patient and or Family Goal(s): to get well and to return home Patient Education Review of Precautions: Safety;Fall (10/12/231049) Safety Awareness: Patient verbalizes insight of current deficits;Patient demonstrates carryover of insight during functional tasks;Patient can communicate basic needs (10/12/231049) Preferred learning method: Combination (10/12/231049) Barriers to learning: Medical Status (10/12/231049) Method of Education: Verbalized to patient;Patient demonstrated task (10/12/231049) Topic of Education: Safety with mobility, Goals/plan of care, and Fall prevention Method of Education: Verbal discussion and explanation provided to pt: verbalized understanding andor agreement of this information and demonstrated the exercise and or task Treatment Provided: Evaluation Moderate Complexity 10 minutes - 19456: Patient was cooperative and pleasant during treatment session. Moderate complexity evaluation performed and 1-2 personal factorsor comorbidities were identified that will impact plan of care, including lives alone at home and cardiac history. Patient presents with limitations in strength, bed mobility, transfers, gait, balance, endurance, and safety, which will impact plan of care. These limitations will be addressed by thegoals set for this patient. Alarm Status Patient positioned in: Chair (10/12/23 105) With: Pressure pad alarm intact and functioning and call sykes in reach (10/12/231049) Following session patient seated OOB in chair with chair alarm activated. Chair alarm (did not havecord to plug into call sykes system and/or room did not have port to plug cord into call sykes system). Patient's nurse was made aware. Goals: Demonstrate Bed Mobility with: supervision Demonstrate Transfers with: modified independent Demonstrate Ambulation: least restrictive device, 50 ft with modified independent Increase Strength of: B/L LE by 1/2-1 muscle grade Increase dynamic standing balance to: fair + Increase Safety: with all functional mobility Time Frame: 8 visits Assessment: Pt is a 78 year old female presenting with chest pain. Pt alert and oriented x4, following all commands throughout session. Pt demonstrated fair, symmetrical B/L LE strength/ROM and intact sensation. Pt noting that her lower legs were sore with edema present. Pt reporting being a limited ambulator at baseline with use of cane. Pt stood from recliner chair with contact guard and ambulated a short distance in the room with cane before requesting to sit down due to fatigue. Pt demonstrating decreased step length/height and a forward flexed posture during gait. Due to current functional status and lack of 12/02 supervision, please consider post-acute care services which may include home health, chcf, outpatient therapy or inpatient rehabilitation. The level of care will be determined in collaboration with patient, family/caregiver and care team members. All needs met. Deficits requiring P.T. treatment needs: Safety;Mobility;Balance;Weakness;Endurance;Lower extremitystrength (10/12/231049) Equipment Needs: Equipment needs: No device (10/12/231049) Treatment Plan: Bed mobility training, Transfer training, Gait training, Strengthening exercises: B/L LE, Balance activities, and Educate on safety with B/L LE Anticipated Frequency (on eval): 1 to 3 times per week (10/12/231049) AM PAC Score with Stairs: 17 A portion of this AM-PAC assessment not scored based on functional assessment; rather clinical decision making utilized based on current findings and/or prior level of function. Please refer to future AM-PAC calculations of functional ability as they become available. * Kasey Crouch, OTR/L - 10/12/2023 10:40 AM EDTAssociated Order(s): ADULT OCCUPATIONAL THERAPY CONSULT IP GENERAL EVALUATION - Occupational Therapy [address] [id number] Name: Georgina Javed Location: [facility] [place] [id number] Date: 10/12/2023 Time: 10:40 AM Georgina Javed is a 78 year old female. Patient Status: Inpatient Insurance: Payor: MEDICARE Plan: MEDICARE A AND B Product Type: *No Product type* Payor: AARP Plan: AARP Product Type: *No Product type* Patient Seen: at bedside, nursing cleared patient for therapy Patient Identified By: Name, ID Band and Date Diagnosis: chest pain/pulmonary hypotension (10/12/23 1040) Status of treatment: Evaluation completed (10/12/23 104) Orders: OT evaluation and treatment;OT OOB (10/12/23 1040) Weight Bearing Status: Weight bearing as tolerated (10/12/23 1040) Precautions: Falls;Safety;Alarms;Cardiac (10/12/23 1040) Total Treatment Time: 10 (10/12/23 104) Per Epic: "PMHx: HTN DLD CAD s/p stent L main 08/14 Severe Chronic HFpEF (LVEF 55-59% w/o WMA) Severe PAH (68 mmHg) CKD stage 4 Esophageal strictures GERD CBP SUMMARY: Georgina Javed is a 78 year old female presenting as transfer from [facility] where she was evaluated for chest pain, shortness of breath, myalgias, generalized weakness, anorexia. Per chart review: she was seen at outpatient cardiology clinic on 09/14/2023 for chest discomfort and shortness of breath. She was encouraged to increase her torsemide but declined and was started on spironolactone instead. On follow up on 09/28/2023 she continued to feel poorly. She did note improvementin her breathing with the addition of spironolactone. At this time she noted decreased p.o. intake and loss of 11 lb. She attributes the decreased p.o. intake to difficulty swallowing as she has esophageal strictures requiring previous dilations. She was placed on Imdur 30 mg daily for her chest pain however she self discontinued this medication on 10/01/2023 because she thought it was causing a sore throat, headache, nausea, vomiting, diarrhea. Per patient: She has been having intermittent chest pain and sob on exertion for the last 6-7 years, however, the pain can present at rest too. Prior Therapeutic Recreation Assistant have told her that the pain is likely related to her . She puts Terrance's vaper rub on her chest at home which helps to ease the pain. Thepain and sob has not worsened over this time. She denies any recent illness or sick contacts. She has difficulty laying flat because of the bony deformities in her spine causing her pain. She is not allergic to contrast. She has needed femoral access for her previous caths. In the ED at [facility] she was noted to be aren to 53 bpm. EKG at this time showed no acute STsegment changes. Troponin was elevated to 110 but had downtrended to 61. She was also noted to be hyponatremic and hypotensive at this time. They held her diuretics and started her on fluid resuscitation. Sodium was noted to improve. On 10/08 she started having atypical chest pain, heparin gtt was started and she was transferred over to [facility] [place] for further evaluation with cardiac cath? It is unclear what the reason for transfer is at this time. Recent Cardiac studies: Cardiac cath 07/27/22: Ostial to proximal LMCA has 70% stenosis s/p successful IVUS guided PCI with LU TTE 09/25/23: The LV wall thickness is mildly increased [...] pulmonary artery systolic pressure is 68 mm Hg." Past Medical History: Past Medical History: Diagnosis Date Anemia 10/01/2013 [...] Chronic coronary artery disease 05/20/2013 COPD, mild ([facility]) 03/31/2013 Degeneration of lumbosacral intervertebral disc 2000 [...] below 140/90 04/18/2010 Inflammation of sacroiliac joint ([facility]) 09/15/2011 Iron deficiency anemia 03/15/2015 Irritable bowel syndrome Kidney disease, chronic, stage III (GFR 30-59 ml/min) ([facility]) 03/31/2013 Knee joint replacement status 5-5-14 left knee Lumbago 11/21/2010 Lumbar degenerative disc disease 06/29/2015 Lumbar spinal stenosis 06/29/2015 LUMBOSACRAL NEURITIS NOS 03/08/2011 Mitral valve prolapse MYALGIA AND MYOSITIS NOS 01/05/2011 NONALLERGIC RHINITIS 04/29/2004 OCCIPITAL NEURALGIA 01/05/2011 Osteoporosis 05/13/2010 Other chest pain non cardiac Other chronic sinusitis recurrent sinusitis PAD (peripheral artery disease) ([facility]) 03/03/2015 Periumbilical hernia Popliteal synovial cyst R leg Precordial pain noncardiac. Normal cardiac cath 1992 Pulmonary hypertension ([facility]) artery PVD (peripheral vascular disease) ([facility]) Reflux esophagitis RESPIRATORY ABNORM NEC 04/29/2004 Rheumatic fever as a child Rheumatic heart disease h/o systolic heart murmur Sacroiliac joint disease 09/15/2011 Senile osteoporosis based on FRAX, major risk of 22% Spinal stenosis of lumbar region without neurogenic claudication 1999 seen on MRI Tension headache Tietze's disease costochondritis Tubular adenoma of colon 04/14/15 Umbilical hernia VITAMIN D DEFICIENCY NOS 05/24/2011 Past Surgical History: Past Surgical History: Procedure Laterality Date ABD/PELVIS CT W/ + W/O IV AND W/PO CONTRAST 10/07/08 constipation, small EHH, periumbiical hernia ANESTHESIA FOR CAT OR MRI SCAN N/A 09/26/2018 ANESTHESIA FOR NON-INVASIVE IMAGING (MRI OR CT) performed by [facility] at [place] [facility] [place] ARTHROPLASTY KNEE TOTAL 11-24-13 dr rodriguez left knee CARDIAC ANGIOPLASTY, PERCUTANEOUS, 1 ARTERY Left 07/27/2022 PTCA, CARDIAC ANGIOPLASTY, PERCUTANEOUS, 1 ARTERY performed by Yoli Rocha MD at [facility] [place] CARPAL TUNNEL SURGERY 08/05/08 right CATHETERIZE LEFT HEART THRU SKIN 1991 Cardiac Catheterization, Left Heart, was normal [facility] [place] COLONOSCOPY W/ BIOPSY (RECTUM) 06/08/2008 hyperplastic polyp--repeat 10 years COLONOSCOPY, DIAGNOSTIC (RECTUM) 04/14/2015 adenomatous polyp, melanosis, repeat 5 yrs/[facility] CORONARY ANGIOGRAPHY W/RIGHT+LEFT CATH N/A 01/08/2019 CORONARY ANGIOGRAPHY W/RIGHT+LEFT CATH performed by Shyam Son MD at [facility] [place] CORONARY ANGIOGRAPHY W/RIGHT+LEFT CATH Right 05/31/2022 CORONARY ANGIOGRAPHY W/RIGHT+LEFT CATH performed by Yoli Rocha MD at [facility] [place] CV STRESS TREADMILL 04/20/06 abnormal myocardial images [...] DIAGNOSTIC performed by Ricky Rogers MD at [facility] EGD, FLEXIBLE, DIAGNOSTIC 03/08/2015 [place], HH/inpt [facility] EGD, FLEXIBLE, DIAGNOSTIC 06/12/2017 [place]retts, hiatal hernia, repeat 2 yrs/[facility] EGD, FLEXIBLE, DIAGNOSTIC 07/07/2019 normal / [facility] EGD, FLEXIBLE, TRANSENDOSCOPIC DILATION <30MM 02/19/09 done mild esophagitis, possible short segment barretts, small hiatal hernia,few polyps in stomach path pending EGD, FLEXIBLE, W/BIOPSY 08/31/06 normal path EGD, FLEXIBLE, W/BIOPSY 02/19/09 done acid reflux EGD, FLEXIBLE, W/BIOPSY 05/06/10 biopsies--Barretts esophagitis--repeat 2 years EGD, W/ENDOSCOPIC US 04/10/2012 UPPER GI ENDOSCOPY ENDOSCOPIC ULTRASOUND performed by Gilmar Soler MD at [facility] FLUORO BARIUM ENEMA W AIR normal PAH LAPAROSCOPY, CHOLECYSTECTOMY WITH CHOLANGIOGRAPHY 06/12/12 Lap radha, with cholangiogram, lysis of abdominal adhesions, incisional hernia repair with atrium mesh 06/12/12 Dr. Metcalf at [facility] LYSIS OF LABIAL LESIONS N/A 12/23/2015 LYSIS OF LABIAL ADHESIONS performed by Jordan Rodriguez MD at [facility] MAMMOGRAM SCREENING-BILATERAL 01/26/06 stable microcalcifications on left, category 2 benign MOBILE DXA 12/03/2017 Femur T -2.4, fx risk 15%/4.2%, high risk, treatment recommended REMOVAL OF APPENDIX 1947 Appendectomy REMOVAL OF OVARY(S) 1986 Oophrectomy,Uni/Bilat REPAIR UMBILICAL HERNIA, UNDER 5 YR Hernia,Umbilical SACROILIAC JOINT INJECT W/GUIDANCE 06/09/2019 INJECTION SACROILIAC JOINT performed by He Simons, at [facility] SIGMOIDOSCOPY, DIAGNOSTIC negative Dr. Bowen VAGINAL HYSTERECTOMY 1987 Hysterectomy, Vaginal VASC DUPLEX CAROTID BILAT 06/29/08 16-49% LICA and TAE XR TMJ BILATERAL 10/20/09 Advanced range degenerative narrowing in the medial compartment Social History/Disposition Lives with: Alone (10/12/23 1050) Assistance available: Yes (10/12/23 1050) Dwelling type: Single story home (10/12/23 1050) Entry steps: (lift) (10/12/23 1050) Inside steps: None (10/12/23 1050) Bedroom location: 1st floor (10/12/23 1050) Bath location: 1st floor full bath (10/12/23 105) Prior Level of Function Reported by: Patient (10/12/23 104) Ambulation: Ambulatory with device (10/12/23 1040) Ambulatory Device: (rollator in home, cane outside of home for only short distances) (10/12/23 104) Grooming: Independent (10/12/23 104) Bathing: Independent (10/12/23 104) Dressing: Independent (10/12/23 104) Feeding: Independent (10/12/23 104) Toileting: Independent (10/12/23 104) Meal Prep: Independent (10/12/23 104) Homemaking: Assistance (10/12/23 104) Shopping: Assistance (10/12/23 104) Driving: No (10/12/231039) Durable Medical Equipment at home: Rollator;Stair glide/stair lift;Straight cane (10/12/23 104) Subjective: Pt was noted to be seated OOB in chair upon arrival and agreeable to therapy services. Pain: Patient has complaints of pain. Pain located BLEs, does not rate. Observations Consciousness: Alert (10/12/23 104) Orientation: Oriented times 4 (10/12/231039) Psychosocial: Patient can communicate basic needs;Patient can converse in a social setting (10/12/23 104) Sitting posture: Forward head;Rounded shoulders (10/12/23 104) Standing posture: Kyphotic;Forward head;Rounded shoulders (10/12/23 104) Safety awareness: The Patient verbalizes insight of current deficits. (10/12/23 104) Other Findings Endurance: Sitting tolerance;Fair;Standing tolerance;Functional activity;Poor (10/12/23 104) Light touch sensation: LUE;RUE;Impaired (reports numbness in BUE hands) (10/12/23 104) Coordination: LUE;RUE;Gross motor;Fine motor;Impaired (10/12/23 104) Current Functional Status: Bilateral Upper Extremity Range of Motion: WFL, except (10/12/231039) LUE: Shoulder;Other - comment (flexion limited to ~80 degrees, digits with decreased flexion due toarthritis per pt) (10/12/231039) RUE: Shoulder;Other - comment (flexion limited to ~80 degrees, digits with decreased flexion due toarthritis per pt) (10/12/231039) Strength Assessment: Deficits noted (10/12/231039) LUE: Shoulder;Grasp;2+/5;Elbow;4-/5 (10/12/231039) RUE: Shoulder;Grasp;2+/5;Elbow;4-/5 (10/12/231039) Dressing Upper Body: Minimal Assistance (to manage gown) (10/12/231039) Lower Body: Dependent (to natalya socks) (10/12/231039) Functional Ambulation Assistive Device: Cane (10/12/231039) Distance in feet:: 10 (10/12/231039) Level of Assistance: Contact Guard (10/12/231039) OT Transfers Sit-Stand: Contact Guard (from chair) (10/12/231039) Stand-Sit: Contact Guard (to chair) (10/12/231039) Balance Sit (Static): Fair (10/12/231039) Sit (Dynamic): Fair (10/12/231039) Stand (Static): Fair (-) (10/12/231039) Stand (Dynamic): Fair (-) (10/12/231039) Alarm Status Patient positioned in: Chair (10/12/231039) With: Call sykes in reach (no alarm in use upon arrival) (10/12/231039) Patient and Family Goals: to get well and to return home Patient Education Education Topic: Role of OT;Plan of care goals (10/12/231039) Review of Precautions: Safety;Fall (10/12/231039) Method of Education: Verbalized to patient (10/12/231039) Education Provided to: Patient (10/12/231039) Response to Education: Receptive and agreeable to education (10/12/231039) Barriers to learning: Medical status (10/12/231039) Preferred learning method: Combination (10/12/231039) Treatment Provided: Evaluation Moderate Complexity 10 minutes - 27796: Patient was cooperative and pleasant during treatment session. Moderate complexity evaluation performed and 3-5 activity limitations were identified, including ADL deficit, functional mobility deficit, decreased strength, decreased endurance, decreased range of motion, and impaired balance. Minimal or moderate modification of the functional task was necessary to complete the evaluation. Deficits Requiring O.T. Treatment: Deficits requiring O.T. treatment needs: ADL/self-care;Balance;Endurance;Functional mobility;Safety;Upper extremity strength;Weakness;Upper extremity range of motion;Fine motor coordination (10/12/23 1040) Goals: Demonstrates Self-care at: Feeding: Modified Independent Grooming: Modified Independent Toileting: Supervision UE dressing: Supervision UE bathing: Supervision LE dressing: Min A LE bathing: Min A Demonstrates Bed Mobility at: Supine-Sit: Modified Independent Sit-Supine: Modified Independent Demonstrates transfers at: Sit-Stand: Modified Independent Stand-Sit: Modified Independent Bed-Chair: Modified Independent Toilet: Modified Independent Shower/Tub: Modified Independent Demonstrates functional ambulation at: Assistive device: appropriate device as needed Level of Assistance: Modified Independent Balance: Static Sitting: Fair+ Dynamic Sitting: Fair+ Static Standing: Fair+ Dynamic Standing: Fair+ Strength/ROM: Increase BUE strength 1/2 muscle grade Increase bilateral upper extremity shoulder range of motion to ~110 degrees Increase BUE digit AROM/fine motor coordination Endurance: Increase endurance to 30/30 minutes in order to improve participation in ADL tasks and general mobility Safety awareness/Cognition: Increase safety awareness during functional mobility Goal Time Frame: 8 visits Assessment: Pt was admitted to [facility] [place] for the above dx. Pt was pleasant and cooperative during her OT evaluation this date. Upon arrival, pt was seated OOB in chair and agreeable to therapy services. Family present at bedside. Prior to admission, pt reports that she lives alone in a 1 story home with a chair lift she utilizes to enter. Pt states that she was previously independent with ADL tasks, required assistance for some IADL tasks, and was independent for mobility with use of a rollator in the home (states she sits on seat a lot, ambulates only short distances) and cane outside of the home in community. Upon exam, pt performed UE dressing task with min A secondary to decreased shoulder flexion and LE dressing task with total A due to limited functional reach. All transfers and ambulation were completed with contact guard. Pt ambulated 10 ft in room with use of a cane. Ambulation currently limited due to chronic pain in BLEs (per pt)/ endurance. Following session, pt was noted to be seated in chair with call sykes in reach. All needs met. Currently, pt presents with difficulty in ADL completion and general mobility secondary to decreased strength, balance, endurance, safety awareness, and overall current medical status. Pt would benefit from acute OT services to increaseher independence with ADL tasks and general mobility. In regard to discharge, please consider post-a cute care services which may include home health, chcf, outpatient therapy or inpatient rehabilitation. The level of care will be determined in collaboration with patient, family/caregiverand care team members. Treatment Plan: Energy Conservation, Safety, Bed mobility training, Functional Ambulation, Transfertraining, Coordination Tasks, ROM exercises, Upper extremity strengthening, Balance activities, ADLtraining, Endurance, and Educate on safety with ADLs and mobility. Anticipated Frequency (on eval): 1 to 3 times per week (10/12/23 104) AM-PAC Help From Another Person Eating Meals: None (10/12/23 104) Help From Another Person Taking Care of Personal Grooming: A little (10/12/23 104) Help From Another Person To Put On/Take Off Upper Body Clothing: A little (10/12/23 104) Help From Another Person To Put On/Take Off Lower Body Clothing: Total (10/12/23 104) Help From Another Person Toileting: A lot (10/12/23 104) Help From Another Person Bathing: A lot (10/12/23 104) OT AM-PAC Score: 15 (10/12/23 1040) OT AM-PAC t-Scale Score: 34.69 (10/12/23 1040) HLM (Highest Level of Mobility) Goal: Level 5 standing (1 or more minutes) (10/12/23 1050) A portion of this AM-PAC assessment not scored based on functional assessment; rather clinical decision making utilized based on current findings and/or prior level of function. Please refer to future AM-PAC calculations of functional ability as they become available. documented in this encounter Nursing Notes * Lima Jolley BSN - 10/11/2023 10:00 AM EDT IP TO CARDIAC INVASIVE LABS HANDOFF COMMUNICATION NOTE [facility] [place]-[address] [address] Name: Georgina Javed AGE: [age] year old Location: CATH/Cath Date: 10/11/2023 Attention to: Nursing Report from: MATY Gill Patient arriving via: Bed Time of Call: 1000 Phone Ext.: [phone] Reason for SBAR handoff: Procedure/Diagnostic/Treatment Patient able to sign Consent: Yes Female 11-55 Test Resulted if Ordered: Does not meet criteria. Emotional/Personal Anxiety? NONE Allergies: Contrast Dye Allergy: no Dye Allergy Prep Given: no Neurontin [gabapentin], Oxycodone, and Altace [ramipril] PMH: Past Medical History: Diagnosis Date Anemia 10/01/2013 [...] Chronic coronary artery disease 05/20/2013 COPD, mild ([facility]) 03/31/2013 Degeneration of lumbosacral intervertebral disc 2000 [...] below 140/90 04/18/2010 Inflammation of sacroiliac joint ([facility]) 09/15/2011 Iron deficiency anemia 03/15/2015 Irritable bowel syndrome Kidney disease, chronic, stage III (GFR 30-59 ml/min) ([facility]) 03/31/2013 Knee joint replacement status 11-24-13 left knee Lumbago 11/21/2010 Lumbar degenerative disc disease 06/29/2015 Lumbar spinal stenosis 06/29/2015 LUMBOSACRAL NEURITIS NOS 03/08/2011 Mitral valve prolapse MYALGIA AND MYOSITIS NOS 01/05/2011 NONALLERGIC RHINITIS 04/29/2004 OCCIPITAL NEURALGIA 01/05/2011 Osteoporosis 05/13/2010 Other chest pain non cardiac Other chronic sinusitis recurrent sinusitis PAD (peripheral artery disease) ([facility]) 03/03/2015 Periumbilical hernia Popliteal synovial cyst R leg Precordial pain noncardiac. Normal cardiac cath 1991 Pulmonary hypertension ([facility]) artery PVD (peripheral vascular disease) ([facility]) Reflux esophagitis RESPIRATORY ABNORM NEC 04/29/2004 Rheumatic fever as a child Rheumatic heart disease h/o systolic heart murmur Sacroiliac joint disease 09/15/2011 Senile osteoporosis based on FRAX, major risk of 22% Spinal stenosis of lumbar region without neurogenic claudication 2000 seen on MRI Tension headache Tietze's disease costochondritis Tubular adenoma of colon 04/14/15 Umbilical hernia VITAMIN D DEFICIENCY NOS 05/24/2011 PSH: Past Surgical History: Procedure Laterality Date ABD/PELVIS CT W/ + W/O IV AND W/PO CONTRAST 10/07/08 constipation, small EHH, periumbiical hernia ANESTHESIA FOR CAT OR MRI SCAN N/A 09/26/2018 ANESTHESIA FOR NON-INVASIVE IMAGING (MRI OR CT) performed by [facility] [place] [facility] [place] ARTHROPLASTY KNEE TOTAL 5-5-14 dr rodriguez left knee CARDIAC ANGIOPLASTY, PERCUTANEOUS, 1 ARTERY Left 07/27/2022 PTCA, CARDIAC ANGIOPLASTY, PERCUTANEOUS, 1 ARTERY performed by Yoli Rocha MD at CARDIAC LABS [facility] [place] CARPAL TUNNEL SURGERY 08/05/08 right CATHETERIZE LEFT HEART THRU SKIN 1991 Cardiac Catheterization, Left Heart, was normal [facility] [place] COLONOSCOPY W/ BIOPSY (RECTUM) 06/08/2008 hyperplastic polyp--repeat 10 years COLONOSCOPY, DIAGNOSTIC (RECTUM) 04/14/2015 adenomatous polyp, melanosis, repeat 5 yrs/[facility] CORONARY ANGIOGRAPHY W/RIGHT+LEFT CATH N/A 01/08/2019 CORONARY ANGIOGRAPHY W/RIGHT+LEFT CATH performed by Shyam Son MD at CARDIAC LABS [facility] [place] CORONARY ANGIOGRAPHY W/RIGHT+LEFT CATH Right 05/31/2022 CORONARY ANGIOGRAPHY W/RIGHT+LEFT CATH performed by Yoli Rocha MD at [facility]ARDIAC LABS [facility] [place] CV STRESS TREADMILL 04/20/06 abnormal myocardial images [...] 02/05/2012 UPPER GI ENDOSCOPY DIAGNOSTIC performed by Rciky Rogers MD at [facility] EGD, FLEXIBLE, DIAGNOSTIC 03/08/2015 Barretts, HH/inpt [facility] EGD, FLEXIBLE, DIAGNOSTIC 06/12/2017 Barretts, hiatal hernia, repeat 2 yrs/[facility] EGD, FLEXIBLE, DIAGNOSTIC 07/07/2019 normal / [facility] EGD, FLEXIBLE, TRANSENDOSCOPIC DILATION <30MM 02/19/09 done mild esophagitis, possible short segment barretts, small hiatal hernia,few polyps in stomach path pending EGD, FLEXIBLE, W/BIOPSY 08/31/06 normal path EGD, FLEXIBLE, W/BIOPSY 02/19/09 done acid reflux EGD, FLEXIBLE, W/BIOPSY 05/06/10 biopsies--Barretts esophagitis--repeat 2 years EGD, W/ENDOSCOPIC US 04/10/2012 UPPER GI ENDOSCOPY ENDOSCOPIC ULTRASOUND performed by Gilmar Soler MD at [facility] FLUORO BARIUM ENEMA W AIR normal PAH LAPAROSCOPY, CHOLECYSTECTOMY WITH CHOLANGIOGRAPHY 06/12/12 Lap radha, with cholangiogram, lysis of abdominal adhesions, incisional hernia repair with atrium mesh 06/12/12 Dr. Metcalf at [facility] LYSIS OF LABIAL LESIONS N/A 12/23/2015 LYSIS OF LABIAL ADHESIONS performed by Jordan Rodriguez MD at [facility] MAMMOGRAM SCREENING-BILATERAL 01/26/06 stable microcalcifications on left, category 2 benign MOBILE DXA 12/03/2017 Femur T -2.4, fx risk 15%/4.2%, high risk, treatment recommended REMOVAL OF APPENDIX 1947 Appendectomy REMOVAL OF OVARY(S) 1986 Oophrectomy,Uni/Bilat REPAIR UMBILICAL HERNIA, UNDER 5 YR Hernia,Umbilical SACROILIAC JOINT INJECT W/GUIDANCE 06/09/2019 INJECTION SACROILIAC JOINT performed by He Simons DO at OR [facility] SIGMOIDOSCOPY, DIAGNOSTIC negative Dr. Bowen VAGINAL HYSTERECTOMY 1986 Hysterectomy, Vaginal VASC DUPLEX CAROTID BILAT 06/29/08 16-49% LICA and TAE XR TMJ BILATERAL 10/20/09 Advanced range degenerative narrowing in the medial compartment Isolation: Situation/Background Admission Date: 10/11/2023 Patient Service: Cardiology Med A Attending: Gonzalez Cabrera DO Level of Care: Med Surg [3] Assessment Vital Signs: BP: 155/59 (10/11/23 0758) Temp: 36.7 C (98 F) (10/11/23 0354) Pulse: 60 (10/11/23 0758) Resp: 16 (10/11/23 0354) SpO2: 94 % (10/11/23 0758) Lines: Peripheral Line Left;Lower 18 Gauge (Active) Status Flushes easily;Alcohol disinfectant cap;Cap changed;Fluids infusing 10/11/23 0500 Tubing Changed Yes 10/11/23 0500 Phlebitis Scale 0 10/11/23 0500 Infiltration Scale 0 10/11/23 0500 Site Description (Other) Without redness, swelling or drainage 10/11/23 0500 Site Intervention Flushed 10/11/23 0500 Dressing Assessment Dressing clean, dry, and intact 10/11/23 0500 Number of days: 1 Peripheral Line Left;Lower Arm 20 Gauge (Active) Status Capped/Locked;Flushes easily;Alcohol disinfectant cap;Cap changed 10/11/23 0500 Tubing Changed No 10/11/23 0500 Phlebitis Scale 0 10/11/23 0500 Infiltration Scale 0 10/11/23 0500 Site Description (Other) Without redness, swelling or drainage 10/11/23 0500 Site Intervention Flushed 10/11/23 0500 Dressing Assessment Dressing clean, dry, and intact 10/11/23 0500 Number of days: 1 Labs: Please see Lab Flowsheet for lab values. Lab Comments: Diet: Orders Placed This Encounter Procedures NPO Except Meds NPO: Additional Diet Information: NPO since Midnight Intake and Output: Intake/Output Summary (Last 24 hours) at 10/11/2023 1102 Last data filed at 10/11/2023 0544 Gross per 24 hour Intake 8.15 ml Output 200 ml Net -191.85 ml Belongings Remaining with Patient: NONE What were AM meds taken with: Sip of water Time of last pain medication: NONE Time of last antibiotic: NONE Antiplatelets: Anticoags: Neurological: Neuro WNL: X - Exceptions to WNL as documented below (10/11/23353) Speech: Clear (10/11/23353) Level of Consciousness: Alert (10/11/23353) RUE Motor Strength: 4-Active movement with some resistance (10/11/23353) RLE Motor Strength: 4-Active movement with some resistance (10/11/23353) LUE Motor Strength: 4-Active movement with some resistance (10/11/23353) LLE Motor Strength: 4-Active movement with some resistance (10/11/23353) Coma Score: 15 (10/11/23353) Respiratory: Respiratory WNL: X - Exceptions to WNL as documented below (10/11/23353) Dyspnea Occurance: With Exertion (10/11/23353) Oxygen therapy/ Mechanical vent Supplemental O2 Delivery: Room Air, None (10/11/23757) Cardiac: Cardiovascular WNL: X - Exceptions to WNL as documented below (10/11/23353) Rhythm: Regular (10/11/23353) Edema Location: Lower extremities;Both;Left;Right (10/11/23353) Edema Assessment: +1 - Description (10/11/23353) GI: GI WNL: WNL - within normal limits (10/11/23353) : WNL: WNL - within normal limits (10/11/23353) Integumentary: Integumentary WNL: X - Exceptions to WNL as documented below (10/11/23353) Skin Lesion: (redness on the buttock) (10/11/23353) Chris Score (auto-calculation): 17 (10/11/23 0400) Additional Assessment Information: Patient is one assist with a cane Reminder: Void news content specialist, all clothes removed. * Nai Velasquez RN - 10/11/2023 7:54 AM EDT Patient admitted with elevated BP at 180s. Denies chest pain or SOB. Covering MD at bedside, assessed the patient , no new order. Had EKG done, report was signed by covering MD. * Nai Velasquez RN - 10/11/2023 5:07 AM EDT Dual Licensed Skin Assessment completed by nai velasquez and Keely Thomas . The patient is/has a pressure injury on their torso - consider low air loss bed Skin Breakdown (includes non blanchable erythema): redness on the buttock . documented in this encounter Miscellaneous Notes * Care Plan - Henrietta Christiansen RN - 10/12/2023 1:11 AM EDT Clinical Goal(s): Pt will have no reports of chest pain (10/11/23 2300) Possible barriers to meeting goal(s)/advancing plan of care: None Stability of the patient: Moderately stable - low risk of patient condition declining or worsening Summary regarding today's goal(s): Met: Pt currently chest pain- free Recommendations: Continue current assessments/ monitoring * Ancillary Progress Note - Erika Jones Chaplain - 10/11/2023 6:36 PM EDT On routine visit, offered prayer, words of encouragement, and anointing of the sick. Being an NPO patient she could not receive the Holy Communion. The son and the [id number] were present duringthe spiritual care exercise. They were grateful for the visit. * Ancillary Progress Note - Ragini Castillo RCIS - 10/11/2023 1:05 PM EDT [address] [address] Ancillary Progress Note Patient Name: Georgina Javed Date: 10/11/2023 Patient will be escorted to [facility]-Cardiac Recovery Suite. We performed a diagnostic right and left heart cardiac catheterization procedure on this patient. The right femoral artery and right femoral vein was used for access with a 6 Maori sheath. Manual pressure was held for 30 minutes and hemostasis was obtained. There is no hematoma and no ooze from the cath site noted. CHG Tegaderm dressing applied to site. Distal pulses were palpated and instructions to patient were given. There were no complications during the case. Please see the MAR for the medications that were given. See Cath Procedure Log for patient vitals during the case. * Ancillary Progress Note - Kasey Crouch OTR/L - 10/11/2023 10:43 AM EDT Georgina Javed 78 year old [id number] CATH/Cath Occupational Therapy OT consult received. Pt attempted to be seen at this time for OT evaluation. Pt currently off floorupon arrival. Pt will be seen at a later time as able/appropriate. Thank you. * Ancillary Progress Note - Ragini Paul RN - 10/11/2023 10:01 AM EDT CARE MANAGEMENT - ADULT INITIAL SCREENING [address] [address] Name: Georgina Javed Location: [facility] [place] [id number] Date: 10/11/2023 Time: 10:01 AM Discussed patient with the interdisciplinary care team. This Dishwasher Preparer performed a chart review and met with Georgina at bedside to complete admission screen and assessed needs for transition planning. The field care advocate role and services were explained and emotional support was provided. Chief Complaint: No chief complaint on file. Prior Living Arrangements What was your living situation prior to admission/observation?: Independently;Alone (10/11/23954) Living Quarters: House (10/11/23954) Number of steps to enter living quarters:: 1 (10/11/23954) Do you have serious difficulty walking or climbing stairs? (5 years old or older): No (10/11/23433) History of falling: No (10/11/23399) Prior Level of Functioning Describe the patient's ability prior to admission/observation to perform ADLs: Requires assistance (10/11/23954) Requires assistance with: Bathing (10/11/23954) Describe the patient's mobility status prior to admission: Patient ambulates independently (10/11/23954) Patient uses assistive device: Yes (10/11/23954) If yes, choose:: (Rollator) (10/11/23954) Caregiver Information Patient Contacts Name Relation Home Work Mobile RONY JAVED Adult Child [phone] Risk Stratification/Psychosocial/Care Gaps Risk Stratification Psycho Social / Medical Concerns Identified: Adjustment to illness/injury;Multiple Comorbidities (10/11/23954) Readmission Risk Score: 12.1 (10/11/23 0801) AM-PAC Score With Stairs : 19 (10/11/23 0400) Prior to Admission Services Services Prior to Admission BOILER COVERER HELPER Services (Services received within the last 30 days with exception, Psych within last two years): Durable Medical Equipment (10/11/23954) BOILER COVERER HELPER Durable Medical Equipment (DME) in home: Cane;Stair [place];Wheelchair standard;Other - Comment (Rollator) (10/11/23954) [place] Dept[employer] of Aging (PDA) Waiver Program: Other - Comment (son provided info to contact local [facility] for waiver services) (10/11/23954) BOILER COVERER HELPER Transportation (Services received within the last 30 days): Family/Friends Personal Vehicle (10/11/23954) Outpatient Dishwasher Preparer: No care hat steamer to display Patient/Family Expectations: Patient anticipates returning home at time of discharge. She states she lives alone, but her one son lives across the street and another lives about 10 minutes away. She reports that she is overall independent with ADLs, but does have difficulty with bathing. She is notactive with her local [facility] for waiver services, but states that her son was provided with their contact info while at [facility] to apply. She is interested in home health at time of discharge. She has no preference to agency, so mass referrals were sent. She does not drive, but anticipates her family to provide transportation at time of discharge. For further screening information, please refer to the Care Management flow document. * Ancillary Progress Note - Ragini Paul RN - 10/11/2023 9:59 AM EDT HOME HEALTH/HOSPICE REFERRAL FORM CARE MANAGEMENT [facility] [place]-[address] [address] Referred By: Ragini Paul RN Admission Date: 10/11/2023 Discharge Date: Discharge Time: Start Date: 24-48 hours after d/c Agency Referred To: PATIENT INFORMATION: Name: Georgina Javed [address]: [address] [place] [id number] : 1945 (home) SSN: [id number] County: [place] Caregiver Name: Rony Javed Relationship: Son Emergency Contacts: Extended Emergency Contact Information Primary Emergency Contact: RONY JAVED Relation: Adult Child Preferred language: [place] Associate Merchandise Planner needed? No MEDICAL INFORMATION: Principal Diagnosis: Chest pain Other Diagnosis: See attached History and Physical Surgery and Dates: Past Surgical History: Procedure Laterality Date ABD/PELVIS CT W/ + W/O IV AND W/PO CONTRAST 10/07/08 constipation, small EHH, periumbiical hernia ANESTHESIA FOR CAT OR MRI SCAN N/A 09/26/2018 ANESTHESIA FOR NON-INVASIVE IMAGING (MRI OR CT) performed by [facility] [place] [facility] [place] ARTHROPLASTY KNEE TOTAL 5-5-14 dr rodriguez left knee CARDIAC ANGIOPLASTY, PERCUTANEOUS, 1 ARTERY Left 07/27/2022 PTCA, CARDIAC ANGIOPLASTY, PERCUTANEOUS, 1 ARTERY performed by Yoli Rocha MD at [facility]ARDIAC LABS [facility] [place] CARPAL TUNNEL SURGERY 08/05/08 right CATHETERIZE LEFT HEART THRU SKIN 1992 Cardiac Catheterization, Left Heart, was normal [facility] [place] COLONOSCOPY W/ BIOPSY (RECTUM) 06/08/2008 hyperplastic polyp--repeat 10 years COLONOSCOPY, DIAGNOSTIC (RECTUM) 04/14/2015 adenomatous polyp, melanosis, repeat 5 yrs/[facility] CORONARY ANGIOGRAPHY W/RIGHT+LEFT CATH N/A 01/08/2019 CORONARY ANGIOGRAPHY W/RIGHT+LEFT CATH performed by Shyam Son MD at [facility] LABS [facility] [place] CORONARY ANGIOGRAPHY W/RIGHT+LEFT CATH Right 05/31/2022 CORONARY ANGIOGRAPHY W/RIGHT+LEFT CATH performed by Yoli Rocha MD at [facility]AC LABS [facility] [place] CV STRESS TREADMILL 04/20/06 abnormal myocardial images [...] DIAGNOSTIC performed by Ricky Rogers MD at [facility] EGD, FLEXIBLE, DIAGNOSTIC 03/08/2015 Barretts, HH/inpt [facility] EGD, FLEXIBLE, DIAGNOSTIC 06/12/2017 Barretts, hiatal hernia, repeat 2 yrs/[facility] EGD, FLEXIBLE, DIAGNOSTIC 07/07/2019 normal / [facility] EGD, FLEXIBLE, TRANSENDOSCOPIC DILATION <30MM 02/19/09 done mild esophagitis, possible short segment barretts, small hiatal hernia,few polyps in stomach path pending EGD, FLEXIBLE, W/BIOPSY 08/31/06 normal path EGD, FLEXIBLE, W/BIOPSY 02/19/09 done acid reflux EGD, FLEXIBLE, W/BIOPSY 05/06/10 biopsies--Barretts esophagitis--repeat 2 years EGD, W/ENDOSCOPIC US 04/10/2012 UPPER GI ENDOSCOPY ENDOSCOPIC ULTRASOUND performed by Gilmar Soler MD at OR [facility] FLUORO BARIUM ENEMA W AIR normal PAH LAPAROSCOPY, CHOLECYSTECTOMY WITH CHOLANGIOGRAPHY 06/12/12 Lap radha, with cholangiogram, lysis of abdominal adhesions, incisional hernia repair with atrium mesh 06/12/12 Dr. Metcalf at [facility] LYSIS OF LABIAL LESIONS N/A 12/23/2015 LYSIS OF LABIAL ADHESIONS performed by Jordan Rodriguez MD at [facility] MAMMOGRAM SCREENING-BILATERAL 01/26/06 stable microcalcifications on left, category 2 benign MOBILE DXA 12/03/2017 Femur T -2.4, fx risk 15%/4.2%, high risk, treatment recommended REMOVAL OF APPENDIX 1947 Appendectomy REMOVAL OF OVARY(S) 1986 Oophrectomy,Uni/Bilat REPAIR UMBILICAL HERNIA, UNDER 5 YR Hernia,Umbilical SACROILIAC JOINT INJECT W/GUIDANCE 06/09/2019 INJECTION SACROILIAC JOINT performed by He Simons DO at OR [facility] SIGMOIDOSCOPY, DIAGNOSTIC negative Dr. Bowen VAGINAL HYSTERECTOMY 1986 Hysterectomy, Vaginal VASC DUPLEX CAROTID BILAT 06/29/08 16-49% LICA and TAE XR TMJ BILATERAL 10/20/09 Advanced range degenerative narrowing in the medial compartment Diet: Adults: as per discharge instructions Allergies: Neurontin [gabapentin], Oxycodone, and Altace [ramipril] Isolation Type: None Activity Restrictions: As per discharge instructions Isolation For: None HOME CARE ORDERS: (Discipline and Frequency): Overall health assessment and vital signs Medication management and teaching Disease management and teaching Home safety evaluation Assess for services PT/OT evaluation as indicated Labwork as indicated Medications Dose, Frequency, & Route: See patient copy of discharge instructions Equipment and Supplies: N/A Ordering Physician and Contact Information: Dr. Cabrera Comments: n/a PCP: PCP: DURGA CAMARA [address] [place] [place] [address] HOME [place] [id number] D/C Physician: Dr. Cabrera Insurance: See attached facesheet. * Ancillary Progress Note - Adamaris Cleaning RDN - 10/11/2023 9:33 AM EDT Patient screened for alteration in skin integrity. Redness to sacrum . Not nutritionally significant. Will follow per clinical nutrition protocol. Adamaris Cleaning MS, RDN, LDN Clinical Dietitian [facility] text * Care Plan - Nai Velasquez RN - 10/11/2023 5:46 AM EDT Problem: Decreased Cardiac Output Goal: Patient will have improved cardiac output. Outcome: Progressing Problem: Alteration in Fluid Balance Goal: Patient will achieve & maintain optimal fluid balance. Outcome: Progressing Problem: Ineffective Breathing Pattern Goal: Patient will achieve & maintain effective breathing pattern. Outcome: Progressing Problem: Activity Intolerance & Impaired Mobility Goal: Patient will maintain optimal mobility & activity level. Outcome: Progressing Problem: Knowledge Deficit Goal: Patient & caregiver will demonstrate understanding. Outcome: Progressing Problem: Pain & Impaired Comfort Goal: Patient's pain & discomfort is manageable. Outcome: Progressing Problem: Safety & Risk for Injury Goal: Patient will remain free from injury. Outcome: Progressing Problem: Daily Care & Potential Self-Care Deficit Goal: Patient's daily care needs are met. Outcome: Progressing Problem: Risk for Impaired Physical Mobility Goal: Patient will maintain optimal mobility level. Outcome: Progressing Problem: Knowledge Deficit Goal: Patient & caregiver will demonstrate understanding. Outcome: Progressing Problem: Discharge Barriers Goal: Patient's discharge needs are met. Outcome: Progressing Problem: Actual & Potential for Impaired Skin Integrity Goal: Patient will maintain skin integrity. Outcome: Progressing Goal: Patient will maintain adequate nutritional intake. Outcome: Progressing Problem: Actual & Potential for Falls Goal: Patient will remain free of falls. Outcome: Progressing Problem: Alteration in Fluid Balance Goal: Patient will achieve & maintain optimal fluid balance. Outcome: Progressing Problem: Ineffective Breathing Pattern Goal: Patient will achieve & maintain effective breathing pattern. Outcome: Progressing Problem: Activity Intolerance & Impaired Mobility Goal: Patient will maintain optimal mobility & activity level. Outcome: Progressing Problem: Knowledge Deficit Goal: Patient & caregiver will demonstrate understanding. Outcome: Progressing Problem: Pain & Impaired Comfort Goal: Patient's pain & discomfort is manageable. Outcome: Progressing Problem: Safety & Risk for Injury Goal: Patient will remain free from injury. Outcome: Progressing Problem: Daily Care & Potential Self-Care Deficit Goal: Patient's daily care needs are met. Outcome: Progressing Problem: Risk for Impaired Physical Mobility Goal: Patient will maintain optimal mobility level. Outcome: Progressing Problem: Knowledge Deficit Goal: Patient & caregiver will demonstrate understanding. Outcome: Progressing Problem: Discharge Barriers Goal: Patient's discharge needs are met. Outcome: Progressing Problem: Actual & Potential for Impaired Skin Integrity Goal: Patient will maintain skin integrity. Outcome: Progressing Problem: Actual & Potential for Impaired [facility] Integrity Goal: Patient will maintain adequate nutritional intake. Outcome: Progressing Problem: Actual & Potential for Falls Goal: Patient will remain free of falls. Outcome: Progressing Clinical Goal(s): client has no adverse effect from heparin drip. (10/11/23 0400) Possible barriers to meeting goal(s)/advancing plan of care: chronic cardiac issue Stability of the patient: Moderately stable - low risk of patient condition declining or worsening Summary regarding today's goal(s): Met: Recommendations: cont. With plan of care documented in this encounter Plan of Treatment Upcoming Encounters Date Type Department Care Team (Late st Contact Info) Description 10/19/2023 10:30 AM EDT Office [facility] [id number] P[facility]illa Morse CR[facility] [place] [address] 12/13/2023 2:30 PM EDT Cardiac Studies Cardiac Studies, [facility] [place] [id number] 12/19/2023 1:30 PM EDT Office Visit Cardiology, [facility] [address] [facility] [place] [address] Shyam Son MD [address] [place] [address] 04/23/2024 3:10 PM EDT Office Visit Family Medicine [address] [place] [phone] [place] [address] Scheduled Orders Name Type Priority Associated Diagnoses Orde r Schedule BASIC METABOLIC PANEL Lab Routine SIADH (syndrome of inappropriate ADH production) (FORMERLY [facility]) Expected: 10/12/2023, Expires: 10/13/2024 Health Maintenance Due Date Last Done Comments [...] Additional history exists CKD PHOS USE SMARTSET 57827 10/10/202409/21, 11/22/2022, 11/18/2021, Additional history exists CKD HGB USE SMARTSET 02659 10/11/202410/11, 10/11/2023, 09/14/2023, Additional history exists O2 [...] this encounter Medical Devices Implanted Type Area Ordnance Truck Installation Supervisor Device Identifier Shelf Expiration Date Model / Serial / Lot Cath Thermodilution 6fr - [id number] Implanted:Qty: 1 on 05/31/2022 by Yoli Rocha MD at [facility] [employer] [id number] 01/30/2024 [id number] / / [id number] Stent Synergy Xd Mr [id number] - [id number] Implanted:Qty: 1 on 07/27/2022 by Yoli Rocha MD at [facility] [place] [facility] [employer] 11/08/2023 [id number] / / [id number] Cath Thermodilution 6fr - [id number] Implanted:Qty: 1 on 10/11/2023 by Shyam Son MD at [facility] [facility] [employer] [id number] 12/28/2024 [id number] / / [id number] documented as of this encounter Procedures Procedure Name Priority Date/Time Associated Diagnosis Comments BASIC METABOLIC PANEL STAT 10/12/2023 7:05 AM EDT MAGNESIUM STAT 10/12/2023 7:05 AM EDT PT INR Routine 10/12/2023 5:23 AM EDT CBC STAT 10/12/2023 5:23 AM EDT ECHO, TTE, LIMITED Routine 10/11/2023 3: 58 PM EDT Valvular heart disease BASIC METABOLIC PANEL Routine 10/11/2023 4:11 AM EDT PHOSPHORUS Add-on 10/11/2023 4:11 AM EDT MAGNESIUM Add-on 10/11/2023 4:11 AM EDT LIPID PANEL WITHOUT DIRECT LDL Routine 10/11/2023 4:11 AM EDT HEMOGLOBIN A1C Routine 10/11/2023 4:10 AM EDT HEPARIN, UNFRACTIONATED STAT 10/11/19 4:10 AM EDT ABO/RH STAT 10/11/2023 4:10 AM EDT TYPE AND SCREEN Routine 10/11/2023 4:10 AM EDT PT INR STAT 10/11/2023 4:10 AM EDT APTT STAT 10/11/2023 4:10 AM EDT CBC STAT 10/11/2023 4:10 AM EDT CARDIAC CATHETERIZATION REPORT Routine 10/11/2023 documented in this encounter Results * MAGNESIUM (10/12/2023 7:05 AM EDT) [facility] Magnesium 2.2 1.5 - 2.6 mg/dL 10/12/2023 7:55 AM EDT LABORATORY [facility] Blood Venous blood specimen / Unknown Venipuncture / Unknown 10/12/2023 7:05 AM EDT 10/12/2023 7:27 AM EDT E Pacheco Basilio MD LAB BLOOD [facility] [employer] [facility] [address] [place] [address] * (ABNORMAL) BASIC METABOLIC PANEL (10/12/2023 7:05 AM EDT) BUN 75(H) 6 - 20 mg/dL 10/12/2023 7:55 AM EDT LABORATORY [facility] Creatinine 2.0(H) 0.5 - 1.0 mg/dL 10/12/2023 7:55 AM EDT LAB[facility]ATORY [facility] Estimated Glomerular Filtration Rate 25(L) >=60 mL/min 10/12/2023 7:55 AM EDT LAB[facility]ATORY [facility] Comment:eGFR is calculated b ased on the CKD-EPI 2020 equation Sodium 127(L) 135 - 146 mmol/L 10/12/2023 7:55 AM EDT LABORATORY [facility] Potassium 4.9 3.5 - 5.1 mmol/L 10/12/2023 7:55 AM EDT LAB[facility]ATORY [facility] Chloride 94(L) 98 - 107 mmol/L 10/12/2023 7:55 AM EDT LAB[facility]ATORY [facility] CO2 25 22 - 32 mmol/L 10/12/2023 7:55 AM EDT LAB[facility]ATORY [facility] Anion Gap 8 7 - 15 mmol/L 10/12/2023 7:55 AM EDT LAB[facility]ATORY [facility] Glucose 94 70 - 120 mg/dL 10/12/2023 7:55 AM EDT LAB[facility]ATORY [facility] Calcium 9.3 8.4 - 10.2 mg/dL 10/12/2023 7:55 AM EDT LABORATORY C Blood Venous blood specimen / Unknown Venipuncture / Unknown 10/12/2023 7:05 AM EDT 10/12/2023 7:27 AM EDT E Pacheco Basilio MD [facility] Organization Address City/State/ZIP Co de Phone Number [facility]ORY [facility] [address] [place] [address] * PT INR (10/12/2023 5:23 AM EDT) Prothrombin Time 14.2 11.6 - 15.2 seconds 10/12/2023 6:21 AM EDT LAB[facility]ATORY [facility] INR 1.1 0.8 - 1.2 10/12/2023 6:21 AM EDT LABORATORY C Blood Venous blood specimen / Unknown Venipuncture / Unknown 10/12/2023 5:23 AM EDT 10/12/2023 5:28 AM EDT Narrative LAB[facility]ATORY [facility] - 10/12/2023 6:21 AM EDT Warfarin Therapy INR: 2.0-3.0 conventional anticoagulation INR: 2.5-3.5 high intensity anticoagulation Eben Chatterjeejesse BARAJAS LAB BLOOD ORDERABLES LAB[facility]ORY [facility] [address] [place] [address] * (ABNORMAL) CBC (10/12/2023 5:23 AM EDT) Pathologist [facility] WBC 4.85 4.00 - 10.80 K/uL 10/12/2023 5:42 AM EDT LAB[facility]ATORY [facility] RBC 2.93 3.85 - 5.15 M/uL 10/12/2023 5:42 AM EDT LAB[facility]ATORY [facility] HGB 8.9(L) 12.0 - 15.3 g/dL 10/12/2023 5:42 AM EDT LAB[facility]ATORY [facility] HCT 26.5(L) 36.0 - 45.2 % 10/12/2023 5:42 AM EDT LAB[facility]ATORY [facility] MCV 90.4 81.5 - 97.5 fL 10/12/2023 5:42 AM EDT LAB[facility]ATORY [facility] MCH 30.4 27.0 - 34.0 pg 10/12/2023 5:42 AM EDT LAB[facility]ATORY [facility] MCHC 33.6 32.0 - 36.0 g/dL 10/12/2023 5:42 AM EDT LAB[facility]ATORY [facility] RDW 13.2 11.5 - 15.5 % 10/12/2023 5:42 AM EDT LAB[facility]ATORY [facility] PLT 160 140 - 400 K/uL 10/12/2023 5:42 AM EDT LAB[facility]ATORY [facility] MPV 10.2 6.6 - 11.1 fL 10/12/2023 5:42 AM EDT LABORATORY GM nRBCs 0 <=0 /100 WBCs 10/12/2023 5:42 AM EDT LAB[facility]ATORY [facility] Blood Venous blood specimen / Unknown Venipuncture / Unknown 10/12/2023 5:23 AM EDT 10/12/2023 5:28 AM EDT Eben Damon DO LAB BLOOD ORDERABLES [facility] [address] [place] [address] * ECHO, TTE, LIMITED (10/11/2023 3:58 PM EDT) Pathologist [facility] LEFT VENTRICULAR EJECTION FRACTION 60 % [facility] 10/11/2023 3:29 PM EDT Ebencarline Chatterjeejesse DO ECHOCARDIOLOGY Performing Organization Address City/[facility]/ZIP Co de Phone Number [facility] * PHOSPHORUS (10/11/2023 4:11 AM EDT) Pathologist [facility] Phosphorus 3.5 2.5 - 4.8 mg/dL 10/11/2023 5:00 AM EDT LAB[facility]ORY [facility] Blood Venous blood specimen / Unknown Venipuncture / Unknown 10/11/2023 4:11 AM EDT 10/11/2023 4:17 AM EDT Eben Damon DO LAB BLOOD ORDERABLES Performing Organization Address [facility] Co de Phone Number [facility]ORY [facility] [address] [place] [address] * MAGNESIUM (10/11/2023 4:11 AM EDT) Pathologist [facility] Magnesium 1.7 1.5 - 2.6 mg/dL 10/11/2023 5:00 AM EDT [facility] Blood Venous blood specimen / Unknown Venipuncture / Unknown 10/11/2023 4:11 AM EDT 10/11/2023 4:17 AM EDT Eben Damon DO LAB BLOOD ORDERABLES Performing Organization Address City/[facility]/ZIP Co de Phone Number [facility] [address] [place] [address] * LIPID PANEL WITHOUT DIRECT LDL (10/11/2023 4:11 AM EDT) Triglycerides 64 <=174 mg/dL 10/11/2023 4:48 AM EDT LAB[facility]ORY [facility] Comment: Triglyceride Reference Ranges (mg/dL): <150 Acceptable 150-174 Borderline high 175-499 High >=500 Very high Cholesterol 125 <200 mg/dL 10/11/2023 4:48 AM EDT LAB[facility]ORY [facility] Comment: Total Cholesterol Reference Ranges (mg/dL): <200 Desirable 200-239 Borderline high >=240 High HDL Cholesterol 73 >49 mg/dL 4:48 AM EDT LAB[facility]ORY [facility] Comment: HDL Cholesterol Reference Ranges (mg/dL): >=60 High (Desirable) <50 Low (Undesirable) For Females <40 Low (Undesirable) For Males Non-HDL Cholesterol 52 <=159 mg/dL 10/11/2023 4:48 AM EDT LAB[facility]ORY [facility] Comment: Non-HDL Cholesterol Reference Range (mg/dL): <100 Target level for high risk ASCVD patient <130 Optimal for general population 130-159 Near optimal for general population 160-189 Borderline High 190-219 High >=220 Very High LDL Cholesterol 39 <=129 mg/dL 10/11/2023 4:48 AM EDT LAB[facility]ATORY [facility] Comment: LDL Cholesterol Reference Ranges (mg/dL): <70 Target level for high risk ASCVD patient <100 Optimal for general population 100-129 Near optimal for general population 130-159 Borderline high 160-189 High >=190 Very high Blood Venous blood specimen / Unknown Venipuncture / Unknown 10/11/2023 4:11 AM EDT 10/11/2023 4:17 AM EDT Olu Reynoso MD LAB BLOOD ORDERABLES [facility] [address] [place] [address] * (ABNORMAL) BASIC METABOLIC PANEL (10/11/2023 4:11 AM EDT) BUN 81(H) 6 - 20 mg/dL 10/11/2023 4:48 AM EDT LAB[facility]ORY [facility] Creatinine 1.8(H) 0.5 - 1.0 mg/dL 10/11/2023 4:48 AM EDT LABORATORY [facility] Estimated Glomerular Filtration Rate 29(L) >=60 mL/min 10/11/2023 4:48 AM EDT LABORATORY [facility] Comment:eGFR is calculated b ased on the CKD-EPI 2020 equation Sodium 127(L) 135 - 146 mmol/L 10/11/2023 4:48 AM EDT LAB[facility]ATORY [facility] Potassium 4.6 3.5 - 5.1 mmol/L 10/11/2023 4:48 AM EDT LAB[facility]ATORY [facility] Chloride 91(L) 98 - 107 mmol/L 10/11/2023 4:48 AM EDT LAB[facility]ATORY [facility] CO2 25 22 - 32 mmol/L 10/11/2023 4:48 AM EDT LAB[facility]ATORY [facility] Anion Gap 11 7 - 15 mmol/L 10/11/2023 4:48 AM EDT LAB[facility]ATORY [facility] Glucose 106 70 - 120 mg/dL 10/11/2023 4:48 AM EDT LAB[facility]ATORY [facility] Calcium 9.7 8.4 - 10.2 mg/dL 10/11/2023 4:48 AM EDT LAB[facility]ATORY [facility] Blood Venous blood specimen / Unknown Venipuncture / Unknown 10/11/2023 4:11 AM EDT 10/11/2023 4:17 AM EDT Olu Reynoso MD LAB BLOOD ORDERABLES [facility] [address] [place] [address] * ABO/RH (10/11/2023 4:10 AM EDT) ABO O 10/11/2023 6:43 AM EDT LAB[facility]ORY [facility] BLOOD BANK Rh Positive 10/11/2023 6:43 AM EDT LAB[facility]ORY [facility] BLOOD BANK Blood Venous blood specimen / Unknown Venipuncture / Unknown 10/11/2023 4:10 AM EDT 10/11/2023 4:17 AM EDT Olu Reynoso MD LAB BLOOD BANK TEST ORDERABLES LAB[facility] BLOOD BANK [address] [place] [address] * TYPE AND SCREEN (10/11/2023 4:10 AM EDT) ABO O 10/11/2023 6:09 AM EDT LAB[facility]ORY [facility] BLOOD BANK Rh Positive 10/11/2023 6:09 AM EDT LAB[facility]ORY [facility] BLOOD BANK Red Blood Cell Antibody Screen Negative 10/11/2023 6:09 AM EDT LAB[facility]ORY [facility] BLOOD BANK Specimen Expiration Date 10/14/2023 23:59 10/11/2023 6:09 AM EDT LAB[facility]ORY [facility] BLOOD BANK Blood Venous blood specimen / Unknown Venipuncture / Unknown 10/11/2023 4:10 AM EDT 10/11/2023 4:17 AM EDT Olu Reynoso MD LAB BLOOD BANK TEST ORDERABLES Performing Organization Address [facility] Phone Number [facility] BLOOD [facility] [address] [place] [address] * HEMOGLOBIN A1C (10/11/2023 4:10 AM EDT) Pathologist [facility] Hemoglobin A1C 5.5 4.0 - 5.6 % 10/11/2023 5:02 AM EDT LAB[facility]ATORY [facility] Comment:The use of HbA1c to monitor glycemic status is based on normal hemoglobin and HbA composition. This test should not be used in patients with abnormal hemoglobin that affects the half life of the red blood cell or the in vivo glycation rates. Estimated Average Glucose 111 <126 mg/dL 10/11/2023 5:02 AM EDT LAB[facility]ATORY [facility] Blood Venous blood specimen / Unknown Venipuncture / Unknown 10/11/2023 4:10 AM EDT 10/11/2023 4:17 AM EDT Olu Reynoso MD LAB BLOOD ORDERABLES Performing Organization Address [facility] Co de Phone Number LAB[facility]ATORY [facility] [address] [place] [address] * (ABNORMAL) HEPARIN, UNFRACTIONATED (10/11/2023 4:10 AM EDT) Pathologist [facility] Heparin, Unfractionated 0.22(H) <0.10 IU/mL 10/11/2023 4:33 AM EDT LABORATORY [facility] Comment: Unfractionated therapeutic ranges for Anti Xa activity: For Cardiac/Neurologic treatment: 0.3 to 0.6 IU/mL. For treatment of DVT or Pulmonary Embolism: 0.3 to 0.7 IU/mL. Blood Venous blood specimen / Unknown Venipuncture / Unknown 10/11/2023 4:10 AM EDT 10/11/2023 4:17 AM EDT Eben Evaristo Damon DO LAB BLOOD ORDERABLES [facility] [address] [place] [address] * (ABNORMAL) CBC (10/11/2023 4:10 AM EDT) WBC 5.49 4.00 - 10.80 K/uL 10/11/2023 4:28 AM EDT LAB[facility]ATORY [facility] RBC 3.55 3.85 - 5.15 M/uL 10/11/2023 4:28 AM EDT LAB[facility]ATORY [facility] HGB 10.7(L) 12.0 - 15.3 g/dL 10/11/2023 4:28 AM EDT LAB[facility]ATORY [facility] HCT 32.2(L) 36.0 - 45.2 % 10/11/2023 4:28 AM EDT LAB[facility]ATORY [facility] MCV 90.7 81.5 - 97.5 fL 10/11/2023 4:28 AM EDT LAB[facility]ATORY [facility] MCH 30.1 27.0 - 34.0 pg 10/11/2023 4:28 AM EDT LAB[facility]ATORY [facility] MCHC 33.2 32.0 - 36.0 g/dL 10/11/2023 4:28 AM EDT LAB[facility]ATORY [facility] RDW 13.0 11.5 - 15.5 % 10/11/2023 4:28 AM EDT LAB[facility]ATORY [facility] PLT 201 140 - 400 K/uL 10/11/2023 4:28 AM EDT LAB[facility]ORY [facility] MPV 10.8 6.6 - 11.1 fL 10/11/2023 4:28 AM EDT LAB[facility]ATORY [facility] nRBCs 0 <=0 /100 WBCs 10/11/2023 4:28 AM EDT LABORATORY C Blood Venous blood specimen / Unknown Venipuncture / Unknown 10/11/2023 4:10 AM EDT 10/11/2023 4:17 AM EDT Ebencarline Damon DO LAB BLOOD ORDERABLES Performing Organization Address [facility] Co de Phone Number [facility]ORY [facility] [address] [place] [address] * (ABNORMAL) APTT (10/11/2023 4:10 AM EDT) aPTT 58(H) 21 - 38 seconds 10/11/2023 4:34 AM EDT LAB[facility] Blood Venous blood specimen / Unknown Venipuncture / Unknown 10/11/2023 4:10 AM EDT 10/11/2023 4:17 AM EDT Narrative LABORATORY [facility] [facility] - 10/11/2023 4:34 AM EDT Anticoagulation may affect testing. Refer to [employer] Test Catalog for a list of effects. Ebencarline Damon DO LAB BLOOD ORDERABLES Performing Organization Address [facility] Co de Phone Number [facility]ORY [facility] [address] [place] [address] * PT INR (10/11/2023 4:10 AM EDT) Prothrombin Time 14.0 11.6 - 15.2 seconds 10/11/2023 4:33 AM EDT LAB[facility]ORY [facility] INR 1.1 0.8 - 1.2 10/11/2023 4:33 AM EDT LABORATORY C Blood Venous blood specimen / Unknown Venipuncture / Unknown 10/11/2023 4:10 AM EDT 10/11/2023 4:17 AM EDT Narrative [facility] - 10/11/2023 4:33 AM EDT Warfarin Therapy INR: 2.0-3.0 conventional anticoagulation INR: 2.5-3.5 high intensity anticoagulation Eben Damon DO LAB BLOOD ORDERABLES LAB[facility] [address] [place] [address] * CARDIAC CATHETERIZATION REPORT (10/11/2023) DATE OF PROCEDURE 10/11/2023 [facility] DIAGNOSTIC Shyam Collazo MD [facility] CONCLUSIONS * LMCA stent is patent Mild mid LAD disease Mild proximal LCx disease Mild to moderate diffuse RCA disease Valve study: [id number]-[id number] Gradient: 24mmHg Mean Gradient: 36mmHg Right Heart Catheterization Measurements (reference measures in parenthesis) RA = 6 mmHg [0-8 mmHg] RV = 81/7 mmHg [20-30/0-8 mmHg] Unable to traverse into the pulmonary artery, could not obtain the remainder of RHC pressures. Access: Right femoral vein and artery. [facility] CARDIOLOGY PROCEDURES Left Heart Cath + Coronary angiography + Right Heart Cath 0:38-0:52 hours:minutes Sedation [facility] TOTAL CONTRAST VOLUME 70 ml [facility] CARDIOLOGY TOTAL RADIATION 0.21 Gy [facility]ELVINVic[facility] CARDIOLOGY COMPLICATIONS No complication None [facility] CARDIOLOGY 10/11/2023 10/11/2023 4:0 2 PM EDT Gonzalez Cabrera DO CARD CATH Performing Organization Address [facility] Co de Phone Number [facility] documented in this encounter Visit Diagnoses Diagnosis Pulmonary hypertension- Primary Other chronic pulmonary heart diseases Chest pain Chest pain, unspecified Valvular heart disease Endocarditis, valve unspecified, unspecified cause Essential hypertension with goal blood pressure less than 140/90 SIADH (syndrome of inappropriate ADH production) ([facility]) Other disorders of neurohypophysis Lumbar degenerative disc disease Degeneration of lumbar or lumbosacral intervertebral disc Gastroesophageal reflux disease without esophagitis Esophageal reflux Essential hypertension with goal blood pressure less than 140/90 PAD (peripheral artery disease) ([facility]) Peripheral vascular disease, unspecified 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 Hyperlipidemia with target LDL less than 70 Other and unspecified hyperlipidemia S/P primary angioplasty with coronary stent Postsurgical percutaneous transluminal coronary angioplasty status Chronic kidney disease, stage 3b (HCC) Chronic diastolic heart failure (HCC) Chronic diastolic heart failure Hypertensive kidney disease with stage 3b chronic kidney disease COPD with emphysema (HCC) Other emphysema Carotid stenosis, non-symptomatic, bilateral Iron deficiency anemia Iron deficiency anemia, unspecified 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 Given 10/11/2023 11:40 PM EDT 975 mg Given 10/11/2023 1:38 PM EDT 975 mg amLODIPine (Norvasc) tab 7.5 mg 7.5 mg, Oral, Daily(AM), First dose (after last modification) on Sun10/13/23 at 0900, Until Discontinued aspirin enteric coated tab 81 mg 81 mg, Oral, Daily(AM), First dose on Sun10/12/23 at 0900, Until Discontinued Given 10/12/2023 10:24 AM EDT 81 mg atorvaSTATin (Lipitor) tab 20 mg 20 mg, Oral, Daily(AM), First dose on Sun10/11/23 at 0900, Until Discontinued Given 10/12/2023 10:24 AM EDT 20 mg Given 10/11/2023 8:12 AM EDT 20 mg Carvedilol (Coreg) tab 12.5 mg 12.5 mg, Oral, BID (AM/PM MEALS), First dose on Sun10/11/23 at 0800, Until Discontinued, Hold for HR less than 60 or SBP below 100 and notify service if dose is held MUST BE GIVEN WITH MEAL Given 10/12/2023 10:26 AM EDT 12.5 mg Given 10/11/2023 5:20 PM EDT 12.5 mg Given 10/11/2023 8:11 AM EDT 12.5 mg fentaNYL (PF) inj 25 mcg 25 mcg, IV Push, PRN Pain, Severe, Starting on Sun10/11/23 at 1107, Until Sun10/11/23 at 1306, For 2 hours, To be administered in Cardiac Box Car Loader intra-procedure only When given IV Push its recommended that the dose be given over 3 to 5 minutes., Intra-Op Given 10/11/2023 12:13 PM EDT 50 mcg Given 10/11/2023 11:42 AM EDT 25 mcg Given 10/11/2023 11:31 AM EDT 25 mcg hEParin 25,000 units in 250 mL (Xa-Cardiac) infusion Intravenous, at 0-17.94 mL/hr, Start heparin as soon as baseline labs are drawn. Please select this medication from the infusion pump library! Concentration: 100 units/mL Expires 96 hours after spiking on (date) at (hour) , TITRATE, Starting on Sharri 10/11/23 at 0430, Until Sharri 10/11/23 at 1501 Nurse Change 10/11/2023 7:29 AM EDT 12 Units/kg/hr 7.18 mL/hr Rate Verify 10/11/2023 5:44 AM EDT 12 Units/kg/hr 7.17 mL/ hr New Bag 10/11/2023 4:32 AM EDT 12 Units/kg/hr 7.18 mL/h r hydrALAZINE (Apresoline) inj 10 mg 10 mg, IV Push, ONCE, On Sharri 10/11/23 at 1300, For 1 dose, To be administered in Cardiac Box Car Loader intra-procedure., Intra-Op Given 10/11/2023 12:19 PM EDT 10 mg hydrALAZINE (Apresoline) tab 50 mg 50 mg, Oral, TID(AM/NOON/HS), First dose on Sharri 10/11/23 at 2200, Until Discontinued, Hold for SBP below 100 and notify service if dose is held Given 10/12/2023 12:14 PM EDT 50 mg Given 10/12/2023 5:11 AM EDT 50 mg Given 10/11/2023 9:21 PM EDT 50 mg Ioversol (Optiray 350) 74 % inj 70 mL 70 mL, Intracoronary, ONCE, On Sharri 10/11/23 at 1300, For 1 dose, Intra-Op Given 10/11/2023 12:25 PM EDT 70 mL losartan (Cozaar) tab 50 mg 50 mg, Oral, Daily(AM), First dose on Sun10/12/23 at 0900, Until Discontinued Given 10/12/2023 10:24 AM EDT 50 mg magnesium sulfate 1 g in d5w 100mL LOCKED DOSE 1 g, IV Piggyback, Q1H, 4 doses, First dose on Sun10/11/23 at 0700, Last dose on Sun10/11/23 at 1000, Administer over 60 Minutes, Total dose is 2g New Bag 10/11/2023 9:42 AM EDT 1 g 100 mL/hr New Bag 10/11/2023 8:09 AM EDT 1 g 100 mL/hr midazolam (Versed) 2 MG/2ML inj 0.5 mg 0.5 mg, IV Push, PRN Anxiety, Starting on Sun10/11/23 at 1107, Until Sun10/11/23 at 1306, For 2 hours, To be administered in Cardiac Box Car Loader intra-procedure only, Intra-Op Given 10/11/2023 11:42 AM EDT 0.5 mg Given 10/11/2023 11:31 AM EDT 0.5 mg omeprazole (PriLOSEC) cap 20 mg 20 mg, Oral, Daily(AM), First dose on Sun10/11/23 at 0900, Until Discontinued, This med should NOT be Crushed or Chewed Given 10/12/2023 10:24 AM EDT 20 mg Given 10/11/2023 8:12 AM EDT 20 mg oxyCODONE (Oxy IR) tab 5 mg 5 mg, Oral, Q6H PRN Pain, Severe, Starting on Sun10/11/23 at 0515, Until Sun10/12/23 at 1714 Given 10/12/2023 5: 20 AM EDT 5 mg Given 10/11/2023 2:46 PM EDT 5 mg Given 10/11/2023 5:42 AM EDT 5 mg Torsemide (Demadex) tab 20 mg 20 mg, Oral, Daily(AM), First dose on Sun10/12/23 at 0900, Until Discontinued Given 10/12/2023 10:24 AM EDT 20 mg documented in this encounter Active and Recently Administered Medications Times are shown in EDT. Scheduled Medication Order 10/10/2023 10/11/2023 10/12/2023 amLODIPine (Norvasc) tab 7.5 mg 7.5 mg, Oral, Daily(AM), First dose (after last modification) on Sun10/13/23 at 0900, Until Discontinued aspirin enteric coated tab 81 mg 81 mg, Oral, Daily(AM), First dose on Sun10/12/23 at 0900, Until Discontinued 1024 (Given - Provid er: MATY Gill) atorvaSTATin (Lipitor) tab 20 mg 20 mg, Oral, Daily(AM), First dose on Sun10/11/23 at 0900, Until Discontinued 0812 (Given - Provider: MATY Gill) 1024 (Given - Provider: MATY Gill) Carvedilol (Coreg) tab 12.5 mg 12.5 mg, Oral, BID (AM/PM MEALS), First dose on Sun10/11/23 at 0800, Until Discontinued, Hold for HR less than 60 or SBP below 100 and notify service if dose is held MUST BE GIVEN WITH MEAL 0811 (Given - Provider: MATY Gill)1720 (Given - Provider: Asiya Snowden RN) 1026 (Given - Provider: MATY Gill) hydrALAZINE (Apresoline) inj 10 mg (COMPLETED) 10 mg, IV Push, ONCE, On Sun10/11/23 at 1300, For 1 dose, To be administered in Cardiac Box Car Loader intra-procedure., Intra-Op 1219 (Given - Provider: Melina Todd RN)1300 (OR/Procedure - Provider: MATY Gill) hydrALAZINE (Apresoline) tab 50 mg 50 mg, Oral, TID(AM/NOON/HS), First dose on Sun10/11/23 at 2200, Until Discontinued, Hold for SBP below 100 and notify service if dose is held 2120 (Given - Provider: Henrietta Crhistiansen RN) 05 (Given - Provider: Henrietta Christiansen RN)1214 (Given - Provider: MATY Gill) Ioversol (Optiray 350) 74 % inj 70 mL (COMPLETED) 70 mL, Intracoronary, ONCE, On Sun10/11/23 at 1300, For 1 dose, Intra-Op 1225 (Given - Provider: Ary Gamez, [facility]) losartan (Cozaar) tab 50 mg 50 mg, Oral, Daily(AM), First dose on Sun10/12/23 at 0900, Until Discontinued 1024 (Given - Provid er: MATY Gill) magnesium sulfate 1 g in d5w 100mL LOCKED DOSE 1 g, IV Piggyback, Q1H, 4 doses, First dose on Sun10/11/23 at 0700, Last dose on Sun10/11/23 at 1000, Administer over 60 Minutes, Total dose is 2g 0809 (New Bag - Provider: MATY Gill)0900 (OR/Procedure - Provider: MATY Gill)0942 (New Bag - Provider: MATY Gill)1000 (OR/Procedure - Provider: MATY Gill) omeprazole (PriLOSEC) cap 20 mg 20 mg, Oral, Daily(AM), First dose on Sun10/11/23 at 0900, Until Discontinued, This med should NOT be Crushed or Chewed 0812 (Given - Provider: MATY Gill) 1024 (Given - Provider: MATY Gill) Torsemide (Demadex) tab 20 mg 20 mg, Oral, Daily(AM), First dose on Sun10/12/23 at 0900, Until Discontinued 1024 (Given - Provid er: MATY Gill) Continuous Medication Order 10/10/2023 10/11/2023 10/12/2023 hEParin 25,000 units in 250 mL (Xa-Cardiac) infusion (CANCELED) Intravenous, at 0-17.94 mL/hr, Start heparin as soon as baseline labs are drawn. Please select this medication from the infusion pump library! Concentration: 100 units/mL Expires 96 hours after spiking on (date) at (hour) , TITRATE, Starting on Sun10/11/23 at 0430, Until Sun10/11/23 at 1501 0432 (New Bag - Provider: Nai Velasquez RN)0544 (Rate Verify - Provider: Nai Velasquez RN)0729 (Nurse Change - Provider: Nai Velasquez RN)1501 (Stopped - Provider: Asiya Snowden RN) PRN Medication Order 10/10/2023 10/11/2023 10/12/2023 Acetaminophen (Tylenol) tab 975 mg(Linked Group 1) 975 mg, Oral, Q6H PRN Pain, Mild, Pain, Moderate, Starting on Sharri 10/11/23 at 0515, Until Sun10/12/23 at 1714, Maximum of 4 grams (4000 mg) per day. 0542 (See Alternative - Provider: Nai Velasquez RN)1338 (Given - Provider: Ijeoma Juarez, KHARI)1446 (See Alternative - Provider: MATY Gill)2340 (Given - Provider: Henrietta Christiansen RN) 0520 (See Alternative - Provider: Henrietta Christiansen RN) fentaNYL (PF) inj 25 mcg () 25 mcg, IV Push, PRN Pain, Severe, Starting on Sharri 10/11/23 at 1107, Until Sharri 10/11/23 at 1306, For 2 hours, To be administered in Cardiac Box Car Loader intra-procedure only When given IV Push its recommended that the dose be given over 3 to 5 minutes., Intra-Op 1131 (Given - Provider: Melina Todd RN)1142 (Given - Provider: Melina Todd RN)1213 (Given - Provider: Melina Todd, KHARI) midazolam (Versed) 2 MG/2ML inj 0.5 mg () 0.5 mg, IV Push, PRN Anxiety, Starting on Sharri 10/11/23 at 1107, Until Sharri 10/11/23 at 1306, For 2 hours, To be administered in Cardiac Box Car Loader intra-procedure only, Intra-Op 1131 (Given - Provider: Melina Todd RN)1142 (Given - Provider: Melina Todd RN) oxyCODONE (Oxy IR) tab 5 mg(Linked Group 1) 5 mg, Oral, Q6H PRN Pain, Severe, Starting on Sharri 10/11/23 at 0515, Until Sun10/12/23 at 1714 0542 (Given - Provider: Xianxiu Li, RN)1338 (See Alternative - Provider: Ijeoma Juarez RN)1446 (Given - Provider: MATY Gill)2340 (See Alternative - Provider: Henrietta Christiansen RN) 0520 (Given - Provider: Henrietta Christiansen RN) Linked Groups Order Group 1: Acetaminophen (Tylenol) tab 975 mgJump to med 975 mg, Oral, Q6H PRN Pain, Mild, Pain, Moderate, Starting on Sharri 10/11/23 at 0515, Until Sun10/12/23 at 1714, Maximum of 4 grams (4000 mg) per day. Or oxyCODONE (Oxy IR) tab 5 mgJump to med 5 mg, Oral, Q6H PRN Pain, Severe, Starting on Sharri 10/11/23 at 0515, Until Sun10/12/23 at 1714 documented in this encounter Advance Directives Latest [...] Discussed due to patient's condition Care Teams Parachute Marker Relationship Specialty Start Date End Date Durga Camara DO [address] [place] [address] [place] [address] PCP - General Internal Medicine 03/12/17 documented as of this encounter
--- OUTSIDE RECORDS SUMMARY | 2023-10-19 08:47 | External Medical Summary | Summary of Care ---
Author Name Unknown Organization [facility] Address [address] [place] [address] Phone [phone] Care Team Providers Care Plaster Patternmaker Name Role Phone Jazzy Appiah Primary Care Provider [phone] Encounter Details Date Type Department Care Team (Late st Contact Info) Description 10/12/2023 Population Health External Data Unspecified Department Allergies Active Allergy Reactions Criticality Noted Date [...] tabs twice daily for constipation 0 07/11/2013 Suspended CRANBERRY PLUS VITAMIN C 140-100-3 MG-MG-UNIT PO CAPS four tablets by mouth daily 0 Suspended Cyanocobalamin (B-12) 1000 MCG CapsuleIndications: B12 deficiency Take 1 Capsule by mouth in the morning. 0 11/13/2018 Suspended Ascorbic Acid (VITAMIN C) 1000 MG [...] in 15 minutes. 100 Tab 11 04/14/2020 Suspended Vitamin B6 50 MG Oral Tablet [...] Suspended Losartan Potassium 50 MG Oral Tablet (Cozaar)Indications :Chronic kidney disease, stage 3b (HCC) Take 1 Tablet (50 mg) by mouth in the morning. 180 Tablet 1 06/30/2022 Suspended Additional Information Torsemide 10 MG Oral Tablet (Demadex)Indication s:Essential hypertension with goal blood pressure less than 140/90 TAKE 1 TABLET BY MOUTH ONCE DAILY IN THE MORNING MAY TAKE 1 EXTRA TORSEMIDE IF WEIGHT GAIN OF 3-4 LBS OVERNIGHT 120 Tablet 3 11/20/2022 Suspended Additional Information Patient taking differently: 20 mg MWF, 10 mg all other days, Reported on 09/14/2023 amLODIPine Besylate 5 MG Oral Tablet (Norvasc)Indication s:Essential hypertension with goal blood pressure less than 140/90 Take 1 Tablet by mouth in the morning. 90 Tablet 1 03/06/2023 Suspended Additional Information Atorvastatin Calcium 20 MG Oral Tablet (Lipitor)Indication s:Hyperlipidemia with target LDL less than 70 Take 1 Tablet by mouth in the morning. 90 Tablet 1 03/06/2023 Suspended Additional Information Omeprazole 20 MG Oral Capsule Delayed Release (PriLOSEC) Take 1 Capsule by mouth in the morning. 90 Capsule 0 08/02/2023 Suspended Additional Information Carvedilol 6.25 MG Oral Tablet (Coreg) Take 1 Tablet by mouth in the morning and 1 Tablet before bedtime. 180 Tablet 3 08/08/2023 Suspended Additional Information Spironolactone 25 MG Oral Tablet (Aldactone) Take 0.5 Tablets by mouth in the morning. 30 Tablet 5 09/18/2023 Suspended Additional Information HYDROcodone-Acetami nophen 10-325 MG Oral TabletIndications:G eneralized osteoarthritis,Dege neration of lumbosacral intervertebral disc Take 1 Tablet by mouth 2 times a day as needed for Pain, Severe. 60 Tablet 0 09/27/2023 Suspended Additional Information hydrALAZINE HCl 50 MG Oral Tablet (Apresoline)Indicat ions:Essential hypertension with goal blood pressure less than 140/90 Take 1 Tablet by mouth in the morning and 1 Tablet at noon and 1 Tablet before bedtime. 270 Tablet 3 09/26/2023 Suspended Additional Information Isosorbide Mononitrate ER 30 MG Oral Tablet Extended Release 24 Hour (Imdur)Indications: Aortic valve stenosis, etiology of cardiac valve disease unspecified,Mitral valve disease,Coronary artery disease involving [place] coronary artery of [place] heart without angina pectoris,S/P primary angioplasty with coronary stent,Chronic heart failure with preserved ejection fraction (HCC),HTN, goal below 140/90,Dyslipidemia , goal LDL below 70 Take 1 Tablet by mouth in the morning. 90 Tablet 3 09/28/2023 Suspended Additional Information documented as of this encounter (statuses as [...] stenosis 10/01/2013 Coronary artery disease invo lving [place] coronary artery of [place] heart without angina pectoris 05/20/2013 Hyperlipidemia with [...] 08/21/2014 Overview: Signed 08/21/2014 Nazanin Mayfield MD [facility] as backup Anemia 10/01/2013 04/08/2015 [...] mRNA, LNP-s, No Pre serve, 2-Dose Series ([employer]) 11/20/2020,10/26/2020 Pneumococcal Conjugate Vacc, 13 Valent (Prevnar) [...] 10:30 AM EDT Office Visit Cardiology, [facility] [address] [facility] [address] Pricilla Morse CR[facility] [address] 12/13/2023 2:30 PM EDT Cardiac Studies Cardiac Studies, [facility] [address] [place] [address] 12/19/2023 1:30 PM EDT Office Visit Cardiology, [facility] [address] [place] [address] Shyam Son MD [address] [place] [address] 04/23/2024 3:10 PM EDT Office Visit Family Medicine [address] [place] [facility] [phone] [place] [address] Health Maintenance Due Date Last Done Comments Alpha-1 Antitrypsin 1961 Zoster Vaccines (1 of 2) 1993 DXA Scan 12/04/2020 12/04/2017, 07/24, 07/21/2010, Additional history exists Depression Screening 01/20/2022 01/20/2021 COVID-19 Vaccine (3 - 2023-24 season) 2023 11/20/2020, 10/26/2020 Chawla's Esophagus Surveilance 04/09/2023 04/09/2020, 07/07/2019, 04/10/2012, Additional history exists *NEPHROLOGY REFERRAL DUE TO RESISTANT HTN 09/16/2023 Albumin/Creatinine Ratio 03/06/2024 023, 05/23/2022, 08/15/2021, Additional history exists GFR 04/13/2024 10/12/2023, 09/21, 09/21/2023, Additional history exists CKD PHOS USE SMARTSET 92261 10/10/202409/21, 11/22/2022, 11/18/2021, Additional history exists CKD HGB USE SMARTSET 51227 10/11/202410/11, 10/11/2023, 09/14/2023, Additional history exists O2 [...] this encounter Medical Devices Implanted Type Area Fruit Harvest Worker Device Identifier Shelf Expiration Date Model / Serial / Lot Cath Thermodilution 6fr - [id number] Implanted:Qty: 1 on 05/31/2022 by Yoli Rocha MD at [facility] [employer] [id number] 01/30/2024 [id number] / / [id number] Stent Synergy Xd Mr 4.09i47il - [id number] Implanted:Qty: 1 on 07/27/2022 by Yoli Rocha MD at [facility] [employer] 11/08/2023 [id number] / / [id number] Cath Thermodilution 6fr - [id number] Implanted:Qty: 1 on 10/11/2023 by Shyam Son MD at [facility] [employer] [id number] 12/28/2024 [id number] / / [id number] documented as of this encounter Advance Directives [...] Discussed due to patient's condition Care Teams Plaster Patternmaker Relationship Specialty Start Date End Date Jazzy Appiah DO [address] [place] [address] HOME [place] [phone] PCP - General Internal Medicine 03/12/17 documented as of this encounter
--- OUTSIDE RECORDS SUMMARY | 2023-10-19 08:47 | External Medical Summary ---
Author Name Unknown Address Unknown Organization [id number]:[facility] - [address] [place] [address] Laboratory Report Ordering Provider Test Date Status E,CAITIE 10/12/2023 07:05:00 Final Observation Date Value Abnormality Reference (Units ) Status BUN 10/12/2023 07:05:00 75 Above high normal 6-20 (mg/dL) Final Creatinine 10/12/2023 07:05:00 2.0 Above high normal 0.5-1.0 (mg/dL) Final Glomerular filtration rate/1.73 sq M.predicted [Volume Rate/Area] in Serum, Plasma or Blood by Creatinine-based formula (CKD-EPI) 10/12/2023 07:05:00 25 Below low normal >=60 (mL/min) Final eGFR is calculated based on the CKD-EPI 2020 equation Sodium 10/12/2023 07:05:00 127 Below low normal 135 -146 (mmol/L) Final Potassium 10/12/2023 07:05:00 4.9 3.5-5.1 (m mol/L) Final Cl 10/12/2023 07:05:00 94 Below low normal 98- 107 (mmol/L) Final CO2 10/12/2023 07:05:00 25 22-32 (mmo l/L) Final Anion gap 10/12/2023 07:05:00 8 7-15 (mmol /L) Final Glucose 10/12/2023 07:05:00 94 70-120 (mg /dL) Final Calcium 10/12/2023 07:05:00 9.3 8.4-10.2 ( mg/dL) Final Performing Location [facility] - [address] [place] [address]
--- OUTSIDE RECORDS SUMMARY | 2023-10-19 08:47 | External Medical Summary ---
Author Name Unknown Address Unknown Organization K01:[facility] - [address] [place] [address] Laboratory Report Ordering Provider Test Date Status E,CAITIE 10/12/2023 07:05:00 Final Observation Date Value Abnormality Reference (Units ) Status Magnesium 10/12/2023 07:05:00 2.2 1.5-2.6 (m g/dL) Final Performing Location [facility] - [address] [facility] [address]
--- OUTSIDE RECORDS SUMMARY | 2023-10-19 08:47 | External Medical Summary ---
Author Name Unknown Address Unknown Organization K01:[facility] - [address] [place] [address] Laboratory Report Ordering Provider Test Date Status KERRY BORJA 10/12/2023 05:23:00 Final Warfarin Therapy
INR: 2 .0-3.0 conventional anticoagulation
INR: 2.5- 3.5 high intensity anticoagulation Observation Date Value Abnormality Reference (Units ) Status PT 10/12/2023 05:23:00 14.2 11.6-15.2 (seconds) Final INR 10/12/2023 05:23:00 1.1 0.8-1.2 Final Performing Location [facility] - [address] [place] [address]
--- OUTSIDE RECORDS SUMMARY | 2023-10-19 08:47 | External Medical Summary | Summary of Care ---
Author Name Unknown Organization [facility] Address [address] [place] [address] Phone [phone] Care Team Providers Care Alarm Mechanic Name Role Phone Jazzy Appiah DO Primary Care Provider [phone] Encounter Details Date Type Department Care Team (Latest Contact Info) Description 10/09/2023 6:40 AM EDT - 10/09/2023 11:59 PM EDT Hospital Encounter Radiology Film File [address] [place] [address] Arrived Discharge Disposition: Home - Self Care Allergies Active Allergy Reactions Criticality Noted Date Comments Ramipril Unknown Low 01/08/2014 Gabapentin Edema Other Medium 03/30/2011 Attempted x 3 with resultant fatigue and peripheral edema Oxycodone 06/09/2019 Makes me go crazy documented as of this encounter (statuses as of 10/11/2023) Medications Medication Sig Dispensed Refills Start Date [...] disease unspecified,Mitral valve disease,Coronary artery disease involving [place] coronary artery of [place] heart without angina pectoris,S/P primary angioplasty with coronary stent,Chronic heart failure with preserved ejection fraction (HCC),HTN, goal below 140/90,Dyslipidemia , goal LDL below 70 Take 1 Tablet by mouth in the morning. 90 Tablet 3 09/28/2023 Suspended Additional Information documented as of this encounter (statuses as of 10/11/2023) Active Problems Problem Noted Date Diagnosed Date [...] stenosis 10/01/2013 Coronary artery disease invo lving [place] coronary artery of [place] heart without angina pectoris 05/20/2013 Hyperlipidemia with target LDL less than 70 08/23 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 02/28/2012 GENERAL OSTEOARTHROSIS Hiatal hernia documented as of this encounter (statuses as of 10/11/2023) Resolved Problems Problem Noted Date Diagnosed Date Resolved Date Hypertensive kidney disease with chronic kidney disease stage III 11/04/2018 06/03/2020 Overview: Per CKD protocol Carpal tunnel syndrome of left wrist 11/11/2015 09/18/2017 Tubular adenoma of colon 04/14/2015 Benign esophageal stricture 03/15/2015 09/18/2017 MEDICATION USE AGREEMENT 08/21/2014 Overview: Signed 08/21/2014 Nazanin Mayfield MD [facility] as backup Anemia 10/01/2013 04/08/2015 [...] as of this encounter (statuses as of 10/11/2023) Immunizations Name Administration Dates Next Due COVID-19 [...] 10/19/2023 10:30 AM EDT [facility] [address] Pricilla Morse CRNP [address] [facility] [place] [address] 12/13/2023 2:30 PM EDT Cardiac Studies [address] [place] [address] 12/19/2023 1:30 PM EDT Office Visit Card[facility], [facility] [address] Shyam Son MD [address] [place] [address] 04/23/2024 3:10 PM EDT Office Visit Family Medicine [address] [place] [phone] [address] [place] [address] Scheduled Procedures Name Priority Associated Diagnoses Date/Ti me CORONARY ANGIOGRAPHY W/RIGHT+LEFT CATH Severe aortic stenosis 10/11/2023 11:09 AM EDT Health Maintenance Due Date Last [...] 023, 05/23/2022, 08/15/2021, Additional history exists GFR 04/12/2024 10/11/2023, 03/0 07/2023, 09/14/2023, Additional history exists CKD HGB USE SMARTSET 89638 10/10/202410/10, 09/14/2023, 03/06/2023, Additional history exists CKD PHOS USE SMARTSET 08607 10/10/202409/21, 11/22/2022, 11/18/2021, Additional history exists O2 ASSESSMENT COMPLETED IN PAST YEAR FOR COPD 10/10/2024 10/11/2023 DTaP,Tdap,and Td Vaccines (2 - Td or [...] this encounter Medical Devices Implanted Type Area Adoption Worker Device Identifier Shelf Expiration Date Model / Serial / Lot Cath Thermodilution 6fr - [id number] Implanted:Qty: 1 on 05/31/2022 by Yoli Rocha MD at [facility] [employer] [id number] 01/30/2024 [id number] / / [id number] Stent Synergy Xd Mr [id number] - [id number] Implanted:Qty: 1 on 07/27/2022 by Yoli Rocha MD at [facility] [employer] 11/08/2023 [id number] / / [id number] documented as of this encounter Procedures Procedure Name Priority Date/Time Associated Diagnosis Comments RADIOLOGY EXAM - CT (IMAGES ONLY, NO REPORT) Routine 10/09/2023 6:40 AM EDT documented in this encounter Results * RADIOLOGY EXAM - CT (IMAGES ONLY, NO REPORT) (10/09/2023 6:40 AM EDT) 10/09/2023 6:36 AM EDT Narrative Scheduling, Silent - 10/10/2023 2:49 PM EDT This is an imaging study not interpreted or resulted by a [employer] or [employer] contracted radiologist. Pedro Luis Walker MD RAD CT documented in this encounter Advance Directives Latest [...] Discussed due to patient's condition Care Teams Alarm Mechanic Relationship Specialty Start Date End Date Jazzy Appiah DO [address] [place] [address] [place] [address] PCP - General Internal Medicine 03/12/17 documented as of this encounter
--- OUTSIDE RECORDS SUMMARY | 2023-10-19 08:47 | External Medical Summary | Summary of Care ---
Author Name Unknown Organization [facility] Address [address] [place] [address] Phone [phone] Care Team Providers Care Wastewater Process Engineer Name Role Phone Jazzy Appiah DO Primary Care Provider [phone] Encounter Details Date Type Department Care Team (Latest Contact Info) Description 10/07/2023 3:35 PM EDT - 10/07/2023 11:59 PM EDT Hospital Encounter Radiology Film File [address] [place] [address] Discharge Disposition: Home - Self [...] disease unspecified,Mitral valve disease,Coronary artery disease involving [place] coronary artery of [place] heart without angina pectoris,S/P primary angioplasty with [...] stenosis 10/01/2013 Coronary artery disease invo lving [place] coronary artery of [place] heart without angina pectoris 05/20/2013 Hyperlipidemia with [...] 08/21/2014 Overview: Signed 08/21/2014 Nazanin Mayfield MD [facility] as backup Anemia 10/01/2013 04/08/2015 COPD, [...] 10/19/2023 10:30 AM EDT Office Visit Cardiology, [facility] [address] [facility] [place] [address] Pricilla Morse CRNP [address] [facility] [place] [address] 12/13/2023 2:30 PM EDT Cardiac Studies Cardiac Studies, [facility] [address] [facility] [place] [address] 12/19/2023 1:30 PM EDT Office Visit Cardiology, [facility] [address] [facility] [place] [address] Shyam Son MD [address] [place] [address] 04/23/2024 3:10 PM EDT Office Visit Family Medicine [address] [place] [phone] Jazzy App[address] [place] [address] Scheduled Procedures Name Priority Associated Diagnoses Date/Ti mi CORONARY ANGIOGRAPHY W/RIGHT+LEFT CATH Severe aortic stenosis [...] Additional history exists CKD HGB USE SMARTSET 81161 10/10/202410/10, 09/14/2023, 03/06/2023, Additional history exists CKD PHOS USE SMARTSET 24833 10/10/202409/21, 11/22/2022, 11/18/2021, Additional history exists O2 [...] this encounter Medical Devices Implanted Type Area Research Physiologist Device Identifier Shelf Expiration Date Model / Serial / Lot Cath Thermodilution 6fr - [id number] Implanted:Qty: 1 on 05/31/2022 by Yoli Rocha MD at [facility] [employer] [id number] 01/30/2024 [id number] / / [id number] Stent [employer] Xd Mr [id number] - [id number] Implanted:Qty: 1 on 07/27/2022 by Yoli Rocha MD at [facility] [employer] 11/08/2023 [id number] / / [id number] Cath Thermodilution 6fr - [id number] Implanted:Qty: 1 on 10/11/2023 by Shyam Son MD at [facility] [employer] [id number] 12/28/2024 [id number] / / [id number] documented as of this encounter Procedures Procedure Name Priority Date/Time Associated Diagnosis Comments RADIOLOGY EXAM - GENERAL RAD (IMAGES ONLY,NO REPORT) Routine 10/07/2023 3:35 PM EDT documented in this encounter Results * RADIOLOGY EXAM - GENERAL RAD (IMAGES ONLY,NO REPORT) (10/07/2023 3:35 PM EDT) 10/07/2023 3:35 PM EDT Narrative Scheduling, Silent - 10/10/2023 2:47 PM EDT This is an imaging study not interpreted or resulted by a [facility] or [facility] contracted radiologist. Pedro Luis Walker MD RADI OLOGY (RAD GENERAL) documented in this encounter Advance Directives Latest [...] Discussed due to patient's condition Care Teams Wastewater Process Engineer Relationship Specialty Start Date End Date Jazzy Appiah DO [address] [place] [address] [place] [address] PCP - General Internal Medicine 03/12/17 documented as of this encounter
--- OUTSIDE RECORDS SUMMARY | 2023-10-19 08:47 | External Medical Summary | Summary of Care ---
Author Name Unknown Organization [facility] Address [address] [place] [address] Phone [phone] Care Team Providers Care Senior Care Assistant Name Role Phone Appiah Jazzy Felix Primary Care Provider [phone] Encounter Details Date Type Department Care Team (Late st Contact Info) Description 10/11/2023 CardioDiagnostic Study Cardiology [facility] [address] [place] [address] Pedro Luis Acharya MD [address] [place] [address] EKG Report Allergies Active Allergy Reactions Criticality Noted Date [...] disease unspecified,Mitral valve disease,Coronary artery disease involving saxman coronary artery of saxman heart without angina pectoris,S/P primary angioplasty with [...] stenosis 10/01/2013 Coronary artery disease invo lving saxman [...] 08/21/2014 Nazanin Mayfield MD [facility] as backup Anemia 10/01/2013 04/08/2015 COPD, mild [...] No 10/11/2023 documented as of this encounter Procedure Notes * Steven De Luna MD - 10/11/2023 4:02 AM EDTAssociated Order(s): EKG REPORT REASON FOR STUDY: admission CONCLUSIONS: Poor baseline Undetermined rhythm - ? sinus bradycardia Left axis deviation Nonspecific intraventricular conduction delay Possible LVH Cannot rule out Septal infarct , age undetermined Abnormal ECG When compared with ECG of 28-Sep-2023 15:38, Probably no significant change Ventricular Rate: 57 QRS Duration: 124 QT/QTc: 438/426 ms P-R-T Shreve: 0 : -32 : 95 degrees documented in this encounter Plan of Treatment Upcoming Encounters Date Type Department Care Team (Late st Contact Info) Description 10/19/2023 10:30 AM EDT Office Visit Cardiology, [facility] [address] [place] [address] Pricilla Morse CRNP [address] [place] [address] 12/13/2023 2:30 PM EDT Cardiac Studies [facility], [facility] [place] [address] 12/19/2023 1:30 PM EDT Office Visit Cardiology, [facility] [address] [place] [phone] Shyam Son MD [address] [facility] [place] [address] 04/23/2024 3:10 PM EDT Office Visit [address] [place] [phone] Jazzy Appiah[address] [place] [address] Health Maintenance Due Date Last Done Comments [...] Additional history exists CKD PHOS USE SMARTSET 15295 10/10/202409/21, 11/22/2022, 11/18/2021, Additional history exists CKD HGB USE SMARTSET 75893 10/11/202410/11, 10/11/2023, 09/14/2023, Additional history exists O2 [...] this encounter Medical Devices Implanted Type Area Fire Officer Device Identifier Shelf Expiration Date Model / Serial / Lot Cath Thermodilution 6fr - [id number] Implanted:Qty: 1 on 05/31/2022 by Yoli Rocha MD at [facility] [employer] [id number] 01/30/2024 [id number] / / [id number] Stent Synergy Xd Mr [id number] - [id number] Implanted:Qty: 1 on 07/27/2022 by Yoli Rocha MD at [facility] [employer] 11/08/2023 [id number] / / [id number] Cath Thermodilution 6fr - [id number] Implanted:Qty: 1 on 10/11/2023 by Shyam Son MD at [facility] [employer] [id number] 12/28/2024 [id number] / / [id number] documented as of this encounter Procedures Procedure Name Priority Date/Time Associated Diagnosis Comments EKG REPORT 10/11/2023 4:02 AM EDT documented in this encounter Results * EKG REPORT (10/11/2023 4:02 AM EDT) 10/11/2023 4:02 AM EDT Narrative Procedure Note Steven De Luna MD - 10/11/2023 4:02 AM EDT REASON FOR STUDY: admission CONCLUSIONS: Poor baseline Undetermined rhythm - ? sinus bradycardia Left axis deviation Nonspecific intraventricular conduction delay Possible LVH Cannot rule out Septal infarct , age undetermined Abnormal ECG When compared with ECG of 28-Sep-2023 15:38, Probably no significant change Ventricular Rate: 57 QRS Duration: 124 QT/QTc: 438/426 ms P-R-T Shreve: 0 : -32 : 95 degrees Pedro Luis Walker MD EKG documented in this encounter Advance Directives Latest [...] Discussed due to patient's condition Care Teams Senior Care Assistant Relationship Specialty Start Date End Date Jazzy Appiah DO [address] [place] [address] [place] [address] PCP - General Internal Medicine 03/12/17 documented as of this encounter
--- OUTSIDE RECORDS SUMMARY | 2023-10-19 08:47 | External Medical Summary ---
Author Name Unknown Address Unknown Organization [id number]:LABORATORY [facility] - [address] [place] [address] [place] [address] Laboratory Report Ordering Provider Test Date Status KERRY BORJA 10/12/2023 05:23:00 Final Observation Date Value Abnormality Reference (Units ) Status WBC, Total 10/12/2023 05:23:00 4.85 4.00-10.80 (K/uL) Final RBC 10/12/2023 05:23:00 2.93 3.85-5.15 (M/uL) Final Hemoglobin 10/12/2023 05:23:00 8.9 Below low normal 12.0-15.3 (g/dL) Final HCT 10/12/2023 05:23:00 26.5 Below low normal 36.0-45.2 (%) Final MCV 10/12/2023 05:23:00 90.4 81.5-97.5 (fL) Final MCH 10/12/2023 05:23:00 30.4 27.0-34.0 (pg) Final MCHC 10/12/2023 05:23:00 33.6 32.0-36.0 (g/dL) Final RDW 10/12/2023 05:23:00 13.2 11.5-15.5 (%) Final Platelets 10/12/2023 05:23:00 160 140-400 (K/uL) Final MPV 10/12/2023 05:23:00 10.2 6.6-11.1 (fL) Final Nucleated erythrocytes/100 leukocytes [Ratio] in Blood by Automated count 10/12/2023 05:23:00 0 <=0 (/100 WBCs) Final Performing Location LABORATORY [facility] - [address] [place] [address]
--- OUTSIDE RECORDS SUMMARY | 2023-10-19 08:48 | External Medical Summary ---
Author Name Unknown Address Unknown Organization [id number]:LABORATORY [facility] - [facility] [address] [place] [address] Laboratory Report Ordering Provider Test Date Status LOKESH STRONG 10/11/2023 04:11:00 Final Observation Date Value Abnormality Reference (Units ) Status BUN 10/11/2023 04:11:00 81 Above high normal 6-20 (mg/dL) Final Creatinine 10/11/2023 04:11:00 1.8 Above high normal 0.5-1.0 (mg/dL) Final Glomerular filtration rate/1.73 sq M.predicted [Volume Rate/Area] in Serum, Plasma or Blood by Creatinine-based formula (CKD-EPI) 10/11/2023 04:11:00 29 Below low normal >=60 (mL/min) Final eGFR is calculated based on the CKD-EPI 2020 equation Sodium 10/11/2023 04:11:00 127 Below low normal 135 -146 (mmol/L) Final Potassium 10/11/2023 04:11:00 4.6 3.5-5.1 (m mol/L) Final Cl 10/11/2023 04:11:00 91 Below low normal 98- 107 (mmol/L) Final CO2 10/11/2023 04:11:00 25 22-32 (mmo l/L) Final Anion gap 10/11/2023 04:11:00 11 7-15 (mmol /L) Final Glucose 10/11/2023 04:11:00 106 70-120 (mg /dL) Final Calcium 10/11/2023 04:11:00 9.7 8.4-10.2 ( mg/dL) Final Performing Location LABORATORY [facility] - [address] [place] [address]
--- OUTSIDE RECORDS SUMMARY | 2023-10-19 08:48 | External Medical Summary ---
Author Name Unknown Address Unknown Organization K01:LAB[facility]ATORY [facility] [place] [address] [facility] [place] [address] Laboratory Report Ordering Provider Test Date Status LOKESH STRONG 10/11/2023 04:11:00 Final Observation Date Value Abnormality Reference (Units ) Status Triglyceride 10/11/2023 04:11:00 64 <=174 ( mg/dL) Final Triglyceride Reference Range s (mg/dL):
<150 Acceptable
150-174 Borderline high
175-499 High
>=500 Very high Cholesterol 10/11/2023 04:11:00 125 <200 (mg /dL) Final Total Cholesterol Reference Ranges (mg/dL):
<200 Desirable
200-239 Borderline high
>=240 High HDL 10/11/2023 04:11:00 73 >49 (mg/dL ) Final HDL Cholesterol Reference Ra nges (mg/dL):
>=60 High (Desirable)
<50 Low (Undesirable) For Females
<40 Low (Undesirable) For Males NON-HDL CHOLESTEROL 10/11/2023 04:11:00 52 <=159 (mg/dL) Final Non-HDL Cholesterol Referenc e Range (mg/dL):
<100 Target level for high risk ASCVD patient
<130 Optimal for general population
130-159 Near optimal for general population
160-189 Borderline High
190-219 High
>=220 Very High LDL, (calculated) 10/11/2023 04:11:00 39 <= 129 (mg/dL) Final LDL Cholesterol Reference Ra nges (mg/dL):
<70 Target level for high risk ASCVD patient
<100 Optimal for general population
100-129 Near optimal for general population
130-159 Borderline high
160-189 High
>=190 Very high Performing Location LABORATORY [facility] - [address] [facility] [address]
--- OUTSIDE RECORDS SUMMARY | 2023-10-19 08:48 | External Medical Summary ---
Author Name Unknown Address Unknown Organization K01:LABORATORY C - [address] [place] [address] Laboratory Report Ordering Provider Test Date Status KERRY BORJA 10/11/2023 04:11:00 Final Observation Date Value Abnormality Reference (Units ) Status Phosphate 10/11/2023 04:11:00 3.5 2.5-4.8 (m g/dL) Final Performing Location LABORATORY [facility] - [address] [facility] [address]
--- OUTSIDE RECORDS SUMMARY | 2023-10-19 08:48 | External Medical Summary ---
Author Name Unknown Address Unknown Organization K01:LABORATORY [facility] - [address] [facility] [address] Laboratory Report Ordering Provider Test Date Status VICKI STRONGTOSHIALILLIE 10/11/2023 04:10:00 Final Observation Date Value Abnormality Reference (Units ) Status HbA1C 10/11/2023 04:10:00 5.5 4.0-5.6 (% ) Final The use of HbA1c to monitor glycemic status is based on normal hemoglobin and HbA composition. This test should not be used in patients with abnormal hemoglobin that affects the half life of the red blood cell or the in vivo glycation rates. Glucose, estimated average 10/11/2023 04:10:00 111 <126 (mg/dL) Final Performing Location LABORATORY [facility] - [address] [facility] [address]
--- OUTSIDE RECORDS SUMMARY | 2023-10-19 08:48 | External Medical Summary ---
Author Name Unknown Address Unknown Organization K01:LAB[facility]ATORY [facility] - [address] [place] [address] Laboratory Report Ordering Provider Test Date Status LOKESH STRONG 10/11/2023 04:10:00 Final Observation Date Value Abnormality Reference (Units ) Status ABO 10/11/2023 04:10:00 O Final RH 10/11/2023 04:10:00 Positive Final Performing Location LAB[facility]ORY [facility] - [address] [place] [address]
--- OUTSIDE RECORDS SUMMARY | 2023-10-19 08:48 | External Medical Summary ---
Author Name Unknown Address Unknown Organization K01:[facility]ATORY [facility] - [address] [facility] [address] Laboratory Report Ordering Provider Test Date Status KERRY BORJA 10/11/2023 04:10:00 Final Anticoagulation may affect t esting. Refer to [facility] Test Catalog for a list of effects. Observation Date Value Abnormality Reference (Units ) Status aPTT panel - Platelet poor plasma 10/11/2023 04:10:00 58 Above high normal 21-38 (seconds) Final Performing Location LABORATORY [facility] - [address] [facility] [address]
--- OUTSIDE RECORDS SUMMARY | 2023-10-19 08:48 | External Medical Summary ---
Author Name Unknown Address Unknown Organization K01:LABORATORY [facility] - [address] [place] [address] Laboratory Report Ordering Provider Test Date Status LOKESH STRONG 10/11/2023 04:10:00 Final Observation Date Value Abnormality Reference (Units ) Status ABO 10/11/2023 04:10:00 O Final RH 10/11/2023 04:10:00 Positive Final RED BLOOD CELL ANTIBODY SCREEN 10/11/2023 04:10:00 Negative Final SPECIMEN EXPIRATION DATE 10/11/2023 04:10:00 10/14/2023 23:59 Final Performing Location LABORATORY [facility] - [address] [place] [address]
--- OUTSIDE RECORDS SUMMARY | 2023-10-19 08:48 | External Medical Summary ---
Author Name Unknown Address Unknown Organization K01:LABORATORY [facility] [place] - [facility] [place] [address] [place] [address] Laboratory Report Ordering Provider Test Date Status KERRY BORJA 10/11/2023 04:10:00 Final Observation Date Value Abnormality Reference (Units ) Status Heparin, unfractionated level 10/11/2023 04:10:00 0.22 Above high normal <0.10 (IU/mL) Final Unfractionated therapeutic r anges for Anti Xa activity:
For Cardiac/Neurologic treatment: 0.3 to 0.6 IU/mL.
For treatment of DVT or Pulmonary Embolism: 0.3 to 0.7 IU/mL. Performing Location LABORATORY [facility] [place] - [address] [place] [address]
--- OUTSIDE RECORDS SUMMARY | 2023-10-19 08:48 | External Medical Summary ---
Author Name Unknown Address Unknown Organization K01:LABORATORY [facility] - [address] [facility] [address] [facility] [address] [facility] [address] Laboratory Report Ordering Provider Test Date Status KERRY BORJA 10/11/2023 04:10:00 Final Observation Date Value Abnormality Reference (Units ) Status WBC, Total 10/11/2023 04:10:00 5.49 4.00-10.80 (K/uL) Final RBC 10/11/2023 04:10:00 3.55 3.85-5.15 (M/uL) Final Hemoglobin 10/11/2023 04:10:00 10.7 Below low normal 12.0-15.3 (g/dL) Final HCT 10/11/2023 04:10:00 32.2 Below low normal 36.0-45.2 (%) Final MCV 10/11/2023 04:10:00 90.7 81.5-97.5 (fL) Final MCH 10/11/2023 04:10:00 30.1 27.0-34.0 (pg) Final MCHC 10/11/2023 04:10:00 33.2 32.0-36.0 (g/dL) Final RDW 10/11/2023 04:10:00 13.0 11.5-15.5 (%) Final Platelets 10/11/2023 04:10:00 201 140-400 (K/uL) Final MPV 10/11/2023 04:10:00 10.8 6.6-11.1 (fL) Final Nucleated erythrocytes/100 leukocytes [Ratio] in Blood by Automated count 10/11/2023 04:10:00 0 <=0 (/100 WBCs) Final Performing Location LABORATORY [facility] - [address] [place] [address]
--- OUTSIDE RECORDS SUMMARY | 2023-10-19 08:48 | External Medical Summary ---
Author Name Unknown Address Unknown Organization K01:LABORATORY [facility] [place] - [address] [place] [address] Laboratory Report Ordering Provider Test Date Status KERRY BORJA 10/11/2023 04:10:00 Final Warfarin Therapy
INR: 2 .0-3.0 conventional anticoagulation
INR: 2.5- 3.5 high intensity anticoagulation Observation Date Value Abnormality Reference (Units ) Status PT 10/11/2023 04:10:00 14.0 11.6-15.2 (seconds) Final INR 10/11/2023 04:10:00 1.1 0.8-1.2 Final Performing Location LABORATORY [facility] [place] - [address] [place] [address]
--- OUTSIDE RECORDS SUMMARY | 2023-10-19 08:48 | External Medical Summary ---
Author Name Unknown Address Unknown Organization K01:LABORATORY [facility] - [address] [place] [address] Laboratory Report Ordering Provider Test Date Status HUONG,VOYOSVANY 10/11/2023 04:11:00 Final Observation Date Value Abnormality Reference (Units ) Status Magnesium 10/11/2023 04:11:00 1.7 1.5-2.6 (m g/dL) Final Performing Location LABORATORY [facility] - [address] [facility] [address]
--- OUTSIDE RECORDS SUMMARY | 2023-10-19 08:48 | External Medical Summary | Summary of Care ---
Author Name Unknown Organization [facility] Address [address] [place] [address] Phone [phone] Care Team Providers Care Manager Mobility Name Role Phone Jazzy Appiah DO Primary Care Provider [phone] Encounter Details Date Type Department Care Team (Late st Contact Info) Description 10/09/2023 Orders Only [facility] [address] [place] [address] Pedro Luis Acharya MD [address] [place] [address] Allergies Active Allergy Reactions Criticality Noted Date Comments Ramipril Unknown Low 01/08/2014 Gabapentin Edema Other Medium 03/30/2011 Attempted x 3 with resultant fatigue and peripheral edema Oxycodone 06/09/2019 Makes me go crazy documented as of this encounter (statuses as of 10/10/2023) Medications Medication Sig Dispensed Refills Start Date [...] disease unspecified,Mitral valve disease,Coronary artery disease involving [place] coronary artery of [place] heart without angina pectoris,S/P primary angioplasty with coronary stent,Chronic heart failure with preserved ejection fraction (HCC),HTN, goal below 140/90,Dyslipidemia, goal LDL below 70 Take 1 Tablet by mouth in the morning. 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 02/28/2012 GENERAL OSTEOARTHROSIS Hiatal hernia documented as of this encounter (statuses as of 10/10/2023) Resolved Problems Problem Noted Date Diagnosed Date Resolved Date Hypertensive kidney disease with chronic kidney disease stage III 11/04/2018 06/03/2020 Overview: Per CKD protocol Carpal tunnel syndrome of left wrist 11/11/2015 09/18/2017 Tubular adenoma of colon 04/14/2015 Benign esophageal stricture 03/15/2015 09/18/2017 MEDICATION USE AGREEMENT 08/21/2014 Overview: Signed 08/21/2014 Nazanin Mayfield MD [facility] as backup Anemia 10/01/2013 04/08/2015 COPD, [...] as of this encounter (statuses as of 10/10/2023) Immunizations Name Administration Dates Next Due COVID-19 mRNA, LNP-s, No Pre serve, 2-Dose Series ([employer]) 11/20/2020,10/26/2020 Pneumococcal Conjugate Vacc, 13 Valent (Prevnar) [...] 10/19/2023 10:30 AM EDT Office Visit Cardiology, [facility] [address] [facility] [place] [address] Pricilla Morse CRNP [address] [facility] [place] [address] 12/13/2023 2:30 PM EDT Cardiac Studies Cardiac Studies, [facility] [address] [facility] [place] [address] 12/19/2023 1:30 PM EDT [address]iology, [address] [place] [address] Shyam Son MD [address] [facility] [address] 04/23/2024 3:10 PM EDT Office Visit Family Medicine [address] [place] [phone] Jazzy Appiah [address] [place] [address] Health Maintenance Due Date Last Done Comments Alpha-1 Antitrypsin 1961 Zoster Vaccines (1 of 2) 1993 DXA Scan 12/04/2020 12/04/2017, 07/24, 07/21/2010, Additional history exists Depression Screening 01/20/2022 01/20/2021 COVID-19 Vaccine ( season) 2023 11/20/2020, 10/26/2020 Chawla's Esophagus Surveilance 04/09/2023 04/09/2020, 07/07/2019, 04/10/2012, Additional history exists *NEPHROLOGY REFERRAL DUE TO RESISTANT HTN 09/16/2023 CKD PHOS USE SMARTSET 54976 11/23/2023 05/0 09/2022, 11/18/2021, 11/02/2020, Additional history exists Albumin/Creatinine Ratio 03/06/2024 023, 05/23/2022, 08/15/2021, Additional history exists GFR 03/23/2024 09/21/2023, 08/24, 04/13/2023, Additional history exists CKD HGB USE SMARTSET 77039 09/14/202409/14, 03/06/2023, 03/06/2023, Additional history exists O2 [...] this encounter Medical Devices Implanted Type Area Tool Lapper Hand Device Identifier Shelf Expiration Date Model / Serial / Lot Cath Thermodilution 6fr - [id number] Implanted:Qty: 1 on 05/31/2022 by Yoli Rocha MD at [facility] [employer] [id number] 01/30/2024 [id number] / / [id number] Stent Synergy Xd Mr [id number] - [id number] Implanted:Qty: 1 on 07/27/2022 by Yoli Rocha MD at [facility] [employer] 11/08/2023 [id number] / / [id number] documented as of this encounter Procedures Procedure [...] interpreted or resulted by a [facility] or [facility] contracted radiologist. Pedro Luis Walker MD RAD [...] due to patient's condition Care Teams Manager Mobility Relationship Specialty Start Date End Date Jazzy Appiah DO [address] [place] [address] [place] [address] PCP - General Internal Medicine 03/12/17 documented as of this encounter
--- OUTSIDE RECORDS SUMMARY | 2023-10-19 08:49 | External Medical Summary | Summary of Care ---
Author Name Unknown Organization [facility] Address [address] [place] [address] Phone [phone] Care Team Providers Care Financial Aid Officer Name Role Phone Jazzy Appiah DO Primary Care Provider [phone] Encounter Details Date Type Department Care Team (Late st Contact Info) Description 10/07/2023 Orders Only [facility] [address] [place] [address] Pedro Luis Acharya MD [address] [place] [address] Allergies Active Allergy Reactions Criticality [...] disease unspecified,Mitral valve disease,Coronary artery disease involving [place] coronary artery of [place] heart without angina pectoris,S/P primary angioplasty with [...] 0 10/01/2013 Coronary artery disease invo lving [place] coronary artery of [place] heart without angina pectoris 05/20/2013 Hyperlipidemia with [...] 08/21/2014 Overview: Signed 08/21/2014 Nazanin Mayfield MD [facility] as backup Anemia 10/01/2013 04/08/2015 [...] mRNA, LNP-s, No Pre serve, 2-Dose Series ([employer]) 11/20/2020,10/26/2020 Pneumococcal Conjugate Vacc, 13 Valent (Prevnar) [...] 10/19/2023 10:30 AM EDT Office Visit Cardiology, [facility] [address] [facility] [place] [address] Priclila Morse CRNP 132 [facility] [place] [address] 12/13/2023 2:30 PM EDT Cardiac Studies Cardiac Studies, [facility] [address] [facility] [place] [address] 12/19/2023 1:30 PM EDT Office [address] Cardiology, [address] [place] [address] Shyam Son MD [address] [facility] [address] 04/23/2024 3:10 PM EDT Office Visit Family Medicine [address] [place] [phone] Jazzy Appiah [address] [place] [address] Health Maintenance Due Date Last Done Comments Alpha-1 Antitrypsin 1961 Zoster Vaccines (1 of 2) 1993 DXA Scan 12/04/2020 12/04/2017, 07/24, 07/21/2010, Additional history exists Depression Screening 01/20/2022 01/20/2021 COVID-19 Vaccine ( season) 2023 11/20/2020, 10/26/2020 Chawla's Esophagus Surveilance 04/09/2023 04/09/2020, 07/07/2019, 04/10/2012, Additional history exists *NEPHROLOGY REFERRAL DUE TO RESISTANT HTN 09/16/2023 CKD PHOS USE SMARTSET 59994 11/23/2023 05/0 09/2022, 11/18/2021, 11/02/2020, Additional history exists Albumin/Creatinine Ratio 03/06/2024 023, 05/23/2022, 08/15/2021, Additional history exists GFR 03/23/2024 09/21/2023, 08/24, 04/13/2023, Additional history exists CKD HGB USE SMARTSET 98946 09/14/202409/14, 03/06/2023, 03/06/2023, Additional history exists O2 [...] this encounter Medical Devices Implanted Type Area Manager Culinary Device Identifier Shelf Expiration Date Model / Serial / Lot Cath Thermodilution 6fr - [id number] Implanted:Qty: 1 on 05/31/2022 by Yoli Rocha [place] [facility] [employer] [id number] 01/30/2024 [id number] / / [id number] Stent Synergy Xd Mr [id number] - [id number] Implanted:Qty: 1 on 07/27/2022 by Yoli Rocha MD [place] [facility] [employer] 11/08/2023 [id number] / / [id number] documented as of this encounter Procedures Procedure [...] interpreted or resulted by a [facility] or [employer] contracted radiologist. Pedro Luis GOMEZ OLOGY (RAD GENERAL) documented in this encounter Advance Directives Latest Code Status on File Code Status Date Activated Date Inactivated Comments Full Code 07/27/2022 12:56 PM 07/28/2022 1:52 PM This o rder reflects the patients wishes and were consensually agreed upon. Question Answer Comments Discussion of Advance Directives occurred with: Not Discussed due to patient's condition Care Teams Financial Aid Officer Relationship Specialty Start Date End Date Jazzy Appiah DO [address] [place] [address] [place] [address] PCP - General Internal Medicine 03/12/17 documented as of this encounter
--- NOTE | 2023-10-19 08:58 | Cardiology Consultation ---
Date of Consultation October 19, 2023 Assessment & Plan (1) SHEA (acute kidney injury): (2) CKD (chronic kidney disease) stage 4, GFR 15-29 ml/min: (3) Chronic hyponatremia: (4) Chronic heart failure with preserved ejection fraction (HFpEF): (5) Aortic stenosis: (6) Elevated troponin: (7) Hypertension: Plan Assessment: 78 year old female presents for evaluation s/t worsening renal function, and weakness. SHEA on CKD with hyponatremia in the setting of known chronic HF and valvular dysfunction. Plan: 1. SHEA 2. CKD 3. Hyponatremia: -Patient with recent hospitalization for NSTEMI and HF exacerbation. OP labs revealed worsening renal function and ongoing hyponatremia. Continue to hold diuretics, Discontinue losartan as Titus-I/ARBS are not generally recommended in the setting of aortic stenosis. Agree with gentle IV fluid resuscitation and close monitoring of fluid status including Strict I&Os/daily weights. -repeat labs in the AM, reassess medication therapies. -Cause of her SHEA is likely multifactorial in the setting of known CKD, recent NSTEMI in which patient received IV contrast for cardiac catheterization, and medication adjustments including increase of Losartan and continue diuretics. -Exhibits mild volume overload on exam, not far from her baseline. Nephrology also on consult, will appreciate recommendations. 4. chronic HFpEF -Exhibits mild lower extremity edema, which is close to her baseline. Offers no complaints of chest pain or dyspnea. Demonstrates no respiratory distress. -Continue to hold diuretics and discontinue Losartan. -Reassess labs in the morning. -Coreg on hold s/t bradycardia, monitor closely. No evidence of high grade heart block or sinus pause on telemetry. -May continue Hydralazine 5. Aortic stenosis: -Moderate as per recent echocardiogram. -Monitor fluid status closely. -Recommend avoiding TITUS-I/ARB medications 6. Elevated troponin: -patient with chronic elevation as well as in the setting of recent NSTEMI - No acute EKG changes to suggest ischemia -SHEA on CKD contributing factor. 7. HTN: -High end of target today. -Continue Hydralazine, and Amlodipine. Case has been discussed with Dr. Schwartz. Further recommendations regarding plan of care as per his assessment. I spent a total of 40 minutes on the date of service in preparation, delivery, documentation of the care provided to the patient excluding any time spent in the performance of separately billed services. DENIA [facility] Cardiology [facility] Supervising Physician Co-Signing Physician Notes Patient was seen and personally examined. Assessment and care as discussed above with advanced provider. Additional 20 minutes on date of service in preparation delivery and documentation of the care Complex 78-year-old female with recent hospitalization for further assessment of valvular heart disease and coronary artery disease Right and left heart catheterization performed, coronary angiography Medications adjusted to manage lower extremity edema chronic right heart failure including increased diuretics, losartan. Patient without acute complaints though still fatigued laboratory studies done and follow-up demonstrated significant decline in renal function, hyponatremia Underlying issues as described coronary artery disease, moderate to severe aortic stenosis, calcific, chronic right heart failure secondary to elevated left heart pressures Impression: Acute renal insufficiency, multifactorial including medications, contrast administration, chronic right heart failure Plan: Discontinue losartan Hold diuretics currently until renal function improved then resume cautiously Will treat underlying hypertensive issues avoiding TITUS and ARB as presents History of Present Illness Reason for Consultation: Chest pains, abnormal labs and know aortic stenosis Requesting Physician: Monique hospitalist Attending Physician: Rochelle Herrera MD History of Present Illness HPI: Patient is a 78 year old medically complex female that presented to the ED after being contacted for abnormal labs. Patient was recently admitted at [facility] on 10/07/23 for complaints of shortness of breath and chest pain. She was ultimately transferred to [facility] for Left and right heart cath s/t NSTEMI. during that hospitalization she also had a SEHA and hyponatremia. Left and right heart cath showed mild CAD (Mild to moderate diffuse RCA disease noted ,mild LAD disease and mild proximal left circumflex disease.), patent prior Left main stent, Moderate and severely elevated right heart pressures. No intervention was done as it was felt her pulmonary HTN was a result of heart failure and felt her HF regimen was optimized. Patient states today that since the time of discharge she was felt increasingly weak and has intermittent dull chest pains which she reports are not new and have been ongoing for a "long time". She is chest pain free at the time of my assessment and reports no episodes since arrival. Patient had OP labs which resulted in the recommendation of her arrival. Cr. 2.55 at time of arrival. She is resting in a chair with no complaints of chest pain, pressure, palpitations, no shortness of breath, PND, pre-syncope, syncope or worsening edema. Repeat labs today shows mild improvement. Serum Na 131, K 4.9 and Creatine now 2.29. (BUN 109) EKG on admission demonstrates SB with 1st degree AV block, left axis deviation, LVH, possible prior prior septal infarct. Rate 48bpm. Review of telemetry demonstrates SB rate 49. No marked events overnight Past medical history: 1. Coronary artery disease, status post PCI to the LM, 07/27/2022 2. Severe aortic stenosis, discordant date on echo a. Moderate per cath, 04/2022 3. Mitral regurgitation and stenosis 4. Chronic diastolic CHF 5. Hypertension 6. Hyperlipidemia 7. Carotid artery stenosis, 50-69% bilaterally, follows with vascular 8. Peripheral vascular disease Allergies Allergy/AdvReac Type Severity Reaction Status Date / Time gabapentin AdvReac Intermediate cough Verified 10/07/23 17:13 oxycodone AdvReac Intermediate "makes me Verified 10/07/23 17:13 go crazy" ramipril AdvReac Intermediate cough Verified 10/07/23 17:13 Home Medications Medication Instructions Recorded Confirmed Type amlodipine 5 mg tablet 7.5 mg PO DAILY 10/19/23 10/19/23 History aspirin 81 mg tablet,delayed 81 mg PO DAILY 10/19/23 10/19/23 History release atorvastatin 20 mg tablet 20 mg PO DAILY 10/19/23 10/19/23 History carvedilol 6.25 mg tablet 12.5 mg PO BID 10/19/23 10/19/23 History hydralazine 50 mg tablet 50 mg PO TID 10/19/23 10/19/23 History hydrocodone 10 mg-acetaminophen 1 tab PO BID PRN Severe Pain 10/19/23 10/19/23 History 325 mg tablet (Scale Score 7-10) losartan 50 mg tablet 50 mg PO DAILY 10/19/23 10/19/23 History omeprazole 20 mg capsule,delayed 20 mg PO DAILY 10/19/23 10/19/23 History release torsemide 10 mg tablet 10 mg PO UD 10/19/23 10/19/23 History Patient History Medical History (Updated 10/19/23 @ 14:59 by Nanci Hein MD, PhD) CKD (chronic kidney disease) stage 4, GFR 15-29 ml/min Chronic heart failure with preserved ejection fraction (HFpEF) Myalgia Generalized weakness Acute exacerbation of congestive heart failure COVID Hypertensive crisis Chronic sialoadenitis Poor historian Chronic back pain Osteoarthritis History of esophageal dilatation GERD (gastroesophageal reflux disease) Leaky heart valve per pt aorta--follows with Dr. Gonzáles Hypertension Hyperlipidemia Cardiac murmur Esophageal motility disorder "noted on barium swallow 10/2014" Chawla's esophagus Aortic stenosis "moderately severe by echo September 2013" Coronary artery disease LM PCI 07/27/2022 Surgical History History of colonoscopy History of umbilical hernia repair History of cardiac cath x3--last 12/2018 no stents History of hysterectomy History of lumpectomy cant remember which breast---benign fatty tissue History of bilateral tubal ligation History of carpal tunnel release of both wrists History of lumbar spinal fusion History of total left knee replacement (TKR) History of appendectomy History of cholecystectomy History of esophagogastroduodenoscopy (EGD) History of tooth extraction History of tonsillectomy History of sinus surgery Family History Other No family history of adverse response to anesthesia No family history of bleeding disorder Social History Smoking Status: Never smoker Tobacco Type: Cigarettes Second Hand Exposure: No; Do You Dip or Chew Tobacco: No; Hx Alcohol Use: No Hx Substance Use: No Preferred Language: Kiswahili Communication Ability: Effective Presser [employer] Required: No Beliefs That Will Affect Care: Jehovah'S Witness Jehovah'S Witness 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 Sons help daily. Feels Safe at Home: Yes Safety Concerns: Feels Safe At This Time Assistive Devices: Cane, Glasses and Walker Review of Systems Review of Systems: All systems reviewed & are unremarkable except as noted in HPI & below Physical Exam Constitutional: well developed and well nourished; no acute distress and not ill appearing Neck: normal visual inspection and trachea midline Respiratory: normal respiratory effort; no respiratory distress, no labored breathing, no cough and not tachypneic Auscultation: lungs clear to auscultation bilaterally; no crackles, no rales, no rhonchi and no wheezes Cardiovascular: Rate/Rhythm: + bradycardic Heart Sounds: normal S1, normal S2 and + murmur (2/6 systolic ) Vessels: dorsalis pedis pulses present; no JVD Extremities: + edema (trace BLE) Skin: no rashes, warm and dry Psychiatric: A+Ox3, euthymic affect Results & Data Vital Signs (Past 12 Hours) Vital Signs Temp Pulse Pulse Resp BP BP Pulse Ox 10/19/23 08:27 50 L 12 149/68 H 97 10/19/23 07:08 46 L 10/19/23 06:00 46 L 19 153/58 H 94 10/19/23 05:00 48 L 18 167/46 H 99 10/19/23 05:00 47 L 18 95 10/19/23 04:00 50 L 19 154/65 H 96 10/19/23 03:00 48 L 16 157/62 H 97 10/19/23 02:09 48 L 16 146/53 H 100 10/19/23 02:07 10/19/23 02:00 49 L 16 148/53 H 95 10/19/23 01:06 53 L 10/19/23 01:00 50 L 16 146/57 H 96 10/19/23 00:00 51 L 19 155/42 H 97 10/18/23 22:49 48 L 10/18/23 22:47 10/18/23 22:47 48 L 16 149/61 H 96 10/18/23 21:06 36.6 C 51 L 17 156/62 H 96 Pulse Ox O2 Del Method O2 Del Method 10/19/23 08:27 Room Air 10/19/23 07:08 10/19/23 06:00 Room Air 10/19/23 05:00 Room Air 10/19/23 05:00 10/19/23 04:00 10/19/23 03:00 Room Air 10/19/23 02:09 Room Air 10/19/23 02:07 99 Room Air 10/19/23 02:00 Room Air 10/19/23 01:06 10/19/23 01:00 Room Air 10/19/23 00:00 Room Air 10/18/23 22:49 10/18/23 22:47 Room Air 10/18/23 22:47 10/18/23 21:06 Room Air Laboratory Results Cardiac Enzymes 10/18/23 10/19/23 10/19/23 Range/Units 21:30 05:29 11:33 AST 40 H (13-39) U/L Troponin I High Sens 95.0 H* 112.8 H* 113.5 H* (0-14) pg/ml CBC 10/18/23 10/19/23 Range/Units 21:30 05:29 WBC 5.22 5.54 (4.8-10.8) K/ul RBC 3.11 L 2.89 L (4.20-5.40) M/uL Hgb 9.1 L 8.6 L (12.0-16.0) g/dl Hct 27.6 L 26.0 L (37.0-47.0) % Plt Count 206 187 (130-400) K/uL Neut # (Auto) 3.49 3.72 (1.40-6.50) K/uL Lymph # (Auto) 0.83 L 0.84 L (1.20-3.40) K/uL Jay # (Auto) 0.60 H 0.64 H (0.11-0.59) K/uL Eos # (Auto) 0.23 0.28 (0.00-0.50) K/uL Baso # (Auto) 0.05 0.04 (0.00-0.20) K/uL Comprehensive Metabolic Panel 10/18/23 10/19/23 Range/Units 21:30 05:29 Sodium 128 L 131 L (136-145) mmol/L Potassium 4.9 4.9 (3.5-5.1) mmol/L Chloride 96 L 99 (98-107) mmol/L Carbon Dioxide 23 24 (21-32) mmol/L BUN 111 H 109 H (6-23) mg/dl Creatinine 2.55 H 2.29 H (0.6-1.2) mg/dl Glucose 116 H 99 (70-99(Fasting)) mg/dl Calcium 9.3 9.1 (8.6-10.3) mg/dl AST 40 H (13-39) U/L ALT 38 (7-52) U/L Alkaline Phosphatase 115 H (34-104) U/L Total Protein 7.0 (6.0-8.3) gm/dl Albumin 4.0 (3.4-5.0) gm/dl Intake and Output 10/18/23 10/19/23 10/19/23 22:59 06:59 14:59 Intake Total 500 / 500 Output Total 175 / 175 Balance 325 / 325 Intake: IV 500 / 500 Sodium Chloride 0.9% 500 ml @ 500 / 500 999 mls/hr IV .Q31M ONE Rx#: [id number] Output: Urine 175 / 175 Other: # Unmeasured Voids 1 Weight 66.7 kg 66.7 kg Weight Measurement Method Built in [facility] Built in [facility] (5) Aortic stenosis Cardiac valve disease etiology: nonrheumatic Qualified Code(s): I35.0 - Nonrheumatic aortic (valve) stenosis
--- NOTE | 2023-10-19 09:57 | Nephrology Consultation ---
Date of Consultation October 19, 2023 Assessment & Plan (1) SHEA (acute kidney injury): improving prerenal SHEA on CKD. presented 10/17 w/ creat 2.6, K 4.9, Na 128; had been 2.7/ 5.6/ 123 as OP just before admission. -daily bmp -agree w/ holding diuretics -no further IVF needed -strict I/O and daily STANDING weight -recommend FR 1.5L for now (2) CKD (chronic kidney disease) stage 4, GFR 15-29 ml/min: baseline 1.8-2 creatinine. -hold losartan and avoid losartan at d/c given (3) Chronic heart failure with preserved ejection fraction (HFpEF): as per cardiology. -fluid management as above -diuretics currently on hold (4) Chronic hyponatremia: behaving clinically as hypovolemic; already had 1 L NS -hold diuretics and further IVF for now -gentle FR as above -daily bmp History of Present Illness Reason for Consultation: SHEA, hyponatremia Requesting Physician: Dr Sapp Attending Physician: Rochelle Herrera MD History of Present Illness 78 y/o F whom I'm asked to see for SHEA and hyponatremia was referred based on OP labs and admitted for same overnight. Cardiology yesterday received outside labs on pt remarkable for Na 123, K 5.6, BUN 100, creat 2.7. PMH includes CKD 4 (baseline creatinine 1.8 - 2), HTN, HFpEF, CAD s/p L main stent, severe , severe pulmonary HTN, BL carotid stenosis, PAD, COPD, HL, GERD, Chawla's esophagus, esophageal strictures, chronic sialoadenitis, lumbar and cervical spinal stenosis, chronic ambulatory dysfunction (uses cane). Admitted here 10/06-10/11 w/ NSTEMI and was transferred to [facility] for left and right heart cath which showed mild coronary disease, patent stent, and worsening / severe pulmonary hypertension attributed to HF. Optimal medical mgt for cardiac issues was continued. Did have SHEA and hyponatremia that admission followed by nephro at [facility]. At hospital d/c spironolactone was stopped. D/c paperwork from [facility] recommends 20 mg torsemide MWF and 10 mg other days; pt tells me she's been taking 30 mg MWF torsemide and 10 mg other days. Was not d/c on fluid limit and has been drinking 2-3 x 16 oz water bottles daily. Generalized weakness has continued since hospital d/c w/ intermittent exertional angina, none since arrival to hospital last evening. has had ongoing issues w/ pedal edema past 2 mos and feels edema improved some today. ongoing exertional dyspnea which has also worsened recently along w/ angina> at home she can no longer go down the steps or get easily to the bathroom d/t sob and chest pain. at time of my eval late AM she denied dyspnea at rest or orthopnea. no presyncopal or orthostatic sx, no falls, no f/c; no wheeze or cough. no rash. no dysuria, worsening urinary frequency/urgency, or gross hematuria. no confusion or acute vision changes. no n/v/d/uncontrolled constipation; does note some mild since arrival to hospital RUQ abd pain. Torsemide and losartan held at presentation; she had 1 L NS in ER. Allergies Allergy/AdvReac Type Severity Reaction Status Date / Time gabapentin AdvReac Intermediate cough Verified 10/07/23 17:13 oxycodone AdvReac Intermediate "makes me Verified 10/07/23 17:13 go crazy" ramipril AdvReac Intermediate cough Verified 10/07/23 17:13 Home Medications Medication Instructions Recorded Confirmed Type amlodipine 5 mg tablet 7.5 mg PO DAILY 10/19/23 10/19/23 History aspirin 81 mg tablet,delayed 81 mg PO DAILY 10/19/23 10/19/23 History release atorvastatin 20 mg tablet 20 mg PO DAILY 10/19/23 10/19/23 History carvedilol 6.25 mg tablet 12.5 mg PO BID 10/19/23 10/19/23 History hydralazine 50 mg tablet 50 mg PO TID 10/19/23 10/19/23 History hydrocodone 10 mg-acetaminophen 1 tab PO BID PRN Severe Pain 10/19/23 10/19/23 History 325 mg tablet (Scale Score 7-10) losartan 50 mg tablet 50 mg PO DAILY 10/19/23 10/19/23 History omeprazole 20 mg capsule,delayed 20 mg PO DAILY 10/19/23 10/19/23 History release torsemide 10 mg tablet 10 mg PO UD 10/19/23 10/19/23 History Patient History Medical History (Updated 10/19/23 @ 14:59 by Nanci Hein MD, PhD) CKD (chronic kidney disease) stage 4, GFR 15-29 ml/min Chronic heart failure with preserved ejection fraction (HFpEF) Myalgia Generalized weakness Acute exacerbation of congestive heart failure COVID Hypertensive crisis Chronic sialoadenitis Poor historian Chronic back pain Osteoarthritis History of esophageal dilatation GERD (gastroesophageal reflux disease) Leaky heart valve per pt aorta--follows with Dr. Gonzáles Hypertension Hyperlipidemia Cardiac murmur Esophageal motility disorder "noted on barium swallow 10/2014" Chawla's esophagus Aortic stenosis "moderately severe by echo September 2013" Coronary artery disease LM PCI 07/27/2022 Surgical History History of colonoscopy History of umbilical hernia repair History of cardiac cath x3--last 12/2018 no stents History of hysterectomy History of lumpectomy cant remember which breast---benign fatty tissue History of bilateral tubal ligation History of carpal tunnel release of both wrists History of lumbar spinal fusion History of total left knee replacement (TKR) History of appendectomy History of cholecystectomy History of esophagogastroduodenoscopy (EGD) History of tooth extraction History of tonsillectomy History of sinus surgery Family History Other No family history of adverse response to anesthesia No family history of bleeding disorder Social History Smoking Status: Never smoker Tobacco Type: Cigarettes Second Hand Exposure: No; Do You Dip or Chew Tobacco: No; Hx Alcohol Use: No Hx Substance Use: No Preferred Language: Citizen Of [place] Communication Ability: Effective Certified Medical Asst Required: No Beliefs That Will Affect Care: Confucianism Confucianism 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 Sons help daily. Feels Safe at Home: Yes Safety Concerns: Feels Safe At This Time Assistive Devices: Cane, Glasses and Walker Review of Systems 2 Review of Systems: All systems reviewed & are unremarkable except as noted in HPI & below Physical Exam 2 Constitutional: well developed, well nourished, + frail appearing and cooperative; no acute distress Eyes: EOM intact bilaterally ENMT: Ears: no external ear abnormality Nose: no external nose abnormality Mouth: + dry oral mucous membranes Neck: no nuchal rigidity Respiratory: normal respiratory effort Auscultation: + diminished lung sounds and + crackles (a few bibasilar) Cardiovascular: Rate/Rhythm: regular rate and + bradycardic Extremities: + edema (1+ ankles /2+ pedal BL L>R) Gastrointestinal (Abdomen): Inspection/Auscultation: normal bowel sounds; abdomen not distended Percussion/Palpation: + abdomen tender (mild RUQ) and abdomen soft; no guarding Musculoskeletal: Extremities: strength 5/5 throughout Skin: no rashes, warm and dry Neurologic: chao, fluent speech, no tremor Psychiatric: Orientation: alert and oriented x 3 Results & Data Vital Signs (Past 12 Hours) Vital Signs Pulse Pulse Resp BP BP Pulse Ox Pulse Ox 10/19/23 08:27 50 L 12 149/68 H 97 10/19/23 07:08 46 L 10/19/23 06:00 46 L 19 153/58 H 94 10/19/23 05:00 48 L 18 167/46 H 99 10/19/23 05:00 47 L 18 95 10/19/23 04:00 50 L 19 154/65 H 96 10/19/23 03:00 48 L 16 157/62 H 97 10/19/23 02:09 48 L 16 146/53 H 100 10/19/23 02:07 99 10/19/23 02:00 49 L 16 148/53 H 95 10/19/23 01:06 53 L 10/19/23 01:00 50 L 16 146/57 H 96 10/19/23 00:00 51 L 19 155/42 H 97 10/18/23 22:49 48 L 10/18/23 22:47 10/18/23 22:47 48 L 16 149/61 H 96 O2 Del Method O2 Del Method 10/19/23 08:27 Room Air 10/19/23 07:08 10/19/23 06:00 Room Air 10/19/23 05:00 Room Air 10/19/23 05:00 10/19/23 04:00 10/19/23 03:00 Room Air 10/19/23 02:09 Room Air 10/19/23 02:07 Room Air 10/19/23 02:00 Room Air 10/19/23 01:06 10/19/23 01:00 Room Air 10/19/23 00:00 Room Air 10/18/23 22:49 10/18/23 22:47 Room Air 10/18/23 22:47 Laboratory Results 10/19/23 05:29 10/19/23 05:29 UA bland Diagnostic Findings cxr no acute process
--- NOTE | 2023-10-19 16:00 | Hospitalist Progress Note ---
Date of Service October 19, 2023 Assessment & Plan (1) SHEA (acute kidney injury): Plan: 78-year-old female with past medical history significant for hyperlipidemia, COPD, peripheral artery disease, chronic diastolic CHF, pulmonary hypertension, history of CAD s/p left main stent, moderate to severe aortic valve stenosis, hypertension, carotid stenosis bilateral, 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 Patient was recently in the hospital with generalized weakness shortness of breath and chest pains and was transferred to [facility] for left and right heart catheterization and she was also started on heparin drip for non-ST elevated [place]. During her hospitalization she also seen by nephrology for SHEA and hyponatremia and she received fluids and Lasix and was on fluid restriction 1200 mill per day. At [place] she underwent left and right heart catheterization that showed mild coronary disease, moderate aortic stenosis and severely reba vated right heart pressures indicated of worsening pulmonary hypertension. No intervention was done as pulmonary hypertension was secondary to heart dysfunction and she has been medically optimized for heart failure. Left main coronary stent was patent. Mild to moderate diffuse RCA disease noted ,mild LAD disease and mild proximal left circumflex disease. Patient states since discharge she feeling weak. She is having on and off chest pains. Currently no chest pain. Denies any shortness of breath. No fevers. No cough. She states she is swallowing okay. Had headache earlier but that got resolved. Denies any dizziness. Vision is okay. No sore throat or cough. No nausea. No abdominal pain. Micturating okay. Was constipated yesterday but she took prunes and she moved moved her bowels. Stools are black because she takes iron pills. She states lower extremity edema is somewhat worse. SHEA on CKD stage III- IV Presented with creatinine of 2.5,Baseline creatinine 1.8 Furosemide and losartan are on hold Seems received 500 mL of fluids in the ER and will not give any further IV fluid Repeat labs this morning shows minimal improvement Consult nephrology for further recommendations-appreciate nephrology input and recommendation Hyponatremia-chronic Sodium 128 Holding diuretics Will restrict oral intake of fluid to 1.5 L a day Appreciate nephrology input and recommendation Chronic diastolic CHF Moderate aortic stenosis Pulmonary hypertension Will hold diuretics for significant dehydration with increasing BUN and creatinine Has lower extremity edema No other signs of fluid overload-nose chest x-ray finding and no shortness of breath Appreciate cardiology input and recommendation Recent non-ST elevation [place] Elevated troponin-likely complicated by SHEA but doubt any repeat ACS Could be secondary to demand ischemia Will follow serial enzymes-serial cardiac enzymes are minimally elevated but does not support ACS Appreciate cardiology input and recommendation Chronic back pain home pain meds Hyperlipidemia On statin CAD s/p stents Continue home medications aspirin, statin adjustment of coreq dose per cardiology as patient having bradycardia. Denies any cardiac symptoms HTN on amlodipine coreq dose adjustment per cardio for bradycardia holding losartan and torsemide will monitor. GERD Hiatal hernia History of esophageal strictures, esophageal dysmotility disorder On PPI Will monitor DVT prophylaxis SCDs Heparin subcu Disposition Telemetry Full code Admission and Anticipated Discharge Date Admission Date: October 18, 2023 Subjective 10/19/2023 Patient was seen and examined in telemetry unit She remains generally weak but has been feeling a little better since admission He was admitted from home with abnormal findings of dehydration and SHEA on outpatient lab Denies any chest pain, palpitation or shortness of breath, no abdominal pain nausea no vomit Review of Systems Review of Systems: All systems reviewed and are unremarkable except as noted below Physical Exam Physical Exam: Lying on bed without any acute distress Constitutional: + ill appearing and average body habitus Eyes: PERRL, conjunctivae normal, anicteric sclerae ENMT: external ear and nose normal, oropharynx normal Neck: trachea midline, no thyromegaly Respiratory: no respiratory distress Auscultation: lungs clear to auscultation bilaterally Cardiovascular: Rate/Rhythm: regular rate, regular rhythm and + bradycardic Heart Sounds: normal S1, normal S2 and + murmur (2/6 to 3/6 ESM over precordium and aortic) Extremities: + edema (1+ edema bilateral) Gastrointestinal (Abdomen): Inspection/Auscultation: normal bowel sounds; abdomen not distended Percussion/Palpation: abdomen soft; abdomen nontender Musculoskeletal: No acute arthritis involving any of the joint Neurologic: normal touch/pain/proprioception and moves all extremities; no focal motor deficits Psychiatric: A+Ox3, euthymic affect Lymphatic: no cervical or axillary lymphadenopathy Results & Data Results & Data Vital Signs (Past 12 Hours) Vital Signs Pulse Pulse Resp BP BP Pulse Ox O2 Del Method 10/19/23 08:27 50 L 12 149/68 H 97 Room Air 10/19/23 07:08 46 L 10/19/23 06:00 46 L 19 153/58 H 94 Room Air 10/19/23 05:00 48 L 18 167/46 H 99 Room Air 10/19/23 05:00 47 L 18 95 10/19/23 04:00 50 L 19 154/65 H 96 Laboratory Results Short CBC 10/18/23 10/19/23 Range/Units 21:30 05:29 WBC 5.22 5.54 (4.8-10.8) K/ul Hgb 9.1 L 8.6 L (12.0-16.0) g/dl Hct 27.6 L 26.0 L (37.0-47.0) % Plt Count 206 187 (130-400) K/uL BMP 10/18/23 10/19/23 21:30 05:29 Sodium 128 L 131 L Potassium 4.9 4.9 Chloride 96 L 99 Carbon Dioxide 23 24 BUN 111 H 109 H Creatinine 2.55 H 2.29 H Glucose 116 H 99 Calcium 9.3 9.1 Liver Function 10/18/23 Range/Units 21:30 Total Bilirubin 0.4 (0.2-1.0) mg/dl AST 40 H (13-39) U/L ALT 38 (7-52) U/L Alkaline Phosphatase 115 H (34-104) U/L Albumin 4.0 (3.4-5.0) gm/dl Urine 10/18/23 Range/Units 23:42 Urine Color Yellow Urine Appearance Clear (Clear) Urine pH 5.0 (4.5-7.5) Ur Specific [place] 1.011 (1.000-1.030) Urine Protein 1+ H (Negative) Urine Glucose (UA) Negative (Negative) Medications Administered Current Inpatient Medications Acetaminophen (Acetaminophen 325 Mg Tab) 650 mg PO Q4H PRN PRN Reason: Pain or Fever Stop: 11/18/23 00:36 Hydrocodone Bitart/Acetaminophen (Hydrocodone/Acetaminophen 10/325 Tab) 1 tab PO BID PRN PRN Reason: Severe Pain (Scale Score 7-10) Stop: 11/02/23 01:55 Last Admin: 10/19/23 04:03 Dose: 1 tab Amlodipine Besylate (Amlodipine Besylate 5 Mg Tab) 7.5 mg PO DAILY [facility] Stop: 11/18/23 08:59 Last Admin: 10/19/23 08:16 Dose: 7.5 mg Aspirin (Aspirin 81 Mg Ectab) 81 mg PO DAILY MELLISA Stop: 11/18/23 08:59 Last Admin: 10/19/23 08:18 Dose: 81 mg Atorvastatin Calcium (Atorvastatin 20 Mg Tab) 20 mg PO DAILY MELLISA Stop: 11/18/23 08:59 Last Admin: 10/19/23 08:18 Dose: 20 mg Heparin Sodium (Porcine) (Heparin Sod 5,000 Unit/0.5 Ml Vial) 5,000 units SQ Q12 MELLISA Stop: 11/18/23 08:59 Last Admin: 10/19/23 08:15 Dose: 5,000 units Hydralazine HCl (Hydralazine Tab 50 Mg Tab) 50 mg PO TID MELLISA Stop: 11/18/23 08:59 Last Admin: 10/19/23 08:14 Dose: 50 mg Nitroglycerin (Nitroglycerin Sl 0.4 Mg/Tab Tab) 0.4 mg SL Q5M PRN PRN Reason: Chest Pain Stop: 11/18/23 00:36 Pantoprazole Sodium (Pantoprazole 40 Mg Tab) 40 mg PO DAILY MELLISA Stop: 11/18/23 08:59 Last Admin: 10/19/23 08:14 Dose: 40 mg Polyethylene Glycol (Polyethylene (Miralax) 17 Gm Pack) 17 gm PO DAILY PRN PRN Reason: Constipation Stop: 11/18/23 00:36
--- NOTE | 2023-10-19 16:10 | Electrocardiogram Report ---
Test Reason : Blood Pressure : / mmHG Vent. Rate : 048 BPM Atrial Rate : 048 BPM P-R Int : 210 ms QRS Dur : 126 ms QT Int : 474 ms P-R-T Axes : 071 -33 077 degrees QTc Int : 423 ms Sinus bradycardia with 1st degree A-V block Left axis deviation Left ventricular hypertrophy with QRS widening ( R in aVL ) Cannot rule out Septal infarct (cited on or before 18-OCT-2023) Abnormal ECG When compared with ECG of 10-OCT-2023 08:10, Previous ECG has undetermined rhythm, needs review Questionable change in initial forces of Septal leads Confirmed by Ricky Ibanez ([id number]) on 10/19/2023 4:10:34 PM Referred By: REFERRED SELF Confirmed By:Ricky Ibanez
[2023-10-20] MEDS: HYDROmorphone INJ 0.5 MG/0.5 ML SYR IV STA (00:45)
[2023-10-20] MEDS: LIDOCAINE 5% 1 PATCH TD SCH (01:37)
[2023-10-20 08:27] LABS: BUN Creatinine Ratio 50.2 (10-20); Calcium 9.4 mg/dl (8.6-10.3); Creatinine Clr Calc Pharmacy 19.7 ml/min; Est GFR (African American) 25.3 ml/min; Est GFR (Non-African American) 21.8 ml/min; Magnesium 1.9 mg/dl (1.7-2.4); Phosphorus 3.8 mg/dl (2.5-4.9); Potassium 4.7 mmol/L (3.5-5.1)
--- NOTE | 2023-10-20 08:47 | Nephrology Progress Note ---
Date of Service October 20, 2023 Assessment & Plan (1) Chronic hyponatremia: Plan: behaving clinically as hypovolemic; already had 1 L NS >> corrected too fast overnight whcih we sometimes see w/ hypovolemia >>started D5W at 125 mL/hr and will recheck bmp at 1400, for which target sNa is no more than 132 >> she's at 133 so will stop D5 and observe -hold diuretics for now -gentle FR 1.5 L (2) SHEA (acute kidney injury): Plan: further improving prerenal SHEA on CKD, now nearly resolved. presented 10/17 w/ creat 2.6, K 4.9, Na 128; had been 2.7/ 5.6/ 123 as OP just before admission. -daily bmp -cont to hold diuretics -no further IVF needed -strict I/O and daily STANDING weight > 66.5 on 10/19 -cont FR 1.5L for now (3) CKD (chronic kidney disease) stage 4, GFR 15-29 ml/min: Plan: baseline 1.8-2 creatinine. -hold losartan and avoid losartan at d/c given (4) Chronic heart failure with preserved ejection fraction (HFpEF): Plan: did d/w cardiology. -fluid management as above -diuretics currently on hold Admission and Anticipated Discharge Date Admission Date: October 18, 2023 Subjective seen on rounds this aM. having significant back pain. feels her edema is acceptable/improved. c/o L leg being numb/stiff. no sob, no n/v/d, no confusion. no new/worrisome voiding sx. no comments about abd pain today Review of Systems 2 Review of Systems: All systems reviewed & are unremarkable except as noted in Subjective Physical Exam 2 Constitutional: well developed, well nourished, + frail appearing and cooperative; no acute distress Eyes: EOM intact bilaterally ENMT: Ears: no external ear abnormality Nose: no external nose abnormality Mouth: + dry oral mucous membranes Neck: no nuchal rigidity Respiratory: normal respiratory effort Auscultation: + diminished lung sounds Cardiovascular: Rate/Rhythm: regular rate and + bradycardic Heart Sounds: + murmur Extremities: + edema (trace BL ankles) Gastrointestinal (Abdomen): Inspection/Auscultation: normal bowel sounds; abdomen not distended Percussion/Palpation: abdomen soft; abdomen nontender and no guarding Musculoskeletal: Extremities: strength 5/5 throughout Skin: no rashes, warm and dry Psychiatric: Orientation: alert and oriented x 3 Results & Data Vital Signs (Past 12 Hours) Vital Signs Temp Pulse Pulse Resp BP Pulse Ox O2 Del Method 10/20/23 07:32 36.6 C 53 L 16 171/77 H 95 Room Air 10/20/23 03:58 36.5 C 50 L 22 168/85 H 96 Room Air 10/19/23 22:12 36.5 C 52 L 16 154/59 H 95 Room Air 10/19/23 21:56 47 L Laboratory Results 10/19/23 05:29 10/20/23 07:24
[2023-10-20] MEDS: DEXTROSE 5% 1,000 ML IV SCH (09:47)
--- NOTE | 2023-10-20 10:41 | Cardiology Progress Note ---
Date of Service October 20, 2023 Assessment & Plan (1) SHEA (acute kidney injury): (2) CKD (chronic kidney disease) stage 4, GFR 15-29 ml/min: (3) Chronic hyponatremia: (4) Chronic heart failure with preserved ejection fraction (HFpEF): (5) Aortic stenosis: (6) Elevated troponin: (7) Hypertension: Plan Assessment: 78 year old female presents for evaluation s/t worsening renal function, and weakness. SHEA on CKD with hyponatremia in the setting of known chronic HF and valvular dysfunction. Plan: 1. SHEA 2. CKD 3. Hyponatremia: -Patient with recent hospitalization for NSTEMI and HF exacerbation. OP labs revealed worsening renal function and ongoing hyponatremia. Continue to hold diuretics, Discontinue losartan as [place]itus-I/ARBS are not generally recommended in the setting of aortic stenosis. Agree with gentle IV fluid resuscitation and close monitoring of fluid status including Strict I&Os/daily weights. -repeat labs in the AM, reassess medication therapies. -Cause of her SHEA is likely multifactorial in the setting of known CKD, recent NSTEMI in which patient received IV contrast for cardiac catheterization, and medication adjustments including increase of Losartan and continue diuretics. -Exhibits mild volume overload on exam, not far from her baseline. Nephrology also on consult, will appreciate recommendations. 4. chronic HFpEF -Exhibits mild lower extremity edema, which is close to her baseline. Offers no complaints of chest pain or dyspnea. Demonstrates no respiratory distress. -Continue to hold diuretics and discontinue Losartan. -Reassess labs in the morning. -Coreg on hold s/t bradycardia, monitor closely. No evidence of high grade heart block or sinus pause on telemetry. -May continue Hydralazine 5. Aortic stenosis: -Moderate as per recent echocardiogram. -Monitor fluid status closely. -Recommend avoiding TITUS-I/ARB medications 6. Elevated troponin: -patient with chronic elevation as well as in the setting of recent NSTEMI - No acute EKG changes to suggest ischemia -SHEA on CKD contributing factor. 7. HTN: -High end of target today. -Continue Hydralazine, and Amlodipine. 10/20/2023 Renal function improving slowly Patient hypertensive and possibly being driven by pain and discomfort Plan as outlined by nephrology regarding follow-up renal function Will treat hypertension Hold diuretics Increase amlodipine to 10 mg p.o. daily, add topical nitrates 1/2 inch every 6 with hold parameters at systolic BP 120 mmHg Admission and Anticipated Discharge Date Admission Date: October 18, 2023 Subjective Patient was seen and examined, chart, medications, telemetry reviewed. No cardiac complaints but complains of severe pain in buttocks and hip due to positioning in bed. Blood pressure running higher but patient describes sleeping poorly overnight. No fevers or chills. Renal function improving Telemetry sinus and sinus bradycardia a Review of Systems Review of Systems: All systems reviewed & are unremarkable except as noted in Subjective Physical Exam Constitutional: + in distress (Secondary to back discomf ort) Eyes: PERRL, conjunctivae normal, anicteric sclerae ENMT: external ear and nose normal, oropharynx normal Neck: normal visual inspection and trachea midline Respiratory: normal respiratory effort; no respiratory distress, no labored breathing, no cough and not tachypneic Auscultation: lungs clear to auscultation bilaterally; no crackles, no rales, no rhonchi and no wheezes Cardiovascular: Rate/Rhythm: + bradycardic Heart Sounds: normal S1, normal S2 and + murmur (2/6 systolic ) Vessels: dorsalis pedis pulses present; no JVD Extremities: + edema (trace BLE) Skin: no rashes, warm and dry Psychiatric: A+Ox3, euthymic affect Results & Data Vital Signs (Past 12 Hours) Vital Signs Temp Pulse Resp BP Pulse Ox O2 Del Method 10/20/23 07:32 36.6 C 53 L 16 171/77 H 95 Room Air 10/20/23 03:58 36.5 C 50 L 22 168/85 H 96 Room Air Laboratory Results Laboratory Results - last 24 hr 10/19/23 10/20/23 11:33 07:24 Sodium 135 L Potassium 4.7 Chloride 104 Carbon Dioxide 23 Anion Gap 8 BUN 105 H Creatinine 2.09 H Est Cr Clr Drug Dosing 19.7 Est GFR ( Amer) 25.3 Est GFR (Non-Af Amer) 21.8 BUN/Creatinine Ratio 50.2 H Glucose 94 Calcium 9.4 Phosphorus 3.8 Magnesium 1.9 Troponin I High Sens 113.5 H* (5) Aortic stenosis Cardiac valve disease etiology: nonrheumatic Qualified Code(s): I35.0 - Nonrheumatic aortic (valve) stenosis
[2023-10-20] MEDS: amLODIPine BESYLATE 5 MG TAB PO ONE (11:47)
[2023-10-20] MEDS: NITROGLYCERIN 2% OINTMENT 30GM TUBE EXT ONE (11:47)
[2023-10-20] MEDS: DICLOFENAC SOD 1% GEL 100 GM TUBE EXT SCH (11:48)
--- NOTE | 2023-10-20 14:19 | Hospitalist Progress Note ---
Date of Service October 20, 2023 Assessment & Plan (1) SHEA (acute kidney injury): Plan: 78-year-old female with past medical history significant for hyperlipidemia, COPD, peripheral artery disease, chronic diastolic CHF, pulmonary hypertension, history of CAD s/p left main stent, moderate to severe aortic valve stenosis, hypertension, carotid stenosis bilateral, 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 Patient was recently in the hospital with generalized weakness shortness of breath and chest pains and was transferred to [facility] for left and right heart catheterization and she was also started on heparin drip for non-ST elevated WA. During her hospitalization she also seen by nephrology for SHEA and hyponatremia and she received fluids and Lasix and was on fluid restriction 1200 mill per day. At [place] she underwent left and right heart catheterization that showed mild coronary disease, moderate aortic stenosis and severely reba vated right heart pressures indicated of worsening pulmonary hypertension. No intervention was done as pulmonary hypertension was secondary to heart dysfunction and she has been medically optimized for heart failure. Left main coronary stent was patent. Mild to moderate diffuse RCA disease noted ,mild LAD disease and mild proximal left circumflex disease. Patient states since discharge she feeling weak. She is having on and off chest pains. Currently no chest pain. Denies any shortness of breath. No fevers. No cough. She states she is swallowing okay. Had headache earlier but that got resolved. Denies any dizziness. Vision is okay. No sore throat or cough. No nausea. No abdominal pain. Micturating okay. Was constipated yesterday but she took prunes and she moved moved her bowels. Stools are black because she takes iron pills. She states lower extremity edema is somewhat worse. Pain in the lower back Likely secondary to pressure No evidence of local ulceration No evidence of radiation of pain Was advised to change posture Diclofenac cream was applied locally SHEA on CKD stage III- IV Presented with creatinine of 2.5,Baseline creatinine 1.8 Furosemide and losartan are on hold Seems received 500 mL of fluids in the ER and will not give any further IV fluid Repeat labs this morning shows minimal improvement Consult nephrology for further recommendations-appreciate nephrology input and recommendation Remains dehydrated with minimal improvement of kidney function Has been started on minimal dose of dextrose Will monitor PRP Hyponatremia-chronic Sodium 128 Holding diuretics Will restrict oral intake of fluid to 1.5 L a day Appreciate nephrology input and recommendation Sodium level has been normalized at 135 Has been getting dextrose to prevent repeat increasing sodium Chronic diastolic CHF Moderate aortic stenosis Pulmonary hypertension Will hold diuretics for significant dehydration with increasing BUN and creatinine Has lower extremity edema No other signs of fluid overload-nose chest x-ray finding and no shortness of breath Appreciate cardiology input and recommendation Diuretics still on hold Recent non-ST elevation WA Elevated troponin-likely complicated by SHEA but doubt any repeat ACS Could be secondary to demand ischemia Will follow serial enzymes-serial cardiac enzymes are minimally elevated but does not support ACS Appreciate cardiology input and recommendation Chronic back pain home pain meds Hyperlipidemia On statin CAD s/p stents Continue home medications aspirin, statin adjustment of coreq dose per cardiology as patient having bradycardia. Denies any cardiac symptoms HTN on amlodipine coreq dose adjustment per cardio for bradycardia holding losartan and torsemide Doses of amlodipine has been increased to 10 mg and Nitropaste added for better control of blood pressure GERD Hiatal hernia History of esophageal strictures, esophageal dysmotility disorder On PPI Will monitor DVT prophylaxis SCDs Heparin subcu Disposition Telemetry Full code Admission and Anticipated Discharge Date Admission Date: October 18, 2023 Subjective 10/19/2023 Patient was seen and examined in telemetry unit She remains generally weak but has been feeling a little better since admission He was admitted from home with abnormal findings of dehydration and SHEA on outpatient lab Denies any chest pain, palpitation or shortness of breath, no abdominal pain nausea no vomit 10/20/2023 The patient was seen and examined in telemetry unit in presence of the son He has been feeling a little better but complains to pain in the lower back Denies any chest pain, palpitation or shortness of breath at rest Denies any abdominal pain, nausea vomiting or diarrhea Review of Systems Review of Systems: All systems reviewed and are unremarkable except as noted below Physical Exam Physical Exam: Lying on bed without any acute distress Constitutional: + ill appearing and average body habitus Eyes: PERRL, conjunctivae normal, anicteric sclerae ENMT: external ear and nose normal, oropharynx normal Neck: trachea midline, no thyromegaly Respiratory: no respiratory distress Auscultation: lungs clear to auscultation bilaterally Cardiovascular: Rate/Rhythm: regular rate, regular rhythm and + bradycardic Heart Sounds: normal S1, normal S2 and + murmur (2/6 to 3/6 ESM over precordium and aortic) Extremities: + edema (1+ edema bilateral) Gastrointestinal (Abdomen): Inspection/Auscultation: normal bowel sounds; abdomen not distended Percussion/Palpation: abdomen soft; abdomen nontender Musculoskeletal: Lower back pain without any radiation Neurologic: normal touch/pain/proprioception and moves all extremities; no focal motor deficits Psychiatric: A+Ox3, euthymic affect Lymphatic: no cervical or axillary lymphadenopathy Results & Data Results & Data Vital Signs (Past 12 Hours) Vital Signs Temp Pulse Pulse Resp BP Pulse Ox O2 Del Method 10/20/23 11:35 36.5 C 51 L 16 174/51 H 97 Room Air 10/20/23 11:03 48 L 10/20/23 07:32 36.6 C 53 L 16 171/77 H 95 Room Air 10/20/23 03:58 36.5 C 50 L 22 168/85 H 96 Room Air Laboratory Results [facility] 10/20/23 07:24 Sodium 135 L Potassium 4.7 Chloride 104 Carbon Dioxide 23 BUN 105 H Creatinine 2.09 H Glucose 94 Calcium 9.4 Medications Administered Current Inpatient Medications Acetaminophen (Acetaminophen 325 Mg Tab) 650 mg PO Q4H PRN PRN Reason: Pain or Fever Stop: 11/18/23 00:36 Hydrocodone Bitart/Acetaminophen (Hydrocodone/Acetaminophen 10/325 Tab) 1 tab PO BID PRN PRN Reason: Severe Pain (Scale Score 7-10) Stop: 11/02/23 01:55 Last Admin: 10/19/23 19:59 Dose: 1 tab Amlodipine Besylate (Amlodipine Besylate 5 Mg Tab) 10 mg PO DAILY [facility] Stop: 11/20/23 08:59 Aspirin (Aspirin 81 Mg Ectab) 81 mg PO DAILY [facility] Stop: 11/18/23 08:59 Last Admin: 10/20/23 08:07 Dose: 81 mg Atorvastatin Calcium (Atorvastatin 20 Mg Tab) 20 mg PO DAILY [facility] Stop: 11/18/23 08:59 Last Admin: 10/20/23 08:10 Dose: 20 mg Diclofenac Sodium (Diclofenac Sod 1% Gel 100 Gm Tube) 2 gm EXT BID [facility]; Protocol Stop: 11/19/23 09:59 Last Admin: 10/20/23 11:48 Dose: 2 gm Heparin Sodium (Porcine) (Heparin Sod 5,000 Unit/0.5 Ml Vial) 5,000 units SQ Q12 [facility] Stop: 11/18/23 08:59 Last Admin: 10/20/23 08:14 Dose: 5,000 units Hydralazine HCl (Hydralazine Tab 50 Mg Tab) 50 mg PO TID [facility] Stop: 11/18/23 08:59 Last Admin: 10/20/23 08:09 Dose: 50 mg Dextrose (D5w) 1,000 mls @ 125 mls/hr IV .Q8H [facility] Stop: 11/19/23 08:46 Last Admin: 10/20/23 09:47 Dose: 125 mls/hr Lidocaine (Lidocaine 5% 1 Patch) 1 patch TD DAILY [facility] Stop: 11/19/23 08:59 Last Admin: 10/20/23 01:37 Dose: 1 patch Miscellaneous (Remove Lidoderm Patch) 1 each N/A DAILY@2100 [facility] Stop: 11/19/23 20:59 Nitroglycerin (Nitroglycerin Sl 0.4 Mg/Tab Tab) 0.4 mg SL Q5M PRN PRN Reason: Chest Pain Stop: 11/18/23 00:36 Pantoprazole Sodium (Pantoprazole 40 Mg Tab) 40 mg PO DAILY [facility] Stop: 11/18/23 08:59 Last Admin: 10/20/23 08:08 Dose: 40 mg Polyethylene Glycol (Polyethylene (Miralax) 17 Gm Pack) 17 gm PO DAILY PRN PRN Reason: Constipation Stop: 11/18/23 00:36
[2023-10-20 15:06] LABS: BUN Creatinine Ratio 48.5 (10-20); Calcium 9.1 mg/dl (8.6-10.3); Creatinine Clr Calc Pharmacy 20.3 ml/min; Est GFR (African American) 26.3 ml/min; Est GFR (Non-African American) 22.7 ml/min; Potassium 4.7 mmol/L (3.5-5.1)
[2023-10-20] MEDS: NITROGLYCERIN 2% OINTMENT 30GM TUBE EXT SCH (19:40)
[2023-10-20] MEDS: ACETAMINOPHEN 325 MG TAB PO PRN (19:41)
[2023-10-21] MEDS: amLODIPine BESYLATE 5 MG TAB PO SCH (08:22)
--- NOTE | 2023-10-21 08:32 | Cardiology Progress Note ---
Date of Service October 21, 2023 Assessment & Plan (1) SHEA (acute kidney injury): (2) CKD (chronic kidney disease) stage 4, GFR 15-29 ml/min: (3) Chronic hyponatremia: (4) Chronic heart failure with preserved ejection fraction (HFpEF): (5) Aortic stenosis: (6) Elevated troponin: (7) Hypertension: Plan Assessment: 78 year old female presents for evaluation s/t worsening renal function, and weakness. SHEA on CKD with hyponatremia in the setting of known chronic HF and valvular dysfunction. Plan: 1. SHEA 2. CKD 3. Hyponatremia: -Patient with recent hospitalization for NSTEMI and HF exacerbation. OP labs revealed worsening renal function and ongoing hyponatremia. Continue to hold diuretics, Discontinue losartan as Titus-I/ARBS are not generally recommended in the setting of aortic stenosis. Agree with gentle IV fluid resuscitation and close monitoring of fluid status including Strict I&Os/daily weights. -repeat labs in the AM, reassess medication therapies. -Cause of her SHEA is likely multifactorial in the setting of known CKD, recent NSTEMI in which patient received IV contrast for cardiac catheterization, and medication adjustments including increase of Losartan and continue diuretics. -Exhibits mild volume overload on exam, not far from her baseline. Nephrology also on consult, will appreciate recommendations. 4. chronic HFpEF -Exhibits mild lower extremity edema, which is close to her baseline. Offers no complaints of chest pain or dyspnea. Demonstrates no respiratory distress. -Continue to hold diuretics and discontinue Losartan. -Reassess labs in the morning. -Coreg on hold s/t bradycardia, monitor closely. No evidence of high grade heart block or sinus pause on telemetry. -May continue Hydralazine 5. Aortic stenosis: -Moderate as per recent echocardiogram. -Monitor fluid status closely. -Recommend avoiding TITUS-I/ARB medications 6. Elevated troponin: -patient with chronic elevation as well as in the setting of recent NSTEMI - No acute EKG changes to suggest ischemia -SHEA on CKD contributing factor. 7. HTN: -High end of target today. -Continue Hydralazine, and Amlodipine. 10/20/2023 Renal function improving slowly Patient hypertensive and possibly being driven by pain and discomfort Plan as outlined by nephrology regarding follow-up renal function Will treat hypertension Hold diuretics Increase amlodipine to 10 mg p.o. daily, add topical nitrates 1/2 inch every 6 with hold parameters at systolic BP 120 mmHg 10/21/2023 Clinically appears improved on examination. Renal function improved Blood pressures trending higher Will avoid carvedilol given resting bradycardia Change topical nitrates to low-dose oral Increase hydralazine to 4 times daily dosing initially 50 mg. Will likely transition to 75 mg 3 times daily as tolerated Admission and Anticipated Discharge Date Admission Date: October 18, 2023 Subjective Patient seen and examined, chart, medications, telemetry reviewed. Concern regarding her blood pressure being elevated this morning but otherwise no complaints. Back discomfort improved with topical treatments. No fevers or chills. No chest pain or worsening shortness of breath. Does have severe headaches with topical nitrates I's and O's not charted but weight down. Lower extremity edema improved Review of Systems Review of Systems: All systems reviewed & are unremarkable except as noted in Subjective Physical Exam Constitutional: well developed, well nourished and + in distress (Secondary to back discomfort); no acute distress and not ill appearing Eyes: PERRL, conjunctivae normal, anicteric sclerae ENMT: external ear and nose normal, oropharynx normal Neck: normal visual inspection and trachea midline Respiratory: normal respiratory effort; no respiratory distress, no labored breathing, no cough and not tachypneic Auscultation: lungs clear to auscultation bilaterally; no crackles, no rales, no rhonchi and no wheezes Cardiovascular: Rate/Rhythm: + bradycardic Heart Sounds: normal S1, normal S2 and + murmur (2/6 systolic ) Vessels: dorsalis pedis pulses present; no JVD Extremities: + edema (trace BLE) Skin: no rashes, warm and dry Psychiatric: A+Ox3, euthymic affect Results & Data Vital Signs (Past 12 Hours) Vital Signs Temp Pulse Pulse Resp BP Pulse Ox O2 Del Method 10/21/23 08:03 36.7 C 55 L 20 186/61 H 93 Room Air 10/21/23 04:15 36.8 C 51 L 16 168/56 H 96 Room Air 10/20/23 22:16 36.5 C 57 L 22 168/64 H 96 Room Air 10/20/23 21:56 47 L Laboratory Results Laboratory Results - last 24 hr 10/20/23 10/21/23 14:24 07:31 Sodium 133 L 134 L Potassium 4.7 4.5 Chloride 103 104 Carbon Dioxide 24 24 Anion Gap 6 6 BUN 98 H 97 H Creatinine 2.02 H 1.80 H Est Cr Clr Drug Dosing 20.3 22.4 Est GFR ( Amer) 26.3 30.3 Est GFR (Non-Af Amer) 22.7 26.1 BUN/Creatinine Ratio 48.5 H 53.9 H Glucose 141 H 85 Calcium 9.1 9.4 Phosphorus 3.7 Magnesium 2.0 (5) Aortic stenosis Cardiac valve disease etiology: nonrheumatic Qualified Code(s): I35.0 - Nonrheumatic aortic (valve) stenosis
[2023-10-21 08:34] LABS: BUN Creatinine Ratio 53.9 (10-20); Calcium 9.4 mg/dl (8.6-10.3); Creatinine Clr Calc Pharmacy 22.4 ml/min; Est GFR (African American) 30.3 ml/min; Est GFR (Non-African American) 26.1 ml/min; Phosphorus 3.7 mg/dl (2.5-4.9); Potassium 4.5 mmol/L (3.5-5.1)
--- NOTE | 2023-10-21 09:11 | Nephrology Progress Note ---
Date of Service October 21, 2023 Assessment & Plan (1) SHEA (acute kidney injury): Plan: resolved prerenal SHEA on CKD. presented 10/17 w/ creat 2.6, K 4.9, Na 128; had been 2.7/ 5.6/ 123 as OP just before admission. -daily bmp >>>resume torsemide but try 10 mg daily to start rather than prior OP dose 10 mg daily except 20 mg MWF -no further IVF needed -strict I/O and daily STANDING weight > 66.5 on 10/19; none obtained 10/20 -cont FR 1.5L for now will sign off NEPH D/C RECS -hold losartan at d/c -daily bmp -favor d/c on torsemide 10 mg daily at first and uptitrate if/as needed as OP -cont amlodipine, hydralazine Recommend discharge on 1.5 L fluid limit and if feasible current lower dose of torsemide -needs hospital d/c appt w/ [place] preferred or [facility] pk in 2-4 wks with bmp, uacm, ACR, pth, 25 OHD, transferrin sat to be ordered by neph nurse and done no more than 3 days before appt -recommend check bmp at PCP hosp d/c visit (2) Chronic hyponatremia: Plan: behaving clinically as hypovolemic; corrected too fast overnight in to 10/19 [facility] we sometimes see w/ hypovolemia and we slowed correction rate w/ hypotonic fluid mild but improved hyponatremia -as above diuretics -gentle FR 1.5 L (3) CKD (chronic kidney disease) stage 4, GFR 15-29 ml/min: Plan: baseline 1.8-2 creatinine. -stop losartan now and at d/c; avoid losartan given (4) Chronic heart failure with preserved ejection fraction (HFpEF): Plan: -fluid management as above -diuretics to resume >>HR as per cardiology Admission and Anticipated Discharge Date Admission Date: October 18, 2023 Subjective Seen on midday rounds. Complains of ongoing significant backside/sacral soreness. Left leg pain is improving. Had Nitropaste on yesterday and had terrible headache with it but doing better with same patch today. Feels her edema is a bit improved. Getting up to bathroom without too much concern for dizziness or dyspnea. Her 3 sons and their families are at bedside today Review of Systems 2 Review of Systems: All systems reviewed & are unremarkable except as noted in Subjective Physical Exam 2 Constitutional: well developed (Sitting up in chair on room air), well nourished, + frail appearing and cooperative; no acute distress Eyes: EOM intact bilaterally ENMT: Ears: no external ear abnormality Nose: no external nose abnormality Mouth: + dry oral mucous membranes Neck: no nuchal rigidity Respiratory: normal respiratory effort Auscultation: + diminished lung sounds Cardiovascular: Rate/Rhythm: regular rate and + bradycardic Heart Sounds: + murmur Extremities: + edema (trace BL ankles) Gastrointestinal (Abdomen): Inspection/Auscultation: normal bowel sounds; abdomen not distended Percussion/Palpation: abdomen soft; abdomen nontender and no guarding Musculoskeletal: Extremities: strength 5/5 throughout Skin: no rashes, warm and dry Psychiatric: Orientation: alert and oriented x 3 Results & Data Vital Signs (Past 12 Hours) Vital Signs Temp Pulse Pulse Resp BP Pulse Ox O2 Del Method 10/21/23 08:03 36.7 C 55 L 20 186/61 H 93 Room Air 10/21/23 04:15 36.8 C 51 L 16 168/56 H 96 Room Air 10/20/23 22:16 36.5 C 57 L 22 168/64 H 96 Room Air 10/20/23 21:56 47 L Laboratory Results 10/19/23 05:29 10/21/23 07:31
[2023-10-21] MEDS: ISOSORBIDE DINITRATE 20 MG TAB PO SCH (10:17)
[2023-10-21] MEDS: TORSEMIDE 10 MG TAB PO SCH (10:17)
[2023-10-21] MEDS: hydrALAZINE TAB 50 MG TAB PO SCH (12:54)
--- NOTE | 2023-10-21 13:31 | Hospitalist Progress Note ---
Date of Service October 21, 2023 Assessment & Plan (1) SHEA (acute kidney injury): Plan: 78-year-old female with past medical history significant for hyperlipidemia, COPD, peripheral artery disease, chronic diastolic CHF, pulmonary hypertension, history of CAD s/p left main stent, moderate to severe aortic valve stenosis, hypertension, carotid stenosis bilateral, 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 Patient was recently in the hospital with generalized weakness shortness of breath and chest pains and was transferred to [facility] for left and right heart catheterization and she was also started on heparin drip for non-ST elevated PR. During her hospitalization she also seen by nephrology for SHEA and hyponatremia and she received fluids and Lasix and was on fluid restriction 1200 mill per day. At [place] she underwent left and right heart catheterization that showed mild coronary disease, moderate aortic stenosis and severely reba vated right heart pressures indicated of worsening pulmonary hypertension. No intervention was done as pulmonary hypertension was secondary to heart dysfunction and she has been medically optimized for heart failure. Left main coronary stent was patent. Mild to moderate diffuse RCA disease noted ,mild LAD disease and mild proximal left circumflex disease. Patient states since discharge she feeling weak. She is having on and off chest pains. Currently no chest pain. Denies any shortness of breath. No fevers. No cough. She states she is swallowing okay. Had headache earlier but that got resolved. Denies any dizziness. Vision is okay. No sore throat or cough. No nausea. No abdominal pain. Micturating okay. Was constipated yesterday but she took prunes and she moved moved her bowels. Stools are black because she takes iron pills. She states lower extremity edema is somewhat worse. Pain in the lower back Likely secondary to pressure No evidence of local ulceration No evidence of radiation of pain Was advised to change posture Diclofenac cream was applied locally Moist heat was applied as well to improve the pain Will continue current management for low back pain SHEA on CKD stage III- IV Presented with creatinine of 2.5,Baseline creatinine 1.8 Furosemide and losartan are on hold Seems received 500 mL of fluids in the ER and will not give any further IV fluid Repeat labs this morning shows minimal improvement Consult nephrology for further recommendations-appreciate nephrology input and recommendation Remains dehydrated with minimal improvement of kidney function Has been started on minimal dose of dextrose Will monitor PRP-kidney function has been improving Will resume diuretics on discharge as per bin filler HTN on amlodipine coreq dose adjustment per cardio for bradycardia holding losartan and torsemide Doses of amlodipine has been increased to 10 mg and Nitropaste added for better control of blood pressure Coreg has been discontinued Hydralazine was added 50 mg 3 times daily and which can be increased to 75 mg 3 times daily Blood pressure seems to be improving Hyponatremia-chronic Sodium 128 Holding diuretics Will restrict oral intake of fluid to 1.5 L a day Appreciate nephrology input and recommendation Sodium level has been normalized at 135 Has been getting dextrose to prevent repeat increasing sodium Maintain with decreased fluid intake to 1.5 L a day on discharge Chronic diastolic CHF Moderate aortic stenosis Pulmonary hypertension Will hold diuretics for significant dehydration with increasing BUN and creatinine Has lower extremity edema No other signs of fluid overload-nose chest x-ray finding and no shortness of breath Appreciate cardiology input and recommendation Diuretics still on hold Diuretics will be resumed on discharge Recent non-ST elevation PR Elevated troponin-likely complicated by SHEA but doubt any repeat ACS Could be secondary to demand ischemia Will follow serial enzymes-serial cardiac enzymes are minimally elevated but does not support ACS Appreciate cardiology input and recommendation Chronic back pain home pain meds Hyperlipidemia On statin CAD s/p stents Continue home medications aspirin, statin adjustment of coreq dose per cardiology as patient having bradycardia. Denies any cardiac symptoms GERD Hiatal hernia History of esophageal strictures, esophageal dysmotility disorder On PPI Will monitor DVT prophylaxis SCDs Heparin subcu Disposition Telemetry Full code Admission and Anticipated Discharge Date Admission Date: October 18, 2023 Subjective 10/19/2023 Patient was seen and examined in telemetry unit She remains generally weak but has been feeling a little better since admission He was admitted from home with abnormal findings of dehydration and SHEA on outpatient lab Denies any chest pain, palpitation or shortness of breath, no abdominal pain nausea no vomit 10/20/2023 The patient was seen and examined in telemetry unit in presence of the son He has been feeling a little better but complains to pain in the lower back Denies any chest pain, palpitation or shortness of breath at rest Denies any abdominal pain, nausea vomiting or diarrhea 10/21/2023 The patient was seen and examined in telemetry unit She has been feeling much better today Back pain is persisting but is better with use of local heat No radiation of pain Review of Systems Review of Systems: All systems reviewed and are unremarkable except as noted below Physical Exam Physical Exam: Lying on bed without any acute distress Constitutional: + ill appearing and average body habitus Eyes: PERRL, conjunctivae normal, anicteric sclerae ENMT: external ear and nose normal, oropharynx normal Neck: trachea midline, no thyromegaly Respiratory: no respiratory distress Auscultation: lungs clear to auscultation bilaterally Cardiovascular: Rate/Rhythm: regular rate, regular rhythm and + bradycardic Heart Sounds: normal S1, normal S2 and + murmur (2/6 to 3/6 ESM over precordium and aortic) Extremities: + edema (1+ edema bilateral) Gastrointestinal (Abdomen): Inspection/Auscultation: normal bowel sounds; abdomen not distended Percussion/Palpation: abdomen soft; abdomen nontender Musculoskeletal: No acute arthritis involving any of the joint Neurologic: normal touch/pain/proprioception and moves all extremities; no focal motor deficits Psychiatric: A+Ox3, euthymic affect Lymphatic: no cervical or axillary lymphadenopathy Results & Data Results & Data Vital Signs (Past 12 Hours) Vital Signs Temp Pulse Pulse Resp BP Pulse Ox O2 Del Method 10/21/23 11:58 36.8 C 50 L 20 136/42 L 96 Room Air 10/21/23 10:15 152/56 H 10/21/23 09:21 52 L 10/21/23 08:03 36.7 C 55 L 20 186/61 H 93 Room Air 10/21/23 04:15 36.8 C 51 L 16 168/56 H 96 Room Air Laboratory Results BMP 10/20/23 10/21/23 14:24 07:31 Sodium 133 L 134 L Potassium 4.7 4.5 Chloride 103 104 Carbon Dioxide 24 24 BUN 98 H 97 H Creatinine 2.02 H 1.80 H Glucose 141 H 85 Calcium 9.1 9.4 Medications Administered Current Inpatient Medications Acetaminophen (Acetaminophen 325 Mg Tab) 650 mg PO Q4H PRN PRN Reason: Pain or Fever Stop: 11/18/23 00:36 Last Admin: 10/21/23 04:37 Dose: 650 mg Hydrocodone Bitart/Acetaminophen (Hydrocodone/Acetaminophen 10/325 Tab) 1 tab PO BID PRN PRN Reason: Severe Pain (Scale Score 7-10) Stop: 11/02/23 01:55 Last Admin: 10/20/23 22:49 Dose: 1 tab Amlodipine Besylate (Amlodipine Besylate 5 Mg Tab) 10 mg PO DAILY [facility] Stop: 11/20/23 08:59 Last Admin: 10/21/23 08:22 Dose: 10 mg Aspirin (Aspirin 81 Mg Ectab) 81 mg PO DAILY [facility] Stop: 11/18/23 08:59 Last Admin: 10/21/23 08:22 Dose: 81 mg Atorvastatin Calcium (Atorvastatin 20 Mg Tab) 20 mg PO DAILY [facility] Stop: 11/18/23 08:59 Last Admin: 10/21/23 08:21 Dose: 20 mg Diclofenac Sodium (Diclofenac Sod 1% Gel 100 Gm Tube) 2 gm EXT BID [facility]; Protocol Stop: 11/19/23 09:59 Last Admin: 10/21/23 08:23 Dose: 2 gm Heparin Sodium (Porcine) (Heparin Sod 5,000 Unit/0.5 Ml Vial) 5,000 units SQ Q12 [facility] Stop: 11/18/23 08:59 Last Admin: 10/21/23 08:23 Dose: 5,000 units Hydralazine HCl (Hydralazine Tab 50 Mg Tab) 50 mg PO QID [facility] Stop: 11/20/23 12:59 Last Admin: 10/21/23 12:54 Dose: 50 mg Isosorbide Dinitrate (Isosorbide Dinitrate 20 Mg Tab) 20 mg PO BID@0700,1200 [facility] Stop: 11/20/23 09:29 Last Admin: 10/21/23 12:54 Dose: 20 mg Lidocaine (Lidocaine 5% 1 Patch) 1 patch TD DAILY [facility] Stop: 11/19/23 08:59 Last Admin: 10/21/23 08:23 Dose: 1 patch Miscellaneous (Remove Lidoderm Patch) 1 each N/A DAILY@2100 [facility] Stop: 11/19/23 20:59 Last Admin: 10/20/23 20:23 Dose: 1 each Nitroglycerin (Nitroglycerin Sl 0.4 Mg/Tab Tab) 0.4 mg SL Q5M PRN PRN Reason: Chest Pain Stop: 11/18/23 00:36 Pantoprazole Sodium (Pantoprazole 40 Mg Tab) 40 mg PO DAILY [facility] Stop: 11/18/23 08:59 Last Admin: 10/21/23 08:21 Dose: 40 mg Polyethylene Glycol (Polyethylene (Miralax) 17 Gm Pack) 17 gm PO DAILY PRN PRN Reason: Constipation Stop: 11/18/23 00:36 Torsemide (Torsemide 10 Mg Tab) 10 mg PO QAM [facility] Stop: 11/20/23 09:59 Last Admin: 10/21/23 10:17 Dose: 10 mg
[2023-10-22 07:47] LABS: Basophils # (auto) 0.06 K/uL (0.00-0.20); Basophils % (auto) 1.1 %; Eosinophils # (auto) 0.33 K/uL (0.00-0.50); Hematocrit (blood only) 24.8 % (37.0-47.0); Hemoglobin 8.1 g/dl (12.0-16.0); Immature Granulocytes # (auto) 0.02 K/uL (0.01-0.20); Immature Granulocytes % (auto) 0.4 %; Lymphocytes # (auto) 1.08 K/uL (1.20-3.40); Lymphocytes % (auto) 19.7 %; Mean Corpuscular Hemoglobin 29.7 pg (25.0-34.0); Mean Corpuscular Hgb Conc 32.7 g/dL (32.0-36.0); Mean Corpuscular Volume 90.8 fL (80.0-100.0); Mean Platelet Volume 10.8 fL (9.4-12.4); Monocytes # (auto) 0.61 K/uL (0.11-0.59); Monocytes % (auto) 11.1 %; Neutrophils # (auto) 3.39 K/uL (1.40-6.50); Neutrophils % (auto) 61.7 %; Platelet Count 197 K/uL (130-400); RDW Coefficient of Variation 13.9 % (11.5-14.5); RDW Standard Deviation 45.7 fL (36.4-46.3); Red Blood Count 2.73 M/uL (4.20-5.40); White Blood Count 5.49 K/ul (4.8-10.8)
[2023-10-22 08:15] LABS: Calcium 9.2 mg/dl (8.6-10.3); Creatinine Clr Calc Pharmacy 20.1 ml/min; Est GFR (African American) 26.7 ml/min; Magnesium 1.9 mg/dl (1.7-2.4); Potassium 4.5 mmol/L (3.5-5.1)
[2023-10-22 08:25] LABS: Troponin I High Sensitivity 117.7 pg/ml (0-14)
--- NOTE | 2023-10-22 11:24 | Cardiology Progress Note ---
Date of Service October 22, 2023 Assessment & Plan (1) SHEA (acute kidney injury): (2) CKD (chronic kidney disease) stage 4, GFR 15-29 ml/min: (3) Chronic hyponatremia: (4) Chronic heart failure with preserved ejection fraction (HFpEF): (5) Aortic stenosis: (6) Elevated troponin: (7) Hypertension: Plan Assessment: 78 year old female presents for evaluation s/t worsening renal function, and weakness. SHEA on CKD with hyponatremia in the setting of known chronic HF and valvular dysfunction. Plan: 1. SHEA 2. CKD 3. Hyponatremia: -Patient with recent hospitalization for NSTEMI and HF exacerbation. OP labs revealed worsening renal function and ongoing hyponatremia. Continue to hold diuretics, Discontinue losartan as Titus-I/ARBS are not generally recommended in the setting of aortic stenosis. Agree with gentle IV fluid resuscitation and close monitoring of fluid status including Strict I&Os/daily weights. -repeat labs in the AM, reassess medication therapies. -Cause of her SHEA is likely multifactorial in the setting of known CKD, recent NSTEMI in which patient received IV contrast for cardiac catheterization, and medication adjustments including increase of Losartan and continue diuretics. -Exhibits mild volume overload on exam, not far from her baseline. Nephrology also on consult, will appreciate recommendations. 4. chronic HFpEF -Exhibits mild lower extremity edema, which is close to her baseline. Offers no complaints of chest pain or dyspnea. Demonstrates no respiratory distress. -Continue to hold diuretics and discontinue Losartan. -Reassess labs in the morning. -Coreg on hold s/t bradycardia, monitor closely. No evidence of high grade heart block or sinus pause on telemetry. -May continue Hydralazine 5. Aortic stenosis: -Moderate as per recent echocardiogram. -Monitor fluid status closely. -Recommend avoiding TITUS-I/ARB medications 6. Elevated troponin: -patient with chronic elevation as well as in the setting of recent NSTEMI - No acute EKG changes to suggest ischemia -SHEA on CKD contributing factor. 7. HTN: -High end of target today. -Continue Hydralazine, and Amlodipine. 10/20/2023 Renal function improving slowly Patient hypertensive and possibly being driven by pain and discomfort Plan as outlined by nephrology regarding follow-up renal function Will treat hypertension Hold diuretics Increase amlodipine to 10 mg p.o. daily, add topical nitrates 1/2 inch every 6 with hold parameters at systolic BP 120 mmHg 10/21/2023 Clinically appears improved on examination. Renal function improved Blood pressures trending higher Will avoid carvedilol given resting bradycardia Change topical nitrates to low-dose oral Increase hydralazine to 4 times daily dosing initially 50 mg. Will likely transition to 75 mg 3 times daily as tolerated 10/22/2023: Atypical left arm pain noted last night. Flat HS troponin. EKG without ischemic changes. Currently asymptomatic. Likely musculoskeletal in nature based on description. BP improved over the last 24 hours. Continue amlodipine 10 mg, Isosorbide dinitrate 20 BID, hydralazine 50 QID, and torsemide 10 mg daily Coreg discontinued due to bradycardia. Losartan discontinued due to SHEA and aortic stenosis. Encourage ambulation and possible PT today. If feeling well, possible discharge this afternoon. Will arrange cardiology follow up in 2-4 weeks. May need close f/u with valve clinic given recurrent CHF exacerbation and moderate . Case discussed with Dr. Sanabria I spent a total of 35 minutes on the date of service in preparation, delivery, and documentation of the care provided to this patient, excluding any time spent in the performance of separately billed services. Donna Silverio PA-C Department of Cardiology, [facility] This chart was completed in part utilizing Speech Voice Recognition Software. Grammatical errors, random word insertions, pronoun errors, and incomplete sentences are an occasional consequence of this system due to software limitations, ambient noise, and hardware issues. Any formal questions or concern s about the content, text, or information contained within the body of this dictation should be directly addressed to the provider for clarification. Admission and Anticipated Discharge Date Admission Date: October 18, 2023 Supervising Physician Co-Signing Physician Notes Cardiology attending: Case discussed with Donna Lamas PA-C. Agree with findings and plans as documented. Unfortunately, patient discharged prior to me having the opportunity to examine her in person. Albert Sanabria, DO Subjective Patient resting in chair. Feeling well this morning. Family at bedside. Blood pressure has been much improved over the last 24 hours. Prior headache resolved. No chest pain. Shortness of breath improved. Chronic lower extremity edema unchanged. Patient reports she had mild left shoulder and arm discomfort last evening. Symptoms resolved with repositioning. She had EKG at the time demosntrating sinus aren without acute ischemic changes. HS troponin minmally elevated but flat and consistent with prior evaluations. No recurrence through the night or this morning. Review of Systems Review of Systems: All systems reviewed & are unremarkable except as noted in HPI & below Physical Exam Constitutional: well developed and well nourished; no acute distress Neck: normal visual inspection and trachea midline Respiratory: normal respiratory effort; no respiratory distress, no labored breathing, no cough and not tachypneic Auscultation: lungs clear to auscultation bilaterally; no crackles, no rales, no rhonchi and no wheezes Cardiovascular: Rate/Rhythm: + bradycardic Heart Sounds: normal S1, normal S2 and + murmur (2/6 systolic ) Vessels: dorsalis pedis pulses present; no JVD Extremities: + edema (trace BLE) Skin: no rashes, warm and dry Psychiatric: A+Ox3, euthymic affect Results & Data Vital Signs (Past 12 Hours) Vital Signs Temp Pulse Resp BP Pulse Ox O2 Del Method 10/22/23 10:20 130/56 L 10/22/23 08:30 36.7 C 54 L 16 125/83 97 Room Air 10/22/23 02:44 36.9 C 56 L 18 155/46 H 94 Room Air Laboratory Results Cardiac Enzymes 10/21/23 10/22/23 Range/Units 22:29 07:03 Troponin I High Sens 122.7 H* 117.7 H* (0-14) pg/ml CBC 10/22/23 Range/Units 07:03 WBC 5.49 (4.8-10.8) K/ul RBC 2.73 L (4.20-5.40) M/uL Hgb 8.1 L (12.0-16.0) g/dl Hct 24.8 L (37.0-47.0) % Plt Count 197 (130-400) K/uL Neut # (Auto) 3.39 (1.40-6.50) K/uL Lymph # (Auto) 1.08 L (1.20-3.40) K/uL [place] # (Auto) 0.61 H (0.11-0.59) K/uL Eos # (Auto) 0.33 (0.00-0.50) K/uL Baso # (Auto) 0.06 (0.00-0.20) K/uL Comprehensive Metabolic Panel 10/22/23 Range/Units 07:03 Sodium 136 (136-145) mmol/L Potassium 4.5 (3.5-5.1) mmol/L Chloride 106 (98-107) mmol/L Carbon Dioxide 21 (21-32) mmol/L BUN 96 H (6-23) mg/dl Creatinine 2.00 H (0.6-1.2) mg/dl Glucose 86 (70-99(Fasting)) mg/dl Calcium 9.2 (8.6-10.3) mg/dl Intake and Output 10/21/23 10/22/23 10/22/23 22:59 06:59 14:59 Intake Total 50 / 530 Balance 50 / 530 Intake: Oral 50 / 530 Other: # Unmeasured Voids 1 1 Weight 63.2 kg Weight Measurement Method Built in [facility] Diagnostic Findings Telemetry reviewed: Sinus bradycardia ranging 50 to 60 bpm with occasional PVC and PAC. EKG last evening 10/21/23: Sinus bradycardia with 1st degree A-V block Left axis deviation Left ventricular hypertrophy with QRS widening and repolarization abnormality Abnormal ECG When compared with ECG of 18-OCT-2023 22:07, Minimal criteria for Septal infarct are no longer Present Medications Administered Current Inpatient Medications Acetaminophen (Acetaminophen 325 Mg Tab) 650 mg PO Q4H PRN PRN Reason: Pain or Fever Stop: 11/18/23 00:36 Last Admin: 10/22/23 06:26 Dose: 650 mg Hydrocodone Bitart/Acetaminophen (Hydrocodone/Acetaminophen 10/325 Tab) 1 tab PO BID PRN PRN Reason: Severe Pain (Scale Score 7-10) Stop: 11/02/23 01:55 Last Admin: 10/21/23 21:59 Dose: 1 tab Amlodipine Besylate (Amlodipine Besylate 5 Mg Tab) 10 mg PO DAILY [facility] Stop: 11/20/23 08:59 Last Admin: 10/22/23 09:20 Dose: 10 mg Aspirin (Aspirin 81 Mg Ectab) 81 mg PO DAILY [facility] Stop: 11/18/23 08:59 Last Admin: 10/22/23 09:20 Dose: 81 mg Atorvastatin Calcium (Atorvastatin 20 Mg Tab) 20 mg PO DAILY [facility] Stop: 11/18/23 08:59 Last Admin: 10/22/23 09:20 Dose: 20 mg Diclofenac Sodium (Diclofenac Sod 1% Gel 100 Gm Tube) 2 gm EXT BID [facility]; Protocol Stop: 11/19/23 09:59 Last Admin: 10/22/23 09:22 Dose: 2 gm Heparin Sodium (Porcine) (Heparin Sod 5,000 Unit/0.5 Ml Vial) 5,000 units SQ Q12 [facility] Stop: 11/18/23 08:59 Last Admin: 10/22/23 09:22 Dose: 5,000 units Hydralazine HCl (Hydralazine Tab 50 Mg Tab) 50 mg PO QID [facility] Stop: 11/20/23 12:59 Last Admin: 10/22/23 09:21 Dose: 50 mg Isosorbide Dinitrate (Isosorbide Dinitrate 20 Mg Tab) 20 mg PO BID@0700,1200 [facility] Stop: 11/20/23 09:29 Last Admin: 10/22/23 06:45 Dose: 20 mg Lidocaine (Lidocaine 5% 1 Patch) 1 patch TD DAILY [facility] Stop: 11/19/23 08:59 Last Admin: 10/22/23 09:22 Dose: 1 patch Miscellaneous (Remove Lidoderm Patch) 1 each N/A DAILY@2100 [facility] Stop: 11/19/23 20:59 Last Admin: 10/21/23 20:43 Dose: 1 each Nitroglycerin (Nitroglycerin Sl 0.4 Mg/Tab Tab) 0.4 mg SL Q5M PRN PRN Reason: Chest Pain Stop: 11/18/23 00:36 Pantoprazole Sodium (Pantoprazole 40 Mg Tab) 40 mg PO DAILY [facility] Stop: 11/18/23 08:59 Last Admin: 10/22/23 09:19 Dose: 40 mg Polyethylene Glycol (Polyethylene (Miralax) 17 Gm Pack) 17 gm PO DAILY PRN PRN Reason: Constipation Stop: 11/18/23 00:36 Torsemide (Torsemide 10 Mg Tab) 10 mg PO QAM [facility] Stop: 11/20/23 09:59 Last Admin: 10/22/23 10:22 Dose: 10 mg (5) Aortic stenosis Cardiac valve disease etiology: nonrheumatic Qualified Code(s): I35.0 - Nonrheumatic aortic (valve) stenosis
--- NOTE | 2023-10-22 13:34 | Hospitalist Progress Note ---
Date of Service October 22, 2023 Assessment & Plan (1) SHEA (acute kidney injury): Plan: 78-year-old female with past medical history significant for hyperlipidemia, COPD, peripheral artery disease, chronic diastolic CHF, pulmonary hypertension, history of CAD s/p left main stent, moderate to severe aortic valve stenosis, hypertension, carotid stenosis bilateral, 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 Patient was recently in the hospital with generalized weakness shortness of breath and chest pains and was transferred to [facility] for left and right heart catheterization and she was also started on heparin drip for non-ST elevated NC. During her hospitalization she also seen by nephrology for SHEA and hyponatremia and she received fluids and Lasix and was on fluid restriction 1200 mill per day. At [place] she underwent left and right heart catheterization that showed mild coronary disease, moderate aortic stenosis and severely elev ated right heart pressures indicated of worsening pulmonary hypertension. No intervention was done as pulmonary hypertension was secondary to heart dysfunction and she has been medically optimized for heart failure. Left main coronary stent was patent. Mild to moderate diffuse RCA disease noted ,mild LAD disease and mild proximal left circumflex disease. Patient states since discharge she feeling weak. She is having on and off chest pains. Currently no chest pain. Denies any shortness of breath. No fevers. No cough. She states she is swallowing okay. Had headache earlier but that got resolved. Denies any dizziness. Vision is okay. No sore throat or cough. No nausea. No abdominal pain. Micturating okay. Was constipated yesterday but she took prunes and she moved moved her bowels. Stools are black because she takes iron pills. She states lower extremity edema is somewhat worse. Pain in the lower back Likely secondary to pressure No evidence of local ulceration No evidence of radiation of pain Was advised to change posture Diclofenac cream was applied locally Moist heat was applied as well to improve the pain Will continue current management for low back pain Her pain seems to be reasonably controlled SHEA on CKD stage III- IV Presented with creatinine of 2.5,Baseline creatinine 1.8 Furosemide and losartan are on hold Seems received 500 mL of fluids in the ER and will not give any further IV fluid Repeat labs this morning shows minimal improvement Consult nephrology for further recommendations-appreciate nephrology input and recommendation Remains dehydrated with minimal improvement of kidney function Has been started on minimal dose of dextrose Will monitor PRP-kidney function has been improving Will resume diuretics on discharge as per prom burn off operator Kidney function is slightly worse and the diuretics have been adjusted HTN on amlodipine coreq dose adjustment per cardio for bradycardia holding losartan and torsemide Doses of amlodipine has been increased to 10 mg and Nitropaste added for better control of blood pressure Coreg has been discontinued Hydralazine was added 50 mg 3 times daily and which can be increased to 75 mg 3 times daily Blood pressure seems to be improving Blood pressure remains stable today Hyponatremia-chronic Sodium 128 Holding diuretics Will restrict oral intake of fluid to 1.5 L a day Appreciate nephrology input and recommendation Sodium level has been normalized at 135 Has been getting dextrose to prevent repeat increasing sodium Maintain with decreased fluid intake to 1.5 L a day on discharge Sodium level has been normalized Chronic diastolic CHF Moderate aortic stenosis Pulmonary hypertension Will hold diuretics for significant dehydration with increasing BUN and creatinine Has lower extremity edema No other signs of fluid overload-nose chest x-ray finding and no shortness of breath Appreciate cardiology input and recommendation Diuretics still on hold Diuretics will be resumed on discharge Will get torsemide 10 mg daily on discharge Recent non-ST elevation NC Elevated troponin-likely complicated by SHEA but doubt any repeat ACS Could be secondary to demand ischemia Will follow serial enzymes-serial cardiac enzymes are minimally elevated but does not support ACS Appreciate cardiology input and recommendation Chronic back pain home pain meds Hyperlipidemia On statin CAD s/p stents Continue home medications aspirin, statin adjustment of coreq dose per cardiology as patient having bradycardia. Denies any cardiac symptoms GERD Hiatal hernia History of esophageal strictures, esophageal dysmotility disorder On PPI Will monitor DVT prophylaxis SCDs Heparin subcu Disposition Telemetry Full code Admission and Anticipated Discharge Date Admission Date: October 18, 2023 Subjective 10/19/2023 Patient was seen and examined in telemetry unit She remains generally weak but has been feeling a little better since admission He was admitted from home with abnormal findings of dehydration and SHEA on outpatient lab Denies any chest pain, palpitation or shortness of breath, no abdominal pain nausea no vomit 10/20/2023 The patient was seen and examined in telemetry unit in presence of the son He has been feeling a little better but complains to pain in the lower back Denies any chest pain, palpitation or shortness of breath at rest Denies any abdominal pain, nausea vomiting or diarrhea 10/21/2023 The patient was seen and examined in telemetry unit She has been feeling much better today Back pain is persisting but is better with use of local heat No radiation of pain 10/22/2023 The patient was seen and examined in telemetry unit She has been feeling much better Has had some issues with left leg, she feels it is likely due to not moving that much She denies any other symptoms She will have PT and OT evaluation today and will be discharged home this af ternoon Review of Systems Review of Systems: All systems reviewed and are unremarkable except as noted below Physical Exam Physical Exam: Lying on bed without any acute distress Constitutional: + ill appearing and average body habitus Eyes: PERRL, conjunctivae normal, anicteric sclerae ENMT: external ear and nose normal, oropharynx normal Neck: trachea midline, no thyromegaly Respiratory: no respiratory distress Auscultation: lungs clear to auscultation bilaterally Cardiovascular: Rate/Rhythm: regular rate, regular rhythm and + bradycardic Heart Sounds: normal S1, normal S2 and + murmur (2/6 to 3/6 ESM over precordium and aortic) Extremities: + edema (1+ edema bilateral) Gastrointestinal (Abdomen): Inspection/Auscultation: normal bowel sounds; abdomen not distended Percussion/Palpation: abdomen soft; abdomen nontender Neurologic: normal touch/pain/proprioception and moves all extremities; no focal motor deficits Psychiatric: A+Ox3, euthymic affect Lymphatic: no cervical or axillary lymphadenopathy Results & Data Results & Data Vital Signs (Past 12 Hours) Vital Signs Temp Pulse Pulse Resp BP Pulse Ox O2 Del Method 10/22/23 12:30 36.9 C 55 L 17 128/45 L 98 Room Air 10/22/23 11:57 53 L 10/22/23 10:20 130/56 L 10/22/23 08:30 36.7 C 54 L 16 125/83 97 Room Air 10/22/23 02:44 36.9 C 56 L 18 155/46 H 94 Room Air Laboratory Results Short CBC 10/22/23 Range/Units 07:03 WBC 5.49 (4.8-10.8) K/ul Hgb 8.1 L (12.0-16.0) g/dl Hct 24.8 L (37.0-47.0) % Plt Count 197 (130-400) K/uL [facility] 10/22/23 07:03 Sodium 136 Potassium 4.5 Chloride 106 Carbon Dioxide 21 BUN 96 H Creatinine 2.00 H Glucose 86 Calcium 9.2 Medications Administered Current Inpatient Medications Acetaminophen (Acetaminophen 325 Mg Tab) 650 mg PO Q4H PRN PRN Reason: Pain or Fever Stop: 11/18/23 00:36 Last Admin: 10/22/23 06:26 Dose: 650 mg Hydrocodone Bitart/Acetaminophen (Hydrocodone/Acetaminophen 10/325 Tab) 1 tab PO BID PRN PRN Reason: Severe Pain (Scale Score 7-10) Stop: 11/02/23 01:55 Last Admin: 10/21/23 21:59 Dose: 1 tab Amlodipine Besylate (Amlodipine Besylate 5 Mg Tab) 10 mg PO DAILY [facility] Stop: 11/20/23 08:59 Last Admin: 10/22/23 09:20 Dose: 10 mg Aspirin (Aspirin 81 Mg Ectab) 81 mg PO DAILY [facility] Stop: 11/18/23 08:59 Last Admin: 10/22/23 09:20 Dose: 81 mg Atorvastatin Calcium (Atorvastatin 20 Mg Tab) 20 mg PO DAILY [facility] Stop: 11/18/23 08:59 Last Admin: 10/22/23 09:20 Dose: 20 mg Diclofenac Sodium (Diclofenac Sod 1% Gel 100 Gm Tube) 2 gm EXT BID [facility]; Protocol Stop: 11/19/23 09:59 Last Admin: 10/22/23 09:22 Dose: 2 gm Heparin Sodium (Porcine) (Heparin Sod 5,000 Unit/0.5 Ml Vial) 5,000 units SQ Q12 [facility] Stop: 11/18/23 08:59 Last Admin: 10/22/23 09:22 Dose: 5,000 units Hydralazine HCl (Hydralazine Tab 50 Mg Tab) 50 mg PO QID [facility] Stop: 11/20/23 12:59 Last Admin: 10/22/23 12:37 Dose: 50 mg Isosorbide Dinitrate (Isosorbide Dinitrate 20 Mg Tab) 20 mg PO BID@0700,1200 [facility] Stop: 11/20/23 09:29 Last Admin: 10/22/23 12:37 Dose: 20 mg Lidocaine (Lidocaine 5% 1 Patch) 1 patch TD DAILY [facility] Stop: 11/19/23 08:59 Last Admin: 10/22/23 09:22 Dose: 1 patch Miscellaneous (Remove Lidoderm Patch) 1 each N/A DAILY@2100 [facility] Stop: 11/19/23 20:59 Last Admin: 10/21/23 20:43 Dose: 1 each Nitroglycerin (Nitroglycerin Sl 0.4 Mg/Tab Tab) 0.4 mg SL Q5M PRN PRN Reason: Chest Pain Stop: 11/18/23 00:36 Pantoprazole Sodium (Pantoprazole 40 Mg Tab) 40 mg PO DAILY [facility] Stop: 11/18/23 08:59 Last Admin: 10/22/23 09:19 Dose: 40 mg Polyethylene Glycol (Polyethylene (Miralax) 17 Gm Pack) 17 gm PO DAILY PRN PRN Reason: Constipation Stop: 11/18/23 00:36 Torsemide (Torsemide 10 Mg Tab) 10 mg PO QAM MELLISA Stop: 11/20/23 09:59 Last Admin: 10/22/23 10:22 Dose: 10 mg
--- NOTE | 2023-10-23 07:21 | Discharge Summary ---
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 Patient was recently in the hospital with generalized weakness shortness of breath and chest pains and was transferred to [facility] for left and right heart catheterization and she was also started on heparin drip for non-ST elevated MO. During her hospitalization she also seen by nephrology for SHEA and hyponatremia and she received fluids and Lasix and was on fluid restriction 1200 mill per day. At [place] she underwent left and right heart catheterization that showed mild coronary disease, moderate aortic stenosis and severely elevated right heart pressures indicated of worsening pulmonary hypertension. No intervention was done as pulmonary hypertension was secondary to heart dysfunction and she has been medically optimized for heart failure. Left main coronary stent was patent. Mild to moderate diffuse RCA disease noted ,mild LAD disease and mild proximal left circumflex disease. Patient states since discharge she feeling weak. She is having on and off chest pains. Currently no chest pain. Denies any shortness of breath. No fevers. No cough. She states she is swallowing okay. Had headache earlier but that got resolved. Denies any dizziness. Vision is okay. No sore throat or cough. No nausea. No abdominal pain. Micturating okay. Was constipated yesterday but she took prunes and she moved moved her bowels. Stools are black because she takes iron pills. She states lower extremity edema is somewhat worse. Past medical history. As mentioned above Past surgical history. Left knee arthroplasty. Left and right heart catheterization. Cardiac stent. EGD. EGD with biopsy. EGD with endoscopic ultrasound. Laparoscopic cholecystectomy with cholangiography. Right carpal tunnel surgery. Colonoscopy with biopsy. Appendectomy. Oophorectomy. Repair of umbilical hernia. Sacroiliac joint injection. Diagnostic sigmoidoscopy. Vaginal hysterectomy. Social history. Lives alone. Son lives close by. Quit smoking in 1976. Smoked 3 packs a day for 30 years. Alcohol rarely. No drug use. Family history. Father had arthritis. Cancer. Diabetes. Hypertension. Mother had CABG. Alzheimer's. Sister has hypertension. Arthritis. Admission Exam Per Admitting Provider Physical Exam: General- Not in distress Head- atraumatic Eyes- PERRL. ENT- oropharynx clear, moist Neck- supple, no JVD. Lungs- clear to auscultation no wheezing or crackles. Heart- regular rate and rhythm; ESM murmur aortic area, no gallop. Abdomen- normal bowel sounds, soft, nontender, no distension. Extremities- b/l lower extremity gross edema present, no erythema seen Neuro- alert, oriented ; PERRL, no facial palsy; no dysarthria; moves extremities. Skin- warm & dry Principal Diagnosis SHEA on CKD, hypertension, chronic diastolic CHF Discharge Exam Lying on bed without any acute distress Constitutional + ill appearing and average body habitus Eyes PERRL, conjunctivae normal, anicteric sclerae ENMT external ear and nose normal, oropharynx normal Neck trachea midline, no thyromegaly Respiratory no respiratory distress Auscultation: lungs clear to auscultation bilaterally Cardiovascular Rate/Rhythm: regular rate, regular rhythm and + bradycardic Heart Sounds: normal S1, normal S2 and + murmur (2/6 to 3/6 ESM over precordium and aortic) Extremities: + edema (1+ edema bilateral) Gastrointestinal (Abdomen) Inspection/Auscultation: normal bowel sounds; abdomen not distended Percussion/Palpation: abdomen soft; abdomen nontender Neurologic normal touch/pain/proprioception and moves all extremities; no focal motor deficits Psychiatric A+Ox3, euthymic affect Lymphatic no cervical or axillary lymphadenopathy Discharge Data Allergies Allergy/AdvReac Type Severity Reaction Status Date / Time gabapentin AdvReac Intermediate cough Verified 10/07/23 17:13 oxycodone AdvReac Intermediate "makes me Verified 10/07/23 17:13 go crazy" ramipril AdvReac Intermediate cough Verified 10/07/23 17:13 Consultations 10/18/23 22:58 ED Decision to Admit Stat 10/19/23 08:00 Consult Cardiology Routine Consult Nephrology Routine Hospital Course (1) SHEA (acute kidney injury): 78-year-old female with past medical history significant for hyperlipidemia, COPD, peripheral artery disease, chronic diastolic CHF, pulmonary hypertension, history of CAD s/p left main stent, moderate to severe aortic valve stenosis, hypertension, carotid stenosis bilateral, 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 Patient was recently in the hospital with generalized weakness shortness of breath and chest pains and was transferred to [facility] for left and right heart catheterization and she was also started on heparin drip for non-ST elevated MO. During her hospitalization she also seen by nephrology for SHEA and hyponatremia and she received fluids and Lasix and was on fluid restriction 1200 mill per day. At [place] she underwent left and right heart catheterization that showed mild coronary disease, moderate aortic stenosis and severely elevated right heart pressures indicated of worsening pulmonary hypertension. No intervention was done as pulmonary hypertension was secondary to heart dysfunction and she has been medically optimized for heart failure. Left main coronary stent was patent. Mild to moderate diffuse RCA disease noted ,mild LAD disease and mild proximal left circumflex disease. Patient states since discharge she feeling weak. She is having on and off chest pains. Currently no chest pain. Denies any shortness of breath. No fevers. No cough. She states she is swallowing okay. Had headache earlier but that got resolved. Denies any dizziness. Vision is okay. No sore throat or cough. No nausea. No abdominal pain. Micturating okay. Was constipated yesterday but she took prunes and she moved moved her bowels. Stools are black because she takes iron pills. She states lower extremity edema is somewhat worse. Pain in the lower back Likely secondary to pressure No evidence of local ulceration No evidence of radiation of pain Was advised to change posture Diclofenac cream was applied locally Moist heat was applied as well to improve the pain Will continue current management for low back pain Her pain seems to be reasonably controlled SHEA on CKD stage III- IV Presented with creatinine of 2.5,Baseline creatinine 1.8 Furosemide and losartan are on hold Seems received 500 mL of fluids in the ER and will not give any further IV fluid Repeat labs this morning shows minimal improvement Consult nephrology for further recommendations-appreciate nephrology input and recommendation Remains dehydrated with minimal improvement of kidney function Has been started on minimal dose of dextrose Will monitor PRP-kidney function has been improving Will resume diuretics on discharge as per flare man Kidney function is slightly worse and the diuretics have been adjusted HTN on amlodipine coreq dose adjustment per cardio for bradycardia holding losartan and torsemide Doses of amlodipine has been increased to 10 mg and Nitropaste added for better control of blood pressure Coreg has been discontinued Hydralazine was added 50 mg 3 times daily and which can be increased to 75 mg 3 times daily Blood pressure seems to be improving Blood pressure remains stable today Hyponatremia-chronic Sodium 128 Holding diuretics Will restrict oral intake of fluid to 1.5 L a day Appreciate nephrology input and recommendation Sodium level has been normalized at 135 Has been getting dextrose to prevent repeat increasing sodium Maintain with decreased fluid intake to 1.5 L a day on discharge Sodium level has been normalized Chronic diastolic CHF Moderate aortic stenosis Pulmonary hypertension Will hold diuretics for significant dehydration with increasing BUN and creatinine Has lower extremity edema No other signs of fluid overload-nose chest x-ray finding and no shortness of breath Appreciate cardiology input and recommendation Diuretics still on hold Diuretics will be resumed on discharge Will get torsemide 10 mg daily on discharge Recent non-ST elevation [place] Elevated troponin-likely complicated by SHEA but doubt any repeat ACS Could be secondary to demand ischemia Will follow serial enzymes-serial cardiac enzymes are minimally elevated but does not support ACS Appreciate cardiology input and recommendation Chronic back pain home pain meds Hyperlipidemia On statin CAD s/p stents Continue home medications aspirin, statin adjustment of coreq dose per cardiology as patient having bradycardia. Denies any cardiac symptoms GERD Hiatal hernia History of esophageal strictures, esophageal dysmotility disorder On PPI Will monitor DVT prophylaxis SCDs Heparin subcu Disposition Telemetry Full code Total Time Total Time Spent Total Time Spent (In Minutes): 40 minutes Discharge Plan Discharge Items Patient Disposition: Home - Home Health Services Reason For Visit: SHEA, HYPONATREMIA Discharge Diagnosis: SHEA on CKD, hypertension, chronic diastolic CHF Activity: As commented below Activity Comment: Continue with home PT Non-emergency contact: Primary Care Provider Call non-emergency contact if: you have any medication questions and your symptoms worsen Follow-up/Referrals: Nanci Hein MD, PhD [Physician] - (The Nephrology office will contact you for a follow up appointment/testing.) Jazzy Appiah DO [Primary Care Provider] - (Date & Time 10/26/2023 11:50 AM Provider Jazzy Appiah DO Department Family Medicine [facility] ) Donna Silverio PA-C [Physician Resource Center Teacher] - (The Cardiology office will contact you for a follow up appointment.) Diet: Heart Healthy Fluids: 1500ml (6 cups) Addtl Attending Provider Instructions: Please take precautions to avoid falls Take your medications as advised Take torsemide 10 mg p.o. daily Your Coreg and losartan have been discontinued, amlodipine doses have been increased and hydralazine was given 4 times a day Continue with the home PT Please keep appointments with healthcare providers Pending Studies at Discharge: No Stand-Alone Forms: My [facility] [email or web address], Smoking Cessation Medications and DC Order Prescriptions: New amlodipine [Norvasc] 5 mg Tablet 10 mg PO DAILY Qty: 60 0RF isosorbide dinitrate 20 mg Tablet 20 mg PO BID@0700,1200 Qty: 60 0RF lidocaine 5 % Adhesive Patch,Medicated 1 patch transdermal DAILY Qty: 30 0RF hydralazine 50 mg Tablet 50 mg PO QID Qty: 120 0RF diclofenac sodium [Voltaren Arthritis Pain] 1 % Gel 2 g EXT BID Qty: 50 0RF Continued atorvastatin 20 mg tablet 20 mg PO DAILY hydrocodone-acetaminophen 10-325 mg tablet 1 tab PO BID PRN (Reason: Severe Pain (Scale Score 7-10)) omeprazole 20 mg capsule,delayed release(DR/EC) 20 mg PO DAILY aspirin 81 mg Tablet,Delayed Release (Dr/Ec) 81 mg PO DAILY Changed torsemide 10 mg tablet 10 mg PO DAILY Qty: 1 0RF Discontinued losartan 50 mg tablet 50 mg PO DAILY carvedilol 6.25 mg tablet 12.5 mg PO BID amlodipine 5 mg tablet 7.5 mg PO DAILY hydralazine 50 mg tablet 50 mg PO TID Discharge Orders: Discharge Order (Routine); Ordered 10/22/23 Ordered By: Rochelle Herrera Admission Data Admit Date/Time: 10/18/23 23:41 Attending Provider: Rochelle Herrera Admit Provider: Kye Sapp Primary Care Provider: Jazzy Appiah Other Providers: Kye Sapp; Chris Schwartz; Nanci Hein Other Interventions: Discharge Summary Assessment (RN) Last Done: 10/22/23 16:44
--- NOTE | 2023-10-24 13:15 | Electrocardiogram Report ---
Test Reason : Blood Pressure : / mmHG Vent. Rate : 056 BPM Atrial Rate : 056 BPM P-R Int : 210 ms QRS Dur : 124 ms QT Int : 438 ms P-R-T Axes : 090 -34 095 degrees QTc Int : 422 ms Sinus bradycardia with 1st degree A-V block Left axis deviation Left ventricular hypertrophy with QRS widening and repolarization abnormality Abnormal ECG When compared with ECG of 18-OCT-2023 22:07, No significant change Confirmed by Domingo Sam ([id number]) on 10/24/2023 1:14:36 PM Referred By: REFERRED SELF Confirmed By:Domingo Sam
== END 2023-10-22 16:52 | disposition home health service (06) | DRG 682 ==
LOC: ED 21:05 → EDINP 23:41 → 2E 10-19 00:38

== ENCOUNTER 2023-11-05 17:26 | Inpatient (IN) ==
--- NOTE | 2023-11-05 17:33 | ED Triage Note ---
Date of Service November 05, 2023 Provider in Triage Author: Cameron Gardner A History of Present Illness This patient was briefly evaluated while in triage. An abbreviated physical exam was performed. This patient is a 78-year-old Female who presents to the ED for evaluation of fatigued and inability to sleep. Reports 4 hours of sleep in last 5 nights. Home nursing called out to PCP, and referred to Er. Feels increased weakness. Physical Exam Limited Triage Exam: VITALS: Vitals are noted on the nurse's note and reviewed by myself. Vital signs stable. GENERAL: Elderly white female in NAD. Seated in a wheelchair. HEART: Regular rate and rhythm without murmurs gallops or rubs. LUNGS: Clear to auscultation bilaterally without wheezes, rales or rhonchi. No retractions or accessory muscle use. NEURO: Patient was alert and oriented to person place and time. CN II through XII grossly intact. Initial orders for labs and / or imaging were placed and patient was placed in the waiting area until a bed is available. Please see further documentation for the full ED course. MDM / Impression Impression Impression: Generalized weakness, Elevated troponin, Insomnia, Abnormal ECG
[2023-11-05 18:22] LABS: Basophils # (auto) 0.07 K/uL (0.00-0.20); Basophils % (auto) 1.1 %; Eosinophils # (auto) 0.36 K/uL (0.00-0.50); Eosinophils % (auto) 5.5 %; Hematocrit (blood only) 28.4 % (37.0-47.0); Hemoglobin 9.5 g/dl (12.0-16.0); Immature Granulocytes # (auto) 0.01 K/uL (0.01-0.20); Immature Granulocytes % (auto) 0.2 %; Lymphocytes # (auto) 0.59 K/uL (1.20-3.40); Mean Corpuscular Hemoglobin 29.3 pg (25.0-34.0); Mean Corpuscular Hgb Conc 33.5 g/dL (32.0-36.0); Mean Corpuscular Volume 87.7 fL (80.0-100.0); Mean Platelet Volume 9.6 fL (9.4-12.4); Monocytes # (auto) 0.61 K/uL (0.11-0.59); Monocytes % (auto) 9.3 %; Neutrophils # (auto) 4.93 K/uL (1.40-6.50); Neutrophils % (auto) 74.9 %; Platelet Count 305 K/uL (130-400); RDW Coefficient of Variation 13.8 % (11.5-14.5); RDW Standard Deviation 44.3 fL (36.4-46.3); Red Blood Count 3.24 M/uL (4.20-5.40); White Blood Count 6.57 K/ul (4.8-10.8)
[2023-11-05 18:40] LABS: Albumin Globulin Ratio 1.1 (0.9-2); BUN Creatinine Ratio 27.5 (10-20); Bilirubin,Total 0.6 mg/dl (0.2-1.0); Calcium 9.8 mg/dl (8.6-10.3); Creatinine Clr Calc Pharmacy 21.7 ml/min; Est GFR (African American) 32.2 ml/min; Est GFR (Non-African American) 27.8 ml/min; Globulin 3.7 gm/dl (2.5-4.0); Magnesium 1.7 mg/dl (1.7-2.4); Potassium 4.1 mmol/L (3.5-5.1); Total Protein 7.7 gm/dl (6.0-8.3)
[2023-11-05 18:54] LABS: Thyroid Stimulating Hormone 2.508 uIu/ml (0.300-4.500)
--- NOTE | 2023-11-05 19:20 | XRay Report ---
SINGLE VIEW CHEST CLINICAL HISTORY: Generalized weakness. FINDINGS: An AP, portable, upright chest radiograph is compared to study dated 10/18/2023 and correlat ed with chest CT dated 06/16/2022. A hiatal hernia is noted. The heart Is enlarged noting atheroscler otic calcification of the thoracic aorta. Mitral annulus is densely calcified. The pulmonary vasculat ure is noncongested. Chronic interstitial thickening is similar to previous. There is mild bibasilar scarring/atelectasis. Small pleural effusions are suspected. There is no airspace consolidation typic al for pneumonia. No pneumothorax is seen. The skeletal structures are osteopenic. The bony thorax is grossly intact. Degenerative change is noted in the shoulders and spine. IMPRESSION: 1. Cardiomegaly without radiographic evidence of congestive failure. 2. Suspect small pleural effusions. ACT 112: Negative or not required by law. Electronically signed by: Bernabe Pressley M.D. 11/05/2023 7:18 PM
[2023-11-05 19:34] LABS: Adenovirus PCR Not Detected (NotDetected); Bordetella parapertussis PCR Not Detected (NotDetected); Bordetella pertussis PCR Not Detected (NotDetected); Chlamydia pneumoniae PCR Not Detected (NotDetected); Coronavirus 229E PCR Not Detected (NotDetected); Coronavirus CoV-2 (COVID19)PCR Not Detected (NotDetected); Coronavirus HKU1 PCR Not Detected (NotDetected); Coronavirus NL63 PCR Not Detected (NotDetected); Coronavirus OC43PCR Not Detected (NotDetected); Human Metapneumovirus PCR Not Detected (NotDetected); Influenza A PCR Not Detected (NotDetected); Influenza B PCR Not Detected (NotDetected); Mycoplasma pneumoniae PCR Not Detected (NotDetected); Parainfluenza Virus 1 PCR Not Detected (NotDetected); Parainfluenza Virus 2 PCR Not Detected (NotDetected); Parainfluenza Virus 3 PCR Not Detected (NotDetected); Parainfluenza Virus 4 PCR Not Detected (NotDetected); Respiratory Syncytial VirusPCR Not Detected (NotDetected); Rhinovirus/Enterovirus PCR Not Detected (NotDetected)
--- NOTE | 2023-11-05 20:05 | Emergency Department Note ---
Impression & Plan Generalized weakness, Elevated troponin, Insomnia, Abnormal ECG ED Provider Note NAME: ANTON JAVED AGE: 78 SEX: Female INFORMANT: Patient and family ED PROVIDER(S): Pacheco Messina MD CHIEF COMPLAINT: Generalized weakness and insomnia PLAN: Disposition: Admitted Outpatient prescription management: none Referral: None MEDICAL DECISION MAKING: Patient presented because of generalized weakness and insomnia. Workup was initiated. Her CBC and chemistry panel showed a moderate anemia which was stable and an elevated creatinine which was stable as well. She does have an elevated cardiac troponin more than baseline. Her ECG did show some more pronounced lateral T wave inversions and a millimeter of ST elevation in lead III. This was new from prior but the patient does not have any chest pain. Record review indicated that she has had a chronic elevation of her troponin albeit less then tonight. Due to the insomnia and weakness she will need further management in the hospital. Patient and family are in agreement. CT imaging of the head was ordered as she was complaining of an intermittent headache which she does not have at this time. Patient is declining that as her curvature of her spine and bony prominences make it very difficult for her to lie flat. She does not want to go through with it. As she is just generally weak and has no headache at this time this was temporarily deferred. Consultation was made with the [facility] service. Case discussed and diagnostics were reviewed with Dr. mehta. Patient will be evaluated and admitted for further management. Care/management discussed with: ED case Level of care consideration(s): After review of the information above and other included data, I feel the patient requires escalation of care to admission Triage Nursing notes: reviewed and agree them. Vital Signs: reviewed and remarkable for hypertension Additional History obtained from: Family. They note that she is not doing well at home with increased weakness over the last several days. Chronic Medical/Social Conditions affecting care: CAD, lives alone Prior/ Outside/ External records reviewed: Patient was admitted and discharged on 10/23/2023 for SHEA and CHF per discharge summary. Patient was also noted to have recent non-STEMI Differential Diagnosis: Infection, dehydration, metabolic abnormality, hypo/hyperglycemia, electrolyte disturbance, anemia, hypoxia, cardiac sources, intracerebral event, toxicologic, neurologic, as well as other pathologies. Diagnostics, independently interpreted by me: ECG: Twelve-lead ECG reveals sinus rhythm PACs at 70 bpm. LVH QRS changes. Lateral T wave inversion noted. [address] elevation noted in V3 Cardiac Monitoring: Cardiac monitoring ordered by me: The patient was placed on continuous cardiac monitoring and observed. It revealed a sinus rhythm at 83 bpm Medical decision rules: none Imaging studies: Chest x-ray. Findings: A chest x-ray was performed and revealed no pneumothorax, effusion, infiltrate, pulmonary edema, free air under the diaphragm, or wide mediastinum. Impression: No acute disease. HPI: 78 year old Female arrives for evaluation of generalized weakness. Patient notes that she has not been sleeping at all for the last 5 days. She feels very fatigued. Family notes that she is having more difficulty getting around. Patient was recently admitted and discharged after having SHEA, hyponatremia and CHF. Patient also had a recent non-STEMI. She has decreased appetite and p.o. intake. Denies any close sick contacts. Patient has had an intermittent headache since being prescribed a sleeping pill a few days ago. She notes that sleeping pill did not help. Pt denies LOC, current headache, fevers, chills, diaphoresis, visual changes, neck pain, chest pain, breathing difficulties, nausea, vomiting, abdominal pain, new back pain, melena, hematochezia, urinary symptoms, numbness, lymphadenopathy, rash, or other complaints. PAST MEDICAL HISTORY: See Below, CHF, CAD, SHEA PAST SURGICAL HISTORY: See Below, SOCIAL HISTORY: See Below, lives alone HOME MEDICATIONS: See Below ALLERGIES: See Below VITALS: See Below PHYSICAL EXAMINATION: GENERAL: Awake, alert, well-appearing, in no distress HENT: Normocephalic, atraumatic. Oropharynx unremarkable. EYES: Normal conjunctiva. Sclera non-icteric. NECK: Inspection normal. Non-tender. Supple. No nuchal rigidity. FROM. No masses. RESPIRATORY: Clear to auscultation. No wheezes. No rales. Normal respiratory effort. CARDIAC: Normal rate. Normal rhythm. Systolic ejection murmur. No rubs. Extremities warm and well perfused. Pulses equal. No JVD. GI: Soft, non-distended. No tenderness to palpation. No rebound or guarding. No masses. MUSCULOSKELETAL: Atraumatic. Chest examination reveals no tenderness. The back is symmetrical on inspection without obvious abnormality. There is no CVA tenderness to palpation. No joint edema. LOWER EXTREMITIES: Calves are equal size bilaterally and non-tender. 1+ pedal edema. No discoloration. NEURO: Normal sensorium. No sensory or motor deficits noted. SKIN: No rash or jaundice noted. PROCEDURES: none CRITICAL CARE: none OBSERVATION NOTE: none Past Med/Surg History Medical History (Updated 11/05/23 @ 20:11 by Pacheco Messina MD) CKD (chronic kidney disease) stage 4, GFR 15-29 ml/min Chronic heart failure with preserved ejection fraction (HFpEF) Myalgia Generalized weakness Acute exacerbation of congestive heart failure COVID Hypertensive crisis Chronic sialoadenitis Poor historian Chronic back pain Osteoarthritis History of esophageal dilatation GERD (gastroesophageal reflux disease) Leaky heart valve per pt aorta--follows with Dr. Gonzáles Hypertension Hyperlipidemia Cardiac murmur Esophageal motility disorder "noted on barium swallow 10/2014" Chawla's esophagus Aortic stenosis "moderately severe by echo September 2013" Coronary artery disease LM PCI 07/27/2022 Surgical History History of colonoscopy History of umbilical hernia repair History of cardiac cath x3--last 12/2018 no stents History of hysterectomy History of lumpectomy cant remember which breast---benign fatty tissue History of bilateral tubal ligation History of carpal tunnel release of both wrists History of lumbar spinal fusion History of total left knee replacement (TKR) History of appendectomy History of cholecystectomy History of esophagogastroduodenoscopy (EGD) History of tooth extraction History of tonsillectomy History of sinus surgery Family History Other No family history of adverse response to anesthesia No family history of bleeding disorder Social History Smoking Status: Former smoker Tobacco Type: Cigarettes Smoking End Date: 40 years ago; Second Hand Exposure: No; Do You Dip or Chew Tobacco: No; Hx Alcohol Use: No Hx Substance Use: No Preferred Language: Occitan Communication Ability: Effective Primary Care Md Required: No Beliefs That Will Affect Care: [facility] Beliefs: Would like to see radiology specialist marital status: / Current Living Situation: Alone Current Living Situation Comment: From home. Sons help daily. Other Information That Helps Us Care for You: No Feels Safe at Home: Yes Safety Concerns: Feels Safe At This Time Assistive Devices: Cane, Glasses and Walker Allergies Allergies Allergy/AdvReac Type Severity Reaction Status Date / Time gabapentin AdvReac Intermediate cough Verified 11/05/23 19:27 oxycodone AdvReac Intermediate "makes me Verified 11/05/23 19:27 go crazy" ramipril AdvReac Intermediate cough Verified 11/05/23 19:27 Home Meds Home Medications Medication Instructions Recorded Confirmed aspirin 81 mg tablet,delayed 81 mg PO DAILY 10/19/23 11/05/23 release atorvastatin 20 mg tablet 20 mg PO DAILY 10/19/23 11/05/23 hydrocodone 10 mg-acetaminophen 1 tab PO BID PRN Severe Pain 10/19/23 11/05/23 325 mg tablet (Scale Score 7-10) omeprazole 20 mg capsule,delayed 20 mg PO DAILY 10/19/23 11/05/23 release acetaminophen 650 mg 650 mg PO Q8H PRN Pain 11/05/23 11/05/23 tablet,extended release amlodipine 10 mg tablet 10 mg PO QAM 11/05/23 11/05/23 ascorbic acid (vitamin C) 1,000 mg 500 mg PO Q OTHER DAY 11/05/23 11/05/23 tablet (Vitamin C) cholecalciferol (vitamin D3) 25 25 mcg PO DAILY 11/05/23 11/05/23 mcg (1,000 unit) capsule (Vitamin D3) cranberry concentrate-ascorbic 4 cap PO DAILY 11/05/23 11/05/23 acid 140 mg-100 mg capsule (Cranberry Plus Vitamin C) cyanocobalamin (vitamin B-12) 1,000 mcg PO Q OTHER DAY 11/05/23 11/05/23 1,000 mcg tablet (Vitamin B-12) docusate sodium 100 mg capsule 100 - 200 mg PO DAILY PRN 11/05/23 11/05/23 Constipation nitroglycerin 0.3 mg sublingual 0.3 mg sublingual DIRECTED PRN 11/05/23 11/05/23 tablet (Nitrostat) Chest Pain pediatric multivitamin 1 tab PO 2XWK 11/05/23 11/05/23 no.226-ferrous sulfate 18 mg chewable tablet (Flintstones with Extra Iron) polyethylene glycol 3350 17 17 g PO DAILY PRN Constipation 11/05/23 11/05/23 gram/dose oral powder (Miralax) pyridoxine (vitamin B6) 50 mg 50 mg PO DAILY 11/05/23 11/05/23 tablet (Vitamin B-6) ramelteon 8 mg tablet 8 mg PO HS 11/05/23 11/05/23 vitamin E 670 mg (1,000 unit) 670 mg PO DAILY 11/05/23 11/05/23 capsule Previous Rx's Medication Instructions Recorded diclofenac sodium 1 % topical gel 2 g EXT BID #50 grams 10/22/23 (Voltaren Arthritis Pain) hydralazine 50 mg tablet 50 mg PO QID #120 tabs 10/22/23 isosorbide dinitrate 20 mg tablet 20 mg PO BID@0700,1200 #60 tabs 10/22/23 torsemide 10 mg tablet 10 mg PO DAILY #1 tab 10/22/23 Results & Data (ED) Vital Signs Vital Signs - 24 hr 11/05/23 17:31 11/05/23 18:12 11/05/23 18:13 Temperature 37.4 C Temperature Source Temporal Artery Scan Pulse Rate 77 83 Pulse Rate [Right Finger] Pulse Rate from SpO2 Sensor 83 Pulse Rhythm Pulse Rhythm [Right Finger] Pulse Strength [Right Finger] Respiratory Rate 16 13 Respiratory Effort / Characteristics Respiratory Depth Respiratory Pattern Blood Pressure 163/67 H 178/55 H Blood Pressure [Left Arm] Blood Pressure Mean 99 119 Blood Pressure Mean [Left Arm] Blood Pressure Position [Left Arm] Pulse Oximetry 97 95 Oxygen Delivery Method Room Air Sepsis Recent Fever Within 48 Hours No Sepsis New/Unexplained Change in Mental Status No Sepsis Action Taken by Nursing No Action Required 11/05/23 18:13 11/05/23 18:17 11/05/23 18:17 Temperature 36.9 C Temperature Source Oral Pulse Rate 82 Pulse Rate [Right Finger] 83 Pulse Rate from SpO2 Sensor 84 Pulse Rhythm Pulse Rhythm [Right Finger] Regular Pulse Strength [Right Finger] Normal Respiratory Rate 10 L 20 Respiratory Effort / Characteristics Non-Labored Spontaneous Respiratory Depth Normal Respiratory Pattern Regular Blood Pressure Blood Pressure [Left Arm] 178/55 H Blood Pressure Mean Blood Pressure Mean [Left Arm] 96 Blood Pressure Position [Left Arm] Semi-fowlers Pulse Oximetry 95 98 98 Oxygen Delivery Method Room Air Room Air Sepsis Recent Fever Within 48 Hours Sepsis New/Unexplained Change in Mental Status Sepsis Action Taken by Nursing 11/05/23 18:17 11/05/23 18:17 11/05/23 18:20 Temperature Temperature Source Pulse Rate 80 80 102 H Pulse Rate [Right Finger] Pulse Rate from SpO2 Sensor 81 Pulse Rhythm Regular Pulse Rhythm [Right Finger] Pulse Strength [Right Finger] Respiratory Rate 20 13 Respiratory Effort / Characteristics Respiratory Depth Respiratory Pattern Blood Pressure Blood Pressure [Left Arm] Blood Pressure Mean Blood Pressure Mean [Left Arm] Blood Pressure Position [Left Arm] Pulse Oximetry 98 96 Oxygen Delivery Method Room Air Sepsis Recent Fever Within 48 Hours Sepsis New/Unexplained Change in Mental Status Sepsis Action Taken by Nursing 11/05/23 18:30 11/05/23 18:30 11/05/23 18:40 Temperature Temperature Source Pulse Rate 83 81 Pulse Rate [Right Finger] Pulse Rate from SpO2 Sensor 82 81 Pulse Rhythm Pulse Rhythm [Right Finger] Pulse Strength [Right Finger] Respiratory Rate 28 H 25 H Respiratory Effort / Characteristics Respiratory Depth Respiratory Pattern Blood Pressure 173/62 H Blood Pressure [Left Arm] Blood Pressure Mean 100 Blood Pressure Mean [Left Arm] Blood Pressure Position [Left Arm] Pulse Oximetry 94 94 Oxygen Delivery Method Sepsis Recent Fever Within 48 Hours Sepsis New/Unexplained Change in Mental Status Sepsis Action Taken by Nursing 11/05/23 18:50 11/05/23 19:00 11/05/23 19:00 Temperature Temperature Source Pulse Rate 83 83 83 Pulse Rate [Right Finger] Pulse Rate from SpO2 Sensor 82 84 Pulse Rhythm Pulse Rhythm [Right Finger] Pulse Strength [Right Finger] Respiratory Rate 27 H 21 21 Respiratory Effort / Characteristics Respiratory Depth Respiratory Pattern Blood Pressure 161/60 H Blood Pressure [Left Arm] Blood Pressure Mean 125 Blood Pressure Mean [Left Arm] Blood Pressure Position [Left Arm] Pulse Oximetry 95 93 93 Oxygen Delivery Method Room Air Sepsis Recent Fever Within 48 Hours Sepsis New/Unexplained Change in Mental Status Sepsis Action Taken by Nursing 11/05/23 19:30 11/05/23 19:30 11/05/23 19:40 Temperature Temperature Source Pulse Rate 85 85 88 Pulse Rate [Right Finger] Pulse Rate from SpO2 Sensor 85 87 Pulse Rhythm Pulse Rhythm [Right Finger] Pulse Strength [Right Finger] Respiratory Rate 23 23 20 Respiratory Effort / Characteristics Respiratory Depth Respiratory Pattern Blood Pressure 162/62 H Blood Pressure [Left Arm] Blood Pressure Mean 120 Blood Pressure Mean [Left Arm] Blood Pressure Position [Left Arm] Pulse Oximetry 94 91 Oxygen Delivery Method Room Air Sepsis Recent Fever Within 48 Hours Sepsis New/Unexplained Change in Mental Status Sepsis Action Taken by Nursing 11/05/23 19:50 11/05/23 20:00 11/05/23 20:00 Temperature Temperature Source Pulse Rate 86 89 89 Pulse Rate [Right Finger] Pulse Rate from SpO2 Sensor 87 87 Pulse Rhythm Pulse Rhythm [Right Finger] Pulse Strength [Right Finger] Respiratory Rate 19 21 21 Respiratory Effort / Characteristics Respiratory Depth Respiratory Pattern Blood Pressure 163/64 H Blood Pressure [Left Arm] Blood Pressure Mean 127 Blood Pressure Mean [Left Arm] Blood Pressure Position [Left Arm] Pulse Oximetry 93 92 92 Oxygen Delivery Method Room Air Sepsis Recent Fever Within 48 Hours Sepsis New/Unexplained Change in Mental Status Sepsis Action Taken by Nursing 11/05/23 20:10 11/05/23 20:20 11/05/23 20:30 Temperature Temperature Source Pulse Rate 87 84 86 Pulse Rate [Right Finger] Pulse Rate from SpO2 Sensor 83 85 Pulse Rhythm Pulse Rhythm [Right Finger] Pulse Strength [Right Finger] Respiratory Rate 14 20 15 Respiratory Effort / Characteristics Respiratory Depth Respiratory Pattern Blood Pressure 171/62 H Blood Pressure [Left Arm] Blood Pressure Mean 128 Blood Pressure Mean [Left Arm] Blood Pressure Position [Left Arm] Pulse Oximetry 95 93 91 Oxygen Delivery Method Room Air Sepsis Recent Fever Within 48 Hours Sepsis New/Unexplained Change in Mental Status Sepsis Action Taken by Nursing 11/05/23 20:30 11/05/23 21:00 11/05/23 21:00 Temperature Temperature Source Pulse Rate 86 79 79 Pulse Rate [Right Finger] Pulse Rate from SpO2 Sensor 73 80 Pulse Rhythm Pulse Rhythm [Right Finger] Pulse Strength [Right Finger] Respiratory Rate 15 20 20 Respiratory Effort / Characteristics Respiratory Depth Respiratory Pattern Blood Pressure 167/62 H Blood Pressure [Left Arm] Blood Pressure Mean 140 Blood Pressure Mean [Left Arm] Blood Pressure Position [Left Arm] Pulse Oximetry 91 90 90 Oxygen Delivery Method Sepsis Recent Fever Within 48 Hours Sepsis New/Unexplained Change in Mental Status Sepsis Action Taken by Nursing 11/05/23 21:30 11/05/23 21:30 Temperature Temperature Source Pulse Rate 86 Pulse Rate [Right Finger] Pulse Rate from SpO2 Sensor 85 85 Pulse Rhythm Pulse Rhythm [Right Finger] Pulse Strength [Right Finger] Respiratory Rate 23 23 Respiratory Effort / Characteristics Respiratory Depth Respiratory Pattern Blood Pressure 166/68 H Blood Pressure [Left Arm] Blood Pressure Mean 115 Blood Pressure Mean [Left Arm] Blood Pressure Position [Left Arm] Pulse Oximetry 91 91 Oxygen Delivery Method Room Air Sepsis Recent Fever Within 48 Hours Sepsis New/Unexplained Change in Mental Status Sepsis Action Taken by Nursing Laboratory Data 11/05/23 18:00 11/05/23 18:00 Lab Results 11/05/23 11/05/23 11/05/23 Range/Units 17:58 18:00 19:31 WBC 6.57 (4.8-10.8) K/ul RBC 3.24 L (4.20-5.40) M/uL Hgb 9.5 L (12.0-16.0) g/dl Hct 28.4 L (37.0-47.0) % MCV 87.7 (80.0-100.0) fL MCH 29.3 (25.0-34.0) pg MCHC 33.5 (32.0-36.0) g/dL RDW Std Deviation 44.3 (36.4-46.3) fL RDW Coeff of Breanne 13.8 (11.5-14.5) % Plt Count 305 (130-400) K/uL MPV 9.6 (9.4-12.4) fL Immature Gran % (Auto) 0.2 % Neut % (Auto) 74.9 % Lymph % (Auto) 9.0 % [place] % (Auto) 9.3 % Eos % (Auto) 5.5 % Baso % (Auto) 1.1 % Neut # (Auto) 4.93 (1.40-6.50) K/uL Lymph # (Auto) 0.59 L (1.20-3.40) K/uL [place] # (Auto) 0.61 H (0.11-0.59) K/uL Eos # (Auto) 0.36 (0.00-0.50) K/uL Baso # (Auto) 0.07 (0.00-0.20) K/uL Immature Gran # (Auto) 0.01 (0.01-0.20) K/uL Sodium 135 L (136-145) mmol/L Potassium 4.1 (3.5-5.1) mmol/L Chloride 102 (98-107) mmol/L Carbon Dioxide 21 (21-32) mmol/L Anion Gap 12 H (3-11) BUN 47 H (6-23) mg/dl Creatinine 1.71 H (0.6-1.2) mg/dl Est Cr Clr Drug Dosing 21.7 ml/min Est GFR ( Amer) 32.2 ml/min Est GFR (Non-Af Amer) 27.8 ml/min BUN/Creatinine Ratio 27.5 H (10-20) Glucose 121 H (70-99(Fasting)) mg/dl Calcium 9.8 (8.6-10.3) mg/dl Magnesium 1.7 (1.7-2.4) mg/dl Total Bilirubin 0.6 (0.2-1.0) mg/dl AST 29 (13-39) U/L ALT 12 (7-52) U/L Alkaline Phosphatase 74 (34-104) U/L Troponin I High Sens 176.8 H* (0-14) pg/ml Total Protein 7.7 (6.0-8.3) gm/dl Albumin 4.0 (3.4-5.0) gm/dl Globulin 3.7 (2.5-4.0) gm/dl Albumin/Globulin Ratio 1.1 (0.9-2) TSH 2.508 (0.300-4.500) uIu/ml Urine Color Yellow Urine Appearance Clear (Clear) Urine pH 5.0 (4.5-7.5) Ur Specific [place] 1.015 (1.000-1.030) Urine Protein 3+ H (Negative) Urine Glucose (UA) Negative (Negative) Urine Ketones Negative (Negative) Urine Blood Negative (Negative) Urine Nitrite Negative (Negative) Urine Bilirubin Negative (Negative) Urine Urobilinogen Negative (Negative) Ur Leukocyte Esterase Negative (Negative) Urine WBC (Auto) 0-5 (0-5) /hpf Urine RBC (Auto) 0-2 (0-2) /hpf U Hyaline Cast (Auto) 3-5 H (0-2) /lpf U Epithel Cells (Auto) 6-10 H (0-2) /hpf Urine Bacteria (Auto) None Seen (None Seen) Adenovirus (PCR) Not Detected (NotDetected) B. pertussis DNA (PCR) Not Detected (NotDetected) B.parapertussis DNA PCR Not Detected (NotDetected) C. pneumoniae DNA (PCR) Not Detected (NotDetected) Coronavirus OC43 (PCR) Not Detected (NotDetected) Coronavirus HKU1 (PCR) Not Detected (NotDetected) Coronavirus 229E (PCR) Not Detected (NotDetected) SARS-CoV-2 (PCR) Not Detected (NotDetected) Coronavirus NL63 (PCR) Not Detected (NotDetected) Human Metapneumovir PCR Not Detected (NotDetected) Influenza Type A (PCR) Not Detected (NotDetected) Influenza Type B (PCR) Not Detected (NotDetected) M. pneumoniae (PCR) Not Detected (NotDetected) Parainfluenza 1 (PCR) Not Detected (NotDetected) Parainfluenza 2 (PCR) Not Detected (NotDetected) Parainfluenza 3 (PCR) Not Detected (NotDetected) Parainfluenza 4 (PCR) Not Detected (NotDetected) RSV (PCR) Not Detected (NotDetected) Entero/Rhino (PCR) Not Detected (NotDetected) 11/05/23 Range/Units 21:22 WBC (4.8-10.8) K/ul RBC (4.20-5.40) M/uL Hgb (12.0-16.0) g/dl Hct (37.0-47.0) % MCV (80.0-100.0) fL MCH (25.0-34.0) pg MCHC (32.0-36.0) g/dL RDW Std Deviation (36.4-46.3) fL RDW Coeff of Breanne (11.5-14.5) % Plt Count (130-400) K/uL MPV (9.4-12.4) fL Immature Gran % (Auto) % Neut % (Auto) % Lymph % (Auto) % [place] % (Auto) % Eos % (Auto) % Baso % (Auto) % Neut # (Auto) (1.40-6.50) K/uL Lymph # (Auto) (1.20-3.40) K/uL [place] # (Auto) (0.11-0.59) K/uL Eos # (Auto) (0.00-0.50) K/uL Baso # (Auto) (0.00-0.20) K/uL Immature Gran # (Auto) (0.01-0.20) K/uL Sodium (136-145) mmol/L Potassium (3.5-5.1) mmol/L Chloride (98-107) mmol/L Carbon Dioxide (21-32) mmol/L Anion Gap (3-11) BUN (6-23) mg/dl Creatinine (0.6-1.2) mg/dl Est Cr Clr Drug Dosing ml/min Est GFR ( Amer) ml/min Est GFR (Non-Af Amer) ml/min BUN/Creatinine Ratio (10-20) Glucose (70-99(Fasting)) mg/dl Calcium (8.6-10.3) mg/dl Magnesium (1.7-2.4) mg/dl Total Bilirubin (0.2-1.0) mg/dl AST (13-39) U/L ALT (7-52) U/L Alkaline Phosphatase (34-104) U/L Troponin I High Sens 163.5 H* (0-14) pg/ml Total Protein (6.0-8.3) gm/dl Albumin (3.4-5.0) gm/dl Globulin (2.5-4.0) gm/dl Albumin/Globulin Ratio (0.9-2) TSH (0.300-4.500) uIu/ml Urine Color Urine Appearance (Clear) Urine pH (4.5-7.5) Ur Specific [place] (1.000-1.030) Urine Protein (Negative) Urine Glucose (UA) (Negative) Urine Ketones (Negative) Urine Blood (Negative) Urine Nitrite (Negative) Urine Bilirubin (Negative) Urine Urobilinogen (Negative) Ur Leukocyte Esterase (Negative) Urine WBC (Auto) (0-5) /hpf Urine RBC (Auto) (0-2) /hpf U Hyaline Cast (Auto) (0-2) /lpf U Epithel Cells (Auto) (0-2) /hpf Urine Bacteria (Auto) (None Seen) Adenovirus (PCR) (NotDetected) B. pertussis DNA (PCR) (NotDetected) B.parapertussis DNA PCR (NotDetected) C. pneumoniae DNA (PCR) (NotDetected) Coronavirus OC43 (PCR) (NotDetected) Coronavirus HKU1 (PCR) (NotDetected) Coronavirus 229E (PCR) (NotDetected) SARS-CoV-2 (PCR) (NotDetected) Coronavirus NL63 (PCR) (NotDetected) Human Metapneumovir PCR (NotDetected) Influenza Type A (PCR) (NotDetected) Influenza Type B (PCR) (NotDetected) M. pneumoniae (PCR) (NotDetected) Parainfluenza 1 (PCR) (NotDetected) Parainfluenza 2 (PCR) (NotDetected) Parainfluenza 3 (PCR) (NotDetected) Parainfluenza 4 (PCR) (NotDetected) RSV (PCR) (NotDetected) Entero/Rhino (PCR) (NotDetected) Administered Medications Miscellaneous (Order Awaiting Action: Ramelteon 8 Mg Tablet) 1 each N/A QS MELLISA Stop: 12/06/23 00:00 Last Admin: 11/06/23 00:16 Dose: Not Given Documented By: SASKIA Discontinued Medications Hydralazine HCl (Hydralazine Tab 50 Mg Tab) 50 mg PO NOW STA Stop: 11/05/23 23:17 Last Admin: 11/05/23 23:59 Dose: 50 mg Documented By: SASKIA Hydromorphone HCl (Hydromorphone Inj 0.5 Mg/0.5 Ml Syr) 0.25 mg IV NOW STA Stop: 11/05/23 23:06 Last Admin: 11/05/23 23:36 Dose: 0.25 mg Documented By: SASKIA Lorazepam 0.25 mg/ Syringe 0.25 mls @ 2 mls/min IV NOW STA Stop: 11/05/23 23:19 Last Admin: 11/05/23 23:37 Dose: 2 mls/min Documented By: SASKIA Lorazepam (Lorazepam 0.5 Mg Tab) 0.5 mg PO NOW STA Stop: 11/05/23 21:38 Last Admin: 11/05/23 22:00 Dose: 0.5 mg Documented By: CLINT Imaging Data Radiologist's Impression: Chest X-Ray 11/05/23 17:33 SINGLE VIEW CHEST CLINICAL HISTORY: Generalized weakness. FINDINGS: An AP, portable, upright chest radiograph is compared to study dated 10/18/2023 and correlated with chest CT dated 06/16/2022. A hiatal hernia is noted. The heart Is enlarged noting atherosclerotic calcification of the thoracic aorta. Mitral annulus is densely calcified. The pulmonary vasculature is noncongested. Chronic interstitial thickening is similar to previous. There is mild bibasilar scarring/atelectasis. Small pleural effusions are suspected. There is no airspace consolidation typical for pneumonia. No pneumothorax is seen. The skeletal structures are osteopenic. The bony thorax is grossly intact. Degenerative change is noted in the shoulders and spine. IMPRESSION: 1. Cardiomegaly without radiographic evidence of congestive failure. 2. Suspect small pleural effusions. ACT 112: Negative or not required by law. Electronically signed by: Bernabe Pressley M.D. 11/05/2023 7:18 PM Discharge Plan Visit Data Chief Complaint: Weakness Stated Complaint: WEAK,LACK OF SLEEP ED Provider: Pacheco Messina Discharge Problem: Generalized weakness, Elevated troponin, Insomnia, Abnormal ECG Patient Disposition: Admitted As Inpatient Discharge Instructions Interventions: ED Discharge Assessment Last Done: 11/05/23 22:26
[2023-11-05 20:44] LABS: Appearance Urine Clear (Clear); Bacteria Urine Automated None Seen (None Seen); Bilirubin Urine Negative (Negative); Blood Urine Negative (Negative); Color Urine Yellow; Glucose Urine UA Negative (Negative); Ketones Urine Negative (Negative); Leukocyte Esterase Urine Negative (Negative); Nitrite Urine Negative (Negative); Protein Urine 3+ (Negative); RBC Urine Automated 0-2 /hpf (0-2); Specific Gravity Urine 1.015 (1.000-1.030); Urobilinogen Urine Negative (Negative); WBC Urine Automated 0-5 /hpf (0-5)
[2023-11-05] MEDS: LORazepam 0.5 MG TAB PO STA (22:00)
[2023-11-05 22:26] LABS: Troponin I High Sensitivity 176.8 pg/ml (0-14)
[2023-11-05] MEDS ORDERED: HYDROcodone/ACETAMINOPHEN 10/325 TAB PO PRN (22:57)
[2023-11-05] MEDS ORDERED: DOCUSATE SODIUM 100 MG CAP PO PRN (22:57)
[2023-11-05] MEDS ORDERED: POLYETHYLENE (MIRALAX) 17 GM PACK PO PRN ×2 (22:57)
[2023-11-05] MEDS ORDERED: NITROGLYCERIN 0.3 MG/1 TAB 100 TAB BTL SL PRN (22:57)
[2023-11-05] MEDS: HYDROmorphone INJ 0.5 MG/0.5 ML SYR IV STA (23:36)
[2023-11-05] MEDS: LORazepam 0.25 MG in SYRINGE 0.125 ML IV STA (23:37)
[2023-11-05] MEDS: hydrALAZINE TAB 50 MG TAB PO STA (23:59)
--- NOTE | 2023-11-06 02:12 | History & Physical Report ---
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 Because of weakness she is not able to ambulate much. Appetite is down. Having some headaches when she is lying down. Have some sore throat. Denies any fevers. No cough. No chest pain. Has some shortness of breath on exertion. No nausea. No abdominal pain. Normal bowel and bladder movements. Patient recently had right and left heart catheterization at [place] which showed mild coronary disease , moderate aortic stenosis and severely elevated right heart pressures , left main coronary stent was patent. Mild to moderate diffuse RCA disease noted and mild LAD disease and mild proximal left circumflex disease. Patient was again recently admitted to [facility] on 10/18/23 because of SHEA and hyponatremia and placed on fluid restriction 1.5 L a day and also her blood pressure medications were adjusted per cardiology and discharged on first 2023. Patient states since last for 4/5 days she is not able to sleep at all. Asking to help her sleep. Feeling tired because of that. Hemodynamics are okay. Insomnia [facility] Elevated troponin abnormal ekg denies chest pain recently had cardiac cath as mentioned in h and p. Initial troponin 176 and repeat troponin 163 will follow serial ce and echo telemetry consult cardio in am for further recommendations and medical optimization Hx of CAD s/p stents On aspirin, statin ,nitrates HTN last admit coreq was stopped because of bradycardia isosorbide dinitrate was added, hydralazine and amlodipine dose increased losartan was stopped will monitor Hyponatremia sodium 135 Was discharged on fluid restriction 1500ml/day and torsemide 10mg daily will monitor CKD 3-4 cr 1.7 seems around baseline will monitor Chronic anemia Presented presented with hemoglobin 9.5 around baseline Will follow Chronic heart failure with preserved EF Moderate Pul.HTN on torsemide monitor for volume overload. Chronic back pain headache home meds patient declined ct head for difficulty lying flat because of curvature of her spine. 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 Because of weakness she is not able to ambulate much. Appetite is down. Having some headaches when she is lying down. Have some sore throat. Denies any fevers. No cough. No chest pain. Has some shortness of breath on exertion. No nausea. No abdominal pain. Normal bowel and bladder movements. Patient recently had right and left heart catheterization at [place] which showed mild coronary disease , moderate aortic stenosis and severely elevated right heart pressures , left main coronary stent was patent. Mild to moderate diffuse RCA disease noted and mild LAD disease and mild proximal left circumflex disease. Patient was again recently admitted to [facility] on 10/18/23 because of SHEA and hyponatremia and placed on fluid restriction 1.5 L a day and also her blood pressure medications were adjusted p er cardiology and discharged on first 2023. Patient states since last fo 4/5 days she is not able to sleep at all. Asking to help her sleep. Feeling tired because of that. Hemodynamics are okay. Past medical history. As mentioned above Past surgical history. Left knee arthroplasty. Left and right heart catheterization. Cardiac stent. EGD. EGD with biopsy. EGD with endoscopic ultrasound. Laparoscopic cholecystectomy with cholangiography. Right carpal tunnel surgery. Colonoscopy with biopsy. Appendectomy. Oophorectomy. Repair of umbilical hernia. Sacroiliac joint injection. Diagnostic sigmoidoscopy. Vaginal hysterectomy. Social history. Lives alone. Son lives close by. Quit smoking in 1976. Smoked 3 packs a day for 30 years. Alcohol rarely. No drug use. Family history. Father had arthritis. Cancer. Diabetes. Hypertension. Mother had CABG. Alzheimer's. Sister has hypertension. Arthritis. Allergies Allergy/AdvReac Type Severity Reaction Status Date / Time gabapentin AdvReac Intermediate cough Verified 11/05/23 19:27 oxycodone AdvReac Intermediate "makes me Verified 11/05/23 19:27 go crazy" ramipril AdvReac Intermediate cough Verified 11/05/23 19:27 Home Medications Medication Instructions Recorded Confirmed Type aspirin 81 mg tablet,delayed 81 mg PO DAILY 10/19/23 11/05/23 History release atorvastatin 20 mg tablet 20 mg PO DAILY 10/19/23 11/05/23 History hydrocodone 10 mg-acetaminophen 1 tab PO BID PRN Severe Pain 10/19/23 11/05/23 History 325 mg tablet (Scale Score 7-10) omeprazole 20 mg capsule,delayed 20 mg PO DAILY 10/19/23 11/05/23 History release diclofenac sodium 1 % topical gel 2 g EXT BID #50 grams 10/22/23 11/05/23 Rx (Voltaren Arthritis Pain) hydralazine 50 mg tablet 50 mg PO QID #120 tabs 10/22/23 11/05/23 Rx isosorbide dinitrate 20 mg tablet 20 mg PO BID@0700,1200 #60 tabs 10/22/23 11/05/23 Rx torsemide 10 mg tablet 10 mg PO DAILY #1 tab 10/22/23 11/05/23 Rx acetaminophen 650 mg 650 mg PO Q8H PRN Pain 11/05/23 11/05/23 History tablet,extended release amlodipine 10 mg tablet 10 mg PO QAM 11/05/23 11/05/23 History ascorbic acid (vitamin C) 1,000 mg 500 mg PO Q OTHER DAY 11/05/23 11/05/23 History tablet (Vitamin C) cholecalciferol (vitamin D3) 25 25 mcg PO DAILY 11/05/23 11/05/23 History mcg (1,000 unit) capsule (Vitamin D3) cranberry concentrate-ascorbic 4 cap PO DAILY 11/05/23 11/05/23 History acid 140 mg-100 mg capsule (Cranberry Plus Vitamin C) cyanocobalamin (vitamin B-12) 1,000 mcg PO Q OTHER DAY 11/05/23 11/05/23 History 1,000 mcg tablet (Vitamin B-12) docusate sodium 100 mg capsule 100 - 200 mg PO DAILY PRN 11/05/23 11/05/23 History Constipation nitroglycerin 0.3 mg sublingual 0.3 mg sublingual DIRECTED PRN 11/05/23 11/05/23 History tablet (Nitrostat) Chest Pain pediatric multivitamin 1 tab PO 2XWK 11/05/23 11/05/23 History no.226-ferrous sulfate 18 mg chewable tablet (Flintstones with Extra Iron) polyethylene glycol 3350 17 17 g PO DAILY PRN Constipation 11/05/23 11/05/23 History gram/dose oral powder (Miralax) pyridoxine (vitamin B6) 50 mg 50 mg PO DAILY 11/05/23 11/05/23 History tablet (Vitamin B-6) ramelteon 8 mg tablet 8 mg PO HS 11/05/23 11/05/23 History vitamin E 670 mg (1,000 unit) 670 mg PO DAILY 11/05/23 11/05/23 History capsule Past Med/Surg History Medical History (Updated 11/05/23 @ 20:11 by Pacheco Messina MD) CKD (chronic kidney disease) stage 4, GFR 15-29 ml/min Chronic heart failure with preserved ejection fraction (HFpEF) Myalgia Generalized weakness Acute exacerbation of congestive heart failure COVID Hypertensive crisis Chronic sialoadenitis Poor historian Chronic back pain Osteoarthritis History of esophageal dilatation GERD (gastroesophageal reflux disease) Leaky heart valve per pt aorta--follows with Dr. Gonzáles Hypertension Hyperlipidemia Cardiac murmur Esophageal motility disorder "noted on barium swallow 10/2014" Chawla's esophagus Aortic stenosis "moderately severe by echo September 2013" Coronary artery disease LM PCI 07/27/2022 Surgical History History of colonoscopy History of umbilical hernia repair History of cardiac cath x3--last 12/2018 no stents History of hysterectomy History of lumpectomy cant remember which breast---benign fatty tissue History of bilateral tubal ligation History of carpal tunnel release of both wrists History of lumbar spinal fusion History of total left knee replacement (TKR) History of appendectomy History of cholecystectomy History of esophagogastroduodenoscopy (EGD) History of tooth extraction History of tonsillectomy History of sinus surgery Family History Other No family history of adverse response to anesthesia No family history of bleeding disorder Social History Smoking Status: Former smoker Tobacco Type: Cigarettes Smoking End Date: 40 years ago; Second Hand Exposure: No; Do You Dip or Chew Tobacco: No; Hx Alcohol Use: No Hx Substance Use: No Preferred Language: Spanish Communication Ability: Effective Labor Economics 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 Sons help daily. Other Information That Helps Us Care for You: No Feels Safe at Home: Yes Safety Concerns: Feels Safe At This Time Assistive Devices: Cane, Glasses and Walker Review of Systems Review of Systems: All systems reviewed & are unremarkable except as noted in HPI & below Physical Exam Physical Exam: General- Not in acute distress Head- atraumatic Eyes- PERRL. ENT- oropharynx clear Neck- supple, no JVD. Lungs- clear to auscultation no wheezing or crackles Heart- regular rhythm; no murmur, no gallop. Abdomen- normal bowel sounds, soft, nontender, no distension. Extremities- no pretibial edema, no erythema seen. Neuro- alert, oriented. PERRL, no facial palsy; no dysarthria; moves extremities. Results & Data Results & Data Vital Signs (Past 12 Hours) Vital Signs Temp Pulse Pulse Resp BP BP Pulse Ox 11/05/23 22:13 90 11/05/23 22:00 85 24 89 L 11/05/23 22:00 85 24 171/77 H 89 L 11/05/23 21:30 23 166/68 H 91 11/05/23 21:30 86 23 91 11/05/23 21:00 79 20 167/62 H 90 11/05/23 21:00 79 20 90 11/05/23 20:30 86 15 91 11/05/23 20:30 86 15 171/62 H 91 11/05/23 20:20 84 20 93 11/05/23 20:10 87 14 95 11/05/23 20:00 89 21 163/64 H 92 11/05/23 20:00 89 21 92 11/05/23 19:50 86 19 93 11/05/23 19:40 88 20 91 11/05/23 19:30 85 23 162/62 H 11/05/23 19:30 85 23 94 11/05/23 19:00 83 21 161/60 H 93 11/05/23 19:00 83 21 93 11/05/23 18:50 83 27 H 95 11/05/23 18:40 81 25 H 94 11/05/23 18:30 83 28 H 94 11/05/23 18:30 173/62 H 11/05/23 18:20 102 H 13 96 11/05/23 18:17 80 11/05/23 18:17 80 20 98 11/05/23 18:17 36.9 C 83 20 178/55 H 98 11/05/23 18:17 98 11/05/23 18:13 82 10 L 95 11/05/23 18:13 178/55 H 11/05/23 18:12 83 13 95 11/05/23 17:31 37.4 C 77 16 163/67 H 97 O2 Del Method 11/05/23 22:13 11/05/23 22:00 11/05/23 22:00 Room Air 11/05/23 21:30 Room Air 11/05/23 21:30 11/05/23 21:00 11/05/23 21:00 11/05/23 20:30 11/05/23 20:30 Room Air 11/05/23 20:20 11/05/23 20:10 11/05/23 20:00 Room Air 11/05/23 20:00 11/05/23 19:50 11/05/23 19:40 11/05/23 19:30 Room Air 11/05/23 19:30 11/05/23 19:00 Room Air 11/05/23 19:00 11/05/23 18:50 11/05/23 18:40 04/15/24 18:30 11/05/23 18:30 11/05/23 18:20 11/05/23 18:17 11/05/23 18:17 Room Air 11/05/23 18:17 Room Air 11/05/23 18:17 Room Air 11/05/23 18:13 11/05/23 18:13 11/05/23 18:12 11/05/23 17:31 Room Air Diagnostic Findings Laboratory Results WBC 6.57 K/ul (4.8-10.8) 11/05/23 18:00 RBC 3.24 M/uL (4.20-5.40) L 11/05/23 18:00 Hgb 9.5 g/dl (12.0-16.0) L 11/05/23 18:00 Hct 28.4 % (37.0-47.0) L 11/05/23 18:00 MCV 87.7 fL (80.0-100.0) 11/05/23 18:00 MCH 29.3 pg (25.0-34.0) 11/05/23 18:00 MCHC 33.5 g/dL (32.0-36.0) 11/05/23 18:00 RDW Std Deviation 44.3 fL (36.4-46.3) 11/05/23 18:00 RDW Coeff of Breanne 13.8 % (11.5-14.5) 11/05/23 18:00 Plt Count 305 K/uL (130-400) 11/05/23 18:00 MPV 9.6 fL (9.4-12.4) 11/05/23 18:00 Immature Gran % (Auto) 0.2 % 11/05/23 18:00 Neut % (Auto) 74.9 % 11/05/23 18:00 Lymph % (Auto) 9.0 % 11/05/23 18:00 Woodruff % (Auto) 9.3 % 11/05/23 18:00 Eos % (Auto) 5.5 % 11/05/23 18:00 Baso % (Auto) 1.1 % 11/05/23 18:00 Neut # (Auto) 4.93 K/uL (1.40-6.50) 11/05/23 18:00 Lymph # (Auto) 0.59 K/uL (1.20-3.40) L 11/05/23 18:00 [place]ruff # (Auto) 0.61 K/uL (0.11-0.59) H 11/05/23 18:00 Eos # (Auto) 0.36 K/uL (0.00-0.50) 11/05/23 18:00 Baso # (Auto) 0.07 K/uL (0.00-0.20) 11/05/23 18:00 Immature Gran # (Auto) 0.01 K/uL (0.01-0.20) 11/05/23 18:00 Sodium 135 mmol/L (136-145) L 11/05/23 18:00 Potassium 4.1 mmol/L (3.5-5.1) 11/05/23 18:00 Chloride 102 mmol/L (98-107) 11/05/23 18:00 Carbon Dioxide 21 mmol/L (21-32) 11/05/23 18:00 Anion Gap 12 (3-11) H 11/05/23 18:00 BUN 47 mg/dl (6-23) H 11/05/23 18:00 Creatinine 1.71 mg/dl (0.6-1.2) H 11/05/23 18:00 Est Cr Clr Drug Dosing 21.7 ml/min 11/05/23 18:00 Est GFR ( Amer) 32.2 ml/min 11/05/23 18:00 Est GFR (Non-Af Amer) 27.8 ml/min 11/05/23 18:00 BUN/Creatinine Ratio 27.5 (10-20) H 11/05/23 18:00 Glucose 121 mg/dl (70-99(Fasting)) H 11/05/23 18:00 Calcium 9.8 mg/dl (8.6-10.3) 11/05/23 18:00 Magnesium 1.7 mg/dl (1.7-2.4) 11/05/23 18:00 Total Bilirubin 0.6 mg/dl (0.2-1.0) 11/05/23 18:00 AST 29 U/L (13-39) 11/05/23 18:00 ALT 12 U/L (7-52) 11/05/23 18:00 Alkaline Phosphatase 74 U/L (34-104) 11/05/23 18:00 Troponin I High Sens 163.5 pg/ml (0-14) H* 11/05/23 21:22 Total Protein 7.7 gm/dl (6.0-8.3) 11/05/23 18:00 Albumin 4.0 gm/dl (3.4-5.0) 11/05/23 18:00 Globulin 3.7 gm/dl (2.5-4.0) 11/05/23 18:00 Albumin/Globulin Ratio 1.1 (0.9-2) 11/05/23 18:00 TSH 2.508 uIu/ml (0.300-4.500) 11/05/23 18:00 Urine Color Yellow 11/05/23 19: Urine Appearance Clear (Clear) 11/05/23 19: Urine pH 5.0 (4.5-7.5) 11/05/23 19: Ur Specific [place] 1.015 (1.000-1.030) 11/05/23 19:31 Urine Protein 3+ (Negative) H 11/05/23 19:31 Urine Glucose (UA) Negative (Negative) 11/05/23 19: Urine Ketones Negative (Negative) 11/05/23 19: Urine Blood Negative (Negative) 11/05/23: Urine Nitrite Negative (Negative) 11/05/23 19: Urine Bilirubin Negative (Negative) 11/05/23 19:31 Urine Urobilinogen Negative (Negative) 11/05/23 19: Ur Leukocyte Esterase Negative (Negative) 11/05/23 19: Urine WBC (Auto) 0-5 /hpf (0-5) 11/05/23 19: Urine RBC (Auto) 0-2 /hpf (0-2) 11/05/23 19: U Hyaline Cast (Auto) 3-5 /lpf (0-2) H 11/05/23 19: U Epithel Cells (Auto) 6-10 /hpf (0-2) H 11/05/23 19:31 Urine Bacteria (Auto) None Seen (None Seen) 11/05/23 19:31 Adenovirus (PCR) Not Detected (NotDetected) 11/05/23 17:58 B. pertussis DNA (PCR) Not Detected (NotDetected) 11/05/23 17:58 B.parapertussis DNA PCR Not Detected (NotDetected) 11/05/23 17:58 C. pneumoniae DNA (PCR) Not Detected (NotDetected) 11/05/23 17:58 Coronavirus OC43 (PCR) Not Detected (NotDetected) 11/05/23 17:58 Coronavirus HKU1 (PCR) Not Detected (NotDetected) 11/05/23 17:58 Coronavirus 229E (PCR) Not Detected (NotDetected) 11/05/23 17:58 SARS-CoV-2 (PCR) Not Detected (NotDetected) 11/05/23 17:58 Coronavirus NL63 (PCR) Not Detected (NotDetected) 11/05/23 17:58 Human Metapneumovir PCR Not Detected (NotDetected) 11/05/23 17:58 Influenza Type A (PCR) Not Detected (NotDetected) 11/05/23 17:58 Influenza Type B (PCR) Not Detected (NotDetected) 11/05/23 17:58 M. pneumoniae (PCR) Not Detected (NotDetected) 11/05/23 17:58 Parainfluenza 1 (PCR) Not Detected (NotDetected) 11/05/23 17:58 Parainfluenza 2 (PCR) Not Detected (NotDetected) 11/05/23 17:58 Parainfluenza 3 (PCR) Not Detected (NotDetected) 11/05/23 17:58 Parainfluenza 4 (PCR) Not Detected (NotDetected) 11/05/23 17:58 RSV (PCR) Not Detected (NotDetected) 11/05/23 17:58 Entero/Rhino (PCR) Not Detected (NotDetected) 11/05/23 17:58 Impressions Chest X-Ray 11/05/23 17:33 SINGLE VIEW CHEST CLINICAL HISTORY: Generalized weakness. FINDINGS: An AP, portable, upright chest radiograph is compared to study dated 10/18/2023 and correlated with chest CT dated 06/16/2022. A hiatal hernia is noted. The heart Is enlarged noting atherosclerotic calcification of the thoracic aorta. Mitral annulus is densely calcified. The pulmonary vasculature is noncongested. Chronic interstitial thickening is similar to previous. There is mild bibasilar scarring/atelectasis. Small pleural effusions are suspected. There is no airspace consolidation typical for pneumonia. No pneumothorax is seen. The skeletal structures are osteopenic. The bony thorax is grossly intact. Degenerative change is noted in the shoulders and spine. IMPRESSION: 1. Cardiomegaly without radiographic evidence of congestive failure. 2. Suspect small pleural effusions. ACT 112: Negative or not required by law. Electronically signed by: Bernabe Pressley M.D. 11/05/2023 7:18 PM Code Status & VTE Plan Code Status ECG. Sinus rhythm with PACs at a rate of 78. Left ventricular hypertrophy. T wave inversion more evident in lateral leads. VTE Prophylaxis Plan VTE Prophylaxis will be ordered: Yes
[2023-11-06] MEDS: ACETAMINOPHEN 325 MG TAB PO PRN (02:38)
[2023-11-06] MEDS: HYDROmorphone INJ 0.5 MG/0.5 ML SYR IV STA ×3 (02:48→23:49)
[2023-11-06] MEDS: ISOSORBIDE DINITRATE 20 MG TAB PO SCH (06:08)
[2023-11-06 06:11] LABS: Basophils # (auto) 0.09 K/uL (0.00-0.20); Basophils % (auto) 1.6 %; Eosinophils # (auto) 0.43 K/uL (0.00-0.50); Eosinophils % (auto) 7.6 %; Hematocrit (blood only) 26.6 % (37.0-47.0); Hemoglobin 8.8 g/dl (12.0-16.0); Immature Granulocytes # (auto) 0.02 K/uL (0.01-0.20); Immature Granulocytes % (auto) 0.4 %; Lymphocytes # (auto) 0.71 K/uL (1.20-3.40); Lymphocytes % (auto) 12.5 %; Mean Corpuscular Hemoglobin 29.2 pg (25.0-34.0); Mean Corpuscular Hgb Conc 33.1 g/dL (32.0-36.0); Mean Corpuscular Volume 88.4 fL (80.0-100.0); Mean Platelet Volume 9.8 fL (9.4-12.4); Monocytes # (auto) 0.64 K/uL (0.11-0.59); Monocytes % (auto) 11.3 %; Neutrophils # (auto) 3.79 K/uL (1.40-6.50); Neutrophils % (auto) 66.6 %; Platelet Count 285 K/uL (130-400); RDW Coefficient of Variation 13.8 % (11.5-14.5); RDW Standard Deviation 44.9 fL (36.4-46.3); Red Blood Count 3.01 M/uL (4.20-5.40); White Blood Count 5.68 K/ul (4.8-10.8)
[2023-11-06 06:16] LABS: BUN Creatinine Ratio 26.9 (10-20); Calcium 9.3 mg/dl (8.6-10.3); Creatinine Clr Calc Pharmacy 22.2 ml/min; Est GFR (African American) 33.1 ml/min; Est GFR (Non-African American) 28.6 ml/min; Magnesium 1.6 mg/dl (1.7-2.4); Potassium 4.1 mmol/L (3.5-5.1)
[2023-11-06] MEDS: MAGNESIUM SULFATE / D5W 1 GM/100 ML BAG IV SCH (06:27)
[2023-11-06 06:30] LABS: Troponin I High Sensitivity 181.5 pg/ml (0-14)
--- OUTSIDE RECORDS SUMMARY | 2023-11-06 06:43 | External Medical Summary | Summary of Care ---
Author Name Unknown Organization [facility] Address [address] [facility] [address] Phone [phone] Care Team Providers Care Stakes Player Name Role Phone Jazzy Appiah DO Primary Care Provider [phone] Reason for Visit * Reason Onset Date Comments Medication Refill 09/28/2023 Encounter Details Date Type Department Care Team (Late st Contact Info) Description 09/28/2023 Refill Family Medicine [address] [place] [phone] Jazzy Appiah DO [address] [place] [address] [place] [id number] Allergies Active Allergy Reactions Criticality Noted Date Comments Ramipril Unknown Low 01/08/2014 Gabapentin Edema Other Medium 03/30/2011 Attempted x 3 with resultant fatigue and peripheral edema Oxycodone 06/09/2019 Makes me go crazy documented as of this encounter (statuses as of 11/02/2023) Medications Medication Sig Dispensed Refills Start Date [...] by mouth in the morning. 0 Active Atorvastatin Calcium 20 MG Oral Tablet [...] Pain, Severe. 60 Tablet 0 09/27/2023 Active documented as of this encounter (statuses as of 11/02/2023) Active Problems Problem Noted Date Diagnosed Date [...] 10/01/2013 Coronary artery disease invo lving [place] coronary artery of [place] heart without angina pectoris 05/20/2013 Hyperlipidemia with target LDL less than 70 08/23 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 02/28/2012 GENERAL OSTEOARTHROSIS Pulmonary hypertension Hiatal hernia documented as of this encounter (statuses as of 11/02/2023) Resolved Problems Problem Noted Date Diagnosed Date Resolved Date Hypertensive kidney disease with chronic kidney disease stage III 11/04/2018 06/03/2020 Overview: Per CKD protocol Carpal tunnel syndrome of left wrist 11/11/2015 09/18/2017 Tubular adenoma of colon 04/14/2015 Benign esophageal stricture 03/15/2015 09/18/2017 MEDICATION USE AGREEMENT 08/21/2014 Overview: Signed 08/21/2014 Nazanin Mayfield MD [facility] as backup Anemia 10/01/2013 [...] as of this encounter (statuses as of 11/02/2023) Immunizations Name Administration Dates Next Due COVID-19 [...] the money to buy more. Never true 10/29/19 24 Within the past 12 months, t he food you bought just didn't last and you didn't have money to get more. Never true 10/29/2023 Sex and Gender Information Value Date Recorded [...] Care Team (Late st Contact Info) Description 11/12/2023 9:30 AM EDT Telemedicine [facility] [address] [place] [address] Janett Jiménez PA-C [address] [place] [address] [facility] Chartered Wealth Manager [address] [place] [address] [place] [id number] 11/23/2023 1:00 PM EDT Office Visit Nephrology [address] [place] [address] Nanci Hein MD [address] [place] [address] [place] [address] 12/13/2023 2:30 PM EDT Cardiac Studies Cardiac Studies, [facility] [address] [facility] [place] [address] 12/19/2023 1:30 PM EDT Office Visit Cardiology, [facility] [address] [facility] [place] [address] Shyam Son MD [address] [facility] [place] [id number] 04/23/2024 3:10 PM EDT Office Visit Family Medicine [address] [phone] [address] [place] [address] Health Maintenance Due Date Last Done Comments Alpha-1 Antitrypsin 1961 Zoster Vaccines (1 of 2) 1993 DXA Scan 12/04/2020 12/04/2017, 07/24, 07/21/2010, Additional history exists COVID-19 Vaccine ( season) 2023 11/20/2020, 10/26/2020 Chawla's Esophagus Surveilance 04/09/2023 04/09/2020, 07/07/2019, 04/10/2012, Additional history exists *NEPHROLOGY REFERRAL DUE TO RESISTANT HTN 09/16/2023 GFR 04/26/2024 10/26/2023, 09/21, 10/12/2023, Additional history exists CKD PHOS USE SMARTSET 81536 10/10/202409/21, 11/22/2022, 11/18/2021, Additional history exists CKD HGB USE SMARTSET 59732 10/11/202410/11, 10/11/2023, 09/14/2023, Additional history exists Depression Screening 10/16/2024 10/17/2023 Albumin/Creatinine Ratio 10/25/2024 024, 03/06/2023, 05/23/2022, Additional history exists O2 ASSESSMENT COMPLETED IN PAST YEAR FOR COPD 10/28/2024 10/29/2023 DTaP,Tdap,and Td Vaccines (2 - Td or [...] this encounter Medical Devices Implanted Type Area Communications Analyst Device Identifier Shelf Expiration Date Model / Serial / Lot Cath Thermodilution 6fr - [id number] Implanted:Qty: 1 on 05/31/2022 by Yoli Rocha MD at [facility] [employer] [id number] 01/30/2024 [id number] / / [id number] Stent Synergy Xd Mr [id number] - [id number] Implanted:Qty: 1 on 07/27/2022 by Yoli Rocha MD at [facility] [employer] 11/08/2023 [id number] / / [id number] Cath Thermodilution 6fr - [id number] Implanted:Qty: 1 on 10/11/2023 by Shyam Son MD at [facility] [employer] [id number] 12/28/2024 [id number] / / [id number] documented as of this encounter Advance Directives [...] Relationship Healthcare Agent Relationshi p Communication [facility] Repr esentative (appointed verbally by patient or by statute hierarchy) [facility] Care Repr esentative (appointed verbally by patient or by statute hierarchy) Care Teams Stakes Player Relationship Specialty Start Date End Date Jazzy Appiah DO [address] [place] [address] [place] [id number] PCP - General Internal Medicine 03/12/17 documented as of this encounter
--- OUTSIDE RECORDS SUMMARY | 2023-11-06 06:43 | External Medical Summary | Summary of Care ---
Author Name Unknown Organization [facility] Address [address] [facility] [place] [address] Phone [phone] Care Team Providers Care Technology Specialist Name Role Phone Jazzy Appiah DO Primary Care Provider [phone] Reason for Visit * Reason Onset Date Comments Home Health 10/29/2023 Encounter Details Date Type Department Care Team (Late st Contact Info) Description 10/29/2023 Telephone Family Medicine [address] [address] Jazzy Appiah DO [address] [place] [address] [place] [address] Home Health Allergies Active Allergy Reactions Criticality Noted Date Comments Ramipril Unknown Low 01/08/2014 Gabapentin Edema Other Medium 03/30/2011 Attempted x 3 with resultant fatigue and peripheral edema Oxycodone 06/09/2019 Makes me go crazy documented as of this encounter (statuses as of 11/05/2023) Medications Medication Sig Dispensed Refills Start Date [...] Pain, Severe. 60 Tablet 0 09/27/2023 Active Isosorbide Dinitrate 20 MG Oral Tablet (Isordil) Take 1 Tablet by mouth 2 times a day. Patient to take at 7 AM and at NOON. 0 10/22/2023 Active Diclofenac Sodium 1 % External Gel (Voltaren) Apply 2 g topically to affected area in the morning and 2 g before bedtime. Apply to affected area. 0 10/22/2023 Active Polyethylene Glycol 3350 17 GM/SCOOP Oral Powder (Miralax) Take 17 g by mouth daily as needed for Constipation. 0 Active amLODIPine Besylate 10 MG Oral Tablet (Norvasc) Take 1 Tablet by mouth in the morning. 90 Tablet 3 10/26/2023 Active hydrALAZINE HCl 50 MG Oral Tablet (Apresoline)Indicati ons:Essential hypertension with goal blood pressure less than 140/90 Take 1 Tablet by mouth in the morning and 1 Tablet at noon and 1 Tablet in the evening and 1 Tablet before bedtime. 360 Tablet 1 10/26/2023 Active Torsemide 10 MG Oral Tablet (Demadex)Indications :Essential hypertension with goal blood pressure less than 140/90 Take 1 Tablet by mouth in the morning. 90 Tablet 1 10/26/2023 Active documented as of this encounter (statuses as of 11/05/2023) Active Problems Problem Noted Date Diagnosed Date [...] stenosis 10/01/2013 Coronary artery disease invo lving [place] coronary artery of [place] heart without angina pectoris 05/20/2013 Hyperlipidemia with target LDL less than 70 08/23 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 02/28/2012 GENERAL OSTEOARTHROSIS Pulmonary hypertension Hiatal hernia documented as of this encounter (statuses as of 11/05/2023) Resolved Problems Problem Noted Date Diagnosed Date Resolved Date Hypertensive kidney disease with chronic kidney disease stage III 11/04/2018 06/03/2020 Overview: Per CKD protocol Carpal tunnel syndrome of left wrist 11/11/2015 09/18/2017 Tubular adenoma of colon 04/14/2015 Benign esophageal stricture 03/15/2015 09/18/2017 MEDICATION USE AGREEMENT 08/21/2014 Overview: Signed 08/21/2014 Nazanin Mayfield MD [facility] as backup Anemia 10/01/2013 04/08/2015 [...] as of this encounter (statuses as of 11/05/2023) Immunizations Name Administration Dates Next Due COVID-19 mRNA, LNP-s, No Pre serve, 2-Dose Series ([employer]) 11/20/2020,10/26/2020 Pneumococcal Conjugate Vacc, 13 Valent [...] encounter Miscellaneous Notes * Telephone Encounter - Bonita Martin LPN - 11/05/2023 11:53 AM EDT This was faxed on 10/29/23 and I refaxed it today. * Telephone Encounter - Anais Gibson LPN - 10/29/2023 1:13 PM EDT Jazmyne calling from [facility]. Looking for certification and plan of care. Date is 10/14/23. Asking for it to be signed and faxed back. Fax is [phone] documented in this encounter Plan of Treatment Upcoming Encounters Date Type Department Care Team (Late st Contact Info) Description 11/12/2023 9:30 AM EDT Telemedicine [facility] [address] [place] [address] Janett Jiménez PA-C [address] [place] [address] Sue Holland [address] [place] [address] 11/23/2023 1:00 PM EDT Office Visit Nephrology [address] [place] [address] Nanci Hein MD 200 [facility] [place] [address] 12/13/2023 2:30 PM EDT Cardiac Studies Cardiac Studies, [facility] [address] [place] [address] 12/19/2023 1:30 PM EDT Office Visit Cardiology, [facility] [address] [place] [address] Shyam Son MD [address] [place] [address] 04/23/2024 3:10 PM EDT Office Visit Family Medicine [address] [place] [phone] Jazzy Appiah[address] [place] [address] Health Maintenance Due Date Last Done Comments Alpha-1 Antitrypsin 1961 Zoster Vaccines (1 of 2) 1993 DXA Scan 12/04/2020 12/04/2017, 07/24, 07/21/2010, Additional history exists COVID-19 Vaccine ( season) 2023 11/20/2020, 10/26/2020 Chawla's Esophagus Surveilance 04/09/2023 04/09/2020, 07/07/2019, 04/10/2012, Additional history exists *NEPHROLOGY REFERRAL DUE TO RESISTANT HTN 09/16/2023 GFR 04/26/2024 10/26/2023, 09/21, 10/12/2023, Additional history exists CKD PHOS USE SMARTSET 00878 10/10/202409/21, 11/22/2022, 11/18/2021, Additional history exists CKD HGB USE SMARTSET 26904 10/11/202410/11, 10/11/2023, 09/14/2023, Additional history exists Depression [...] this encounter Medical Devices Implanted Type Area Stretch Machine Operator Device Identifier Shelf Expiration Date Model / Serial / Lot Cath Thermodilution 6fr - [id number] Implanted:Qty: 1 on 05/31/2022 by [place]oli Rocha [place] [facility] [place] [employer] [employer] [place] [id number] 01/30/2024 [id number] / / [id number] Stent Synergy Xd Mr 4.38b38cz - [id number] Implanted:Qty: 1 on 07/27/2022 by [place]oli Rocha [place] [facility] [place] [employer] 11/08/2023 [id number] / / [id number] Cath Thermodilution 6fr - [id number] Implanted:Qty: 1 on 10/11/2023 by Shyam Son MD at [facility] [place] [employer] [employer] [place] [id number] 12/28/2024 [id number] / / [id number] documented as of this encounter Advance Directives [...] Relationship Healthcare Agent Relationshi p Communication Francisco Pugh Adult Child Health Care Repr esentative (appointed verbally by patient or by statute hierarchy) Jasvir Pugh Adult Child Health Care Repr esentative (appointed verbally by patient or by statute hierarchy) Care Teams Technology Specialist Relationship Specialty Start Date End Date Jazzy Appiah DO [address] [place] [address] [place] [address] PCP - General Internal Medicine 03/12/17 documented as of this encounter
--- OUTSIDE RECORDS SUMMARY | 2023-11-06 06:43 | External Medical Summary | Summary of Care ---
Author Name Unknown Organization [facility] Address [address] [place] [address] Phone [phone] Care Team Providers Care Aircraft Maintenance Manager Name Role Phone Jazzy Appiah DO Primary Care Provider [phone] Reason for Visit * Reason Onset Date Comments Advice 11/01/2023 Encounter Details Date Type Department Care Team (Late st Contact Info) Description 11/01/2023 Telephone Family Medicine [address] [phone] Jazzy Appiah DO [address] [place] [address] [place] [address] Advice Allergies Active Allergy Reactions Criticality Noted Date Comments Ramipril Unknown Low 01/08/2014 Gabapentin Edema Other Medium 03/30/2011 Attempted x 3 with resultant fatigue and peripheral edema Oxycodone 06/09/2019 Makes me go crazy documented as of this encounter (statuses as of 11/01/2023) Medications Medication Sig Dispensed Refills Start Date [...] as of this encounter (statuses as of 11/01/2023) Active Problems Problem Noted Date Diagnosed Date [...] stenosis 10/01/2013 Coronary artery disease invo lving [place] coronary artery of [place] heart without angina pectoris 05/20/2013 Hyperlipidemia with target LDL less than 70 08/23 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 02/28/2012 GENERAL OSTEOARTHROSIS Pulmonary hypertension Hiatal hernia documented as of this encounter (statuses as of 11/01/2023) Resolved Problems Problem Noted Date Diagnosed Date Resolved Date Hypertensive kidney disease with chronic kidney disease stage III 11/04/2018 06/03/2020 Overview: Per CKD protocol Carpal tunnel syndrome of left wrist 11/11/2015 09/18/2017 Tubular adenoma of colon 04/14/2015 Benign esophageal stricture 03/15/2015 09/18/2017 MEDICATION USE AGREEMENT 08/21/2014 Overview: Signed 08/21/2014 Nazanin Mayfield MD [facility] as backup Anemia 10/01/2013 04/08/2015 COPD, [...] as of this encounter (statuses as of 11/01/2023) Immunizations Name Administration Dates Next Due COVID-19 [...] Telephone Encounter - Jazzy Appiah DO - 11/01/2023 9:07 PM EDT Addressed in Tisha's encounter. * Telephone Encounter - Anna Hanks LPN - 11/01/2023 1:58 PM EDT Alisha from [facility] calling with JAZLYN. Even though pt has c/o of diarrhea starting yesterday, She has continue to take her miralax this morning. She had take her stool softener last night. Even though pt is alter and oriented, when asked questions she goes off topic and has to be re-asked to answer. T: 98.1 P 72 R 18 BP 148/54 Spo2 96% RA. If there are any recommendation for diarrhea contact pt and [facility]. * Telephone Encounter - Tisha Perez RN - 11/01/2023 12:32 PM EDT CM called and spoke with patient. See 'patient outreach' note dated for today (10/31). * Telephone Encounter - Jess Daley LPN - 11/01/2023 12:01 PM EDT JAZLYN Appiah. You just saw pt for hospital discharge on 10/25 Also made Tisha aware. * Telephone Encounter - Vianca Jennings LPN - 11/01/2023 11:46 AM EDT Concerns Kaylin, Calling from: [facility] Report/Concerns of: Diarrhea, Headache Vitals: T 98.0 P 76 RR 20 BP 146/58 SP O2 97% RA Narrative: Donnie calling in stating that when he arrive to the patient's house today, she said that she was not felling well. She stated that she started having diarrhea yesterday which increased through the night. She did have 2 liquid bowel movements this morning but not much. No blood or mucus noted within the stool. She noted to have a headache, rated 8/10, she took some Tylenol but does not seem to be easing up. She is on a 1500 ml fluid restriction. She did drank some ensure this morning. He thinks that she may be dehydrated with having so much diarrhea and not drinking much. Halfway is Scheduled to be coming in for a Visit later on today. [facility] Nurses Spoke with Jess in the office, she will make Dr. Appiah aware of the message. documented in this encounter Plan of Treatment Upcoming Encounters Date Type Department Care Team (Late st Contact Info) Description 11/23/2023 1:00 PM EDT Office Visit Nephrology [address] [place] [address] Nanci Hein MD [address] [place] [address] 12/13/2023 2:30 PM EDT Cardiac Studies Cardiac Studies, [facility] [address] [facility] [place] [address] 12/19/2023 1:30 PM EDT Office Visit Cardiology, [facility] 132 [facility] [place] [address] Shyam Son MD [address] [place] [address] 04/23/2024 3:10 PM EDT Office Visit Family Medicine [address] [place] [phone] [place] [address] Health Maintenance Due Date Last Done Comments Alpha-1 Antitrypsin 1961 Zoster Vaccines (1 of 2) 1993 DXA Scan 12/04/2020 12/04/2017, 07/24, 07/21/2010, Additional history exists COVID-19 Vaccine ( season) 2023 11/20/2020, 10/26/2020 Chawla's Esophagus Surveilance 04/09/2023 04/09/2020, 07/07/2019, 04/10/2012, Additional history exists *NEPHROLOGY REFERRAL DUE TO RESISTANT HTN 09/16/2023 GFR 04/26/2024 10/26/2023, 09/21, 10/12/2023, Additional history exists CKD PHOS USE SMARTSET 18810 10/10/202409/21, 11/22/2022, 11/18/2021, Additional history exists CKD HGB USE SMARTSET 26097 10/11/202410/11, 10/11/2023, 09/14/2023, Additional history exists Depression [...] this encounter Medical Devices Implanted Type Area Head Chef Device Identifier Shelf Expiration Date Model / Serial / Lot Cath Thermodilution 6fr - [id number] Implanted:Qty: 1 on 05/31/2022 by Yoli Rocha [place] [facility] [place] [employer] [id number] 01/30/2024 [id number] / / [id number] Stent Synergy Xd Mr 4.18w70sa - [id number] Implanted:Qty: 1 on 07/27/2022 by Yoli Rocha MD [place] [facility] [place] [employer] 11/08/2023 [id number] / / [id number] Cath Thermodilution 6fr - [id number] Implanted:Qty: 1 on 10/11/2023 by Shyam Son MD [place] [facility] [place] [employer] [id number] 12/28/2024 [id number] / / [id number] documented as of this encounter Advance Directives [...] patient or by statute hierarchy) Care Teams Aircraft Maintenance Manager Relationship Specialty Start Date End Date Jazzy Apipah DO [address] [place] [address] HOME [place] [phone] PCP - General Internal Medicine 03/12/17 documented as of this encounter
--- OUTSIDE RECORDS SUMMARY | 2023-11-06 06:43 | External Medical Summary | Summary of Care ---
Author Name Unknown Organization [facility] Address [address] [place] [address] Phone [phone] Care Team Providers Care Director Professional Services Name Role Phone AppiahJazzy bonds Primary Care Provider [phone] Reason for Visit * Reason Onset Date Comments Appointment 11/02/2023 Encounter Details Date Type Department Care Team (Late st Contact Info) Description 11/02/2023 Telephone [facility] [address] [place], [place] [id number] Services, Scheduling [address] [place] [address] Appointment (//) Allergies Active Allergy Reactions Criticality Noted Date [...] stenosis 10/01/2013 Coronary artery disease invo lving [place] coronary artery of [place] heart without angina pectoris 05/20/2013 Hyperlipidemia with [...] 08/21/2014 Overview: Signed 08/21/2014 Nazanin Mayfield MD [facility] as backup Anemia 10/01/2013 [...] money to buy more. Never true 10/29/19 Within the past 12 months, t he [...] encounter Miscellaneous Notes * Telephone Encounter - [place] Gallegos OSA - 11/02/2023 12:14 PM EDT Call to pt and confirmed [place] telemed for 11/11 at 10am, pt agreeable documented in this encounter Plan of Treatment Upcoming Encounters Date Type Department Care Team (Late st Contact Info) Description 11/12/2023 9:30 AM EDT Telemedicine [facility] [place] [address] [place] [address] Janett Jiménez PA-C [address] [place] [address] Sue Holland [address] [place] [address] 11/23/2023 1:00 PM EDT Office Visit Nephrology [address] [place] [address] Nanci Hein MD 200 [facility] [place] [address] 12/13/2023 2:30 PM EDT [facility] Studies [facility] [address] 12/19/2023 1:30 PM EDT Office Visit [facility]iology, [facility] [place] [address] Shyam Son MD [address] [place] [address] 04/23/2024 3:10 PM EDT Office Visit Family Medicine [address] [place] [phone] Jazzy Appiah, [address] [place] [address] Health Maintenance Due Date Last Done Comments Alpha-1 Antitrypsin 1961 Zoster Vaccines (1 of 2) 1993 DXA Scan 12/04/2020 12/04/2017, 07/24, 07/21/2010, Additional history exists COVID-19 Vaccine ( season) 2023 11/20/2020, 10/26/2020 Chawla's Esophagus Surveilance 04/09/2023 04/09/2020, 07/07/2019, 04/10/2012, Additional history exists *NEPHROLOGY REFERRAL DUE TO RESISTANT HTN 09/16/2023 GFR 04/26/2024 10/26/2023, 09/21, 10/12/2023, Additional history exists CKD PHOS USE SMARTSET 52143 10/10/202409/21, 11/22/2022, 11/18/2021, Additional history exists CKD HGB USE SMARTSET 53357 10/11/202410/11, 10/11/2023, 09/14/2023, Additional history exists Depression [...] this encounter Medical Devices Implanted Type Area Etl Data Architect Device Identifier Shelf Expiration Date Model / Serial / Lot Cath Thermodilution 6fr - [id number] Implanted:Qty: 1 on 05/31/2022 by Yoli Rocha MD at [facility] [place] [employer] [id number] 01/30/2024 [id number] / / [id number] Stent Synergy Xd Mr 4.07u02li - [id number] Implanted:Qty: 1 on 07/27/2022 by Yoli Rocha MD [place] [facility] [place] [employer] 11/08/2023 [id number] / / [id number] Cath Thermodilution 6fr - [id number] Implanted:Qty: 1 on 10/11/2023 by Shyam Son MD at [facility] [place] [employer] [id number] 12/28/2024 [id number] / / [id number] documented as of this encounter Advance Directives [...] patient or by statute hierarchy) Care Teams Director Professional Services Relationship Specialty Start Date End Date Jazzy Appiah DO [address] [place] [address] [place] [address] PCP - General Internal Medicine 03/12/17 documented as of this encounter
--- OUTSIDE RECORDS SUMMARY | 2023-11-06 06:44 | External Medical Summary | Summary of Care ---
Author Name Unknown Organization [facility] Address [address] [facility] [place] [address] Phone [phone] Care Team Providers Care Tin Worker Name Role Phone Jazzy Appiah DO Primary Care Provider [phone] Reason for Visit * Reason Onset Date Comments Appointment 10/26/2023 Hospital followu p/Cardiology Encounter Details Date Type Department Care Team (Late st Contact Info) Description 10/26/2023 Telephone Family Medicine [address] [place] [address] Jazzy Appiah DO [address] [place] [address] [place] [address] Appointment (Hospital followup/Cardiology ) Allergies Active Allergy Reactions Criticality Noted Date Comments Ramipril Unknown Low 01/08/2014 Gabapentin Edema Other Medium 03/30/2011 Attempted x 3 with resultant fatigue and peripheral edema Oxycodone 06/09/2019 Makes me go crazy documented as of this encounter (statuses as of 10/26/2023) Medications Medication Sig Dispensed Refills Start Date [...] as of this encounter (statuses as of 10/26/2023) Active Problems Problem Noted Date Diagnosed Date [...] stenosis 10/01/2013 Coronary artery disease invo lving [place] coronary artery of [place] heart without angina pectoris 05/20/2013 Hyperlipidemia with target LDL less than 70 08/23 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 02/28/2012 GENERAL OSTEOARTHROSIS Pulmonary hypertension Hiatal hernia documented as of this encounter (statuses as of 10/26/2023) Resolved Problems Problem Noted Date Diagnosed Date Resolved Date Hypertensive kidney disease with chronic kidney disease stage III 11/04/2018 06/03/2020 Overview: Per CKD protocol Carpal tunnel syndrome of left wrist 11/11/2015 09/18/2017 Tubular adenoma of colon 04/14/2015 Benign esophageal stricture 03/15/2015 09/18/2017 MEDICATION USE AGREEMENT 08/21/2014 Overview: Signed 08/21/2014 Nazanin Mayfield MD [facility] [...] as of this encounter (statuses as of 10/26/2023) Immunizations Name Administration Dates Next Due COVID-19 [...] shopping? (15 years old or older) Yes 03/21/20 24 Cognitive Status Response Date of Assessm ent Because of a physical, menta l, or emotional condition, do you have serious difficulty concentrating, remembering, or making decisions? (5 years old or older) No 10/11/2023 documented as of this encounter Miscellaneous Notes * Telephone Encounter - Fernando Hathaway OSA - 10/26/2023 1:01 PM EDT Walker, I have her on my list to schedule. I do not have any openings I can use, until a week or so,then I will call her, thank you. * Telephone Encounter - Ora Sainz OSA - 10/26/2023 12:57 PM EDT Norah needs scheduled to cardiology for a hospital followup documented in this encounter Plan of Treatment Upcoming Encounters Date Type Department Care Team (Late st Contact Info) Description 10/29/2023 11:00 AM EDT Home Visit Care Coordination and Integration [address] [place] [address] [address] [place] [address] 11/23/2023 1:00 PM EDT Office Visit Nephrology [address] [place] [address] Nanci Hein MD 200 [facility] [place] [address] 12/13/2023 2:30 PM EDT Cardiac Studies Cardiac Studies, [facility] 132 [facility] [place] [address] 12/19/2023 1:30 PM EDT Office Visit Cardiology, [facility] 132 [facility] [place] [address] Shyam Son MD [address] [facility] [place] [address] 04/23/2024 3:10 PM EDT Office Visit Family Medicine [address] [place] [address] [place] [address] Health Maintenance Due Date Last Done Comments Alpha-1 Antitrypsin 1961 Zoster Vaccines (1 of 2) 1993 DXA Scan 12/04/2020 12/04/2017, 07/24, 07/21/2010, Additional history exists COVID-19 Vaccine ( season) 2023 11/20/2020, 10/26/2020 Chawla's Esophagus Surveilance 04/09/2023 04/09/2020, 07/07/2019, 04/10/2012, Additional history exists *NEPHROLOGY REFERRAL DUE TO RESISTANT HTN 09/16/2023 Albumin/Creatinine Ratio 03/06/2024 023, 05/23/2022, 08/15/2021, Additional history exists GFR 04/19/2024 10/18/2023, 09/21, 10/11/2023, Additional history exists CKD PHOS USE SMARTSET 51705 10/10/202409/21, 11/22/2022, 11/18/2021, Additional history exists CKD HGB USE SMARTSET 08621 10/11/202410/11, 10/11/2023, 09/14/2023, Additional history exists Depression Screening 10/16/2024 10/17/2023 O2 ASSESSMENT COMPLETED IN PAST YEAR FOR COPD 10/25/2024 10/26/2023 DTaP,Tdap,and Td Vaccines (2 - Td or [...] this encounter Medical Devices Implanted Type Area Brazing Machine Setter Device Identifier Shelf Expiration Date Model / Serial / Lot Cath Thermodilution 6fr - [id number] Implanted:Qty: 1 on 05/31/2022 by Yoli Rocha MD at [facility] [place] [employer]IAN [id number] 01/30/2024 [id number] / / [id number] Stent Synergy Xd Mr 4.51q97nn - [id number] Implanted:Qty: 1 on 07/27/2022 by Yoli Rocha MD at [facility] [place] [employer] 11/08/2023 [id number] / / [id number] Cath Thermodilution 6fr - [id number] Implanted:Qty: 1 on 10/11/2023 by Shyam Son MD at [facility] [place] [employer] [id number] 12/28/2024 [id number] / / [id number] documented as of this encounter Advance Directives [...] patient or by statute hierarchy) Care Teams Tin Worker Relationship Specialty Start Date End Date Jazzy Appiah DO [address] [place] [address] [place] [address] PCP - General Internal Medicine 03/12/17 documented as of this encounter
--- OUTSIDE RECORDS SUMMARY | 2023-11-06 06:44 | External Medical Summary | Summary of Care ---
Author Name Unknown Organization [facility] Address [address] [place] [address] Phone [phone] Care Team Providers Care City Planning Engineer Name Role Phone Jazzy Appiah DO Primary Care Provider [phone] Reason for Visit * Reason Onset Date Comments Home Health 10/24/2023 Encounter Details Date Type Department Care Team (Late st Contact Info) Description 10/24/2023 Telephone Family Medicine [address] [phone] Jazzy Appiah DO [address] [place] [address] [place] [address] Home Health Allergies Active Allergy Reactions Criticality Noted Date Comments Ramipril Unknown Low 01/08/2014 Gabapentin Edema Other Medium 03/30/2011 Attempted x 3 with resultant fatigue and peripheral edema Oxycodone 06/09/2019 Makes me go crazy documented as of this encounter (statuses as of 10/29/2023) Medications Medication Sig Dispensed Refills Start Date [...] morning. 90 Capsule 0 08/02/19 24 Active HYDROcodone-Acetam inophen 10-325 MG Oral TabletIndications: Generalized osteoarthritis,Deg eneration of lumbosacral intervertebral disc Take 1 Tablet by mouth 2 times a day as needed for Pain, Severe. 60 Tablet 0 09/27/19 24 Active Isosorbide Dinitrate 20 MG Oral Tablet (Isordil) Take 1 Tablet by mouth 2 times a day. Patient to take at 7 AM and at NOON. 0 10/22/19 24 Active Diclofenac Sodium 1 % External Gel (Voltaren) Apply 2 g topically to affected area in the morning and 2 g before bedtime. Apply to affected area. 0 10/22/19 24 Active Polyethylene Glycol 3350 17 GM/SCOOP Oral Powder (Miralax) Take 17 g by mouth daily as needed for Constipation. 0 Active hydrALAZINE HCl 50 MG Oral Tablet (Apresoline)Indica tions:Essential hypertension with goal blood pressure less than 140/90 Take 1 Tablet by mouth in the morning and 1 Tablet at noon and 1 Tablet before bedtime. 270 Tablet 3 09/26/19 24 024 Discontinued(Re fill) amLODIPine Besylate 5 MG Oral Tablet (Norvasc)Indicatio ns:Essential hypertension with goal blood pressure less than 140/90 Take 1.5 Tablets by mouth in the morning. 135 Tablet 1 10/12/19 24 024 Discontinued Torsemide 10 MG Oral Tablet (Demadex)Indicatio ns:Essential hypertension with goal blood pressure less than 140/90 Take 2 (20 mg) tablets by mouth on Sunday, Sunday, and Sunday. Take 1 tablet (10 mg) all other days. (Sunday, , Sunday & Sunday) 120 Tablet 3 10/12/19 24 024 Discontinued(Re fill) Lidocaine 5 % External Patch (Lidoderm) Place 1 Patch topically on the skin daily. 0 10/23/19 24 024 Discontinued documented as of this encounter (statuses as of 10/29/2023) Active Problems Problem Noted Date Diagnosed Date [...] stenosis 10/01/2013 Coronary artery disease invo lving king salmon coronary artery of king salmon heart without angina pectoris 05/20/2013 Hyperlipidemia with target LDL less than 70 08/23 Chalwa's esophagus without dysplasia 02/28/2012 GENERAL OSTEOARTHROSIS Pulmonary hypertension Hiatal hernia documented as of this encounter (statuses as of 10/29/2023) Resolved Problems Problem Noted Date Diagnosed Date Resolved Date Hypertensive kidney disease with chronic kidney disease stage III 11/04/2018 06/03/2020 Overview: Per CKD protocol Carpal tunnel syndrome of left wrist 11/11/2015 09/18/2017 Tubular adenoma of colon 04/14/2015 Benign esophageal stricture 03/15/2015 09/18/2017 MEDICATION USE AGREEMENT 08/21/2014 Overview: Signed 08/21/2014 Nazanin Mayfield MD [facility] [...] as of this encounter (statuses as of 10/29/2023) Immunizations Name Administration Dates Next Due COVID-19 [...] encounter Miscellaneous Notes * Telephone Encounter - Samira Foley CMA - 10/29/2023 2:10 PM EDT I let LADY and Georgina know. * Telephone Encounter - Jazzy Appiah DO - 10/26/2023 1:44 PM EDT No fleets enema. She can do soap suds enema if needed. * Telephone Encounter - Samira Slater LPN - 10/24/2023 2:16 PM EDT Admission/Start of Care Admission/Start of Care: Julieta LUCIA, Calling from: [facility] Patient was Admitted to: [facility], for: SHEA from 10/17 to 10/21 Referral ordered by: [facility] Referral received for: [facility] and PT Start of care completed on: 10/24/23 Report/Concerns of: Constipation Vitals: T 98.3 P 54 regular RR 20 BP right arm 148/50 SP O2 95% RA Lung sounds - clear - denies SOB or cough. Weight 137lb Non pitting Edema - bilateral feet. Patient wraps her legs bilaterally up to her knees every morning, takes off at bed time. Narrative: KHARI Rendon calling from [facility]. Patient was on 1200 ml fluid restriction. DC from [facility] says 1500ml fluid restriction. (FYI) Patient is experiencing constipation again. She hasn't had a BM since 10/17 . Miralax today and yesterday, daily stool softeners, eating prunes. Bowel sounds x 4 quad, passing gas, mild distention. Low abdominal pain. Patient asking if fleets enema would be okay? nurse would be able to do the enema if an order issent. She has the urge to have a BM but unable to push. Would you like any labs drawn before the patients 10/25 appt? Please place orders if so. Nursing plans to see the patient 2-3 times a week for a couple weeks. Julieta is going to add a social worker school referral also. Next PT visit(s) on 10/24 They will call with any updates or additional concerns from the upcoming visit. Last Office Visit: 09/14/2023 Has patient been scheduled or seen in the office for a follow up visit: Yes- on10/26/23 Advised that orders will be signed by Dr. Appiah and to fax to the office for signature. Call back [facility] with advice or orders at [phone] Please fax orders to [phone] documented in this encounter Plan of Treatment Upcoming Encounters Date Type Department Care Team (Late st Contact Info) Description 11/23/2023 1:00 PM EDT Office Visit Nephrology [address] [place] [address] Nanci Hein MD [address] [place], [place] [address] 12/13/2023 2:30 PM EDT [facility] [place] [address] 12/19/2023 1:30 PM EDT [facility] [place] [address] [facility] [place] [address] Shyam Son MD [address] [facility] [place] [id number] 04/23/2024 3:10 PM EDT Office Visit Family Medicine [address] [place] [phone] [place] [address] Health Maintenance Due Date Last Done Comments Alpha-1 Antitrypsin 1961 Zoster Vaccines (1 of 2) 1993 DXA Scan 12/04/2020 12/04/2017, 07/24, 07/21/2010, Additional history exists COVID-19 Vaccine ( season) 2023 11/20/2020, 10/26/2020 Chawla's Esophagus Surveilance 04/09/2023 04/09/2020, 07/07/2019, 04/10/2012, Additional history exists *NEPHROLOGY REFERRAL DUE TO RESISTANT HTN 09/16/2023 GFR 04/26/2024 10/26/2023, 09/21, 10/12/2023, Additional history exists CKD PHOS USE SMARTSET 87444 10/10/202409/21, 11/22/2022, 11/18/2021, Additional history exists CKD HGB USE SMARTSET 79134 10/11/202410/11, 10/11/2023, 09/14/2023, Additional history exists Depression [...] this encounter Medical Devices Implanted Type Area Rotary Drum Tanner Device Identifier Shelf Expiration Date Model / Serial / Lot Cath Thermodilution 6fr - [id number] Implanted:Qty: 1 on 05/31/2022 by Yoli Rocha MD [facility] [employer] [id number] 01/30/2024 [id number] / / [id number] Stent Synergy Xd Mr 4.61u64bp - [id number] Implanted:Qty: 1 on 07/27/2022 by Yoli Rocha MD [place] [facility] [employer] 11/08/2023 [id number] / / [id number] Cath Thermodilution 6fr - [id number] Implanted:Qty: 1 on 10/11/2023 by Shyam Son MD at [facility] [employer] [id number] 12/28/2024 [id number] / / [id number] documented as of this encounter Advance Directives [...] Agents on File Name Relationship Healthcare Agent [facility] p Communication Francisco Pugh Adult Child Health Care Repr esentative (appointed verbally by patient or by statute hierarchy) Jasvir Pugh Adult Child Health Care Repr esentative (appointed verbally by patient or by statute hierarchy) Care Teams City Planning Engineer Relationship Specialty Start Date End Date Jazzy Appiah DO [address] [place] [address] HOME [place] [phone] PCP - General Internal Medicine 03/12/17 documented as of this encounter
--- OUTSIDE RECORDS SUMMARY | 2023-11-06 06:44 | External Medical Summary | Summary of Care ---
Author Name Unknown Organization [facility] Address [address] [facility] [place] [address] Phone [phone] Care Team Providers Care Plaster Form Maker Name Role Phone Jazzy Appiah DO Primary Care Provider [phone] Encounter Details Date Type Department Care Team (Late st Contact Info) Description 10/29/2023 11:00 AM EDT Home Visit Care Coordination and Integration [address] [facility] [address] Sue Holland Community Health Solution Maker [address] [place] [address] [place] [address] Chronic diastolic heart failure (HCC)* Allergies Active Allergy Reactions Criticality Noted Date [...] stenosis 10/01/2013 Coronary artery disease invo lving tanana coronary artery of tanana heart without angina pectoris 05/20/2013 Hyperlipidemia with [...] 08/21/2014 Overview: Signed 08/21/2014 Nazanin Mayfield MD [facility] as backup Anemia 10/01/2013 04/08/2015 COPD, [...] mRNA, LNP-s, No Pre serve, 2-Dose Series (Aventeon) 11/20/2020,10/26/2020 Pneumococcal Conjugate Vacc, 13 Valent (Prevnar) [...] Sign Reading Time Taken Comments Blood Pressure 150/40 10/29/2023 11:42 AM EDT Pulse 88 10/29/2023 11:42 AM EDT Temperature 36.9 C (98.4 F) 10/29/2023 11:42 AM E DT Respiratory Rate 18 10/29/2023 11:42 AM EDT Oxygen Saturation 91% 10/29/2023 11:42 AM EDT Inhaled Oxygen Concentration - - Weight - [...] No 10/11/2023 documented as of this encounter Progress Notes * Sue Holland, Community Health Solution Maker - 10/29/2023 11:20 AM EDT Telemedicine visit: No Community Health Solution Maker (PATRICIA) documentation: Was just in to see PCP on 10/25 - all meds are up to date. [facility] following - nurse visit this AM. Son, Jasvir, is present for visit - states HH is working on a scale for daily weights and care aides every morning. Possibly sending in a social services designee? to help applying for assistance. One son lives across the street - comes in daily after work to help patient. The other, Jasvir, lives 45 min away. Is involved as much as he can be. Came in today Edema to BLE. nurse suggested diabetic socks Would benefit from RTS Sponge bathes d/t step over shower. Son is considering modifications. BP was 170/65 with home cuff this approx 0845. Then took her medication shortly thereafter. Son is concerned about DBP. Checked on both right and let arms - BP the same. BP 150/40 (BP Site: Right Arm, BP Position: Sitting, BP Cuff Size: Regular) | Pulse 88 | Temp 36.9 C (98.4 F) | Resp 18 | SpO2 91% Patient declines feeling weak or dizzy. Had patient stand and walk to kitchen and back to complete TUG test - gait was steady. Patient denied feeling light headed or SOB upon completing TUG. Son reports patient was having CP, SOB, headache. Son states "she looked awful". They called [facility] button grader - had them weigh her. Weight yesterday 137# Was advised that if she got any worse, to go to the ED. Weight 134# this AM - however son questions accuracy of her scale. [facility] is going to send a digital scale they will use to monitor her weights in the future. Advised patient and son that the services home health is offering will likely only be available to her while she is on caseload. Upon DC RNCM may set up [facility] monitoring services. [facility]. Patient familiar to [facility] from past [facility] visits. Per care team review - Heather Camachomer still listed. Explained [facility] program to patient and son. They feel this would be beneficial to her. Will ask [facility] team to consider her for enrollment. documented in this encounter Plan of Treatment Upcoming Encounters Date Type Department Care Team (Late st Contact Info) Description 11/23/2023 1:00 PM EDT Office Visit Nephrology [address] [place] [address] Nanci Hein MD [facility] [place] [address] 12/13/2023 2:30 PM EDT Cardiac Studies Cardiac Studies, [address] [place] [address] 12/19/2023 1:30 PM EDT Office Visit Cardiology, [address] [place] [address] Shyam Son MD [address] [place] [address] 04/23/2024 3:10 PM EDT Office Visit Family Medicine [address] [place] [phone] Jazzy Appiah [address] [place] [address] Health Maintenance Due Date Last Done Comments Alpha-1 Antitrypsin 1961 Zoster Vaccines (1 of 2) 1993 DXA Scan 12/04/2020 12/04/2017, 07/24, 07/21/2010, Additional history exists COVID-19 Vaccine ( season) 2023 11/20/2020, 10/26/2020 Chawla's Esophagus Surveilance 04/09/2023 04/09/2020, 07/07/2019, 04/10/2012, Additional history exists *NEPHROLOGY REFERRAL DUE TO RESISTANT HTN 09/16/2023 GFR 04/26/2024 10/26/2023, 09/21, 10/12/2023, Additional history exists CKD PHOS USE SMARTSET 18323 10/10/202409/21, 11/22/2022, 11/18/2021, Additional history exists CKD HGB USE SMARTSET 26763 10/11/202410/11, 10/11/2023, 09/14/2023, Additional history exists Depression [...] this encounter Medical Devices Implanted Type Area Menagerie Superintendent Device Identifier Shelf Expiration Date Model / Serial / Lot Cath Thermodilution 6fr - [id number] Implanted:Qty: 1 on 05/31/2022 by Yoli Rocha MD at [facility] [employer] [id number] 01/30/2024 [id number] / / [id number] Stent Synergy Xd Mr 4.83g85fg - [id number] Implanted:Qty: 1 on 07/27/2022 by Yoli Rocha MD at [facility] [employer] 11/08/2023 [id number] / / [id number] Cath Thermodilution 6fr - [id number] Implanted:Qty: 1 on 10/11/2023 by Shyam Son MD at [facility] [employer] [id number] 12/28/2024 [id number] / / [id number] documented as of this encounter Visit Diagnoses Diagnosis Chronic diastolic heart failure (HCC)- Primary Chronic diastolic heart failure documented in this encounter Advance Directives Latest [...] patient or by statute hierarchy) Care Teams Plaster Form Maker Relationship Specialty Start Date End Date Jazzy Appiah DO [address] [place] [address] [place] [address] PCP - General Internal Medicine 03/12/17 documented as of this encounter
--- OUTSIDE RECORDS SUMMARY | 2023-11-06 06:44 | External Medical Summary | Summary of Care ---
Author Name Unknown Organization [facility] Address [address] [facility] [address] Phone [phone] Care Team Providers Care Sorter/Assay Tech Name Role Phone Jazzy Appiah DO Primary Care Provider [phone] Reason for Visit * Reason Onset Date Comments Hospital Follow-Up 10/24/2023 Encounter Details Date Type Department Care Team (Late st Contact Info) Description 10/24/2023 Telephone General Internal Medicine [facility] [address] [facility] [place] [address] Jazzy Appiah DO [address] [place] [address] [place] [address] Hospital Follow-Up Allergies Active Allergy Reactions Criticality Noted Date [...] daily as needed for Constipation. 0 Active documented as of this encounter (statuses [...] stenosis 10/01/2013 Coronary artery disease invo lving eek coronary artery of eek heart without angina pectoris 05/20/2013 Hyperlipidemia with [...] 08/21/2014 Overview: Signed 08/21/2014 Nazanin Mayfield MD [facility] Anemia 10/01/2013 04/08/2015 COPD, [...] mRNA, LNP-s, No Pre serve, 2-Dose Series (50 Cubes) 11/20/2020,10/26/2020 Pneumococcal Conjugate Vacc, 13 Valent (Prevnar) [...] Telephone Encounter - Fernando Hathaway OSA - 10/29/2023 12:58 PM EDT Cannot schedule for a Gen Card appt until late October when CLOS in RET/REL open. Patient is scheduled with Huy on, 12/19/23 at 130 pm * Telephone Encounter - Roger Woods RN - 10/24/2023 2:03 PM EDT Patient discharged 10/22/23 from [facility]. Cardiology consulted for chest pain, hx of , CHF. Recruitment Internship Jean Claude recommends arrange cardiology follow up in 2-4 weeks. May need close f/u with valve clinic given recurrent CHF exacerbation and moderate . Please assist with a cardiology follow up appointment. Thank you documented in this encounter Plan of Treatment Upcoming Encounters Date Type Department Care Team (Late st Contact Info) Description 11/23/2023 1:00 PM EDT Office Visit Nephrology [address] [place] [address] Nanci Hein MD [address] [place] [address] 12/13/2023 2:30 PM EDT Cardiac Studies [facility] [place] [address] 12/19/2023 1:30 PM EDT Office Visit [facility], [facility] [place] [address] Shyam Son MD [address] [place] [address] 04/23/2024 3:10 PM EDT Office Visit Family Medicine [address] [place] [phone] [address] [place] [address] Health Maintenance Due Date Last Done Comments Alpha-1 Antitrypsin 1961 Zoster Vaccines (1 of 2) 1993 DXA Scan 12/04/2020 12/04/2017, 07/24, 07/21/2010, Additional history exists COVID-19 Vaccine ( season) 2023 11/20/2020, 10/26/2020 Chawla's Esophagus Surveilance 04/09/2023 04/09/2020, 07/07/2019, 04/10/2012, Additional history exists *NEPHROLOGY REFERRAL DUE TO RESISTANT HTN 09/16/2023 GFR 04/26/2024 10/26/2023, 09/21, 10/12/2023, Additional history exists CKD PHOS USE SMARTSET 56565 10/10/202409/21, 11/22/2022, 11/18/2021, Additional history exists CKD HGB USE SMARTSET 80204 10/11/202410/11, 10/11/2023, 09/14/2023, Additional history exists Depression [...] encounter Medical Devices Implanted Type Area Heel Attacher Device Identifier Shelf Expiration Date Model / Serial / Lot Cath Thermodilution 6fr - [id number] Implanted:Qty: 1 on 05/31/2022 by Yoli Rocha MD [place] [facility] [employer] [id number] 01/30/2024 [id number] / / [id number] Stent Synergy Xd Mr 4.11u70zs - [id number] Implanted:Qty: 1 on 07/27/2022 by Yoli Rocha MD at [facility] [employer] 11/08/2023 [id number] / / [id number] Cath Thermodilution 6fr - [id number] Implanted:Qty: 1 on 10/11/2023 by Shyam Son MD at [facility] [employer] [id number] 12/28/2024 [id number] / / [id number] documented as of this encounter Advance Directives [...] patient or by statute hierarchy) Care Teams Sorter/Assay Tech Relationship Specialty Start Date End Date Jazzy Appiah DO [address] [place] [address] [place] [address] PCP - General Internal Medicine 03/12/17 documented as of this encounter
--- OUTSIDE RECORDS SUMMARY | 2023-11-06 06:44 | External Medical Summary | Summary of Care ---
Author Name Unknown Organization [facility] Address [address] [facility] [place] [address] Phone [phone] Care Team Providers Care Distribution Accounting Clerk Name Role Phone Jazzy Appiah DO Primary Care Provider [phone] Reason for Visit * Reason Comments Outpatient Testing Encounter Details Date Type Department Care Team (Late st Contact Info) Description 10/26/2023 12:40 PM EDT Laboratory Laboratory [address] [place] [phone] [place] [address] SHEA (acute kidney injury) (HCC); Hyponatremia; Vitamin D deficiency; Essential hypertension with goal blood pressure less [...] stenosis 10/01/2013 Coronary artery disease invo lving [place] coronary artery of [place] heart without angina pectoris 05/20/2013 Hyperlipidemia with [...] 08/21/2014 Overview: Signed 08/21/2014 Nazanin Mayfield MD [facility] as backup Anemia 10/01/2013 04/08/2015 [...] Visit Care Coordination and Integration [address] [place] [address] [place] [address] 11/23/2023 1:00 PM EDT Office Visit Nephrology [address] [place] [address] Nanci Hein MD 200 [facility] [place] [address] 12/13/2023 2:30 PM EDT Cardiac Studies Cardiac Studies, [facility] [address] [place] [address] 12/19/2023 1:30 PM EDT Office Visit Cardiology, [facility] [address] [place] [address] Shyam Son MD [address] [place] [address] 04/23/2024 3:10 PM EDT Office Visit Family Medicine [address] [place] [phone] Jazzy Appiah DO [address] [place] [address] [place] [address] Pending Results Name Type Priority Associated Diagnoses Date /Time URINALYSIS WITH MICROSCOPIC EXAM Lab Routine SHEA (acute kidney injury) (HCC) Hyponatremia 10/26/2023 3:55 PM EDT ALBUMIN / CREATININE RATIO, URINE Lab Routine SHEA (acute kidney injury) ([facility]) Hyponatremia 10/26/2023 3:55 PM EDT PTH Lab Routine SHEA (acute kidney injury) ([facility]) Hyponatremia 10/26/2023 12:40 PM EDT 25-HYDROXY VITAMIN D Lab Routine SHEA (acute kidney injury) ([facility]) Hyponatremia Vitamin D deficiency 10/26/2023 12:40 PM EDT IRON SCREEN, INCLUDING TIBC Lab Routine SHEA (acute kidney injury) ([facility]) Hyponatremia 10/26/2023 12:40 PM EDT BASIC METABOLIC PANEL Lab Routine Essential hypertension with goal blood pressure less than 140/90 10/26/2023 12:40 PM EDT Health Maintenance Due Date Last Done [...] Additional history exists CKD PHOS USE SMARTSET 61554 10/10/202409/21, 11/22/2022, 11/18/2021, Additional history exists CKD HGB USE SMARTSET 20120 10/11/202410/11, 10/11/2023, 09/14/2023, Additional history exists Depression [...] this encounter Medical Devices Implanted Type Area Endoscopy Rn Device Identifier Shelf Expiration Date Model / Serial / Lot Cath Thermodilution 6fr - [id number] Implanted:Qty: 1 on 05/31/2022 by Yoli Rocha MD at [facility] [employer] [id number] 01/30/2024 [id number] / / [id number] Stent Synergy Xd Mr 4.66l89ql - [id number] Implanted:Qty: 1 on 07/27/2022 by Yoli Rocha MD at [facility] [employer] 11/08/2023 [id number] / / [id number] Cath Thermodilution 6fr - [id number] Implanted:Qty: 1 on 10/11/2023 by Shyam Son MD at [facility] [employer] [id number] 12/28/2024 [id number] / / [id number] documented as of this encounter Visit Diagnoses Diagnosis SHEA (acute kidney injury) (HCC) Acute kidney failure, unspecified Hyponatremia Hyposmolality and/or hyponatremia Vitamin D deficiency Unspecified vitamin D deficiency Essential hypertension with goal blood pressure less [...] patient or by statute hierarchy) Care Teams Distribution Accounting Clerk Relationship Specialty Start Date End Date Jazzy Appiah DO [address] [place] [address] HOME [place] [phone] PCP - General Internal Medicine 03/12/17 documented as of this encounter
--- OUTSIDE RECORDS SUMMARY | 2023-11-06 06:45 | External Medical Summary | Summary of Care ---
Author Name Unknown Organization [facility] Address 100 [facility] [place] [address] Phone [phone] Care Team Providers Care Electrolysis Engineer Name Role Phone Jazzy Appiah DO Primary Care Provider [phone] Reason for Visit * Reason Onset Date Comments Hospital Follow-Up Pt states fee ling "a little bit better each day". Pt states her main concern is kidneys and sodium levels. Hospital Follow-Up 10/26/2023 Encounter Details Date Type Department Care Team (Late st Contact Info) Description 10/26/2023 11:50 AM EDT Office Visit Family Medicine [address] [place] [phone] [address] [place] [address] Hospital discharge follow-up*; Essential hypertension with goal blood pressure less than 140/90; Pulmonary hypertension (HCC); Moderate aortic stenosis Allergies Active Allergy Reactions Criticality Noted Date [...] mouth in the morning. 90 Tablet 3 10/26/19 24 Active hydrALAZINE HCl 50 MG Oral Tablet (Apresoline)Indica tions:Essential hypertension with goal blood pressure less than 140/90 Take 1 Tablet by mouth in the morning and 1 Tablet at noon and 1 Tablet in the evening and 1 Tablet before bedtime. 360 Tablet 1 10/26/19 24 Active Torsemide 10 MG Oral Tablet (Demadex)Indicatio ns:Essential hypertension with goal blood pressure less than 140/90 Take 1 Tablet by mouth in the morning. 90 Tablet 1 10/26/19 24 Active hydrALAZINE HCl 50 MG Oral Tablet [...] stenosis 10/01/2013 Coronary artery disease invo lving [place] coronary artery of [place] heart without angina pectoris 05/20/2013 Hyperlipidemia with [...] Overview: Signed 08/21/2014 Nazanin Mayfield MD [facility] as backup Anemia 10/01/2013 04/08/2015 COPD, [...] 04/12/20042004 AORTIC VALVE SCLEROSIS 02/19/200410/07 Reflux esophagitis 08/21/2003200 9 Overview: Resolved per Duplicate Protocol #2. [...] mRNA, LNP-s, No Pre serve, 2-Dose Series (Conscious Box) 11/20/2020,10/26/2020 Pneumococcal Conjugate Vacc, 13 Valent (Prevnar) [...] money to buy more. Never true 10/17/19 Within the past 12 months, t he [...] Sign Reading Time Taken Comments Blood Pressure 152/42 10/26/2023 11:55 AM EDT Pulse 60 10/26/2023 11:55 AM EDT Temperature 36.8 C (98.2 F) 10/26/2023 11:55 AM E DT Respiratory Rate - - Oxygen Saturation 92% 10/26/2023 11:55 AM EDT Inhaled Oxygen Concentration - - Weight 62.1 kg (137 lb) 10/26/2023 11:55 AM EDT Height - - Body Mass Index 25.06 10/11/2023 3:54 AM EDT documented in this [...] this encounter Progress Notes * Jazzy Appiah, DO - 10/26/2023 12:03 PM EDT SUBJECTIVE: Georgina Pugh is a 78 year old female. Chief Complaint Patient presents with Hospital Follow-Up Pt states feeling "a little bit better each day". Pt states her main concern is kidneys and sodium levels. Hospital Follow-Up Recent Admission: Patient was recently admitted to [facility] and [facility]. The date of discharge was 10/12/23 and 10/23/23. Discharge report received and reviewed. Originally admitted to [facility] due to concern for worsening aortic stenosis or ACS. Underwent right andleft heart cath which showed worsening pulmonary hypertension. Meds were adjusted to optimize her heart failure regimen. Then readmitted with SHEA, hyponatremia, and HTN. Meds further adjusted. Diuretics were held on admission but resumed on discharge. HPI: Georgina Pugh presents today with her son for HD follow up. Home health is involved - [facility]. She had some trouble breathing this morning - no chest pain but felt like she couldn't breathe. Shetook a nitro and it seemed to ease up. Sunday, Sunday, and she accidentally took 2 torsemide instead of one and she was also taking 20 mg of amlodipine. Her son helped her get this sorted out. She was using lidocaine patches in the hospital but has not needed them since returning home. She has cut back her vitamin D and vitamin B12 to half of the previous dose and has also reduced her iron pill to twice a week. She is scheduled to see nephrology next month. Missed her follow up appointment with cardiology as she was in the hospital. Patient Active Problem List Diagnosis Code GENERAL OSTEOARTHROSIS M15.9 Pulmonary hypertension I27.20 Hiatal hernia K44.9 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 K22.70 Hyperlipidemia with target LDL less than 70 E78.5 Coronary artery disease involving [place] coronary artery of [place] heart without angina pectoris I25.10 Aortic valve stenosis I35.0 Degenerative disc disease, cervical M50.30 PAD (peripheral artery disease) ([facility]) I73.9 Iron deficiency anemia D50.9 Lumbar degenerative disc disease M51.36 Lumbar spinal stenosis M48.061 Gastroesophageal reflux disease without esophagitis K21.9 Essential hypertension with goal blood pressure less than 140/90 I10 Cervical spinal stenosis M48.02 Drug-induced constipation K59.03 MEDICATION USE AGREEMENT [id number] Carotid stenosis, non-symptomatic, bilateral I65.23 COPD, mild (HCC) J44.9 Vaginal atrophy N95.2 Kyphosis M40.209 History of colon polyps Z86.010 Other proteinuria R80.8 B12 deficiency E53.8 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 Atorvastatin Calcium 20 MG Oral Tablet (Lipitor) Take 1 Tablet by mouth in the morning. 90 Tablet 1 Omeprazole 20 MG Oral Capsule Delayed Release (PriLOSEC) Take 1 Capsule by mouth in the morning. 90Capsule 0 HYDROcodone-Acetaminophen 10-325 MG Oral Tablet Take 1 Tablet by mouth 2 times a day as needed for Pain, Severe. 60 Tablet 0 hydrALAZINE HCl 50 MG Oral Tablet (Apresoline) Take 1 Tablet by mouth in the morning and 1 Tablet at noon and 1 Tablet before bedtime. (Patient taking differently: Take 1 Tablet by mouth in the morning and 1 Tablet at noon and 1 Tablet in the evening and 1 Tablet before bedtime.) 270 Tablet 3 amLODIPine Besylate 5 MG Oral Tablet (Norvasc) Take 1.5 Tablets by mouth in the morning. (Patient taking differently: Take 2 Tablets by mouth in the morning.) 135 Tablet 1 Torsemide 10 MG Oral Tablet (Demadex) Take 2 (20 mg) tablets by mouth on Sunday, Sunday, and Sunday. Take 1 tablet (10 mg) all other days. (Sunday, , Sunday & Sunday) (Patient taking differently: Take 1 Tablet by mouth in the morning.) 120 Tablet 3 Isosorbide Dinitrate 20 MG Oral Tablet (Isordil) Take 1 Tablet by mouth 2 times a day. Patient to take at 7 AM and at NOON. Lidocaine 5 % External Patch (Lidoderm) Place 1 Patch topically on the skin daily. Diclofenac Sodium 1 % External Gel (Voltaren) Apply 2 g topically to affected area in the morning and 2 g before bedtime. Apply to affected area. Polyethylene Glycol 3350 17 GM/SCOOP Oral Powder (Miralax) Take 17 g by mouth daily as needed for Constipation. Ascorbic Acid (VITAMIN C) 1000 MG Tablet Take 0.5 Tablets by mouth in the morning. No current facility-administered medications for this visit. Current and discharge medications have been reconciled. Review of patient's allergies indicates: Allergen Reactions Neurontin [Gabapentin] Edema Other Attempted x 3 with resultant fatigue and peripheral edema Oxycodone Makes me go crazy Altace [Ramipril] Unknown OBJECTIVE: BP 152/42 | Pulse 60 | Temp 36.8 C (98.2 F) | Wt 62.1 kg (137 lb) | SpO2 92% | BMI 25.06 kg/m| BSA 1.65 m Review Of Systems: Skin: negative Eyes: negative Ears/Nose/Throat: negative Respiratory: (+) see HPI Cardiovascular: negative Gastrointestinal: negative Genitourinary: negative Musculoskeletal: negative Neurologic: negative Psychiatric: negative Hematologic/Lymphatic/Immunologic: negative Endocrine: negative PHYSICAL EXAM: General: elderly female in wheelchair, in NAD Neck: supple, no adenopathy Heart: regular rate & rhythm and (+) murmur Lungs: chest symmetric with normal AP diameter, no chest deformities noted, normal respiratory rateand rhythm, lungs clear to auscultation Abdomen: abdomen soft and non-tender Extremities: no joint deformities, effusion, or inflammation, (+) bilateral LE edema Neuro Exam: alert & oriented x 3 with fluent speech, no focal motor/sensory deficits Skin: skin color, texture, turgor are normal, no rashes or significant lesions ASSESSMENT/PLAN: Hospital discharge follow-up (Primary) - DISCH MED RECON CUR MED LIS Essential hypertension with goal blood pressure less than 140/90 - continue same meds. New scripts sent as she and her son are confused by different instructions on her pill bottles and paperwork. - BASIC METABOLIC PANEL; Future; Expected date: 10/26/2023 - hydrALAZINE HCl 50 MG Oral Tablet (Apresoline); Take 1 Tablet by mouth in the morning and 1 Tablet at noon and 1 Tablet in the evening and 1 Tablet before bedtime. - Torsemide 10 MG Oral Tablet (Demadex); Take 1 Tablet by mouth in the morning. Pulmonary hypertension (HCC) - secondary to heart failure. Will get her back in to see cardiology; missed her prior appointment as she was re-hospitalized. Moderate aortic stenosis Other orders - amLODIPine Besylate 10 MG Oral Tablet (Norvasc); Take 1 Tablet by mouth in the morning. Hyponatremia - sodium 135 before hospital discharge. Recheck today. Follow Up: Return for as scheduled. | For: as scheduled | Check-out note: Needs HD follow up with cardiology - prefers this location if able. Labs today. I spent a total of 30-39 minutes (exact time 37 mins) minutes on the date of service in preparation, delivery, and documentation of the care provided to Georgina Pugh excluding any time spent in performance of separately billed services. Jazzy Appiah DO documented in this encounter Plan of Treatment Upcoming Encounters Date Type Department Care Team (Late st Contact Info) Description 10/29/2023 11:00 AM EDT Home Visit Care Coordination and Integration [address] [facility] [place] [address] Sue Holland, [facility] [address] [place] [address] 11/23/2023 1:00 PM EDT Office Visit Nephrology [address] [place] [address] Nanci Hein MD [address] [place] [address] 12/13/2023 2:30 PM EDT Cardiac Studies Cardiac Studies, [facility] [address] [place] [address] 12/19/2023 1:30 PM EDT Office Visit Cardiology, [address] [place] [address] Shyam Son MD [address] [place] [address] 04/23/2024 3:10 PM EDT Office Visit Family Medicine [address] [place] [phone] [address] [place] [address] Pending Results Name Type Priority Associated Diagnoses Date /Time BASIC METABOLIC PANEL Lab Routine Essential hypertension with goal blood pressure less than 140/90 10/26/2023 12:40 PM EDT Scheduled Orders Name Type Priority Associated Diagnoses Orde r Schedule BASIC METABOLIC PANEL Lab Routine Essential hypertension with goal blood pressure less than 140/90 Expected: 10/26/2023 (Approximate), Expires: 10/25/2024 Health Maintenance Due Date Last Done Comments [...] Additional history exists CKD PHOS USE SMARTSET 62429 10/10/202409/21, 11/22/2022, 11/18/2021, Additional history exists CKD HGB USE SMARTSET 86428 10/11/202410/11, 10/11/2023, 09/14/2023, Additional history exists O2 [...] this encounter Medical Devices Implanted Type Area Agricultural Education Instructor Device Identifier Shelf Expiration Date Model / Serial / Lot Cath Thermodilution 6fr - [id number] Implanted:Qty: 1 on 05/31/2022 by Yoli Rocha MD at [facility] [employer]formerly [employer] SEBASTIAN [id number] 01/30/2024 [id number] / / [id number] Stent Synergy Xd Mr 4.64i67rr - [id number] Implanted:Qty: 1 on 07/27/2022 by Yoli Rocha MD at [facility] [employer] 11/08/2023 [id number] / / [id number] Cath Thermodilution 6fr - [id number] Implanted:Qty: 1 on 10/11/2023 by Shyam Son MD at [facility] HUERTAS [employer]IF[employer]axpanda [employer] SEBASTIAN [id number] 12/28/2024 [id number] / / [id number] documented as of this encounter Visit Diagnoses Diagnosis Hospital discharge follow-up- Primary Other follow-up examination Essential hypertension with goal blood pressure less than 140/90 Pulmonary hypertension (HCC) Other chronic pulmonary heart diseases Moderate aortic stenosis Aortic valve disorders documented in this [...] Relationship Healthcare Agent Relationshi p Communication Francisco Godfreylisseth Adult Child Health Care Repr esentative (appointed verbally by patient or by statute hierarchy) Jasvir Godfreylisseth Adult Child Health Care Repr esentative (appointed verbally by patient or by statute hierarchy) Care Teams Electrolysis Engineer Relationship Specialty Start Date End Date Jazzy Appiah DO [address] [place] [address] [place] [address] PCP - General Internal Medicine 03/12/17 documented as of this encounter
--- OUTSIDE RECORDS SUMMARY | 2023-11-06 06:45 | External Medical Summary | Summary of Care ---
Author Name Unknown Organization [facility] Address 100 [facility] [place] [address] Phone [phone] Care Team Providers Care Lining Sewer Name Role Phone Jazzy Appiah DO Primary Care Provider [phone] Reason for Visit * Reason Comments Outpatient Testing Encounter Details Date Type Department Care Team (Late st Contact Info) Description 10/26/2023 12:40 PM EDT Laboratory Laboratory [address] [place] [phone] [place] [address] SHEA (acute kidney injury) (HCC); Hyponatremia; Vitamin [...] stenosis 10/01/2013 Coronary artery disease invo lving [place] coronary artery of [place] heart without angina pectoris 05/20/2013 Hyperlipidemia with [...] Overview: Signed 08/21/2014 Nazanin Mayfield MD [facility] as backup Anemia 10/01/2013 04/08/2015 COPD, mild [...] Visit Care Coordination and Integration [address] [place] [address] [place] [address] 11/23/2023 1:00 PM EDT Office Visit Nephrology [address] [place] [address] Nanci Hein MD [address] [place] [address] 12/13/2023 2:30 PM EDT Cardiac Studies Cardiac Studies, [facility] [address] [place] [address] 12/19/2023 1:30 PM EDT Office Visit Cardiology, [facility] [address] [place] [address] Shyam Son MD [address] [place] [facility] [place] [address] 04/23/2024 3:10 PM EDT Office Visit Family Medicine [address] [place] [phone] Jazzy Appiah DO [address] [place] [address] [place] [address] Pending Results Name Type Priority Associated Diagnoses Date /Time PTH Lab Routine SHEA (acute kidney injury) (HCC) Hyponatremia 10/26/2023 12:40 PM EDT 25-HYDROXY VITAMIN D Lab Routine SHEA (acute kidney injury) (HCC) Hyponatremia Vitamin D deficiency 10/26/2023 12:40 PM EDT IRON SCREEN, INCLUDING TIBC Lab Routine SHEA (acute kidney injury) (HCC) Hyponatremia 10/26/2023 12:40 PM EDT BASIC METABOLIC [...] Additional history exists CKD PHOS USE SMARTSET 66179 10/10/202409/21, 11/22/2022, 11/18/2021, Additional history exists CKD HGB USE SMARTSET 96634 10/11/202410/11, 10/11/2023, 09/14/2023, Additional history exists O2 [...] this encounter Medical Devices Implanted Type Area Dropper Tank Storage Device Identifier Shelf Expiration Date Model / Serial / Lot Cath Thermodilution 6fr - [id number] Implanted:Qty: 1 on 05/31/2022 by Yoli Rocha MD at [facility] [employer] [id number] 01/30/2024 [id number] / / [id number] Stent Synergy Xd Mr 4.40j74wz - [id number] Implanted:Qty: 1 on 07/27/2022 by Yoli Rocha MD at [facility] [employer]IA Formula E 11/08/2023 [id number] / / [id number] Cath Thermodilution 6fr - [id number] Implanted:Qty: 1 on 10/11/2023 by Shyam Son MD at [facility] HUERTAS [employer] [id number] 12/28/2024 [id number] / / [id number] documented as of this encounter Visit Diagnoses [...] Agents on File Name Relationship Healthcare Agent [facility] p Communication Francisco Pugh Adult Child Health Care Repr esentative (appointed verbally by patient or by statute hierarchy) Jasvir Pugh Adult Child Health Care Repr esentative (appointed verbally by patient or by statute hierarchy) Care Teams Lining Sewer Relationship Specialty Start Date End Date Jazzy Appiah DO [address] [place] [address] [place] [phone] PCP - General Internal Medicine 03/12/17 documented as of this encounter
--- OUTSIDE RECORDS SUMMARY | 2023-11-06 06:45 | External Medical Summary | Summary of Care ---
Author Name Unknown Organization [facility] Address 100 [facility] [place] [address] Phone [phone] Care Team Providers Care Telemarketer Supervisor Name Role Phone Jazzy Appiah DO Primary Care Provider [phone] Reason for Visit * Reason Comments Outpatient Testing Encounter Details Date Type Department Care Team (Late st Contact Info) Description 10/26/2023 12:40 PM EDT Laboratory Laboratory [address] [place] [phone] [place] [address] SHEA (acute kidney injury) (HCC); Hyponatremia; Vitamin [...] stenosis 10/01/2013 Coronary artery disease invo lving [place] coronary artery of [place] heart without angina pectoris 05/20/2013 Hyperlipidemia with [...] 08/21/2014 Overview: Signed 08/21/2014 Nazanin Mayfield MD [facility] as backup [...] Visit Care Coordination and Integration [address] [place] [address] [place] [address] 11/23/2023 1:00 PM EDT Office Visit Nephrology [address] [place] [address] Nanci Hein MD [address] [place] [address] 12/13/2023 2:30 PM EDT Cardiac Studies Cardiac Studies, [facility] 132 [place] [address] 12/19/2023 1:30 PM EDT Office Visit Cardiology, [facility] [address] [place] [address] Shyam Son MD [address] [place] [facility] [place] [address] 04/23/2024 3:10 PM EDT Office Visit Family Medicine [address] [place] [phone] Jazzy Appiah DO [address] [place] [address] [place] [address] Pending Results Name Type Priority Associated Diagnoses [...] Additional history exists CKD PHOS USE SMARTSET 73452 10/10/202409/21, 11/22/2022, 11/18/2021, Additional history exists CKD HGB USE SMARTSET 40314 10/11/202410/11, 10/11/2023, 09/14/2023, Additional history exists O2 [...] this encounter Medical Devices Implanted Type Area Flight Operations Engineer Device Identifier Shelf Expiration Date Model / Serial / Lot Cath Thermodilution 6fr - [id number] Implanted:Qty: 1 on 05/31/2022 by Yoli Rocha MD at [facility] [employer]ings [id number] 01/30/2024 [id number] / / [id number] Stent Synergy Xd Mr 4.96b43ox - [id number] Implanted:Qty: 1 on 07/27/2022 by Yoli Rocha MD at [facility] [employer] 11/08/2023 [id number] / / [id number] Cath Thermodilution 6fr - [id number] Implanted:Qty: 1 on 10/11/2023 by Shyam Son MD at [facility] HUERTAS [employer] [id number] 12/28/2024 [id number] / / [id number] documented as of this encounter Visit Diagnoses [...] Agents on File Name Relationship Healthcare Agent [facility] p Communication Francisco Pugh Adult Child Health Care Repr esentative (appointed verbally by patient or by statute hierarchy) Jasvir Pugh Adult Child Health Care Repr esentative (appointed verbally by patient or by statute hierarchy) Care Teams Telemarketer Supervisor Relationship Specialty Start Date End Date Jazzy Appiah DO [address] [place] [address] [place] [phone] PCP - General Internal Medicine 03/12/17 documented as of this encounter
--- OUTSIDE RECORDS SUMMARY | 2023-11-06 06:45 | External Medical Summary | Summary of Care ---
Author Name Unknown Organization [facility] Address 100 [facility] [place] [address] Phone [phone] Care Team Providers Care Health Sciences Manager Name Role Phone Jazzy Appiah DO Primary Care Provider [phone] Reason for Visit * Reason Comments Outpatient Testing Encounter Details Date Type Department Care Team (Late st Contact Info) Description 10/26/2023 12:40 PM EDT Laboratory Laboratory [address] [place] [phone] [place] [address] SHEA (acute kidney injury) (HCC); Hyponatremia; Vitamin [...] stenosis 10/01/2013 Coronary artery disease invo lving [place] coronary artery of [place] heart without angina pectoris 05/20/2013 Hyperlipidemia with [...] 08/21/2014 Overview: Signed 08/21/2014 Nazanin Mayfield MD [facility] as backup Anemia 10/01/2013 04/08/2015 COPD, mild [...] Visit Care Coordination and Integration [address] [place] [address] [place] [address] 11/23/2023 1:00 PM EDT Office Visit Nephrology [address] [place] [address] Nanci Hein MD [address] [place] [address] 12/13/2023 2:30 PM EDT Cardiac Studies Cardiac Studies, [facility] 132 [place] [address] 12/19/2023 1:30 PM EDT Office Visit Cardiology, [facility] 132 [place] [address] Shyam Son MD [address] [place] [place] [address] 04/23/2024 3:10 PM EDT Office Visit Family Medicine [address] [place] [phone] Jazzy Appiah DO [address] [place] [address] [place] [address] Pending Results Name Type Priority Associated Diagnoses [...] Additional history exists CKD PHOS USE SMARTSET 11455 10/10/202409/21, 11/22/2022, 11/18/2021, Additional history exists CKD HGB USE SMARTSET 15869 10/11/202410/11, 10/11/2023, 09/14/2023, Additional history exists O2 [...] this encounter Medical Devices Implanted Type Area Menswear Salesperson Device Identifier Shelf Expiration Date Model / Serial / Lot Cath Thermodilution 6fr - [id number] Implanted:Qty: 1 on 05/31/2022 by Yoli Rocha MD at [facility] [employer] [id number] 01/30/2024 [id number] / / [id number] Stent Synergy Xd Mr 4.92y38du - [id number] Implanted:Qty: 1 on 07/27/2022 by Yoli Rocha MD at [facility] [employer] 11/08/2023 [id number] / / [id number] Cath Thermodilution 6fr - [id number] Implanted:Qty: 1 on 10/11/2023 by Shyam Son MD at [facility] [employer] [id number] 12/28/2024 [id number] / / [id number] documented as of this encounter Visit Diagnoses [...] Agents on File Name Relationship Healthcare Agent [facility] p Communication Francisco Pugh Adult Child Health Care Repr esentative (appointed verbally by patient or by statute hierarchy) Jasvir Pugh Adult Child Health Care Repr esentative (appointed verbally by patient or by statute hierarchy) Care Teams Health Sciences Manager Relationship Specialty Start Date End Date Jazzy Appiah DO [address] [place] [address] [place] [phone] PCP - General Internal Medicine 03/12/17 documented as of this encounter
--- OUTSIDE RECORDS SUMMARY | 2023-11-06 06:46 | External Medical Summary ---
Author Name Unknown Address Unknown Organization K01:LABORATORY [facility] - [address] [address] Laboratory Report Ordering Provider Test Date Status HOA CALIXTO 10/26/2023 12:40:38 Final Observation Date Value Abnormality Reference (Units ) Status Iron 10/26/2023 12:40:38 44 33-151 (ug/dL) Final Iron-binding capacity 10/26/2023 12:40:38 315 250-425 (ug/dL) Final Transferrin Sat % 10/26/2023 12:40:38 14 Below low normal 15-55 (%) Final Performing Location [facility] - [address] [address]
--- OUTSIDE RECORDS SUMMARY | 2023-11-06 06:46 | External Medical Summary | Summary of Care ---
Author Name Unknown Organization [facility] Address [address] [place] [address] Phone [phone] Care Team Providers Care Measurer Name Role Phone Jazzy Appiah DO Primary Care Provider [phone] Reason for Visit * Reason Onset Date Comments Home Health 10/16/2023 Encounter Details Date Type Department Care Team (Late st Contact Info) Description 10/16/2023 Telephone Family Medicine [address] [phone] Jazzy Appiah DO [address] [place] [address] [place] [address] Home Health Allergies Active Allergy Reactions Criticality Noted Date Comments Ramipril Unknown Low 01/08/2014 Gabapentin Edema Other Medium 03/30/2011 Attempted x 3 with resultant fatigue and peripheral edema Oxycodone 06/09/2019 Makes me go crazy documented as of this encounter (statuses as of 10/19/2023) Medications Medication Sig Dispensed Refills Start Date [...] needed for constipation. 1 Each 1 10/17/2023 documented as of this encounter (statuses as of 10/19/2023) Active Problems Problem Noted Date Diagnosed Date [...] stenosis 10/01/2013 Coronary artery disease invo lving [place] coronary artery of [place] heart without angina pectoris 05/20/2013 Hyperlipidemia with target LDL less than 70 08/23 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 02/28/2012 GENERAL OSTEOARTHROSIS Pulmonary hypertension Hiatal hernia documented as of this encounter (statuses as of 10/19/2023) Resolved Problems Problem Noted Date Diagnosed Date Resolved Date Hypertensive kidney disease with chronic kidney disease stage III 11/04/2018 06/03/2020 Overview: Per CKD protocol Carpal tunnel syndrome of left wrist 11/11/2015 09/18/2017 Tubular adenoma of colon 04/14/2015 Benign esophageal stricture 03/15/2015 09/18/2017 MEDICATION USE AGREEMENT 08/21/2014 Overview: Signed 08/21/2014 Nazanin Mayfield MD [facility] as backup Anemia 10/01/2013 04/08/2015 [...] as of this encounter (statuses as of 10/19/2023) Immunizations Name Administration Dates Next Due COVID-19 mRNA, LNP-s, No Pre serve, 2-Dose Series (ActiveRain) 11/20/2020,10/26/2020 Pneumococcal Conjugate Vacc, 13 Valent (Prevnar) [...] Telephone Encounter - Bonita Martin LPN - 10/19/2023 10:31 AM EDT Faxed to [facility]. * Telephone Encounter - Jazzy Appiah DO - 10/17/2023 1:33 PM EDT Orders printed. * Telephone Encounter - Dinorah Phillips LPN - 10/17/2023 1:02 PM EDT KERON Castillo from [facility] is calling and made aware of the message from PCP. States that nursing can give a soaps harriet enema as long as they have an order. Order will need faxed to [facility] at . Also states that she forgot to request a DME for a bedside commode. Will need this sent to [facility] in [place]. DME pended. Please advise. * Telephone Encounter - Jazzy Appiah DO - 10/16/2023 12:56 PM EDT Can home health nursing give her a soap suds enema? * Telephone Encounter - Samira Slater LPN - 10/16/2023 11:04 AM EDT HH Concerns Anna OT, Calling from: [facility] Report/Concerns of: Constipation Vitals: T 98.2 P 47 ((10/13 - 48, 10/14 - 47)) RR 18 BP 150/48 ((10/13 -150/38, 10/14- 157/51)) SP O2 97% Lung sounds - clear. Denies SOB Weight 135lb - 10/11 during admission Pitting +1 edema bilateral feet (baseline per patient) Narrative: Anna, KERON calling. She is with the patient right now. No bowel movement for 3 days. Patient has tried prune juice, Miralax, stool softener, increased water intake. Lower abdominal pain, passing gas. Patient's doesn't feel like she needs to have a BM. Denies nausea or vomiting. HH nurse did admission over the weekend. PT saw patient yesterday. Nurse seeing the patient again tomorrow. Appt with Dr. Appiah on 10/25. Please advise. Call back [facility] with any advice or orders at [phone] and the patient. Appt with Cardiology - 10/18 - Please review HR and BP documented in this encounter Plan of Treatment Upcoming Encounters Date Type Department Care Team (Late st Contact Info) Description 10/22/2023 1:00 PM EDT Home [facility] [address] Sue Holland [facility] Cow [employer]er [address] [place] [address] [place] [address] 10/26/2023 11:50 AM EDT Office Visit Family Medicine [address] [place] [phone] Jazzy Appiah DO [address] [place] [address] [place] [address] 12/13/2023 2:30 PM EDT Cardiac Studies Cardiac Studies, [facility] [address] [place] [address] 12/19/2023 1:30 PM EDT Office Visit Cardiology, [facility] [address] [place] [address] Shyam Son MD [address] [facility] [place] [address] 04/23/2024 3:10 PM EDT Office Visit Family Medicine [address] [place] [phone] Jazzy Appiah[address] [place] [address] Health Maintenance Due Date Last Done Comments [...] Additional history exists CKD PHOS USE SMARTSET 85292 10/10/202409/21, 11/22/2022, 11/18/2021, Additional history exists CKD HGB USE SMARTSET 13250 10/11/202410/11, 10/11/2023, 09/14/2023, Additional history exists O2 [...] this encounter Medical Devices Implanted Type Area Retail Asset Protection Specialist Device Identifier Shelf Expiration Date Model / Serial / Lot Cath Thermodilution 6fr - [id number] Implanted:Qty: 1 on 05/31/2022 by Yoli Rocha MD at [facility] [place] [employer] [id number] 01/30/2024 [id number] / / [id number] Stent Synergy Xd Mr 4.39k52bb - [id number] Implanted:Qty: 1 on 07/27/2022 by Yoli Rocha MD at [facility] [employer] 11/08/2023 [id number] / / [id number] Cath Thermodilution 6fr - [id number] Implanted:Qty: 1 on 10/11/2023 by Shyam Son MD at [facility] [employer] [id number] 12/28/2024 [id number] / / [id number] documented as of this encounter Visit Diagnoses Diagnosis Constipation, unspecified constipation type- Primary documented in this encounter Advance Directives Latest [...] Name Relationship Healthcare Agent Relationshi p Communication Franciscolashell Pugh Adult Child Health Care Repr esentative (appointed verbally by patient or by statute hierarchy) Jasvir Pugh Adult Child Health Care Repr esentative (appointed verbally by patient or by statute hierarchy) Care Teams Measurer Relationship Specialty Start Date End Date Jazzy Appiah DO [address] [place] [address] [place] [address] PCP - General Internal Medicine 03/12/17 documented as of this encounter
--- OUTSIDE RECORDS SUMMARY | 2023-11-06 06:46 | External Medical Summary ---
Author Name Unknown Address Unknown Organization K01:[facility] [place] [address] [address] Laboratory Report Ordering Provider Test Date Status HOA CALIXTO 10/26/2023 12:40:38 Final Deficient: <20 ng/mL
Ins ufficient: 20-29 ng/mL
Recommended/Optimum:30-50 ng/mL

Vitamin D intoxication is rare. If suspicious of Vitamin D toxicity, evaluation of serum Calcium and PTH is recommended. Observation Date Value Abnormality Reference (Units ) Status 25-OH Vitamin D total 10/26/2023 12:40:38 85 >19 (ng/mL) Final Performing Location LABORATORY [facility] - [address] [address]
--- OUTSIDE RECORDS SUMMARY | 2023-11-06 06:46 | External Medical Summary | Summary of Care ---
Author Name Unknown Organization [facility] Address [address] [facility] [place] [address] Phone [phone] Care Team Providers Care Coarse Wire Drawer Name Role Phone Luis Appiahkatya Felix Primary Care Provider [phone] Encounter Details Date Type Department Care Team (Late st Contact Info) Description 10/22/2023 Orders Only Cardiology, [facility] [address] [place] [address] Pricilla Morse CRNP [address] [place] [address] Allergies Active Allergy Reactions Criticality Noted Date Comments Ramipril Unknown Low 01/08/2014 Gabapentin Edema Other Medium 03/30/2011 Attempted x 3 with resultant fatigue and peripheral edema Oxycodone 06/09/2019 Makes me go crazy documented as of this encounter (statuses as of 10/22/2023) Medications Medication Sig Dispensed Refills Start Date [...] as of this encounter (statuses as of 10/22/2023) Active Problems Problem Noted Date Diagnosed Date [...] stenosis 10/01/2013 Coronary artery disease invo lving [place] coronary artery of [place] heart without angina pectoris 05/20/2013 Hyperlipidemia with target LDL less than 70 08/23 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 02/28/2012 GENERAL OSTEOARTHROSIS Pulmonary hypertension Hiatal hernia documented as of this encounter (statuses as of 10/22/2023) Resolved Problems Problem Noted Date Diagnosed Date Resolved Date Hypertensive kidney disease with chronic kidney disease stage III 11/04/2018 06/03/2020 Overview: Per CKD protocol Carpal tunnel syndrome of left wrist 11/11/2015 09/18/2017 Tubular adenoma of colon 04/14/2015 Benign esophageal stricture 03/15/2015 09/18/2017 MEDICATION USE AGREEMENT 08/21/2014 Overview: Signed 08/21/2014 Nazanin Mayfield MD [facility] as backup Anemia 10/01/2013 04/08/2015 COPD, mild [...] as of this encounter (statuses as of 10/22/2023) Immunizations Name Administration Dates Next Due COVID-19 mRNA, LNP-s, No Pre serve, 2-Dose Series (Ameri-[employer] 3D) 11/20/2020,10/26/2020 Pneumococcal Conjugate Vacc, 13 Valent (Prevnar) [...] Visit Care Coordination and Integration [address] [place] [address] [place] [address] 10/26/2023 11:50 AM EDT Office Visit Family [address] [phone] Jazzy Appiah[address] [place] [address] 12/13/2023 2:30 PM EDT Card[facility] Studies [facility] [place] [address] 12/19/2023 1:30 PM EDT Office Visit [facility]iology, [facility] [address] [facility] [place] [address] Shyam Son MD [address] [place] [address] 04/23/2024 3:10 PM EDT Office Visit Family [address] [phone] Jazzy Appiah [address] [place] [address] Health Maintenance Due Date Last Done Comments [...] Additional history exists CKD PHOS USE SMARTSET 31155 10/10/202409/21, 11/22/2022, 11/18/2021, Additional history exists CKD HGB USE SMARTSET 87959 10/11/202410/11, 10/11/2023, 09/14/2023, Additional history exists O2 [...] this encounter Medical Devices Implanted Type Area Casino Cage Manager Device Identifier Shelf Expiration Date Model / Serial / Lot Cath Thermodilution 6fr - [id number] Implanted:Qty: 1 on 05/31/2022 by Yoil Rocha MD at [facility] [employer]IAN [id number] 01/30/2024 [id number] / / [id number] Stent Synergy Xd Mr 4.13b67mc - [id number] Implanted:Qty: 1 on 07/27/2022 by Yoli Rocha MD at [facility] [employer] 11/08/2023 [id number] / / [id number] Cath Thermodilution 6fr - [id number] Implanted:Qty: 1 on 10/11/2023 by Shyam Son MD at [facility] [employer] SEBASTIAN [id number] 12/28/2024 [id number] / / [id number] documented as of this encounter Procedures Procedure Name Priority Date/Time Associated Diagnosis Comments CHEMISTRY-OUTSIDE Routine 10/18/2023 documented in this encounter Results * (ABNORMAL) CHEMISTRY-OUTSIDE (10/18/2023) Not all results display below - see scan for full detail SCAN INCLUDES: BMP OUTSIDE LAB (SEE SCANNED REPORT) CREATININE-OUTSID E LAB 2.73(A) 0.55 - 1.02 MG/DL OUTSIDE LAB (SEE SCANNED REPORT) EGFR-OUTSIDE LAB 17(A) >60 ML/MIN OUTSIDE LAB (SEE SCANNED REPORT) POTASSIUM-OUTSIDE LAB 5.6(A) 3.5 - 5.1 MMOL/L OUTSIDE LAB (SEE SCANNED REPORT) GLUCOSE-OUTSIDE LAB 143(A) 70 - 110 MG/DL OUTSIDE LAB (SEE SCANNED REPORT) HOURS FASTING OUTSID E LAB (SEE SCANNED REPORT) TRIGLYCERIDES-OUT SIDE LAB OUTSIDE LAB (SEE SCANNED REPORT) CHOLESTEROL-OUTSI DE LAB OUTSIDE LAB (SEE SCANNED REPORT) HDL-OUTSIDE LAB OUTS JESÚS LAB (SEE SCANNED REPORT) CHOL/HDL RATIO-OUTSIDE LAB OUTSIDE LA B (SEE SCANNED REPORT) LDL (CALCULATED)-OUTS JESÚS LAB OUTSIDE LAB (SEE SCANNED REPORT) LDL (DIRECT MEASURE)-OUTSIDE LAB OUTSIDE LAB (SEE SCANNED REPORT) HEMOGLOBIN, Y1W-AKHSZUE LAB OUTSIDE LAB (SEE SCANNED REPORT) PHOSPHORUS-OUTSID E LAB OUTSIDE LAB (SEE SCANNED REPORT) PTH-OUTSIDE LAB OUTS JESÚS LAB (SEE SCANNED REPORT) MICROALBUMIN RATIO-OUTSIDE LAB OUTSIDE LA B (SEE SCANNED REPORT) PROTEIN, UA-OUTSIDE LAB OUTSIDE LAB (SEE SCANNED REPORT) HGB OUTSIDE LA B (SEE SCANNED REPORT) 10/18/2023 Pricilla LOZA LABORATORY OUTSIDE LAB (SEE SCANNED REPORT) documented in this encounter Advance Directives Latest [...] Relationship Healthcare Agent Relationshi p Communication Francisco [facility] Child Health Care Repr esentative (appointed verbally by patient or by statute hierarchy) Jasvir [facility] Child Health Care Repr esentative (appointed verbally by patient or by statute hierarchy) Care Teams Coarse Wire Drawer Relationship Specialty Start Date End Date Jazzy Appiah DO [address] [place] [address] [place] [address] PCP - General Internal Medicine 03/12/17 documented as of this encounter
--- OUTSIDE RECORDS SUMMARY | 2023-11-06 06:46 | External Medical Summary ---
Author Name Unknown Address Unknown Organization K01:LABORATORY [facility] [place] [place] - [facility] [address] [facility] [address] [facility] [address] Laboratory Report Ordering Provider Test Date Status HOA CALIXTO 10/26/2023 12:40:38 Final Observation Date Value Abnormality Reference (Units ) Status BUN 10/26/2023 12:40:38 78 Above high normal 6-20 (mg/dL) Final Creatinine 10/26/2023 12:40:38 2.0 Above high normal 0.5-1.0 (mg/dL) Final Glomerular filtration rate/1.73 sq M.predicted [Volume Rate/Area] in Serum, Plasma or Blood by Creatinine-based formula (CKD-EPI) 10/26/2023 12:40:38 24 Below low normal >=60 (mL/min) Final eGFR is calculated based on the CKD-EPI 2020 equation Sodium 10/26/2023 12:40:38 138 135-146 (m mol/L) Final Potassium 10/26/2023 12:40:38 4.9 3.5-5.1 (m mol/L) Final Cl 10/26/2023 12:40:38 101 98-107 (mm ol/L) Final CO2 10/26/2023 12:40:38 22 22-32 (mmo l/L) Final Anion gap 10/26/2023 12:40:38 15 7-15 (mmol /L) Final Glucose 10/26/2023 12:40:38 97 70-120 (mg /dL) Final Calcium 10/26/2023 12:40:38 9.3 8.4-10.2 ( mg/dL) Final Performing Location LABORATORY [facility] [place] [place] - [address] [place] [address]
--- OUTSIDE RECORDS SUMMARY | 2023-11-06 06:46 | External Medical Summary ---
Author Name Unknown Address Unknown Organization K01:[facility] [place] [address] [address] Laboratory Report Ordering Provider Test Date Status HOA CALIXTO 10/26/2023 12:40:38 Final Observation Date Value Abnormality Reference (Units ) Status Parathyrin.intact [Mass/volume] in Serum or Plasma 10/26/2023 12:40:38 66 Above high normal 15-65 (pg/mL) Final Performing Location [facility] [address] [place] [address]
--- OUTSIDE RECORDS SUMMARY | 2023-11-06 06:46 | External Medical Summary ---
Author Name Unknown Address Unknown Organization K01:LABORATORY [facility] [place] - [address] [address] Laboratory Report Ordering Provider Test Date Status HOA CALIXTO 10/26/2023 15:55:28 Final Normal: <30 mg/g creatinine< br/>High: 30-300 mg/g creatinine
Very High: >300 mg/g creatinine
Nephrotic: >2200 mg/g creatinine Observation Date Value Abnormality Reference (Units ) Status Albumin, Urine 10/26/2023 15:55:28 83.47 (mg/dL) Final Creatinine, Urine 10/26/2023 15:55:28 73 (mg/dL) Final Albumin/Creatinine [Mass Ratio] in Urine 10/26/2023 15:55:28 1143 Above high normal <30 (mg/g Creat) Final Performing Location LABORATORY [facility] - [address] [place] [address]
--- OUTSIDE RECORDS SUMMARY | 2023-11-06 06:46 | External Medical Summary | Summary of Care ---
Author Name Unknown Organization [facility] Address [address] [facility] [place] [address] Phone [phone] Care Team Providers Care Laundry Manager Name Role Phone Jazzy Appiah DO Primary Care Provider [phone] Reason for Visit * Reason Comments Outpatient Testing Encounter Details Date Type Department Care Team (Late st Contact Info) Description 10/26/2023 12:40 PM EDT Laboratory Laboratory [address] [place] [phone] [place] [address] SHEA (acute kidney injury) (HCC); Hyponatremia; Vitamin [...] Overview: Signed 08/21/2014 Nazanin Mayfield MD [facility] [...] Visit Care Coordination and Integration [address] [place] [address] [place] [address] 11/23/2023 1:00 PM EDT Office Visit Nephrology [address] [place] [address] Nanci Hein MD [address] [place] [address] 12/13/2023 2:30 PM EDT Cardiac Studies Cardiac Studies, [facility] [address] [place] [address] 12/19/2023 1:30 PM EDT Office Visit Cardiology, [facility] [address] [place] [address] Shyam Son MD [address] [place] [facility] [place] [address] 04/23/2024 3:10 PM EDT Office Visit Family Medicine [address] [place] [phone] Jazzy Appiah DO [address] [place] [address] [place] [address] Pending Results Name Type Priority Associated Diagnoses Date /Time URINALYSIS WITH MICROSCOPIC EXAM Lab Routine SHEA (acute kidney injury) (HCC) Hyponatremia 10/26/2023 12:40 PM EDT ALBUMIN / CREATININE RATIO, URINE Lab Routine SHEA (acute kidney injury) (HCC) Hyponatremia 10/26/2023 12:40 PM EDT PTH Lab Routine SHEA (acute kidney injury) (HCC) Hyponatremia 10/26/2023 12:40 PM EDT 25-HYDROXY VITAMIN D Lab Routine SHEA (acute kidney injury) ([facility]) Hyponatremia Vitamin D deficiency 10/26/2023 12:40 PM EDT IRON SCREEN, INCLUDING TIBC Lab Routine SHEA (acute kidney injury) ([facility]) Hyponatremia 10/26/2023 12:40 PM EDT BASIC METABOLIC [...] Additional history exists CKD PHOS USE SMARTSET 47919 10/10/202409/21, 11/22/2022, 11/18/2021, Additional history exists CKD HGB USE SMARTSET 56287 10/11/202410/11, 10/11/2023, 09/14/2023, Additional history exists O2 [...] this encounter Medical Devices Implanted Type Area Transferrer Device Identifier Shelf Expiration Date Model / Serial / Lot Cath Thermodilution 6fr - [id number] Implanted:Qty: 1 on 05/31/2022 by Yoli Rocha MD at [facility] [employer] [id number] 01/30/2024 [id number] / / [id number] Stent Synergy Xd Mr 4.49k79cn - [id number] Implanted:Qty: 1 on 07/27/2022 by Yoli Rocha MD at [facility] [employer] 11/08/2023 [id number] / / [id number] Cath Thermodilution 6fr - [id number] Implanted:Qty: 1 on 10/11/2023 by Shyam Son MD at [facility] [place] [employer] [id number] 12/28/2024 [id number] / / [id number] documented as of this encounter Visit Diagnoses [...] patient or by statute hierarchy) Care Teams Laundry Manager Relationship Specialty Start Date End Date Jazzy Appiah DO [address] [place] [address] [place] [address] PCP - General Internal Medicine 03/12/17 documented as of this encounter
--- OUTSIDE RECORDS SUMMARY | 2023-11-06 06:47 | External Medical Summary | Summary of Care ---
Author Name Unknown Organization [facility] Address [address] [facility] [place] [address] Phone [phone] Care Team Providers Care Lead Manufacturing Engineer Name Role Phone AppiahJazzy bonds Primary Care Provider [phone] Reason for Visit * Reason Onset Date Comments Advice 10/18/2023 Encounter Details Date Type Department Care Team (Late st Contact Info) Description 10/18/2023 Telephone Cardiology, [facility] [address] [place] [phone] Chris Schwartz MD [address] [place] [id number] Advice Allergies Active Allergy Reactions Criticality Noted [...] stenosis 10/01/2013 Coronary artery disease invo lving [place] coronary artery of [place] heart without angina pectoris 05/20/2013 Hyperlipidemia with [...] Mayfield MD [facility] as backup Anemia [...] mRNA, LNP-s, No Pre serve, 2-Dose Series (Operax) 11/20/2020,10/26/2020 Pneumococcal Conjugate Vacc, 13 Valent (Prevnar) [...] encounter Miscellaneous Notes * Telephone Encounter - Chris Schwartz MD - 10/18/2023 7:57 PM EDT call manager Cardiology contacted by Home Health with abnormal labs Na 123, K 5.6, CL 94, CO2 25, BUN 100, Cr 2.7 Significant decline in renal functio Recent hospitalizations , med adjustments and cardiac cath with angiography. No acute complaints per patient, weak and still full of fluid. Recommended ER and inpatient assessment, management. Patient arranging transportation documented in this encounter Plan of Treatment Upcoming Encounters Date Type Department Care Team (Late st Contact Info) Description 10/19/2023 10:30 AM EDT Office Visit Cardiology, [facility] [address] [facility] [place] [phone] Pricilla Morse CRNP [address] [facility] [place] [id number] 10/22/2023 1:00 PM EDT Home Visit Care Coordination and Integration [address] [place] [address] Muriel Concepcion [facility] [employer] [address] [place] [address] 10/26/2023 11:50 AM EDT Office Visit Family Medicine [address] [place] [phone] Jazzy Appiah [address] [place] [address] 12/13/2023 2:30 PM EDT Cardiac Studies Cardiac Studies, [facility] [address] [place] [address] 12/19/2023 1:30 PM EDT Office Visit Cardiology, [facility] [address] [place] [phone] Shyam Son MD [address] [facility] [place] [id number] 04/23/2024 3:10 PM EDT Office Visit [address] [place] [id number] [place] [address] Health Maintenance Due Date Last Done Comments [...] Additional history exists CKD PHOS USE SMARTSET 25713 10/10/202409/21, 11/22/2022, 11/18/2021, Additional history exists CKD HGB USE SMARTSET 33491 10/11/202410/11, 10/11/2023, 09/14/2023, Additional history exists O2 [...] this encounter Medical Devices Implanted Type Area Fixed Route Operator Device Identifier Shelf Expiration Date Model / Serial / Lot Cath Thermodilution 6fr - [id number] Implanted:Qty: 1 on 05/31/2022 by Yoli Rocha MD at [facility] [employer] [id number] 01/30/2024 [id number] / / [id number] Stent Synergy Xd Mr [id number] - [id number] Implanted:Qty: 1 on 07/27/2022 by Yoli Rocha MD at [email or web address] 11/08/2023 [id number] / / [id number] Cath Thermodilution 6fr - [id number] Implanted:Qty: 1 on 10/11/2023 by Shyam Son MD at [facility] [employer] [id number] 12/28/2024 [id number] / / [id number] documented as of this encounter Advance Directives [...] patient or by statute hierarchy) Care Teams Lead Manufacturing Engineer Relationship Specialty Start Date End Date Jazzy Appiah DO [address] [place] [address] HOME [place] [phone] PCP - General Internal Medicine 03/12/17 documented as of this encounter
--- NOTE | 2023-11-06 07:50 | Cardiology Consultation ---
Date of Consultation November 06, 2023 Assessment & Plan (1) Insomnia: (2) Chronic heart failure with preserved ejection fraction (HFpEF): (3) Aortic stenosis: (4) Coronary artery disease: (5) Elevated troponin: (6) Hypertension: Plan IMPRESSION: Medically complex 78 year old female with complex valvular heart disease, CAD (PCI to 07/2022), and diastolic CHF. Admitted due to 5 nights of insomnia resulting in generalized weakness and fatigue. Symptomatic improvement with IV Ativan last evening. PLAN: Insomnia: -Seems like this is her main concern at this time. -Treatment per primary service-- anxiety likely playing a role. -Symptom improvement with IV Ativan Chronic HFpEF: -Euvolemic on exam, Continue torsemide 10 mg PO daily Aortic stenosis: -Moderate as per recent echocardiogram and cardiac cath -Recommend avoiding LINDEN-I/ARB medications --these are not generally recommended in the setting of aortic stenosis. -Plans to follow up with valve clinic (Dr. Son) in November. CAD/Elevated troponin: -Status post PCI to the , 07/27/2022-- stable, no angina. -Patient with chronic elevation. No acute EKG changes to suggest ischemia -CKD contributing factor. -Continue ASA 81 mg daily and Statin as ordered HTN: -Patient did not yet get AM medications. Continue multidrug regimen of Norvasc 10 mg daily, Isordil 20 mg BID, and Hydralazine 50 mg QID. Will titrate as apropriate. -Avoiding LINDEN/ARB due to renal function and . -Avoiding Beta torrie due to prior bradycardia Case discussed with Dr. Schwartz. Further recommendations pending assessment. I spent a total of 40 minutes on the date of service in preparation, delivery, and documentation of the care provided to the patient excluding any time spent in the performance of separately billed services. DENIA Pino Department of Cardiology, [facility] This chart was completed in part utilizing Speech Voice Recognition Software. Grammatical errors, random word insertions, pronoun errors, and incomplete sentences are an occasional consequence of this system due to software limitations, ambient noise, and hardware issues. Any formal questions or concerns about the content, text, or information contained within the body of this dictation should be directly addressed to the provider for clarification. Supervising Physician Co-Signing Physician Notes Patient was seen and personally examined. Full assessment and plan as outlined by advanced provider as above. Care discussed and endorsed. 78-year-old female with complex cardiac disease presents predominant with complaints of insomnia and difficulty sleeping at night multifactorial No specific cardiac complaints Did feel better with oxygen administration with possible component of mild orthopnea. Chest x-ray without overt pulmonary edema though possible small effusion. Do not suspect acute cardiac decline Would benefit from slight increase in diuretic dosing Increase torsemide to 20 mg Sunday 10 mg all other days. Assess for need for oxygen nocturnally History of Present Illness Reason for Consultation: Elevated troponin Requesting Physician: [place] [facility] Attending Physician: Rochelle Herrera MD History of Present Illness Medically complex 78-year-old female presented to [facility] emergency department last evening due to symptoms of weakness and fatigue. Notes insomnia x5 nights as well as headaches when lying down. Feels anxious at bedtime and unable to sleep. Outpatient sleeping medications did not help her. Patient carries a history of mixed valvular heart disease including moderate to severe aortic stenosis, mitral regurgitation and mitral stenosis. Has had multiple hospitalizations in the last month or so. Most recently patient presented to [facility] emergency department mid September due to chest pain and shortness of breath. He was having headaches, nausea and diarrhea. SHEA noted on blood work as well as hyponatremia of 123. Blood pressures were hypotensive. Diuretics were held and patient was hydrated with IV fluids. Once she was stable from a renal/electrolyte standpoint she was transferred to [facility] on 10/11/2023. She underwent left and right heart catheterization that showed mild coronary disease, moderate aortic stenosis and severely elevated right heart pressures indicative of worsening pulmonary hypertension. There was no intervention that could be made as the pulmonary hypertension was felt to be secondary to heart dysfunction. She was medically optimized for heart failure. Georgina was found to be hyponatremic on presentation and was fluid restricted however remained hyponatremic. During admission she had controlled blood pressures in her heart rates were bradycardic in the 50s but she was asymptomatic. Represented to [facility] emergency department on 10/19/2023 due to worsening renal function, SHEA on CKD and hyponatremia. Antihypertensives were adjusted inpatient--amlodipine 10 mg, Isosorbide dinitrate 20 BID, hydralazine 50 QID, and torsemide 10 mg daily continued. Coreg discontinued due to bradycardia. Losartan discontinued due to SHEA and aortic stenosis. Nephrology on board. 11/06/2023: Upon entrance into the room patient resting in the chair getting cleaned up. Notes that she is feeling better this morning, but still wore out. Got 5 hours of sleep last night after receiving IV Ativan-- States that normally she "cant shut her mind off" and this medication helped her. She is without cardiovascular complaints. No chest pain or dyspnea. No orthopnea or PND. No lower extremity edema. Denies palpitations or lightheadedness. Head aches resolved this am. Asking for breakfast. Telemetry: SR with PVCs 70-80s I/O: -115 mL Weight: 62.6 kg Labs: Ongoing anemia with a hemoglobin of 8.8. Renal function stable. Sodium within normal limits. Potassium stable. Mag low, 1.6. High-sensitivity troponins elevated but flat (176>>163>>181), similar results to prior admissions. 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 Gonzáles Past medical history: 1.Coronary artery disease, status post PCI to the LM, 07/27/2022 2.Severe aortic stenosis, discordant date on echo a.Moderate per cath, 04/2022 b.Repeat cath remains moderate 3.Mitral regurgitation and stenosis 4.Chronic diastolic CHF a. Moderate Pulm HTN 5.Hypertension 6.Hyperlipidemia 7.Carotid artery stenosis, 50-69% bilaterally, follows with vascular 8.Peripheral vascular disease 9. CKD stage 3 with hyponatremia 10. Chawla's esophagus 11. Esophageal stricture Allergies Allergy/AdvReac Type Severity Reaction Status Date / Time gabapentin AdvReac Intermediate cough Verified 11/05/23 19:27 oxycodone AdvReac Intermediate "makes me Verified 11/05/23 19:27 go crazy" ramipril AdvReac Intermediate cough Verified 11/05/23 19:27 Home Medications Medication Instructions Recorded Confirmed Type aspirin 81 mg tablet,delayed 81 mg PO DAILY 10/19/23 11/05/23 History release atorvastatin 20 mg tablet 20 mg PO DAILY 10/19/23 11/05/23 History hydrocodone 10 mg-acetaminophen 1 tab PO BID PRN Severe Pain 10/19/23 11/05/23 History 325 mg tablet (Scale Score 7-10) omeprazole 20 mg capsule,delayed 20 mg PO DAILY 10/19/23 11/05/23 History release diclofenac sodium 1 % topical gel 2 g EXT BID #50 grams 10/22/23 11/05/23 Rx (Voltaren Arthritis Pain) hydralazine 50 mg tablet 50 mg PO QID #120 tabs 10/22/23 11/05/23 Rx isosorbide dinitrate 20 mg tablet 20 mg PO BID@0700,1200 #60 tabs 10/22/23 11/05/23 Rx torsemide 10 mg tablet 10 mg PO DAILY #1 tab 10/22/23 11/05/23 Rx acetaminophen 650 mg 650 mg PO Q8H PRN Pain 11/05/23 11/05/23 History tablet,extended release amlodipine 10 mg tablet 10 mg PO QAM 11/05/23 11/05/23 History ascorbic acid (vitamin C) 1,000 mg 500 mg PO Q OTHER DAY 11/05/23 11/05/23 History tablet (Vitamin C) cholecalciferol (vitamin D3) 25 25 mcg PO DAILY 11/05/23 11/05/23 History mcg (1,000 unit) capsule (Vitamin D3) cranberry concentrate-ascorbic 4 cap PO DAILY 11/05/23 11/05/23 History acid 140 mg-100 mg capsule (Cranberry Plus Vitamin C) cyanocobalamin (vitamin B-12) 1,000 mcg PO Q OTHER DAY 11/05/23 11/05/23 History 1,000 mcg tablet (Vitamin B-12) docusate sodium 100 mg capsule 100 - 200 mg PO DAILY PRN 11/05/23 11/05/23 History Constipation nitroglycerin 0.3 mg sublingual 0.3 mg sublingual DIRECTED PRN 11/05/23 11/05/23 History tablet (Nitrostat) Chest Pain pediatric multivitamin 1 tab PO 2XWK 11/05/23 11/05/23 History no.226-ferrous sulfate 18 mg chewable tablet (Flintstones with Extra Iron) polyethylene glycol 3350 17 17 g PO DAILY PRN Constipation 11/05/23 11/05/23 History gram/dose oral powder (Miralax) pyridoxine (vitamin B6) 50 mg 50 mg PO DAILY 11/05/23 11/05/23 History tablet (Vitamin B-6) ramelteon 8 mg tablet 8 mg PO HS 11/05/23 11/05/23 History vitamin E 670 mg (1,000 unit) 670 mg PO DAILY 11/05/23 11/05/23 History capsule Patient History Medical History (Updated 11/06/23 @ 09:08 by DENIA Nichols) CKD (chronic kidney disease) stage 4, GFR 15-29 ml/min Chronic heart failure with preserved ejection fraction (HFpEF) Myalgia Generalized weakness Acute exacerbation of congestive heart failure COVID Hypertensive crisis Chronic sialoadenitis Poor historian Chronic back pain Osteoarthritis History of esophageal dilatation GERD (gastroesophageal reflux disease) Leaky heart valve per pt aorta--follows with Dr. Gonzáles Hypertension Hyperlipidemia Cardiac murmur Esophageal motility disorder "noted on barium swallow 10/2014" Chawla's esophagus Aortic stenosis "moderately severe by echo September 2013" Coronary artery disease LM PCI 07/27/2022 Surgical History History of colonoscopy History of umbilical hernia repair History of cardiac cath x3--last 12/2018 no stents History of hysterectomy History of lumpectomy cant remember which breast---benign fatty tissue History of bilateral tubal ligation History of carpal tunnel release of both wrists History of lumbar spinal fusion History of total left knee replacement (TKR) History of appendectomy History of cholecystectomy History of esophagogastroduodenoscopy (EGD) History of tooth extraction History of tonsillectomy History of sinus surgery Family History Other No family history of adverse response to anesthesia No family history of bleeding disorder Social History Smoking Status: Former smoker Tobacco Type: Cigarettes Smoking End Date: 40 years ago; Second Hand Exposure: No; Do You Dip or Chew Tobacco: No; Hx Alcohol Use: No Hx Substance Use: No Preferred Language: Nigerian Communication Ability: Effective A&P Technician Required: No Beliefs That Will Affect Care: Temple Temple Beliefs: 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 Sons help daily. Other Information That Helps Us Care for You: No Feels Safe at Home: Yes Safety Concerns: Feels Safe At This Time Assistive Devices: Cane, Walker and Wheelchair Review of Systems Review of Systems: All systems reviewed & are unremarkable except as noted in HPI & below Physical Exam Constitutional: well nourished; no acute distress Neck: normal visual inspection and trachea midline Respiratory: normal respiratory effort; no respiratory distress, no labored breathing, no cough and not tachypneic Auscultation: lungs clear to auscultation bilaterally; no crackles, no rales, no rhonchi and no wheezes Cardiovascular: Rate/Rhythm: + bradycardic Heart Sounds: normal S1, normal S2 and + murmur (2/6 systolic ) Vessels: dorsalis pedis pulses present; no JVD Extremities: no edema Skin: no rashes, warm and dry Psychiatric: A+Ox3, euthymic affect Results & Data Vital Signs (Past 12 Hours) Vital Signs Temp Pulse Pulse Resp BP BP BP 11/06/23 07:26 36.8 C 75 18 155/57 H 11/06/23 02:46 37.3 C 84 18 156/60 H 11/05/23 22:45 89 11/05/23 22:45 11/05/23 22:45 36.7 C 85 18 178/64 H 11/05/23 22:13 90 11/05/23 22:00 85 24 11/05/23 22:00 85 24 171/77 H 11/05/23 21:30 23 166/68 H 11/05/23 21:30 86 23 11/05/23 21:00 79 20 167/62 H 11/05/23 21:00 79 20 11/05/23 20:30 86 15 11/05/23 20:30 86 15 171/62 H 11/05/23 20:20 84 20 11/05/23 20:10 87 14 11/05/23 20:00 89 21 163/64 H 11/05/23 20:00 89 21 11/05/23 19:50 86 19 11/05/23 19:40 88 20 Pulse Ox O2 Del Method O2 Flow Rate 11/06/23 07:26 98 Nasal Cannula 5 11/06/23 02:46 97 Nasal Cannula 5.0 11/05/23 22:45 11/05/23 22:45 Nasal Cannula 3 11/05/23 22:45 97 Nasal Cannula 3 11/05/23 22:13 11/05/23 22:00 89 L 11/05/23 22:00 89 L Room Air 11/05/23 21:30 91 Room Air 11/05/23 21:30 91 11/05/23 21:00 90 11/05/23 21:00 90 11/05/23 20:30 91 11/05/23 20:30 91 Room Air 11/05/23 20:20 93 11/05/23 20:10 95 11/05/23 20:00 92 Room Air 11/05/23 20:00 92 11/05/23 19:50 93 11/05/23 19:40 91 Laboratory Results Cardiac Enzymes 11/05/23 11/05/23 11/06/23 Range/Units 18:00 21:22 05:25 AST 29 (13-39) U/L Troponin I High Sens 176.8 H* 163.5 H* 181.5 H* (0-14) pg/ml CBC 11/05/23 11/06/23 Range/Units 18:00 05:25 WBC 6.57 5.68 (4.8-10.8) K/ul RBC 3.24 L 3.01 L (4.20-5.40) M/uL Hgb 9.5 L 8.8 L (12.0-16.0) g/dl Hct 28.4 L 26.6 L (37.0-47.0) % Plt Count 305 285 (130-400) K/uL Neut # (Auto) 4.93 3.79 (1.40-6.50) K/uL Lymph # (Auto) 0.59 L 0.71 L (1.20-3.40) K/uL [place] # (Auto) 0.61 H 0.64 H (0.11-0.59) K/uL Eos # (Auto) 0.36 0.43 (0.00-0.50) K/uL Baso # (Auto) 0.07 0.09 (0.00-0.20) K/uL Comprehensive Metabolic Panel 11/05/23 11/06/23 Range/Units 18:00 05:25 Sodium 135 L 137 (136-145) mmol/L Potassium 4.1 4.1 (3.5-5.1) mmol/L Chloride 102 106 (98-107) mmol/L Carbon Dioxide 21 22 (21-32) mmol/L BUN 47 H 45 H (6-23) mg/dl Creatinine 1.71 H 1.67 H (0.6-1.2) mg/dl Glucose 121 H 88 (70-99(Fasting)) mg/dl Calcium 9.8 9.3 (8.6-10.3) mg/dl AST 29 (13-39) U/L ALT 12 (7-52) U/L Alkaline Phosphatase 74 (34-104) U/L Total Protein 7.7 (6.0-8.3) gm/dl Albumin 4.0 (3.4-5.0) gm/dl Intake and Output 11/05/23 11/06/23 11/06/23 22:59 06:59 14:59 Intake Total 85 / 85 Output Total 200 / 200 Balance -200 / -200 Intake: IV Magnesium Sulfate / D5w 1 gm In 100 ml @ 50 mls/hr IV Q2H MELLISA Rx#:[id number] Output: Urine 200 / 200 Other: Other Intake Source NPO # Unmeasured Voids 1 Weight 62.1 kg 62.6 kg Weight Measurement Method Built in [facility] Built in [facility] (1) Insomnia Insomnia type: unspecified Qualified Code(s): G47.00 - Insomnia, unspecified (4) Coronary artery disease Associated angina: with unspecified form of angina Coronary Disease- Associated Artery/Lesion type: [place] artery [place] vs. transplanted heart: [place] heart Qualified Code(s): I25.119 - Atherosclerotic heart disease of [place] coronary artery with unspecified angina pectoris (6) Hypertension Hypertension type: primary hypertension Qualified Code(s): I10 - Essential (primary) hypertension
[2023-11-06] MEDS: PANTOprazole 40 MG TAB PO SCH (10:06)
[2023-11-06] MEDS: ASCORBIC ACID 500 MG TAB PO SCH (10:06)
[2023-11-06] MEDS: TOCOPHERYL, DL-ALPHA 400 UNITS 180 MG CAP PO SCH (10:06)
[2023-11-06] MEDS: PYRIDOXINE HCL 50 MG TAB PO SCH (10:07)
[2023-11-06] MEDS: hydrALAZINE TAB 50 MG TAB PO SCH (10:07)
[2023-11-06] MEDS: MULTIVITAMIN CHEWABLE TAB PO SCH (10:08)
[2023-11-06] MEDS: TORSEMIDE 10 MG TAB PO SCH (10:08)
[2023-11-06] MEDS: CYANOCOBALAMIN (B-12) 500 MCG TABLET PO SCH (10:08)
[2023-11-06] MEDS: ATORVASTATIN 20 MG TAB PO SCH (10:08)
[2023-11-06] MEDS: CHOLECALCIFEROL 25 MCG (1000 UNITS) TAB PO SCH (10:09)
[2023-11-06] MEDS: amLODIPine BESYLATE 5 MG TAB PO SCH (10:09)
[2023-11-06] MEDS: ASPIRIN 81 MG ECTAB PO SCH (10:09)
[2023-11-06] MEDS: DICLOFENAC SOD 1% GEL 100 GM TUBE EXT SCH (10:10)
[2023-11-06] MEDS: TOCOPHERYL, DL-ALPHA 100 UNITS 67 MG CAP PO SCH (10:10)
--- NOTE | 2023-11-06 13:26 | Electrocardiogram Report ---
Test Reason : Blood Pressure : / mmHG Vent. Rate : 078 BPM Atrial Rate : 078 BPM P-R Int : 176 ms QRS Dur : 124 ms QT Int : 404 ms P-R-T Axes : 000 -02 133 degrees QTc Int : 460 ms Sinus rhythm with Premature atrial complexes Left ventricular hypertrophy with QRS widening and repolarization abnormality Cannot rule out Anteroseptal infarct , age undetermined Abnormal ECG When compared with ECG of 21-OCT-2023 21:36, Premature atrial complexes are now Present TN interval has decreased Minimal criteria for Anteroseptal infarct are now Present T wave inversion more evident in Lateral leads Confirmed by Philipp Shannon ([id number]) on 11/06/2023 1:26:08 PM Referred By: REFERRED SELF Confirmed By:Wander Shannon
--- NOTE | 2023-11-06 13:31 | Electrocardiogram Report ---
Test Reason : Blood Pressure : / mmHG Vent. Rate : 076 BPM Atrial Rate : 277 BPM P-R Int : 000 ms QRS Dur : 124 ms QT Int : 398 ms P-R-T Axes : 000 -27 118 degrees QTc Int : 447 ms Normal sinus rhythm Left ventricular hypertrophy with QRS widening and repolarization abnormality Abnormal ECG Confirmed by Philipp Shannon ([id number]) on 11/06/2023 1:30:44 PM Referred By: REFERRED SELF Confirmed By:Wander Shannon
--- NOTE | 2023-11-06 15:49 | Hospitalist Progress Note ---
Date of Service November 06, 2023 Assessment & Plan (1) Insomnia: Plan: 78-year-old female with past medical history significant for hyperlipidemia, COPD, peripheral artery disease, chronic diastolic CHF, pulmonary hypertension, history of CAD s/p left main stent, moderate to severe aortic valve stenosis, hypertension, carotid stenosis bilateral, 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 Because of weakness she is not able to ambulate much. Appetite is down. Having some headaches when she is lying down. Have some sore throat. Denies any fevers. No cough. No chest pain. Has some shortness of breath on exertion. No nausea. No abdominal pain. Normal bowel and bladder movements. Patient recently had right and left heart catheterization at [facility] which showed mild coronary disease , moderate aortic stenosis and severely elevated right heart pressures , left main coronary stent was patent. Mild to moderate diffuse RCA disease noted and mild LAD disease and mild proximal left circumflex disease. Patient was again recently admitted to [facility] on 10/18/23 because of SHEA and hyponatremia and placed on fluid restriction 1.5 L a day and also her blood pressure medications were adjusted per cardiology and discharged on 2023. Patient states since last for 4/5 days she is not able to sleep at all. Asking to help her sleep. Feeling tired because of that. Hemodynamics are okay. [facility] Will give melatonin for sleep at night Elevated troponin Hx of CAD s/p stents History of elevated troponin chronically Denies any chest pain and or palpitation with it and no significant EKG changes Does not support ACS Appreciate cardiology input and recommendation Chronic heart failure with preserved EF Moderate Pul.HTN on torsemide Echo of the heart showed-LV is normal in size, there is moderate concentric left ventricular hypertrophy, focal thickening of the basal septum with no evidence of left ventricular outflow obstruction, left ventricular wall motion is normal, LVEF is 55 to 60%, left atrium is severely dilated, aortic valve leaflets are calcified and restricted in body mobility, moderate to severe valvular aortic stenosis, there is moderate to severe mitral valvular calcification, there is trace mitral regurgitation, there is trace tricuspid regurgitation, right ventricular systolic pressure is elevated to 40 to 50 mmHg and there is a small circumferential pericardial effusion not hemodynamically significant. Appreciate cardiology input and recommendation Will increase torsemide to 20 mg on Sunday and Sunday and 10 mg on other days Chronic back pain headache-mostly occipital without any other neurological symptoms home meds patient declined ct head for difficulty lying flat because of curvature of her spine. Will continue with Tylenol Apply diclofenac cream HTN last admit coreq was stopped because of bradycardia isosorbide dinitrate was added, hydralazine and amlodipine dose increased losartan was stopped Blood pressure remains mildly elevated on 149/53 Hyponatremia sodium 135 Was discharged on fluid restriction 1500ml/day and torsemide 10mg daily Sodium level remains normal at 137 CKD 3-4 cr 1.7 seems around baseline Creatinine has been little improved at 45/1.67 Chronic anemia Presented presented with hemoglobin 9.5 around baseline Will follow GERD Hiatal hernia History of esophageal strictures, esophageal dysmotility disorder On PPI Will monitor Weakness PT OT when stable DVT prophylaxis SCDs for now Disposition Telemetry Full code Admission and Anticipated Discharge Date Admission Date: November 05, 2023 Subjective 11/06/2023 The patient was seen and examined in telemetry unit in presence of the son She came in with profound weakness and some back pain Has history of aortic stenosis but did not have any chest pain Review of Systems Review of Systems: All systems reviewed and are unremarkable except as noted below Physical Exam Physical Exam: Sitting on a chair without any acute distress Constitutional: + ill appearing and average body habitus Eyes: PERRL, conjunctivae normal, anicteric sclerae ENMT: external ear and nose normal, oropharynx normal Neck: trachea midline, no thyromegaly Respiratory: + respiratory distress (Minimal respirat ory distress) Auscultation: + diminished lung sounds and + crackles (Minimal bibasilar crackles) Cardiovascular: Rate/Rhythm: regular rate and regular rhythm; not tachycardic Heart Sounds: normal S1, normal S2 and + murmur (2-3/6 over precordium and aortic area) Extremities: + edema (1+ edema bilateral) Gastrointestinal (Abdomen): Inspection/Auscultation: normal bowel sounds; abdomen not distended Percussion/Palpation: abdomen soft; abdomen nontender Musculoskeletal: No acute arthritis involving any of the joint Neurologic: Alert, awake and oriented x 3. No focal sensory or no motor deficit appreciated but she is extremely weak Lymphatic: no cervical or axillary lymphadenopathy Results & Data Results & Data Vital Signs (Past 12 Hours) Vital Signs Temp Pulse Resp BP Pulse Ox O2 Del Method O2 Flow Rate 11/06/23 15:12 37.1 C 97 H 18 149/53 H 97 Nasal Cannula 2 11/06/23 11:25 36.7 C 75 18 158/55 H 98 Nasal Cannula 2 11/06/23 11:20 Nasal Cannula 2 11/06/23 07:26 36.8 C 75 18 155/57 H 98 Nasal Cannula 5 (1) Insomnia Insomnia type: unspecified Qualified Code(s): G47.00 - Insomnia, unspecified
[2023-11-06] MEDS: LORazepam 0.5 MG TAB PO STA (19:45)
[2023-11-06] MEDS: LORazepam 0.25 MG in SYRINGE 0.125 ML IV STA (20:06)
[2023-11-06] MEDS: NITROGLYCERIN SL 0.4 MG/TAB TAB SL PRN (23:29)
[2023-11-06] MEDS ORDERED: SODIUM CHLORIDE 0.65% NA SOLN 45 ML (OCEAN) PRN (23:55)
[2023-11-07 06:47] LABS: BUN Creatinine Ratio 25.4 (10-20); Calcium 9.5 mg/dl (8.6-10.3); Creatinine Clr Calc Pharmacy 19.2 ml/min; Est GFR (African American) 27.8 ml/min; Magnesium 2.1 mg/dl (1.7-2.4); Phosphorus 4.5 mg/dl (2.5-4.9); Potassium 4.6 mmol/L (3.5-5.1)
--- NOTE | 2023-11-07 07:08 | Cardiology Progress Note ---
Date of Service November 07, 2023 Assessment & Plan (1) Insomnia: (2) Chronic heart failure with preserved ejection fraction (HFpEF): (3) Aortic stenosis: (4) Coronary artery disease: (5) Elevated troponin: (6) Hypertension: Plan IMPRESSION: Medically complex 78 year old female with complex valvular heart disease, CAD (PCI to 07/2022), and diastolic CHF. Admitted due to 5 nights of insomnia resulting in generalized weakness and fatigue. Symptomatic improvement with IV Ativan last evening. PLAN: Insomnia: -Seems like this is her main concern at this time. -Treatment per primary service-- anxiety likely playing a role. -Symptom improvement with IV Ativan -Recommend nocturnal pulse oximetry study prior to discharge. If testing abnormal will need to consider outpatient formal sleep study. Chronic HFpEF: -Mildly hypervolemic on exam, torsemide increased to 20 mg daily MWF and 10 mg daily all other days, continue. -Mild orthopnea and gas pains/heart burn since eating acidic foods last evening-- will defer to primary service. Aortic stenosis: -Moderate as per recent echocardiogram and cardiac cath -Recommend avoiding LINDEN-I/ARB medications --these are not generally recommended in the setting of aortic stenosis. -Plans to follow up with valve clinic (Dr. Son) in November. CAD/Elevated troponin: -Status post PCI to the , 07/27/2022-- stable, no angina. -Patient with chronic elevation. No acute EKG changes to suggest ischemia -CKD contributing factor. -Continue ASA 81 mg daily and Statin as ordered HTN: -Patient did not yet get AM medications. Continue multidrug regimen of Norvasc 10 mg daily, Isordil 20 mg BID, and Hydralazine 50 mg QID. Will titrate as appropriate. -Avoiding LINDEN/ARB due to renal function and . -Avoiding Beta torrie due to prior bradycardia Case discussed with Dr. Schwartz. Further recommendations pending assessment. I spent a total of 30 minutes on the date of service in preparation, delivery, and documentation of the care provided to the patient excluding any time spent in the performance of separately billed services. DENIA Pino Department of Cardiology, [facility] This chart was completed in part utilizing Speech Voice Recognition Software. Grammatical errors, random word insertions, pronoun errors, and incomplete sentences are an occasional consequence of this system due to software limitations, ambient noise, and hardware issues. Any formal questions or concerns about the content, text, or information contained within the body of this dictation should be directly addressed to the provider for clarification. Admission and Anticipated Discharge Date Admission Date: November 05, 2023 Supervising Physician Co-Signing Physician Notes Patient was seen and personally examined. Multitude of complaints including persistent insomnia, fatigue dyspnea poor p.o. intake/anorexia and constipation in addition to back pain and discomfort Trace pedal edema Renal function demonstrates slight uptick in creatinine today Will hold a.m. torsemide Subjective Medically complex 78 year old female with complex valvular heart disease, CAD (PCI to LM 07/2022), and diastolic CHF. Admitted due to 5 nights of insomnia resulting in generalized weakness and fatigue. Symptomatic improvement with IV Ativan last evening. 11/06/2023: Symptomatic improvement in fatigue with the use of IV Ativan overnight Possible small effusion on chest x-ray with mild orthopnea. Torsemide increased to 20 mg every Sunday and 10 mg all other days. 11/07/2023: Upon entrance into the room patient resting in the chair getting cleaned up. Notes that she is feeling better this morning, but still wore out. Got 5 hours of sleep last night after receiving IV Ativan-- States that normally she "cant shut her mind off" and this medication helped her. She is without cardiovascular complaints. No chest pain or dyspnea. No orthopnea or PND. No lower extremity edema. Denies palpitations or lightheadedness. Head aches resolved this am. Asking for breakfast. Telemetry: SR with PVCs 70-80s I/O: +235 mL Weight: 62.6 kg >> 61.3 kg Labs: Ongoing anemia with a hemoglobin of 8.8. Renal function stable. Mild hyponatremia, 135. Potassium stable. Mag 2.1. High-sensitivity troponins elevated but flat (176>>163>>181), similar results to prior admissions. Upon entrance into the room patient resting on the edge of the bed. Had a bad evening. Notes that she ate stewed tomatoes last evening and since then she has had heart burn and dyspnea. Complaining of gas pains. Mild lower extremity edema and orthopnea. On supplemental o2- sats in the upper 90s. Review of Systems Review of Systems: All systems reviewed & are unremarkable except as noted in HPI & below Physical Exam Constitutional: well nourished and + ill appearing; no acute distress Neck: normal visual inspection and trachea midline Respiratory: normal respiratory effort; no respiratory distress, no labored breathing, no cough and not tachypneic Auscultation: + rales (BL bases ); no crackles, no rhonchi and no wheezes Cardiovascular: Rate/Rhythm: regular rate and regular rhythm Heart Sounds: normal S1, normal S2 and + murmur (2/6 systolic ) Vessels: no JVD Extremities: + edema (trace BL nonpitting lower extremity edema ) Skin: no rashes, warm and dry Psychiatric: A+Ox3, euthymic affect Results & Data Vital Signs (Past 12 Hours) Vital Signs Temp Pulse Pulse Resp BP BP Pulse Ox 11/07/23 03:00 37 C 82 18 132/74 96 11/06/23 23:59 69 11/06/23 23:25 76 24 167/56 H 96 11/06/23 22:44 36.8 C 80 16 171/56 H 96 11/06/23 20:10 11/06/23 19:37 36.6 C 70 18 165/57 H 97 O2 Del Method O2 Flow Rate 11/07/23 03:00 Nasal Cannula 2 11/06/23 23:59 11/06/23 23:25 Nasal Cannula 2 11/06/23 22:44 Nasal Cannula 2 11/06/23 20:10 Nasal Cannula 2 11/06/23 19:37 Nasal Cannula 2 Laboratory Results Cardiac Enzymes 11/06/23 11/06/23 11/07/23 Range/Units 10:42 17:03 00:32 Troponin I High Sens 197.4 H* 191.7 H* 163.7 H* (0-14) pg/ml Comprehensive Metabolic Panel 11/07/23 Range/Units 05:43 Sodium 135 L (136-145) mmol/L Potassium 4.6 (3.5-5.1) mmol/L Chloride 102 (98-107) mmol/L Carbon Dioxide 24 (21-32) mmol/L BUN 49 H (6-23) mg/dl Creatinine 1.93 H (0.6-1.2) mg/dl Glucose 92 (70-99(Fasting)) mg/dl Calcium 9.5 (8.6-10.3) mg/dl Intake and Output 11/06/23 11/07/23 11/07/23 22:59 06:59 14:59 Intake Total 200 / 1185 300 / 1185 Output Total 500 / 750 100 / 750 Balance -300 / 435 200 / 435 Intake: Oral 200 / 1000 300 / 1000 Output: Urine 500 / 750 100 / 750 Other: Weight 61.3 kg Weight Measurement Method Built in [facility] (1) Insomnia Insomnia type: unspecified Qualified Code(s): G47.00 - Insomnia, unspecified (4) Coronary artery disease Associated angina: with unspecified form of angina Coronary Disease- Associated Artery/Lesion type: elem artery Pala vs. transplanted heart: elem heart Qualified Code(s): I25.119 - Atherosclerotic heart disease of elem coronary artery with unspecified angina pectoris (6) Hypertension Hypertension type: primary hypertension Qualified Code(s): I10 - Essential (primary) hypertension
[2023-11-07] MEDS: TORSEMIDE 20 MG TAB PO SCH (08:21)
--- NOTE | 2023-11-07 10:38 | Electrocardiogram Report ---
Test Reason : Blood Pressure : / mmHG Vent. Rate : 078 BPM Atrial Rate : 625 BPM P-R Int : 000 ms QRS Dur : 116 ms QT Int : 396 ms P-R-T Axes : 000 -26 116 degrees QTc Int : 451 ms Normal sinus rhythm Left ventricular hypertrophy with QRS widening and repolarization abnormality Abnormal ECG Confirmed by Philipp Shannon ([id number]) on 11/07/2023 10:38:00 AM Referred By: REFERRED SELF Confirmed By:Wander Shannon
--- NOTE | 2023-11-07 10:44 | Electrocardiogram Report ---
Test Reason : Blood Pressure : / mmHG Vent. Rate : 075 BPM Atrial Rate : 075 BPM P-R Int : 150 ms QRS Dur : 122 ms QT Int : 398 ms P-R-T Axes : -21 -27 113 degrees QTc Int : 444 ms Normal sinus rhythm Left ventricular hypertrophy with QRS widening and repolarization abnormality Abnormal ECG Confirmed by Philipp Shannon ([id number]) on 11/07/2023 10:43:58 AM Referred By: REFERRED SELF Confirmed By:Wander Shannon
--- NOTE | 2023-11-07 10:46 | Electrocardiogram Report ---
Test Reason : Blood Pressure : / mmHG Vent. Rate : 074 BPM Atrial Rate : 576 BPM P-R Int : 000 ms QRS Dur : 116 ms QT Int : 406 ms P-R-T Axes : 000 -26 114 degrees QTc Int : 450 ms Normal sinus rhythm Abnormal ECG Confirmed by Philipp Shannon ([id number]) on 11/07/2023 10:46:16 AM Referred By: REFERRED SELF Confirmed By:Wander Shannon
[2023-11-07] MEDS: POLYETHYLENE (MIRALAX) 17 GM PACK PO SCH (11:45)
[2023-11-07] MEDS: DOCUSATE SODIUM 100 MG CAP PO SCH (11:45)
--- NOTE | 2023-11-07 15:09 | Psychiatric Consultation ---
Date of Consultation November 07, 2023 Impression / Recommendations Impression 78 yo woman with worsening chronic pain and headaches vs neck pain which seems to be contributing to difficulty sleeping as well as decreased appetite. She acknowledges some mood changes-both depression and anxiety related to her pain and is agreeable to a medication like mirtazapine that could offer benefits for mood, sleep and appetite. Trial of mirtazapine seems reasonable, would continue to monitor sodium to ensure no worsening if mirtazapine is trialed. Pain management seems to be the underlying cause for her mood changes. Overall, I spent a total of 45 minutes with this case including review of chart records, review of labwork, direct evaluation of the patient at bedside, counseling the patient, discussion of the patient with the Nurse and with the hospitalist provider, discussion with the psychiatric liason during clinical rounds, review of collateral historian information from the family and documentation in the electronic health record. (1) Adjustment disorder with mixed anxiety and depressed mood: (2) Insomnia: Insomnia type: unspecified Qualified Code(s): G47.00 - Insomnia, unspecified (3) Chronic back pain: Plan -Consider trial of mirtazapine 7.5mg HS -Ongoing pain management as seems this is contributing to difficulty sleeping to head/neck pain -If these interventions and other pain management strategies are ineffective then could consider use of duloxetine for pain management and anxiety if hyponatremia improves. 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 Psychiatry consulted for recommendations for anxiety and sleep. Chief Complaint "I need to saw off that bone to get some relief". History of Present Illness She presents with difficulty sleeping, stating that she has been experiencing significant pain in her bottom due to a bone issue that has worsened since losing weight. She reports that the pain is constant and exacerbated when sitting or lying down, which contributes to her sleep disturbances. She denies having panic attacks but expresses uncertainty about whether she is experiencing depression, attributing her emotional state to the pain and frustration of not being able to sleep. She has a history of back surgery and reports that her current pain has been an ongoing issue since the procedure. She has tried using doughnut cushions for relief, but they have not been effective. Georgina also complains of a severe h eadache, both in the front and back of her head, which worsens when lying down and may be contributing to her difficulty falling asleep. Additionally, she experiences leg pain and swelling. She has a history of taking medication for sleep, but she cannot recall the specific medication prescribed. She reports having a dry, burning throat and a bleeding nose due to the use of oxygen therapy, which she believes she should not need. Georgina also mentions that she has a decreased appetite and difficulty swallowing. Allergies Allergy/AdvReac Type Severity Reaction Status Date / Time gabapentin AdvReac Intermediate cough Verified 11/05/23 19:27 oxycodone AdvReac Intermediate "makes me Verified 11/05/23 19:27 go crazy" ramipril AdvReac Intermediate cough Verified 11/05/23 19:27 Home Medications Medication Instructions Recorded Confirmed Type aspirin 81 mg tablet,delayed 81 mg PO DAILY 10/19/23 11/05/23 History release atorvastatin 20 mg tablet 20 mg PO DAILY 10/19/23 11/05/23 History hydrocodone 10 mg-acetaminophen 1 tab PO BID PRN Severe Pain 10/19/23 11/05/23 History 325 mg tablet (Scale Score 7-10) omeprazole 20 mg capsule,delayed 20 mg PO DAILY 10/19/23 11/05/23 History release diclofenac sodium 1 % topical gel 2 g EXT BID #50 grams 10/22/23 11/05/23 Rx (Voltaren Arthritis Pain) hydralazine 50 mg tablet 50 mg PO QID #120 tabs 10/22/23 11/05/23 Rx isosorbide dinitrate 20 mg tablet 20 mg PO BID@0700,1200 #60 tabs 10/22/23 11/05/23 Rx torsemide 10 mg tablet 10 mg PO DAILY #1 tab 10/22/23 11/05/23 Rx acetaminophen 650 mg 650 mg PO Q8H PRN Pain 11/05/23 11/05/23 History tablet,extended release amlodipine 10 mg tablet 10 mg PO QAM 11/05/23 11/05/23 History ascorbic acid (vitamin C) 1,000 mg 500 mg PO Q OTHER DAY 11/05/23 11/05/23 History tablet (Vitamin C) cholecalciferol (vitamin D3) 25 25 mcg PO DAILY 11/05/23 11/05/23 History mcg (1,000 unit) capsule (Vitamin D3) cranberry concentrate-ascorbic 4 cap PO DAILY 11/05/23 11/05/23 History acid 140 mg-100 mg capsule (Cranberry Plus Vitamin C) cyanocobalamin (vitamin B-12) 1,000 mcg PO Q OTHER DAY 11/05/23 11/05/23 History 1,000 mcg tablet (Vitamin B-12) docusate sodium 100 mg capsule 100 - 200 mg PO DAILY PRN 11/05/23 11/05/23 History Constipation nitroglycerin 0.3 mg sublingual 0.3 mg sublingual DIRECTED PRN 11/05/23 11/05/23 History tablet (Nitrostat) Chest Pain pediatric multivitamin 1 tab PO 2XWK 11/05/23 11/05/23 History no.226-ferrous sulfate 18 mg chewable tablet (Flintstones with Extra Iron) polyethylene glycol 3350 17 17 g PO DAILY PRN Constipation 11/05/23 11/05/23 History gram/dose oral powder (Miralax) pyridoxine (vitamin B6) 50 mg 50 mg PO DAILY 11/05/23 11/05/23 History tablet (Vitamin B-6) ramelteon 8 mg tablet 8 mg PO HS 11/05/23 11/05/23 History vitamin E 670 mg (1,000 unit) 670 mg PO DAILY 11/05/23 11/05/23 History capsule Patient History Medical History (Updated 11/07/23 @ 22:30 by Kirsten Wing MD) CKD (chronic kidney disease) stage 4, GFR 15-29 ml/min Chronic heart failure with preserved ejection fraction (HFpEF) Myalgia Generalized weakness Acute exacerbation of congestive heart failure COVID Hypertensive crisis Chronic sialoadenitis Poor historian Chronic back pain Osteoarthritis History of esophageal dilatation GERD (gastroesophageal reflux disease) Leaky heart valve per pt aorta--follows with Dr. Gonzáles Hypertension Hyperlipidemia Cardiac murmur Esophageal motility disorder "noted on barium swallow 10/2014" Chawla's esophagus Aortic stenosis "moderately severe by echo September 2013" Coronary artery disease LM PCI 07/27/2022 Surgical History History of colonoscopy History of umbilical hernia repair History of cardiac cath x3--last 12/2018 no stents History of hysterectomy History of lumpectomy cant remember which breast---benign fatty tissue History of bilateral tubal ligation History of carpal tunnel release of both wrists History of lumbar spinal fusion History of total left knee replacement (TKR) History of appendectomy History of cholecystectomy History of esophagogastroduodenoscopy (EGD) History of tooth extraction History of tonsillectomy History of sinus surgery Family History Other No family history of adverse response to anesthesia No family history of bleeding disorder Social History Smoking Status: Former smoker Tobacco Type: Cigarettes Smoking End Date: 40 years ago; Second Hand Exposure: No; Do You Dip or Chew Tobacco: No; Hx Alcohol Use: No Hx Substance Use: No Preferred Language: French Communication Ability: Effective Banquet Cook Required: No Beliefs That Will Affect Care: Religion Religion Beliefs: 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 Sons help daily. Other Information That Helps Us Care for You: No Feels Safe at Home: Yes Safety Concerns: Feels Safe At This Time Assistive Devices: Cane, Walker and Wheelchair Physical Exam Psychiatric: Orientation: alert and oriented x 3 Apperance: appropriately dressed and appropriately groomed Eye Contact: + fair eye contact Motor Behavior: no abnormal motor movements Speech: normal rate/rhythm/volume of speech Affect: + irritable affect Mood: + anxious mood and + irritable mood Thought Process: + concrete thought process Thought Content: reality based without delusions Suicidal Thoughts: denies suicidal thoughts Homicidal Thoughts: denies homicidal thoughts Hallucinations: no auditory hallucinations and no visual hallucinations Cognition: recent memory grossly intact, remote memory grossly intact, attention grossly intact and language grossly intact Estimated Intelligence: consistent with education level Insight: + limited insight Judgment: + limited judgement Vital Signs (Past 24 Hours): Last Vital Signs Temp 36.6 C 11/07/23 11:48 Pulse 74 11/07/23 11:48 Resp 18 11/07/23 11:48 BP 158/57 H 11/07/23 11:48 Pulse Ox 96 11/07/23 14:28 O2 Del Method Nasal Cannula 11/07/23 11:48 O2 Flow Rate 4 11/07/23 11:48 Results & Data (PSY) Laboratory Results low Na+ Medications Administered Acetaminophen (Acetaminophen 325 Mg Tab) 650 mg PO Q4H PRN PRN Reason: Pain or Fever Stop: 12/05/23 22:56 Last Admin: 11/07/23 05:00 Dose: 650 mg Documented By: Admin: 11/06/23 14:39 Dose: 650 mg Documented By: Admin: 11/06/23 02:38 Dose: 650 mg Documented By: SASKIA Amlodipine Besylate (Amlodipine Besylate 5 Mg Tab) 10 mg PO QAM [facility] Stop: 12/06/23 08:59 Last Admin: 11/07/23 08:21 Dose: 10 mg Documented By: Admin: 11/06/23 10:09 Dose: 10 mg Documented By: KEARA Ascorbic Acid (Ascorbic Acid 500 Mg Tab) 500 mg PO Q48H [facility] Stop: 12/06/23 08:59 Last Admin: 11/06/23 10:06 Dose: 500 mg Documented By: KEARA Aspirin (Aspirin 81 Mg Ectab) 81 mg PO DAILY [facility] Stop: 12/06/23 08:59 Last Admin: 11/07/23 08:21 Dose: 81 mg Documented By: Admin: 11/06/23 10:09 Dose: 81 mg Documented By: KEARA Atorvastatin Calcium (Atorvastatin 20 Mg Tab) 20 mg PO DAILY [facility] Stop: 12/06/23 08:59 Last Admin: 11/07/23 08:20 Dose: 20 mg Documented By: Admin: 11/06/23 10:08 Dose: 20 mg Documented By: KEARA Cyanocobalamin (Cyanocobalamin (B-12) 500 Mcg Tablet) 1,000 mcg PO Q48H [facility] Stop: 12/06/23 08:59 Last Admin: 11/06/23 10:08 Dose: 1,000 mcg Documented By: KEARA Diclofenac Sodium (Diclofenac Sod 1% Gel 100 Gm Tube) 2 gm EXT BID MELLISA; Protocol Stop: 12/06/23 08:59 Last Admin: 11/07/23 08:21 Dose: Not Given Documented By: Admin: 11/06/23 20:56 Dose: 2 gm Documented By: Admin: 11/06/23 10:10 Dose: 2 gm Documented By: KEARA Docusate Sodium (Docusate Sodium 100 Mg Cap) 100 mg PO BID MELLISA Stop: 12/07/23 11:14 Last Admin: 11/07/23 11:45 Dose: 100 mg Documented By: Hydralazine HCl (Hydralazine Tab 50 Mg Tab) 50 mg PO QID [facility] Stop: 12/06/23 08:59 Last Admin: 11/07/23 13:18 Dose: 50 mg Documented By: Admin: 11/07/23 08:20 Dose: 50 mg Documented By: Admin: 11/06/23 20:11 Dose: 50 mg Documented By: Admin: 11/06/23 17:22 Dose: 50 mg Documented By: Admin: 11/06/23 14:18 Dose: 50 mg Documented By: Admin: 11/06/23 10:07 Dose: 50 mg Documented By: KEARA Isosorbide Dinitrate (Isosorbide Dinitrate 20 Mg Tab) 20 mg PO BID@0700,1200 [facility] Stop: 12/06/23 06:59 Last Admin: 11/07/23 11:45 Dose: 20 mg Documented By: Admin: 11/07/23 06:04 Dose: 20 mg Documented By: Admin: 11/06/23 13:25 Dose: 20 mg Documented By: Admin: 11/06/23 06:08 Dose: 20 mg Documented By: SASKIA Multivitamins/Folic Acid/Vitamin C (Multivitamin Chewable Tab) 1 tab PO TuSa@0900 MELL[facility] Stop: 12/06/23 08:59 Last Admin: 11/06/23 10:08 Dose: 1 tab Documented By: KEARA Nitroglycerin (Nitroglycerin Sl 0.4 Mg/Tab Tab) 0.4 mg SL Q5M PRN PRN Reason: Chest Pain Stop: 12/05/23 22:56 Last Admin: 11/06/23 23:29 Dose: 0.4 mg Documented By: SASKIA Pantoprazole Sodium (Pantoprazole 40 Mg Tab) 40 mg PO DAILY [facility] Stop: 12/06/23 08:59 Last Admin: 11/07/23 08:21 Dose: 40 mg Documented By: Admin: 11/06/23 10:06 Dose: 40 mg Documented By: KEARA Polyethylene Glycol (Polyethylene (Miralax) 17 Gm Pack) 17 gm PO DAILY MELL[facility] Stop: 12/07/23 11:14 Last Admin: 11/07/23 11:45 Dose: 17 gm Documented By: Pyridoxine HCl (Pyridoxine Hcl 50 Mg Tab) 50 mg PO DAILY MELL[facility] Stop: 12/06/23 08:59 Last Admin: 11/07/23 08:20 Dose: 50 mg Documented By: Admin: 11/06/23 10:07 Dose: 50 mg Documented By: KEARA Torsemide (Torsemide 20 Mg Tab) 20 mg PO MoWeFr@0900 MELLISA Stop: 12/07/23 08:59 Last Admin: 11/07/23 08:21 Dose: 20 mg Documented By: Vitamin D (Cholecalciferol 25 Mcg (1000 Units) Tab) 25 mcg PO DAILY MELLISA Stop: 12/06/23 08:59 Last Admin: 11/07/23 08:20 Dose: 25 mcg Documented By: Admin: 11/06/23 10:09 Dose: 25 mcg Documented By: KEARA Vitamin E (Tocopheryl, Dl-Alpha 400 Units 180 Mg Cap) 800 units PO DAILY MELL[facility] Stop: 12/06/23 08:59 Last Admin: 11/07/23 08:20 Dose: 800 units Documented By: Admin: 11/06/23 10:06 Dose: 800 units Documented By: KEARA Vitamin E (Tocopheryl, Dl-Alpha 100 Units 67 Mg Cap) 200 units PO DAILY [facility] Stop: 12/06/23 08:59 Last Admin: 11/07/23 08:20 Dose: 200 units Documented By: Admin: 11/06/23 10:10 Dose: 200 units Documented By: KEARA Coding Level of Care Code 44493 IN/OBS CONSULT LVL 3,45M Diagnoses Adjustment disorder with mixed anxiety and depressed mood F43.23 Insomnia, unspecified type G47.00 Insomnia type: unspecified Chronic back pain M54.9; G89.29
--- NOTE | 2023-11-07 16:06 | Hospitalist Progress Note ---
Date of Service November 07, 2023 Assessment & Plan (1) Insomnia: Plan: 78-year-old female with past medical history significant for hyperlipidemia, COPD, peripheral artery disease, chronic diastolic CHF, pulmonary hypertension, history of CAD s/p left main stent, moderate to severe aortic valve stenosis, hypertension, carotid stenosis bilateral, 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 Because of weakness she is not able to ambulate much. Appetite is down. Having some headaches when she is lying down. Have some sore throat. Denies any fevers. No cough. No chest pain. Has some shortness of breath on exertion. No nausea. No abdominal pain. Normal bowel and bladder movements. Patient recently had right and left heart catheterization at [place] which showed mild coronary disease , moderate aortic stenosis and severely elevated right heart pressures , left main coronary stent was patent. Mild to moderate diffuse RCA disease noted and mild LAD disease and mild proximal left circumflex disease. Patient was again recently admitted to [facility] on 10/18/23 because of SHEA and hyponatremia and placed on fluid restriction 1.5 L a day and also her blood pressure medications were adjusted per cardiology and discharged on first 2023. Patient states since last for 4/5 days she is not able to sleep at all. Asking to help her sleep. Feeling tired because of that. Hemodynamics are okay. Insomnia-ongoing issue. Discussed with psychiatry. Will start on Remeron and melatonin. CKD4 -creatinine up to 1.9 from 1.7 yesterday. Cardiology holding a.m. dose of torsemide dose for now. Repeat labs in AM. Chronic diastolic CHF-currently volume status look stable, cardiology managing diuretics. Follow-up on labs and volume status. Moderate aortic stenosis-echo reviewed. Cardiology recommended against LINDEN/ARB's. Recommend outpatient follow-up with valve clinic Dr. Son in November. CAD/elevated troponin-status post PCI July 2022. Patient has chronically elevated troponin but no acute EKG changes or chest pain. Troponin elevation likely related to CKD. Continue aspirin, statin Hypertension-continue Norvasc, Isordil, hydralazine. Avoid LINDEN/ARB's due to renal impairment and aortic stenosis. Avoid beta-blockers due to history of bradycardia. Chronic back pain-PDMP reviewed. Since patient has been on B[place]l 10-325 twice daily, consistently refilled every month but has not been getting it here. Will start oxycodone 5 twice daily along with Tylenol 3 times daily for pain relief. Will have Lidoderm patch. Can try Cymbalta if pain persistent Constipation-started on bowel regimen. Will follow. Hypomagnesemia-resolved GERD/hiatal hernia, history of esophageal strictures, esophageal dysmotility disorder- On PPI Chronic anemia-hemoglobin close to 9. Stable. DVT prophylaxis-subcu heparin Disposition-pending symptomatic improvement Time spent-approximately 40 minutes Admission and Anticipated Discharge Date Admission Date: November 05, 2023 Subjective Patient was seen and examined at bedside. She is upset about not being able to sleep and is complaining that we are not helping her enough. States sleep issues for over a year now, and she has not had any sleep for 5 days prior to presentation. She had a few hours of sleep with Ativan yesterday. Also complaining of poor oral intake along with constipation. Complains of some back pain and discomfort. Denies chest pain, nausea or vomiting. Review of Systems Review of Systems: All systems reviewed & are unremarkable except as noted in Subjective Physical Exam Physical Exam: General: Sitting in chair, not in acute distress, on NC HEENT: JAYLEN, MMM Chest: Clear breath sounds bilaterally, no wheezes or crackles CVS: Regular rate and rhythm, normal heart sounds, systolic murmur Abdomen: Soft, non tender, not distended, normal bowel sounds Neuro: Awake, alert, oriented, conversing well, non focal Extremities: Trace pedal edema Psych: Anxious, upset Results & Data Results & Data Vital Signs (Past 12 Hours) Vital Signs Temp Pulse Pulse Resp BP Pulse Ox O2 Del Method 11/07/23 14:28 96 11/07/23 11:48 36.6 C 74 18 158/57 H 99 Nasal Cannula 11/07/23 07:31 36.9 C 73 18 155/52 H 96 Nasal Cannula 11/07/23 07:19 Nasal Cannula 11/07/23 07:00 75 O2 Flow Rate 11/07/23 14:28 11/07/23 11:48 4 11/07/23 07:31 4 11/07/23 07:19 2 11/07/23 07:00 (1) Insomnia Insomnia type: unspecified Qualified Code(s): G47.00 - Insomnia, unspecified
[2023-11-07] MEDS: LIDOCAINE 5% 1 PATCH TD SCH (18:18)
[2023-11-07] MEDS: ACETAMINOPHEN 500 MG TAB PO SCH (20:11)
[2023-11-07] MEDS: HEPARIN SOD 5,000 UNIT/0.5 ML VIAL SQ SCH (20:12)
[2023-11-07] MEDS: MIRTAZAPINE TAB 15 MG TAB PO SCH (20:15)
[2023-11-07] MEDS: MELATONIN 3 MG TAB PO SCH (20:16)
[2023-11-07] MEDS: oxyCODONE HCL IR 5 MG TAB (IMMEDIATE RELEASE) PO SCH (20:19)
--- NOTE | 2023-11-08 07:30 | Cardiology Progress Note ---
Date of Service November 08, 2023 Assessment & Plan (1) Insomnia: (2) Chronic heart failure with preserved ejection fraction (HFpEF): (3) Aortic stenosis: (4) Coronary artery disease: (5) Elevated troponin: (6) Hypertension: Plan IMPRESSION: Medically complex 78 year old female with complex valvular heart disease, CAD (PCI to 07/2022), and diastolic CHF. Admitted due to 5 nights of insomnia resulting in generalized weakness and fatigue. Symptomatic improvement with IV Ativan. +Nocturnal hypoxia on overnight study. PLAN: Insomnia: -Seems like this is her main concern at this time. -Treatment per primary service-- anxiety likely playing a role. -Symptom improvement with IV Ativan -Nocturnal pulse ox study positive for hypoxemia, recommend formal sleep study +/- O2 during sleep times hours. Chronic HFpEF: -Torsemide on hold due to poor oral intake and slight decline in renal function. Euvolemic/hypovolemic on exam. -Mild orthopnea and gas pains/heart burn since eating acidic foods the prior evening-- will defer to primary service. Aortic stenosis: -Moderate as per recent echocardiogram and cardiac cath -Recommend avoiding LINDEN-I/ARB medications --these are not generally recommended in the setting of aortic stenosis. -Plans to follow up with valve clinic (Dr. Son) in November. CAD/Elevated troponin: -Status post PCI to the , 07/27/2022-- stable, no angina. -Patient with chronic elevation. No acute EKG changes to suggest ischemia -CKD contributing factor. -Continue ASA 81 mg daily and Statin as ordered HTN: -Continue multidrug regimen of Norvasc 10 mg daily, Isordil 20 mg BID, and Hydralazine 50 mg QID. Will titrate as appropriate. -Avoiding LINDEN/ARB due to renal function and . -Avoiding Beta torrie due to prior bradycardia Case discussed with Dr. Schwartz. Will follow. I spent a total of 30 minutes on the date of service in preparation, delivery, and documentation of the care provided to the patient excluding any time spent in the performance of separately billed services. DENIA Pino Department of Cardiology, [facility] This chart was completed in part utilizing Speech Voice Recognition Software. Grammatical errors, random word insertions, pronoun errors, and incomplete sentences are an occasional consequence of this system due to software limitations, ambient noise, and hardware issues. Any formal questions or concerns about the content, text, or information contained within the body of this dictation should be directly addressed to the provider for clarification. Admission and Anticipated Discharge Date Admission Date: November 05, 2023 Supervising Physician Co-Signing Physician Notes Patient seen and examined assessment and plan as above Will resume torsemide previously recommended dosing 10 mg daily with an additional 10 mg Sunday Subjective Medically complex 78 year old female with complex valvular heart disease, CAD (PCI to LM 07/2022), and diastolic CHF. Admitted due to 5 nights of insomnia resulting in generalized weakness and fatigue. Symptomatic improvement with IV Ativan last evening. 11/06/2023: Symptomatic improvement in fatigue with the use of IV Ativan overnight Possible small effusion on chest x-ray with mild orthopnea. Torsemide increased to 20 mg every Sunday and 10 mg all other days. 11/07/2023: Torsemide held due to poor PO intake and slight increase in scr. Nocturnal pulse ox study positive for hypoxemia, 10 desaturations in the mid 80s. Psych consulted for ongoing insomnia and anxiety 11/08/2023: Telemetry: SR with PVCs 70s I/O: +283mL Weight: 62.6 kg >> 61.3 kg >>61.8 kg Labs: PENDING Upon entrance into the room patient resting in bed. Continues to have difficulty sleeping. Feels better using supplemental O2. Sats in the mid to upper 90s. Continues to have reflux symptoms in her throat and gas pains. No Lower extremity edema. Review of Systems Review of Systems: All systems reviewed & are unremarkable except as noted in HPI & below Physical Exam Constitutional: well nourished and + ill appearing; no acute distress Neck: normal visual inspection and trachea midline Respiratory: normal respiratory effort; no respiratory distress, no labored breathing, no cough and not tachypneic Auscultation: lungs clear to auscultation bilaterally; no crackles, no rales, no rhonchi and no wheezes Cardiovascular: Rate/Rhythm: regular rate, regular rhythm and + bradycardic Heart Sounds: normal S1, normal S2 and + murmur (2/6 systolic ) Vessels: dorsalis pedis pulses present; no JVD Extremities: no edema Skin: no rashes, warm and dry Psychiatric: A+Ox3, euthymic affect Results & Data Vital Signs (Past 12 Hours) Vital Signs Temp Pulse Pulse Pulse Resp BP BP 11/08/23 03:00 36.8 C 74 15 154/63 H 11/08/23 02:49 76 11/08/23 00:12 11/07/23 22:54 37.1 C 93 H 21 166/56 H 11/07/23 22:44 87 11/07/23 22:34 84 11/07/23 19:58 36.7 C 83 20 168/57 H Pulse Ox Pulse Ox Pulse Ox O2 Del Method O2 Del Method O2 Del Method O2 Flow Rate 11/08/23 03:00 94 Nasal Cannula 1.5 11/08/23 02:49 96 Nasal Cannula 11/08/23 00:12 Nasal Cannula 1 11/07/23 22:54 88 L Nasal Cannula 2 11/07/23 22:44 90 Nasal Cannula 11/07/23 22:34 91 Room Air 11/07/23 19:58 92 Nasal Cannula 2 O2 Flow Rate 11/08/23 03:00 11/08/23 02:49 1 11/08/23 00:12 11/07/23 22:54 11/07/23 22:44 1 11/07/23 22:34 11/07/23 19:58 Laboratory Results CBC 11/08/23 Range/Units 07:53 WBC 6.58 (4.8-10.8) K/ul RBC 3.11 L (4.20-5.40) M/uL Hgb 9.1 L (12.0-16.0) g/dl Hct 28.0 L (37.0-47.0) % Plt Count 293 (130-400) K/uL Comprehensive Metabolic Panel 11/08/23 Range/Units 07:53 Sodium 133 L (136-145) mmol/L Potassium 4.5 (3.5-5.1) mmol/L Chloride 102 (98-107) mmol/L Carbon Dioxide 22 (21-32) mmol/L BUN 53 H (6-23) mg/dl Creatinine 1.89 H (0.6-1.2) mg/dl Glucose 101 H (70-99(Fasting)) mg/dl Calcium 9.8 (8.6-10.3) mg/dl Intake and Output 04/17/24 04/18/24 04/18/24 22:59 06:59 14:59 Output Total 200 / 402 50 / 402 Balance -200 / -152 -50 / -152 Output: Urine 200 / 400 50 / 400 Other: Weight 61.8 kg Weight Measurement Method Standing Scale (1) Insomnia Insomnia type: unspecified Qualified Code(s): G47.00 - Insomnia, unspecified (4) Coronary artery disease Associated angina: with unspecified form of angina Coronary Disease- Associated Artery/Lesion type: [place] artery [place] vs. transplanted heart: [place] heart Qualified Code(s): I25.119 - Atherosclerotic heart disease of [place] coronary artery with unspecified angina pectoris (6) Hypertension Hypertension type: primary hypertension Qualified Code(s): I10 - Essential (primary) hypertension
[2023-11-08 08:07] LABS: Hemoglobin 9.1 g/dl (12.0-16.0); Mean Corpuscular Hemoglobin 29.3 pg (25.0-34.0); Mean Corpuscular Hgb Conc 32.5 g/dL (32.0-36.0); Mean Platelet Volume 9.6 fL (9.4-12.4); Platelet Count 293 K/uL (130-400); RDW Coefficient of Variation 13.7 % (11.5-14.5); RDW Standard Deviation 44.6 fL (36.4-46.3); Red Blood Count 3.11 M/uL (4.20-5.40); White Blood Count 6.58 K/ul (4.8-10.8)
[2023-11-08 08:24] LABS: Calcium 9.8 mg/dl (8.6-10.3); Creatinine Clr Calc Pharmacy 19.6 ml/min; Est GFR (African American) 28.5 ml/min; Est GFR (Non-African American) 24.6 ml/min; Potassium 4.5 mmol/L (3.5-5.1)
[2023-11-08] MEDS: ALUMINUM/MAGNESIUM/SIMETH (MAALOX MAX) 30 ML UDC PO STA (09:02)
[2023-11-08] MEDS: FAMOTIDINE 20MG IV PUSH 20 MG/5 ML SYR IV STA (09:28)
[2023-11-08] MEDS: ALUMINUM/MAGNESIUM/SIMETH (MAALOX MAX) 30 ML UDC PO SCH (09:46)
[2023-11-08] MEDS: TORSEMIDE 10 MG TAB PO SCH (10:47)
--- NOTE | 2023-11-08 15:52 | Hospitalist Progress Note ---
Date of Service November 08, 2023 Assessment & Plan (1) Insomnia: Plan: 78-year-old female with past medical history significant for hyperlipidemia, COPD, peripheral artery disease, chronic diastolic CHF, pulmonary hypertension, history of CAD s/p left main stent, moderate to severe aortic valve stenosis, hypertension, carotid stenosis bilateral, 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 Because of weakness she is not able to ambulate much. Appetite is down. Having some headaches when she is lying down. Have some sore throat. Denies any fevers. No cough. No chest pain. Has some shortness of breath on exertion. No nausea. No abdominal pain. Normal bowel and bladder movements. Patient recently had right and left heart catheterization at [facility] which showed mild coronary disease , moderate aortic stenosis and severely elevated right heart pressures , left main coronary stent was patent. Mild to moderate diffuse RCA disease noted and mild LAD disease and mild proximal left circumflex disease. Patient was again recently admitted to [facility] on 10/18/23 because of SHEA and hyponatremia and placed on fluid restriction 1.5 L a day and also her blood pressure medications were adjusted per cardiology and discharged on 2023. Patient states since last for 4/5 days she is not able to sleep at all. Asking to help her sleep. Feeling tired because of that. Hemodynamics are okay. Insomnia-ongoing issue. Psychiatry recommendations reviewed and was started on Remeron which did not seem to help. Patient could not get to sleep despite Remeron and melatonin last night. Will try Ambien tonight. CKD4 -creatinine overall stable. Still with cardiology. Okay to resume home dose of torsemide. Chronic diastolic CHF-currently volume status look stable, cardiology managing diuretics. Follow-up on labs and volume status. Moderate aortic stenosis-echo reviewed. Cardiology recommended against LINDEN/ARB's. Recommend outpatient follow-up with valve clinic Dr. Sno in November. CAD/elevated troponin-status post PCI July 2022. Patient has chronically elevated troponin but no acute EKG changes or chest pain. Troponin elevation likely related to CKD. Continue aspirin, statin Hypertension-continue Norvasc, Isordil, hydralazine. Avoid LINDEN/ARB's due to renal impairment and aortic stenosis. Avoid beta-blockers due to history of bradycardia. Chronic back pain-PDMP reviewed. Since patient has been on [place] 10-325 twice daily, consistently refilled every month but has not been getting it here. Will start oxycodone 5 twice daily along with Tylenol 3 times daily for pain relief. Will have Lidoderm patch. Can try Cymbalta if pain persistent Constipation-started on bowel regimen. Will follow. Hypomagnesemia-resolved GERD/hiatal hernia, history of esophageal strictures, esophageal dysmotility disorder- On PPI Chronic anemia-hemoglobin close to 9. Stable. GERD-will start on Maalox and PPI DVT prophylaxis-subcu heparin Disposition-anticipate can discharge to rehab tomorrow if symptomatically improved Time spent-approximately 40 minutes Admission and Anticipated Discharge Date Admission Date: November 05, 2023 Subjective Patient was seen and examined at bedside. She complains of burning sensation in her throat since yesterday. She also states she could not get much sleep last night due to the oximetry test, also states the sleep medicine do not seem to be working. Pain is controlled. Shortness of breath improved. No fever, chills, chest pain, nausea or vomiting. Review of Systems Review of Systems: All systems reviewed & are unremarkable except as noted in Subjective Physical Exam Physical Exam: General: Lying in bed, not in acute distress, on NC HEENT: JAYLEN, MMM Chest: Clear breath sounds bilaterally, no wheezes or crackles CVS: Regular rate and rhythm, normal heart sounds, systolic murmur Abdomen: Soft, non tender, not distended, normal bowel sounds Neuro: Awake, alert, oriented, conversing well, non focal Extremities: Trace pedal edema Psych: Anxious, upset Results & Data Results & Data Vital Signs (Past 12 Hours) Vital Signs Temp Pulse Pulse Resp BP BP Pulse Ox 11/08/23 15:47 36.9 C 79 18 150/50 H 94 11/08/23 11:37 36.5 C 81 18 175/62 H 93 11/08/23 09:50 11/08/23 09:03 74 11/08/23 07:33 36.7 C 76 16 162/58 H 95 O2 Del Method O2 Flow Rate 11/08/23 15:47 Room Air 11/08/23 11:37 Nasal Cannula 1.5 11/08/23 09:50 Nasal Cannula 1 11/08/23 09:03 11/08/23 07:33 Nasal Cannula (1) Insomnia Insomnia type: unspecified Qualified Code(s): G47.00 - Insomnia, unspecified
[2023-11-08] MEDS: PANTOprazole 40 MG in SYRINGE 0 ML IV SCH (20:30)
[2023-11-08] MEDS: ZOLPIDEM TARTRATE 5 MG TAB PO SCH (20:35)
[2023-11-09] MEDS: LORazepam 0.5 MG TAB PO PRN (02:26)
[2023-11-09] MEDS: cloNIDine HCL 0.1 MG TAB PO ONE (04:20)
[2023-11-09] MEDS: LORazepam 0.5 MG TAB PO STA (04:20)
[2023-11-09] MEDS: IPRATROPIUM BROMIDE NEB SOLN 0.02% 0.5MG/2.5ML VIAL INH STA (05:41)
[2023-11-09] MEDS: LEVALBUTEROL 1.25 MG/3 ML NEB NEB STA (05:41)
[2023-11-09] MEDS: FUROSEMIDE 40 MG/4 ML VIAL IV ONE (05:56)
[2023-11-09 06:24] LABS: Basophils # (auto) 0.09 K/uL (0.00-0.20); Basophils % (auto) 1.1 %; Eosinophils # (auto) 0.33 K/uL (0.00-0.50); Eosinophils % (auto) 3.9 %; Hematocrit (blood only) 28.4 % (37.0-47.0); Hemoglobin 9.2 g/dl (12.0-16.0); Immature Granulocytes # (auto) 0.04 K/uL (0.01-0.20); Immature Granulocytes % (auto) 0.5 %; Lymphocytes # (auto) 0.44 K/uL (1.20-3.40); Lymphocytes % (auto) 5.2 %; Mean Corpuscular Hgb Conc 32.4 g/dL (32.0-36.0); Mean Corpuscular Volume 89.6 fL (80.0-100.0); Mean Platelet Volume 9.9 fL (9.4-12.4); Monocytes # (auto) 0.75 K/uL (0.11-0.59); Monocytes % (auto) 8.8 %; Neutrophils # (auto) 6.89 K/uL (1.40-6.50); Neutrophils % (auto) 80.5 %; Platelet Count 301 K/uL (130-400); RDW Coefficient of Variation 13.6 % (11.5-14.5); RDW Standard Deviation 44.8 fL (36.4-46.3); Red Blood Count 3.17 M/uL (4.20-5.40); White Blood Count 8.54 K/ul (4.8-10.8)
[2023-11-09 06:25] LABS: Base Excess ABG -1.8 mEq/L (-9-1.8); HCO3 ABG 24 mmol/L (19-24); Oxygen Saturation ABG 94.2 % (90-95); PCO2 ABG 42 mmHg (35-46); PO2 ABG 66 mmHg (80-95); pH ABG 7.36 (7.35-7.45)
[2023-11-09 06:26] LABS: Allen Test Pos (Pos)
--- NOTE | 2023-11-09 06:33 | XRay Report ---
XR chest 1V portable CLINICAL HISTORY: Shortness of breath. COMPARISON STUDY: Chest radiograph November 05, 2023. Chest CT June 16, 2022. FINDINGS: There is no pneumothorax. Small bilateral pleural effusions have increased in size. Bibasil ar opacities have developed. Pulmonary edema has developed. Cardiomegaly is unchanged. A hiatal herni a is again noted. Bilateral hilar enlargement is due to dilatation of the central pulmonary arteries. IMPRESSION: 1. Cardiomegaly with interval development of pulmonary edema. 2. Increase in size of small bilateral pleural effusions. Associated bibasilar opacities favor atelec tasis. ACT 112: Negative or not required by law. Electronically signed by: Roberto Herrera M.D. 11/09/2023 6:32 AM
[2023-11-09] MEDS: amLODIPine BESYLATE 5 MG TAB PO STA (06:38)
[2023-11-09] MEDS: NITROGLYCERIN SL 0.4 MG/TAB TAB SL STA (06:40)
[2023-11-09 06:41] LABS: BUN Creatinine Ratio 27.4 (10-20); Calcium 9.6 mg/dl (8.6-10.3); Creatinine Clr Calc Pharmacy 18.5 ml/min; Est GFR (African American) 26.5 ml/min; Est GFR (Non-African American) 22.9 ml/min; Magnesium 2.1 mg/dl (1.7-2.4); Potassium 4.5 mmol/L (3.5-5.1)
[2023-11-09] MEDS ORDERED: oxyCODONE HCL IR 5 MG TAB (IMMEDIATE RELEASE) PO PRN (06:43)
[2023-11-09 06:52] LABS: Partial Thromboplastin Ratio 1.1; Partial Thromboplastin Time 31 Seconds (21-31)
[2023-11-09 07:15] LABS: Troponin I High Sensitivity 167.6 pg/ml (0-14)
[2023-11-09] MEDS: MoRPHine SULFATE 2 MG/ML CARP IV PRN (07:22)
--- NOTE | 2023-11-09 07:28 | Communication Note ---
Date of Service: November 09, 2023 530 AM Patient with increased SOB/wheezing symptoms. O2 sats 90s on 4 L as per RN. Chest x-ray as per my interpretation increased congestion, bilateral effusions AP Hypoxemic respiratory failure secondary to decompensated heart failure Supplemental O2 Check ABG IV Lasix 1 dose now 6:30 AM Patient with substernal pain going to her shoulders. SBP 180s. Discomfort relieved by nitroglycerin as per RN. EKG as per my interpretation rate 90, LAD, LAFB, T wave abnormalities, ST depression lateral leads AP Chest pain Uncontrolled hypertension Decompensated heart failure Rule out ACS given nitro relief History CAD Add low-dose beta-torrie to BP regimen (Coreg stopped during recent confinement due to bradycardia) Follow troponin N.p.o. until patient seen by cardiology in anticipation of ischemic workup if warranted
[2023-11-09] MEDS: hydrALAZINE HCL 20 MG/ML VIAL IV STA (07:46)
[2023-11-09] MEDS: NITROGLYCERIN 2% OINTMENT 30GM TUBE EXT SCH (07:53)
[2023-11-09] MEDS: METOPROLOL TARTRATE 25 MG TAB PO SCH (08:36)
--- NOTE | 2023-11-09 11:15 | Cardiology Progress Note ---
Date of Service November 09, 2023 Assessment & Plan (1) Insomnia: (2) Chronic heart failure with preserved ejection fraction (HFpEF): (3) Aortic stenosis: (4) Coronary artery disease: (5) Elevated troponin: (6) Hypertension: Plan IMPRESSION: Medically complex 78 year old female with complex valvular heart disease, CAD (PCI to LM 07/2022), and diastolic CHF. Cardiac catheterization performed 1 month ago demonstrated patent left main stent and mild to moderate coronary atherosclerosis without obstruction Moderate to borderline severe aortic stenosis present with severe pulmonary hypertension Postoperative course complicated by acute renal insufficiency with contrast, ARB Presented with multitude of complaints including predominantly insomnia on current presentation but since hospitalization has developed worsening shortness of breath labile heart rate and blood pressure Carvedilol recently due to bradycardia last admission Last night symptoms of chest pressure with chronic troponin elevation. Elevated blood pressure and heart rate Chest x-ray with increased pulmonary vasculature treated with IV furosemide, topical nitro paste PLAN: Will treat hypertension and hypertensive urgency. Increase diuretics though patient very volume dependent from renal vascular standpoint and past attempts resulted in acute renal insufficiency. Suspect will again Will resume beta-torrie with metoprolol succinate 12.5 mg twice per day Increase hydralazine to 75 mg 4 times per day Increase oral nitrates, isosorbide and nitrate 40 mg 3 times daily Continue topical nitrates but may remove as blood pressure improves Patient very brittle from multiple aspects including valvular heart disease and renal vascular disease If discomfort recurs would consider IV morphine for distress CODE STATUS should be readdressed I spent a total of 40 minutes on the date of service in preparation, delivery, and documentation of the care provided to the patient excluding any time spent in the performance of separately billed services. This chart was completed in part utilizing Speech Voice Recognition Software. Grammatical errors, random word insertions, pronoun errors, and incomplete sentences are an occasional consequence of this system due to software limitations, ambient noise, and hardware issues. Any formal questions or concerns about the content, text, or information contained within the body of this dictation should be directly addressed to the provider for clarification. Admission and Anticipated Discharge Date Admission Date: November 05, 2023 Subjective Patient seen and examined, chart, medications, telemetry reviewed Events of prior evening noted More agitation and dyspnea overnight with elevated blood pressure and heart rate Chest x-ray with increasing pulmonary vasculature and pleural effusions No productive cough Treated with nitroglycerin for chest pain and chest tightness. Review of Systems Review of Systems: All systems reviewed & are unremarkable except as noted in Subjective Physical Exam Constitutional: + ill appearing and + thin; no acute dis tress Neck: trachea midline Respiratory: no respiratory distress, no labored breathing, no cough and not tachypneic Auscultation: + diminished lung sounds and + rales (Basilar); no crackles, no rhonchi and no wheezes Cardiovascular: Rate/Rhythm: regular rate and regular rhythm Heart Sounds: normal S1, normal S2 and + murmur (2/6 systolic ) Vessels: dorsalis pedis pulses present; no JVD Extremities: + edema (Trace) Gastrointestinal (Abdomen): normal bowel sounds, soft, nontender, no hepatosplenomegaly Skin: no rashes, warm and dry Psychiatric: A+Ox3, euthymic affect Results & Data Vital Signs (Past 12 Hours) Vital Signs Temp Pulse Pulse Resp BP BP Pulse Ox 11/09/23 08:08 36.6 C 97 H 19 161/57 H 96 11/09/23 07:30 87 11/09/23 07:30 11/09/23 07:15 36.6 C 92 H 20 187/56 H 95 11/09/23 06:45 90 24 158/62 H 94 11/09/23 06:37 89 22 171/54 H 91 11/09/23 06:29 90 189/64 H 11/09/23 05:41 84 22 97 11/09/23 02:45 36.8 C 88 16 183/62 H 94 O2 Del Method O2 Flow Rate 11/09/23 08:08 Nasal Cannula 5 11/09/23 07:30 11/09/23 07:30 Nasal Cannula 5 11/09/23 07:15 Nasal Cannula 5 11/09/23 06:45 Nasal Cannula 4 11/09/23 06:37 Nasal Cannula 4 11/09/23 06:29 11/09/23 05:41 Nasal Cannula 4 11/09/23 02:45 Nasal Cannula 2 Laboratory Results Laboratory Results - last 24 hr 11/09/23 11/09/23 06:03 09:18 WBC 8.54 RBC 3.17 L Hgb 9.2 L Hct 28.4 L MCV 89.6 MCH 29.0 MCHC 32.4 RDW Std Deviation 44.8 RDW Coeff of Breanne 13.6 Plt Count 301 MPV 9.9 Immature Gran % (Auto) 0.5 Neut % (Auto) 80.5 Lymph % (Auto) 5.2 [place] % (Auto) 8.8 Eos % (Auto) 3.9 Baso % (Auto) 1.1 Neut # (Auto) 6.89 H Lymph # (Auto) 0.44 L [place] # (Auto) 0.75 H Eos # (Auto) 0.33 Baso # (Auto) 0.09 Immature Gran # (Auto) 0.04 APTT 31 PTT Ratio 1.1 ABG pH 7.36 ABG pCO2 42 ABG pO2 66 L ABG HCO3 24 ABG O2 Saturation 94.2 ABG Base Excess -1.8 Nathan Test Pos Oxygen Given 2L Sodium 133 L Potassium 4.5 Chloride 102 Carbon Dioxide 23 Anion Gap 8 BUN 55 H Creatinine 2.01 H Est Cr Clr Drug Dosing 18.5 Est GFR ( Amer) 26.5 Est GFR (Non-Af Amer) 22.9 BUN/Creatinine Ratio 27.4 H Glucose 130 H Calcium 9.6 Magnesium 2.1 Troponin I High Sens 167.6 H* 177.3 H* Diagnostic Findings Cardiac catheterization 10/11/2023 Left main coronary stent patent Mild mid left anterior descending and proximal left circumflex, mild to moderate right coronary stenoses. No obstructive disease Moderate aortic stenosis Systolic hypertension with elevated left ventricular end-diastolic pressure Severe pulmonary hypertension (1) Insomnia Insomnia type: unspecified Qualified Code(s): G47.00 - Insomnia, unspecified (4) Coronary artery disease Coronary Disease-Associated Artery/Lesion type: [place] artery [place] vs. transplanted heart: [place] heart Associated angina: with unspecified form of angina Qualified Code(s): I25.119 - Atherosclerotic heart disease of [place] coronary artery with unspecified angina pectoris (6) Hypertension Hypertension type: primary hypertension Qualified Code(s): I10 - Essential (primary) hypertension
[2023-11-09] MEDS: ISOSORBIDE DINITRATE 20 MG TAB PO SCH (12:10)
[2023-11-09] MEDS: METOPROLOL SUCC 25MG EXT REL TAB PO SCH (12:10)
[2023-11-09] MEDS: hydrALAZINE HCL 25 MG TAB PO SCH (12:10)
--- NOTE | 2023-11-09 15:58 | Hospitalist Progress Note ---
Date of Service November 09, 2023 Assessment & Plan (1) Hypertensive urgency: (2) Chronic diastolic CHF (congestive heart failure): (3) Aortic stenosis: (4) CKD (chronic kidney disease): (5) Insomnia: Plan Medically complex 78-year-old female with complex valvular heart disease, CAD s/p PCI 07/2022, chronic diastolic CHF, pulmonary hypertension, moderate to severe aortic valve stenosis, hypertension, carotid stenosis, CKD 4, Hcawla's esophagus without dysplasia, GERD, B12 deficiency, dysphagia, esophageal strictures,chronic sialoadenitis, who lives alone and ambulates with a cane presented to the ED with insomnia for 4-5 days [employer]. Hypertensive urgency- Medications uptitrated by cardio. Now HLZ 75 mg qid along with isordil 40 mg tid along with norvasc 10 mg daily and low dose toprol 12.5 bid. Diuretics also uptitrated. Also on topical nitrates- to be removed when BP improves. Avoid LINDEN/ARB's due to renal impairment and aortic stenosis. Chest pain- multiple overnight episodes improved with NTG. Discussed with cardio. Trop chronically elevated and flat trend, EKG with no acute changes, recent cath a month ago with patent left main stent and mild-mod coronary atherosclerosis without obstruction. Plan as above. If discomfort recurs, consider iv morphine per cardio. Now on ASA, statin, BB and nitrates. Chronic diastolic CHF w acute exacerbation- CXR with vascular congestion and increasing effusion. Diuretics increased per cardio. Will follow clinically and labs. Moderate aortic stenosis-echo reviewed. Cardiology recommended against LINDEN/ARB's. Recommend outpatient follow-up with valve clinic Dr. Son in November. CKD4 -creatinine overall stable. Monitor renal function with diuresis and labile BP. Chronic back pain-PDMP reviewed. Since patient has been on [place] 10-325 twice daily, consistently refilled every month but has not been getting it here. Continue oxycodone 5 twice daily along with Tylenol 3 times daily for pain relief. Will have Lidoderm patch. Can try Cymbalta if pain persistent Constipation-started on bowel regimen. Will follow. GERD/hiatal hernia, history of esophageal strictures, esophageal dysmotility disorder- On PPI and maalox Chronic anemia-hemoglobin close to 9. Stable. Insomnia-ongoing issue. Psychiatry recommendations reviewed. Now on remeron and ambien. Will continue for now. DVT prophylaxis-subcu heparin Disposition- TBD. pending medical stabilty Time spent-approximately 50 minutes Admission and Anticipated Discharge Date Admission Date: November 05, 2023 Subjective Patient was seen and examined at bedside. Overnight events noted. Had chest pain episodes overnight and received 4 SL NG and stated 4th one seemed to help the CP. Also had SOB and hypertensive urgency. CXR showed pulmonary vascular congestion. Also stated that ambien helped her sleep only couple hrs. Review of Systems Review of Systems: All systems reviewed & are unremarkable except as noted in Subjective Physical Exam Physical Exam: General: Lying in bed, not in acute distress, on NC HEENT: JAYLEN, MMM Chest: Decreased breath sounds with rales CVS: Regular rate and rhythm, normal heart sounds, systolic murmur Abdomen: Soft, non tender, not distended, normal bowel sounds Neuro: Awake, alert, oriented, conversing well, non focal Extremities: Trace pedal edema Psych: Anxious, upset Results & Data Results & Data Vital Signs (Past 12 Hours) Vital Signs Temp Pulse Pulse Resp BP BP Pulse Ox 11/09/23 15:27 67 11/09/23 14:18 146/56 H 11/09/23 11:51 36.8 C 70 19 148/44 H 94 11/09/23 08:08 36.6 C 97 H 19 161/57 H 96 11/09/23 07:30 87 11/09/23 07:30 11/09/23 07:15 36.6 C 92 H 20 187/56 H 95 11/09/23 06:45 90 24 158/62 H 94 11/09/23 06:37 89 22 171/54 H 91 11/09/23 06:29 90 189/64 H 11/09/23 05:41 84 22 97 O2 Del Method O2 Flow Rate 11/09/23 15:27 11/09/23 14:18 11/09/23 11:51 Nasal Cannula 5 11/09/23 08:08 Nasal Cannula 5 11/09/23 07:30 11/09/23 07:30 Nasal Cannula 5 11/09/23 07:15 Nasal Cannula 5 11/09/23 06:45 Nasal Cannula 4 11/09/23 06:37 Nasal Cannula 4 11/09/23 06:29 11/09/23 05:41 Nasal Cannula 4 (3) Aortic stenosis Cardiac valve disease etiology: nonrheumatic Qualified Code(s): I35.0 - Nonrheumatic aortic (valve) stenosis (5) Insomnia Insomnia type: unspecified Qualified Code(s): G47.00 - Insomnia, unspecified
--- NOTE | 2023-11-10 05:59 | Electrocardiogram Report ---
Test Reason : Blood Pressure : / mmHG Vent. Rate : 093 BPM Atrial Rate : 093 BPM P-R Int : 168 ms QRS Dur : 108 ms QT Int : 368 ms P-R-T Axes : 071 -28 105 degrees QTc Int : 457 ms Poor data quality, interpretation may be adversely affected Sinus rhythm with occasional Premature ventricular complexes Minimal voltage criteria for LVH, may be normal variant Abnormal ECG When compared with ECG of 07-NOV-2023 05:51, Premature ventricular complexes are now Present Confirmed by Philipp Shannon ([id number]) on 11/10/2023 5:59:41 AM Referred By: REFERRED SELF Confirmed By:Wander Shannon
--- NOTE | 2023-11-10 06:17 | Electrocardiogram Report ---
Test Reason : Blood Pressure : / mmHG Vent. Rate : 086 BPM Atrial Rate : 086 BPM P-R Int : 220 ms QRS Dur : 122 ms QT Int : 382 ms P-R-T Axes : 090 -21 110 degrees QTc Int : 457 ms Sinus rhythm with 1st degree A-V block Non-specific intra-ventricular conduction delay Abnormal ECG When compared with ECG of 09-NOV-2023 06:17, (unconfirmed) Premature ventricular complexes are no longer Present ID interval has increased ST no longer depressed in Lateral leads Confirmed by Philipp Shannon ([id number]) on 11/10/2023 6:17:00 AM Referred By: REFERRED SELF Confirmed By:Wander Shannon
[2023-11-10 06:25] LABS: BUN Creatinine Ratio 29.1 (10-20); Calcium 9.4 mg/dl (8.6-10.3); Creatinine Clr Calc Pharmacy 15.9 ml/min; Magnesium 2.2 mg/dl (1.7-2.4); Potassium 4.9 mmol/L (3.5-5.1)
[2023-11-10] MEDS: amLODIPine BESYLATE 5 MG TAB PO SCH (08:32)
--- NOTE | 2023-11-10 10:06 | Cardiology Progress Note ---
Date of Service November 10, 2023 Assessment & Plan (1) Insomnia: (2) Chronic heart failure with preserved ejection fraction (HFpEF): (3) Aortic stenosis: (4) Coronary artery disease: (5) Elevated troponin: (6) Hypertension: (7) Severe pulmonary hypertension: Plan Impression: Medically complex 78 year old female with complex valvular heart disease, CAD (PCI to LM 07/2022), and diastolic CHF. Cardiac catheterization performed 1 month ago demonstrated patent left main stent and mild to moderate coronary atherosclerosis without obstruction Moderate to borderline severe aortic stenosis present with severe pulmonary hypertension Postoperative course complicated by acute renal insufficiency with contrast and ARB Presented with multitude of complaints including predominantly insomnia on current presentation but since hospitalization has developed worsening shortness of breath labile heart rate and blood pressure Carvedilol recently d/c due to bradycardia last admission Last night symptoms of chest pressure with chronic troponin elevation. Elevated blood pressure and heart rate Chest x-ray with increased pulmonary vasculature treated with IV furosemide, topical nitro paste 11/09/2023: Will treat hypertension and hypertensive urgency. Increase diuretics though patient very volume dependent from renal vascular standpoint and past attempts resulted in acute renal insufficiency. Suspect will again Will resume beta-torrie with metoprolol succinate 12.5 mg twice per day Increase hydralazine to 75 mg 4 times per day Increase oral nitrates, isosorbide and nitrate 40 mg 3 times daily Continue topical nitrates but may remove as blood pressure improves Patient very brittle from multiple aspects including valvular heart disease and renal vascular disease If discomfort recurs would consider IV morphine for distress CODE STATUS should be readdressed 11/10/23: -Patient BP remains elevated, but improved some. Recommend lenient BP control. Caution with afterload reduction as she is volume dependent due to mod-severe aortic stenosis. -BP goal <140/80 -Continue Hydralazine, Amlodipine, Isosorbide Dinitrate -Continue PO Torsemide 10 mg daily, with 1 extra tablet MWF. Patient intolerant to higher doses of diuretics resulting in SHEA. -No I&O charted overnight. -Sodium level improved from yesterday 133->135 -Continue Metoprolol Succinate 12.5 mg BID -Continue Aspirin 81 mg daily. -Please document accurate I&Os -Monitor and replace electrolytes as needed. (Recommend K > 4.0 & Mag > 2.0) -Please record daily weights -2L fluid restriction -2 gm sodium restriction -Encourage patient to elevate lower extremities throughout the day. Case discussed with Dr. Hardin I spent a total of 50 minutes on the date of service in preparation, delivery, and documentation of the care provided to this patient, excluding any time spent in the performance of separately billed services. DENIA Hoyos Department of Cardiology, [facility] This chart was completed in part utilizing Speech Voice Recognition Software. Grammatical errors, random word insertions, pronoun errors, and incomplete sentences are an occasional consequence of this system due to software limitations, ambient noise, and hardware issues. Any formal questions or concerns about the content, text, or information contained within the body of this dictation should be directly addressed to the provider for clarification. Admission and Anticipated Discharge Date Admission Date: November 05, 2023 Supervising Physician Co-Signing Physician Notes I have reviewed the advanced practitioner's documentation on the date of service referenced in note, and I agree with, and take responsibility for the plan of care. I spent a total of [20] minutes coordinating, documenting, and providing care for this patient excluding time spent in the performance of separately billed services or time spent by another provider. Subjective Patient reports not sleeping overnight. She does have a history of insomnia. Notes shortness of breath and is currently wearing 5LNC. Does not require supplemental oxygen at home. No acute events noted overnight. Review of Systems Review of Systems: All systems reviewed & are unremarkable except as noted in HPI & below Physical Exam Constitutional: well nourished, + ill appearing and + thin; no acute distress Neck: normal visual inspection and trachea midline Respiratory: normal respiratory effort; no respiratory distress, no labored breathing, no cough and not tachypneic Auscultation: lungs clear to auscultation bilaterally, + diminished lung sounds and + rales (Basilar); no crackles, no rhonchi and no wheezes Cardiovascular: Rate/Rhythm: regular rate, regular rhythm and + bradycardic Heart Sounds: normal S1, normal S2 and + murmur (2/6 systolic ) Vessels: + JVD and dorsalis pedis pulses present Extremities: + edema (Trace) Gastrointestinal (Abdomen): normal bowel sounds, soft, nontender, no hepatosplenomegaly Skin: no rashes, warm and dry Psychiatric: A+Ox3, euthymic affect Results & Data Vital Signs (Past 12 Hours) Vital Signs Temp Pulse Pulse Resp BP BP Pulse Ox 11/10/23 08:01 37.1 C 76 16 148/54 H 94 11/10/23 02:56 36.9 C 74 16 152/50 H 96 11/09/23 23:10 36.9 C 69 18 146/48 H 95 11/09/23 21:56 74 O2 Del Method O2 Flow Rate 11/10/23 08:01 Nasal Cannula 5 11/10/23 02:56 Nasal Cannula 5 11/09/23 23:10 Nasal Cannula 5 11/09/23 21:56 Laboratory Results Cardiac Enzymes 11/09/23 Range/Units 09:18 Troponin I High Sens 177.3 H* (0-14) pg/ml Comprehensive Metabolic Panel 11/10/23 Range/Units 05:40 Sodium 135 L (136-145) mmol/L Potassium 4.9 (3.5-5.1) mmol/L Chloride 102 (98-107) mmol/L Carbon Dioxide 25 (21-32) mmol/L BUN 68 H (6-23) mg/dl Creatinine 2.34 H D (0.6-1.2) mg/dl Glucose 101 H (70-99(Fasting)) mg/dl Calcium 9.4 (8.6-10.3) mg/dl Intake and Output 11/09/23 11/10/23 11/10/23 22:59 06:59 14:59 Intake Total 200 / 620 100 / 620 Balance 200 / 520 100 / 520 Intake: Oral 200 / 620 100 / 620 Other: # Unmeasured Voids 1 1 Weight 61.7 kg Weight Measurement Method Standing Scale Diagnostic Findings Telemetry Reviewed 11/10/23: NSR 70s EKG 11/09/23 NSR 1 AV Block 86 bpm Echo 11/06/23 EF 55-60% Moderate concentric LVH Left atrium severely dilated Aortic valve leaflets are calcfied and restricted in mobility Moderate-Severe Moderate-Severe Mitral annular calcification RVSP elevated 40-50 mmHg Cardiac Catheterization 10/11/2023 @ [facility] [place] Left main coronary stent patent Mild mid left anterior descending and proximal left circumflex, mild to moderate right coronary stenoses. No obstructive disease Moderate aortic stenosis Systolic hypertension with elevated left ventricular end-diastolic pressure Severe pulmonary hypertension (1) Insomnia Insomnia type: unspecified Qualified Code(s): G47.00 - Insomnia, unspecified (3) Aortic stenosis Cardiac valve disease etiology: etiology unspecified Qualified Code(s): I35.0 - Nonrheumatic aortic (valve) stenosis (4) Coronary artery disease Associated angina: with unspecified form of angina Coronary Disease- Associated Artery/Lesion type: [place] artery [place] vs. transplanted heart: [place] heart Qualified Code(s): I25.119 - Atherosclerotic heart disease of [place] coronary artery with unspecified angina pectoris (6) Hypertension Hypertension type: primary hypertension Qualified Code(s): I10 - Essential (primary) hypertension
--- NOTE | 2023-11-10 12:28 | Hospitalist Progress Note ---
Date of Service November 10, 2023 Assessment & Plan (1) Hypertensive urgency: (2) Chronic diastolic CHF (congestive heart failure): (3) Aortic stenosis: (4) CKD (chronic kidney disease): (5) Insomnia: Plan Medically complex 78-year-old female with complex valvular heart disease, CAD s/p PCI 07/2022, chronic diastolic CHF, pulmonary hypertension, moderate to severe aortic valve stenosis, hypertension, carotid stenosis, CKD 4, 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, GERD, B12 deficiency, dysphagia, esophageal strictures,chronic sialoadenitis, who lives alone and ambulates with a cane presented to the ED with insomnia for 4-5 days [employer]. Hypertensive urgency- Medications uptitrated by cardio and BP now stable. Now HLZ 75 mg qid along with isordil 40 mg tid along with norvasc 10 mg daily and low dose toprol 12.5 bid. Continue torsemide. Also on topical nitrates- to be removed when BP improves. Avoid LINDEN/ARB's due to renal impairment and aortic stenosis. Chest pain- no further recurrences. Cardio following. Trop chronically elevated and flat trend, EKG with no acute changes, recent cath a month ago with patent left main stent and mild-mod coronary atherosclerosis without obstruction. Plan as above. If discomfort recurs, consider iv morphine per cardio. Now on ASA, statin, BB and nitrates. Chronic diastolic CHF w acute exacerbation- CXR with vascular congestion and increasing effusion. On diuretics per cardio. Will follow clinically and labs. Moderate aortic stenosis-echo reviewed. Cardiology recommended against LINDEN/ARB's. Recommend outpatient follow-up with valve clinic Dr. Son in November. CKD4 -creatinine uptrending. Will monitor renal function with diuresis. Chronic back pain-PDMP reviewed. Since patient has been on [place] 10-325 twice daily, consistently refilled every month but has not been getting it here. Continue oxycodone 5 twice daily along with Tylenol 3 times daily for pain relief. Continue Lidoderm patch. Can try Cymbalta if pain persistent Constipation-continue bowel regimen. Will try suppository as reports no BM yet. GERD/hiatal hernia, history of esophageal strictures, esophageal dysmotility disorder- On PPI and maalox Chronic anemia-hemoglobin close to 9. Stable. Insomnia-ongoing issue. Psychiatry recommendations reviewed. Now on remeron and ambien. Will continue for now. ?NEENA- Oximetry suggestive of sleep apnea- 10 desaturation events noted. Will need sleep study as OP. DVT prophylaxis-subcu heparin Disposition- TBD. pending medical stability. Oximetry suggestive of sleep apnea. Will need sleep study as OP. Updated family at bedside Time spent-approximately 50 minutes Admission and Anticipated Discharge Date Admission Date: November 05, 2023 Subjective Patient seen and examined at bedside. She feels somewhat better today. Had some sleep overnight. Breathing is stable. Burning sensation better with Maalox. Denies any BM since admission. Appetite still poor- states she gets lots of gas with the food here and unable to get the way she eats at home. Family at bedside. Review of Systems Review of Systems: All systems reviewed & are unremarkable except as noted in Subjective Physical Exam Physical Exam: General: Lying in bed, not in acute distress, on NC HEENT: JAY[place], MMM Chest: Decreased breath sounds with rales CVS: Regular rate and rhythm, normal heart sounds, systolic murmur Abdomen: Soft, non tender, not distended, normal bowel sounds Neuro: Awake, alert, oriented, conversing well, non focal Extremities: Trace pedal edema Psych: Calm, cooperative Results & Data Results & Data Vital Signs (Past 12 Hours) Vital Signs Temp Pulse Pulse Resp BP BP Pulse Ox 11/10/23 11:33 37.1 C 65 18 147/60 H 96 11/10/23 10:10 70 11/10/23 10:10 11/10/23 08:01 37.1 C 76 16 148/54 H 94 11/10/23 02:56 36.9 C 74 16 152/50 H 96 O2 Del Method O2 Flow Rate 11/10/23 11:33 Nasal Cannula 5 11/10/23 10:10 11/10/23 10:10 Nasal Cannula 5 11/10/23 08:01 Nasal Cannula 5 11/10/23 02:56 Nasal Cannula 5 Laboratory Results BMP 11/10/23 05:40 Sodium 135 L Potassium 4.9 Chloride 102 Carbon Dioxide 25 BUN 68 H Creatinine 2.34 H D Glucose 101 H Calcium 9.4 (3) Aortic stenosis Cardiac valve disease etiology: nonrheumatic Qualified Code(s): I35.0 - Nonrheumatic aortic (valve) stenosis (5) Insomnia Insomnia type: unspecified Qualified Code(s): G47.00 - Insomnia, unspecified
[2023-11-10] MEDS: bisacodyL 10 MG SUPP PR ONE ×2 (14:38→14:55)
[2023-11-11 07:14] LABS: BUN Creatinine Ratio 32.9 (10-20); Creatinine Clr Calc Pharmacy 16.9 ml/min; Est GFR (African American) 23.9 ml/min; Est GFR (Non-African American) 20.6 ml/min
[2023-11-11] MEDS: PSYLLIUM or GUAR GUM FIBER 4GM PACKET PO SCH (09:25)
--- NOTE | 2023-11-11 10:50 | Cardiology Progress Note ---
Date of Service November 11, 2023 Assessment & Plan (1) Insomnia: (2) Chronic heart failure with preserved ejection fraction (HFpEF): (3) Aortic stenosis: (4) Coronary artery disease: (5) Elevated troponin: (6) Hypertension: (7) Severe pulmonary hypertension: Plan Impression: Medically complex 78 year old female with complex valvular heart disease, CAD (PCI to LM 07/2022), and diastolic CHF. Cardiac catheterization performed 1 month ago demonstrated patent left main stent and mild to moderate coronary atherosclerosis without obstruction Moderate to borderline severe aortic stenosis present with severe pulmonary hypertension Postoperative course complicated by acute renal insufficiency with contrast and ARB Presented with multitude of complaints including predominantly insomnia on current presentation but since hospitalization has developed worsening shortness of breath labile heart rate and blood pressure Carvedilol recently d/c due to bradycardia last admission Last night symptoms of chest pressure with chronic troponin elevation. Elevated blood pressure and heart rate Chest x-ray with increased pulmonary vasculature treated with IV furosemide, topical nitro paste 11/09/2023: Will treat hypertension and hypertensive urgency. Increase diuretics though patient very volume dependent from renal vascular standpoint and past attempts resulted in acute renal insufficiency. Suspect will again Will resume beta-torrie with metoprolol succinate 12.5 mg twice per day Increase hydralazine to 75 mg 4 times per day Increase oral nitrates, isosorbide and nitrate 40 mg 3 times daily Continue topical nitrates but may remove as blood pressure improves Patient very brittle from multiple aspects including valvular heart disease and renal vascular disease If discomfort recurs would consider IV morphine for distress CODE STATUS should be readdressed 11/10/23: -Patient BP remains elevated, but improved some. Recommend lenient BP control. Caution with afterload reduction as she is volume dependent due to mod-severe aortic stenosis. -BP goal <140/80 -Continue Hydralazine, Amlodipine, Isosorbide Dinitrate -Continue PO Torsemide 10 mg daily, with 1 extra tablet MWF. Patient intolerant to higher doses of diuretics resulting in SHEA. -No I&O charted overnight. -Sodium level improved from yesterday 133->135. Creatinine slowly improving as well. -Continue Metoprolol Succinate 12.5 mg BID -Continue Aspirin 81 mg daily. 11/11/2023: -Patient BP remains elevated, but improved some. Recommend lenient BP control. Caution with afterload reduction as she is volume dependent due to mod-severe aortic stenosis. -BP goal <140/80 -continue Metoprolol Succinate 12.5 mg BID -Continue hydralazine, amlodipine, and isosorbide dinitrate. Discontinue topical Nitro paste for BP. -Continue PO Torsemide 10 mg daily, with 1 extra tablet MWF. -Will give a one time dose of IV Lasix 80 mg. She is still volume overloaded. -Sodium continues to improved 135-> 136 -Patient is frail, physically deconditioned, and exhausted. She is not an ideal candidate for valve interventions. Even if her moderate-severe was addressed this will not change her severe pulmonary hypertension. -She does have an appt with [facility] with Dr. Son, but I feel cons ervative management may be in her best interest. -Palliative medicine consult placed to discuss goals of care. -Please document accurate I&Os -Monitor and replace electrolytes as needed. (Recommend K > 4.0 & Mag > 2.0) -Please record daily weights -2L fluid restriction -2 gm sodium restriction -Encourage patient to elevate lower extremities throughout the day. Case discussed with Dr. Hardin I spent a total of 50 minutes on the date of service in preparation, delivery, and documentation of the care provided to this patient, excluding any time spent in the performance of separately billed services. DENIA Hoyos Department of Cardiology, [facility] This chart was completed in part utilizing Speech Voice Recognition Software. Grammatical errors, random word insertions, pronoun errors, and incomplete sentences are an occasional consequence of this system due to software limitations, ambient noise, and hardware issues. Any formal questions or concerns about the content, text, or information contained within the body of this dictation should be directly addressed to the provider for clarification. Admission and Anticipated Discharge Date Admission Date: November 05, 2023 Supervising Physician Co-Signing Physician Notes I have reviewed the advanced practitioner's documentation on the date of service referenced in note, and I agree with, and take responsibility for the plan of care. 78 yr old with complex valvular heart disease, CAD left main 2022, heart failure with preserved ejection fraction, hypertension admitted with acute hypoxic respiratory failure, heart failure and hypertensive urgency , moderate to severe aortic valve stensis she continues to be sob and requiring oxygen NC 4 liters , attempt to reduce to 2 - saturations low so increased back to 4 she has bilateral crackles, has not been diuresing much one time dose of IV lasix today hopefully will help with diuresis and reduce oxygen requirements I spent a total of [20] minutes coordinating, documenting, and providing care for this patient excluding time spent in the performance of separately billed services or time spent by another provider. Subjective Patient did not sleep overnight. Supplemental oxygen 5LNC--> 3LNC Review of Systems Review of Systems: All systems reviewed & are unremarkable except as noted in HPI & below Physical Exam Constitutional: well nourished, + ill appearing and + thin; no acute distress Drowsy Neck: normal visual inspection and trachea midline Respiratory: normal respiratory effort; no respiratory distress, no labored breathing, no cough and not tachypneic Auscultation: lungs clear to auscultation bilaterally, + diminished lung sounds and + rales (Basilar); no crackles, no rhonchi and no wheezes Cardiovascular: Rate/Rhythm: regular rate, regular rhythm and + bradycardic Heart Sounds: normal S1, normal S2 and + murmur (2/6 systolic ) Vessels: + JVD and dorsalis pedis pulses present Extremities: + edema (Trace) Gastrointestinal (Abdomen): normal bowel sounds, soft, nontender, no hepatosplenomegaly Skin: no rashes, warm and dry Psychiatric: A+Ox3, euthymic affect Results & Data Vital Signs (Past 12 Hours) Vital Signs Temp Pulse Pulse Resp BP BP Pulse Ox 11/11/23 08:00 70 11/11/23 08:00 11/11/23 07:57 37.2 C 73 16 166/65 H 91 11/11/23 03:09 37.2 C 73 17 160/54 H 95 11/11/23 01:01 74 147/54 H 92 11/10/23 22:45 36.9 C 76 16 148/49 H 95 O2 Del Method O2 Flow Rate 11/11/23 08:00 11/11/23 08:00 Nasal Cannula 3 11/11/23 07:57 Nasal Cannula 3 11/11/23 03:09 Nasal Cannula 3 11/11/23 01:01 Nasal Cannula 2 11/10/23 22:45 Nasal Cannula 3 Laboratory Results Comprehensive Metabolic Panel 11/11/23 Range/Units 06:17 Sodium 136 (136-145) mmol/L Potassium 5.0 (3.5-5.1) mmol/L Chloride 103 (98-107) mmol/L Carbon Dioxide 25 (21-32) mmol/L BUN 72 H (6-23) mg/dl Creatinine 2.19 H (0.6-1.2) mg/dl Glucose 102 H (70-99(Fasting)) mg/dl Calcium 10.0 (8.6-10.3) mg/dl Intake and Output 11/10/23 11/11/23 11/11/23 22:59 06:59 14:59 Intake Total 150 / 270 0 / 270 Output Total 101 / 226 0 / 226 Balance 49 / 44 0 / 44 Intake: Oral 150 / 270 0 / 270 Output: Urine 100 / 225 0 / 225 # Bowel Movements Other: # Unmeasured Voids 1 Weight 60.7 kg Weight Measurement Method Standing Scale Diagnostic Findings Telemetry Reviewed 11/11/23: NSR 70s. PAT noted overnight 130s. EKG 11/09/23 NSR 1 AV Block 86 bpm Echo 11/06/23 EF 55-60% Moderate concentric LVH Left atrium severely dilated Aortic valve leaflets are calcfied and restricted in mobility Moderate-Severe Moderate-Severe Mitral annular calcification RVSP elevated 40-50 mmHg Cardiac Catheterization 10/11/2023 @ [facility] [place] Left main coronary stent patent Mild mid left anterior descending and proximal left circumflex, mild to moderate right coronary stenoses. No obstructive disease Moderate aortic stenosis Systolic hypertension with elevated left ventricular end-diastolic pressure Severe pulmonary hypertension (1) Insomnia Insomnia type: unspecified Qualified Code(s): G47.00 - Insomnia, unspecified (3) Aortic stenosis Cardiac valve disease etiology: etiology unspecified Qualified Code(s): I35.0 - Nonrheumatic aortic (valve) stenosis (4) Coronary artery disease Associated angina: with unspecified form of angina Coronary Disease- Associated Artery/Lesion type: [place] artery [place] vs. transplanted heart: [place] heart Qualified Code(s): I25.119 - Atherosclerotic heart disease of [place] coronary artery with unspecified angina pectoris (6) Hypertension Hypertension type: primary hypertension Qualified Code(s): I10 - Essential (primary) hypertension
--- NOTE | 2023-11-11 12:18 | Hospitalist Progress Note ---
Date of Service November 11, 2023 Assessment & Plan (1) Hypertensive urgency: (2) Chronic diastolic CHF (congestive heart failure): (3) Aortic stenosis: (4) CKD (chronic kidney disease): (5) Insomnia: Plan Medically complex 78-year-old female with complex valvular heart disease, CAD s/p PCI 07/2022, chronic diastolic CHF, pulmonary hypertension, moderate to severe aortic valve stenosis, hypertension, carotid stenosis, CKD 4, 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, GERD, B12 deficiency, dysphagia, esophageal strictures,chronic sialoadenitis, who lives alone and ambulates with a cane presented to the ED with insomnia for 4-5 days [employer]. Hypertensive urgency- Medications uptitrated by cardio and BP now stable. Now on HLZ 75 mg qid along with isordil 40 mg tid along with norvasc 10 mg daily and low dose toprol 12.5 bid. Continue torsemide. Also on topical nitrates- to be removed when BP improves. Avoid LINDEN/ARB's due to renal impairment and aortic stenosis. Chest pain- no further recurrences. Cardio following. Trop chronically elevated and flat trend, EKG with no acute changes, recent cath a month ago with patent left main stent and mild-mod coronary atherosclerosis without obstruction. Plan as above. If discomfort recurs, consider iv morphine per cardio. Now on ASA, statin, BB and nitrates. Chronic diastolic CHF w acute exacerbation- CXR with vascular congestion and increasing effusion. On diuretics per cardio. Will follow clinically and labs. Moderate aortic stenosis-echo reviewed. Cardiology recommended against LINDEN/ARB's. Recommend outpatient follow-up with valve clinic Dr. Son in November. CKD4 -creatinine now stable. Will monitor renal function with diuresis. Chronic back pain-PDMP reviewed. Since patient has been on [place] 10-325 twice daily, consistently refilled every month but has not been getting it here. Continue oxycodone 5 twice daily along with Tylenol 3 times daily for pain relief. Continue Lidoderm patch. Can try Cymbalta if pain persistent Constipation-continue bowel regimen. Will try suppository as reports no BM yet. GERD/hiatal hernia, history of esophageal strictures, esophageal dysmotility disorder- On PPI and maalox Chronic anemia-hemoglobin close to 9. Stable. Insomnia-ongoing issue. Psychiatry recommendations reviewed. Now on remeron and ambien. Will continue for now. ?NEENA- Oximetry suggestive of sleep apnea- 10 desaturation events noted. Will need sleep study as OP. Palliative consulted by cardio for GOC discussion DVT prophylaxis-subcu heparin Disposition- TBD. pending medical stability. Pending palliative discussion Updated family at bedside Time spent-approximately 50 minutes Admission and Anticipated Discharge Date Admission Date: November 05, 2023 Subjective Patient was seen and examined at bedside. She states she is exhausted due to not getting sleep. Asking to help her get sleep. Breathing about the same. Had BM with suppository yesterday. No fever, chills, N/V, CP. Review of Systems Review of Systems: All systems reviewed & are unremarkable except as noted in Subjective Physical Exam Physical Exam: General: Lying in bed, not in acute distress, on NC HEENT: JYALEN, MMM Chest: Decreased breath sounds with rales CVS: Regular rate and rhythm, normal heart sounds, systolic murmur Abdomen: Soft, non tender, not distended, normal bowel sounds Neuro: Awake, alert, oriented, conversing well, non focal Extremities: Trace pedal edema Psych: Calm, cooperative Results & Data Results & Data Vital Signs (Past 12 Hours) Vital Signs Temp Pulse Pulse Resp BP BP Pulse Ox 11/11/23 11:28 36.8 C 69 18 142/48 H 95 11/11/23 08:00 70 11/11/23 08:00 11/11/23 07:57 37.2 C 73 16 166/65 H 91 11/11/23 03:09 37.2 C 73 17 160/54 H 95 11/11/23 01:01 74 147/54 H 92 O2 Del Method O2 Flow Rate 11/11/23 11:28 Nasal Cannula 4 11/11/23 08:00 11/11/23 08:00 Nasal Cannula 3 11/11/23 07:57 Nasal Cannula 3 11/11/23 03:09 Nasal Cannula 3 11/11/23 01:01 Nasal Cannula 2 Laboratory Results BMP 11/11/23 06:17 Sodium 136 Potassium 5.0 Chloride 103 Carbon Dioxide 25 BUN 72 H Creatinine 2.19 H Glucose 102 H Calcium 10.0 (3) Aortic stenosis Cardiac valve disease etiology: nonrheumatic Qualified Code(s): I35.0 - Nonrheumatic aortic (valve) stenosis (5) Insomnia Insomnia type: unspecified Qualified Code(s): G47.00 - Insomnia, unspecified
[2023-11-11] MEDS: FUROSEMIDE 40 MG/4 ML VIAL IV ONE (15:03)
[2023-11-11] MEDS ORDERED: carvediloL 3.125 MG TAB PO SCH (17:00)
[2023-11-11] MEDS: METOPROLOL SUCC 25MG EXT REL TAB PO SCH (21:56)
[2023-11-11] MEDS: ZOLPIDEM TARTRATE 10 MG TAB PO SCH (21:59)
[2023-11-12] MEDS: METOPROLOL TARTRATE 1 MG/ML VIAL IV STA (02:47)
[2023-11-12 03:14] LABS: Basophils # (auto) 0.05 K/uL (0.00-0.20); Basophils % (auto) 0.7 %; Eosinophils # (auto) 0.45 K/uL (0.00-0.50); Eosinophils % (auto) 5.9 %; Hematocrit (blood only) 24.8 % (37.0-47.0); Hemoglobin 7.8 g/dl (12.0-16.0); Immature Granulocytes # (auto) 0.02 K/uL (0.01-0.20); Immature Granulocytes % (auto) 0.3 %; Lymphocytes # (auto) 0.43 K/uL (1.20-3.40); Lymphocytes % (auto) 5.6 %; Mean Corpuscular Hemoglobin 29.1 pg (25.0-34.0); Mean Corpuscular Hgb Conc 31.5 g/dL (32.0-36.0); Mean Corpuscular Volume 92.5 fL (80.0-100.0); Mean Platelet Volume 10.1 fL (9.4-12.4); Monocytes # (auto) 0.57 K/uL (0.11-0.59); Monocytes % (auto) 7.4 %; Neutrophils # (auto) 6.15 K/uL (1.40-6.50); Neutrophils % (auto) 80.1 %; Platelet Count 267 K/uL (130-400); RDW Standard Deviation 47.4 fL (36.4-46.3); Red Blood Count 2.68 M/uL (4.20-5.40); White Blood Count 7.67 K/ul (4.8-10.8)
[2023-11-12 03:20] LABS: BUN Creatinine Ratio 34.4 (10-20); Calcium 9.7 mg/dl (8.6-10.3); Creatinine Clr Calc Pharmacy 16.6 ml/min; Est GFR (African American) 23.2 ml/min; Est GFR (Non-African American) 20.1 ml/min; Magnesium 2.5 mg/dl (1.7-2.4); Potassium 4.9 mmol/L (3.5-5.1)
[2023-11-12 03:39] LABS: Ovalocytes 1+
[2023-11-12] MEDS: TORSEMIDE 20 MG TAB PO SCH (04:50)
[2023-11-12 06:26] LABS: Hematocrit (blood only) 26.4 % (37.0-47.0); Hemoglobin 8.2 g/dl (12.0-16.0)
--- NOTE | 2023-11-12 10:39 | Electrocardiogram Report ---
Test Reason : Blood Pressure : / mmHG Vent. Rate : 075 BPM Atrial Rate : 075 BPM P-R Int : 162 ms QRS Dur : 110 ms QT Int : 390 ms P-R-T Axes : 010 -27 093 degrees QTc Int : 435 ms Normal sinus rhythm Non-specific intra-ventricular conduction delay Abnormal ECG When compared with ECG of 09-NOV-2023 07:42, DC interval has decreased Confirmed by Ricky Ibanez ([id number]) on 11/12/2023 10:38:41 AM Referred By: REFERRED SELF Confirmed By:Ricky Ibanez
--- NOTE | 2023-11-12 11:13 | Cardiology Progress Note ---
Date of Service November 12, 2023 Assessment & Plan (1) Insomnia: (2) Chronic heart failure with preserved ejection fraction (HFpEF): (3) Aortic stenosis: (4) Coronary artery disease: (5) Elevated troponin: (6) Hypertension: (7) Severe pulmonary hypertension: Plan Impression: Medically complex 78 year old female with complex valvular heart disease, CAD (PCI to LM 07/2022), and diastolic CHF. Cardiac catheterization performed 1 month ago demonstrated patent left main stent and mild to moderate coronary atherosclerosis without obstruction Moderate to borderline severe aortic stenosis present with severe pulmonary hypertension Postoperative course complicated by acute renal insufficiency with contrast and ARB Presented with multitude of complaints including predominantly insomnia on current presentation but since hospitalization has developed worsening shortness of breath labile heart rate and blood pressure Carvedilol recently d/c due to bradycardia last admission Last night symptoms of chest pressure with chronic troponin elevation. Elevated blood pressure and heart rate Chest x-ray with increased pulmonary vasculature treated with IV furosemide, topical nitro paste 11/09/2023: Will treat hypertension and hypertensive urgency. Increase diuretics though patient very volume dependent from renal vascular standpoint and past attempts resulted in acute renal insufficiency. Suspect will again Will resume beta-torrie with metoprolol succinate 12.5 mg twice per day Increase hydralazine to 75 mg 4 times per day Increase oral nitrates, isosorbide and nitrate 40 mg 3 times daily Continue topical nitrates but may remove as blood pressure improves Patient very brittle from multiple aspects including valvular heart disease and renal vascular disease If discomfort recurs would consider IV morphine for distress CODE STATUS should be readdressed 11/10/23: -Patient BP remains elevated, but improved some. Recommend lenient BP control. Caution with afterload reduction as she is volume dependent due to mod-severe aortic stenosis. -BP goal <140/80 -Continue Hydralazine, Amlodipine, Isosorbide Dinitrate -Continue PO Torsemide 10 mg daily, with 1 extra tablet MWF. Patient intolerant to higher doses of diuretics resulting in SHEA. -No I&O charted overnight. -Sodium level improved from yesterday 133->135. Creatinine slowly improving as well. -Continue Metoprolol Succinate 12.5 mg BID -Continue Aspirin 81 mg daily. 11/11/2023: -Patient BP remains elevated, but improved some. Recommend lenient BP control. Caution with afterload reduction as she is volume dependent due to mod-severe aortic stenosis. -BP goal <140/80 -continue Metoprolol Succinate 12.5 mg BID -Continue hydralazine, amlodipine, and isosorbide dinitrate. Discontinue topical Nitro paste for BP. -Continue PO Torsemide 10 mg daily, with 1 extra tablet MWF. -Will give a one time dose of IV Lasix 80 mg. She is still volume overloaded. -Sodium continues to improved 135-> 136 -Patient is frail, physically deconditioned, and exhausted. She is not an ideal candidate for valve interventions. Even if her moderate-severe was addressed this will not change her severe pulmonary hypertension. -She does have an appt with [facility] with Dr. Son, but I feel cons ervative management may be in her best interest. -Palliative medicine consult placed to discuss goals of care. -Please document accurate I&Os -Monitor and replace electrolytes as needed. (Recommend K > 4.0 & Mag > 2.0) -Please record daily weights -2L fluid restriction -2 gm sodium restriction -Encourage patient to elevate lower extremities throughout the day. 11/12/2023 Patient is hemodynamically stable, marginally improved. Still a few crackles basilar received increased dose of torsemide this morning Will follow I's and O's cautiously given declining renal function. Consider additional dose of furosemide depending on clinical course Assessment and plan as outlined above. Suspect patient will require oxygen on discharge and will require assessment prior I spent a total of 30 minutes on the date of service in preparation, delivery, and documentation of the care provided to this patient, excluding any time spent in the performance of separately billed services. This chart was completed in part utilizing Speech Voice Recognition Software. Grammatical errors, random word insertions, pronoun errors, and incomplete sentences are an occasional consequence of this system due to software limitations, ambient noise, and hardware issues. Any formal questions or concerns about the content, text, or information contained within the body of this dictation should be directly addressed to the provider for clarification. Admission and Anticipated Discharge Date Admission Date: November 05, 2023 Subjective Patient seen and examined, chart, medications, telemetry reviewed Patient still complains of being uncomfortable difficulty sleeping. Respiratory status improved per patient Renal function stable Blood pressure appropriate Review of Systems Review of Systems: All systems reviewed & are unremarkable except as noted in Subjective Physical Exam Constitutional: well nourished, + ill appearing and + thin; no acute distress Neck: normal visual inspection and trachea midline Respiratory: normal respiratory effort; no respiratory distress, no labored breathing, no cough and not tachypneic Auscultation: lungs clear to auscultation bilaterally, + diminished lung sounds and + rales (Basilar); no crackles, no rhonchi and no wheezes Cardiovascular: Rate/Rhythm: regular rate, regular rhythm and + bradycardic Heart Sounds: normal S1, normal S2 and + murmur (2/6 systolic ) Vessels: dorsalis pedis pulses present; no JVD Extremities: + edema (Trace) Gastrointestinal (Abdomen): normal bowel sounds, soft, nontender, no hepatosplenomegaly Skin: no rashes, warm and dry Psychiatric: A+Ox3, euthymic affect Results & Data Vital Signs (Past 12 Hours) Vital Signs Temp Pulse Pulse Resp BP BP Pulse Ox 11/12/23 09:41 68 11/12/23 07:53 36.9 C 67 18 154/55 H 94 11/12/23 03:02 71 169/56 H 11/12/23 02:47 75 160/67 H 11/12/23 02:03 37.0 C 75 16 160/67 H 94 11/11/23 23:56 76 O2 Del Method O2 Flow Rate 11/12/23 09:41 11/12/23 07:53 Room Air 11/12/23 03:02 11/12/23 02:47 11/12/23 02:03 Nasal Cannula 4.0 11/11/23 23:56 Laboratory Results Laboratory Results - last 24 hr 11/12/23 11/12/23 02:41 05:49 WBC 7.67 RBC 2.68 L Hgb 7.8 L 8.2 L Hct 24.8 L 26.4 L MCV 92.5 MCH 29.1 MCHC 31.5 L RDW Std Deviation 47.4 H RDW Coeff of Breanne 14.0 Plt Count 267 MPV 10.1 Immature Gran % (Auto) 0.3 Neut % (Auto) 80.1 Lymph % (Auto) 5.6 [place] % (Auto) 7.4 Eos % (Auto) 5.9 Baso % (Auto) 0.7 Neut # (Auto) 6.15 Lymph # (Auto) 0.43 L [place] # (Auto) 0.57 Eos # (Auto) 0.45 Baso # (Auto) 0.05 Immature Gran # (Auto) 0.02 Ovalocytes 1+ Sodium 136 Potassium 4.9 Chloride 103 Carbon Dioxide 26 Anion Gap 7 BUN 77 H Creatinine 2.24 H Est Cr Clr Drug Dosing 16.6 Est GFR ( Amer) 23.2 Est GFR (Non-Af Amer) 20.1 BUN/Creatinine Ratio 34.4 H Glucose 115 H Calcium 9.7 Magnesium 2.5 H Blood Type O Positive Antibody Screen NEGATIVE (1) Insomnia Insomnia type: unspecified Qualified Code(s): G47.00 - Insomnia, unspecified (3) Aortic stenosis Cardiac valve disease etiology: etiology unspecified Qualified Code(s): I35.0 - Nonrheumatic aortic (valve) stenosis (4) Coronary artery disease Coronary Disease-Associated Artery/Lesion type: [place] artery [place] vs. transplanted heart: [place] heart Associated angina: with unspecified form of angina Qualified Code(s): I25.119 - Atherosclerotic heart disease of [place] coronary artery with unspecified angina pectoris (6) Hypertension Hypertension type: primary hypertension Qualified Code(s): I10 - Essential (primary) hypertension
--- NOTE | 2023-11-12 12:25 | Palliative Care Consultation ---
Date of Consultation November 12, 2023 Assessment & Plan (1) Declining performance status: (2) Dyspnea and respiratory abnormalities: (3) Generalized weakness: (4) Anxiety associated with depression: (5) Pedal edema: (6) Severe muscle deconditioning: (7) Advanced care planning/counseling discussion: Met with patient at bedside for a prolonged and detailed 45-minute [id number] advance care planning discussion. She has very limited insight into the nature of her illness. With some prompting she is able to acknowledge that she has heart failure. With further prompting she acknowledged that it is a progressive disease but then states that hers is not progressive, it was fixed with her medications. She is not able to report current symptoms other than to say she continues to feel sick, nothing is really helping, and nobody has really given her anything to make her feel better. She tells me she wants to go home. She does not wish to go to a shelter but has agreed [facility]. Her goal is still to return home from that facility. She tells me that she needs more help at home and it is getting harder to be home alone. She does not have any help or caregivers/family support. She asks why she has not been given any help at home and then states "if because I do not have any money." We discussed options for home health support including standard visiting nurse service and hospice. I reviewed the goals of hospice as a patient service and the goals of care; we discussed EOL trajectories and transitions taco the emotional impact of realizing mortality as a concrete reality from prior abstract considerations. Pt was reassured that no matter where they are along this trajectory, they are not alone - their medical team will remain by their side through their journey. Discussed the pros/cons of accepting help when especially weakened and distressed by pain-which would also help provide relief/decrease caregiver burden/strain. I provided education about the hospice benefit: an interdisciplinary program offered by nurses, nurses aides, social workers, chaplains and a medical assistant secretary for patients with a terminal condition and a life expectancy of less than 6 months. This is covered by Medicare at 100%/no out of pocket expense to patient and all meds/supplies needed by patient for the reason they are on hospice are paid for/covered by hospice. The goal is assure quality of life of the patient in their home setting (home, shelter, inpatient hospice setting) by providing symptoms management, psychosocial and spiritual support. However, they cannot offer 24 hours care and if the family is unable to provide that care, they will have to consider personal care with out of pocket cost vs. shelter placement. We discussed the goals of hospice as a patient service and the goals of care; we discussed EOL trajectories and transitions taco the emotional impact of realizing mortality as a concrete reality from prior abstract considerations. Pt was reassured that no matter where they are along this trajectory, they are not alone - their medical team will remain by their side through their journey. Discussed the pros/cons of accepting help when especially weakened and distressed by pain-which would also help provide relief/decrease caregiver burden/strain. I also attempted to discuss CODE STATUS with patient who refused to engage in further discussion. At the time of my attempt to review CODE STATUS with patient, phone call was sent through to her phone which she answered and then she began a prolonged conversation. My consultation was effectively ended with this call. (8) Palliative care by specialist: Provided overview of Palliative Medicine, a subspecialty that provides specialized medical care for people living with a serious illness by offering a focus on quality of life. Palliative Medicine is often conflated with hospice: I advised patient/family that Palliative and hospice can be partners but we are not the same. It is important to understand the difference so that we may be informed, and not afraid. Palliative Medicine works to improve QOL through reduction of symptom burden/more control over their illness, for both the patient and family. Palliative medicine clinicians are board certified, specially-trained and another member of the patient's medical care team. We often provide an extra layer of support because our care is based on the needs of the patient, not the prognosis; as such, it's appropriate at any age/advancing stage of a serious illness and can be provided along with curative treatment. Palliative Medicine clinicians are also trained in advanced communication methodologies, to facilitate complex discussions about advanced illness planning, which are needed to help assure that the treatment choices match the patient's goals, aka delivering Goal Concordant care. Finally, we discussed that hospice is a visiting nurse service that focuses on care delivered at the very end of life for patients with terminal illness, with life expectancy less than 6 month. Santiago Erickson has very limited insight into her illness and likely some element of denial as well. She has little to no additional family or caregiving support. She is interested in having more support in the home setting when she leaves the hospital. We discussed options for visiting nurse services and hospice, she expressed an interest in going home with hospice from the shelter. However, she was reluctant to discuss CODE STATUS and I did inform her that the likelihood would be that a no CODE STATUS would have to be agreed on before enrollment in hospice as hospice was not going to perform CPR in the event of a medical emergency given the philosophy of aiming to assure comfort through an end-of-life trajectory for serious or very advanced medical illness. She indicated she did not wish to talk about this at this time. She reiterated an interest in going home with hospice from the shelter but again did not wish to discuss CODE STATUS which I will reattempt discussion of tomorrow. I have updated the primary team. Thank you for allowing us to participate in the ongoing care of this patient. Please don't hesitate to call or page with any additional concerns. Dr. 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 Patient presented because of generalized weakness and insomnia. + elevated ca rdiac troponin more than baseline. Her ECG did show some more pronounced lateral T wave inversions and a millimeter of ST elevation in lead III. This was new from prior but the patient does not have any chest pain. Record review indicated that she has had a chronic elevation of her troponin. She was admitted for insomnia and weakness CT imaging of the head was ordered as she was complaining of an intermittent headache however she declined d/t her kyphosis related discomfort Georgina is seen bedside, she is sitting at the edge of her bed, there is no family present. She is in a folded tripod position with her head resting on her bedside table. She is slowly eating a turkey sandwich in this position. She is minimally interactive with me often refusing or declining to answer questions as I asked them. She will occasionally lift her head up to answer a question but then immediately put her head back down. She tells me she is weak and she is tired. Her breathing is problematic. She does not understand why these issues are persisting. She feels that she should have had some medication by now to improve these problems. Her insight into her overall illness appears to be somewhat limited. Allergies Allergy/AdvReac Type Severity Reaction Status Date / Time gabapentin AdvReac Intermediate cough Verified 11/05/23 19:27 oxycodone AdvReac Intermediate "makes me Verified 11/05/23 19:27 go crazy" ramipril AdvReac Intermediate cough Verified 11/05/23 19:27 Home Medications Medication Instructions Recorded Confirmed Type aspirin 81 mg tablet,delayed 81 mg PO DAILY 10/19/23 11/05/23 History release atorvastatin 20 mg tablet 20 mg PO DAILY 10/19/23 11/05/23 History hydrocodone 10 mg-acetaminophen 1 tab PO BID PRN Severe Pain 10/19/23 11/05/23 History 325 mg tablet (Scale Score 7-10) omeprazole 20 mg capsule,delayed 20 mg PO DAILY 10/19/23 11/05/23 History release diclofenac sodium 1 % topical gel 2 g EXT BID #50 grams 10/22/23 11/05/23 Rx (Voltaren Arthritis Pain) hydralazine 50 mg tablet 50 mg PO QID #120 tabs 10/22/23 11/05/23 Rx isosorbide dinitrate 20 mg tablet 20 mg PO BID@0700,1200 #60 tabs 10/22/23 11/05/23 Rx torsemide 10 mg tablet 10 mg PO DAILY #1 tab 10/22/23 11/05/23 Rx acetaminophen 650 mg 650 mg PO Q8H PRN Pain 11/05/23 11/05/23 History tablet,extended release amlodipine 10 mg tablet 10 mg PO QAM 11/05/23 11/05/23 History ascorbic acid (vitamin C) 1,000 mg 500 mg PO Q OTHER DAY 11/05/23 11/05/23 History tablet (Vitamin C) cholecalciferol (vitamin D3) 25 25 mcg PO DAILY 11/05/23 11/05/23 History mcg (1,000 unit) capsule (Vitamin D3) cranberry concentrate-ascorbic 4 cap PO DAILY 11/05/23 11/05/23 History acid 140 mg-100 mg capsule (Cranberry Plus Vitamin C) cyanocobalamin (vitamin B-12) 1,000 mcg PO Q OTHER DAY 11/05/23 11/05/23 History 1,000 mcg tablet (Vitamin B-12) docusate sodium 100 mg capsule 100 - 200 mg PO DAILY PRN 11/05/23 11/05/23 History Constipation nitroglycerin 0.3 mg sublingual 0.3 mg sublingual DIRECTED PRN 11/05/23 11/05/23 History tablet (Nitrostat) Chest Pain pediatric multivitamin 1 tab PO 2XWK 11/05/23 11/05/23 History no.226-ferrous sulfate 18 mg chewable tablet (Flintstones with Extra Iron) polyethylene glycol 3350 17 17 g PO DAILY PRN Constipation 11/05/23 11/05/23 History gram/dose oral powder (Miralax) pyridoxine (vitamin B6) 50 mg 50 mg PO DAILY 11/05/23 11/05/23 History tablet (Vitamin B-6) ramelteon 8 mg tablet 8 mg PO HS 11/05/23 11/05/23 History vitamin E 670 mg (1,000 unit) 670 mg PO DAILY 11/05/23 11/05/23 History capsule Patient History Medical History (Updated 11/12/23 @ 20:32 by eRnetta Santos, DELMY) Pedal edema Severe muscle deconditioning Palliative care by specialist Dyspnea and respiratory abnormalities Declining performance status Anxiety associated with depression Anxiety Advanced care planning/counseling discussion CKD (chronic kidney disease) stage 4, GFR 15-29 ml/min Chronic heart failure with preserved ejection fraction (HFpEF) Myalgia Generalized weakness Acute exacerbation of congestive heart failure COVID Hypertensive crisis Chronic sialoadenitis Poor historian Chronic back pain Osteoarthritis History of esophageal dilatation GERD (gastroesophageal reflux disease) Leaky heart valve per pt aorta--follows with Dr. Gonzáles Hypertension Hyperlipidemia Cardiac murmur Esophageal motility disorder "noted on barium swallow 10/2014" Chawla's esophagus Aortic stenosis "moderately severe by echo September 2013" Coronary artery disease LM PCI 07/27/2022 Surgical History (Updated 04/21/24 @ 00:09 by Background Dabeltran) History of colonoscopy History of umbilical hernia repair History of cardiac cath x3--last 12/2018 no stents History of hysterectomy History of lumpectomy cant remember which breast---benign fatty tissue History of bilateral tubal ligation History of carpal tunnel release of both wrists History of lumbar spinal fusion History of total left knee replacement (TKR) History of appendectomy History of cholecystectomy History of esophagogastroduodenoscopy (EGD) History of tooth extraction History of tonsillectomy History of sinus surgery Family History Other No family history of adverse response to anesthesia No family history of bleeding disorder Social History Smoking Status: Former smoker Tobacco Type: Cigarettes Smoking End Date: 40 years ago; Second Hand Exposure: No; Do You Dip or Chew Tobacco: No; Hx Alcohol Use: No Hx Substance Use: No Preferred Language: Ukrainian Communication Ability: Effective 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 Sons help daily. Other Information That Helps Us Care for You: No Feels Safe at Home: Yes Safety Concerns: Feels Safe At This Time Assistive Devices: Cane, Walker and Wheelchair Review of Systems Review of Systems: All systems reviewed & are unremarkable except as noted in Subjective Physical Exam Physical Exam: Elderly female, resting at the edge of the bed, bent over in a tripod position with forehead resting on her bedside table. From this position she is slowly eating a turkey sandwich. She tells me she is weak, tired and always short of breath. She has conversational dyspnea. There is bitemporal wasting. Pupils are equal, round and reactive to light. Extraocular movements are intact. Neck is supple and without stridor. Pharynx is pink, mucosa slightly dry. Dentition is poor to borderline fair. Respiratory effort is significantly limited. There are some faint crackles bilaterally. Lung sounds overall diminished. She has a loud S2, and a + 2 out of 6 murmur noted. Abdomen is soft and mildly distended. It is nontender to palpation. There is generalized weakness throughout. There is 2+ edema to the lower extremities. Skin is pale, + pallor, + ashen, + cyanotic changes to the nailbeds and lower extremities with lividity. Skin is cool to the touch. She is awake, alert and oriented x 3. Her overall insight into her illness remains limited. Her judgment appears limited. Results & Data Vital Signs (Past 12 Hours) Vital Signs Temp Pulse Pulse Resp BP BP Pulse Ox 11/12/23 11:55 37.1 C 64 18 148/50 H 96 11/12/23 09:41 68 11/12/23 07:53 36.9 C 67 18 154/55 H 94 11/12/23 03:02 71 169/56 H 11/12/23 02:47 75 160/67 H 11/12/23 02:03 37.0 C 75 16 160/67 H 94 O2 Del Method O2 Flow Rate 11/12/23 11:55 Room Air 11/12/23 09:41 11/12/23 07:53 Room Air 11/12/23 03:02 11/12/23 02:47 11/12/23 02:03 Nasal Cannula 4.0 Laboratory Results 11/12/23 11/12/23 11/12/23 Range/Units 11:35 05:49 02:41 WBC 7.67 (4.8-10.8) K/ul RBC 2.68 L (4.20-5.40) M/uL Hgb 8.2 L 7.8 L (12.0-16.0) g/dl Hct 26.4 L 24.8 L (37.0-47.0) % MCV 92.5 (80.0-100.0) fL MCH 29.1 (25.0-34.0) pg MCHC 31.5 L (32.0-36.0) g/dL RDW Std Deviation 47.4 H (36.4-46.3) fL RDW Coeff of Breanne 14.0 (11.5-14.5) % Plt Count 267 (130-400) K/uL MPV 10.1 (9.4-12.4) fL Immature Gran % (Auto) 0.3 % Neut % (Auto) 80.1 % Lymph % (Auto) 5.6 % Owsley % (Auto) 7.4 % Eos % (Auto) 5.9 % Baso % (Auto) 0.7 % Neut # (Auto) 6.15 (1.40-6.50) K/uL Lymph # (Auto) 0.43 L (1.20-3.40) K/uL Owsley # (Auto) 0.57 (0.11-0.59) K/uL Eos # (Auto) 0.45 (0.00-0.50) K/uL Baso # (Auto) 0.05 (0.00-0.20) K/uL Immature Gran # (Auto) 0.02 (0.01-0.20) K/uL Ovalocytes 1+ APTT (21-31) Seconds PTT Ratio ABG pH (7.35-7.45) ABG pCO2 (35-46) mmHg ABG pO2 (80-95) mmHg ABG HCO3 (19-24) mmol/L ABG O2 Saturation (90-95) % ABG Base Excess (-9-1.8) mEq/L Nathan Test (Pos) Oxygen Given Sodium 136 (136-145) mmol/L Potassium 4.9 (3.5-5.1) mmol/L Chloride 103 (98-107) mmol/L Carbon Dioxide 26 (21-32) mmol/L Anion Gap 7 (3-11) BUN 77 H (6-23) mg/dl Creatinine 2.24 H (0.6-1.2) mg/dl Est Cr Clr Drug Dosing 16.6 ml/min Est GFR ( Amer) 23.2 ml/min Est GFR (Non-Af Amer) 20.1 ml/min BUN/Creatinine Ratio 34.4 H (10-20) Glucose 115 H (70-99(Fasting)) mg/dl POC Glucose 113 H (70-99) mg/dl Calcium 9.7 (8.6-10.3) mg/dl Phosphorus (2.5-4.9) mg/dl Magnesium 2.5 H (1.7-2.4) mg/dl Troponin I High Sens (0-14) pg/ml Urine Color Urine Appearance (Clear) Urine pH (4.5-7.5) Ur Specific Hutto (1.000-1.030) Urine Protein (Negative) Urine Glucose (UA) (Negative) Urine Ketones (Negative) Urine Blood (Negative) Urine Nitrite (Negative) Urine Bilirubin (Negative) Urine Urobilinogen (Negative) Ur Leukocyte Esterase (Negative) Urine WBC (Auto) (0-5) /hpf Urine RBC (Auto) (0-2) /hpf U Hyaline Cast (Auto) (0-2) /lpf U Epithel Cells (Auto) (0-2) /hpf Urine Bacteria (Auto) (None Seen) Blood Type O Positive Antibody Screen NEGATIVE 11/11/23 11/10/23 11/09/23 Range/Units 06:17 05:40 09:18 WBC (4.8-10.8) K/ul RBC (4.20-5.40) M/uL Hgb (12.0-16.0) g/dl Hct (37.0-47.0) % MCV (80.0-100.0) fL MCH (25.0-34.0) pg MCHC (32.0-36.0) g/dL RDW Std Deviation (36.4-46.3) fL RDW Coeff of Breanne (11.5-14.5) % Plt Count (130-400) K/uL MPV (9.4-12.4) fL Immature Gran % (Auto) % Neut % (Auto) % Lymph % (Auto) % Owsley % (Auto) % Eos % (Auto) % Baso % (Auto) % Neut # (Auto) (1.40-6.50) K/uL Lymph # (Auto) (1.20-3.40) K/uL Owsley # (Auto) (0.11-0.59) K/uL Eos # (Auto) (0.00-0.50) K/uL Baso # (Auto) (0.00-0.20) K/uL Immature Gran # (Auto) (0.01-0.20) K/uL Ovalocytes APTT (21-31) Seconds PTT Ratio ABG pH (7.35-7.45) ABG pCO2 (35-46) mmHg ABG pO2 (80-95) mmHg ABG HCO3 (19-24) mmol/L ABG O2 Saturation (90-95) % ABG Base Excess (-9-1.8) mEq/L Nathan Test (Pos) Oxygen Given Sodium 136 135 L (136-145) mmol/L Potassium 5.0 4.9 (3.5-5.1) mmol/L Chloride 103 102 (98-107) mmol/L Carbon Dioxide 25 25 (21-32) mmol/L Anion Gap 8 8 (3-11) BUN 72 H 68 H (6-23) mg/dl Creatinine 2.19 H 2.34 H D (0.6-1.2) mg/dl Est Cr Clr Drug Dosing 16.9 15.9 ml/min Est GFR ( Amer) 23.9 22.0 ml/min Est GFR (Non-Af Amer) 20.6 19.0 ml/min BUN/Creatinine Ratio 32.9 H 29.1 H (10-20) Glucose 102 H 101 H (70-99(Fasting)) mg/dl POC Glucose (70-99) mg/dl Calcium 10.0 9.4 (8.6-10.3) mg/dl Phosphorus (2.5-4.9) mg/dl Magnesium 2.2 (1.7-2.4) mg/dl Troponin I High Sens 177.3 H* (0-14) pg/ml Urine Color Urine Appearance (Clear) Urine pH (4.5-7.5) Ur Specific Hutto (1.000-1.030) Urine Protein (Negative) Urine Glucose (UA) (Negative) Urine Ketones (Negative) Urine Blood (Negative) Urine Nitrite (Negative) Urine Bilirubin (Negative) Urine Urobilinogen (Negative) Ur Leukocyte Esterase (Negative) Urine WBC (Auto) (0-5) /hpf Urine RBC (Auto) (0-2) /hpf U Hyaline Cast (Auto) (0-2) /lpf U Epithel Cells (Auto) (0-2) /hpf Urine Bacteria (Auto) (None Seen) Blood Type Antibody Screen 11/09/23 11/08/23 11/07/23 Range/Units 06:03 07:53 05:43 WBC 8.54 6.58 (4.8-10.8) K/ul RBC 3.17 L 3.11 L (4.20-5.40) M/uL Hgb 9.2 L 9.1 L (12.0-16.0) g/dl Hct 28.4 L 28.0 L (37.0-47.0) % MCV 89.6 90.0 (80.0-100.0) fL MCH 29.0 29.3 (25.0-34.0) pg MCHC 32.4 32.5 (32.0-36.0) g/dL RDW Std Deviation 44.8 44.6 (36.4-46.3) fL RDW Coeff of Breanne 13.6 13.7 (11.5-14.5) % Plt Count 301 293 (130-400) K/uL MPV 9.9 9.6 (9.4-12.4) fL Immature Gran % (Auto) 0.5 % Neut % (Auto) 80.5 % Lymph % (Auto) 5.2 % Owsley % (Auto) 8.8 % Eos % (Auto) 3.9 % Baso % (Auto) 1.1 % Neut # (Auto) 6.89 H (1.40-6.50) K/uL Lymph # (Auto) 0.44 L (1.20-3.40) K/uL Owsley # (Auto) 0.75 H (0.11-0.59) K/uL Eos # (Auto) 0.33 (0.00-0.50) K/uL Baso # (Auto) 0.09 (0.00-0.20) K/uL Immature Gran # (Auto) 0.04 (0.01-0.20) K/uL Ovalocytes APTT 31 (21-31) Seconds PTT Ratio 1.1 ABG pH 7.36 (7.35-7.45) ABG pCO2 42 (35-46) mmHg ABG pO2 66 L (80-95) mmHg ABG HCO3 24 (19-24) mmol/L ABG O2 Saturation 94.2 (90-95) % ABG Base Excess -1.8 (-9-1.8) mEq/L Nathan Test Pos (Pos) Oxygen Given 2L Sodium 133 L 133 L 135 L (136-145) mmol/L Potassium 4.5 4.5 4.6 (3.5-5.1) mmol/L Chloride 102 102 102 (98-107) mmol/L Carbon Dioxide 23 22 24 (21-32) mmol/L Anion Gap 8 9 9 (3-11) BUN 55 H 53 H 49 H (6-23) mg/dl Creatinine 2.01 H 1.89 H 1.93 H (0.6-1.2) mg/dl Est Cr Clr Drug Dosing 18.5 19.6 19.2 ml/min Est GFR ( Amer) 26.5 28.5 27.8 ml/min Est GFR (Non-Af Amer) 22.9 24.6 24.0 ml/min BUN/Creatinine Ratio 27.4 H 28.0 H 25.4 H (10-20) Glucose 130 H 101 H 92 (70-99(Fasting)) mg/dl POC Glucose (70-99) mg/dl Calcium 9.6 9.8 9.5 (8.6-10.3) mg/dl Phosphorus 4.5 (2.5-4.9) mg/dl Magnesium 2.1 2.1 (1.7-2.4) mg/dl Troponin I High Sens 167.6 H* (0-14) pg/ml Urine Color Urine Appearance (Clear) Urine pH (4.5-7.5) Ur Specific Hutto (1.000-1.030) Urine Protein (Negative) Urine Glucose (UA) (Negative) Urine Ketones (Negative) Urine Blood (Negative) Urine Nitrite (Negative) Urine Bilirubin (Negative) Urine Urobilinogen (Negative) Ur Leukocyte Esterase (Negative) Urine WBC (Auto) (0-5) /hpf Urine RBC (Auto) (0-2) /hpf U Hyaline Cast (Auto) (0-2) /lpf U Epithel Cells (Auto) (0-2) /hpf Urine Bacteria (Auto) (None Seen) Blood Type Antibody Screen 11/07/23 11/06/23 11/06/23 Range/Units 00:32 17:03 10:42 WBC (4.8-10.8) K/ul RBC (4.20-5.40) M/uL Hgb (12.0-16.0) g/dl Hct (37.0-47.0) % MCV (80.0-100.0) fL MCH (25.0-34.0) pg MCHC (32.0-36.0) g/dL RDW Std Deviation (36.4-46.3) fL RDW Coeff of Breanne (11.5-14.5) % Plt Count (130-400) K/uL MPV (9.4-12.4) fL Immature Gran % (Auto) % Neut % (Auto) % Lymph % (Auto) % Owsley % (Auto) % Eos % (Auto) % Baso % (Auto) % Neut # (Auto) (1.40-6.50) K/uL Lymph # (Auto) (1.20-3.40) K/uL Owsley # (Auto) (0.11-0.59) K/uL Eos # (Auto) (0.00-0.50) K/uL Baso # (Auto) (0.00-0.20) K/uL Immature Gran # (Auto) (0.01-0.20) K/uL Ovalocytes APTT (21-31) Seconds PTT Ratio ABG pH (7.35-7.45) ABG pCO2 (35-46) mmHg ABG pO2 (80-95) mmHg ABG HCO3 (19-24) mmol/L ABG O2 Saturation (90-95) % ABG Base Excess (-9-1.8) mEq/L Nathan Test (Pos) Oxygen Given Sodium (136-145) mmol/L Potassium (3.5-5.1) mmol/L Chloride (98-107) mmol/L Carbon Dioxide (21-32) mmol/L Anion Gap (3-11) BUN (6-23) mg/dl Creatinine (0.6-1.2) mg/dl Est Cr Clr Drug Dosing ml/min Est GFR ( Amer) ml/min Est GFR (Non-Af Amer) ml/min BUN/Creatinine Ratio (10-20) Glucose (70-99(Fasting)) mg/dl POC Glucose (70-99) mg/dl Calcium (8.6-10.3) mg/dl Phosphorus (2.5-4.9) mg/dl Magnesium (1.7-2.4) mg/dl Troponin I High Sens 163.7 H* 191.7 H* 197.4 H* (0-14) pg/ml Urine Color Urine Appearance (Clear) Urine pH (4.5-7.5) Ur Specific Hutto (1.000-1.030) Urine Protein (Negative) Urine Glucose (UA) (Negative) Urine Ketones (Negative) Urine Blood (Negative) Urine Nitrite (Negative) Urine Bilirubin (Negative) Urine Urobilinogen (Negative) Ur Leukocyte Esterase (Negative) Urine WBC (Auto) (0-5) /hpf Urine RBC (Auto) (0-2) /hpf U Hyaline Cast (Auto) (0-2) /lpf U Epithel Cells (Auto) (0-2) /hpf Urine Bacteria (Auto) (None Seen) Blood Type Antibody Screen 11/06/23 11/05/23 11/05/23 Range/Units 05:25 21:22 19:31 WBC 5.68 (4.8-10.8) K/ul RBC 3.01 L (4.20-5.40) M/uL Hgb 8.8 L (12.0-16.0) g/dl Hct 26.6 L (37.0-47.0) % MCV 88.4 (80.0-100.0) fL MCH 29.2 (25.0-34.0) pg MCHC 33.1 (32.0-36.0) g/dL RDW Std Deviation 44.9 (36.4-46.3) fL RDW Coeff of Breanne 13.8 (11.5-14.5) % Plt Count 285 (130-400) K/uL MPV 9.8 (9.4-12.4) fL Immature Gran % (Auto) 0.4 % Neut % (Auto) 66.6 % Lymph % (Auto) 12.5 % Owsley % (Auto) 11.3 % Eos % (Auto) 7.6 % Baso % (Auto) 1.6 % Neut # (Auto) 3.79 (1.40-6.50) K/uL Lymph # (Auto) 0.71 L (1.20-3.40) K/uL Owsley # (Auto) 0.64 H (0.11-0.59) K/uL Eos # (Auto) 0.43 (0.00-0.50) K/uL Baso # (Auto) 0.09 (0.00-0.20) K/uL Immature Gran # (Auto) 0.02 (0.01-0.20) K/uL Ovalocytes APTT (21-31) Seconds PTT Ratio ABG pH (7.35-7.45) ABG pCO2 (35-46) mmHg ABG pO2 (80-95) mmHg ABG HCO3 (19-24) mmol/L ABG O2 Saturation (90-95) % ABG Base Excess (-9-1.8) mEq/L Nathan Test (Pos) Oxygen Given Sodium 137 (136-145) mmol/L Potassium 4.1 (3.5-5.1) mmol/L Chloride 106 (98-107) mmol/L Carbon Dioxide 22 (21-32) mmol/L Anion Gap 9 (3-11) BUN 45 H (6-23) mg/dl Creatinine 1.67 H (0.6-1.2) mg/dl Est Cr Clr Drug Dosing 22.2 ml/min Est GFR ( Amer) 33.1 ml/min Est GFR (Non-Af Amer) 28.6 ml/min BUN/Creatinine Ratio 26.9 H (10-20) Glucose 88 (70-99(Fasting)) mg/dl POC Glucose (70-99) mg/dl Calcium 9.3 (8.6-10.3) mg/dl Phosphorus (2.5-4.9) mg/dl Magnesium 1.6 L (1.7-2.4) mg/dl Troponin I High Sens 181.5 H* 163.5 H* (0-14) pg/ml Urine Color Yellow Urine Appearance Clear (Clear) Urine pH 5.0 (4.5-7.5) Ur Specific [place] 1.015 (1.000-1.030) Urine Protein 3+ H (Negative) Urine Glucose (UA) Negative (Negative) Urine Ketones Negative (Negative) Urine Blood Negative (Negative) Urine Nitrite Negative (Negative) Urine Bilirubin Negative (Negative) Urine Urobilinogen Negative (Negative) Ur Leukocyte Esterase Negative (Negative) Urine WBC (Auto) 0-5 (0-5) /hpf Urine RBC (Auto) 0-2 (0-2) /hpf U Hyaline Cast (Auto) 3-5 H (0-2) /lpf U Epithel Cells (Auto) 6-10 H (0-2) /hpf Urine Bacteria (Auto) None Seen (None Seen) Blood Type Antibody Screen 11/05/23 Range/Units 18:00 WBC (4.8-10.8) K/ul RBC (4.20-5.40) M/uL Hgb (12.0-16.0) g/dl Hct (37.0-47.0) % MCV (80.0-100.0) fL MCH (25.0-34.0) pg MCHC (32.0-36.0) g/dL RDW Std Deviation (36.4-46.3) fL RDW Coeff of Breanne (11.5-14.5) % Plt Count (130-400) K/uL MPV (9.4-12.4) fL Immature Gran % (Auto) % Neut % (Auto) % Lymph % (Auto) % [place] % (Auto) % Eos % (Auto) % Baso % (Auto) % Neut # (Auto) (1.40-6.50) K/uL Lymph # (Auto) (1.20-3.40) K/uL [place] # (Auto) (0.11-0.59) K/uL Eos # (Auto) (0.00-0.50) K/uL Baso # (Auto) (0.00-0.20) K/uL Immature Gran # (Auto) (0.01-0.20) K/uL Ovalocytes APTT (21-31) Seconds PTT Ratio ABG pH (7.35-7.45) ABG pCO2 (35-46) mmHg ABG pO2 (80-95) mmHg ABG HCO3 (19-24) mmol/L ABG O2 Saturation (90-95) % ABG Base Excess (-9-1.8) mEq/L Nathan Test (Pos) Oxygen Given Sodium (136-145) mmol/L Potassium (3.5-5.1) mmol/L Chloride (98-107) mmol/L Carbon Dioxide (21-32) mmol/L Anion Gap (3-11) BUN (6-23) mg/dl Creatinine (0.6-1.2) mg/dl Est Cr Clr Drug Dosing ml/min Est GFR ( Amer) ml/min Est GFR (Non-Af Amer) ml/min BUN/Creatinine Ratio (10-20) Glucose (70-99(Fasting)) mg/dl POC Glucose (70-99) mg/dl Calcium (8.6-10.3) mg/dl Phosphorus (2.5-4.9) mg/dl Magnesium (1.7-2.4) mg/dl Troponin I High Sens 176.8 H* (0-14) pg/ml Urine Color Urine Appearance (Clear) Urine pH (4.5-7.5) Ur Specific [place] (1.000-1.030) Urine Protein (Negative) Urine Glucose (UA) (Negative) Urine Ketones (Negative) Urine Blood (Negative) Urine Nitrite (Negative) Urine Bilirubin (Negative) Urine Urobilinogen (Negative) Ur Leukocyte Esterase (Negative) Urine WBC (Auto) (0-5) /hpf Urine RBC (Auto) (0-2) /hpf U Hyaline Cast (Auto) (0-2) /lpf U Epithel Cells (Auto) (0-2) /hpf Urine Bacteria (Auto) (None Seen) Blood Type Antibody Screen Diagnostic Findings Chest X-Ray 11/05/23 17:33 SINGLE VIEW CHEST CLINICAL HISTORY: Generalized weakness. FINDINGS: An AP, portable, upright chest radiograph is compared to study dated 10/18/2023 and correlated with chest CT dated 06/16/2022. A hiatal hernia is noted. The heart Is enlarged noting atherosclerotic calcification of the thoracic aorta. Mitral annulus is densely calcified. The pulmonary vasculature is noncongested. Chronic interstitial thickening is similar to previous. There is mild bibasilar scarring/atelectasis. Small pleural effusions are suspected. There is no airspace consolidation typical for pneumonia. No pneumothorax is see n. The skeletal structures are osteopenic. The bony thorax is grossly intact. Degenerative change is noted in the shoulders and spine. IMPRESSION: 1. Cardiomegaly without radiographic evidence of congestive failure. 2. Suspect small pleural effusions. ACT 112: Negative or not required by law. Electronically signed by: Bernabe Pressley M.D. 11/05/2023 7:18 PM Chest X-Ray 11/09/23 05:21 XR chest 1V portable CLINICAL HISTORY: Shortness of breath. COMPARISON STUDY: Chest radiograph November 05, 2023. Chest CT June 16, 2022. FINDINGS: There is no pneumothorax. Small bilateral pleural effusions have increased in size. Bibasilar opacities have developed. Pulmonary edema has developed. Cardiomegaly is unchanged. A hiatal hernia is again noted. Bilateral hilar enlargement is due to dilatation of the central pulmonary arteries. IMPRESSION: 1. Cardiomegaly with interval development of pulmonary edema. 2. Increase in size of small bilateral pleural effusions. Associated bibasilar opacities favor atelectasis. ACT 112: Negative or not required by law. Electronically signed by: Roberto Herrera M.D. 11/09/2023 6:32 AM PG Care Time/CCT Total # of Minutes Spent Total Time Spent with Patient: Total time spent is greater than 50% in coordination of care (as documented) at patient's floor/unit and/or counseling patient: I spent 110 minutes overall addressing this case: 15 min in medical data review/discussion with referring provider(s) and/or preparation for the visit 25 min in direct interaction with the patient/exam 45 min in Advance Care Planning/Goals of Care discussions as detailed above in note (must be >16min) 15 min in subsequent review and synthesis of assessment and plan 10 min communicating with other providers regarding the patient's case: Primary team Advanced Care Planning 90197 Advanced Care Planning 30 Min 15819 Advanced Care Planning Additional 30 [place] [address] IN/OBS CONSULT LVL 5,80M Patient Type New History Comprehensive Exam Comprehensive Medical Decision Making High Complexity Diagnoses Declining performance status R53.81 Dyspnea and respiratory abnormalities R06.00; R06.89 Generalized weakness R53.1 Anxiety associated with depression F41.8 Pedal edema R60.0 Severe muscle deconditioning R29.898 Advanced care planning/counseling discussion Z71.89 Palliative care by specialist Z51.5 Additional Codes Advanced Care Planning - 87483 Advanced Care Planning 30 Min: 24108 Advanced Care Planning 30 Min ([id number]) Advanced Care Planning - 29751 Advanced Care Planning Additional 30 Min: 15007 Advanced Care Planning Additional 30 Min ([id number])
--- NOTE | 2023-11-12 12:50 | Hospitalist Progress Note ---
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 Hypertensive urgency- Medications uptitrated by cardio and BP now stable. Now on HLZ 75 mg qid along with isordil 40 mg tid along with norvasc 10 mg daily and low dose toprol 12.5 bid. Continue torsemide. S/p nitro patch. Avoid LINDEN/ARB's due to renal impairment and aortic stenosis. Chest pain- no further recurrences. Cardio following. Trop chronically elevated and flat trend, EKG with no acute changes, recent cath a month ago with patent left main stent and mild-mod coronary atherosclerosis without obstruction. Plan as above. If discomfort recurs, consider iv morphine per cardio. Now on ASA, statin, BB and nitrates. Chronic diastolic CHF w acute exacerbation-Now improved with diuretics- being managed by cardio. Will follow clinically and labs. Moderate aortic stenosis-echo reviewed. Cardiology recommended against LINDEN /ARB's. Recommend outpatient follow-up with valve clinic Dr. Son in November. CKD4 -creatinine relatively stable. Will monitor renal function with diuresis. Chronic back pain-PDMP reviewed. Since patient has been on [place] 10-325 twice daily, consistently refilled every month but has not been getting it here. Continue oxycodone 5 twice daily along with Tylenol 3 times daily for pain relief. Continue Lidoderm patch. Can try Cymbalta if pain persistent Constipation- resolved with bowel regimen, will continue GERD/hiatal hernia, history of esophageal strictures, esophageal dysmotility disorder- On PPI and maalox Chronic anemia-hemoglobin close to 9. Stable. Insomnia-ongoing issue. Psychiatry recommendations reviewed. Now on remeron and ambien. Will uptitrate ambien as still with insomnia. ?NEENA- Oximetry suggestive of sleep apnea- 10 desaturation events noted. Will need sleep study as OP. Palliative consulted by cardio for GOC discussion DVT prophylaxis-subcu heparin Disposition- TBD. pending medical stability. Pending palliative discussion Time spent-approximately 35 minutes Admission and Anticipated Discharge Date Admission Date: November 05, 2023 Subjective Patient was seen and examined at bedside. Her main concern still remains not being able to sleep. States she she did not get any sleep last night. Breathing is about the same. Appetite is still poor. No new issues. Review of Systems Review of Systems: All systems reviewed & are unremarkable except as noted in Subjective Physical Exam Physical Exam: General: Lying in bed, not in acute distress, on NC HEENT: JAYLEN, MMM Chest: Decreased breath sounds with rales CVS: Regular rate and rhythm, normal heart sounds, systolic murmur Abdomen: Soft, non tender, not distended, normal bowel sounds Neuro: Awake, alert, oriented, conversing well, non focal Extremities: Trace pedal edema Psych: Calm, cooperative Results & Data Results & Data Vital Signs (Past 12 Hours) Vital Signs Temp Pulse Pulse Resp BP BP Pulse Ox 11/12/23 11:55 37.1 C 64 18 148/50 H 96 11/12/23 09:41 68 11/12/23 08:00 11/12/23 07:53 36.9 C 67 18 154/55 H 94 11/12/23 03:02 71 169/56 H 11/12/23 02:47 75 160/67 H 11/12/23 02:03 37.0 C 75 16 160/67 H 94 O2 Del Method O2 Flow Rate 11/12/23 11:55 Room Air 11/12/23 09:41 11/12/23 08:00 Nasal Cannula 4 11/12/23 07:53 Room Air 11/12/23 03:02 11/12/23 02:47 11/12/23 02:03 Nasal Cannula 4.0 Laboratory Results Short CBC 11/12/23 11/12/23 Range/Units 02:41 05:49 WBC 7.67 (4.8-10.8) K/ul Hgb 7.8 L 8.2 L (12.0-16.0) g/dl Hct 24.8 L 26.4 L (37.0-47.0) % Plt Count 267 (130-400) K/uL BMP 11/12/23 02:41 Sodium 136 Potassium 4.9 Chloride 103 Carbon Dioxide 26 BUN 77 H Creatinine 2.24 H Glucose 115 H Calcium 9.7 (3) Aortic stenosis Cardiac valve disease etiology: nonrheumatic Qualified Code(s): I35.0 - Nonrheumatic aortic (valve) stenosis (5) Insomnia Insomnia type: unspecified Qualified Code(s): G47.00 - Insomnia, unspecified
[2023-11-13 06:55] LABS: Hematocrit (blood only) 24.5 % (37.0-47.0); Hemoglobin 7.6 g/dl (12.0-16.0); Mean Corpuscular Hemoglobin 28.9 pg (25.0-34.0); Mean Corpuscular Volume 93.2 fL (80.0-100.0); Mean Platelet Volume 10.1 fL (9.4-12.4); Platelet Count 268 K/uL (130-400); RDW Coefficient of Variation 13.9 % (11.5-14.5); RDW Standard Deviation 46.9 fL (36.4-46.3); Red Blood Count 2.63 M/uL (4.20-5.40); White Blood Count 5.81 K/ul (4.8-10.8)
[2023-11-13 07:22] LABS: BUN Creatinine Ratio 35.7 (10-20); Calcium 9.7 mg/dl (8.6-10.3); Creatinine Clr Calc Pharmacy 16.1 ml/min; Est GFR (African American) 22.5 ml/min; Est GFR (Non-African American) 19.4 ml/min; Potassium 4.7 mmol/L (3.5-5.1)
--- NOTE | 2023-11-13 11:42 | Cardiology Progress Note ---
Date of Service November 13, 2023 Assessment & Plan (1) Insomnia: (2) Chronic heart failure with preserved ejection fraction (HFpEF): (3) Aortic stenosis: (4) Coronary artery disease: (5) Elevated troponin: (6) Hypertension: (7) Severe pulmonary hypertension: Plan Impression: Medically complex 78 year old female with complex valvular heart disease, CAD (PCI to LM 07/2022), and diastolic CHF. Cardiac catheterization performed 1 month ago demonstrated patent left main stent and mild to moderate coronary atherosclerosis without obstruction Moderate to borderline severe aortic stenosis present with severe pulmonary hypertension Postoperative course complicated by acute renal insufficiency with contrast and ARB Presented with multitude of complaints including predominantly insomnia on current presentation but since hospitalization has developed worsening shortness of breath labile heart rate and blood pressure Carvedilol recently d/c due to bradycardia last admission Last night symptoms of chest pressure with chronic troponin elevation. Elevated blood pressure and heart rate Chest x-ray with increased pulmonary vasculature treated with IV furosemide, topical nitro paste 11/13/23: Generalized frailty noted as described in other notes. Volume status stable. Likely poor candidate for TAVR, and am not confident that such a procedure would change her trajectory and may even hasten her demise. Continue ASA 81 mg given history of left main coronary stent in 2022. Continue Torsemide 10 mg by mouth on Sun, , , Sun and 20 mg on Sun, Sun, and Fridays. Will need to accept some degree of azotemia. Continue metoprolol succinate 12.5 mg BID. I spent a total of 30 minutes on the date of service in preparation, delivery, and documentation of the care provided to this patient, excluding any time spent in the performance of separately billed services. This chart was completed in part utilizing Speech Voice Recognition Software. Grammatical errors, random word insertions, pronoun errors, and incomplete sentences are an occasional consequence of this system due to software limitations, ambient noise, and hardware issues. Any formal questions or concerns about the content, text, or information contained within the body of this dictation should be directly addressed to the provider for clarification. Admission and Anticipated Discharge Date Admission Date: November 05, 2023 Subjective Patient seen in cardiology follow up. Telemetry reveals SR in the 60s. No acute complaints. Physical Exam Constitutional: + ill appearing (chronically ill in appe arance) and + frail appearing; no acute distress Respiratory: Auscultation: + crackles (mild crackles at bases bilaterally ); no wheezes Cardiovascular: Rate/Rhythm: regular rate and regular rhythm Heart Sounds: + murmur (2/6 SM ) Extremities: + edema (trace edema ) Gastrointestinal (Abdomen): normal bowel sounds, soft, nontender, no hepatosplenomegaly Musculoskeletal: Spine: + kyphosis Neurologic: PERRL, EOMI, accommodation nl, no face palsy, no dysarthria Results & Data Vital Signs (Past 12 Hours) Vital Signs Temp Pulse Pulse Resp BP BP Pulse Ox 11/13/23 10:54 11/13/23 08:07 70 11/13/23 07:57 37.0 C 74 20 160/69 H 97 11/13/23 01:45 37.6 C H 71 24 177/58 H 93 11/13/23 01:36 89 O2 Del Method O2 Flow Rate 11/13/23 10:54 Nasal Cannula 4 11/13/23 08:07 11/13/23 07:57 Nasal Cannula 4 11/13/23 01:45 Nasal Cannula 4 11/13/23 01:36 Laboratory Results CBC 11/13/23 Range/Units 05:39 WBC 5.81 (4.8-10.8) K/ul RBC 2.63 L (4.20-5.40) M/uL Hgb 7.6 L (12.0-16.0) g/dl Hct 24.5 L (37.0-47.0) % Plt Count 268 (130-400) K/uL Comprehensive Metabolic Panel 11/13/23 Range/Units 05:39 Sodium 138 (136-145) mmol/L Potassium 4.7 (3.5-5.1) mmol/L Chloride 105 (98-107) mmol/L Carbon Dioxide 26 (21-32) mmol/L BUN 82 H (6-23) mg/dl Creatinine 2.30 H (0.6-1.2) mg/dl Glucose 97 (70-99(Fasting)) mg/dl Calcium 9.7 (8.6-10.3) mg/dl Intake and Output 11/12/23 11/13/23 11/13/23 22:59 06:59 14:59 Intake Total 550 / 650 100 / 650 Output Total 200 / 350 150 / 350 150 / 150 Balance 350 / 300 -50 / 300 -150 / -150 Intake: Oral 550 / 650 100 / 650 Output: Urine 200 / 350 150 / 350 150 / 150 Other: # Unmeasured Voids 1 Weight 60.5 kg (1) Insomnia Insomnia type: unspecified Qualified Code(s): G47.00 - Insomnia, unspecified (3) Aortic stenosis Cardiac valve disease etiology: etiology unspecified Qualified Code(s): I35.0 - Nonrheumatic aortic (valve) stenosis (4) Coronary artery disease Coronary Disease-Associated Artery/Lesion type: [place] artery [place] vs. transplanted heart: [place] heart Associated angina: with unspecified form of angina Qualified Code(s): I25.119 - Atherosclerotic heart disease of [place] coronary artery with unspecified angina pectoris (6) Hypertension Hypertension type: primary hypertension Qualified Code(s): I10 - Essential (primary) hypertension
--- NOTE | 2023-11-13 12:35 | Discharge Summary ---
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 Because of weakness she is not able to ambulate much. Appetite is down. Having some headaches when she is lying down. Have some sore throat. Denies any fevers. No cough. No chest pain. Has some shortness of breath on exertion. No nausea. No abdominal pain. Normal bowel and bladder movements. Patient recently had right and left heart catheterization at [facility] which showed mild coronary disease , moderate aortic stenosis and severely elevated right heart pressures , left main coronary stent was patent. Mild to moderate diffuse RCA disease noted and mild LAD disease and mild proximal left circumflex disease. Patient was again recently admitted to [facility] on 10/18/23 because of SHEA and hyponatremia and placed on fluid restriction 1.5 L a day and also her blood pressure medications were adjusted per cardiology and discharged on first 2023. Patient states since last fo 4/5 days she is not able to sleep at all. Asking to help her sleep. Feeling tired because of that. Hemodynamics are okay. Past medical history. As mentioned above Past surgical history. Left knee arthroplasty. Left and right heart catheterization. Cardiac stent. EGD. EGD with biopsy. EGD with endoscopic ultrasound. Laparoscopic cholecystectomy with cholangiography. Right carpal tunnel surgery. Colonoscopy with biopsy. Appendectomy. Oophorectomy. Repair of umbilical hernia. Sacroiliac joint injection. Diagnostic sigmoidoscopy. Vaginal hysterectomy. Social history. Lives alone. Son lives close by. Quit smoking in 1976. Smok ed 3 packs a day for 30 years. Alcohol rarely. No drug use. Family history. Father had arthritis. Cancer. Diabetes. Hypertension. Mother had CABG. Alzheimer's. Sister has hypertension. Arthritis. Admission Exam Per Admitting Provider General- Not in acute distress Head- atraumatic Eyes- PERRL. ENT- oropharynx clear Neck- supple, no JVD. Lungs- clear to auscultation no wheezing or crackles Heart- regular rhythm; no murmur, no gallop. Abdomen- normal bowel sounds, soft, nontender, no distension. Extremities- no pretibial edema, no erythema seen. Neuro- alert, oriented. PERRL, no facial palsy; no dysarthria; moves extremities. Principal Diagnosis Hypertensive urgency, Chronic diastolic CHF with exacerbation, moderate , CKD4 Insomnia, Hypoxia Discharge Exam General: Sleeping in chair, easily arousable, not in acute distress, on NC HEENT: JAYLEN, MMM Chest: Decreased breath sounds with rales CVS: Regular rate and rhythm, normal heart sounds, systolic murmur Abdomen: Soft, non tender, not distended, normal bowel sounds Neuro: Awake, alert, oriented, conversing well, non focal Extremities: Trace pedal edema Psych: Calm, cooperative Discharge Data Allergies Allergy/AdvReac Type Severity Reaction Status Date / Time gabapentin AdvReac Intermediate cough Verified 11/05/23 19:27 oxycodone AdvReac Intermediate "makes me Verified 11/05/23 19:27 go crazy" ramipril AdvReac Intermediate cough Verified 11/05/23 19:27 Consultations 11/05/23 19:40 ED Decision to Admit Stat 11/06/23 08:00 Consult Cardiology Routine 11/11/23 10:40 Consult Palliative Care Routine Ordered Studies Laboratory Results WBC 5.81 K/ul (4.8-10.8) 11/13/23 05:39 RBC 2.63 M/uL (4.20-5.40) L 11/13/23 05:39 Hgb 7.6 g/dl (12.0-16.0) L 11/13/23 05:39 Hct 24.5 % (37.0-47.0) L 11/13/23 05:39 MCV 93.2 fL (80.0-100.0) 11/13/23 05:39 MCH 28.9 pg (25.0-34.0) 11/13/23 05:39 MCHC 31.0 g/dL (32.0-36.0) L 11/13/23 05:39 RDW Std Deviation 46.9 fL (36.4-46.3) H 11/13/23 05:39 RDW Coeff of Breanne 13.9 % (11.5-14.5) 11/13/23 05:39 Plt Count 268 K/uL (130-400) 11/13/23 05:39 MPV 10.1 fL (9.4-12.4) 11/13/23 05:39 Immature Gran % (Auto) 0.3 % 11/12/23 02:41 Neut % (Auto) 80.1 % 11/12/23 02:41 Lymph % (Auto) 5.6 % 11/12/23 02:41 Morton % (Auto) 7.4 % 11/12/23 02:41 Eos % (Auto) 5.9 % 11/12/23 02:41 Baso % (Auto) 0.7 % 11/12/23 02:41 Neut # (Auto) 6.15 K/uL (1.40-6.50) 11/12/23 02:41 Lymph # (Auto) 0.43 K/uL (1.20-3.40) L 11/12/23 02:41 Morton # (Auto) 0.57 K/uL (0.11-0.59) 11/12/23 02:41 Eos # (Auto) 0.45 K/uL (0.00-0.50) 11/12/23 02:41 Baso # (Auto) 0.05 K/uL (0.00-0.20) 11/12/23 02:41 Immature Gran # (Auto) 0.02 K/uL (0.01-0.20) 11/12/23 02:41 Ovalocytes 1+ 11/12/23 02:41 APTT 31 Seconds (21-31) 11/09/23 06:03 PTT Ratio 1.1 11/09/23 06:03 ABG pH 7.36 (7.35-7.45) 11/09/23 06:03 ABG pCO2 42 mmHg (35-46) 11/09/23 06:03 ABG pO2 66 mmHg (80-95) L 11/09/23 06:03 ABG HCO3 24 mmol/L (19-24) 11/09/23 06:03 ABG O2 Saturation 94.2 % (90-95) 11/09/23 06:03 ABG Base Excess -1.8 mEq/L (-9-1.8) 11/09/23 06:03 Nathan Test Pos (Pos) 11/09/23 06:03 Oxygen Given 2L 11/09/23 06:03 Sodium 138 mmol/L (136-145) 11/13/23 05:39 Potassium 4.7 mmol/L (3.5-5.1) 11/13/23 05:39 Chloride 105 mmol/L (98-107) 11/13/23 05:39 Carbon Dioxide 26 mmol/L (21-32) 11/13/23 05:39 Anion Gap 7 (3-11) 11/13/23 05:39 BUN 82 mg/dl (6-23) H 11/13/23 05:39 Creatinine 2.30 mg/dl (0.6-1.2) H 11/13/23 05:39 Est Cr Clr Drug Dosing 16.1 ml/min 11/13/23 05:39 Est GFR ( Amer) 22.5 ml/min 11/13/23 05:39 Est GFR (Non-Af Amer) 19.4 ml/min 11/13/23 05:39 BUN/Creatinine Ratio 35.7 (10-20) H 11/13/23 05:39 Glucose 97 mg/dl (70-99(Fasting)) 11/13/23 05:39 POC Glucose 113 mg/dl (70-99) H 11/12/23 11:35 Calcium 9.7 mg/dl (8.6-10.3) 11/13/23 05:39 Phosphorus 4.5 mg/dl (2.5-4.9) 11/07/23 05:43 Magnesium 2.5 mg/dl (1.7-2.4) H 11/12/23 02:41 Total Bilirubin 0.6 mg/dl (0.2-1.0) 11/05/23 18:00 AST 29 U/L (13-39) 11/05/23 18:00 ALT 12 U/L (7-52) 11/05/23 18:00 Alkaline Phosphatase 74 U/L (34-104) 11/05/23 18:00 Troponin I High Sens 177.3 pg/ml (0-14) H* 11/09/23 09:18 Total Protein 7.7 gm/dl (6.0-8.3) 11/05/23 18:00 Albumin 4.0 gm/dl (3.4-5.0) 11/05/23 18:00 Globulin 3.7 gm/dl (2.5-4.0) 11/05/23 18:00 Albumin/Globulin Ratio 1.1 (0.9-2) 11/05/23 18:00 TSH 2.508 uIu/ml (0.300-4.500) 11/05/23 18:00 Urine Color Yellow 11/05/23 19: Urine Appearance Clear (Clear) 11/05/23: Urine pH 5.0 (4.5-7.5) 11/05/23: Ur Specific [place] 1.015 (1.000-1.030) 11/05/23 19: Urine Protein 3+ (Negative) H 11/05/23 19: Urine Glucose (UA) Negative (Negative) 11/05/23: Urine Ketones Negative (Negative) 11/05/23: Urine Blood Negative (Negative) 11/05/23: Urine Nitrite Negative (Negative) 11/05/23 19: Urine Bilirubin Negative (Negative) 11/05/23: Urine Urobilinogen Negative (Negative) 11/05/23 19: Ur Leukocyte Esterase Negative (Negative) 11/05/23 19: Urine WBC (Auto) 0-5 /hpf (0-5) 11/05/23: Urine RBC (Auto) 0-2 /hpf (0-2) 11/05/23: U Hyaline Cast (Auto) 3-5 /lpf (0-2) H 11/05/23 19: U Epithel Cells (Auto) 6-10 /hpf (0-2) H 11/05/23 19:31 Urine Bacteria (Auto) None Seen (None Seen) 11/05/23 19: Adenovirus (PCR) Not Detected (NotDetected) 11/05/23 17:58 B. pertussis DNA (PCR) Not Detected (NotDetected) 11/05/23 17:58 B.parapertussis DNA PCR Not Detected (NotDetected) 11/05/23 17:58 C. pneumoniae DNA (PCR) Not Detected (NotDetected) 11/05/23 17:58 Coronavirus OC43 (PCR) Not Detected (NotDetected) 11/05/23 17:58 Coronavirus HKU1 (PCR) Not Detected (NotDetected) 11/05/23 17:58 Coronavirus 229E (PCR) Not Detected (NotDetected) 11/05/23 17:58 SARS-CoV-2 (PCR) Not Detected (NotDetected) 11/05/23 17:58 Coronavirus NL63 (PCR) Not Detected (NotDetected) 11/05/23 17:58 Human Metapneumovir PCR Not Detected (NotDetected) 11/05/23 17:58 Influenza Type A (PCR) Not Detected (NotDetected) 11/05/23 17:58 Influenza Type B (PCR) Not Detected (NotDetected) 11/05/23 17:58 M. pneumoniae (PCR) Not Detected (NotDetected) 11/05/23 17:58 Parainfluenza 1 (PCR) Not Detected (NotDetected) 11/05/23 17:58 Parainfluenza 2 (PCR) Not Detected (NotDetected) 11/05/23 17:58 Parainfluenza 3 (PCR) Not Detected (NotDetected) 11/05/23 17:58 Parainfluenza 4 (PCR) Not Detected (NotDetected) 11/05/23 17:58 RSV (PCR) Not Detected (NotDetected) 11/05/23 17:58 Entero/Rhino (PCR) Not Detected (NotDetected) 11/05/23 17:58 Blood Type O Positive 11/12/23 05:49 Antibody Screen NEGATIVE 11/12/23 05:49 Impressions Chest X-Ray 11/09/23 05:21 XR chest 1V portable CLINICAL HISTORY: Shortness of breath. COMPARISON STUDY: Chest radiograph November 05, 2023. Chest CT June 16, 2022. FINDINGS: There is no pneumothorax. Small bilateral pleural effusions have increased in size. Bibasilar opacities have developed. Pulmonary edema has developed. Cardiomegaly is unchanged. A hiatal hernia is again noted. Bilateral hilar enlargement is due to dilatation of the central pulmonary arteries. IMPRESSION: 1. Cardiomegaly with interval development of pulmonary edema. 2. Increase in size of small bilateral pleural effusions. Associated bibasilar opacities favor atelectasis. ACT 112: Negative or not required by law. Electronically signed by: Roberto Herrera M.D. 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 Her biggest complaint throughout the stay was insomnia for which multiple medications were tried. Also seen by psychiatry and palliative. Trial of remeron and melatonin did not work. Started on ambien and uptitrated to 10 mg hs which finally seemed to work. She got sleep and felt rested today. She also had burning sensation in chest for which ACS work up remained negative, likely GI given relation with the food and resolution with maalox and PPI. She had hypertensive urgency with pulmonary edema/CHF exacerbation and hypoxia for which she was seen by cardio- her medications were uptitrated with improvement in her BP, respiratory status and symptoms. Creatinine slightly elevated over baseline but overall stable with diuresis. She has been on NC for hypoxia and remains stable at 4 L with no respiratory distress and can be weaned down at the rehab. Overnight pulse oximetry suggested sleep apnea for which she is recommended to have OP sleep study. Cleared by cardio for discharge to [facility]. She is comfortable and stable to go. Hypertensive urgency- Medications uptitrated by cardio and BP now stable. Now on HLZ 75 mg qid along with isordil 40 mg tid along with norvasc 10 mg daily and low dose toprol 12.5 bid. Continue torsemide. S/p nitro patch. Avoid LINDEN/ARB's due to renal impairment and aortic stenosis. Chest pain- no further recurrences. Cardio following. Trop chronically elevated and flat trend, EKG with no acute changes, recent cath a month ago with patent left main stent and mild-mod coronary atherosclerosis without obstruction. Possibly GI etiology given resolution with Iv ppi and scheduled maalox, and temporal relation with food. Remains on ASA, statin, BB and nitrates. Chronic diastolic CHF w acute exacerbation- Now improved with diuretics- being managed by cardio. Continue increased dose of torsemide (20 Mg MWF and 10 mg rest of the week) and follow up with cardio as OP. Moderate aortic stenosis-echo reviewed. Cardiology recommended against LINDEN/ARB's. Recommend outpatient follow-up with valve clinic Dr. Son in November. CKD4 -creatinine relatively stable, 2.3 at discharge. Monitor renal function intermittently with diuresis. Chronic back pain- PDMP reviewed. On norco at home. Constipation- resolved with bowel regimen, continue at discharge GERD/hiatal hernia, history of esophageal strictures, esophageal dysmotility disorder- On PPI and maalox Chronic anemia-hemoglobin at 7.6, No S/S of bleeding. Insomnia-ongoing issue. Psychiatry recommendations reviewed. Now on remeron and ambien. Adjust as needed. Hypoxia- on NC. wean down as tolerated. Recommended IS. ?NEENA- Oximetry suggestive of sleep apnea- 10 desaturation events noted. Recommended sleep study as OP. Seen by palliative for GOC discussion. Total Time Total Time Spent Total Time Spent (In Minutes): 38 Discharge Plan Discharge Items Patient Disposition: Transfer Inpatient Rehab Fac Reason For Visit: WEAKNESS,INSOMNIA,ABNORMAL EKG Discharge Diagnosis: Hypertensive urgency, Chronic diastolic CHF with exacerbation, moderate , CKD4 Insomnia, Hypoxia Activity: Resume your previous activity Non-emergency contact: Primary Care Provider, Lei Maker and Examiner Of Currency Call non-emergency contact if: you have any medication questions, your symptoms worsen, your pain is concerning for you and you have a fever Follow-up/Referrals: Jazzy Appiah DO [Primary Care Provider] - Diet: Heart Healthy and Low Sodium (2gm) Fluids: 1500ml (6 cups) Addtl Attending Provider Instructions: Continue the medications as prescribed. Your Hydralazine, isordil and torsemide have been uptitrated. Your nocturnal oximetry was abnormal suggesting possibility of sleep apnea. Recommended OP sleep study Follow up with cardiology, nephrology and PCP upon discharge Pending Studies at Discharge: No Stand-Alone Forms: My [facility] Skilled Items Patient informed of condition?: Yes DNR: No Discharge Level of Care: Acute rehab Communicable Disease: No Discharge Prognosis: Stable Lines: None Urinary Catheter: No Medications and DC Order Prescriptions: New torsemide 10 mg Tablet 10 mg PO SuTuThSa@0900 Qty: 30 0RF mirtazapine 15 mg Tablet 7.5 mg PO HS Qty: 30 0RF alum-mag hydroxide-simeth [Mag-Al Plus Extra Strength] 400-400-40 mg/5 mL Suspension 30 ml PO Q6H PRN (Reason: Abdominal Discomfort) Qty: 120 0RF torsemide 20 mg Tablet 20 mg PO MoWeFr@0900 Qty: 30 0RF zolpidem 10 mg Tablet 10 mg PO HS Qty: 0 0RF metoprolol succinate 25 mg Tablet Extended Release 24 Hr 12.5 mg PO BID Qty: 60 0RF Continued atorvastatin 20 mg tablet 20 mg PO DAILY hydrocodone-acetaminophen 10-325 mg tablet 1 tab PO BID PRN (Reason: Severe Pain (Scale Score 7-10)) omeprazole 20 mg capsule,delayed release(DR/EC) 20 mg PO DAILY aspirin 81 mg Tablet,Delayed Release (Dr/Ec) 81 mg PO DAILY diclofenac sodium [Voltaren Arthritis Pain] 1 % Gel 2 g EXT BID Qty: 50 0RF vitamin E 670 mg (1,000 unit) Capsule 670 mg PO DAILY ascorbic acid (vitamin C) [Vitamin C] 1,000 mg Tablet 500 mg PO Q OTHER DAY nitroglycerin [Nitrostat] 0.3 mg Tablet, Sublingual 0.3 mg sublingual DIRECTED PRN (Reason: Chest Pain) cyanocobalamin (vitamin B-12) [Vitamin B-12] 1,000 mcg Tablet 1,000 mcg PO Q OTHER DAY Cranberry Plus Vitamin C 140-100 mg Capsule 4 cap PO DAILY acetaminophen [Tylenol Extended Release] 650 mg Tablet Extended Release 650 mg PO Q8H PRN (Reason: Pain) amlodipine 10 mg tablet 10 mg PO QAM docusate sodium 100 mg Capsule 100 - 200 mg PO DAILY PRN (Reason: Constipation) pyridoxine (vitamin B6) [Vitamin B-6] 50 mg Tablet 50 mg PO DAILY cholecalciferol (vitamin D3) [Vitamin D3] 25 mcg (1,000 unit) Capsule 25 mcg PO DAILY Flintstones with Extra Iron 18 mg iron Tablet,Chewable 1 tab PO 2XWK Changed hydralazine 50 mg Tablet 75 mg PO QID Qty: 120 0RF isosorbide dinitrate 20 mg Tablet 40 mg PO BID@0700,1200 Qty: 60 0RF polyethylene glycol 3350 [Miralax] 17 gram/dose Powder 17 g PO DAILY Qty: 119 0RF Discontinued torsemide 10 mg tablet 10 mg PO DAILY Qty: 1 0RF ramelteon 8 mg tablet 8 mg PO HS Discharge Orders: Discharge Order (Routine); Ordered 11/13/23 Ordered By: Mj Welch Admission Data Admit Date/Time: 11/05/23 21:47 Attending Provider: Mj Welch Admit Provider: Kye Sapp Primary Care Provider: Jazzy Appiah Other Providers: Kye Sapp; Chris Schwartz; [facility]; Renetta Santos
== END 2023-11-13 16:03 | DRG 887 ==
LOC: ED 17:26 → SUATTDRO 21:47 → 2S 21:47